=== PATIENT | female | born 1980 | race Caucasian/White ===

== ENCOUNTER → 2017-05-01 15:04 | Outpatient (CLI) | payer OTHER, SELFPAY ==
[2017-05-01 12:54] VITALS: BP 125/86; BMI 23.5
[2017-05-01 20:03] LABS: Chlamydia Trachomatis by PCR Negative (Negative); Neisserai gonorrhoeae by PCR Negative (Negative); Probe Check PASS; Sample Adequacy Control PASS; Specimen Processing Control PASS
[2017-05-06 12:41] LABS: HPV APTIMA, High Risk Negative (Negative)
== END ==
PROVIDERS: Visit Provider Nurse Practitioner Women's Health
DX: Z12.4 Encounter for screening for malignant neoplasm of cervix (principal); Z11.3 Encounter for screening for infections with a predominantly sexual mode of transmission
CPT/HCPCS: 87491; 87591; 88175; G0145

== ENCOUNTER → 2017-12-04 13:02 | Outpatient (CLI) | payer OTHER, SELFPAY | PROVIDERS: Family Provider Nurse Practitioner Family; PCP Nurse Practitioner Family; Visit Provider Nurse Practitioner Adult Health | DX: R31.29 Other microscopic hematuria (principal) | CPT/HCPCS: 87077; 87086; 87088; 87186 ==

== ENCOUNTER → 2017-12-10 17:05 | Outpatient (CLI) | payer OTHER, SELFPAY ==
--- NOTE | 2017-12-10 17:08 | CT_ITS ---
STUDY: CT ABDOMEN AND PELVIS WITH AND WITHOUT CONTRAST REASON FOR EXAM: Female, 37 years old. Microhematuria RADIATION DOSAGE (If Supplied By Facility): CTDIvol = ( 13.57 ) mGy, DLP = ( 1099.32 ) mGycm TECHNIQUE: Transaxial images were obtained from the dome of the diaphragm to the symphysis pubis without oral contrast. 100mL ml of Isovue 300 contrast was administered. Sagittal and coronal images were reconstructed. Individualized dose optimization techniques were used for this CT. COMPARISON: None. FINDINGS: The visualized lung bases are unremarkable. The visualized portions of the heart are within normal limits. Normal liver. Normal gallbladder and extrahepatic biliary system. Normal spleen. Normal pancreas. Normal bilateral adrenal glands. Normal right kidney. Normal left kidney. No obstructive uropathy, or nephrolithiasis Normal visualized stomach. Normal small intestine. There are multiple colonic diverticula consistent with diverticulosis. The appendix is visualized and appears normal. Appendix best seen on coronal recon image 51 Normal abdominal aorta. Normal inferior vena cava. Normal retroperitoneum. Normal urinary bladder. Normal-appearing uterus, there are physiologic ovarian cysts. No demonstrated free fluid. Normal abdominal wall. Normal osseous structures. CT/CT Abd/Pelvis W/WO Contrast IMPRESSION: No obstructive uropathy No CT evidence of an acute inflammatory process, normal appendix visualized. Colonic diverticulosis Electronically Signed: Milan Arnold MD at 16:13 EDT , Service support ,
== END ==
PROVIDERS: Family Provider Nurse Practitioner Family; PCP Nurse Practitioner Family; Visit Provider Nurse Practitioner Adult Health
DX: R31.29 Other microscopic hematuria (principal)
CPT/HCPCS: 74178; Q9967

== ENCOUNTER → 2018-12-14 08:04 | Outpatient (CLI) | payer OTHER, SELFPAY ==
[2017-05-01 12:54] VITALS: BMI 23.5
--- NOTE | 2018-12-14 08:05 | VDLE_ITS ---
Reason For Study: Pain/Swelling RIGHT LEFT CFV is compressible, spontaneous, phasic, CFV is compressible, spontaneous, phasic, competent and demonstrates normal competent, and demonstrates normal augmentation. augmentation. FV is compressible, spontaneous, phasic, FV is compressible, spontaneous, phasic, competent and demonstrates normal competent and demonstrates normal augmentation. augmentation. POP V is compressible, spontaneous, phasic, POP V is compressible, spontaneous, phasic, competent and demonstrates normal competent and demonstrates normal augmentation. augmentation. T/P Trunk is compressible. T/P Trunk is compressible. PTV is compressible. PTV is compressible. RT PerV is compressible. LT PerV is compressible. SFJ is competent and measures 0.62 x 0.65 cm. SFJ is competent and measures 0.66 x 0.72 cm. GSV proximal thigh measures 0.20 x 0.22 cm. GSV proximal thigh measures 0.14 x 0.16 cm. GSV at knee measures 0.16 x 0.18 cm. GSV at knee measures 0.22 x 0.23 cm. GSV INCOMPETENT throughout for greater than GSV INCOMPETENT throughout for greater than 0.5 seconds. 0.5 seconds. ASV proximal calf is INCOMPETENT for greater SSV proximal calf is INCOMPETENT for greater than 0.5 seconds and measures 0.15 x 0.17 cm. than 0.5 seconds and measures 0.14 x 0.17 cm. SSV at junction is INCOMPETENT for greater than 0.5 seconds and measures 0.20 x 0.19 cm. Procedure Exam performed in department. Interpretation Summary Deep veins of the lower extremities are bilaterally patent and compressible segmentally. There is no evidence of deep vein thrombosis on either side. Valvular competence appears intact within the proximal deep venous systems bilaterally. The great saphenous veins appear bilaterally patent and compressible segmentally. Sapheno-femoral junctions are bilaterally competent . Segmental valvular incompetence is noted within the great saphenous veins bilaterally. Small saphenous veins are patent and incompetent bilaterally. The right accessory saphenous vein in the right proximal calf is incompetent. Ordering Physician: Ethan Chun Referring Physician: Estephania Red Performed By: Estephania Hollis Colette
== END ==
PROVIDERS: Family Provider Nurse Practitioner Family; PCP Nurse Practitioner Family; Referring Provider Surgery; Visit Provider Surgery
DX: I83.10 Varicose veins of unspecified lower extremity with inflammation (principal); M79.606 Pain in leg, unspecified; M79.89 Other specified soft tissue disorders
CPT/HCPCS: 93970

== ENCOUNTER 2019-04-01 06:06 | Day surgery (SDC) | payer OTHER, SELFPAY ==
[2019-02-17 11:09] VITALS: BMI 25.2
--- NOTE | 2019-03-24 19:09 | HP.PCM_ITS ---
Problem List (1) Chronic venous insufficiency Status: Chronic (2) Varicose veins with inflammation Status: Chronic (3) Varicose veins of both legs with edema Status: Chronic (4) Varicose veins of both lower extremities with pain Status: Chronic (5) Leg pain Status: Chronic Qualifiers: Laterality: bilateral Qualified Code(s): M79.604 - Pain in right leg; M79.605 - Pain in left leg (6) Leg swelling Status: Chronic History of Present Illness Date of Admission: 04/01/19 Chief Complaint: Chronic venous insufficiency, varicose veins with inflammation, leg pain, leg swelling ? Right lower extremity The patient is a 39 year old F [] With a longstanding history of chronic venous insufficiency, varicose veins with inflammation, leg pain, and leg swelling involving both lower extremities. At this time, her right lower extremity is more symptomatic than the left. The patient has noted varicosities in her lower extremities and associated symptoms since she was a teenager. Her symptoms have become progressively more severe. She describes pain, discomfort, and aching in her lower extremities. This has been associated with swelling. The patient has no history of thrombophlebitis. She has undergone no prior vein procedures in the past. She is active, and sleeps in a recumbent position at night. A venous duplex examination has revealed incompetence involving the right great saphenous vein, the right small saphenous vein, and the right accessory saphenous vein in the proximal calf. The implications of this finding have been discussed with the patient in detail. The options of management have been fully explained. Conservative treatment measures have been implemented, which have included leg elevation, avoidance of idle standing and sitting, graduated compression stockings, weight control measures, active lifestyle, [id number] analgesics, etc. Despite these measures, the patient has remained symptomatic, with symptoms which have adversely affected daily activities, quality of life, and job functions. Past Medical History Past Medical History (Chronic Problems): Chronic Problems (Last Reviewed 05/01/17 @ 12:56 by Cecily García) Chronic venous insufficiency (Chronic) Varicose veins with inflammation (Chronic) Varicose veins of both legs with edema (Chronic) Varicose veins of both lower extremities with pain (Chronic) Leg pain (Chronic) Leg swelling (Chronic) Allergies latex Allergy (Mild, Verified 02/17/19 11:13) Other Sensitive Home Medications: Ambulatory Orders Medication Instructions Recorded NK 05/01/17 Surgical History: Surgical History (Last Updated 05/01/17 @ 12:57 by Cecily García) 4th degree tear in delivery delivered O82 sphincterplasty Surgical History: no surgical history Psychiatric History: No pertinent psych hx [employer] History: - - The patient is a Ab1 (spontaneous) Smoking Status: Never smoker Tobacco Use: Non-smoker Alcohol: Occasional Drugs: None - *Family History Paternal Family History: Family History (Last Updated 05/01/17 @ 12:57 by Cecily García) Mother Diabetes Cancer Review of Systems Constitutional: Denies: Chills, Fever, Weight Change HEENT: Denies: Head Aches, Sinus Congestion, Sinus Drainage Cardiovascular: Denies: Chest Pain, Palpitations Respiratory: Denies: Cough, Shortness of breath at rest, Sputum production Gastrointestinal: Denies: Abdominal Pain, Nausea, Vomiting Genitourinary: Denies: Dysuria Musculoskeletal: Denies: Joint Pain, Joint Tenderness Skin: Denies: Rash, Wounds Neurological: Denies: Numbness, Tingling, Focal weakness Psychiatric: Denies: Anxiety, Depression, Homicidal Ideations, Suicidal Ideations Hematologic/ Lymphatic: Denies: Easy Bruising, Easy Bleeding VTE Information - Inpt Only VTE Present on Admission: No VTE Mechan Device Prophylaxis: SCD's - Left VTE Pharm Prophylaxis ordered?: Yes - Physical Exam Vitals/I&O's: Body Mass Index (BMI) 25.2 General: Alert, Oriented x3, Cooperative, No apparent distress, Well developed, Well nourished HEENT: Atraumatic, PERRLA, EOMI, Normocephalic Neck: Supple, No JVD, Negative Carotid Bruits, Negative Hepatojugular Reflux, No Nodes, No Nuchal Rigidity, Trachea Midline Lungs: Clear to auscultation, Normal air movement, No rhonchi, No wheeze, No rales Cardiovascular: Regular rate, Regular Rhythm, Normal S1, Normal S2, No murmurs Abdomen: Bowel Sounds Present, Soft, Non Tender Extremities: No clubbing, No cyanosis, No edema, Capillary Refill Less than 3 Seconds, No Calf Tenderness, Peripheral Pulses Normal, - - Multiple large varicosities are noted in the right lower extremity Skin: No rashes, No breakdown Musculoskeletal: No Tenderness to Palpation of Joints or Extremities, No Muscle Wasting Neurological: Cranial nerves II-XII grossly intact, Neuro grossly intact Psych/Mental Status: Normal Affect, Appropriate, Alert and oriented to time, place, person, mood and affect Assessment/Plan Impression: This is a 39-year-old generally healthy female with a longstanding history of chronic venous insufficiency, varicose veins with inflammation, leg pain, and leg swelling involving her right lower extremity. Her symptoms have been present for many years, and have become progressively more severe. Despite conservative treatment measures, the patient's symptoms have persisted, and continued to adversely affect her daily activities, quality of life, and job functions. The options of management have been fully explained. The indications and risks of endovenous laser ablation of the right great saphenous vein, the right small saphenous vein, and the incompetent right accessory saphenous vein have been discussed with the patient in detail. Plan: The patient is to be admitted for the purpose of elective endovenous laser ablation of the right great saphenous vein, the right small saphenous vein, and the right accessory saphenous vein in the proximal calf. The indications and risks of the procedure have been discussed with the patient in detail. The appropriate preprocedure consent process has been undertaken. The patient has indicated her desire to proceed.
[2019-04-01] VITALS (7 sets, daily range): BP systolic 112–122; BP diastolic 73–86; PULSE 61–68; RESP 14–18; TEMP 36.1–36.9; O2SAT 95–100; BMI 25.1
[2019-04-01 06:35] LABS: Internal QC Validated? YES +Cl - CLEAR BKGD; Pregnancy, Urine Negative Negative
[2019-04-01] MEDS: Lactated Ringers 1,000 ML 150 ML IV (06:54)
[2019-04-01] MEDS: Enoxaparin 30 MG/0.3 ML Syringe SC (06:55)
[2019-04-01] MEDS: Cefazolin 2 GM in 0.9% Normal Saline 100 ML IV (07:34)
--- NOTE | 2019-04-01 09:59 | DCINST_ITS ---
Discharge Diet: No Restrictions Discharge Activity: May Not Drive - 2-3 days May shower in (days): 2 Weight Bearing Status: Weight bearing as tolerated Lifting Restrictions: 10 pounds Keep extremity elevated above heart level: Right Leg Call your doctor if you observe: Shortness of breath, Fainting spells, Chest pain, Prolonged hiccoughing, Uncontrolled pain Suture Line Care: Avoid Pulling/Pushing Change Dressing in (Days):: 2 - Then rewrap with Edmundo daily from base of toes to upper thigh. Allergies/Adverse Reactions: Allergies latex Allergy (Severe, Verified 03/25/19 10:46) Other Sensitive Medications to take at Discharge L.acidoph,Paracasei, B.lactis [Probiotic] 1 ea PO DAILY 03/25/19 Primary Care Physician: Estephania Red NP-C [Primary Care Provider] - Test Results: Test results from this visit will be discussed in further detail at your follow- up appointment, if applicable. Please Follow Up With: Ethan Chun MD When: 10-14 days
--- NOTE | 2019-04-02 07:46 | OP.PCM_ITS ---
Problem List (1) Chronic venous insufficiency Status: Chronic (2) Varicose veins with inflammation Status: Chronic (3) Varicose veins of both legs with edema Status: Chronic (4) Varicose veins of both lower extremities with pain Status: Chronic (5) Leg pain Status: Chronic Qualifiers: Laterality: bilateral Qualified Code(s): M79.604 - Pain in right leg; M79.605 - Pain in left leg (6) Leg swelling Status: Chronic Report of Operation Date of Procedure: 04/01/19 Pre-Operative Diagnosis: Chronic venous insufficiency, Varicose veins with inflammation, Leg pain, Leg swelling - Right lower extremity Post-Operative Diagnosis: Chronic venous insufficiency, Varicose veins with inflammation, Leg pain, Leg swelling - Right lower extremity Surgery/Procedure Performed:: 1. Endovenous laser ablation of the right great saphenous vein. 2. Endovenous laser ablation of the right small saphenous vein. 3. Endovenous laser ablation of the right accessory saphenous vein (proximal calf) Description of Surgical Findings:: As above Type of Anesthesia:: General, Tumescent Anesthesiologist: Yousif Caban Specimen'faith removed: None Drains: None Estimated Blood Loss (mL): Minimal Description of Procedure: This is a 39-year-old female with a longstanding history of chronic venous insufficiency, varicose veins with inflammation, leg pain, and leg swelling involving her right lower extremity. A preoperative venous duplex examination had revealed segmental valvular incompetence involving her right great saphenous vein, right small saphenous vein, and an accessory saphenous vein in the right proximal calf. The implications of this diagnosis were discussed with the patient in detail. The options of management were fully explained. Conservative treatment measures were implemented, which included leg elevation, avoidance of idle standing and sitting, graduated compression stockings, weight control measures, active lifestyle, [id number] analgesics, etc. Despite these measures, the patient remained symptomatic, with symptoms which adversely affected daily activities, quality of life, and job functions. The indications and risks of endovenous laser ablation of the right great saphenous vein, the right small saphenous vein, and the right accessory saphenous vein were discussed with the patient in detail. The appropriate preprocedure consent process was undertaken. The patient underwent ultrasound marking of the right great saphenous vein, the right small saphenous vein, and the incompetent right accessory saphenous vein preoperatively. She was then brought to the operating room suite, placed supine upon the operating room table, where general anesthesia was administered by the anesthesia staff. The patient's right lower extremity and right groin were prepped and draped in the appropriate sterile manner. The patient was placed in reverse Trendelenburg position. Ultrasonography was used to image the right great saphenous vein in the distal calf. The micropuncture technique was used to access the right great saphenous vein percutaneously in the distal calf. In this manner, a 0.018 inch guidewire was advanced intraluminally into the right g reat saphenous vein, and was visualized by ultrasonography. A micropuncture sheath was advanced over the guidewire. The 0.018 inch guidewire was exchanged for a 0.035 inch guidewire, which was then advanced intraluminally to a level just distal to the right sapheno-femoral junction, as confirmed by ultrasound imaging. A long 4 [place]an sheath was then advanced over the guidewire, and its tip was positioned approximately 2 cm distal to the right sapheno-femoral junction. Attention was then directed to the incompetent right small saphenous vein. To enhance exposure, the right lower extremity was placed in an externally rotated position with the right knee flexed. Using ultrasound imaging and the micropuncture technique, a micropuncture sheath was introduced intraluminally within the right small saphenous vein near the inferior border of the right gastrocnemius muscle, and was left in place, capped, for subsequent access purposes. Attention was then directed to the incompetent right accessory saphenous vein in the proximal calf. Using ultrasound imaging and the micropuncture technique, a micropuncture sheath was introduced intraluminally and was left in place, capped, for subsequent access purposes. Attention was then redirected to the long 4 [place] sheath which had been previously placed intraluminally within the right great saphenous vein. Perivenous tumescent anesthesia was injected from the 4 [place] sheath exit site up to the tip of the sheath near the right sapheno-femoral junction. This was performed segmentally using ultrasound imaging. The AngioDynamics laser fiber was then introduced into the 4 [place] sheath and coupled appropriately. Ultrasonography was used to confirm that the tip of the laser fiber was positioned within the right great saphenous vein approximately 2-1/2 to 3 cm distal to the right sapheno-femoral junction. The patient was placed in Trendelenburg position and the laser fiber was activated. The AngioDynamics laser was slowly withdrawn at a constant rate throughout the length of the right great saphenous vein, thereby ablating the right great saphenous vein segmentally. The energy applied was approximately 60 to 80 J/cm. Following the laser ablation, the laser fiber and sheath were removed, and manual pressure was briefly applied to the percutaneous access site to achieve hemostasis. Attention was then directed to the micropuncture sheath which had been previously placed intraluminally within the right small saphenous vein. A 0.035 inch guidewire was introduced intraluminally and its tip was positioned within the proximal portion of the right small saphenous vein. The long 4 [place] sheath was then advanced over the guidewire and into position within the lumen of the right small saphenous vein. Perivenous tumescent anesthesia was injected from the 4 [place] sheath exit site up to the tip of the 4 [place]an sheath in the proximal right small saphenous vein. This was performed segmentally using ultrasound imaging. The AngioDynamics laser fiber was then introduced into the 4 [place] sheath and coupled appropriately. Ultrasonography was used to confirm that the tip of the laser fiber was positioned within the proximal right small saphenous vein, several centimeters distal to its junction with the deep venous system, and remaining within the superficial portion of the right small saphenous vein. The patient was placed in Trendelenburg position and the laser fiber was activated. The AngioDynamics laser was slowly withdrawn at a constant rate throughout the length of the right small saphenous vein, thereby ablating the right small saphenous vein segmentally. The energy applied was approximately 60 to 80 J/cm. Following the laser ablation, the laser fiber and sheath were removed, and manual pressure was briefly applied to the percutaneous access site to achieve hemostasis. Attention was then directed to the micropuncture sheath which had been previously placed intraluminally within the incompetent right accessory saphenous vein. A 0.035 inch guidewire was introduced intraluminally and positioned within the proximal portion of the incompetent accessory saphenous vein. The long 4 [place]an sheath was advanced over the guidewire and into position intraluminally within the right accessory saphenous vein. Perivenous tumescent anesthesia was injected from the 4 [place] sheath exit site up to the tip of the sheath. This was performed segmentally using ultrasound imaging. The AngioDynamics laser fiber was then introduced into the 4 [place]an sheath and coupled appropriately. Ultrasonography was used to confirm that the tip of the laser fiber was positioned within the proximal right accessory saphenous vein, abutting the previously ablated right great saphenous vein. The patient was placed in Trendelenburg position and the laser fiber was activated. The AngioDynamics laser was slowly withdrawn at a constant rate throughout the length of the right accessory saphenous vein, thereby ablating the right accessory saphenous vein segmentally. The energy applied was approximately 60 to 80 J/cm. Following the laser ablation, the laser fiber and sheath were removed, and manual pressure was briefly applied to the percutaneous access site to achieve hemostasis. After assuring satisfactory hemostasis, the access sites were approximated using Cavilon and Steri-Strips. Dry sterile gauze dressings were applied over each of the access sites, and the leg was wrapped from the base of the toes to the upper thigh with Kerlix, followed by Edmundo wrap. The blood loss for the procedure was minimal. The sponge, needle, and instrument counts at the end of the procedure were correct. The patient tolerated the procedure well and was transported from the operating room to the postanesthesia care unit in stable condition. The amount of tumescent anesthesia utilized, number of joules applied, and treatment times were recorded separately. - Complications None - Admit VTE Documentation VTE Present on Admission: No VTE Mechan Device Prophylaxis: SCD's - Left VTE Pharm Prophylaxis ordered?: Yes
== END 2019-04-01 11:45 | disposition home or self-care (01) ==
LOC: SDC 06:07 → AC 06:08
PROVIDERS: Family Provider Nurse Practitioner Family; PCP Nurse Practitioner Family; Referring Provider Surgery; Visit Provider Surgery
PROC: (CPT 36478; principal; 2019-04-01 07:15)
DX: I83.813 Varicose veins of bilateral lower extremities with pain (principal); I83.11 Varicose veins of right lower extremity with inflammation; I83.12 Varicose veins of left lower extremity with inflammation; R60.0 Localized edema; Z91.040 Latex allergy status; Z87.891 Personal history of nicotine dependence
CPT/HCPCS: 01930; 36478; 36479; 81025; 93971; J7040; J7120; J2405

== ENCOUNTER → 2019-07-28 | Outpatient (CLI) | payer OTHER, SELFPAY ==
[2019-07-28 14:14] VITALS: BMI 25.1
[2019-07-28 16:13] LABS: Red Blood Cells-Urine 0 SEEN /hpf (0-5); White Blood Cells 0 SEEN /hpf (0-5)
[2019-07-28 16:33] LABS: Color, Urine Yellow (Yellow); Glucose, Dipstick Normal (Normal); Ketone-Dipstick Negative (Negative); Leukocyte Esterase-Dipstick Negative /ul (Negative); Nitrite-Dipstick Negative (Negative); Occult Blood-Urine 25 /ul (Negative); Protein-Dipstick Negative (Negative); Specific Gravity, Urine 1.015 (1.002-1.030); Urine Bilirubin Dipstick Negative (Negative); Urine Clarity Clear (Clear); Urine Urobilinogen Normal (Normal)
[2019-07-28 16:40] LABS: Squamous Epithelial Cells - UA 0-5 SEEN /hpf (5-10)
[2019-07-28 16:41] LABS: Bacteria RARE /hpf (None Seen); Mucous, Urine RARE /hpf (<or=2+)
== END | disposition home or self-care (01) ==
LOC: LABSPEC 16:05
PROVIDERS: PCP Nurse Practitioner Family; Referring Provider Physician Assistant; Visit Provider Physician Assistant
DX: R30.0 Dysuria (principal)
CPT/HCPCS: 81001; 87086; 87088

== ENCOUNTER → 2019-08-05 09:08 | Outpatient (CLI) | payer OTHER, SELFPAY ==
[2019-04-01 06:50] VITALS: BMI 25.1
[2019-07-28 14:14] VITALS: BMI 25.1
--- NOTE | 2019-08-05 09:09 | BI_ITS ---
MAMMOGRAPHY - BILATERAL SCREENING REASON FOR EXAM: Female, 39 years old. Routine annual screening examination. PERTINENT HISTORY: Non-contributory. TECHNIQUE: Digital bilateral breast porsche (3D mammographic acquisition) in the CC and MLO projections. 2-D mediolateral oblique (MLO) and craniocaudad (CC) views of both breasts were obtained. CAD: Full Field Digital Mammography with Computer Added Detection was performed. CAD was performed on this study. COMPARISON: None. Baseline examination. FINDINGS: Breast Composition: The breasts are heterogeneously dense, which may obscure small masses. There are no dominant masses or suspicious calcifications. Small bilateral benign-appearing axillary lymph nodes No other significant abnormalities are identified. BI/SCREEN MAMM (CAD) W/PORSCHE BILAT IMPRESSION: Negative screening mammogram. Yearly followup mammogram recommended. (A) ASSESSMENT CATEGORY: BIRADS Category 2: Benign. A letter regarding these results will be sent to the patient by the facility within 30 days. Approximately 10% of breast cancers are not detected by mammography. A normal mammogram should not delay biopsy of a clinically suspicious abnormality. [id number] Electronically Signed: Marek Thompson, at 10:08 EDT , Service support ,
--- NOTE | 2019-08-05 13:01 | VDLE_ITS ---
Reason For Study: S/P EVLA 04/01/2019 RIGHT LEFT CFV is compressible, spontaneous, phasic, CFV is compressible, spontaneous, phasic, competent and demonstrates normal competent, and demonstrates normal augmentation. augmentation. FV is compressible, spontaneous, phasic, FV is compressible, spontaneous, phasic, competent and demonstrates normal competent and demonstrates normal augmentation. augmentation. POP V is compressible, spontaneous, phasic, POP V is compressible, spontaneous, phasic, competent and demonstrates normal competent and demonstrates normal augmentation. augmentation. T/P Trunk is compressible. T/P Trunk is compressible. PTV is compressible. PTV is compressible. RT PerV is compressible. LT PerV is compressible. SFJ is competent and measures 0.53 x 0.56 cm. SFJ is competent and measures 0.51 x 0.55 cm. GSV, SSV and ASV prox calf are occluded s/p GSV proximal thigh measures 0.47 x 0.45 cm. EVLA. GSV at knee measures 0.40 x 0.43 cm. Procedure GSV INCOMPETENT throughout for greater than Exam performed in department. 0.5 seconds. Could not duplicate incompetent left SSV ASV proximal calf is INCOMPETENT for greater compared to 12/14/18. than 0.5 seconds and measures 0.31 x 0.30 cm. SSV at junction is competent and measures 0.22 x 0.22 cm. Interpretation Summary Deep veins of the lower extremities are bilaterally patent and compressible segmentally. There is no evidence of deep vein thrombosis on either side. Valvular competence appears intact within the proximal deep venous systems bilaterally. The right sapheno-femoral junction is competent . The right great saphenous vein, small saphenous vein, and accessory saphenous vein in the proximal right calf are occluded, consistent with a prior endothermal ablation procedure. The left great saphenous vein appears patent and compressible segmentally. The left sapheno-femoral junction is competent . The left great saphenous vein appears segmentally incompetent. The left small saphenous vein is patent and competent. The left accessory saphenous vein in the proximal calf is incompetent. Ordering Physician: Ethan Chun Referring Physician: Estephania Red Performed By: Estephania Hollis Colette
== END ==
PROVIDERS: PCP Nurse Practitioner Family; Referring Provider Nurse Practitioner Women's Health; Visit Provider Surgery
DX: Z12.31 Encounter for screening mammogram for malignant neoplasm of breast (principal); Z98.890 Other specified postprocedural states
CPT/HCPCS: 77063; 77067; 93970

== ENCOUNTER → 2019-10-13 | Outpatient (CLI) | payer OTHER, SELFPAY ==
[2019-10-13 13:48] VITALS: BMI 25.1
== END | disposition home or self-care (01) ==
LOC: LABSPEC 16:11
PROVIDERS: PCP Nurse Practitioner Family; Referring Provider Nurse Practitioner Women's Health; Visit Provider Nurse Practitioner Women's Health
DX: N39.0 Urinary tract infection, site not specified (principal)
CPT/HCPCS: 87086; 87088

== ENCOUNTER 2019-11-04 08:29 | Day surgery (SDC) | payer OTHER, SELFPAY ==
[2019-07-28 14:14] VITALS: BMI 25.1
[2019-10-19 11:41] VITALS: BMI 25.1
--- NOTE | 2019-10-30 18:43 | PCM.HP.STD ---
Problem List (1) Chronic venous insufficiency Status: Chronic (2) Varicose veins with inflammation Status: Chronic (3) Varicose veins of both legs with edema Status: Chronic (4) Varicose veins of both lower extremities with pain Status: Chronic (5) Leg pain Status: Chronic Qualifiers: Laterality: bilateral (6) Leg swelling Status: Chronic History of Present Illness Date of Admission: 11/04/19 Chief Complaint: Chronic venous insufficiency, varicose veins with inflammation, leg pain, leg swelling?right lower extremity The patient is a 39 year old F [] female with a longstanding history of chronic venous insufficiency, varicose veins with inflammation, leg pain, and leg swelling involving her lower extremities. Her right lower extremity is more symptomatic than the left. The patient has previously undergone endovenous laser ablation of the right great saphenous vein, the right small saphenous vein, and the right anterior accessory saphenous vein in the proximal calf. Procedure was performed on April 01, 2019. The patient has recovered uneventfully. However, large painful varicosities persist in the patient's right lower extremity. Patient experiences symptoms which adversely affect daily activities, quality of life, and job functions. Conservative treatment measures have been implemented, which have included leg elevation, avoidance of idle standing and sitting, graduated compression stockings, weight control measures, active lifestyle, gunt-ynw-bqgzjtf analgesics, etc. Despite these measures, the patient has remained symptomatic, experiencing symptoms which adversely affect daily activities, quality of life, and job functions. Past Medical History Past Medical History (Chronic Problems): Chronic Problems (Last Updated 10/19/19 @ 11:13 by Vero Pathak) Chronic venous insufficiency (Chronic) Varicose veins with inflammation (Chronic) Varicose veins of both legs with edema (Chronic) Varicose veins of both lower extremities with pain (Chronic) Leg pain (Chronic) Leg swelling (Chronic) Medical History: Medical History (Last Updated 10/19/19 @ 11:13 by Vero Pathak) vericose vein surgery Allergies latex Allergy (Severe, Verified 10/27/19 10:20) Other Sensitive Home Medications: Ambulatory Orders Medication Instructions Recorded L.acidoph,Paracasei, B.lactis 1 ea PO DAILY 03/25/19 [Probiotic] Surgical History: Surgical History (Last Reviewed 10/19/19 @ 11:12 by Vero Pathak) 4th degree tear in delivery delivered O82 sphincterplasty Surgical History: - - The patient has previously undergone endovenous laser ablation of the right great saphenous vein, small saphenous vein, and accessory saphenous vein in the proximal calf. The procedure was performed on April 01, 2019. 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: - - The patient is a Ab1 Smoking Status: Former smoker Tobacco Use: Non-smoker Alcohol: Occasional Drugs: None - *Family History Maternal Family History: Family History (Last Reviewed 10/19/19 @ 11:12 by Vero Pathak) Mother Diabetes Cancer History Items: Diabetes VTE Information - Inpt Only VTE Present on Admission: No VTE Mechan Device Prophylaxis: SCD's - Left VTE Pharm Prophylaxis ordered?: Yes - Physical Exam Vitals/I&O's: Body Mass Index (BMI) 25.1 General: Alert, Oriented x3, Cooperative, No apparent distress, Well developed, Well nourished HEENT: Atraumatic, PERRLA, EOMI, Normocephalic Neck: Supple, No JVD, Negative Carotid Bruits, Negative Hepatojugular Reflux, No Nuchal Rigidity, Trachea Midline Lungs: Clear to auscultation, Normal air movement, No rhonchi, No wheeze, No rales Cardiovascular: Regular rate, No murmurs Abdomen: Bowel Sounds Present, Soft, Non Tender Extremities: No clubbing, No cyanosis, No edema, Capillary Refill Less than 3 Seconds, No Calf Tenderness, - - Multiple large varicosities are noted in the right lower extremity. There are no open wounds or ulcerations. There are no significant skin changes. Skin: No rashes, No breakdown Musculoskeletal: No Tenderness to Palpation of Joints or Extremities, No Muscle Wasting Neurological: Cranial nerves II-XII grossly intact, Neuro grossly intact Psych/Mental Status: Normal Affect, Appropriate, Alert and oriented to time, place, person, mood and affect Assessment/Plan This is a 39-year-old generally healthy white female with a longstanding history of chronic venous disease. She suffers from chronic venous insufficiency, varicose veins with inflammation, leg pain, and leg swelling in her right lower extremity. She has previously undergone successful endothermal ablation of the incompetent superficial veins in the right lower extremity. Large painful varicose veins have persisted. Despite conservative treatment measures, including leg elevation, avoidance of idle standing and sitting, graduated compression stockings, weight control measures, active lifestyle, anti-inflammatory medications, etc., the patient has continued to have symptoms which adversely affect daily activities, quality of life, and job functions. The options of management have been fully explained. The option of undergoing stab phlebectomy (microphlebectomy) of right lower extremity varicose veins has been discussed with the patient in detail. The indications and risks have been thoroughly explained. The potential benefits have been discussed in detail. The patient's questions have been answered. The patient has indicated her desire to proceed with microphlebectomy of right lower extremity varicose veins. The indications and risks of the procedure have been discussed with the patient detail. The appropriate preprocedure consent process has been undertaken. The patient is to be admitted for outpatient elective surgery.
[2019-11-04] VITALS (8 sets, daily range): BP systolic 105–141; BP diastolic 66–100; PULSE 52–94; RESP 14–18; TEMP 36.1–37.1; O2SAT 98–100; BMI 24.3
--- NOTE | 2019-11-04 | MISC_PTH ---
PATIENT: CHARLIE ROMERO LOC: [facility] – [place] U#:[id number] AGE/SX: 39/F ROOM: RE11/04/[address]: Dr. Ethan Chun MD : 1980 BED: DIS: 11/04/2019 SPEC #: [id number] RECD: 11/04/19 13:25 STATUS: ARMOND REMaida #: [id number] KRISTOFER: 11/04/19 00:[address]: Ethan Chun DEPT: SURGICAL PATHOLOGY RECD BY: Bakari Aguirre ENTERED: 11/04/19 13:25 SP TYPE: [facility] [place] VANGIE DR: Estephania Red, JAXSON Tissues: Vein, NOS Procedures: Surgery Specimen Level III HEADER OPERATION: Microphlebectomy right leg PRE-OP DIAGNOSIS: Varicose veins right leg TISSUE SUBMITTED: Varicose veins right leg MICROSCOPIC DIAGNOSIS Varicose veins of right leg, microphlebectomy: Ectatic vascular tissue consistent with varicose veins. AM:za 11/05/19 MICROSCOPIC DESCRIPTION Slides are reviewed. GROSS DESCRIPTION Received in fixative is one container labeled with the patient's name and designated varicose veins right leg. The specimen consists of multiple tubular pieces of bansal soft tissue measuring in aggregate 2.5 x 2.5 x 0.1 cm and 0.1-3 cm in diameter and 0.1-0.2 cm in diameter. The entire specimen is submitted in one cassette. / SIOBHAN:za 11/04/19 TC:5 CPT: 86957
[2019-11-04] MEDS: Enoxaparin 30 MG/0.3 ML Syringe SC (07:00)
[2019-11-04 08:58] LABS: Internal QC Validated? YES +Cl - CLEAR BKGD; Pregnancy, Urine Negative Negative
[2019-11-04] MEDS: Lactated Ringers 1,000 ML 150 ML IV (09:11)
[2019-11-04] MEDS: Cefazolin 2 GM in 0.9% Normal Saline 100 ML IV (10:55)
[2019-11-04] MEDS: Lactated Ringers 1,000 ML 65 ML IV (12:15)
--- NOTE | 2019-11-04 12:42 | DCINST_ITS ---
Discharge Diet: No Restrictions Discharge Activity: May Not Drive May shower in (days): 2 Weight Bearing Status: Weight bearing as tolerated Lifting Restrictions: 10 pounds Keep extremity elevated above heart level: Right Leg Call your doctor if you observe: Shortness of breath, Chest pain, Prolonged hiccoughing, Uncontrolled pain Suture Line Care: Avoid Pulling/Pushing Remove Dressing in (days):: 2 - The rewrap leg with Edmundo daily from base of toes to upper thigh Allergies/Adverse Reactions: Allergies latex Allergy (Severe, Verified 10/27/19 10:20) Other Sensitive Medications to take at Discharge L.acidoph,Paracasei, B.lactis [Probiotic] 1 ea PO DAILY 03/25/19 Primary Care Physician: Estephania Red NP-C [Primary Care Provider] - Test Results: Test results from this visit will be discussed in further detail at your follow- up appointment, if applicable. Please Follow Up With: Ethan Chun MD - Call [phone] to schedule a followup appointment. When: 10-14 days
[2019-11-04] MEDS: oxyCODONE 5 MG Tablet PO (14:06)
--- NOTE | 2019-11-06 12:24 | OP.PCM_ITS ---
Problem List (1) Chronic venous insufficiency Status: Chronic (2) Varicose veins with inflammation Status: Chronic (3) Varicose veins of both legs with edema Status: Chronic (4) Varicose veins of both lower extremities with pain Status: Chronic (5) Leg pain Status: Chronic Qualifiers: Laterality: bilateral (6) Leg swelling Status: Chronic Report of Operation Date of Procedure: 11/04/19 Pre-Operative Diagnosis: Chronic venous insufficiency, Varicose veins with inflammation, Leg pain, Leg swelling - Right lower extremity Post-Operative Diagnosis: Chronic venous insufficiency, Varicose veins with inflammation, Leg pain, Leg swelling - Right lower extremity Surgery/Procedure Performed:: Stab phlebectomy (microphlebectomy) of right lower extremity varicose veins (24 incisions) Description of Surgical Findings:: As above registered mail clerk: None Type of Anesthesia:: General Anesthesiologist: Anibal Meadows Specimen's removed: Varicose vein segments Drains: None Estimated Blood Loss (mL): Minimal Description of Procedure: This is a 39-year-old female with a longstanding history of chronic venous disease. The patient suffers from chronic venous insufficiency, varicose veins with inflammation, leg pain, and leg swelling in her right lower extremity. She has previously undergone endovenous laser ablation of the right great saphenous vein, right small saphenous vein, and the right anterior accessory saphenous vein. Despite the procedure, large, bulging, painful varicosities have persisted in her right lower extremity. Conservative treatment measures have been implemented, which have included leg elevation, avoidance of idle standing and sitting, graduated compression stockings, weight control measures, active lifestyle, pqfz-eht-bfktnqe analgesics, etc. Despite these measures, the patient has remained symptomatic, with symptoms which have adversely affected daily activities, quality of life, and job functions. The options of management have been fully explained. The indications and risks of microphlebectomy of right lower extremity varicose veins were discussed with the patient in detail. The expectations of the procedure were explained. The appropriate preprocedure consent process was undertaken. The varicose veins in the patient's right lower extremity were marked with indelible ink preoperatively with the patient in the standing position. She was then brought to the operating room suite where general anesthesia was administered by the anesthesia staff. The patient was placed in the prone position, exposing the varicosities in her right lower extremity, which were located posteriorly. The right lower extremity was prepped and draped in the appropriate sterile manner. The patient was then positioned in gentle Trendelenburg position. Attention was directed to the multiple varicosities in the right lower extremity which had been marked with the patient in the standing position preoperatively. The microphlebectomy procedure was performed in standard fashion. In each case, a small stab incision was created overlying the varicosity, using an 18-gauge hypodermic needle. A phlebectomy hook was then used to deliver the varicose vein through the incision, and the vein was divided and avulsed for several centimeters in each direction when possible. In each case, manual pressure was applied to the phlebectomy site to achieve hemostasis. The procedure was repeated multiple times at each of the marked sites, and a total of 24 incisions were required for complete phlebectomy of the marked varicose veins. After assuring satisfactory hemostasis, the incisions were approximated using Cavilon and Steri-Strips. The patient was then returned to the supine position, and dry sterile gauze dressings were applied over each of the incisions, and the leg was wrapped from the base of the toes to the upper thigh with Kerlix, followed by Edmundo wrap. The blood loss for the procedure was minimal. The sponge, needle, and instrument counts at the end of the procedure were correct. The patient tolerated the procedure well and was transported from the operating room to the post-anesthesia care unit in stable condition. - Complications None - Admit VTE Documentation VTE Present on Admission: No VTE Mechan Device Prophylaxis: SCD's - Left VTE Pharm Prophylaxis ordered?: Yes
== END 2019-11-04 14:41 | disposition home health service (06) ==
LOC: SDC 08:30 → AC 08:31
PROVIDERS: Anesthesiology; PCP Nurse Practitioner Family; Referring Provider Surgery; Visit Provider Surgery
PROC: (CPT 37766; principal; 2019-11-04 09:45)
DX: I83.12 Varicose veins of left lower extremity with inflammation (principal); I83.11 Varicose veins of right lower extremity with inflammation; I83.813 Varicose veins of bilateral lower extremities with pain; I83.893 Varicose veins of bilateral lower extremities with other complications; Z11.59 Encounter for screening for other viral diseases; Z87.891 Personal history of nicotine dependence
CPT/HCPCS: 01520; 37766; 81025; 87635; 88304; 94799; J7120; J2405; U0003

== ENCOUNTER → 2019-11-18 12:04 | Outpatient (CLI) | payer OTHER, SELFPAY ==
[2019-11-04 08:55] VITALS: BMI 24.3
--- NOTE | 2019-11-18 12:04 | US_ITS ---
STUDY: ULTRASOUND OF THE FEMALE PELVIS - COMPLETE REASON FOR EXAM: Female, 39 years old. Menorrhagia LMP: 10/27/2019 TECHNIQUE: Transabdominal and Transvaginal TECHNICAL QUALITY: Adequate. COMPARISON: None. FINDINGS: The uterus is anteverted and is in a midline position. The uterus measures 8.7 x 6.6 x 5.0 cm. Normal uterine cervix. The endometrium measures 7 mm in thickness, and is hyperechoic. There is no demonstrated endometrial mass, there are small myometrial cysts.. There is no demonstrated myometrial mass. I.U.D. - The patient does not have an I.U.D. The right ovary is visualized. The right ovary measures 2.7 x 2.3 x 1.7 cm. There is a septated 1.6 cm cyst. There is normal arterial and normal venous vascularity. The left ovary is visualized. The left ovary measures 2.1 x 1.4 x 1.1 cm. There is a simple 0.9 cm follicular cyst There is normal arterial and normal venous vascularity. There is no fluid in the cul-de-sac. The bladder is sonographically normal US/Transvaginal Non- IMPRESSION: No suspicious sonographic findings Electronically Signed: Milan Arnold MD at 17:19 EDT , Service support ,
--- NOTE | 2019-11-18 12:04 | US_ITS ---
STUDY: ULTRASOUND OF THE FEMALE PELVIS - COMPLETE REASON FOR EXAM: Female, 39 years old. Menorrhagia LMP: 10/27/2019 TECHNIQUE: Transabdominal and Transvaginal TECHNICAL QUALITY: Adequate. COMPARISON: None. FINDINGS: The uterus is anteverted and is in a midline position. The uterus measures 8.7 x 6.6 x 5.0 cm. Normal uterine cervix. The endometrium measures 7 mm in thickness, and is hyperechoic. There is no demonstrated endometrial mass, there are small myometrial cysts.. There is no demonstrated myometrial mass. I.U.D. - The patient does not have an I.U.D. The right ovary is visualized. The right ovary measures 2.7 x 2.3 x 1.7 cm. There is a septated 1.6 cm cyst. There is normal arterial and normal venous vascularity. The left ovary is visualized. The left ovary measures 2.1 x 1.4 x 1.1 cm. There is a simple 0.9 cm follicular cyst There is normal arterial and normal venous vascularity. There is no fluid in the cul-de-sac. The bladder is sonographically normal US/Pelvic (Non ) IMPRESSION: No suspicious sonographic findings Electronically Signed: Milan Arnold MD at 17:19 EDT , Service support ,
== END ==
PROVIDERS: PCP Nurse Practitioner Family; Referring Provider Nurse Practitioner Women's Health; Visit Provider Nurse Practitioner Women's Health
DX: N92.0 Excessive and frequent menstruation with regular cycle (principal)
CPT/HCPCS: 76830; 76856

== ENCOUNTER 2020-02-08 10:48 | Day surgery (SDC) | payer OTHER, SELFPAY ==
[2019-11-24 08:15] VITALS: BMI 24.3
[2020-01-27 14:01] VITALS: BMI 24.3
[2020-02-08 11:17] VITALS: BP 113/72; PULSE 72; RESP 16; TEMP 37.1; O2SAT 100; BMI 25.2
[2020-02-08 11:23] LABS: Internal QC Validated? YES +Cl - CLEAR BKGD; Pregnancy, Urine Negative Negative
[2020-02-08] MEDS: Lactated Ringers 1,000 ML 125 ML IV (11:40)
[2020-02-08 11:58] LABS: Hematocrit 42.5 % (37-47); Hemoglobin 13.7 g/dL (12.0-15.0); Mean Corp Hgb Conc 32.2 g/dL (32-36); Mean Corpuscular Hgb 30.2 pg (27.0-32.0); Mean Corpuscular Volume 93.8 fL (81-99); Mean Platelet Vol. 9.3 fl (6.2-12.0); Platelet Count 326 K/mm3 (150-450); RBC Distribution Width CV 12.7 % (11.6-14.6); RBC Distribution Width SD 43.7 fl (35.1-43.9); Red Blood Count 4.53 M/mm3 (4.2-5.4); White Blood Count 5.3 K/mm3 (4.4-11.0)
--- NOTE | 2020-02-08 12:15 | PCM.HPOB.BLA ---
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 Patient continues to have frequent heavy bleeding. Patient reports periods most recently every 16 to 17 days. Reports this past month had extremely severe pain with very heavy bleeding. Female Reproductive History Menopausal Symptoms: No hot flashes Pregancy History 3 Elective abortions Hx Para 2 Spontaneous abortions Hx # Term Pregnancies Ectopic pregnancies Hx # Pregnancies Multiple births # of living children Past Pregnancies Del. Date Name GA/Weeks Outcome Route Bth Weight Infant Gen Labor Lgth Anesthesia Del Locatn Provider FOB Unknown 1997 Nora Female Janenedavide Unknown 2007 Junior Female Ankit ROS Const Constitutional: Reports system reviewed and no additional complaints, except as docu; denies chills or fever(s) Eyes Eyes: Reports system reviewed and no additional complaints, except as docu ENT ENT: Reports system reviewed and no additional complaints, except as docu Cardio Card: Reports system reviewed and no additional complaints, except as docu; denies chest pain or leg swelling Resp Resp: Reports system reviewed and no additional complaints, except as docu; denies cough or dyspnea GI GI: Reports system reviewed and no additional complaints, except as docu; denies constipation, nausea or vomiting : Reports system reviewed and no additional complaints, except as docu and heavy periods; denies difficulty urinating, painful urination, hot flashes, metrorrhagia, pelvic pain, sexual problems, urinary incontinence, vaginal discharge, vaginal dryness, vaginal odor or vaginal itching Musc Musc: Reports system reviewed and no additional complaints, except as docu Skin Skin/Breast: Reports system reviewed and no additional complaints, except as docu Neuro Neuro: Reports system reviewed and no additional complaints, except as docu Psych Psych: Reports system reviewed and no additional complaints, except as docu Exam Const General: cooperative, healthy appearing, comfortable, well developed, well groomed Orientation: alert, awake, oriented x3 Neck Neck: normal visual inspection, full ROM Resp Effort & Inspection: normal respiratory effort, able to speak in complete sentences, symmetric chest movement Cardio Rate: regular rate Skin General: no rashes or lesions noted, elasticity normal, turgor normal Lesions: no lesions Rashes: no rashes Neuro General: alert, awake, oriented x3 Cranial Nerves: CN's II-XI intact bilaterally, PERRL, EOM intact bilaterally Cognition: normal cognition Speech: speech normal Gait: normal gait Extrem General: normal to inspection, full ROM, no pedal edema Psych Appearance: grossly normal Mental Status: mental status grossly normal Mood: congruent mood Affect: normal affect Speech and Movement: speech and movement normal Attitude: cooperative Thought Process: normal Thought Content: normal Assessment & Plan 1. Abnormal uterine bleeding (AUB) N93.9 Plan Presents for preop visit for hysteroscopy, D&C, Lindsay endometrial ablation. Again reviewed risks of procedure with patient and she voices understanding. Patient given opportunity to ask questions. Again reiterated that with doing D&C at time of surgery, if any abnormalities were noted she would likely require additional surgery in the future. Reviewed with patient that there is always a chance of failure of endometrial ablation and that there is always a possibility of not being able to complete the procedure as planned. All questions were answered to the best of my ability. Provided with preop information for day of procedure. Coding Level of Care Code Off vis,est,level 3 Diagnoses Abnormal uterine bleeding (AUB) N93.9 UPDATE- I have seen the patient and performed any clinically relevant updates to the history and physical exam. Babs Haddad MD
--- NOTE | 2020-02-08 12:35 | EMB_PTH ---
PATIENT: CHARLIE ROMERO LOC: [facility] – [place] U#:[id number] AGE/SX: 40/F ROOM: RE02/08/[address]: Dr. Babs Haddad MD : 1980 BED: DIS: 02/08/2020 SPEC #: [id number] RECD: 02/09/20 07:30 STATUS: ARMOND REMaida #: [id number] KRISTOFER: 02/08/20 12:[address]: Babs Haddad DEPT: SURGICAL PATHOLOGY RECD BY: Serena Calderon ENTERED: 02/09/20 08:59 SP TYPE: ENDOM BX/C VANGIE DR: JAXSON Jett Tissues: Endometrium, NOS Procedures: Surgery Specimen Level IV HEADER OPERATION: Hysteroscopy, D & C Lindsay, endometrial ablation PRE-OP DIAGNOSIS: Abnormal uterine bleeding TISSUE SUBMITTED: Endometrial curettings MICROSCOPIC DIAGNOSIS Endometrium, curettings: Proliferative endometrium with focal stromal breakdown. Rare fragments of benign superficial endocervix. AM:za 02/10/20 MICROSCOPIC DESCRIPTION Slides are reviewed. GROSS DESCRIPTION Received in fixative is one container labeled with the patient's name and designated endometrial curettings. The specimen consists of multiple irregular fragments of light to dark bansal soft tissue that in aggregate measure 2 x 1.5 x 0.2 cm. The specimen is totally submitted in one cassette. / AM:za 02/09/20 TC:5 CPT: 56019
[2020-02-08 13:20] VITALS: BP 113/72; BP 114/82; PULSE 63; RESP 14; TEMP 36.6; O2SAT 100
[2020-02-08 13:25] VITALS: BP 113/72; PULSE 67; RESP 14; O2SAT 100
[2020-02-08 13:30] VITALS: BP 111/72; BP 113/72; PULSE 65; RESP 14; O2SAT 100
--- NOTE | 2020-02-08 13:30 | DCINST_ITS ---
Discharge Diet: No Restrictions Discharge Activity: Return to Normal Activity, May Shower, May Take a Tub Bath - in 2 weeks. Allergies/Adverse Reactions: Allergies latex Allergy (Severe, Verified 01/31/20 08:51) Other Sensitive Medications to take at Discharge L.acidoph,Paracasei, B.lactis [Probiotic] 1 ea PO DAILY 03/25/19 Ibuprofen [Motrin] 600 mg PO Q6H PRN PRN #30 tab 02/08/20 The following prescriptions were given: Ibuprofen [Motrin] 600 mg PO Q6H PRN PRN #30 tab PRN Reason: Pain Transmission Status: Pending to [facility] Primary Care Physician: Estephania Red NP, RESIDENT PHYSICIAN IN RADIOLOGY-C [Primary Care Provider] - Test Results: Test results from this visit will be discussed in further detail at your follow- up appointment, if applicable.
--- NOTE | 2020-02-08 13:31 | PCM.OPRPT ---
Problem List (1) Abnormal uterine bleeding (AUB) Status: Acute Report of Operation Date of Procedure: 02/08/20 Pre-Operative Diagnosis: AUB Post-Operative Diagnosis: Same Surgery/Procedure Performed:: Hysteroscopy, D&C, Lindsay endometrial ablation Description of Surgical Findings:: Normal-appearing uterine cavity. Bilateral tubal ostia visualized. Uterine cavity length 5 cm. 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 She was prepped and draped in the dorsolithotomy position with yellowfin stirrups. A weighted speculum space in the posterior aspect of the vagina and a right angle retractor was used to visualize the anterior lip of the cervix. The inner lip of the cervix was grasped with a single-tooth tenaculum. The cervical length was found to be 5 cm. The total length was sounded and found to be 9 cm. The cervix was sequentially dilated using Pepito cervical dilators to accommodate a 5 mm hysteroscope. The hysteroscope was introduced into the uterine cavity. The uterine cavity was noted to be normal and both tubal ostia were visualized without difficulty. Hysteroscope was removed. A sharp uterine curettage was then performed. The Lindsay device was then introduced into the uterine cavity. The device passed both security checks and the ablation was performed without event. All instruments were then removed from the vagina. All counts were correct x2. The patient was awakened from anesthesia and taken to the recovery room in stable condition. - Complications None apparent - Admit VTE Documentation VTE Present on Admission: No VTE Mechan Device Prophylaxis: SCD's VTE Pharm Prophylaxis ordered?: No Multi Select Codes - Urinary/Genital Urinary/Genital CPT Codes: 95319 Lindsay/Novasure, 88493 Hysteroscopy,EMC, Polypectomy
[2020-02-08 13:40] VITALS: BP 112/76; BP 113/72; PULSE 66; RESP 14; TEMP 36.3; O2SAT 100
[2020-02-08 14:31] VITALS: BP 113/72; BP 125/79; PULSE 75; RESP 18; TEMP 37.3; O2SAT 100
== END 2020-02-08 14:35 | disposition home or self-care (01) ==
LOC: SDC 10:48 → AC 10:49
PROVIDERS: PCP Nurse Practitioner Family; Referring Provider Obstetrics & Gynecology; Visit Provider Obstetrics & Gynecology
PROC: 0U5B8ZZ Destruction of Endometrium, Via Natural or Artificial Opening Endoscopic (ICD-10-PCS; CPT 58558; principal; 2020-02-08 12:20)
DX: N93.9 Abnormal uterine and vaginal bleeding, unspecified (principal); Z20.828 Contact with and (suspected) exposure to other viral communicable diseases; Z87.891 Personal history of nicotine dependence
CPT/HCPCS: 00952; 58563; 36415; 81025; 85027; 86850; 86900; 86901; 87426; 88305; J7120; J2405

== ENCOUNTER → 2020-03-22 10:16 | Outpatient (CLI) | payer OTHER, SELFPAY ==
[2020-02-23 11:47] VITALS: BMI 24.8
--- NOTE | 2020-03-22 10:20 | VDLE_ITS ---
Reason For Study: Rt leg discomfort RIGHT CFV is compressible, spontaneous, phasic, competent and demonstrates normal augmentation. FV is compressible, spontaneous, phasic, competent and demonstrates normal augmentation. POP V is compressible, spontaneous, phasic, competent and demonstrates normal augmentation. T/P Trunk is compressible. PTV is compressible. RT PerV is compressible. GSV previous EVLA. Procedure This is a venous duplex using B-mode, color flow and spectral Doppler. Exam performed in department. A preliminary report was called and/or faxed to [facility]. Interpretation Summary Deep veins of the right lower extremity are patent and compressible segmentally. There is no evidence of right lower extremity deep vein thrombosis. Valvular competence appears intact within the proximal deep venous system on the right . The right great saphenous vein has been previously ablated. Ordering Physician: Ethan Chun Referring Physician: Estephania Red Performed By: Estephania Hollis Colette
== END ==
PROVIDERS: PCP Nurse Practitioner Family; Referring Provider Surgery; Visit Provider Surgery
DX: M79.604 Pain in right leg (principal)
CPT/HCPCS: 93971

== ENCOUNTER 2020-10-05 08:34 | Day surgery (SDC) | payer OTHER, SELFPAY ==
[2020-02-23 11:47] VITALS: BMI 24.8
--- NOTE | 2020-10-02 14:12 | PCM.HP.STD ---
[facility] - General General Date of Admission: 10/05/20 Date of Service: 10/05/20 Chief Complaint: Chronic venous insufficiency, varicose veins with inflammation, leg pain, leg swelling?Left lower extremity HPI Narrative CHARLIE BROOKS, is a 40 F who presents with a longstanding history of chronic venous insufficiency, varicose veins with inflammation, leg pain, and leg swelling involving her lower extremities. For many years, the patient has experienced pain and discomfort in her lower extremities. This has become progressively more severe. She has previously undergone endovenous laser ablation of the right great saphenous vein, small saphenous vein, and accessory saphenous vein on April 02, 2019. She subsequently underwent microphlebectomy of right lower extremity varicose veins on November 04, 2019. She has derived significant symptomatic benefit as a result of the prior procedures in her right lower extremity. She has presented recently with symptoms in her left lower extremity related to her chronic venous disease. A venous duplex examination has revealed valvular incompetence of the left great saphenous vein in the left accessory saphenous vein in the proximal calf. The implications of this finding were discussed with the patient in detail. The options of management were fully explained. Conservative treatment measures were implemented, which included leg elevation, avoidance of idle standing and sitting, graduated compression stockings, weight control measures, active lifestyle, rhyw-mnp-vzvdmes analgesics, etc. Despite these measures, the patient has remained symptomatic, with symptoms which adversely affect daily activities, quality of life, and job functions. [facility] Medical History (Updated 10/02/20 @ 14:[address] Ethan Chun MD) Alcohol use Back pain Easy bruising Former smoker Heartburn History of diverticulitis History of edema History of pain when walking Loose, teeth vericose vein surgery Wears glasses Home Medications L.acidoph, paracasei,B. lactis 1 ea PO DAILY 03/25/19 [History Last Taken Unknown] [id number] [Angel (with collagen)] 1 ea PO DAILY 09/28/20 [History Last Taken Unknown] Allergy/AdvReac Type Severity Reaction Status Date / Time latex Allergy Severe Other Verified 09/28/20 10:55 Family History Mother Diabetes Cancer renal cell carsinoma Surgical History (Updated 09/28/20 @ 11:14 by Jacinta Andres) 4th degree tear in delivery delivered H/O dilation and curettage History of hysteroscopy Hx of rectal sphincterotomy Hx of vein stripping sphincterplasty Social History (Updated 02/23/20 @ 13:[address] 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 Const alert, oriented x3, no apparent distress and well nourished General Appearance: cooperative and well developed HEENT normocephalic and head/scalp atraumatic Head and Scalp: atraumatic External Auditory Canal: EAC's normal Tympanic Membrane: TM's normal bilaterally Mouth: oral and palatal mucosa normal Eyes PERRL and EOMs intact bilaterally Neck no JVD Resp normal respiratory effort, normal air movement and clear to auscultation bilaterally Cardio regular rate, S1 normal heart sound, S2 normal heart sound and no murmurs GI soft to palpation and non-distended Extremity no clubbing, cyanosis or edema and no calf tenderness Extremity Narrative: Peripheral extremities are warm and well-perfused. Scattered varicosities are noted in the left lower extremity which are small and medium in size. Skin General Skin Exam: no breakdown and turgor normal Rashes: no rashes Neuro CN's II-XII intact bilaterally, no focal motor deficits and no sensory deficits noted Psych thought process normal, cooperative and affect normal Appearance: appropriate Assessment & Plan Assessment/Plan (1) Chronic venous insufficiency: (2) Varicose veins with inflammation: (3) Leg pain: QUALIFIERS: Laterality: left Qualified Code(s): M79.605 - Pain in left leg (4) Leg swelling: PLAN: This is a 40-year-old female with a longstanding history of chronic venous insufficiency, varicose veins with inflammation, leg pain, and leg swelling involving her left lower extremity. Despite the implementation of conservative treatment measures, the patient has continued to have pain and discomfort in her left lower extremity which interfere with daily activities, quality of life, and job functions. The options of management have been fully explained. The indications and risks of endovenous laser ablation of the left great saphenous vein in the left accessory saphenous vein in the proximal calf have been discussed with the patient in detail The patient is to be admitted for the purpose of elective endovenous laser ablation of the left great saphenous vein in the left accessory saphenous vein in the proximal calf. Indications and risks of the procedure have been discussed with the patient in detail. Expectations regarding the procedure have been thoroughly explained. The appropriate preprocedure consent process has been undertaken. The patient has indicated her desire to proceed.
[2020-10-05] VITALS (8 sets, daily range): BP systolic 107–128; BP diastolic 68–90; PULSE 53–72; RESP 16; TEMP 35.7–36.7; O2SAT 91–100; BMI 24.8
[2020-10-05 09:33] LABS: Internal QC Validated? YES +Cl - CLEAR BKGD; Pregnancy, Urine Negative Negative
[2020-10-05] MEDS: Enoxaparin 30 MG/0.3 ML Syringe SC (09:39)
[2020-10-05] MEDS: Lactated Ringers 1,000 ML 100 ML IV ×2 (09:47→13:08)
[2020-10-05] MEDS: Cefazolin 2 GM in 0.9% Normal Saline 100 ML IV (11:28)
--- NOTE | 2020-10-05 13:13 | DCINST_ITS ---
Discharge Instructions Diet Discharge Diet: No restrictions Activity Discharge Activity: May Not Drive Weight Bearing Status: Weight bearing as tolerated Lifting Restrictions: 10 pounds Keep extremity elevated above heart level: Left Leg and - (Keep involved leg elevated above heart level as much as possible for 48 hours after the procedure.) Dressing / Incision Call your doctor if your incision/area has: Continuous Slow Oozing, Sudden Increased Bleeding (apply pressure.) and Increased Pain/ Swelling Call your doctor if you observe: Fever of 101 or Higher, Change in Color (in your involved extremity), Using more than 1 pad per hour, Shortness of breath, Chest pain and Uncontrolled pain Suture Line Care: Avoid Pulling/Pushing Remove Dressing in: 2 days (Then rewrap left leg with Edmundo daily fom base of toes to groin) Cleanse incision/area with: Keep Dressing Clean & Dry Additional Dressing/Incision Instructions:: It is important to follow these instructions to prevent possible problems and to minimize discomfort. If you hav e any problems or questions about your procedure, contact Dr. Chun at or [phone]. 1. Following your procedure, gauze and an Edmundo bandage will be placed on your leg to protect the treated areas and minimize bruising and swelling. 2. The original dressing should be left intact for 48 hours. Thereafter you may remove the Edmundo bandage and gauze. You will note that Steri-Strips have been used at each of the vein removal sites. Leave these in place. Bruising may be present but will disappear within several days. At this time you may shower. 3. Rewrap your leg with Edmundo each day. The Edmundo bandage should be applied daily upon arising and worn until bedtime. You should always wrap your leg from the base of the toes upward to the thigh. You may wear a medical grade compression stocking on your leg if you prefer. Follow Up Care Please Follow Up With: Ethan Chun MD When: Call [phone] to schedule a follow-up appointment within 1-2 weeks. Test Results: Test results from this visit will be discussed in further detail at your follow-up appointment, if applicable. Discharge Plan Admission Attending Provider: Ethan Chun Discharge Orders/Prescriptions Prescriptions: No Action L.acidoph, paracasei,B. lactis 1 EACH capsule 1 ea PO DAILY RF: 0 Angel (with collagen) 7-7-1.5 gram Powder In Packet 1 ea PO DAILY RF: 0 Disposition Discharge Orders: Discharge Patient (Routine); Ordered 10/05/20 Ordered By: Dr. Ethan Chun
--- NOTE | 2020-10-05 13:55 | OP.PCM_ITS ---
Problems Associated Problem List Diagnoses (1) Chronic venous insufficiency: (2) Varicose veins with inflammation: (3) Leg pain: (4) Leg swelling: Report of Operation Date of Procedure: 10/05/20 Pre-Operative Diagnosis: Chronic venous insufficiency, varicose veins with inf lammation, leg pain, leg swelling - Left lower extremity Post-Operative Diagnosis: Chronic venous insufficiency, varicose veins with inflammation, leg pain, leg swelling - Left lower extremity Surgery/Procedure Performed:: 1. Endovenous laser ablation of the left great saphenous vein 2. Endovenous laser ablation of the left accessory saphenous vein (proximal calf) Description of Surgical Findings:: As above Surgeon: Ethan Chun Type of Anesthesia: General and Tumescent Anesthesiologist: Sim Willis Specimen's removed: None Drains: None Estimated Blood Loss (mL): Minimal Description of Procedure: This is a 40-year-old female who presented with a longstanding history of chronic venous insufficiency, varicose veins with inflammation, leg pain, and leg swelling involving her left lower extremity. A preoperative venous duplex examination had revealed segmental valvular incompetence within the left great saphenous vein in the left accessory saphenous vein in the proximal calf. The implications of this diagnosis were discussed with the patient in detail. The options of management were fully explained. Conservative treatment measures were implemented, which included leg elevation, avoidance of idle sitting and standing, graduated compression stockings, weight control measures, active lifestyle, zlhi-vmm-mexvgra analgesics, etc. Despite these measures, the patient remained symptomatic, with symptoms which adversely affected daily activities, quality of life, and job functions. The patient underwent ultrasound marking of the left great saphenous vein in the left accessory saphenous vein preoperatively. She was then brought to the operating room suite, placed supine upon the operating room table, where general anesthesia was administered by the anesthesia staff. The patient's left lower extremity and left groin were prepped and draped in the appropriate sterile manner. The patient was placed in reverse Trendelenburg position. Ultrasonography was used to image the left great saphenous vein in the distal calf. The micropuncture technique was used to access the left great saphenous vein percutaneously in the distal calf. In this manner, a 0.018 inch guidewire was advanced intraluminally into the left great saphenous vein, and was visualized by ultrasonography. A micropuncture sheath was advanced over the guidewire. The 0.018 inch guidewire was exchanged for a 0.035 inch guidewire, which was then advanced intraluminally to a level just distal to the left sapheno?femoral junction, as confirmed by ultrasound imaging. A long 4 [place] sheath was then advanced over the guidewire, and its tip was positioned approximately 2-1/2 cm distal to the left sapheno-femoral junction. Attention was then directed to the incompetent left accessory saphenous vein in the proximal calf. Using ultrasound imaging and the micropuncture technique, a micropuncture sheath was introduced intraluminally, and was left in place, capped, for subsequent access purposes. Attention was then redirected to the long 4 [place] sheath which had been previously placed intraluminally within the left great saphenous vein. Perivenous tumescent anesthesia was injected from the 4 [place] sheath exit site up to the tip of the sheath near the left sapheno-femoral junction. This was performed segmentally using ultrasound imaging. The AngioDynamics laser fiber was then introduced into the 4 [place] sheath and coupled appropriately. Ultrasonography was used to confirm that the tip of the laser fiber was positioned within the left great saphenous vein approximately 2-1/2 to 3 cm distal to the left sapheno-femoral junction. The patient was placed in Trendelenburg position and the laser fiber was activated. The AngioDynamics laser was slowly withdrawn at a constant rate throughout the length of the left great saphenous vein, thereby ablating the left great saphenous vein segmentally. The energy applied was approximately 60 to 80 J/cm. Following the laser ablation, the laser fiber and sheath were removed, and manual pressure was briefly applied to the percutaneous access site to achieve hemostasis. Attention was then directed to the micropuncture sheath which had been previously placed intraluminally within the incompetent left accessory saphenous vein. A 0.035 inch guidewire was introduced intraluminally and its tip was positioned within the proximal portion of the incompetent accessory saphenous vein. The long 4 [place] sheath was advanced over the guidewire and into po sition intraluminally within the left accessory saphenous vein. Perivenous tumescent anesthesia was injected from the 4 [place] sheath exit site up to the tip of the sheath. This was performed segmentally using ultrasound imaging. The AngioDynamics laser fiber was then introduced into the 4 [place] sheath and coupled appropriately. Ultrasonography was used to confirm that the tip of the laser fiber was positioned within the proximal accessory saphenous vein, abutting the previously ablated left great saphenous vein. The patient was placed in Trendelenburg position and the laser fiber was ac tivated. The AngioDynamics laser was slowly withdrawn at a constant rate throughout the length of the left accessory saphenous vein, thereby ablating the left accessory saphenous vein segmentally. The energy applied was approximately 60 to 80 J/cm. Following the laser ablation, the laser fiber and sheath were removed, and manual pressure was briefly applied to the percutaneous access site to achieve hemostasis. After assuring satisfactory hemostasis, the access sites were approximated using Cavilon and Steri-Strips. Dry sterile gauze dressings were applied over each of the access sites, and the leg was wrapped from the base of the toes to the upper thigh with Kerlix, followed by Edmundo wrap. The blood loss for the procedure was minimal. The sponge, needle, and instrument counts at the end of the procedure were correct. The patient tolerated the procedure well and was transported from the operating room to the postanesthesia care unit in stable condition. The amount of tumescent anesthesia utilized, number of joules applied, and treatment times were recorded separately. Grafts/Implants Used: None Complications None Admit VTE Documentation VTE Present on Admission: No VTE Mechan Device Prophylaxis: SCD's VTE Pharm Prophylaxis ordered?: Yes
[2020-10-05] MEDS: oxyCODONE 5 MG Tablet PO (14:35)
== END 2020-10-05 15:05 | disposition home or self-care (01) ==
LOC: SDC 08:39 → AC 08:39
PROVIDERS: Referring Provider Surgery; Visit Provider Surgery
PROC: (CPT 36478; principal; 2020-10-05 11:15)
DX: I83.12 Varicose veins of left lower extremity with inflammation (principal); I83.812 Varicose veins of left lower extremity with pain; I83.892 Varicose veins of left lower extremity with other complications; Z20.822 Contact with and (suspected) exposure to COVID-19; Z87.891 Personal history of nicotine dependence
CPT/HCPCS: 01930; 36478; 36479; 81025; 87426; 93971; C9803; J7040; J7120; J2405

== ENCOUNTER 2020-10-18 18:26 | Emergency (ER) | payer OTHER, SELFPAY ==
[2020-10-05 09:42] VITALS: BMI 24.8
[2020-10-18 18:27] VITALS: BP 140/75; PULSE 87; RESP 15; TEMP 36.4; O2SAT 100; BMI 25.0
--- NOTE | 2020-10-18 18:36 | ED.RN ---
NO OLD EKGS IN MUSE
--- NOTE | 2020-10-18 19:13 | CT_ITS ---
EXAM: CT ANGIOGRAPHY CHEST WITHOUT AND WITH INTRAVENOUS CONTRAST : 1980 CLINICAL INDICATION: pulmonary embolism TECHNIQUE: Helically acquired angiography images were obtained of the chest without and with intravenous contrast. This CT exam was performed using one or more of the following dose reduction techniques: automated exposure control, adjustment of the mA and/or kV according to patient size, and/or use of iterative reconstruction technique. This report was created using [employer] report generation technology. MIP reconstructed images were created and reviewed. CONTRAST: IV 75mL [id number]-370 COMPARISON: None. FINDINGS: PULMONARY ARTERIES: Unremarkable. Normal in caliber. No evidence of pulmonary embolism. AORTA: Unremarkable. Normal in caliber. No evidence of dissection. GREAT VESSELS OF AORTIC ARCH: Unremarkable. Normal in caliber. No evidence of dissection. LUNGS AND PLEURAL SPACES: Unremarkable. No mass. No consolidation or edema. No pleural effusion or thickening. No pneumothorax. HEART: Unremarkable. Heart size is normal. No pericardial effusion. No signs of right heart strain. MEDIASTINUM: There is a small hiatal hernia. No mediastinal or hilar adenopathy. Esophagus is unremarkable. THYROID: Unremarkable. No thyroid lesions. BONES/JOINTS: Unremarkable. No suspicious lytic or blastic abnormality. CT/CTA Chest W/WO Contrast IMPRESSION: No acute findings in the visualized arteries of the chest. Individualized dose optimization techniques were used for this CT. at 1948 Reported and signed by: Sebastain Gomez MD Electronically Signed: Sebastian Gomez MD at 19:47 EDT Tel , Service support ,
--- NOTE | 2020-10-18 19:13 | EKG12_ITS ---
Test Reason : CP Blood Pressure : / mmHG Vent. Rate : 066 BPM Atrial Rate : 066 BPM P-R Int : 116 ms QRS Dur : 088 ms QT Int : 392 ms P-R-T Axes : 021 055 060 degrees QTc Int : 410 ms Normal sinus rhythm Normal ECG Confirmed by CHINA MCCABE, RIVER ([id number]), greeting card editor RAMANDEEP PETERSEN ([id number]) on 10/23/2020 9:04:21 AM Referred By: SABRINA Confirmed By:MANDY ATKINSON MD
--- NOTE | 2020-10-18 19:19 | EDS_ITS ---
HPI History of Present Illness Chief Complaint: Chest Pain Informant: patient Narrative Narrative: 40-year-old female presents the emergency department with chest pain. Patient states that she recently underwent vein ablation with Dr. Chun. Yesterday she had a whole body massage and around midnight she is woken out of her sleep with a dull pain in her lower chest radiating around the sides and into her back. It occasionally gets sharp particularly with certain movements and deep breathing. It continued throughout the day. No prior history of DVT or PE. [facility] Medical History Alcohol use Back pain Easy bruising Former smoker Heartburn History of diverticulitis History of edema History of pain when walking Loose, teeth vericose vein surgery Wears glasses Home Medications L.acidoph, paracasei,B. lactis 1 ea PO DAILY 03/25/19 [History Last Taken Unknown] [id number] [Angel (with collagen)] 1 ea PO DAILY 09/28/20 [History Last Taken Unknown] Allergy/AdvReac Type Severity Reaction Status Date / Time latex Allergy Severe Other Verified 10/18/20 18:29 Family History Mother Diabetes Cancer renal cell carsinoma Surgical History 4th degree tear in delivery delivered H/O dilation and curettage History of hysteroscopy Hx of rectal sphincterotomy Hx of vein stripping sphincterplasty Social History Smoking Status: Former smoker alcohol intake: current details: social substance use type: does not use caffeine: Yes frequency: 1-2 times per week seatbelt use: always do you feel safe at home: Yes 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[employer] ROS ROS ED Constitutional Constitutional ED: Denies chills or weight loss Eyes Eyes: Denies change in vision or diplopia ENT ENT ED: Denies ear pain, rhinorrhea or sore throat Cardiovascular Cardiovascular: Reports chest pain; Denies orthopnea, palpitations or racing heartbeat Respiratory/Chest Respiratory/Chest: Denies cough, dyspnea or orthopnea Gastrointestinal Gastrointestinal: Denies abdominal pain, diarrhea, nausea or vomiting Genitourinary Genitourinary ED: Denies dysuria, hematuria or urinary frequency Musculoskeletal Musculoskeletal: Denies arthralgias or myalgias Integumentary Denies abscess or rash Neurologic Neurologic: Denies headache(s) or weakness Psychiatric Psychiatric: Denies anxiety, depression, suicidal ideation or suicidal thoughts Endocrine Endocrinology: Denies polydipsia, polyphagia or polyuria Allergic/Immunologic Allergic/Immunologic ED: Denies mouth swelling, tongue swelling or urticaria EXAM Physical Exam Const Vital Signs: 10/18/20 18:27 10/18/20 19:07 Temperature 97.6 F L Temperature Source Temporal Pulse Rate 87 Respiratory Rate 15 Respiratory Effort Normal Blood Pressure 140/75 H Blood Pressure Mean 96 Pulse Ox 100 Oxygen Delivery Method Room Air Positive well nourished and well developed General Appearance ED: well developed HEENT Reports normocephalic, head/scalp atraumatic and moist mucous membranes Eyes PERRL and EOMs intact bilaterally Neck no lymphadenopathy, supple and no JVD Chest Wall Chest Narrative: Tender to palpation over the lower anterior chest. Pain is reproducible with certain movements. Resp normal respiratory effort and clear to auscultation bilaterally Cardio regular rate, regular rhythm and no murmurs GI normal to inspection, nondistended, normoactive bowel sounds and non-tender Palpation: soft Back/Spine no CVA tenderness and normal ROM Extremity normal to inspection General Extremety ED: Negative for edema General Extremity: Negative for edema Neuro oriented x3 and CN's II-XII intact bilaterally Sensorium / Orientation: alert Motor Exam: strength 5/5 throughout Psych mental status grossly normal Mood & Affect: Negative for depressed or tearful Skin no rashes or lesions noted and no wounds MDM MDM MDM Narrative Medical decision making narrative: CTA of the chest was obtained to rule out pulmonary embolism given her high risk with her recent surgery. This was negative for pulmonary embolism or dissection. Basic blood work showed normal CBC and BMP. Troponin was negative. At this point I believe the patient can be safely discharged home. Lab Data Attestation: I reviewed the patient's lab results. Labs: Laboratory Results - last 24 hr 10/18/20 10/18/20 19:14 19:14 WBC 10.1 RBC 4.60 Hgb 13.6 Hct 42.9 MCV 93.3 MCH 29.6 MCHC 31.7 L RDW Std Deviation 43.8 RDW Coeff of Morgan 12.8 Plt Count 298 MPV 9.4 Immature Gran % (Auto) 0.300 Neut % (Auto) 67.6 Lymph % (Auto) 23.6 Shannon % (Auto) 7.0 Eos % (Auto) 1.2 Baso % (Auto) 0.3 Absolute Neuts (auto) 6.9 Absolute Lymphs (auto) 2.39 Nucleated RBC % 0 Sodium 136 Potassium 3.6 Chloride 107 Carbon Dioxide 24.0 Anion Gap 5 BUN 11 Creatinine 0.79 Estim Creat Clear Calc 91.13 Est GFR (MDRD) Af Amer 103 Est GFR (MDRD) Non-Af 85 BUN/Creatinine Ratio 13.9 Glucose 99 Calcium 9.4 Troponin I High Sens < 3.0 L Radiography Diagnostic Testing: Radiology Impression Chest CTA 10/18/20 19:13 IMPRESSION: No acute findings in the visualized arteries of the chest. Individualized dose optimization techniques were used for this CT. at 1948 Reported and signed by: Sebastian Gomez MD Electronically Signed: Sebastian Gomez MD at 19:47 EDT Tel , Service support , EKG Initial EKG: Attestation: I personally reviewed and interpreted this EKG as follows: Comments: EKG shows a normal sinus rhythm at a rate of 66. No concerning features of ACS or ectopy Discharge Plan Triage Chief Complaint: Chest Pain ED Provider: Rudy Zimmer Dx/Rx/DC Orders Clinical Impression: Acute chest wall pain Instructions: ED Chest Pain, Noncardiac Prescriptions: No Action L.acidoph, paracasei,B. lactis 1 EACH capsule 1 ea PO DAILY RF: 0 Angel (with collagen) 7-7-1.5 gram Powder In Packet 1 ea PO DAILY RF: 0 Referrals: [facility] [Other] Disposition Disposition: Home, Self Care
[2020-10-18 19:36] LABS: Absolute Lymphocyte Count 2.39 X10^3/uL (0.83-4.51); Absolute Neutrophil Count 6.9 X10^3/uL (2.0-7.7); Basophil# 0.03 X10^3/uL; Basophil% 0.3 % (0-1); Eosinophil# 0.12 X10^3/uL; Eosinophils% 1.2 % (0-5); Hematocrit 42.9 % (37-47); Hemoglobin 13.6 g/dL (12.0-15.0); Lymphocyte # 2.39 X10^3/ul (0.83-4.51); Lymphocyte % 23.6 % (19-41); Mean Corp Hgb Conc 31.7 g/dL (32-36); Mean Corpuscular Hgb 29.6 pg (27.0-32.0); Mean Corpuscular Volume 93.3 fL (81-99); Mean Platelet Vol. 9.4 fl (6.2-12.0); Monocyte# 0.71 X10^3/uL; NRBC Flagged by Analyzer 0 % (0-5); Neutrophil # 6.85 X10^3/uL (2.7-7.7); Neutrophil % 67.6 % (47-70); Platelet Count 298 K/mm3 (150-450); RBC Distribution Width CV 12.8 % (11.6-14.6); RBC Distribution Width SD 43.8 fl (35.1-43.9); White Blood Count 10.1 K/mm3 (4.4-11.0)
[2020-10-18 19:50] LABS: Anion Gap 5 (5-15); BUN 11 mg/dL (7-18); BUN/Creat Ratio 13.9 RATIO (10-20); Calcium,Total 9.4 mg/dL (8.5-10.1); Chloride 107 mmol/L (98-107); Creatinine, Serum 0.79 mg/dL (0.55-1.02); EST Glomerular Filtration Rate 85 mL/min (>60); Est Glom Filt Rate - Afr Amer 103 mL/min (>60); Estimated Creatinine Clearance 91.13 ml/min; Glucose 99 mg/dL (74-106); Potassium 3.6 mmol/L (3.5-5.1); Sodium Level 136 mmol/L (136-145); Troponin-I HS < 3.0 pg/mL (3.0-53.7)
[2020-10-18 20:22] VITALS: BP 118/73; PULSE 67; RESP 16; O2SAT 97
== END 2020-10-18 20:22 | disposition home or self-care (01) ==
PROVIDERS: Emergency Provider Emergency Medicine
DX: R07.89 Other chest pain (principal); Z87.891 Personal history of nicotine dependence
CPT/HCPCS: 71275; 80048; 84484; 85025; 93005; 99284; Q9967; A4216

== ENCOUNTER → 2020-10-24 09:28 | Outpatient (CLI) | payer OTHER, SELFPAY ==
[2020-10-24 08:52] VITALS: BMI 25.0
[2020-10-24 10:39] LABS: Thyroid Stim Hormone (TSH) 1.69 uIU/mL (0.358-3.74)
== END ==
PROVIDERS: Referring Provider Nurse Practitioner Women's Health; Visit Provider Nurse Practitioner Women's Health
DX: R63.5 Abnormal weight gain (principal)
CPT/HCPCS: 36415; 84443

== ENCOUNTER → 2020-11-02 14:34 | Outpatient (CLI) | payer OTHER, SELFPAY ==
[2020-10-24 08:52] VITALS: BMI 25.0
--- NOTE | 2020-11-02 14:35 | BI_ITS ---
MAMMOGRAPHY - BILATERAL SCREENING REASON FOR EXAM: Female, 40 years old. Routine annual screening examination. PERTINENT HISTORY: Non-contributory. TECHNIQUE: Digital bilateral breast porsche (3D mammographic acquisition) in the CC and MLO projections. 2-D mediolateral oblique (MLO) and craniocaudad (CC) views of both breasts were obtained. CAD: Full Field Digital Mammography with Computer Added Detection was performed. COMPARISON: Comparison is made with prior study dated 08/05/2019. FINDINGS: Breast Composition: The breasts are heterogeneously dense, which may obscure small masses. There are no dominant masses or suspicious calcifications. Stable small benign appearing bilateral axillary lymph nodes. No other significant abnormalities are identified. There has been no significant change since the prior study. BI/SCRN MAMM (CAD)W/PORSCHE BILAT IMPRESSION: Stable bilateral screening mammogram. Yearly follow-up mammogram recommended. (A) ASSESSMENT CATEGORY: BIRADS Category 2: Benign. A letter regarding these results will be sent to the patient by the facility within 30 days. Approximately 10% of breast cancers are not detected by mammography. A normal mammogram should not delay biopsy of a clinically suspicious abnormality. [id number] Electronically Signed: Marek Thompson MD at 8:49 EDT , Service support ,
== END ==
PROVIDERS: Referring Provider Nurse Practitioner Women's Health; Visit Provider Nurse Practitioner Women's Health
DX: Z12.31 Encounter for screening mammogram for malignant neoplasm of breast (principal)
CPT/HCPCS: 77063; 77067

== ENCOUNTER 2020-12-01 09:12 | Day surgery (SDC) | payer OTHER, SELFPAY ==
--- NOTE | 2020-12-01 | IMM_PTH ---
PATIENT: CHARLIE ROMERO LOC: EN U#:[id number] AGE/SX: 40/F ROOM: RE12/01/[address]: Dr. Pepe Titus MD : 1980 BED: DIS: 12/01/2020 SPEC #: [id number] RECD: 12/01/20 11:34 STATUS: ARMOND SANCHEZ #: [id number] KRISTOFER: 12/01/20 00:[address]: Pepe Titus DEPT: IMMUNOHISTOCHEMISTRY RECD BY: Vonda Gould Tissues: Stomach, NOS Procedures: H Pylori (initial) PHYSICIAN & INSTITUTION [place] [id number] SPECIMEN INFORMATION: Tissue Source: B. Antrum biopsy Clinical Info: Odynophagia Specimen Number: [id number] CPT code: 86792 METHODOLOGY: Deparaffinized sections of prefer/formalin-fixed tissue or PAP/DQ stained slides are incubated with monoclonal/polyclonal antibodies/oligonucleotide probes. Localization is made via biotin free immunoperoxidase method. Appropriate controls are performed and reacted as expected. Results on target cell population are indicated in the following table: RESULTS: ANTIBODY / CLONE RESULT Block B H Pylori (polyclonal) negative These tests were developed and their performance characteristics determined by [facility]. They may not have been cleared or approved by the U.S. Food and Drug Administration. The FDA has determined that such clearance or approval is not necessary. INTERPRETATION: B. Antrum biopsy: Negative for Helicobacter pylori organisms. SIOBHAN:za 12/04/2020
--- NOTE | 2020-12-01 09:15 | PCM.HP.BLA ---
History and Physical Date of Admission: 12/01/20 Intake Visit Reasons: INDIGESTION, HIATAL HERNIA ? Chief Complaint: Hiatal hernia General Studies Program Chair Required: No Is patient in pain?: No Allergies latex Allergy (Severe, Verified 11/21/20 13:05) Other nitrofurantoin [From Macrobid] Allergy (Intermediate, Verified 11/21/20 13:05) Nausea Medications L.acidoph, paracasei,B. lactis 1 ea PO DAILY 03/25/19 [History Confirmed 11/21/20] [id number] [Angel (with collagen)] 1 ea PO DAILY 09/28/20 [History Confirmed 11/21/20] multivitamin 1 tab PO DAILY 10/24/20 [History Confirmed 11/21/20] [facility] Medical History Alcohol use Back pain Easy bruising Former smoker Heartburn History of diverticulitis History of edema History of pain when walking Loose, teeth vericose vein surgery Wears glasses Surgical History 4th degree tear in delivery delivered H/O dilation and curettage History of hysteroscopy Hx of rectal sphincterotomy Hx of vein stripping sphincterplasty Family History Mother Diabetes Cancer renal cell carsinoma Social History Smoking Status: Former smoker alcohol intake: current details: social substance use type: does not use caffeine: Yes frequency: 1-2 times per week seatbelt use: always do you feel safe at home: Yes 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 The patient is referred by Emiliana Art CNP and a written compromise surgical consult recommendations will return to her. As recently as October 08, 2020 the patient has had endovenous ablation of the left great saphenous vein and left accessory saphenous vein per Dr. Ethan Chun. On February 08, [address] Babs Haddad the patient had hysteroscopy with D&C and Lindsay endometrial ablation. There is additional evidence that Dr. Ethan Chun has further assisted her with endovenous ablation on November 06, 2019 and April 02, 2019. Because of concerns of a pulmonary embolism on October 18, 2020 the patient had a CTA at the [facility] through the emergency room. This demonstrated a small hiatal hernia with otherwise unremarkable esophagus. There were no acute findings on that examination. Previously because of microhematuria on December 10, 2017 at the [facility] the patient had an abdominal pelvic CT. There was felt to be a normal visualized stomach. Multiple colonic diverticulosis. Again there was no acute findings. Most recent laboratory of October 24, 2020 demonstrates a white count of 6.7 with a hemoglobin 13.7 hematocrit 41.9 platelet count 313,000. TSH was 1.69 The patient describes mostly a pain. She will be eating foods and will feel like it gets stuck. She has to stretch out to help it go through. She states that occasionally she will feel a rumble in her throat. But she distinctly does not seem to describe water brash or heartburn. She was prescribed famotidine by her primary care provider however the patient understood that to be taken on a as needed basis for heartburn. She states that she does not have heartburn She does not think that she has had COVID-19. 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[employer] ROS General General: Yes weight change; No appetite, fatigue, colon cancer, breast cancer or weakness HEENT HEENT: No difficulty swallowing, eye injury, eye surgery, swollen glands or hoarseness Endo Endocrine: No thyroid disease, diabetes mellitus, thyroid cancer, Hair loss, heat intolerance or cold intolerance Skin Skin: No rash or changing moles Breast Breast: No left breast lump, right breast lump, nipple discharge, breast pain, abnormal mammogram, abnormal US or breast enlargement Musc Musculoskeletal: No back problems, arthritis, rheumatoid arthritis, gout or joint pain Cardio Cardiovascular: No murmur, pacemaker, heart disease, atrial fibrillation, high blood pressure, heart attack, heart stent, palpitations, shortness of breat with exertion or chest pain Psych Psychiatric: No depression, anxiety or hearing voices Resp Respiratory: No shortness of breath, No sleep apnea, No cough, No COPD, No asthma, No emphysema and No wheezing Gastro Gastrointestinal: Yes abdominal pain, Yes nausea or vomiting, No diarrhea, Yes constipation, No blood in stool, No acid reflux, No hemorrhoids, No ulcers, No gallbladder problem and No black,tarry stools Rebel Hematologic: No blood thinners, No blood disorders, No bleeding, No anemia and No blood clots Neuro Neurologic: No system reviewed and no additional complaints, except as documented, No as per HPI, No abnormal gait, No abnormal hearing, No abnormal movements, No abnormal speech, No behavioral changes, No burning sensations, No confusion, No convulsions, No disequilibrium, No dizziness, No localized weakness, No frequent falls, No headache(s), No lack of coordination, No loss of vision, No memory loss, No numbness, No other visual disturbances, No radicular pain, No restless legs, No sensory deficit, No syncope, No tingling, No tremor(s), No weakness and No other Exam Const General: cooperative, healthy appearing and comfortable [facility] Head: normal to inspection Eyes General: appearance normal, both eyes and all related structures Neck Neck: normal visual inspection Other: Supple, carotids 3+, no bruits Resp Effort & Inspection: normal respiratory effort Auscultation: clear to auscultation bilaterally Cardio Rate: regular rate Rhythm: regular rhythm GI Palpation: soft and no hepatosplenomegaly Auscultation: normal bowel sounds Musc Cervical Spine: normal cervical lordosis Neuro Cognition: normal cognition Extrem General: no calf tenderness COVID (Procedure Consent) Procedure Criteria Procedure Criteria: Yes Elective The surgeon/proceduralist and patient have discussed in detail the risk of exposure to and/or potential harm posed by the COVID-19 virus with having a surgery/procedure at this time versus the risk of delaying the surgery/procedure. It is not possible to know either the risk of delaying the surgery or procedure or chance of getting an infection with perfect accuracy, but a joint decision was made between the patient and the surgeon/proceduralist to proceed at this time with the scheduled surgery/procedure as indicated on the consent form. Assessment and Plan Assessment and Plan (1) Odynophagia: Status: Acute Plan - Dr. Pepe Titus MD: I strongly suspect this patient has gastroesophageal reflux disease with likely distal esophageal inflammation irritation causing her to have a done aphasia. I recommended that she initiate the famotidine 20 mg orally twice daily and is therapeutic rather than as needed basis. I recommend to her an esophagogastroduodenoscopy with possible biopsy or polypectomy. Careful inspection for H. pylori or distal esophagitis or Schatzki ring or eosinophilic esophagitis will be pursued. I have additionally discussed the potential treatment with esophageal dilatation if a stricture or ring is identified. She concurs and would like to schedule proceed as noted. While we are awaiting scheduling she will pursue medical treatment with the famotidine as noted. I very much appreciate the kind opportunity of assisting with her surgical care Copy:Emiliana Art, GARY Titus M.D., F.A.C.S. I have re-examined the patient. There are no clinical changes since date of exam. Pepe Titus M.D., F.A.C.S.
[2020-12-01] MEDS: Lactated Ringers 1,000 ML 100 ML IV (09:40)
[2020-12-01 09:51] LABS: Internal QC Validated? YES +Cl - CLEAR BKGD; Pregnancy, Urine Negative Negative
[2020-12-01 09:52] VITALS: BP 114/71; PULSE 65; RESP 18; TEMP 36.6; O2SAT 99; BMI 26.1
--- NOTE | 2020-12-01 10:15 | EGD_PTH ---
PATIENT: CHARLIE ROMERO LOC: EN U#:[id number] AGE/SX: 40/F ROOM: RE12/01/[address]: Dr. Pepe Titus MD : 1980 BED: DIS: 12/01/2020 SPEC #: [id number] RECD: 12/01/20 11:00 STATUS: ARMOND SANCHEZ #: [id number] KRISTOFER: 12/01/20 10:[address]: Pepe Titus DEPT: SURGICAL PATHOLOGY RECD BY: Serena Calderon Tissues: A - Duodenum, NOS B - Gastric mucous membrane C - Esophagus, NOS D - Esophagus, NOS Procedures: Special Stain Group II Surgery Specimen Level IV Alcian Blue/PAS (control) HEADER OPERATION: EGD ([facility]) PRE-OP DIAGNOSIS: Odynophagia TISSUE SUBMITTED: A. Duodenum biopsy, B. Antrum biopsy, C. Distal esophagus biopsy, D. Mid esophagus biopsy MICROSCOPIC DIAGNOSIS A. Duodenum, biopsy: Fragments of duodenal mucosa, no pathologic diagnosis. B. Antrum, biopsy: Mild gastritis. See microscopic description and comment. C. Distal esophagus, biopsy: Fragments of gastroesophageal mucosa with mild chronic inflammation. Intestinal metaplasia (goblet cell metaplasia) not identified. See comment. D. Mid esophagus, biopsy: A fragment of squamous epithelium, no pathologic diagnosis. SJ:rg 12/04/2020 COMMENT B. The results of immunohistochemistry for Helicobacter pylori will be reported separately ([id number]). C. The specimen predominantly consists of squamous mucosa. Scant fragment of gastric epithelium is noted. Alcian blue/PAS stain with matched control is used in the evaluation of the specimen. MICROSCOPIC DESCRIPTION Slides are reviewed. B. The specimen shows fragments of gastric mucosa with chronic inflammatory cell infiltrates in the lamina propria consisting of lymphocytes and plasma cells, consistent with mild chronic gastritis. GROSS DESCRIPTION A - Received in fixative is one container labeled with the patient's name and designated duodenum biopsy. The specimen consists of multiple irregular fragments of light bansal soft tissue that in aggregate measure 0.6 x 0.5 x 0.1 cm. The specimen is totally submitted in one cassette. B - Received in fixative is one container labeled with the patient's name and designated antrum biopsy. The specimen consists of two irregular fragments of light bansal soft tissue that in aggregate measure 0.5 x 0.3 x 0.1 cm. The specimen is totally submitted in one cassette. C - Received in fixative is one container labeled with the patient's name and designated distal esophagus biopsy. The specimen consists of multiple irregular fragments of light bansal soft tissue that in aggregate measure 1 x 0.6 x 0.1 cm. The specimen is totally submitted in one cassette. D - Received in fixative is one container labeled with the patient's name and designated mid esophagus biopsy. The specimen consists of one irregular fragment of light bansal soft tissue that measures 0.6 x 0.2 x 0.1 cm. The specimen is totally submitted in one cassette. / AM:az 12/01/20 TC:3 CPT: 45654 x4, 18800
[2020-12-01 10:30] VITALS: BP 114/71; BP 98/63; PULSE 85; RESP 16; TEMP 36.3; O2SAT 98
--- NOTE | 2020-12-01 10:32 | OP.CCLET_ITS ---
12/01/2020 Pura Re : Upper GI endoscopy procedure for Laisha Neves This procedure was performed on Tuesday, December 01, 2020. My impressions and recommendations are as follows: Impressions : - LA Grade A reflux esophagitis. Biopsied. - Small hiatal hernia. - Normal mid esophagus. Biopsied. - Erythematous mucosa in the antrum. Biopsied. - Normal examined duodenum. Biopsied. Recommendations : - Discharge patient to home. - Resume previous diet. - Continue present medications. - Telephone my office for pathology results in 1 week. The findings of the hiatal hernia and evidence consistent with reflux esophagitis would seem to correlate with patient complaints. At the time of the office visit she was encouraged to used her previously prescribed famotidine 20 mg orally twice daily. She will be notified of pathology results and any additional recommendations. My findings are described in the full procedure note, which is enclosed. If I can be of further assistance, please feel free to contact me at Doctor phone number(s): Work: . Sincerely, Pepe Titus MD 12/01/2020 10:32:00 AM This report has been signed electronically.
--- NOTE | 2020-12-01 10:32 | OP.EGD_ITS ---
Patient Name: Laisha Middleton Procedure Date: 12/01/2020 10:14 AM Date of : 1980 Age: 40 Procedure: Upper GI endoscopy Indications: Odynophagia Providers: Pepe Titus MD Referring MD: Pepe Titus MD Medicines: See the Anesthesia note for documentation of the administered medications Complications: No immediate complications. Procedure: Pre-Anesthesia Assessment: - Prior to the procedure, a History and Physical was performed, and patient medications and allergies were reviewed. The patient's tolerance of previous anesthesia was also reviewed. The risks and benefits of the procedure and the sedation options and risks were discussed with the patient. All questions were answered, and informed consent was obtained. Prior Anticoagulants: The patient has taken no previous anticoagulant or antiplatelet agents. ASA Grade Assessment: II - A patient with mild systemic disease. After reviewing the risks and benefits, the patient was deemed in satisfactory condition to undergo the procedure. After obtaining informed consent, the endoscope was passed under direct vision. Throughout the procedure, the patient's blood pressure, pulse, and oxygen saturations were monitored continuously. The Endoscope was introduced through the mouth, and advanced to the second part of duodenum. The upper GI endoscopy was accomplished without difficulty. The patient tolerated the procedure well. Scope In: 10:19:40 AM Scope Out: 10:25:29 AM Total Procedure Duration Time 0 hours 5 minutes 49 seconds Findings: LA Grade A (one or more mucosal breaks less than 5 mm, not extending between tops of 2 mucosal folds) esophagitis with no bleeding was found 40 cm from the incisors. Biopsies were taken with a cold forceps for histology. A small hiatal hernia was present. The mid esophagus was normal. Biopsies were taken with a cold forceps for histology. Diffuse mildly erythematous mucosa without bleeding was found in the gastric antrum. Biopsies were taken with a cold forceps for histology. The examined duodenum was normal. Biopsies were taken with a cold forceps for histology. Impression: - LA Grade A reflux esophagitis. Biopsied. - Small hiatal hernia. - Normal mid esophagus. Biopsied. - Erythematous mucosa in the antrum. Biopsied. - Normal examined duodenum. Biopsied. Recommendation: - Discharge patient to home. - Resume previous diet. - Continue present medications. - Telephone my office for pathology results in 1 week. The findings of the hiatal hernia and evidence consistent with reflux esophagitis would seem to correlate with patient complaints. At the time of the office visit she was encouraged to used her previously prescribed famotidine 20 mg orally twice daily. She will be notified of pathology results and any additional recommendations. Procedure Code(s): --- Professional --- 02479, Esophagogastroduodenoscopy, flexible, transoral; with biopsy, single or multiple Diagnosis Code(s): --- Professional --- K21.0, Gastro-esophageal reflux disease with esophagitis K44.9, Diaphragmatic hernia without obstruction or gangrene K31.89, Other diseases of stomach and duodenum R13.10, Dysphagia, unspecified CPT copyright 2017 [employer]. All rights reserved. The codes documented in this report are preliminary and upon cpc coder review may be revised to meet current compliance requirements. Pepe Titus MD 12/01/2020 10:32:00 AM This report has been signed electronically. Number of Addenda: 0 Note Initiated On: 12/01/2020 10:14 AM
[2020-12-01 10:35] VITALS: BP 110/82; BP 114/71; PULSE 69; RESP 16; O2SAT 100
[2020-12-01 10:40] VITALS: BP 107/70; BP 114/71; PULSE 75; RESP 16; O2SAT 100
[2020-12-01 10:47] VITALS: BP 114/71; BP 114/73; PULSE 64; RESP 16; TEMP 36.2; O2SAT 100
[2020-12-01 11:06] VITALS: BP 114/71
== END 2020-12-01 11:24 | disposition home or self-care (01) ==
LOC: EN 09:13 → AC 09:13
PROVIDERS: Anesthesiology; Referring Provider Surgery; Visit Provider Surgery
PROC: 0DJ08ZZ Inspection of Upper Intestinal Tract, Via Natural or Artificial Opening Endoscopic (ICD-10-PCS; CPT 43235; principal; 2020-12-01 10:10)
DX: K21.00 Gastro-esophageal reflux disease with esophagitis, without bleeding (principal); K29.70 Gastritis, unspecified, without bleeding; K30 Functional dyspepsia; K44.9 Diaphragmatic hernia without obstruction or gangrene; R13.10 Dysphagia, unspecified; Z20.822 Contact with and (suspected) exposure to COVID-19; Z79.899 Other long term (current) drug therapy; Z87.891 Personal history of nicotine dependence
CPT/HCPCS: 43239; 81025; 87426; 88305; 88313; 88342; C9803; J7120; J2405

== ENCOUNTER → 2021-01-12 12:40 | Outpatient (CLI) | payer OTHER, SELFPAY ==
--- NOTE | 2021-01-12 12:42 | VDLE_ITS ---
Reason For Study: chronic venous insufficiency RIGHT LEFT CFV is compressible, spontaneous, phasic, CFV is compressible, spontaneous, phasic, competent and demonstrates normal competent, and demonstrates normal augmentation. augmentation. FV is compressible, spontaneous, phasic, FV is compressible, spontaneous, phasic, competent and demonstrates normal competent and demonstrates normal augmentation. augmentation. POP V is compressible, spontaneous, phasic, POP V is compressible, spontaneous, phasic, competent and demonstrates normal competent and demonstrates normal augmentation. augmentation. T/P Trunk is compressible. T/P Trunk is compressible. PTV is compressible. PTV is compressible. RT PerV is compressible. LT PerV is compressible. SFJ is competent and measures .58 cm. SFJ is competent and measures .68 cm. ASV posterior mid calf is incompetent for SSV proximal calf is competent and greater than .5 seconds. ASV measures .18 measures .22 x .2 cm. x .19 cm. ASV proximal thigh is INCOMPETENT for greater GSV, SSV, and ASV are absent S/P EVLA. than 0.5 seconds and measures .34 x .31 cm. Procedure GSV and ASV prox calf are occluded S/P EVLA. Exam performed in department. The exam was diagnostic. VL/Venous Duplex US - Gume Extrem Interpretation Summary Deep veins of the lower extremities are bilaterally patent and compressible seg mentally. There is no evidence of deep vein thrombosis on either side. Valvular competence appears in tact within the proximal deep venous systems bilaterally. Sapheno-femoral junctions are bilater ally competent . The right great saphenous vein, small saphenous vein, and accessory saphenous vein are absent, consistent with a prior endovenous ablation procedure. The left great saphenous vein and accessory saphenous vein in the proximal calf are occluded, consistent with a prior endov enous ablation procedure. The accessory saphenous vein in the right mid-calf is incompetent. T he accessory saphenous vein in the left proximal thigh is incompetent. The left small saphen ous vein is patent and competent. Ordering Physician: Ethan Chun Performed By: Eliezer Cornelius RVT
== END ==
PROVIDERS: Visit Provider Surgery
DX: I83.12 Varicose veins of left lower extremity with inflammation (principal); I83.11 Varicose veins of right lower extremity with inflammation
CPT/HCPCS: 93970

== ENCOUNTER → 2021-01-31 14:00 | Outpatient (CLI) | payer OTHER, SELFPAY ==
--- NOTE | 2021-01-31 14:07 | RAD_ITS ---
STUDY: X-RAY - LUMBOSACRAL SPINE REASON FOR EXAM: Female, 41 years old. LOW BACK PAIN TECHNIQUE: 7 view(s) of the lumbosacral spine were obtained. COMPARISON: None FINDINGS: Normal lumbar lordosis. There is no substantial scoliosis. Grade 2 anterior listhesis of L5 on S1 with spondylolysis of the pars interarticularis. Normal vertebral bodies and endplates. Marked degree of disc space narrowing with subchondral sclerosis at the L5-S1 level. Normal bilateral sacral ala, sacroiliac joints, and visualized sacrum. Normal visualized soft tissue structures. RAD/L/S Spine Comp/w Bending Views IMPRESSION: Grade 2 anterior listhesis of L5 on S1 with spondylolysis of the pars interarticularis of the L5 vertebrae. Disc space narrowing with subchondral sclerosis at the L5-S1 level. Electronically Signed: Marek Thompson MD at 14:26 EST , Service support ,
== END ==
PROVIDERS: Referring Provider Nurse Practitioner Family; Visit Provider Nurse Practitioner Family
DX: M54.50 Low back pain, unspecified (principal)
CPT/HCPCS: 72114

== ENCOUNTER 2021-04-04 16:30 | Outpatient (RCR) | payer OTHER, SELFPAY ==
--- NOTE | 2021-02-08 08:45 | HP.PTEVAL ---
Patient's Visit Information CHARLIE BROOKS is a 41 year old F referred to Physical Therapy by JAXSON Maritn with a diagnosis of General LBP. Date of Evaluation: 02/07/21 Physical Therapist: Som Zacarias DPT - Visit Plan Frequency: 2x /Week Duration: 6 Weeks Plan: Strengthen core muscles, consider use of TENS for pain relief. Pt prefers not to lay prone due to increased pain. - Subjective Pt presents to Physical Therapy with LBP that has been present for the last 10 years. 10 years ago, she experienced an episode where she was unable to walk for a period of time, and states she is fearful that will happen again. Pt reports she has been prescribed naproxen for pain, but tries not to take it unless pain is unbearable. Pt states that she has been experiencing severe pain when standing for prolonged periods of time or if sitting for too long. 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 She states during her job she often has to assist individuals sitting up, and she has found a way to compensate so she can complete this without putting too much stress on her back. Also at work she states if she sits too long it can causes her left leg to fall asleep. Pt reports she cannot lay on her stomach or her back will lock up. Within the last month she notices sensitivity to touch on her low back. Denies numbness and tingling, but states she experiences shooting pains. Patient states she is unable to sleep well, and only will sleep for about 1 hour at a time and ultimately only totaling about 4-5 hours per night. Patient would like to decrease pain. - Pain Back Pain Intensity (Out of 10): 6 Pain Intensity Range: 4, 10 - Objective ROM: limited side bending R due to pain , limited R rotation due to pain, WNL L side bending, flexion, and extension (painful). STRENGTH: Right: HIP:IR 4+, ER 4+ flexors 4 Knee extensors 5, flexors 5 ;Left: HIP:IR 4+, ER 4+ flexors 4 Knee extensors 5, flexors 5; unable to test abdominals due to pain. PALPATION: TTP along L1-L5 spinous processes, erector spinae tightness. REFLEXES: Achilles and patellar WNL. Sensation: WNL bilateral LE - Balance/Special Test Scores Oswestry Low Back Score: 14 - Goals Goal 1:: Pt will be independent with HEP Goal Time Frame: 2-4 Weeks Goal 2:: Pt will increase LE mm grades to 5/5 strength to improve stability. Goal Time Frame: 2-4 Weeks Goal 3:: STG: Pt will decrease back pain to having no > 5/10 during the day to improve ability to function at work. Goal Time Frame: 2-4 Weeks Goal 4:: LTG: Pt will be able to sleep through the night without waking up from pain to improve QOL. Goal Time Frame: 6-8 Weeks - Rehabilitation Potential Physical Therapy Diagnosis: back pain, core weakness Rehabilitation Potential: Fair - Anticipated Interventions Patient/Client Instruction: Educate patient on: Condition, Plan of Care, Risk Factors, Benefits of Fitness Program For the Purpose of:: To decrease pain, To increase ROM, To improve ability to perform ADL's, To increase tolerance to activity/condition/position, To improve ability of physical actions for home/community/work/leisure, To decrease soft tissue restriction, To reduce risk of recurrence, To improve self management Therapeutic Exercise to Include: Strength training, Body mechanics, Postural training, Flexibilty training, Relaxation training, Passive ROM, Active ROM, Dynamic Lumbar Stabilization For the Purpose of:: To decrease pain, To increase ROM, To improve nutrient delivery to tissue, To improve muscle performance and motor function, To improve ability to perform ADL's, To increase tolerance to activity/condition/position, To improve ability of physical actions for home/community/work/leisure, To increase flexibility/ROM, To reduce risk of recurrence, To improve health and function, To foster healthy habits, To prevent re-injury, To improve ability to perform tasks related to life management Manual Therapy Techniques to Include: Massage, Soft tissue mobilization For the Purpose of:: To decrease pain, To increase ROM, To decrease soft tissue restriction, To increase flexibility/ROM TENS: Yes Thermo therapy (hot pack): Yes Ultrasound (thermal/non thermal): Yes For the Purpose of:: To decrease pain, To decrease soft tissue restriction, To increase flexibility/ROM Thank you for the opportunity to evaluate your patient. For Medicare and Medicare HMO plans, please review the plan of care and approve it. It will need to be FAXED BACK to us at [phone] for Medicare purposes. For Medicare only, by signing this I certify the plan of care. Please let me know if there are questions or concerns regarding this plan of care. Physician Signature: Date:
--- NOTE | 2021-03-19 10:22 | HP.PTREVAL_ITS ---
Anéglica Brothers, ZULMA-C, It has been my pleasure to treat CHARLIE BROOKS over the last 7 visits for General LBP. Please see the progress note below for an update on the physical therapy plan of care! Subjective: Pt reports she is doing better than she was on Friday. She states that she has been doing HEP. Pt is trying to scheduled for an MRI for her low back. Objective/Function: STRENGTH: Right hip: flexion 4/5, IR 4+, ER 4+ , knee extension 5/5, flexion 5/5; left hip flexion 4/5 IR 4+, ER 4+ , knee extension 5/5, flexion 5/5. Pt continues to make some improvements with strength, I would like patient to begin more exercises at home, she was given HEP to focus on core strength to supplement PT. Plan Plan: Pt. goes by Kayce. Strengthen core muscles, consider use of TENS for pain relief. Pt prefers not to lay prone due to increased pain. Balance/Gait/Functional tests - Balance/Special Test Scores Oswestry Low Back Score: 14 Goals Goal 1:: Pt will be independent with HEP Goal Time Frame: 2-4 Weeks Goal Progress: Progressing Goal 2:: Pt will increase LE mm grades to 5/5 strength to improve stability. Goal Time Frame: 2-4 Weeks Goal 3:: STG: Pt will decrease back pain to having no > 5/10 during the day to improve ability to function at work. Goal Time Frame: 2-4 Weeks Goal Progress: Progressing Goal 4:: LTG: Pt will be able to sleep through the night without waking up from pain to improve QOL. Goal Time Frame: 6-8 Weeks Goal Progress: Progressing Anticipated Interventions Patient/Client Instruction: Educate patient on: Condition, Plan of Care, Risk Factors, Benefits of Fitness Program For the Purpose of:: To decrease pain, To increase ROM, To improve ability to perform ADL's, To increase tolerance to activity/condition/position, To improve ability of physical actions for home/community/work/leisure, To decrease soft tissue restriction, To reduce risk of recurrence, To improve self management Therapeutic Exercise to Include: Strength training, Body mechanics, Postural training, Flexibilty training, Relaxation training, Passive ROM, Active ROM, Dynamic Lumbar Stabilization For the Purpose of:: To decrease pain, To increase ROM, To improve nutrient delivery to tissue, To improve muscle performance and motor function, To improve ability to perform ADL's, To increase tolerance to activity/condition/position, To improve ability of physical actions for home/community/work/leisure, To increase flexibility/ROM, To reduce risk of recurrence, To improve health and function, To foster healthy habits, To prevent re-injury, To improve ability to perform tasks related to life management Manual Therapy Techniques to Include: Massage, Soft tissue mobilization For the Purpose of:: To decrease pain, To increase ROM, To decrease soft tissue restriction, To increase flexibility/ROM TENS: Yes Thermo therapy (hot pack): Yes Ultrasound (thermal/non thermal): Yes For the Purpose of:: To decrease pain, To decrease soft tissue restriction, To increase flexibility/ROM Please do not hesitate to contact me at [phone] by phone or Fax: if you have questions or concerns regarding this new plan of care! Sincerely, Som Zacarias DPT
--- NOTE | 2021-04-04 17:17 | HP.PTREVAL_ITS ---
Angélica Brothers, ZULMA-C, It has been my pleasure to treat CHARLIE BROOKS over the last 10 visits for General LBP. Please see the progress note below for an update on the physical therapy plan of care! Subjective: Pt. reports being about the same overall. She reports she is going to have an MRI on Friday and sees the physician to following week. Pt. reports being 25% better. She is having to work a lot right now with people out at work. Pt. reports not being able to be as consistent with exercises at home due to lack of time. Objective/Function: Pt. reports overall about the same. She is having some relief, but not much. She is scheduled to have an MRI later this week then follow up with physician the following week. At this point in time, I would like her to return to physician then potentially back to PT pending follow up results. She is progressing with core stability, but slowly. Plan Plan: Pt. to have MRI then follow up with physician then potential back to PT if deemed appropriate. Balance/Gait/Functional tests - Balance/Special Test Scores Oswestry Low Back Score: 14 Goals Goal 1:: Pt will be independent with HEP Goal Time Frame: 2-4 Weeks Goal Progress: Progressing Goal 2:: Pt will increase LE mm grades to 5/5 strength to improve stability. Goal Time Frame: 2-4 Weeks Goal Progress: Progressing Goal 3:: STG: Pt will decrease back pain to having no > 5/10 during the day to improve ability to function at work. Goal Time Frame: 2-4 Weeks Goal Progress: Progressing Goal 4:: LTG: Pt will be able to sleep through the night without waking up from pain to improve QOL. Goal Time Frame: 6-8 Weeks Goal Progress: Progressing Anticipated Interventions Patient/Client Instruction: Educate patient on: Condition, Plan of Care, Risk Factors, Benefits of Fitness Program For the Purpose of:: To decrease pain, To increase ROM, To improve ability to perform ADL's, To increase tolerance to activity/condition/position, To improve ability of physical actions for home/community/work/leisure, To decrease soft tissue restriction, To reduce risk of recurrence, To improve self management Therapeutic Exercise to Include: Strength training, Body mechanics, Postural training, Flexibilty training, Relaxation training, Passive ROM, Active ROM, Dynamic Lumbar Stabilization For the Purpose of:: To decrease pain, To increase ROM, To improve nutrient delivery to tissue, To improve muscle performance and motor function, To improve ability to perform ADL's, To increase tolerance to activity/condition/position, To improve ability of physical actions for home/community/work/leisure, To increase flexibility/ROM, To reduce risk of recurrence, To improve health and function, To foster healthy habits, To prevent re-injury, To improve ability to perform tasks related to life management Manual Therapy Techniques to Include: Massage, Soft tissue mobilization For the Purpose of:: To decrease pain, To increase ROM, To decrease soft tissue restriction, To increase flexibility/ROM TENS: Yes Thermo therapy (hot pack): Yes Ultrasound (thermal/non thermal): Yes For the Purpose of:: To decrease pain, To decrease soft tissue restriction, To increase flexibility/ROM Please do not hesitate to contact me at [phone] by phone or Fax: if you have questions or concerns regarding this new plan of care! Sincerely, Som Zacarias DPT
== END 2021-04-04 19:00 | disposition home or self-care (01) ==
LOC: PT 16:30
PROVIDERS: Referring Provider Nurse Practitioner Family; Visit Provider Nurse Practitioner Family
DX: M54.50 Low back pain, unspecified (principal)
CPT/HCPCS: 97014; 97110; 97161; 97164; G0283

== ENCOUNTER 2021-04-07 08:44 | Outpatient (CLI) | payer OTHER, SELFPAY ==
--- NOTE | 2021-04-07 09:20 | MRI_ITS ---
HISTORY: Low back pain. TECHNIQUE: Multiplanar and multisequence MR images of the lumbar spine. IV Contrast dosage and agent: None. # of images incl. paperwork: 147. COMPARISON: XR 01/31/2021. FINDINGS: VERTEBRAE: Vertebral body heights maintained. Degenerative bone marrow endplate changes at L5-S1. Bilateral L5 spondylolysis. ALIGNMENT: 11 mm anterolisthesis of L5-S1 similar to prior. CONUS: Normal morphology and position at T12-L1. SOFT TISSUES: 7 mm left T12-L1 perineural cysts. 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 Mild posterior subcutaneous edema. No paraspinal fluid collection. INTERVERTEBRAL DISCS: L1-2, L2-3:No significant posterior disc herniation, central canal stenosis, or foraminal narrowing. L3-4, L4-5: Very mild posterior disc bulge osteophyte complexes with facet arthropathy resulting in minimal narrowing of thecal sac and bilateral foramina. L5-S1: Mild posterior disc bulge osteophyte complex with uncovered pseudodisc and facet arthropathy resulting in minimal narrowing of the thecal sac and mild bilateral foraminal narrowing with abutment of the bilateral L5 nerve roots. 8mm left synovial cyst posterior to the facet. MRI/Spine Lumbar (Routine) IMPRESSION: L5 spondylolysis with grade 2 spondylolisthesis. Mild degenerative disc disease without significant spinal canal stenosis. at 1232 Reported and signed by: Shantel Hernandez MD Electronically Signed: Shantel Hernandez MD at 12:31 EST Tel , Service support ,
== END 2021-04-07 23:59 | disposition short-term general hospital (02) ==
PROVIDERS: Referring Provider Nurse Practitioner Family; Visit Provider Nurse Practitioner Family
DX: M54.50 Low back pain, unspecified (principal); R93.7 Abnormal findings on diagnostic imaging of other parts of musculoskeletal system
CPT/HCPCS: 72148

== ENCOUNTER → 2021-11-01 | Outpatient (CLI) | payer OTHER, SELFPAY ==
--- NOTE | 2021-11-01 10:49 | BI_ITS ---
MAMMOGRAPHY - BILATERAL SCREENING REASON FOR EXAM: Female, 41 years old. Routine annual screening examination. PERTINENT HISTORY: Non-contributory. TECHNIQUE: Digital bilateral breast porsche (3D mammographic acquisition) in the CC and MLO projections. 2-D mediolateral oblique (MLO) and craniocaudad (CC) views of both breasts were obtained. CAD: Full Field Digital Mammography with Computer Added Detection was performed. COMPARISON: Comparison is made with prior study dated 11/02/2020 and 08/05/2019. FINDINGS: Breast Composition: The breasts are heterogeneously dense, which may obscure small masses. There are no dominant masses or suspicious calcifications. Stable small benign appearing bilateral axillary lymph nodes. No other significant abnormalities are identified. There has been no significant change since the prior study. BI/SCRN MAMM (CAD)W/PORSCHE BILAT IMPRESSION: Stable bilateral screening mammogram. Yearly follow-up mammogram recommended. (A) ASSESSMENT CATEGORY: BIRADS Category 2: Benign. A letter regarding these results will be sent to the patient by the facility within 30 days. Approximately 10% of breast cancers are not detected by mammography. A normal mammogram should not delay biopsy of a clinically suspicious abnormality. [id number] Electronically Signed: Marek Thompson MD at 11:59 EDT ,
== END | disposition home or self-care (01) ==
LOC: OPBI 10:48
PROVIDERS: Visit Provider Nurse Practitioner Women's Health
DX: Z12.31 Encounter for screening mammogram for malignant neoplasm of breast (principal)
CPT/HCPCS: 77063; 77067

== ENCOUNTER 2022-01-25 12:00 | Outpatient (RCR) | payer OTHER, SELFPAY ==
--- NOTE | 2022-01-01 12:46 | HP.PTEVAL_ITS ---
Patient's Visit Information CHARLIE BROOKS is a 41 year old F referred to Physical Therapy by JAXSON Gonzalez with a diagnosis of 12/12/21 L/ sFusion discectomy anterior technique. Date of Evaluation: 01/01/22 Physical Therapist: Sim Rodriguez, DPT, OCS, CSCS - Visit Plan Frequency: 3x /Week Duration: 4-6 Weeks Plan: 3x/week for 4-6 weeks for. 1. lumbar isometrics and funcitonal strength with LB isometrics. 2. Slow progression of ROM Lumbar spine. scar massage and rollout and stretch L HS with sciatic nerve stretch. ice as needed. Wean Lumbar support. 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 Had lots of LBP and weird skin sensations. had L5 S1 fusion 12/12/21 and discectomy. Pain level this past week is 5/10 in LB over the incision and anterior incision. L leg some sciatica posterior if sits too long. Is in brace all the time up and around. Not sleeping or showering. Not doing any exercises. Walking for daily activity but is on feet often. Goes somewhere 1x/day and it wears her out. Sleep is not great, wakes up every couple hours to switch positions. takes a while to get back to sleep. Dressing I and showers and bathroom I. Slow. Does dishes at the sink. Avoiding bending and twisting. Does squat if needs something low but has grabber. 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 Hobbies: Enjoys riding motorcycles but no time soon. - Pain LBP Pain Intensity (Out of 10): 1 Pain Intensity Range: 1, 8 Comment: end of day worse after sitting. - Objective Brace on and donned and doffed I today. sits up tall and moves hesitantly but transfer to bed and chair I without bending at back. Squats to floor easily with stragiht back. Walks I, steps reciprocal I with one rail, spasms when elevating L LE. + L SLR and very tight L HS vs R. LB AROM ext max deficits, , flexion NT, SB mod deficits. Rotation max deficits. Hip and knee aROM WFL B. reflexes 2/3 patella and achilles. sensation LE WNL to gross lgiht touch. heel and toe raises I. Strength knees and ankles 4/5 and hips 3+ B. some pain in back with l hip flexion. - Balance/Special Test Scores Oswestry Low Back Score: 19 - Goals Goal 1:: Pain 0-2/10 at all times and manageable Goal Time Frame: 4-6 Weeks Goal 2:: Pt able to walk, climb steps without pain or spasms. Goal Time Frame: 4-6 Weeks Goal 3:: Pt feel 90% back to normal and ready to RTW Goal Time Frame: 4-6 Weeks Goal 4:: Oswestry score6 or less Goal Time Frame: 4-6 Weeks Goal 5:: I appropriate HEP to manage condition Goal Time Frame: 4-6 Weeks Goal 6:: sleep without waking at night Goal Time Frame: 4-6 Weeks - Rehabilitation Potential Physical Therapy Diagnosis: LBP and then fusion with functional limtiations. Rehabilitation Potential: Good - Anticipated Interventions Patient/Client Instruction: Educate patient on: Condition, Plan of Care For the Purpose of:: To decrease pain, To increase ROM, To improve muscle performance and motor function, To increase tolerance to activity/condition/position, To improve gait and locomotor functions Therapeutic Exercise to Include: Strength training, Postural training, Flexibilty training, Passive ROM, Active ROM For the Purpose of:: To decrease pain, To increase ROM, To improve nutrient delivery to tissue, To improve muscle performance and motor function, To increase tolerance to activity/condition/position, To improve ability of physical actions for home/community/work/leisure Manual Therapy Techniques to Include: Mobilization, Passive ROM, Soft tissue mobilization For the Purpose of:: To decrease pain, To increase ROM, To improve muscle performance and motor function Cryotherapy (ice pack, ice massage): Yes For the Purpose of:: To decrease pain, To increase ROM Thank you for the opportunity to evaluate your patient. For Medicare and Medicare HMO plans, please review the plan of care and approve it. It will need to be FAXED BACK to us at [phone] for Medicare purposes. For Medicare only, by signing this I certify the plan of care. Please let me know if there are questions or concerns regarding this plan of care. Physician Signature: Date:
--- NOTE | 2022-01-25 12:46 | HP.PTDCSUM ---
It has been my pleasure to treat CHARLIE BROOKS referred by Soraya Landry NP-C, with the diagnosis of 12/12/21 L/S Fusion discectomy anterior technique for a total of 11 visit(s). Discharge Date: 01/25/22 Please see the following information for a summary of their discharge status. Subjective: Coming from her workout. I am good. Has some limitations. Avoids twisting, but will squat Not wearing brace unless working heavy. Pain is just at incision 2/10 much of time. Feels tight. Avoids vaccuming with big sweeper but will use small one. Moving it would be tough. Sleeping OK, has some moments now and then but body pillow helps, sleeping on back. Shooting for back to work 02/04, will see doctor office 01/31 for RTW talk and restrictions. Walking at home and doing her activities normal around home. Does some gentle strengthening at home. Doing bugs and stretches at home. LBP Pain Intensity (Out of 10): Unrated % Improvement: 80 Objective/Function: ROM LB is full with just some tightness mid back at end range of flexion. walking is normal. Stairs are reciprocal without rail. Pt moving well and feeling good. Wants to be done with PT and get back to work after doctor visit. Goal 1:: Pain 0-2/10 at all times and manageable Goal Progress: Goal Met Goal 2:: Pt able to walk, climb steps without pain or spasms. Goal Progress: Goal Met Goal 3:: Pt feel 90% back to normal and ready to RTW Goal Progress: 80% Goal 4:: Oswestry score6 or less Goal Progress: Goal Met Goal 5:: I appropriate HEP to manage condition Goal Progress: Progressing Goal 6:: sleep without waking at night Goal Progress: normal Plan: d/c If there are questions or concerns regarding this patient's physical therapy, please feel free to call me at [phone]. Thank you for the referral of this patient. Sincerely, Sim Rodriguez, DPT, OCS, CSCS Balance/Gait/Functional tests - Balance/Special Test Scores Oswestry Low Back Score: 6
== END 2022-01-25 15:13 | disposition home or self-care (01) ==
LOC: PT 12:00
PROVIDERS: Referring Provider Nurse Practitioner Acute Care; Visit Provider Nurse Practitioner Acute Care
DX: Z98.1 Arthrodesis status (principal)
CPT/HCPCS: 97110; 97140; 97161; 97164

== ENCOUNTER → 2022-04-23 | Outpatient (CLI) | payer OTHER, SELFPAY ==
--- NOTE | 2022-04-23 16:29 | RAD_ITS ---
EXAM: XR LUMBOSACRAL SPINE, 4 OR 5 VIEWS CLINICAL INDICATION: low back pain TECHNIQUE: Frontal, lateral and bilateral oblique views of the lumbar spine. This report was created using [employer] report generation technology. COMPARISON: 01/31/2021 FINDINGS: VERTEBRAE: Unremarkable. Preserved vertebral body height. No fracture. No spondylolisthesis. Preservation of the normal lumbar lordosis. No significant facet arthropathy. DISC SPACES: There are bilateral pedicle screws from posterior fusion at L5-S1. There is also intervertebral disc prosthesis at L5-S1. Alignment is anatomic. GASTROINTESTINAL TRACT: Unremarkable as visualized. Included bowel gas pattern is non-obstructive. RAD/L/S Spine Min 4 Views IMPRESSION: Orthopedic hardware at L5-S1. Alignment is anatomic. No acute osseous abnormalities are identified. Electronically Signed: Sebastian Gomez MD at 16:53 EST ,
== END | disposition home or self-care (01) ==
LOC: MTRAD 16:29
PROVIDERS: Referring Provider Physician Assistant Surgical; Visit Provider Physician Assistant Surgical
DX: S39.012A Strain of muscle, fascia and tendon of lower back, initial encounter (principal); X58.XXXA Exposure to other specified factors, initial encounter
CPT/HCPCS: 72110

== ENCOUNTER → 2022-06-07 | Outpatient (CLI) | payer OTHER, SELFPAY ==
--- NOTE | 2022-06-07 13:40 | RAD_ITS ---
EXAM: XR LUMBOSACRAL SPINE, 4 OR 5 VIEWS CLINICAL INDICATION: POSTOP TECHNIQUE: Frontal, lateral and bilateral oblique views of the lumbar spine. This report was created using [employer] report generation technology. COMPARISON: XR Lumbosacral Spine dated 04/23/2022 FINDINGS: VERTEBRAE: Disc implant at the L5-S1 level again noted with anterior posterior fixation. The grade 2 listhesis of L5 on S1 is unchanged. DISC SPACES: Mild disc space narrowing noted throughout the remainder of the lumbar spine. GASTROINTESTINAL TRACT: Normal bowel gas pattern. RAD/L/S Spine Min 4 Views IMPRESSION: No interval change. Stable L5-S1 listhesis Electronically Signed: Ministerio Funk MD at 15:04 EDT ,
== END | disposition home or self-care (01) ==
LOC: RAD 13:33
PROVIDERS: Referring Provider Orthopaedic Surgery; Visit Provider Orthopaedic Surgery
DX: Z98.890 Other specified postprocedural states (principal)
CPT/HCPCS: 72110

== ENCOUNTER → 2022-06-20 | Outpatient (CLI) | payer OTHER, SELFPAY ==
--- NOTE | 2022-06-20 07:25 | CT_ITS ---
STUDY: CT LUMBAR SPINE WITHOUT CONTRAST REASON FOR EXAM: Female, 42 years old. Prior fusion at the L5-S1 level. RADIATION DOSAGE (If Supplied By Facility): CTDIvol = ( 13.98 ) mGy, DLP = ( 479.60 ) mGycm TECHNIQUE: The patient was scanned in a multi detector CT scanner. High resolution transaxial imaging was performed. Images were obtained from L1 to S1 level. Sagittal and coronal images were reconstructed. Individualized dose optimization techniques were used for this CT. COMPARISON: None FINDINGS: There is straightening of the normal lumbar lordosis. There is no substantial scoliosis. Normal vertebrae of the lumbar spine. L1-2: Normal endplates. Normal disc height and morphology. Normal bilateral facet joints. Normal central canal and bilateral lateral recesses. Normal bilateral intervertebral neural foramina. L2-3: Normal endplates. Normal disc height and morphology. Normal bilateral facet joints. Normal central canal and bilateral lateral recesses. Normal bilateral intervertebral neural foramina. L3-4: Normal endplates. Normal disc height and morphology. Normal bilateral facet joints. Normal central canal and bilateral lateral recesses. Normal bilateral intervertebral neural foramina. L4-5: Minimal degree of disc space narrowing. L5-S1: The patient is status post antibiotic or sclerotic fixation at the L5-S1 level with disc prostheses. There is also evidence of anterior fixation. Grade 1 anterior listhesis of L5 on S1. There is a lucency surrounding the trajectory of the left interpedicular screw at the S1 level. Normal visualized paraspinous soft tissue structures. CT/Spine Lumbar without Contrast IMPRESSION: Status post interpedicular screw and shayy fixation at the L5-S1 level with a prosthetic disc placement. Anterior screw fixation is also seen. Grade 1 anterolisthesis of L5 on S1. Lucent tract seen along the left sided screw entering the S1 vertebrae. Electronically Signed: Marek Thompson MD at 13:52 EDT ,
== END | disposition home or self-care (01) ==
LOC: CT 07:24
PROVIDERS: Visit Provider Orthopaedic Surgery
DX: Z98.1 Arthrodesis status (principal)
CPT/HCPCS: 72131

== ENCOUNTER → 2022-09-05 | Outpatient (CLI) | payer OTHER, SELFPAY ==
[2022-09-05 10:13] LABS: Bacteria 0 SEEN /hpf (None Seen); Mucous, Urine 0 SEEN /hpf (<or=2+); Red Blood Cells-Urine 0 SEEN /hpf (0-5)
[2022-09-05 11:01] LABS: Hematocrit 42.9 % (37-47); Hemoglobin 13.5 g/dL (12.0-15.0); Mean Corp Hgb Conc 31.5 g/dL (32-36); Mean Corpuscular Hgb 29.2 pg (27.0-32.0); Mean Corpuscular Volume 92.7 fL (81-99); Mean Platelet Vol. 9.4 fl (6.2-12.0); Platelet Count 313 K/mm3 (150-450); RBC Distribution Width CV 13.6 % (11.6-14.6); RBC Distribution Width SD 46.4 fl (35.1-43.9); Red Blood Count 4.63 M/mm3 (4.2-5.4); White Blood Count 6.6 K/mm3 (4.4-11.0)
[2022-09-05 12:08] LABS: AST(SGOT) 13 U/L (15-37); Alanine Aminotransfer ALT/SGPT 21 U/L (13-56); Albumin, Serum 4.1 g/dL (3.2-5.0); Alkaline Phosphatase 62 U/L (45-117); Anion Gap 6 (5-15); BUN 10 mg/dL (7-18); Chloride 107 mmol/L (98-107); Creatinine, Serum 0.77 mg/dL (0.55-1.02); EST Glomerular Filtration Rate 87 mL/min (>60); Est Glom Filt Rate - Afr Amer 105 mL/min (>60); Glucose 89 mg/dL (74-106); Potassium 4.1 mmol/L (3.5-5.1); Protein, Total 8.1 g/dL (6.4-8.2); Sodium Level 137 mmol/L (136-145)
[2022-09-05 14:10] LABS: Color, Urine Yellow (Yellow); Glucose, Dipstick Normal (Normal); Ketone-Dipstick Negative (Negative); Leukocyte Esterase-Dipstick Negative /ul (Negative); Nitrite-Dipstick Negative (Negative); Occult Blood-Urine 150 /ul (Negative); Protein-Dipstick 15 mg/dl (Negative); Specific Gravity, Urine 1.025 (1.002-1.030); Urine Bilirubin Dipstick Negative (Negative); Urine Clarity Clear (Clear); Urine Urobilinogen Normal (Normal)
[2022-09-05 14:46] LABS: Squamous Epithelial Cells - UA 0-5 SEEN /hpf (5-10); White Blood Cells 0-5 SEEN /hpf (0-5)
== END | disposition home or self-care (01) ==
LOC: LAB 10:09
DX: R10.13 Epigastric pain (principal)
CPT/HCPCS: 36415; 80053; 81001; 85027

== ENCOUNTER → 2022-09-12 | Outpatient (CLI) | payer OTHER, SELFPAY ==
[2022-09-14 13:07] LABS: Anti-Centromere B Ab <0.2 AI (0.0-0.9); Anti-Chromatin <0.2 AI (0.0-0.9); Anti-Jo <0.2 AI (0.0-0.9); Anti-Scleroderma-70 AB <0.2 AI (0.0-0.9); Anti-dsDNA Ab 1 IU/mL (0-9); RNP Ab 0.3 AI (0.0-0.9); SJOGREN'S Anti-SS-A test < 0.2 AI (0.0-0.9); SJOGREN'S Anti-SS-B test < 0.2 AI (0.0-0.9); Smith Ab <0.2 AI (0.0-0.9)
[2022-09-16 15:08] LABS: Cytoplasmic Ab (C-ANCA) <1:20 titer (Neg:<1:20); Endomysial Antibody IgA Negative (Negative); Immunoglobulin A 218 mg/dL (87-352); Perinuclear Ab (P-ANCA) <1:20 titer (Neg:<1:20); t-Transglutaminase IgA <2 U/mL (0-3)
== END | disposition home or self-care (01) ==
LOC: PAVLAB 14:30
PROVIDERS: Referring Provider Nurse Practitioner Adult Health; Visit Provider Nurse Practitioner Adult Health
DX: K59.00 Constipation, unspecified (principal); K21.9 Gastro-esophageal reflux disease without esophagitis
CPT/HCPCS: 36415; 82784; 83516; 86225; 86235; 86255; 86256

== ENCOUNTER → 2022-09-25 | Outpatient (CLI) | payer OTHER, SELFPAY ==
--- NOTE | 2022-09-25 08:12 | RAD_ITS ---
STUDY: X-RAY - ESOPHAGUS (BARIUM SWALLOW) WITH FLUOROSCOPY REASON FOR EXAM: Female, 42 years old. Dysphagia TECHNIQUE: 14 view(s) of the esophagus were obtained following swallowing of barium. FLUOROSCOPY TIME (if supplied): (36 seconds) minutes/seconds COMPARISON: None. FINDINGS: There is no demonstrated esophageal foreign body. There is no demonstrated stricture or mucosal abnormality. There is a small hiatal hernia of the fundus of the stomach. Small weblike narrowing is seen at the gastroesophageal junction. The patient ingested a 12 mm tablet of barium. There was transient holdup of the tablet at the gastroesophageal junction. Normal visualized aortic arch and descending thoracic aorta. Normal visualized pulmonary parenchyma. Normal visualized osseous structures of the thorax. RAD/Esophagus Dual Contrast IMPRESSION: Small sliding without gastroesophageal reflux. Small weblike narrowing at the gastroesophageal junction with temporary holdup of the ingested 12 mm tablet of barium. Electronically Signed: Marek Thompson MD at 13:52 EDT ,
== END | disposition home or self-care (01) ==
LOC: RAD 08:00
PROVIDERS: Referring Provider Nurse Practitioner Adult Health; Visit Provider Nurse Practitioner Adult Health
DX: R13.10 Dysphagia, unspecified (principal)
CPT/HCPCS: 74221

== ENCOUNTER → 2022-09-27 | Outpatient (CLI) | payer OTHER, SELFPAY ==
--- NOTE | 2022-09-27 12:50 | NM_ITS ---
INDICATION: early satiety, reflux, non diabetic, bloating, belching EXAMINATION: NUCLEAR MEDICINE GASTRIC EMPTYING - NM Gastric Emptying Study (solid, liquid or both) TECHNIQUE: Radiopharmaceutical (solid portion of the exam): 1.0 mCi of Tc99m Sulfur Colloid mixed with oat meal. Oral administration. Imagin minutes COMPARISON: CTA 12/10/2017 FINDINGS: Gastric emptying time with solids: T1/2 measures 38.6 minutes, within normal limits. NM/Gastric Emptying Study IMPRESSION: Normal gastric emptying time with solids. Electronically Signed: Gaston Porras (Brooks), at 14:44 EDT ,
== END | disposition home or self-care (01) ==
LOC: NM 12:49
PROVIDERS: Referring Provider Nurse Practitioner Adult Health; Visit Provider Nurse Practitioner Adult Health
DX: K21.9 Gastro-esophageal reflux disease without esophagitis (principal); R68.81 Early satiety
CPT/HCPCS: 78264; A9541

== ENCOUNTER → 2022-12-11 | Outpatient (CLI) | payer OTHER, SELFPAY ==
--- NOTE | 2022-12-11 08:14 | BI_ITS ---
MAMMOGRAPHY - BILATERAL SCREENING REASON FOR EXAM: Female, 42 years old. Routine annual screening examination. PERTINENT HISTORY: Non-contributory. TECHNIQUE: Digital bilateral breast porsche (3D mammographic acquisition) in the CC and MLO projections. 2-D mediolateral oblique (MLO) and craniocaudad (CC) views of both breasts were obtained. CAD: Full Field Digital Mammography with Computer Added Detection was performed. COMPARISON: Comparison is made with prior study November 01, 2021 and November 02, 2020. FINDINGS: Breast Composition: The breasts are heterogeneously dense, which may obscure small masses. There is a 1.3 cm x 1.2 cm well-defined nodule in the slightly upper lateral aspect of the right breast. There is also evidence of a 6.6 mm nodule in the medial inferior aspect of the right breast. Correlation with ultrasound is recommended. No other significant abnormalities are identified. BI/SCRN MAMM (CAD)W/PORSCHE BILAT IMPRESSION: Well-defined nodules in the right breast as described. Correlation with ultrasound is recommended. ASSESSMENT CATEGORY: BIRADS Category 0: Incomplete. Need additional imaging evaluation. A letter regarding these results will be sent to the patient by the facility within 30 days. Approximately 10% of breast cancers are not detected by mammography. A normal mammogram should not delay biopsy of a clinically suspicious abnormality. [id number] Electronically Signed: Marek Thompson MD at 9:48 EDT ,
--- NOTE | 2022-12-11 14:31 | US_ITS ---
STUDY: ULTRASOUND BREAST - RIGHT REASON FOR EXAM: Female, 42 years old. Abnormal screening mammogram. TECHNIQUE: Axial and longitudinal images of the RIGHT breast were performed with a high resolution ultrasound transducer. # OF IMAGES: 30 COMPARISON: Comparison is made with prior mammogram dated December 11, 2022. FINDINGS: RIGHT Breast: There is a 1 cm x 1 cm x 0.6 cm cyst at the 10:00 position of the breast at 6 cm from the nipple. There is a 7 mm x 7 mm x 8 mm septated cyst at the 10:00 position breast at 3 cm from the nipple. There is also evidence of a 8mm by 8 mm x 4 mm cyst at the 4:00 position of the breast at 4 cm from the nipple. US/Breast Limited Unilateral IMPRESSION: 3 small cysts are seen. Routine mammographic follow-up recommended. ASSESSMENT CATEGORY: BIRADS Category 2: Benign. A letter regarding these results will be sent to the patient by the facility within 30 days. Electronically Signed: Marek Thompson MD at 13:41 EDT ,
== END | disposition home or self-care (01) ==
PROVIDERS: Referring Provider Nurse Practitioner Women's Health; Visit Provider Nurse Practitioner Women's Health
DX: Z12.31 Encounter for screening mammogram for malignant neoplasm of breast (principal); R92.8 Other abnormal and inconclusive findings on diagnostic imaging of breast
CPT/HCPCS: 76642; 77063; 77067

== ENCOUNTER 2022-12-26 05:56 | Day surgery (SDC) | payer OTHER, SELFPAY ==
[2022-12-26] VITALS (7 sets, daily range): BP systolic 95–108; BP diastolic 69–76; PULSE 72–89; RESP 16; TEMP 36.6–37.2; O2SAT 97–100; BMI 25.6
[2022-12-26 06:25] LABS: Internal QC Validated? YES +Cl - CLEAR BKGD; Pregnancy, Urine Negative Negative
[2022-12-26] MEDS: Lactated Ringers 1,000 ML 15 ML IV (06:28)
--- NOTE | 2022-12-26 06:55 | PCM.HP.BLA ---
History and Physical Date of Admission: 12/26/22 42 F who presents to the office today for constipation, heartburn, bloating, gassy, dysphagia. Long hx of bowel issues following 4th degree tear when delivering baby at age 17, then had sphinteroplasty which helped somewhat. Bowels have been problematic, since prefers to hold bowels in order to use restroom at home due to issues with sphincter being weak. Can then intermittently get diarrhea which is an issue to due incontinence. So she frequently has related abd discomfort, bloating and gas. Used to take Physicians Choice probiotic which helped her bowels but then got nausea/acne/abd pain when the brand she was on changed their formula. Now taking Culturelle pre- and probiotic, started it a month ago, helps keep her more regular. Feels like food sticks at distal esophagus, very painful, feels like twisting, can occur daily, worse with bread, getting worse over time. Did have this symptom when EGD was done in 2020. She does get acid refluxing all the way up. Can taste food she ate a day prior. Gets full quickly, but then hungry again soon. Has tried omeprazole, esomeprazole, had adverse effects. Wants to manage w/o PPI, especially considering hx of back surgeries/hardware. Had adverse effects from famotidine. 2020 EGD: LA Grade A reflux, small hiatal hernia; bxs neg H pylori, mild gastritis, neg Moreno's No prior colonoscopy ROS Const Constitutional: Positive for fatigue and weight change ENT ENT: No difficulty swallowing Gastro GI: Positive for abdominal pain, bloating, constipation, diarrhea, heartburn, excessive flatus and nausea/dyspepsia; No belching, change in bowel habits, change in stool character, coffee ground emesis, cramping, difficulty swallowing, feeling full early, incontinent of stools, Vomiting blood/hematemesis, Blood in stool, loose stools, Black,tarry stools, pain with swallowing, vomiting or other Musc Musculoskeletal: Positive for back pain and stiffness; No joint pain Skin Skin: No yellowing of the eye or itchy eyes Psych Psychiatric: No anxiety and No depression Endo Endocrine: Positive for fatigue and weight change Aller/Imm Allergy/Immunologic: No itchy eyes Rebel/Lymp Hematologic/Lymphatic: No easy bleeding or easy bruising Exam Const General: cooperative, healthy appearing and comfortable Orientation: alert, awake and oriented x3 Quality Reporting Tobacco Screening ([facility] 138) Smoking Status: Former smoker Assessment and Plan Assessment and Plan (1) Constipation: Status: Chronic Plan: 42 yr old female with chronic constipation which began after she had 4th degree tear in at age 17, then rectal sphincterplasty attempted in 2004; as a result she doesn't have good sphincter control, therefore holds bowels and becomes constipated, but very problematic if she has diarrhea since she will have incontinence. In more recent years she also has esophageal dysphagia and perhaps spasms, acid reflux, small hiatal hernia, early satiety. She had EGD in 2020 that showed reflux esophagitis. Will get esophagram, consider esophageal manometry, will get gastric emptying study. Will test for celiac, other autoimmune disorders. Try Fiber Choice tablets to help the bowels move better. Consider digestive enzymes with meals. (2) Dysphagia: Status: Chronic Plan: see above (3) GERD (gastroesophageal reflux disease): Status: Chronic Plan: see above (4) Early satiety: Status: Acute Plan: see above Orders: Orders Esophagus Dual Contrast Today R13.10 - Dysphagia, unspecified MÓNICA Comprehensive Panel Today K21.9 - Gastro-esophageal reflux disease without esophagitis, K59.00 - Constipation, unspecified ANCA Today K21.9 - Gastro-esophageal reflux disease without esophagitis, K59.00 - Constipation, unspecified Celiac Disease Profile Today K21.9 - Gastro-esophageal reflux disease without esophagitis, K59.00 - Constipation, unspecified Gastric Emptying Study Today K21.9 - Gastro-esophageal reflux disease without esophagitis, R68.81 - Early satiety Medications: Discontinued esomeprazole magnesium (Nexium) Discontinued Reason: Pt no longer taking 40 mg PO DAILY 30 days 30 caps 4RF L.acidoph, paracasei,B. lactis Discontinued Reason: Pt no longer taking 1 ea PO DAILY supplement [id number]-zs-tyc 7-7-1.5 gram (Angel (with collagen)) Discontinued Reason: Pt no longer taking 1 ea PO DAILY I have examined the patient and the H&P has been reviewed. There are no clinical changes since date of exam.
--- NOTE | 2022-12-26 07:00 | EGD_PTH ---
PATIENT: CHARLIE ROMERO LOC: EN U#:[id number] AGE/SX: 42/F ROOM: RE12/26/[address]: Dr. Octavio Rodríguez DO : 1980 BED: DIS: 12/26/2022 SPEC #: [id number] RECD: 12/26/22 09:56 STATUS: ARMOND SANCHEZ #: [id number] KRISTOFER: 12/26/22 07:[address]: Octavio Rodríguez DEPT: SURGICAL PATHOLOGY RECD BY: Serena Calderon Tissues: A - Esophagus, NOS B - Duodenum, NOS Procedures: Special Stain Group II Surgery Specimen Level IV Alcian Blue/PAS (control) HEADER OPERATION: EGD, biopsy, dilation PRE-OP DIAGNOSIS: Constipation, dysphagia, GERD, early satiety TISSUE SUBMITTED: A - Distal esophagus biopsy, B - Duodenum biopsy MICROSCOPIC DIAGNOSIS A. Distal esophagus, biopsy: Fragments of gastroesophageal mucosa with moderate chronic inflammation. Intestinal metaplasia (goblet cell metaplasia) not identified. See comment. B. Duodenum, biopsy: Fragments of duodenal mucosa, no pathologic diagnosis. SIOBHAN:za 12/27/2022 COMMENT A. Alcian blue/PAS stain with matched control is used in the evaluation of the specimen. MICROSCOPIC DESCRIPTION Slides are reviewed. GROSS DESCRIPTION A - Received in fixative is one container labeled with the patient's name and designated distal esophagus biopsy. The specimen consists of multiple irregular fragments of light bansal soft tissue that in aggregate measure 1.5 x 0.5 x 0.1 cm. The specimen is totally submitted in one cassette. B - Received in fixative is one container labeled with the patient's name and designated duodenum biopsy. The specimen consists of two irregular fragments of light bansal soft tissue that in aggregate measure 0.6 x 0.3 x 0.1 cm. The specimen is totally submitted in one cassette. / SIOBHAN:za 12/26/2022 TC:3 CPT: 10627 x2, 95170
--- NOTE | 2022-12-26 07:20 | OP.EGD_ITS ---
Patient Name: Laisha Barkley Procedure Date: 12/26/2022 6:57 AM Date of : 1980 Age: 42 Procedure: Upper GI endoscopy Indications: Dysphagia Providers: Octavio Rodríguez DO Referring MD: Octavio Rodríguez DO Medicines: Monitored Anesthesia Care Patient Profile: This is a 42 year old female. Refer to note in patient chart for documentation of history and physical. Patient has symptoms of chronic dysphagia and dysphagia with both liquids and solids. Complications: No immediate complications. Procedure: Pre-Anesthesia Assessment: - Prior to the procedure, a History and Physical was performed, and patient medications and allergies were reviewed. The patient is competent. The risks and benefits of the procedure and the sedation options and risks were discussed with the patient. All questions were answered and informed consent was obtained. Patient identification and proposed procedure were verified by the physician in the pre-procedure area. Mental Status Examination: alert and oriented. Respiratory Examination: clear to auscultation. CV Examination: normal. Prophylactic Antibiotics: The patient does not require prophylactic antibiotics. Prior Anticoagulants: The patient has taken no anticoagulant or antiplatelet agents. After reviewing the risks and benefits, the patient was deemed in satisfactory condition to undergo the procedure. The anesthesia plan was to use monitored anesthesia care (MAC). Immediately prior to administration of medications, the patient was re-assessed for adequacy to receive sedatives. The heart rate, respiratory rate, oxygen saturations, blood pressure, adequacy of pulmonary ventilation, and response to care were monitored throughout the procedure. The physical status of the patient was re-assessed after the procedure. After obtaining informed consent, the endoscope was passed under direct vision. Throughout the procedure, the patient's blood pressure, pulse, and oxygen saturations were monitored continuously. The gastroscope was introduced through the mouth, and advanced to the second part of duodenum. The upper GI endoscopy was accomplished without difficulty. The patient tolerated the procedure well. Scope In: 7:04:29 AM Scope Out: 7:09:55 AM Total Procedure Duration Time 0 hours 5 minutes 26 seconds Findings: The middle third of the esophagus was moderately tortuous. Abnormal motility was noted in the lower third of the esophagus. The cricopharyngeus was normal. There is spasticity of the esophageal body. The distal esophagus/lower esophageal sphincter is spastic, but gives up passage to the endoscope. Tertiary peristaltic waves are noted. Mucosal changes including ringed esophagus were found in the lower third of the esophagus. Biopsies were obtained from the proximal and distal esophagus with cold forceps for histology of suspected eosinophilic esophagitis. Verification of patient identification for the specimen was done. A guidewire was placed and the scope was withdrawn. Dilation was performed with a Savary dilator with no resistance at 51 Fr. The dilation site was examined and showed moderate improvement in luminal narrowing. Estimated blood loss was minimal. A small hiatal hernia was present. No other significant abnormalities were identified in a careful examination of the stomach. Patchy mildly erythematous mucosa without active bleeding and with no stigmata of bleeding was found in the duodenal bulb. Biopsies were taken with a cold forceps for histology. Verification of patient identification for the specimen was done. Estimated blood loss was minimal. Impression: - Tortuous esophagus. - Abnormal esophageal motility, suspicious for achalasia. - Esophageal mucosal changes consistent with eosinophilic esophagitis. Dilated. - Small hiatal hernia. - Erythematous duodenopathy. Biopsied. - Biopsies were taken with a cold forceps for evaluation of eosinophilic esophagitis. Recommendation: - Discharge patient to home. - Resume previous diet. - Use Protonix (pantoprazole) 20 mg PO BID for 8 weeks. - Continue present medications. Procedure Code(s): --- Professional --- 34659, Esophagogastroduodenoscopy, flexible, transoral; with insertion of guide wire followed by passage of dilator(s) through esophagus over guide wire 64484, 59,51, Esophagogastroduodenoscopy, flexible, transoral; with biopsy, single or multiple CPT copyright 2021 [employer]. All rights reserved. The codes documented in this report are preliminary and upon equipment service lead review may be revised to meet current compliance requirements. Octavio Rodríguez DO 12/26/2022 7:19:52 AM This report has been signed electronically. Number of Addenda: 0 Note Initiated On: 12/26/2022 6:57 AM
--- NOTE | 2022-12-26 07:20 | OP.CCLET_ITS ---
12/26/2022 Lady Neves Re : Upper GI endoscopy procedure for Laisha Barkley Dear Pura This procedure was performed on December. My impressions and recommendations are as follows: Impressions : - Tortuous esophagus. - Abnormal esophageal motility, suspicious for achalasia. - Esophageal mucosal changes consistent with eosinophilic esophagitis. Dilated. - Small hiatal hernia. - Erythematous duodenopathy. Biopsied. - Biopsies were taken with a cold forceps for evaluation of eosinophilic esophagitis. Recommendations : - Discharge patient to home. - Resume previous diet. - Use Protonix (pantoprazole) 20 mg PO BID for 8 weeks. - Continue present medications. My findings are described in the full procedure note, which is enclosed. If I can be of further assistance, please feel free to contact me at . Sincerely, Octavio Rodríguez, 12/26/2022 7:19:52 AM This report has been signed electronically.
== END 2022-12-26 08:12 | disposition home or self-care (01) ==
LOC: EN 05:57 → AC 05:59
PROVIDERS: Anesthesiology; Visit Provider Internal Medicine Gastroenterology
PROC: 0DJ08ZZ Inspection of Upper Intestinal Tract, Via Natural or Artificial Opening Endoscopic (ICD-10-PCS; CPT 43235; principal; 2022-12-26 06:55)
DX: K44.9 Diaphragmatic hernia without obstruction or gangrene (principal); R13.10 Dysphagia, unspecified; K59.00 Constipation, unspecified; K21.9 Gastro-esophageal reflux disease without esophagitis; K22.89 Other specified disease of esophagus; K31.89 Other diseases of stomach and duodenum; Z79.899 Other long term (current) drug therapy; Z87.891 Personal history of nicotine dependence
CPT/HCPCS: 43248; 43239; 81025; 88305; 88313; J7120; C1769; J2405

== ENCOUNTER → 2023-01-28 | Outpatient (CLI) | payer OTHER, SELFPAY ==
[2023-02-04 08:11] LABS: HPV APTIMA, High Risk Negative (Negative)
== END | disposition home or self-care (01) ==
PROVIDERS: Visit Provider Nurse Practitioner Women's Health
DX: Z12.4 Encounter for screening for malignant neoplasm of cervix (principal)
CPT/HCPCS: 87624; 88175; G0145

== ENCOUNTER → 2023-05-06 | Outpatient (CLI) | payer OTHER, SELFPAY ==
--- NOTE | 2023-05-06 10:30 | US_ITS ---
STUDY: ABDOMINAL ULTRASOUND - RIGHT UPPER QUADRANT REASON FOR VISIT: Female, 43 years old Epigastric pain TECHNIQUE: Ultrasound evaluation of the right upper quadrant was performed with real-time and static grijalva-scale imaging. TECHNICAL QUALITY: Adequate. COMPARISON: Comparison is made with prior CT scan demonstrated pelvis dated December 10, 2017. FINDINGS: Liver: The liver measures 15.3 cm. There is normal echogenicity of the liver. The bile ducts are within normal limits. There is hepatic color flow. The direction of portal flow is hepatopetal. There is no demonstrated mass lesion. Gallbladder: Normal distended gallbladder. The gallbladder wall measures 2 mm. There is a negative sonographic Evans''s sign. There is no pericholecystic fluid. There are multiple echogenic structures within the gallbladder, consistent with multiple gallstones. Common Bile Duct (C.B.D.): The common bile duct measures 8 mm. Pancreas: Normal size of the head, body and tail of the pancreas. There is normal echogenicity of the pancreas. There is no demonstrated pancreatic mass or cyst. Right Kidney: Normal size of the right kidney. The right kidney measures 11.2 cm x 4.9 cm x 4.3 cm. Normal renal cortex. The right cortex measures 1.0 cm. There is no demonstrated renal mass or cyst. There is no right hydronephrosis. US/Abdomen Limited IMPRESSION: Multiple gallstones. Prominent common bile duct. Electronically Signed: Marek Thompson MD at 13:30 EST ,
== END | disposition home or self-care (01) ==
LOC: US 10:30
PROVIDERS: Referring Provider Internal Medicine Gastroenterology; Visit Provider Internal Medicine Gastroenterology
DX: R10.13 Epigastric pain (principal)
CPT/HCPCS: 76705

== ENCOUNTER → 2023-05-23 | Outpatient (CLI) | payer OTHER, SELFPAY ==
--- NOTE | 2023-05-23 09:26 | NM_ITS ---
CLINICAL: 43-year-old female with history of cholelithiasis and epigastric discomfort. RADIONUCLIDE HEPATOBILIARY SCINTIGRAPHY COMPARISON: None available FINDINGS: Following the intravenous administration of 6.0 mCi of 99m Tc Mebrofenin, hepatobiliary images reveal: 1. Relatively prompt and homogeneous radiopharmaceutical concentration is noted by a normal sized liver. No parenchymal defects are identified. 2. Gallbladder activity is identified at 30 minutes post radiopharmaceutical administration. 3. Small intestinal tract is observed at 30 minutes following tracer injection. 4. Washout of the radiopharmaceutical by the hepatic parenchyma appears qualitatively normal. Cholecystokinin (0.02 ug/kg) was administered intravenously over a 30-minute period. The post CCK gallbladder ejection fraction calculated at 20 minutes following Cholecystokinin administration was noted to be < 5 % (normal greater than 35%). NM/Hepatobilliary Img w/Pharm Int IMPRESSION: 1. ABNORMAL 99m Tc Mebrofenin hepatobiliary imaging examination with Cholecystokinin. A. A gallbladder ejection fraction calculated to be less than 35% following the administration of Cholecystokinin is consistent with the presence of functional hepatobiliary disease (gallbladder and/or sphincter of Oddi dyskinesia) and/or organic hepatobiliary disease (chronic acalculous cholecystitis and/or cystic duct syndrome) in patients with intermediate to high pretest probabilities of hepatobiliary illness. (Hardik Dudley et al, Journal of Nuclear Medicine 32:1695, 1991). Electronically Signed: Edd García DO at 23:24 EST ,
== END | disposition home or self-care (01) ==
PROVIDERS: Referring Provider Internal Medicine Gastroenterology; Visit Provider Internal Medicine Gastroenterology
DX: R10.13 Epigastric pain (principal)
CPT/HCPCS: 78227; A9537; J2805

== ENCOUNTER → 2023-06-02 | Outpatient (CLI) | payer OTHER, SELFPAY ==
[2023-06-02 11:56] LABS: Absolute Lymphocyte Count 2.92 X10^3/uL (0.83-4.51); Basophil# 0.04 X10^3/uL; Basophil% 0.5 % (0-1); Eosinophil# 0.07 X10^3/uL; Eosinophils% 0.8 % (0-5); Hematocrit 46.4 % (37-47); Hemoglobin 14.9 g/dL (12.0-15.0); Lymphocyte # 2.92 X10^3/ul (0.83-4.51); Lymphocyte % 33.6 % (19-41); Mean Corp Hgb Conc 32.1 g/dL (32-36); Mean Corpuscular Hgb 29.2 pg (27.0-32.0); Mean Platelet Vol. 9.3 fl (6.2-12.0); Monocyte% 6.9 % (0-10); NRBC Flagged by Analyzer 0 % (0-5); Neutrophil # 5.01 X10^3/uL (2.7-7.7); Neutrophil % 57.7 % (47-70); Platelet Count 333 K/mm3 (150-450); RBC Distribution Width CV 13.3 % (11.6-14.6); RBC Distribution Width SD 44.7 fl (35.1-43.9); White Blood Count 8.7 K/mm3 (4.4-11.0)
[2023-06-02 12:13] LABS: ALB/GLOB Ratio 1.1 RATIO (0.9-2.4); AST(SGOT) 16 U/L (15-37); Alanine Aminotransfer ALT/SGPT 17 U/L (13-56); Albumin, Serum 4.6 g/dL (3.2-5.0); Alkaline Phosphatase 52 U/L (45-117); Amylase 59 U/L (25-115); Anion Gap 5 (5-15); BUN 10 mg/dL (7-18); BUN/Creat Ratio 11.2 RATIO (10-20); Calcium,Total 9.9 mg/dL (8.5-10.1); Chloride 105 mmol/L (98-107); Creatinine, Serum 0.89 mg/dL (0.55-1.02); EST Glomerular Filtration Rate 73 mL/min (>60); Est Glom Filt Rate - Afr Amer 89 mL/min (>60); Globulin 4.1 g/dL (2.2-4.2); Glucose 92 mg/dL (74-106); Lipase 36 U/L (13-75); Protein, Total 8.7 g/dL (6.4-8.2); Sodium Level 136 mmol/L (136-145)
== END | disposition home or self-care (01) ==
LOC: PAVLAB 11:24
PROVIDERS: PCP Family Medicine; Referring Provider Surgery; Visit Provider Surgery
DX: K80.10 Calculus of gallbladder with chronic cholecystitis without obstruction (principal)
CPT/HCPCS: 36415; 80053; 82150; 83690; 85025

== ENCOUNTER 2023-07-14 05:50 | Day surgery (SDC) | payer OTHER, SELFPAY ==
[2023-07-14] VITALS (11 sets, daily range): BP systolic 87–126; BP diastolic 58–69; PULSE 50–75; RESP 14–16; TEMP 36.2–37.6; O2SAT 94–100; BMI 23.5
[2023-07-14 06:16] LABS: Internal QC Validated? YES +Cl - CLEAR BKGD; Pregnancy, Urine Negative Negative
--- NOTE | 2023-07-14 06:21 | PCM.HP.BLA ---
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 Required: No Is patient in pain?: No Allergies latex Allergy (Severe, Verified 05/30/23 14:11) Othernitrofurantoin [From Macrobid] Allergy (Intermediate, Verified 05/30/23 14:11) Nauseaesomeprazole [From Nexium] Adverse Reaction (Intermediate, Verified 05/30/23 14:11) Other Medications multivitamin 1 tab PO DAILY 10/24/20 [History Confirmed 05/30/23] Lactobacillus acidophilus 250 million cell capsule (Probiotic Acidophilus) 500 mmu cells PO DAILY 12/23/22 [History Confirmed 05/30/23] fiber 2 tab PO DAILY 12/23/22 [History Confirmed 05/30/23] pantoprazole 20 mg tablet,delayed release 20 mg PO Q12H #60 tabs 12/26/22 [Rx Confirmed 05/30/23] linaclotide 72 mcg capsule (Linzess) 72 mcg PO QAM #30 caps 01/20/23 [Rx Confirmed 05/30/23] [facility] Medical History Alcohol use Back pain Epigastric pain Former smoker Gastric reflux GERD (gastroesophageal reflux disease) Heartburn History of diverticulitis History of pain when walking History of renal disease Loose, teeth Shortness of breath on exertion vericose vein surgery Wears glasses Surgical History 4th degree tear in delivery delivered H/O dilation and curettage H/O spinal fusion History of back surgery History of esophagogastroduodenoscopy (EGD) History of hysteroscopy Hx of rectal sphincterotomy Hx of vein stripping sphincterplasty Family History Mother Diabetes Cancer renal cell carsinoma Social History Smoking Status: Former smoker alcohol intake: current details: social substance use type: does not use caffeine: Yes frequency: 1-2 times per week seatbelt use: always do you feel safe at home: Yes 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 Octavio Rodríguez for surgical consultation regarding abnormal gallbladder function and a written compromise surgical consult and recommendations will return to him. Dr. Rodríguez has been evaluating her for esophageal dysphagia.. Barium swallow September 25, 2022 suggest small hiatal hernia with a small weblike narrowing at the EG junction. An upper endoscopy that Dr. Rodríguez performed on December 26, 2022 showed a tortuous mid esophagus and what was felt to be abnormal lower esophageal motility. A small hiatal hernia was identified. She does have reflux disease. She was H. pylori negative. Dr. Rodríguez is suspecting esophageal motility disorder. He may consider esophageal manometry in the future pending her progress. She also has concerns about constipation. She was newly prescribed Linzess. A gastric emptying study of September 27, 2022 was within normal limits. A abdominal ultrasound right upper quadrant test obtained May 06, 2023 suggested a normally distended gallbladder with a normal wall. No pericholecystic fluid. There were multiple gallstones identified however. Common bile duct enlarged at 8 mm. I HIDA scan was obtained on May 23, 2023. The small intestine was seen at 30 minutes. Ejection fraction was noted to be less than 5%. This examination was felt to be abnormal. As of September 05, 2022 total bilirubin was 0.5 with an AST of 13 and ALT of 21 and alkaline phosphatase of 62 with a total protein of 8.1 and albumin of 4.1 and a globulin of 4. Her white blood cell count was 6.6 with a hemoglobin 13.5 and hematocrit of 42.9 and platelet count of 313,000. Patient actually for a while has been having episodes of epigastric right upper quadrant pain with radiation to her back. 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 She had had weight gain after back surgery that had multiple complications. She then has had weight loss. She states she possibly had 1 episode of jaundice when the weather was nice result she looks somewhat yellow. She had a previous anterior approach for her back surgery. He has had no upper abdominal procedures. The patient notes that over the past couple days she has had severe epigastric pain. No jaundice. No dark-colored urine. This moment she is relatively comfortable. She does note that she has persistent aching in the epigastric area however. She otherwise states that her health has been stable. ROS General General: Yes weight change and fatigue; No appetite, colon cancer, breast cancer or weakness HEENT HEENT: No difficulty swallowing, eye injury, eye surgery, swollen glands or hoarseness Endo Endocrine: No thyroid disease, diabetes mellitus, thyroid cancer, Hair loss, heat intolerance or cold intolerance Skin Skin: No rash or changing moles [facility] Musculoskeletal: Yes back problems; No arthritis, rheumatoid arthritis, gout or joint pain Cardio Cardiovascular: No murmur, pacemaker, heart disease, atrial fibrillation, high blood pressure, heart attack, heart stent, palpitations, shortness of breat with exertion or chest pain Psych Psychiatric: No depression, anxiety or hearing voices Resp Respiratory: No shortness of breath, No sleep apnea, No cough, No COPD, No asthma, No emphysema and No wheezing Gastro Gastrointestinal: Yes abdominal pain, Yes nausea or vomiting, No diarrhea, Yes constipation, No blood in stool, Yes acid reflux, No hemorrhoids, No ulcers, Yes gallbladder problem and No black,tarry stools Rebel Hematologic: No blood thinners, No blood disorders, No bleeding, No anemia and No blood clots Neuro Neurologic: No weakness Exam Const General: cooperative, healthy appearing, comfortable and no acute distress Nutritional Appearance: average body habitus [facility] Head: normal to inspection Eyes General: appearance normal, both eyes and all related structures Neck Neck: normal visual inspection Resp Effort & Inspection: normal respiratory effort Auscultation: clear to auscultation bilaterally Cardio Rate: regular rate Rhythm: regular rhythm GI Inspection: normal to inspection Palpation: soft and no hepatosplenomegaly Other: Slightly tender to deep palpation right upper quadrant. No guarding or rebound. No mass. [facility] Cervical Spine: normal cervical lordosis Skin General: no rashes or lesions noted Neuro General: patient alert, patient awake and patient oriented x3 Extrem General: normal to inspection and no calf tenderness Psych Appearance: grossly normal Assessment and Plan Assessment and Plan (1) GERD (gastroesophageal reflux disease): Status: Chronic Qualifiers: Esophagitis bleeding: without hemorrhage Esophagitis presence: with esophagitis Qualified Code(s): K21.00 - Gastro-esophageal reflux disease with esophagitis, without bleeding (2) Cholelithiasis with chronic cholecystitis: Status: Chronic Qualifiers: Biliary obstruction: without biliary obstruction Cholelithiasis location: gallbladder Qualified Code(s): K80.10 - Calculus of gallbladder with chronic cholecystitis without obstruction Plan: 43-year-old female with findings very much consistent with chronic cholecystitis cholelithiasis. It is of note that her common bile duct is dilated to 8 mm. Preoperatively I will want to obtain a CMP amylase and lipase in addition to routine lab work. I do propose for her laparoscopic cholecystectomy with cholangiograms. If the anatomy is feasible and if she has only a solitary small common bile duct stone if suggested to her that I would then pursue a laparoscopic common bile duct exploration. If a large stone or multiple stones are identified then I would defer to Dr. Rodríguez for an ERCP. Of course of the common bile duct is clear of stones then she will not require any of this advanced work. 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 She is aware that she will need to take at least some time off and I suggested minimum of 2 weeks. Perhaps light duty subsequent to that. She has had an opportunity to ask and have questions answered. She is aware of the technique, benefit, risk, alternatives. We will schedule and try to expedite her care. I appreciate the opportunity of assisting with the surgical care. Copy: Dr. Octavio Titus M.D., F.A.C.S. She was reviewed today. She notes the recent episodes of pain. We rediscussed the plans for cholangiography and potential laparoscopic common bile duct expiration if indicated. She is very much aware that she could require a postoperative ERCP I would request Dr. Octavio Rodríguez if available. She has had an opportunity to ask questions answered. We will proceed as noted. The remainder of her history and physical is constant. Pepe Titus M.D., F.A.C.S.
[2023-07-14] MEDS: Lactated Ringers 1,000 ML 15 ML IV ×2 (06:35→09:22)
[2023-07-14] MEDS: Cefazolin 2 GM in 0.9% Normal Saline (100mL Bag) 100 ML IV (07:25)
--- NOTE | 2023-07-14 07:26 | EX.PCM.DISCH ---
Discharge Instructions Procedure General Surgery Diet Discharge Diet: Light diet - advance as tolerated (if you have questions about your diet instructions, please talk to you doctor.) Activity Discharge Activity: May Not Drive (for 3-5 days or while taking narcotic pain medicine.) May shower in (days): 1 Lifting Restrictions: 10 pounds Dressing / Incision Call your doctor if your incision/area has: Continuous Slow Oozing, Sudden Increased Bleeding, Increased Pain/ Swelling, Increased Redness and Foul Smelling Discharge Call your doctor if you observe: Fever of 101 or Higher Suture Line Care: Avoid Pulling/Pushing and Avoid Pinching/Bending Additional Dressing/Incision Instructions:: Change or remove dressing in 4 days. Leave steri-strips in place for 1 week. Follow Up Care Please Follow Up With: Pepe Titus MD When: Call [phone] to make an appointment to be seen in about 10 days. Test Results: Test results from this visit will be discussed in further detail at your follow-up appointment, if applicable. Discharge Plan Admission Attending Provider: Pepe Titus Primary Care Provider: SONIA PEREZ Discharge Orders/Prescriptions Prescriptions: No Action multivitamin Tablet 1 tab PO DAILY Linzess 72 mcg capsule 72 mcg PO QAM Qty: 30 3RF Probiotic Acidophilus 250 million cell capsule 500 mmu cells PO DAILY pantoprazole 20 mg tablet,delayed release (DR/EC) 20 mg PO Q12H Qty: 60 3RF psyllium husk [Daily Fiber] 0.4 gram capsule 0.8 g PO DAILY Referrals / Follow Up: Reed Herrera MD [Non-Staff] - Disposition Disposition (needs filled in before D/C Order can be placed): Home, Self Care
--- NOTE | 2023-07-14 07:30 | GALL_PTH ---
PATIENT: CHARLIE ROMERO LOC: [facility] U#:[id number] AGE/SX: 43/F ROOM: RE07/14/[address]: Dr. Pepe Titus MD : 1980 BED: DIS: 07/14/2023 SPEC #: [id number] RECD: 07/14/23 10:01 STATUS: ARMOND SANCHEZ #: [id number] KRISTOFER: 07/14/23 07:[address]: Pepe Titus DEPT: SURGICAL PATHOLOGY RECD BY: Serena Calderon Tissues: Gallbladder, NOS Procedures: Surgery Specimen Level III HEADER OPERATION: Laparoscopic, Cholecystectomy with IOC PRE-OP DIAGNOSIS: Cholelithiasis with chronic cholecystitis TISSUE SUBMITTED: Gallbladder MICROSCOPIC DIAGNOSIS Gallbladder, cholecystectomy: Chronic cholecystitis and cholelithiasis. SIOBHAN/ 07/15/2023 MICROSCOPIC DESCRIPTION Slides are reviewed. GROSS DESCRIPTION Received is one container labeled with the patient's name and designated gallbladder. The specimen consists of a gallbladder measuring 7.0 cm in length and up to 3.5 cm in diameter. The external surface is pink-bansal, smooth and glistening for the most part. Focally it is granular, hemorrhagic and contains cautery artifact. The gallbladder contains green-yellow mucoid bile and multiple mulberry yellow stones measuring in aggregate 3.0 x 2.5 x 0.5 cm and 0.1 to 0.4 cm in greatest dimension. The mucosa is bile-stained and without any mass lesions. The gallbladder wall measures up to 0.1cm in thickness. Thermostat Machine Tender sections from the gallbladder and the cystic duct are submitted in one cassette. / SJ:mr 07/14/2023 TC:3 CPT: 25067
--- NOTE | 2023-07-14 07:48 | RAD_ITS ---
STUDY: INTRAOPERATIVE CHOLANGIOGRAM. REASON FOR EXAM: Female, 43 years old. PAIN FLUOROSCOPY TIME (if supplied): ( 67 seconds ) minutes/seconds. 94.79 mGy. TECHNIQUE: An intraoperative cholangiogram was performed by the surgeon. Imaging was submitted. COMPARISON: None. FINDINGS: Several runs were obtained. On the initial run, there is mild dilatation of the common bile duct with decrease flow into the duodenum. Following glucagon administration, there is free flow of contrast into the duodenum. There is evidence of a diverticulum overlying the distal portion of the common bile duct and medial aspect of the second portion of the duodenum. The diverticula most likely arises from the second portion of the duodenum. RAD/Cholangiogram/ O R,Initial IMPRESSION: Diverticula in seen overlying the medial aspect of the second portion of the duodenum and distal portion of the common bile duct. This most likely represents a duodenal diverticulum. No intraluminal filling defect is seen. Electronically Signed: Marek Thompson MD at 8:58 EDT ,
--- NOTE | 2023-07-14 08:31 | PCM.OPRPT ---
Report of Operation Date of Procedure: 07/14/23 Pre-Operative Diagnosis: Chronic cholecystitis cholelithiasis Post-Operative Diagnosis: Same Surgery/Procedure Performed:: Laparoscopic ostectomy with cholangiograms Description of Surgical Findings:: Timeout informed consent was obtained. 43-year-old female was taken to the operating placed supine on the table underwent general endotracheal intubation anesthesia. The abdomen sterilely prepped draped. Ancef 2 g were given intravenously preoperatively. 0.5% Marcaine was used as a local anesthetic. Throughout the procedure a total of 30 cc was used. Skin sites were Starla size. A infraumbilical incision was created holding sutures of 0 Vicryl placed the fascia was sharply incised hemostats were used to grab the peritoneum which was opened no evidence of any bowel 12 mm trocar unarmed was inserted the abdomen was insufflated with CO2 to a pressure of 10 mmHg pressure 10 and laparoscope inserted no evidence of trocar injuries there is no evidence of any adhesions even in the low abdomen at the previous operative sites. Under direct visualization 5 mm trocars were placed in the epigastric mid abdomen right upper quadrant. The gallbladder had a few adhesions of omentum to it which were carefully bluntly dissected free and were needed hemostasis obtained with Hem-o-sara clips. The infundibular area of the gallbladder was bluntly dissected free where needed hemostasis obtained with hemoclips the critical view was obtained with the cystic artery and cystic duct. The cystic artery was clipped proximally and distally with hemoclips prior to transecting it. Hemoclip was placed on the cystic duct incision made in the cystic duct and through a 14-gauge Angiocath in the right upper quadrant of angiogram catheter was inserted. Fluoroscopically controlled cholangiograms were obtained. This demonstrated gross common bile duct dilatation but no intrahepatic ductal dilatation and no dilatation of the cystic duct. I thought that there were several very small distal stones. The patient received 10 mg of glucagon. After 3 minutes of circulating time I then used 30 cc of saline is flush. I repeated the cholangiogram now demonstrating free flow into the small bowel and some small amount of retrograde flow into the pancreatic duct. The gross diameter of the common bile duct appeared slightly less. I no longer demonstrated the distal small filling defects. At this point my assumption was it was majority cleared. Angiogram catheter was removed and 2 hemoclips were placed on the cystic duct stump prior to transecting it. Additional Hem-o-sara clips were used at the gallbladder bed were needed. The gallbladder was removed from the liver using electrocautery. The right upper quadrant was irrigated and aspirated free. Some of the omental dissection was slightly oozy treated that with the fibula and the liver bed was nicely hemostatic. The gallbladder was placed in a retrieval bag that was exited the umbilicus. The was found to deflate through a antiviral valve. Trocars were removed. The fascia at the umbilicus proximal interrupted 0 Vicryl [id number] suture. Skin edges approximated with 4 Monocryl subdermal stitches. Steri-Strips Telfa OpSite dressings applied. Sponge and instrument and needle counts were reported to the surgeon to be correct. Specimens gallbladder. Drains none. Blood loss minimal. The patient was taken to the recovery area in satisfied condition without apparent complication. It is of note that during one of the skin incision closures a light handle condom dropped onto the field. This was reported to me that it did not affect the operative surgical site closing and it was treated with chlorhexidine and a sterile towel to block off that area. This was brought to the attention of the manager of exhibitions and collections as these appear to be a substitute right handle covers. Pepe Titus M.D., F.A.C.S. Surgeon: Pepe Titus Type of Anesthesia: General and Local Anesthesiologist: Sonali Branltey
[2023-07-14] MEDS: Bupivacaine Mpf 0.5% 30 ML VIAL (08:36)
== END 2023-07-14 11:17 | disposition home or self-care (01) ==
LOC: SDC 05:50 → AC 05:52
PROVIDERS: Anesthesiology; Referring Provider Surgery; Visit Provider Surgery
PROC: (CPT 47610; principal; 2023-07-14 07:10)
DX: K80.10 Calculus of gallbladder with chronic cholecystitis without obstruction (principal); K21.00 Gastro-esophageal reflux disease with esophagitis, without bleeding; Z87.891 Personal history of nicotine dependence
CPT/HCPCS: 47563; 00790; 74300; 76000; 81025; 88304; J7120; J1610; J2405

== ENCOUNTER → 2023-12-17 | Outpatient (CLI) | payer OTHER, SELFPAY ==
--- NOTE | 2023-12-17 09:44 | BI_ITS ---
MAMMOGRAPHY - BILATERAL SCREENING REASON FOR EXAM: Female, 43 years old. Routine annual screening examination. PERTINENT HISTORY: Non-contributory. TECHNIQUE: Digital bilateral breast porsche (3D mammographic acquisition) in the CC and MLO projections. 2-D mediolateral oblique (MLO) and craniocaudad (CC) views of both breasts were obtained. CAD: Full Field Digital Mammography with Computer Added Detection was performed. COMPARISON: Comparison is made with prior study December 11, 2022 and November 01, 2021. FINDINGS: Breast Composition: The breasts are extremely dense, which lowers the sensitivity of mammography. There is a 1.7 signed by 1.6 cm well-defined nodule in the slightly upper outer aspect of the right breast. This has increased slightly in size as compared to prior study. Stable 6.6 mm nodule medial inferior aspect of the right breast. These were demonstrated to be small cysts on prior sonogram. Stable small benign-appearing bilateral axillary lymph nodes. No other significant abnormalities are identified. There has been no significant change since the prior study. BI/SCRN MAMM (CAD)W/PORSCHE BILAT IMPRESSION: Stable bilateral screening mammogram. Yearly follow-up mammogram recommended. (A) ASSESSMENT CATEGORY: BIRADS Category 2: Benign. A letter regarding these results will be sent to the patient by the facility within 30 days. Approximately 10% of breast cancers are not detected by mammography. A normal mammogram should not delay biopsy of a clinically suspicious abnormality. [id number] Electronically Signed: Marek Thompson MD at 10:23 EDT ,
== END | disposition home or self-care (01) ==
PROVIDERS: Referring Provider Nurse Practitioner Women's Health; Visit Provider Nurse Practitioner Women's Health
DX: Z12.31 Encounter for screening mammogram for malignant neoplasm of breast (principal)
CPT/HCPCS: 77063; 77067

== ENCOUNTER → 2023-12-25 | Outpatient (CLI) | payer OTHER, SELFPAY ==
[2023-12-25 10:04] LABS: Bacteria 0 SEEN /hpf (None Seen); Mucous, Urine 0 SEEN /hpf (<or=2+); Red Blood Cells-Urine 0 SEEN /hpf (0-5); Squamous Epithelial Cells - UA 0 SEEN /hpf (5-10); White Blood Cells 0 SEEN /hpf (0-5)
[2023-12-25 10:17] LABS: Color, Urine Straw (Yellow); Glucose, Dipstick Normal (Normal); Ketone-Dipstick Negative (Negative); Leukocyte Esterase-Dipstick Negative /ul (Negative); Nitrite-Dipstick Negative (Negative); Occult Blood-Urine 50 /ul (Negative); Protein-Dipstick Negative (Negative); Specific Gravity, Urine 1.025 (1.002-1.030); Urine Bilirubin Dipstick Negative (Negative); Urine Clarity Clear (Clear); Urine Urobilinogen Normal (Normal)
[2023-12-25 10:27] LABS: Erythrocyte Sedimentation Rate 3 mm/hr (0-30)
--- NOTE | 2023-12-25 11:00 | RAD_ITS ---
EXAM: XR ABDOMEN, 1 VIEW CLINICAL INDICATION: constipation TECHNIQUE: Frontal supine view of the abdomen/pelvis. COMPARISON: 12/25/2023. FINDINGS: LOWER THORAX: No acute pathology. GASTROINTESTINAL TRACT: Moderate amount of fecal contents in the ascending colon, transverse colon and descending colon. Non-obstructive. No bowel or stomach distention. ORGANS: Unremarkable as visualized. No organomegaly. No abnormal calcifications. BONES/JOINTS: Metallic implant inside the L5-S1 disc space. SOFT TISSUES: No acute pathology. RAD/Abdomen Single View IMPRESSION: Mild constipation without significant change. Electronically Signed: Wilfred Bouregois MD at 16:05 EDT ,
[2023-12-25 11:38] LABS: CRP < 2.90 mg/L (0.0-3.0)
[2023-12-28 09:07] LABS: Beef <0.10 kU/L (Class 0); Chocolate <0.10 kU/L (Class 0); Codfish <0.10 kU/L (Class 0); Corn <0.10 kU/L (Class 0); Egg, Whole <0.10 kU/L (Class 0); Milk (Cow) <0.10 kU/L (Class 0); Mussels <0.10 kU/L (Class 0); Peanut <0.10 kU/L (Class 0); Pork <0.10 kU/L (Class 0); Salmon <0.10 kU/L (Class 0); Shrimp <0.10 kU/L (Class 0); Soybean <0.10 kU/L (Class 0); Tuna <0.10 kU/L (Class 0); Wheat <0.10 kU/L (Class 0)
[2023-12-29 09:08] LABS: Endomysial Antibody IgA Negative (Negative); Immunoglobulin A 226 mg/dL (87-352); t-Transglutaminase IgA <2 U/mL (0-3)
== END | disposition home or self-care (01) ==
PROVIDERS: PCP Family Medicine
DX: K59.01 Slow transit constipation (principal); K21.00 Gastro-esophageal reflux disease with esophagitis, without bleeding; R19.7 Diarrhea, unspecified
CPT/HCPCS: 36415; 74018; 81001; 82784; 83516; 85652; 86003; 86005; 86140; 86255

== ENCOUNTER → 2023-12-26 | Outpatient (CLI) | payer OTHER, SELFPAY ==
--- NOTE | 2023-12-26 08:51 | CT_ITS ---
STUDY: CT ABDOMEN AND PELVIS WITH CONTRAST REASON FOR EXAM: Female, 43 years old. Hematuria, family hx of RCC. Frequent urination. RADIATION DOSAGE (If Supplied By Facility): CTDIvol = ( 16.76 ) mGy, DLP = ( 749.37 ) mGycm TECHNIQUE: Transaxial images were obtained from the dome of the diaphragm to the symphysis pubis without oral contrast. IV 100mL Isovue-300 was administered. Sagittal and coronal images were reconstructed. Individualized dose optimization techniques were used for this CT. COMPARISON: Comparison is made with prior study dated December 10, 2017. FINDINGS: The visualized lung bases are unremarkable. The visualized portions of the heart are within normal limits. Normal liver. The patient is status post cholecystectomy. Normal spleen. Normal pancreas. Normal bilateral adrenal glands. Normal right kidney. There is a 7.4 mm cyst in the upper pole of the left kidney. 6 mm cyst in the posterior lateral aspect of the left kidney. There is a small hiatal hernia. Normal small intestine. There are scattered colonic diverticula consistent with diverticulosis. The appendix is visualized and appears normal. Normal abdominal aorta. Normal inferior vena cava. Normal retroperitoneum. Normal urinary bladder. Small follicles are seen in the right ovary. Normal abdominal wall. The patient is status post fusion at the L5-S1 level with prosthetic disc. 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 CT/Abdomen/Pelvis WITH Contrast IMPRESSION: Sigmoid diverticulosis. No evidence of diverticulitis. Status post cholecystectomy. Small left renal cysts. Electronically Signed: Marek Thompson MD at 10:39 EDT ,
[2023-12-30 02:08] LABS: Pancreatic Elastase, Fecal > 800 (>200)
[2023-12-30 20:08] LABS: Calprotectin, Stool 30 ug/g (0-120)
== END | disposition home or self-care (01) ==
LOC: LABSPEC 08:46 → CT 08:48
PROVIDERS: PCP Family Medicine
DX: K58.9 Irritable bowel syndrome, unspecified (principal); K21.00 Gastro-esophageal reflux disease with esophagitis, without bleeding; K59.01 Slow transit constipation; R31.9 Hematuria, unspecified; R19.7 Diarrhea, unspecified
CPT/HCPCS: 74177; 82653; 83630; 83993; Q9967

== ENCOUNTER → 2023-12-29 | Outpatient (CLI) | payer OTHER, SELFPAY ==
--- NOTE | 2023-12-29 07:35 | RAD_ITS ---
STUDY: X-RAY - ABDOMEN/PELVIS REASON FOR EXAM: Female, 43 years old. Abdominal pain and distention TECHNIQUE: Two AP supine views of the abdomen and pelvis. COMPARISON: None. FINDINGS: Normal visualized lung bases. There is an abundance of fecal material throughout the colon. There is no demonstrated free abdominal air. There are multiple Sitzmarkers from a bowel motility study, one is in the proximal transverse colon, one in the distal transverse colon the rest in the descending and sigmoid colon The visualized liver, spleen and kidneys are grossly normal in size and morphology. Normal soft tissue structures. Normal visualized osseous structures. RAD/Abdomen Single View IMPRESSION: No acute abnormalities, retained stool Electronically Signed: Milan Arnold MD at 8:18 EDT ,
== END | disposition home or self-care (01) ==
LOC: RAD 07:34
PROVIDERS: PCP Family Medicine
DX: K59.01 Slow transit constipation (principal)
CPT/HCPCS: 74018

== ENCOUNTER → 2023-12-31 | Outpatient (CLI) | payer OTHER, SELFPAY ==
--- NOTE | 2023-12-31 08:45 | RAD_ITS ---
STUDY: X-RAY - ABDOMEN/PELVIS REASON FOR EXAM: Female, 43 years old. Constipation TECHNIQUE: Two AP supine views of the abdomen and pelvis. COMPARISON: None. FINDINGS: Number of Sitzmarks markers has decreased since the previous study suggesting passage. There is an abundance of fecal material throughout the colon. There is no demonstrated free abdominal air. The visualized liver, spleen and kidneys are grossly normal in size and morphology. Normal soft tissue structures. Normal visualized osseous structures. RAD/Abdomen Single View IMPRESSION: No acute findings, Retained stool in the colon subjectively unchanged from the previous study Decreased number of Sitzmarks markers within the colon since the previous study Electronically Signed: Milan Arnold MD at 8:59 EDT ,
== END | disposition home or self-care (01) ==
LOC: RAD 08:37
PROVIDERS: PCP Family Medicine
DX: K59.01 Slow transit constipation (principal)
CPT/HCPCS: 74018

== ENCOUNTER 2024-03-01 05:49 | Day surgery (SDC) | payer OTHER, SELFPAY ==
[2024-03-01] VITALS (7 sets, daily range): BP systolic 95–132; BP diastolic 58–85; PULSE 68–81; RESP 16–18; TEMP 36.6–37.3; O2SAT 100; BMI 24.3
--- NOTE | 2024-03-01 | COLBX_PTH ---
PATIENT: CHARLIE ROMERO LOC: EN U#:[id number] AGE/SX: 44/F ROOM: RE03/01/[address]: Dr. Octavio Rodríguez DO : 1980 BED: DIS: 03/01/2024 SPEC #: [id number] RECD: 03/01/24 10:05 STATUS: ARMOND SANCHEZ #: [id number] KRISTOFER: 03/01/24 00:[address]: Octavio Rodríguez DEPT: SURGICAL PATHOLOGY RECD BY: Bakari Aguirre ENTERED: 03/01/24 10:06 SP TYPE: COLON BX OT DR: Dr. Carolina El MD Tissues: A - Ileum, NOS B - COLON BIOPSY Procedures: Surgery Specimen Level IV HEADER OPERATION: Colonoscopy with biopsies PRE-OP DIAGNOSIS: Constipation, diarrhea TISSUE SUBMITTED: A- Terminal ileum biopsy, B- Random colon biopsy MICROSCOPIC DIAGNOSIS A. Terminal ileum, biopsy: No pathologic change. B. Colon, random biopsy: Focal denudation of mucosa and recent mucosal hemorrhage. No evidence of colitis. AM. 03/02/2024 MICROSCOPIC DESCRIPTION Slides are reviewed. GROSS DESCRIPTION A. Received in fixative is one container labeled with the patient's name and designated Terminal ileum biopsy. The specimen consists of multiple irregular fragments of light bansal soft tissue that in aggregate measure 0.9 x 0.5 x 0.1 cm. The specimen is totally submitted in one cassette. B. Received in fixative is one container labeled with the patient's name and designated Random colon biopsy. The specimen consists of multiple irregular fragments of light bansal soft tissue that in aggregate measure 2.0 x 0.7 x 0.1 cm. The specimen is totally submitted in one cassette. AM. 03/01/2024 TC:5 CPT:25320y1
[2024-03-01 06:27] LABS: Internal QC Validated? YES +Cl - CLEAR BKGD; Pregnancy, Urine Negative Negative
--- NOTE | 2024-03-01 06:42 | PRE.ANES_ITS ---
ASA Classification* ASA Classification ASA Classification: 2 Assessment & Plan Anesthesia* Anesthesia Assessment Anesthesia Assessment: Discussed sedation and/or anesthesia options, risks, benefits, and alternatives with patient/parents/legal guardian/POA. Questions invited. The patient/parents/legal guardian/POA seems to understand and agrees to proceed with anesthesia plan. Reviewed the physical assessment, medical history, allergy history and patient home medications list prior to surgery/procedure/anesthetic and documented any changes. Performed airway and anesthesia risk assessments. Anesthesia Type Anesthesia Type: MAC Anesthesia Focused Assessment* Temperature: 99.1 F Pulse Rate: 79 Blood Pressure: 132/85 Respiratory Rate: 16 Pulse Ox: 100 Airway Assessment Mouth opens: >3 cm Mallampati Score: II Focused Labs Anesthesia Preop lab: CBC WBC 8.7 K/mm3 (4.4-11.0) 06/02/23 11:35 RBC 5.10 M/mm3 (4.2-5.4) 06/02/23 11:35 Hgb 14.9 g/dL (12.0-15.0) 06/02/23 11:35 Hct 46.4 % (37-47) 06/02/23 11:35 Plt Count 333 K/mm3 (150-450) 06/02/23 11:35 CHEMISTRY Potassium 4.0 mmol/L (3.5-5.1) 06/02/23 11:35 Sodium 136 mmol/L (136-145) 06/02/23 11:35 Phosphorus 3.0 mg/dL (2.5-4.9) 10/31/21 11:21 BUN 10 mg/dL (7-18) 06/02/23 11:35 Creatinine 0.89 mg/dL (0.55-1.02) 06/02/23 11:35 Glucose 92 mg/dL (74-106) 06/02/23 11:35 TSH 1.69 uIU/mL (0.358-3.74) 10/24/20 09:31 COAG Urine Test Negative Negative 03/01/24 03:20 Tst Clinic Negative 07/28/19 13:46 Pre-Assessment Diagnosis/Proposed Procedure Planned Operative Procedure(s): CSCOPE Anesthesia History Anesthesia History - hand bunch maker: Anesthesia History - hand bunch maker Hx Hospitalization No 02/25/24 12:24 Any Problems With Anesthesia Yes: HYPOTENSION W/ BACK 02/25/24 12:24 SURGERIES Cholinesterase deficiency No 02/25/24 12:24 You/Your Family Experience No 02/25/24 12:24 fever (hyperthermia) with Relationship Recent Exposure to Contagious No 03/01/24 06:25 Disease Does patient have nerve No 02/25/24 12:24 stimulator Patient instructed to have device shut off --Does patient have Pacemaker No 03/01/24 06:25 or ICD? When Was Last Pacemaker Check QUESTION #4 FULL TEXT: You/Your Family Experience fever (hyperthermia) with Anesthesia Last Oral Intake Last Oral intake: Last Oral Intake NPO since 23:00 03/01/24 06:25 Meds taken in AM with sips of No 03/01/24 06:25 water? Meds patient instructed to take am of surgery PONV PONV - hand bunch maker: PONV - hand bunch maker Female Yes 02/25/24 12:24 HX of Motion Sickness No 02/25/24 12:24 HX of N/V After Surgery No 02/25/24 12:24 Non-Smoker Yes 02/25/24 12:24 Duration of Surgery greater No 02/25/24 12:24 than 60 minutes Number of Risk Factors 2 02/25/24 12:24 PONV Score Moderate Risk 02/25/24 12:24 Height & Weight Height & Weight: Anesthesia: Height & Weight Height 5 ft 6 in 03/01/24 06:25 Weight: 68.3 kg 03/01/24 06:25 Body Mass Index (BMI) 24.3 03/01/24 06:25 Respiratory Assessment Respiratory Assessment - hand bunch maker: Respiratory Tract Infection Hx - hand bunch maker Hx Respiratory Tract Infection No 02/25/24 12:24 STOP Sleep Apnea STOP Sleep Apnea - hand bunch maker: STOP Sleep Apnea - hand bunch maker Hx Hypertension No 02/25/24 12:24 Hx Sleep Apnea No 02/25/24 12:24 CPAP BIPAP Do you snore loudly (louder No 02/25/24 12:24 than talking or can be heard Do you often feel tired/ No 02/25/24 12:24 fatigued/ sleepy during daytime? Has anyone observed you stop No 02/25/24 12:24 breathing during sleep? STOP Results Negative 02/25/24 12:24 QUESTION #5 FULL TEXT : Do you snore loudly (louder than talking or can be heard through closed doors)? Tobacco Use History Tobacco Use History - hand bunch maker: Tobacco Use History - hand bunch maker Tobacco Use Smoking Status Former smoker 02/25/24 12:24 Hx Tobacco Use No 02/25/24 12:24 Years Smoking Packs Smoked per Day Smoking Cessation Date was Yes - quit smoking within 15 02/25/24 12:24 within the last 15 years years Hx Smoking Cessation Date 03/24/17 02/25/24 12:24 Hx Smoking Cessation Counseling Hematologic Medial History Hematologic Hx - hand bunch maker: Hematologic Medical Hx - kiln repairer Hx of Blood Transfusion No 02/25/24 12:24 Hx of Transfusion in last 3 No 02/25/24 12:24 Months Date of Last Transfusion (if within last 3 months) Ever experience any problems No 02/25/24 12:24 with transfusion(s)? Specify any problems Hx of Preganancy in last 3 N/A 02/25/24 12:24 Months Nurse Filling Out Transfusion NBUCHER 02/25/24 12:24 & Questions: Date: 02/25/24 02/25/24 12:24 Time: 12:25 02/25/24 12:24 Patient unable to answer at this time (ie. confused, unrespo /Reproduction History /Reproductive History - hand bunch maker: /Reproductive Hx- hand bunch maker Hx Now No 02/25/24 12:24 Gestational Age (in weeks): EDC: Hx Hx Para Hx Section SAB No 02/25/24 12:24 PFSH Medical History Leg pain Leg swelling History of renal disease Shortness of breath on exertion Epigastric pain GERD (gastroesophageal reflux disease) Gastric reflux Wears glasses Loose, teeth Alcohol use Back pain History of diverticulitis Heartburn Former smoker History of pain when walking vericose vein surgery Home Medications ?Medication ?Instructions ?Recorded ?Last Taken ?Type multivitamin 1 tab PO DAILY 10/24/20 07/13/23 History Lactobacillus acidophilus 250 500 mmu cells PO DAILY 12/23/22 07/13/23 History million cell capsule (Probiotic Acidophilus) psyllium husk 0.4 gram capsule 0.8 g PO DAILY 07/02/23 07/13/23 History (Daily Fiber) pantoprazole 20 mg tablet,delayed 20 mg PO Q12H #60 tabs 12/08/23 Unknown Rx release Allergy/AdvReac Type Severity Reaction Status Date / Time latex Allergy Severe Other Verified 03/01/24 06:24 nitrofurantoin (From Allergy Intermediate Nausea Verified 03/01/24 06:24 Macrobid) esomeprazole (From Nexium) AdvReac Intermediate Other Verified 03/01/24 06:24 Family History Mother Diabetes Cancer renal cell carsinoma Surgical History History of esophagogastroduodenoscopy (EGD) History of back surgery H/O spinal fusion Hx of vein stripping Hx of rectal sphincterotomy History of hysteroscopy H/O dilation and curettage 4th degree tear in sphincterplasty delivery delivered Social History Smoking Status: Former smoker alcohol intake: current details: social substance use type: does not use caffeine: Yes frequency: 1-2 times per week seatbelt use: always do you feel safe at home: Yes 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
--- NOTE | 2024-03-01 06:43 | HP.PCM_ITS ---
History and Physical Date of Admission: 03/01/24 Chief Complaint: constipation and diarrhea Details: CHARLIE ROMERO, is a 43 F who presents to the office today for FU with increasing symptoms of GERD and new complaints of diarrhea mixed with constipation. She reports episodes of heartburn ramping up and needing to take more Tums. She denies difficulty chewing and swallowing, nausea, vomiting, and melena. She reports rarely hematochezia, but does have internal hemorrhoids. She reports tenesmus and sensation of stool in her rectal vault which has been impeding sexual intercourse for several weeks. She reports taking fiber caps and probiotics. She also reports traumatic vaginal for her first child; she stated the doctor gave her a vicious episiotomy and cut through her vagina to her rectum, and then only repairing surface tissue of vaginal wall. She states that she is missing part of her anal sphincter because of this. She denies having been offered pelvic floor therapy at that time. ROS Const Constitutional: Positive for fatigue; No fever(s) or weight change Eyes Eyes: No change in vision ENT ENT: No abnormal hearing or difficulty swallowing Resp Respiratory: No cough Cardio Cardiology: No chest pain at rest, chest pain with exertion or leg pain with exertion Gastro GI: Positive for bloating, constipation, diarrhea and excessive flatus; No abdominal pain, belching, change in bowel habits, change in stool character, coffee ground emesis, cramping, heartburn, difficulty swallowing, feeling full early, incontinent of stools, Vomiting blood/hematemesis, Blood in stool, loose stools, Black,tarry stools, nausea/dyspepsia, pain with swallowing, vomiting or other Genitourinary-Female: Positive for urinary frequency and urinary urgency Musc Musculoskeletal: Positive for back pain and sciatica; No joint pain or leg pain with exertion Skin Skin: No yellowing of the eye or itchy eyes Neuro Neurology: No abnormal hearing Psych Psychiatric: No anxiety and No depression Endo Endocrine: Positive for fatigue; No cold intolerance, heat intolerance or weight change Aller/Imm Allergy/Immunologic: No food intolerance or itchy eyes Rebel/Lymp Hematologic/Lymphatic: No easy bleeding or easy bruising Exam Const General: cooperative, healthy appearing, comfortable and no acute distress HENMT Head: normal to inspection Ears: hearing grossly normal bilaterally Nose: external nose normal Face and sinus: normal facial exam and face symmetric Eyes General: appearance normal, both eyes and all related structures Sclera: sclerae normal Neck Neck: normal visual inspection and full ROM Chest Chest palpation & inspection: normal inspection of the chest Resp Effort & Inspection: normal respiratory effort, able to speak in complete sentences and symmetric chest movement GI Inspection: normal to inspection Skin General: no rashes or lesions noted Neuro General: patient alert, patient awake and patient oriented x3 Cognition: normal cognition Speech: speech normal Gait: normal gait Extrem General: full ROM Psych Appearance: well kempt Mental Status: mental status grossly normal Mood: congruent mood Affect: normal affect Speech and Movement: speech and movement normal Attitude: cooperative Thought Process: normal Assessment and Plan Assessment and Plan (1) GERD (gastroesophageal reflux disease): Status: Chronic Qualifiers: Esophagitis bleeding: without hemorrhage Esophagitis presence: with esophagitis Qualified Code(s): K21.00 - Gastro-esophageal reflux disease with esophagitis, without bleeding (2) Constipation: Status: Chronic Qualifiers: Constipation type: slow transit constipation Qualified Code(s): K59.01 - Slow transit constipation Plan: CHARLIE ROMERO, is a 43 F who presents to the office today for FU with increasing symptoms of GERD and new complaints of diarrhea mixed with constipation. Differential diagnoses include: idiopathic constipation, pelvic floor dysfunction, IBS-M, UTI. Discussed plan with patient. * blood for food allergy testing, inflammatory markers * stool for inflammatory markers and enzymes * urine to check for UTI * KUB now to look for impaction * increase pantoprazole to 40mg PO BID f74ases, then return to 20mg PO BID * sitz marker study to begin Friday, 12.26.23, KUBs ordered days 3 and 5 * call with results Orders: Orders Allergen, Food Profile 14 Today K21.00 - Gastro-esophageal reflux disease with esophagitis, without bleeding, K59.01 - Slow transit constipation, R19.7 - Diarrhea, unspecified Calprotectin, Stool Today K21.00 - Gastro-esophageal reflux disease with esophagitis, without bleeding, K59.01 - Slow transit constipation, R19.7 - Diarrhea, unspecified Celiac Disease Profile Today K21.00 - Gastro-esophageal reflux disease with esophagitis, without bleeding, K59.01 - Slow transit constipation, R19.7 - Diarrhea, unspecified CRP Today K21.00 - Gastro-esophageal reflux disease with esophagitis, without bleeding, K59.01 - Slow transit constipation, R19.7 - Diarrhea, unspecified Erythrocyte Sed Rate Today K21.00 - Gastro-esophageal reflux disease with esophagitis, without bleeding, K59.01 - Slow transit constipation, R19.7 - Diarrhea, unspecified Pancreatic Elastase, Fecal Today K21.00 - Gastro-esophageal reflux disease with esophagitis, without bleeding, K59.01 - Slow transit constipation, R19.7 - Diarrhea, unspecified Stool Lactoferrin/WBC Today K21.00 - Gastro-esophageal reflux disease with esophagitis, without bleeding, K58.9 - Irritable bowel syndrome, unspecified, K59.01 - Slow transit constipation, R19.7 - Diarrhea, unspecified Urinalysis, Complete Today K21.00 - Gastro-esophageal reflux disease with esophagitis, without bleeding, K59.01 - Slow transit constipation, R19.7 - Diarrhea, unspecified Abdomen Single View Today K59.01 - Slow transit constipation Abdomen Single View 12/29/23 K59.01 - Slow transit constipation Abdomen Single View 12/31/23 K59.01 - Slow transit constipation I have examined the patient and the H&P has been reviewed. There are no clinical changes since date of exam.
--- NOTE | 2024-03-01 07:42 | OP.CCLET_ITS ---
03/01/2024 Carolina El Md Re : Colonoscopy procedure for Laisha Baker Dear Dr. El This procedure was performed on Friday, March 01, 2024. My impressions and recommendations are as follows: Impressions : - Diverticulosis in the recto-sigmoid colon, in the sigmoid colon and in the descending colon. - Congested mucosa in the recto-sigmoid colon, in the sigmoid colon, in the transverse colon and in the ascending colon. Biopsied. - Congested mucosa in the terminal ileum. Biopsied. Recommendations : - Discharge patient to home. - Resume previous diet. - Continue present medications. - Await pathology results. - Repeat colonoscopy in 5 years for surveillance. My findings are described in the full procedure note, which is enclosed. If I can be of further assistance, please feel free to contact me at . Sincerely, Octavio Rodríguez, 03/01/2024 7:42:03 AM This report has been signed electronically.
--- NOTE | 2024-03-01 07:42 | OP.COLON_ITS ---
Patient Name: Laisha Baker Procedure Date: 03/01/2024 7:07 AM Date of : 1980 Age: 44 Procedure: Colonoscopy Indications: Generalized abdominal pain, Clinically significant diarrhea of unexplained origin Providers: Octavio Rodríguez DO Referring MD: Carolina El Md Medicines: Monitored Anesthesia Care Patient Profile: This is a 44 year old female. Refer to note in patient chart for documentation of history and physical. Last Colonoscopy: none. The patient's first colonoscopy is today. Complications: No immediate complications. Procedure: Pre-Anesthesia Assessment: - Prior to the procedure, a History and Physical was performed, and patient medications and allergies were reviewed. The patient is competent. The risks and benefits of the procedure and the sedation options and risks were discussed with the patient. All questions were answered and informed consent was obtained. Patient identification and proposed procedure were verified by the physician in the pre-procedure area. Mental Status Examination: alert and oriented. Airway Examination: normal oropharyngeal airway and neck mobility. Respiratory Examination: clear to auscultation. CV Examination: normal. Prophylactic Antibiotics: The patient does not require prophylactic antibiotics. Prior Anticoagulants: The patient has taken no anticoagulant or antiplatelet agents except for NSAID medication. ASA Grade Assessment: II - A patient with mild systemic disease. After reviewing the risks and benefits, the patient was deemed in satisfactory condition to undergo the procedure. The anesthesia plan was to use monitored anesthesia care (MAC). Immediately prior to administration of medications, the patient was re-assessed for adequacy to receive sedatives. The heart rate, respiratory rate, oxygen saturations, blood pressure, adequacy of pulmonary ventilation, and response to care were monitored throughout the procedure. The physical status of the patient was re-assessed after the procedure. After I obtained informed consent, the scope was passed under direct vision. Throughout the procedure, the patient's blood pressure, pulse, and oxygen saturations were monitored continuously. The Colonoscope was introduced through the anus and advanced to the terminal ileum. The colonoscopy was performed without difficulty. The patient tolerated the procedure well. The quality of the bowel preparation was adequate. The terminal ileum, ileocecal valve, appendiceal orifice, and rectum were photographed. Scope In: 7:19:41 AM Scope Withdrawal Time 0 hours 11 minutes 29 seconds Scope Out: 7:36:24 AM Total Procedure Duration Time 0 hours 16 minutes 43 seconds Findings: The perianal and digital rectal examinations were normal. Pertinent negatives include normal sphincter tone. Multiple small and large-mouthed diverticula were found in the recto-sigmoid colon, sigmoid colon and descending colon. An area of mildly congested mucosa was found in the recto-sigmoid colon, in the sigmoid colon, in the transverse colon and in the ascending colon. Biopsies were taken with a cold forceps for histology. Verification of patient identification for the specimen was done. Estimated blood loss was minimal. A patchy area of the terminal ileum was congested. Biopsies were taken with a cold forceps for histology. Verification of patient identification for the specimen was done. Estimated blood loss was minimal. Impression: - Diverticulosis in the recto-sigmoid colon, in the sigmoid colon and in the descending colon. - Congested mucosa in the recto-sigmoid colon, in the sigmoid colon, in the transverse colon and in the ascending colon. Biopsied. - Congested mucosa in the terminal ileum. Biopsied. Recommendation: - Discharge patient to home. - Resume previous diet. - Continue present medications. - Await pathology results. - Repeat colonoscopy in 5 years for surveillance. Procedure Code(s): --- Professional --- 18637, Colonoscopy, flexible; with biopsy, single or multiple CPT copyright 2021 [employer]. All rights reserved. The codes documented in this report are preliminary and upon engine assembly supervisor review may be revised to meet current compliance requirements. Octavio Rodríguez DO 03/01/2024 7:42:03 AM This report has been signed electronically. Number of Addenda: 0 Note Initiated On: 03/01/2024 7:07 AM
--- NOTE | 2024-03-01 07:44 | PCM.POST.ANE ---
Anesthesia: Postop Eval I Current Vital Signs Temperature: 97.9 F Pulse Rate: 81 Blood Pressure: 95/58 Respiratory Rate: 18 Pulse Ox: 100 Oxygen Delivery Method: Room Air Assessment Airway patent: Yes Spontaneous unlabored respirations: Yes Mental status: Asleep nausea: No Vomiting: No Anesthesia Complication: No Fluid Hydration Crystalloid volume administer (ml): 60 Total IV fluid infused: 60 Progress Note Anesthesia document: Postop Eval 1 completed: Yes
--- NOTE | 2024-03-01 08:35 | PCM.POSTANE2 ---
Anesthesia Postop Eval I Sum Postop Eval Completion status Anesthesia document: Postop Eval 1 completed: Yes Anesthesia Postop Eval I Summary Anesthesia Postop Eval I Summary: Anesthesia Postop Eval I: Assessment Summary Airway patent Yes 03/01/24 07:45 [email or web address] Spontaneous unlabored Yes 03/01/24 07:45 [email or web address] respirations Mental status Asleep 03/01/24 07:45 [email or web address] nausea No 03/01/24 07:45 [email or web address] Vomiting No 03/01/24 07:45 [email or web address] Anesthesia Postop Eval I: Fluid Summary Crystalloid volume administer 60 03/01/24 07:45 [email or web address] (ml) Colloids volume administered ( ml) Blood Product volume administered (ml) Total IV fluid infused 60 03/01/24 07:45 [email or web address] Anesthesia Postop Eval I: Summary Notes Anesthesia Complication No 03/01/24 07:45 [email or web address] Anesthesia Complication Comment: Post-operative progress note Anesthesia: Postop Eval II Evaluation Mental status: Awake Pain Level: 0 nausea: No Vomiting: No
== END 2024-03-01 08:16 | disposition home or self-care (01) ==
LOC: EN 05:50 → AC 05:51
PROVIDERS: Anesthesiology; PCP Family Medicine; Referring Provider Family Medicine; Visit Provider Internal Medicine Gastroenterology
PROC: 0DJD8ZZ Inspection of Lower Intestinal Tract, Via Natural or Artificial Opening Endoscopic (ICD-10-PCS; CPT 45378; principal; 2024-03-01 06:55)
DX: K63.89 Other specified diseases of intestine (principal); K21.00 Gastro-esophageal reflux disease with esophagitis, without bleeding; K59.01 Slow transit constipation; R19.7 Diarrhea, unspecified; K57.30 Diverticulosis of large intestine without perforation or abscess without bleeding; Z87.19 Personal history of other diseases of the digestive system; Z87.891 Personal history of nicotine dependence
CPT/HCPCS: 45380; 81025; 88305; A4216; J2405

== ENCOUNTER → 2024-03-10 | Outpatient (CLI) | payer OTHER, SELFPAY ==
[2024-03-10 16:06] LABS: Follicle Stimulating Hormone 4.4 mIU/mL; Luteinizing Hormone 6.5 mIU/mL
[2024-03-10 16:08] LABS: Erythrocyte Sedimentation Rate 11 mm/hr (0-30)
[2024-03-12 08:10] LABS: PROGESTERONE 3.1 ng/mL (.)
[2024-03-21 14:07] LABS: ALDOSTERONE/RENIN RATIO 3.2 (0.0-30.0); Aldosterone, Serum 6.4 ng/dL (0.0-30.0); Anti-Cardiolipin Ab, IgA, Qn < 9 APL U/mL (0-11); Anti-Cardiolipin Ab, IgG, Qn < 9 GPL U/mL (0-14); Anti-Cardiolipin Ab, IgM, Qn 10 MPL U/mL (0-12); Anti-Thrombin 3 AG, Immunol 109 % (72-124); Antithrombin 3 Function 139 % (75-135); Complement C3 147 mg/dL (82-167); Complement CH50 44 U/mL (>41); Dilute Prothrombin Time (dPT) 34.9 sec (0.0-47.6); Dilute Russell Viper Venom 33.6 sec (0.0-47.0); Estrogen, Total, Serum 183 pg/mL (.); Interpretation Comment: (.); PTT-LA 34.2 sec (0.0-43.5); Protein C, Functional 124 % (73-180); Protein S, Free 124 % (61-136); Protein S, Funtional 105 % (63-140); Protein S, Total 110 % (60-150); Renin, Plasma 1.971 ng/mL/hr (0.167-5.380); Thrombin Time 16.1 sec (0.0-23.0); dPT Confirm Ratio 1.02 Ratio (0.00-1.34)
== END | disposition home or self-care (01) ==
PROVIDERS: PCP Family Medicine; Referring Provider Internal Medicine Gastroenterology; Visit Provider Internal Medicine Gastroenterology
DX: K55.9 Vascular disorder of intestine, unspecified (principal)
CPT/HCPCS: 36415; 81240; 81241; 82088; 82533; 82672; 83001; 83002; 84144; 84244; 85300; 85301; 85303; 85305; 85306; 85652; 86147; 86160; 86162

== ENCOUNTER → 2024-06-30 | Outpatient (CLI) | payer OTHER, SELFPAY ==
[2024-06-30 15:19] LABS: Absolute Lymphocyte Count 2.26 X10^3/uL (0.83-4.51); Absolute Neutrophil Count 4.2 X10^3/uL (2.0-7.7); Basophil# 0.04 X10^3/uL; Basophil% 0.6 % (0-1); Eosinophil# 0.13 X10^3/uL; Eosinophils% 1.8 % (0-5); Hematocrit 41.8 % (37-47); Hemoglobin 13.6 g/dL (12.0-15.0); Lymphocyte # 2.26 X10^3/ul (0.83-4.51); Lymphocyte % 31.7 % (19-41); Mean Corp Hgb Conc 32.5 g/dL (32-36); Mean Corpuscular Hgb 29.7 pg (27.0-32.0); Mean Corpuscular Volume 91.3 fL (81-99); Mean Platelet Vol. 9.3 fl (6.2-12.0); Monocyte# 0.55 X10^3/uL; Monocyte% 7.7 % (0-10); NRBC Flagged by Analyzer 0 % (0-5); Neutrophil # 4.15 X10^3/uL (2.7-7.7); Neutrophil % 58.1 % (47-70); Platelet Count 320 K/mm3 (150-450); RBC Distribution Width CV 13.1 % (11.6-14.6); RBC Distribution Width SD 43.9 fl (35.1-43.9); Red Blood Count 4.58 M/mm3 (4.2-5.4); White Blood Count 7.1 K/mm3 (4.4-11.0)
[2024-06-30 16:25] LABS: Thyroid Stim Hormone (TSH) 0.981 uIU/mL (0.300-4.200)
[2024-07-02 09:08] LABS: Thyroid Peroxidase AB 17 IU/mL (0-34)
== END | disposition home or self-care (01) ==
PROVIDERS: PCP Family Medicine; Referring Provider Nurse Practitioner Women's Health; Visit Provider Nurse Practitioner Women's Health
DX: R23.2 Flushing (principal); Z13.29 Encounter for screening for other suspected endocrine disorder
CPT/HCPCS: 36415; 84439; 84443; 85025; 86376

== ENCOUNTER 2024-10-12 08:38 | Emergency (ER) | payer OTHER, SELFPAY ==
[2024-10-12 08:39] VITALS: BP 149/94; PULSE 76; RESP 16; TEMP 36.7; O2SAT 100; BMI 24.2
[2024-10-12 08:41] VITALS: BP 125/76; PULSE 65; RESP 17; TEMP 37.2; O2SAT 100
--- NOTE | 2024-10-12 09:06 | EX.ED.DYSGE1 ---
HPI History of Present Illness Chief Complaint: Other, Pain/Inj Informant: patient Narrative Narrative: Increasing pain right perianal over 2 days. Status post Mucopexy 4 days ago at [facility] by Dr. Bravo. She is under general anesthesia. She is taking stool softeners. Over the last 2 days increasing pain with foul odor drainage. She has been using [id number] Tylenol therefore no fever or chills. She was treated for rectal prolapse. Abdominal surgeries include cholecystectomy and Anterior lumbar fusion. today notes some pain in the right lower pelvis region. Reported called her surgeon's office yesterday around 2 PM, was told to go to the office however she lives an hour away would not make it there in time. They sent in prescription topical Flagyl pending at her pharmacy. With increasing pain, she came here for evaluation. [facility] Medical History Leg pain Leg swelling History of renal disease Shortness of breath on exertion Epigastric pain GERD (gastroesophageal reflux disease) Gastric reflux Wears glasses Loose, teeth Alcohol use Back pain History of diverticulitis Heartburn Former smoker History of pain when walking vericose vein surgery Home Medications Medication Instructions Recorded Last Taken Type multivitamin 1 tab PO DAILY 10/24/20 10/11/24 History Lactobacillus acidophilus 250 500 mmu cells PO DAILY 12/23/22 10/11/24 History million cell capsule (Probiotic Acidophilus) psyllium husk 0.4 gram capsule 0.8 g PO DAILY 07/02/23 10/11/24 History (Daily Fiber) pantoprazole 20 mg tablet,delayed 20 mg PO Q12H #60 tabs 05/10/24 10/11/24 Rx release cefdinir 300 mg capsule 300 mg PO Q12H #14 caps 10/12/24 Unknown Rx metronidazole 500 mg tablet 500 mg PO Q8H 7 days #21 tabs 10/12/24 Unknown Rx tramadol 50 mg tablet 50 mg PO Q6H PRN PRN pain 10/12/24 Unknown History Allergy/AdvReac Type Severity Reaction Status Date / Time latex Allergy Severe Other Verified 10/12/24 08:42 nitrofurantoin (From Allergy Intermediate Nausea Verified 10/12/24 08:42 Macrobid) esomeprazole (From Nexium) AdvReac Intermediate Other Verified 10/12/24 08:42 Family History Mother Diabetes Cancer renal cell carsinoma Surgical History History of esophagogastroduodenoscopy (EGD) History of back surgery H/O spinal fusion Hx of vein stripping Hx of rectal sphincterotomy History of hysteroscopy H/O dilation and curettage 4th degree tear in sphincterplasty delivery delivered Social History Smoking Status: Former smoker alcohol intake: current details: social substance use type: does not use caffeine: Yes frequency: 1-2 times per week seatbelt use: always do you feel safe at home: Yes 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[employer] ROS ROS ED Constitutional Constitutional ED: Denies fever(s) Cardiovascular Cardiovascular: Denies chest pain Respiratory/Chest Respiratory/Chest: Denies cough Gastrointestinal Gastrointestinal: Reports abdominal pain and other Details: Rectal pain and drainage ; Denies diarrhea or vomiting Musculoskeletal Musculoskeletal: Denies none Integumentary Denies rash or wounds Neurologic Neurologic: Denies weakness EXAM Physical Exam Const Vital Signs: 10/12/24 08:39 10/12/24 08:41 10/12/24 09:41 Temperature 98.1 F 98.9 F 98.4 F Temperature Source Oral Oral Temporal Pulse Rate 76 65 76 Respiratory Rate 16 17 18 Respiratory Effort Respiratory Pattern Blood Pressure 149/94 H 125/76 H 134/74 H Blood Pressure Mean 112 92 94 Pulse Ox 100 100 98 Oxygen Delivery Method Room Air Room Air Room Air 10/12/24 09:41 10/12/24 11:00 10/12/24 11:33 Temperature 98.7 F 98.7 F Temperature Source Oral Pulse Rate 78 78 Respiratory Rate 16 16 Respiratory Effort Normal Respiratory Pattern Normal Blood Pressure 138/78 H 138/78 H Blood Pressure Mean 98 98 Pulse Ox 98 98 Oxygen Delivery Method Room Air Positive well nourished and well developed General Appearance ED: well developed and NAD HEENT Reports moist mucous membranes normocephalic and atraumatic Eyes General Eye ED: Yes normal appearance of both eyes Neck full ROM Chest Wall Chest: Negative for tenderness Resp normal respiratory effort and normal air movement Effort and Inspection: symmetric chest movement; Negative for respiratory distress Cardio regular rate, regular rhythm and no murmurs Peripheral Pulses: pulses 2+ throughout GI normal to inspection, nondistended, normoactive bowel sounds and non-tender 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 Palpation: Negative for guarding or rebound tenderness present Extremity normal to inspection General Extremety ED: Negative for edema or tenderness General Extremity: Negative for edema Neuro oriented x3 and no sensory deficits noted Sensorium / Orientation: awake and alert Skin no rashes or lesions noted and no wounds MDM MDM MDM Narrative Medical decision making narrative: Interventions / MDM: Differential diagnosis: Proctitis, perianal abscess Diagnosis considered but do not suspect: My EKG interpretation: N/A Imaging independently reviewed and interpreted by myself: CT pelvis IV contrast: Inflammatory changes down the rectum however no abscess. External documents reviewed: N/A Test considered but not ordered:N/A ED course: Exam is concerning for anal or perianal abscess with fluctuance. However she is postop procedure day 4. Will check labs will get CT pelvis IV contrast for further evaluation. Patient declines any pain medicines at this time. CT with no collectible abscess per radiology. Labs are normal. She had fluctuance I discussed with patient due to symptoms can perform I&D to help relieve pressure. She did not want to go through additional procedure at this time. Will place her on oral Flagyl and cefdinir to cover for proctitis. She is currently on stool softeners. She will follow-up with her surgeon. All questions were answered. Re-evaluation: stable Disposition discussed with patient/family/significant other: Patient Case discussed with consulting clinician: N/A This note was generated with [employer] dictation software. It may contain incorrect words, spelling, and punctuation that were not noted in checking the note before signing. Lab Data Attestation: I reviewed the patient's lab results. Labs: Laboratory Results - last 24 hr 10/12/24 09:02 WBC 9.0 RBC 4.91 Hgb 14.5 Hct 44.8 MCV 91.2 MCH 29.5 MCHC 32.4 RDW Std Deviation 43.5 RDW Coeff of Morgan 13.0 Plt Count 292 MPV 9.1 Immature Gran % (Auto) 0.300 Neut % (Auto) 70.7 H Lymph % (Auto) 20.9 [place] % (Auto) 6.8 Eos % (Auto) 0.9 Baso % (Auto) 0.4 Absolute Neuts (auto) 6.4 Absolute Lymphs (auto) 1.88 Nucleated RBC % 0 Sodium 137 Potassium 3.9 Chloride 101 Carbon Dioxide 23.2 Anion Gap 12 BUN 8 Creatinine 0.78 Estim Creat Clear Calc 85.26 Est GFR (MDRD) Non-Af 96 BUN/Creatinine Ratio 9.9 L Glucose 104 H Calcium 9.9 Radiography Diagnostic Testing: Clinical Impression(s) from Imaging Studies Pelvis CT 10/12/24 10:05 IMPRESSION: 1. Fecal retention in the colon consistent with constipation. 2. Colonic diverticulosis without acute diverticulitis. Reading Location: [facility] Discharge Plan Triage Chief Complaint: Other, Pain/Inj ED Provider: Milton Vance Dx/Rx/DC Orders Clinical Impression: Acute proctitis, Rectal pain Instructions: Managing Post-Op Pain at Home Prescriptions: New metronidazole 500 mg tablet 500 mg PO Q8H 7 Days Qty: 21 0RF cefdinir 300 mg capsule 300 mg PO Q12H Qty: 14 0RF No Action multivitamin Tablet 1 tab PO DAILY Probiotic Acidophilus 250 million cell capsule 500 mmu cells PO DAILY tramadol 50 mg tablet 50 mg PO Q6H PRN PRN (Reason: pain) psyllium husk [Daily Fiber] 0.4 gram capsule 0.8 g PO DAILY pantoprazole 20 mg tablet,delayed release (DR/EC) 20 mg PO Q12H Qty: 60 3RF Stand Alone Forms: ED Work / School Excuse Primary Care Provider: Carolina El Referrals: Carolina El MD [Primary Care Provider] - Activity Restrictions/Additional Instructions: Blood work white count normal at 9. Your CT pelvis no collection seen. You have tenderness in swelling right perianal area. You are being treated for proctitis. Take antibiotic as prescribed. Follow-up with your surgeon for reevaluation. Print Language: Thai Disposition Disposition: Home, Self Care Discharge Date/Time: 10/12/24 11:48
[2024-10-12] MEDS: 0.9% Normal Saline (500mL Bag) 500 ML 999 ML IV (09:09)
[2024-10-12 09:14] LABS: Hematocrit 44.8 % (37-47); Hemoglobin 14.5 g/dL (12.0-15.0); Immature Granulocytes Count 0.030 X10^3/uL (0.0-0.0); Mean Corp Hgb Conc 32.4 g/dL (32-36); Mean Corpuscular Volume 91.2 fL (81-99); Mean Platelet Vol. 9.1 fl (6.2-12.0); NRBC Flagged by Analyzer 0 % (0-5); Platelet Count 292 K/mm3 (150-450); RBC Distribution Width CV 13.0 % (11.6-14.6); RBC Distribution Width SD 43.5 fl (35.1-43.9); Red Blood Count 4.91 M/mm3 (4.2-5.4); White Blood Count 9.0 K/mm3 (4.4-11.0)
[2024-10-12 09:41] VITALS: BP 134/74; PULSE 76; RESP 18; TEMP 36.9; O2SAT 98
[2024-10-12 09:54] LABS: Anion Gap 12 (5-15); BUN 8 mg/dL (4-19); BUN/Creat Ratio 9.9 RATIO (10-20); Calcium,Total 9.9 mg/dL (7.6-11.0); Carbon Dioxide 23.2 mmol/L (21.0-32.0); Chloride 101 mmol/L (98-108); Estimated Creatinine Clearance 85.26 ml/min (50-250); Glucose 104 mg/dL (70-99); Potassium 3.9 mmol/L (3.3-5.1)
--- NOTE | 2024-10-12 10:05 | CT_ITS ---
EXAM: CT Pelvis With Intravenous Contrast CLINICAL INDICATION: PERIRECTAL PAIN TECHNIQUE: Axial computed tomography images of the pelvis with intravenous contrast. This CT exam was performed using one or more of the following dose reduction techniques: automated exposure control, adjustment of the mA and/or kV according to patient size, and/or use of iterative reconstruction technique. COMPARISON: No relevant prior studies available. FINDINGS: BOWEL: Fecal retention in the colon consistent with constipation. Colonic diverticulosis without acute diverticulitis. No obstruction. APPENDIX: No findings to suggest acute appendicitis. INTRAPERITONEAL SPACE: Unremarkable. No free air. No significant fluid collection. BLADDER: Unremarkable. No mass. REPRODUCTIVE: Unremarkable as visualized. BONES/JOINTS: No acute fracture. No dislocation. SOFT TISSUES: Nonspecific fat stranding in the gluteal region, bilaterally may represent inflammation. However, no abscess or organized fluid collection. VASCULATURE: Unremarkable. No lower abdominal aortic aneurysm. LYMPH NODES: Unremarkable. No enlarged lymph nodes. CT/Pelvis WITH IV Contrast IMPRESSION: 1. Fecal retention in the colon consistent with constipation. 2. Colonic diverticulosis without acute diverticulitis. Reading Location: [facility]
[2024-10-12 11:00] VITALS: BP 138/78; PULSE 78; RESP 16; TEMP 37.1; O2SAT 98
[2024-10-12 11:33] VITALS: BP 138/78; PULSE 78; RESP 16; TEMP 37.1; O2SAT 98
== END 2024-10-12 11:48 | disposition home or self-care (01) ==
PROVIDERS: Emergency Provider Emergency Medicine; PCP Family Medicine; Visit Provider Emergency Medicine
DX: K62.89 Other specified diseases of anus and rectum (principal); K21.9 Gastro-esophageal reflux disease without esophagitis; Z98.1 Arthrodesis status; Z90.49 Acquired absence of other specified parts of digestive tract; Z87.19 Personal history of other diseases of the digestive system; Z79.899 Other long term (current) drug therapy; Z87.891 Personal history of nicotine dependence
CPT/HCPCS: 72193; 80048; 85025; 96360; 96361; 99283; Q9967; A4216

== ENCOUNTER → 2024-10-25 | Outpatient (CLI) | payer OTHER, SELFPAY ==
--- NOTE | 2024-10-25 06:46 | RAD_ITS ---
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 No significant dynamic instability is seen on lateral flexion and extension views. Mild degenerative changes of the lumbar spine are noted, with probable mild L4- L5 disc narrowing. Lower lumbar posterior facet hypertrophy is also noted. Minimal sacroiliac joint degenerative changes are also seen. COMPARISON: CT examination of 06/20/2022. RAD/L/S Spine Comp/w Bending Views IMPRESSION: Interbody cage with screws at the L5-S1 level noted, alignment unchanged. Inte rval removal of posterior fixation device and bilateral pedicle screws. Reading Location: [place] [id number]
--- OUTSIDE RECORDS SUMMARY | 2024-10-25 06:51 | XMS RPT_ITS | CCD ---
Author Organization [facility] Care Team Providers Care Fuel Conversion Technician Name Role Phone Teofilo, Estephania D Unavailable Unavailable Canyon, Estephania D Unavailable Unavailable Teofilo, Estephania D Unavailable Unavailable Teofilo, Estephania D Unavailable Unavailable Canyon, Estephania D Unavailable Unavailable Canyon, Estephania D Unavailable Unavailable Elvia Art Unavailable Unavailable Unavailable Jasen Smart DO Unavailable Ulises Reynoso Unavailable Myrtle DESPATCHING AND RECEIVING CLERK, DESPATCHING AND RECEIVING CLERK-C Liz Attending Provider ULISES REYNOSO Primary Care Provider Unavailabl e ULISES REYNOSO Referring Provider Unavailable Myrtle DESPATCHING AND RECEIVING CLERK, DESPATCHING AND RECEIVING CLERK-C Liz Attending Provider ULISES REYNOSO Primary Care Provider Unavailabl e ULISES REYNOSO Referring Provider Unavailable MELIA Bynum Attending Provider Care Physician, No Primary Primary Care Provider Unavailable Care Physician, No Primary Referring Provider Un available MELIA Bynum Attending Provider [phone] Care Physician, No Primary Primary Care Provider Unavailable Care Physician, No Primary Referring Provider Un available Ulises Espinoza Primary Care Provider Care Physician, No Primary Referring Provider Un available Rosaline MAYA, DESPATCHING AND RECEIVING CLERK-C Kim Sagastume Attending Provider ULISES REYNOSO Primary Care Provider Unavailabl e Teofilo, Estephania D Unavailable Elvia Art Unavailable Ulises Reynoso Unavailable Unavailable Colten Taylor Unavailable Unavailable Friend, Dr. Cunningham Attending Provider Friend, Dr. Cunningham Other Provider ANGELES, ULISES Primary Care Provider ANGELES, ULISES Referring Provider [phone] Friend, Dr. Cunningham Attending Provider [phone] Friend, Dr. Cunningham Other Provider ANGELES, ULISES Primary Care Provider ANGELES, ULISES Referring Provider ANGELES, ULISES Primary Care Provider Unavailabl e ANGELES, ULISES Referring Provider Unavailable Care Physician, No Primary Referring Provider Un available Myrtle DESPATCHING AND RECEIVING CLERK, DESPATCHING AND RECEIVING CLERK-C Liz Attending Provider Friend, Dr. Cunningham Attending Provider ANGELES, ULISES Primary Care Provider Unavailabl e Dr. Pepe Titus Attending Provider Dr. Reed Herrera Primary Care Provider Dr. Reed Herrera Referring Provider Dr. Pepe Titus Referring Provider [phone] Dr. Pepe Titus Other Provider SONIA PEREZ Primary Care Provider Sonia Perez MD Primary Care Provider Sonia Perez MD Primary Care Provider Dr. Sonia Perez MD Primary Care Provider Dr. Sonia Perez MD Referring Provider Friend Dr. Octavio SINGH Attending Provider Friend Dr. Octavio SINGH Referring Provider Myrtle DESPATCHING AND RECEIVING CLERK-C, Liz Attending Provider [place] DESPATCHING AND RECEIVING CLERK-C, Liz Referring Provider Reed Herrera Primary Care Provider Javier MD, Reed L Primary Care Provider Sonia Perez MD Primary Care Provider ASHLYN RM Attending Unavailab le YEATER, SONIA M Primary Care Unavailable YEATER, SONIA M Attending Unavailable YEATER, SONIA M Primary Care Unavailable [place] CORRECTION WARDEN, Sonia M Primary Care Provider LEANDRA, CLARE Referring Unavailable JEEVAN, SONIA M Primary Care Unavailable Chris MCCABE, Dr. Sonia Sagastume Primary Care Provider Dr. Sonia Perez MD Referring Provider Assessment, Health Risk Attending Provider Unava ilable Assessment, Health Risk Referring Provider Unava ilable Dr. Milton Vance DO Emergency Provider REED HERRERA Primary Care Unavailable LETICIA AYOUB Attending Unavailable JEEVAN, SONIA M Primary Care Unavailable LETICIA AYOUB Attending Unavailable JEEVAN, SONIA M Primary Care Unavailable LEANDRA, CLARE Referring Unavailable LEANDRA, CLARE Attending Unavailable LEANDRA, CLARE Admitting Unavailable JEEVAN, SONIA M Primary Care Unavailable JAVIERREED L Primary Care Unavailable LEANDRA, CLARE Attending Unavailable Dr. Milton Vance DO Attending Provider Mario Bynum Attending Provider Assessment, Health Risk Attending Unavaila ble Assessment, Health Risk Referring Unavaila ble Yeater, Sonia M Primary Care Unavailable Yeater, Sonia M Primary Care Unavailable Friend, Octavio Attending Unavailable Friend, Octavio Referring Unavailable Liz Iraheta Attending Unavailable Yeater, Sonia M Referring Unavailable Yeater, Sonia M Primary Care Unavailable Yeater, Sonia M Referring Unavailable Yeater, Sonia M Primary Care Unavailable Friend, Octavio Attending Unavailable Yeater, Sonia M Referring Unavailable Yeater, Sonia M Primary Care Unavailable Friend, Octavio Consulting Unavailable Friend, Octavio Attending Unavailable Liz Iraheta Attending Unavailable Yeater, Sonia M Referring Unavailable Yeater, Sonia M Primary Care Unavailable Mario Bynum Attending Unavailable Yeater, Sonia M Referring Unavailable Yeater, Sonia M Primary Care Unavailable Barnhart, Kerry Attending Unavailable [place], Liz Referring Unavailable Myrtle, Liz Attending Unavailable Yeater, Sonia M Primary Care Unavailable [place], Liz Attending Unavailable Myrtle, Liz Referring Unavailable Care Physician, No Primary Primary Care Unava ilable Barnhart, Kerry Attending Unavailable Barnhart, Kerry Referring Unavailable Yeater, Sonia M Primary Care Unavailable Barnhart, Kerry Referring Unavailable Barnhart, Kerry Attending Unavailable Yeater, Sonia M Primary Care Unavailable Yeater, Sonia M Referring Unavailable Yeater, Sonia M Primary Care Unavailable Friend, Octavio Attending Unavailable Le, Milton Attending Unavailable Yeater, Sonia M Primary Care Unavailable Barnhart, Kerry Referring Unavailable Barnhart, Kerry Attending Unavailable Yeater, Sonia M Primary Care Unavailable Barnhart, Kerry Attending Unavailable Barnhart, Kerry Referring Unavailable Yeater, Sonia M Primary Care Unavailable Allergies Allergy Classification Reported Allergen(s) Allergy Type Date of Onset Reaction(s) Facility Latex (2 sources) natural latex rubber Substance Allergy 06-25-19 Rash [facility] Work Phone: NITROFURANTOIN, MACROCRYSTALS / Nitrofurantoin, Monohydrate (2 sources) NITROFURANTOIN, MACROCRYSTALS / Nitrofurantoin, Monohydrate; Translations: [Macrobid] Drug Allergy 06-25-19 Nausea Only, Other [facility] Work Phone: Proton Pump Inhibitors (1 source) Esomeprazole Drug Allergy 06-25-19 Diarrhea, Other [facility] (20 sources) Latex; Translations: [Latex] Propensity to adverse reactions to drug (disorder) 04-20-19 05 [facility] Repository Comment on above: Sensitive (1 source) No Known Medication Allergies; Translations: [No Known Medication Allergies] Propensity to adverse reactions to drug (disorder) [facility] Repository (12 sources) NITROFURANTOIN, MACROCRYSTALS / Nitrofurantoin, Monohydrate; Translations: [Macrobid] Drug Allergy 06-25-19 Nausea Only, Other [facility] Work Phone: (20 sources) Esomeprazole; Translations: [NexIUM PACK] Drug Allergy 06-25-19 Diarrhea, Other [facility] Comment on above: DRY ITCHY SKIN (2 sources) Esomeprazole Drug Allergy 05-31-19 22 dehydrated, Hives [facility] Work Phone: (2 sources) NITROFURANTOIN, MACROCRYSTALS / Nitrofurantoin, Monohydrate Drug Allergy 05-31-19 22 nausea,vomting and diarrhea, Other [facility] Work Phone: (19 sources) Nitrofurantoin Drug Allergy 12-02-19 21 Nausea [facility] (9 sources) oxyCODONE; Translations: [OXYCODONE] Drug Allergy 04-20-19 05 [facility] (2 sources) Esomeprazole; Translations: [ESOMEPRAZOLE] Drug Allergy 06-25-19 [facility] Repository (1 source) NITROFURANTOIN MONOHYD/M-CRYST; Translations: [NITROFURANTOIN MONOHYD/M-CRYST] Propensity to adverse reactions to drug (disorder) 06-25-19 [facility] 3 Repository (1 source) Nitrofurantoin Drug Allergy 10-22-19 [facility] Repository Medications Current Medications Medication Drug Class(es) Dates Sig (Normalized) Sig (Original) Hverr-Tgrm-Bxxln-Col lag-Mv-Min (Angel (With Collagen)) 7-7-1.5 gram Powder In Packet (19 sources) Start: 09-28-2020 Ftjzy-Yfiu-Nvvml-Co llag-Mv-Min (Angel (With Collagen)) 7-7-1.5 gram Powder In Packet Active 1 EACH PO DAILY September 28, 2020 10:55am Start: 09-28-2020 End: 09-06-2022 Ippus-Pxic-Usdzt-Collag-Mv-M in (Angel (With Collagen)) 7-7-1.5 gram Powder In Packet Discontinued 1 NMA PO DAILY September 28, 2020 12:00am September 06, 2022 4:20pm Start: 09-28-2020 End: 09-06-2022 Cvhmm-Nvny-Pksbn-Collag-Mv-M in (Angel (With Collagen)) 7-7-1.5 gram Powder In Packet Discontinued 1 EACH PO DAILY September 27, 2020 11:00pm September 06, 2022 3:20pm Start: 09-28-2020 End: 09-06-2022 Hrhvh-Zxfo-Tkrri-Collag-Mv-M in (Angel (With Collagen)) 7-7-1.5 gram Powder In Packet Discontinued 1 EACH PO DAILY September 28, 2020 12:00am September 06, 2022 4:20pm Start: 09-28-2020 Ofupl-Ogts-Emq hv-Nqiyzo-Aq-Min (Angel (With Collagen)) 7-7-1.5 gram Powder In Packet Active 1 EACH PO DAILY September 27, 2020 11:00pm Start: 09-28-2020 Nxdgf-Dpbo-Zsn mu-Alngii-Pf-Min (Angel (With Collagen)) 7-7-1.5 gram Powder In Packet Active 1 EACH PO DAILY September 28, 2020 12:00am bifidobacterium animalis [id number] unt / lactobacillus acidophilus [id number] unt oral capsule (9 sources) End: 06-25-2022 L. acidophilus/Bifid. animalis 32 billion cell capsule Probiotic CAPS Refills: 0 Active 0 06/25/2022 Discontinued (Therapy completed) ciprofloxacin 500 mg oral tablet (1 source) Quinolone Antimicrobial Start: 12-10-2022 End: 12-16-2022 take 1 tablet by mouth twice daily Cipro 500 mg oral tablet ; 1 tab(s) orally 2 times a day Quantity: 14 Refills: 0 Ordered: 10-Dec-2022 Colten Taylor Start: 10-Dec-2022 End: 16-Dec-2022 Generic Substitution Allowed Comments: Avoid prolonged or excessive exposure to direct and/or artificial sunlight while taking this medication.Check with your doctor before becoming .Do not take dairy products, antacids, or iron preparations within one hour of this medication.Finish all this medication unless otherwise directed by prescriber.Medication should be taken with plenty of water. Comment on above: Avoid prolonged or e xcessive exposure to direct and/or artificial sunlight while taking this medication.Check with your doctor before becoming .Do not take dairy products, antacids, or iron preparations within one hour of this medication.Finish all this medication unless otherwise directed by prescriber.Medication should be taken with plenty of water. Ethinyl Estradiol / Levonorgestrel (4 sources) Progestin, Estrogen, Progestin-containi ng Intrauterine Device Start: 08-11-2024 take 1 tablet by mouth once daily Aviane 0.1-20 mg-mcg tablet Take 1 tablet by mouth once daily. 08/11/2024 Active Start: 07-04-2024 End: 10-12-2024 take 1 tablet by mouth once daily Levonorgestrel-Ethinyl Estrad (Aviane) 0.1-20 mg-mcg tablet Discontinued 1 {tbl} PO daily 19 07July 04, 2024 12:00am October 12, 2024 8:57am Start: 07-04-2024 take 1 tablet by alejandra th once daily Levonorgestrel-Ethinyl Estrad (Aviane) 0.1-20 mg-mcg tablet Active 1 {tbl} PO daily July 04, 2024 12:00am Ethinyl Estradiol / Norgestrel (7 sources) Estrogen Start: 05-18-2004 LO/OVRAL-28 TA BLET Take one(1) tablet daily. 0 05/18/2004 Active Fiber (5 sources) Start: 12-23-2022 take 2 tablets by mouth once daily Fiber Active 2 TABLET PO DAILY December 22, 2022 11:00pm Start: 12-23-2022 take 2 tablets by mouth once d aily Fiber Active 2 TABLET PO DAILY December 23, 2022 12:00am hydrOXYzine hydrochloride 10 mg oral tablet (5 sources) Antihistamine Start: 11-21-2021 End: 10-29-2022 take 1-2 tablets by mouth twice daily as needed for anxiety hydrOXYzine HCL (Atarax) 10 mg tablet Take by mouth. may take 1-2 tablets twice daily as needed for stress/anxiety 0 11/21/2021 10/29/2022 Discontinued (Other) L.Acidoph, Paracasei,B. Lactis (16 sources) Start: 03-25-2019 L.Acidoph, Paracasei,B. Lactis Active 1 EACH PO DAILY March 25, 2019 11:27am Start: 03-25-2019 End: 09-06-2022 L.Acidoph, Paracasei,B. Lact is Discontinued 1 EACH PO DAILY March 25, 2019 12:00am September 06, 2022 3:20pm Start: 03-25-2019 End: 09-06-2022 L.Acidoph, Paracasei,B. Lact is Discontinued 1 EACH PO DAILY March 25, 2019 1:00am September 06, 2022 4:20pm Start: 03-25-2019 L.Acidoph, Par acasei,B. Lactis Active 1 EACH PO DAILY March 25, 2019 12:00am Start: 03-25-2019 L.Acidoph, Par acasei,B. Lactis Active 1 EACH PO DAILY March 25, 2019 1:00am lactobacillus acidophilus 1. 5 mg oral capsule (10 sources) Start: 12-23-2022 Lactobacillus Acidophilus (Probiotic Acidophilus) 250 million cell capsule Active 500 NMA PO DAILY December 23, 2022 12:00am take 1 capsule by mouth once jazmine ly Probiotic 1 capsule by mouth once a day lactobacillus acidophilus Loni Geronimo LPN methylPREDNISolone 4 mg oral tablet (17 sources) Corticosteroid Start: 10-21-2024 take 1 tablet by mouth once Methylprednisolone (Medrol (Emir)) 4 mg tablets,dose pack Active 4 mg PO per package directions 21 6 0 October 21, 2024 12:00am October 26, 2024 12:00am Start: 05-03-2022 End: 05-09-2022 take 1 tablet by mouth once Methylprednisolone (Medrol (Emir)) 4 mg tablets,dose pack Discontinued 4 mg PO per package directions 21 6 0 May 03, 2022 1:00am May 08, 2022 1:00am May 09, 2022 1:04am multivit-min/ferrous fumarat e (MULTI VITAMIN ORAL) (6 sources) multivit-min/yudelka letitia fumarate (MULTI VITAMIN ORAL) Multi Vitamin Oral Tablet Refills: 0 Active Active multivit-min/yudelka letitia fumarate (MULTI VITAMIN ORAL) Multi Vitamin Oral Tablet Refills: 0 Active 0 Active Multivitamin preparation (18 sources) Start: 10-24-2020 take 1 tablet by mouth once daily Multivitamin Active 1 TABLET PO DAILY October 24, 2020 8:53am Start: 10-24-2020 take 1 tablet by alejandra th once daily Multivitamin Active 1 TABLET PO DAILY October 23, 2020 11:00pm Start: 10-24-2020 take 1 tablet by alejandra th once daily Multivitamin Active 1 TABLET PO DAILY October 24, 2020 12:00am Multi Vitamin+ Q uantity: 0 Refills: 0 Ordered: 10-Dec-2022 Kerry Roth Generic Substitution Allowed take 1 tablet by alejandra th once daily MULTI-VITAMINS TABS 1 tablet by mouth once a day multivitamin [id number] Loni Geronimo BERNADETTE Multivitamin tablet (3 sources) Start: 10-24-2020 Multivitamin tablet Active 1 {tbl} PO DAILY October 24, 2020 12:00am Mupirocin (1 source) RNA Synthetase Inhibitor Antibacterial Start: 10-21-2024 Mupirocin (Centany) 2 % ointment Active 1 NMA TOPICAL THREE TIMES A DAY October 21, 2024 12:00am naproxen 500 mg oral tablet (10 sources) Nonsteroidal Anti-inflammatory Drug Start: 01-30-2021 End: 10-29-2022 take 1 tablet by mouth every twelve hours naproxen (Naprosyn) 500 mg tablet Take 1 tablet (500 mg) by mouth every 12 hours if needed. 0 01/30/2021 10/29/2022 Discontinued (Other) psyllium 400 mg oral capsule (8 sources) Start: 07-02-2023 Psyllium Husk (Daily Fiber) 0.4 gram capsule Active 0.8 g PO DAILY July 02, 2023 12:00am End: 08-30-2024 take 5 capsules by mouth four times daily psyllium (Metamucil) 0.4 gram capsule Take 5 capsules by mouth 4 times a day. 08/30/2024 Discontinued (Med List Cleanup) traMADol hydrochloride 50 mg oral tablet (4 sources) Opioid Agonist Start: 10-08-2024 End: 10-11-2024 take 1 tablet by mouth every six hours as needed for pain Tramadol 50 mg tablet Active 50 mg PO EVERY 6 HOURS NEEDED as needed for pain October 12, 2024 12:00am valACYclovir 1000 mg oral tablet (1 source) Herpesvirus Nucleoside Analog DNA Polymerase Inhibitor, Herpes Simplex Virus Nucleoside Analog DNA Polymerase Inhibitor, Herpes Zoster Virus Nucleoside Analog DNA Polymerase Inhibitor Start: 10-21-2024 Valacyclovir 1 gram tablet Active 1000 mg PO Q8H 21 7 0 October 21, 2024 12:00am October 27, 2024 12:00am WHEAT DEXTRIN (3 sources) take 1 tablet by mouth once daily wheat dextrin (BENEFIBER HEALTHY SHAPE ORAL) Take 1 tablet by mouth once daily. Active Completed/Discontinued Medications Medication Drug Class(es) Dates Sig (Normalized) Sig (Original) acetaminophen 325 mg / HYDROcodone bitartrate 5 mg oral tablet (4 sources) Opioid Agonist Start: 07-14-2023 End: 02-25-2024 Hydrocodone-Acetamino phen 5-325 mg tablet Discontinued 1 {tbl} PO EVERY 6 HOURS as needed for pain 6 2 0 July 14, 2023 February 25, 2024 1:23pm Cholelithiasis with chronic cholecystitis Calculus of gallbladder with chronic cholecystitis without obstruction Start: 07-14-2023 take 1 tablet by alejandra th every six hours Hydrocodone-Acetaminophen Active 1 TABLE T PO EVERY 6 HOURS 6 2 July 14, 2023 azithromycin 250 mg oral tablet (19 sources) Macrolide Antimicrobial Start: 03-18-2021 End: 01-22-2022 Azithromycin 250 mg tablet Discontinued 0 PO .COMPLEX 6 0 March 18, 2021 1:00am January 22, 2022 11:05am For 250 mg dose pack: take 500 mg today (day 1), then 250 mg for 4 days (days 2-5) PO Start: 03-18-2021 End: 01-22-2022 Azithromycin Discontinued 0 PO .COMPLEX 6 March 18, 2021 1:00am January 22, 2022 11:05am For 250 mg dose pack: take 500 mg today (day 1), then 250 mg for 4 days (days 2-5) PO cefdinir 300 mg oral capsule (3 sources) Cephalosporin Antibacterial Start: 10-12-2024 End: 10-21-2024 take 1 capsule by mouth every twelve hours Cefdinir 300 mg capsule Discontinued 300 mg PO Q12H 14 0 October 12, 2024 12:00am October 21, 2024 3:38pm Cholestyramine Resin (3 sources) Bile Acid Sequestrant Start: 07-18-2023 End: 12-30-2023 take 1 dose by mouth twice daily Cholestyramine (With Sugar) 4 gram powder Discontinued 4 g PO TWICE A DAY 378 0 July 18, 2023 12:00am December 30, 2023 3:34pm administer w/meal; avoid other meds within 1hr before or 4-6hr after dose Start: 07-18-2023 End: 12-30-2023 take 1 dose by mouth twice daily Cholestyramine (With Sugar) 4 gram powder Discontinued 4 g PO TWICE A DAY 378 July 18, 2023 12:00am December 30, 2023 3:34pm administer w/meal; avoid other meds within 1hr before or 4-6hr after dose Collagen Hydrolysate Powder (8 sources) End: 11-21-2021 Collagen Hydrolysate Powder Quantity: 0 Refills: 0 Ordered: 21-Nov-2021 DO End : 21-Nov-2021 Complete Collagen Hydroly sate Powder Quantity: 0 Refills: 0 Ordered: 31-Oct-2020 DO Active esomeprazole 40 mg delayed release oral capsule (20 sources) Proton Pump Inhibitor Start: 12-07-2020 End: 09-06-2022 take 1 capsule by mouth once daily Esomeprazole Magnesium (Nexium) 40 mg capsule,delayed release(DR/EC) Discontinued 40 mg PO DAILY 30 30 4 December 19, 2020 11:33am September 06, 2022 3:48pm famotidine 20 mg oral tablet (20 sources) Histamine-2 Receptor Antagonist Start: 11-29-2020 End: 12-01-2020 take 1 tablet by mouth twice daily Famotidine 20 mg Tablet Discontinued 20 mg PO TWICE A DAY November 29, 2020 12:00am December 01, 2020 10:37am Start: 10-31-2020 take 1 tablet by alejandra once daily as needed Famotidine 20 MG Oral Tablet TAKE 1 TABLET Daily prn Quantity: 30 Refills: 0 Ordered: 31-Oct-2020 Elvia Vaca Start : 31-Oct-2020 Active ibuprofen 600 mg oral tablet (19 sources) Nonsteroidal Anti-inflammatory Drug Start: 02-08-2020 End: 02-23-2020 take 1 tablet by mouth every six hours as needed for pain Ibuprofen 600 MG tablet Discontinued 600 mg PO EVERY 6 HOURS NEEDED as needed for Pain 30 0 February 08, 2020 1:00am February 23, 2020 12:48pm L.Acidoph,Parac asei,B.Animalis 1 EACH capsule (3 sources) Start: 03-25-2019 End: 09-06-2022 take 1 capsule by mouth once daily L.Acidoph,Paracase i,B.Animalis 1 EACH capsule Discontinued 1 NMA PO DAILY March 25, 2019 1:00am September 06, 2022 4:20pm supplement Start: 03-25-2019 End: 09-06-2022 take 1 capsule by mouth once daily L.Acidoph,Paracasei,B.Animalis 1 EACH ca psule Discontinued 1 NMA PO DAILY March 25, 2019 1:00am September 06, 2022 4:20pm linaclotide 0.072 mg oral capsule (8 sources) Guanylate Cyclase-C Agonist Start: 01-20-2023 End: 02-25-2024 take 1 capsule by mouth once daily in the morning Linaclotide (Linzess) 72 mcg capsule Discontinued 72 ug PO EVERY MORNING 30 January 20, 2023 12:00am February 25, 2024 1:23pm metroNIDAZOLE 500 mg oral tablet (5 sources) Nitroimidazole Antimicrobial Start: 10-12-2024 End: 10-21-2024 take 1 tablet by mouth every eight hours Metronidazole 500 mg tablet Discontinued 500 mg PO Q8H 21 7 0 October 12, 2024 12:00am October 21, 2024 3:38pm Start: 10-11-2024 metroNIDAZOLE 0.75 % cream Apply to affected area two times a day. 45 g 10/11/2024 Active Multi Vitamin Oral Tablet (8 sources) Multi Vitamin Or al Tablet Quantity: 0 Refills: 0 Ordered: 31-Oct-2020 DO Active nitrofurantoin, macrocrystals 25 mg / nitrofurantoin, monohydrate 75 mg oral capsule (20 sources) Nitrofuran Antibacterial Start: End: take 1 capsule by mouth twice daily at mealtime Nitrofurantoin Monohyd/M-Cryst (Macrobid) 100 mg capsule Discontinued 100 mg PO TWICE A DAY 14 7 0 October 13, 2019 4:09pm October 19, 2019 12:00am October 19, 2019 11:11am must administer with a meal/food omeprazole 40 mg delayed release oral capsule (19 sources) Proton Pump Inhibitor Start: End: take 1 capsule by mouth once daily Omeprazole 40 mg capsule,delayed release(DR/EC) Discontinued 40 mg PO DAILY 90 1 December 01, 2020 12:00am December 07, 2020 3:42pm pantoprazole 20 mg delayed release oral tablet (20 sources) Proton Pump Inhibitor Start: 06-06-2 024 End: take 1 tablet by mouth once daily pantoprazole (ProtoNix) 40 mg EC tablet Indications: Gastroesophageal reflux disease without esophagitis Take 1 tablet (40 mg) by mouth once daily. Do not crush, chew, or split. 08/28/2023 Active Start: 12-26-2022 End: 05-10-2024 take 1 tablet by mouth every twelve hours Pantoprazole 20 mg tablet,delayed release (DR/EC) Discontinued 20 mg PO Q12H 60 3 December 08, 2023 3:12pm May 10, 2024 10:24am take 1 tablet by alejandra th twice daily pantoprazole DR (PROTONIX) 20 mg tablet Take 20 mg by mouth two times a day. Active saccharomyces boulardii 250 mg oral capsule (4 sources) End: 08-30-2024 take 1 capsule by mouth twice daily saccharomyces boulardii (Florastor) 250 mg capsule Take 1 capsule (250 mg) by mouth 2 times a day. 08/30/2024 Discontinued (Med List Cleanup) sulfamethoxazole 800 mg / trimethoprim 160 mg oral tablet (19 sources) Dihydrofolate Reductase Inhibitor Antibacterial, Sulfonamide Antimicrobial Start: 10-13-2019 End: 10-19-2019 Sulfamethoxazole-T rimethoprim (Bactrim Ds) 800-160 mg tablet Discontinued 1 {tbl} PO TWICE A DAY 10 0 October 13, 2019 12:00am October 19, 2019 11:11am Problems Active Problems Problem Classification Problem Date Documented Da te Episodic/Chronic Abdominal pain (3 sources) Epigastric pain; Translations: [Epigastric pain] 06-25-2022 Episodic Anal and rectal conditions (20 sources) Rectal prolapse; Translations: [Rectal prolapse] Onset: 5 03-10-2024 Episodic Anxiety disorders (16 sources) Acute stress disorder; Translations: [Other acute reactions to stress] Onset: 3 06-24-2022 Chronic Biliary tract disease (7 sources) Calculus of gallbladder with cholecystitis; Translations: [Calculus of gallbladder with chronic cholecystitis without obstruction] 05-30-2023 Episodic Complications of surgical procedures or medical care (2 sources) Postprocedural infection; Translations: [Infection following a procedure, unspecified, initial encounter] Onset: 5 10-13-2024 Episodic Esophageal disorders (20 sources) Gastroesophageal reflux disease without esophagitis; Translations: [Gastro-esophageal reflux disease without esophagitis] Onset: 5 06-25-2022 Chronic Esophageal disorders (1 source) Esophageal disorders; Translations: [Gastro-esophageal reflux disease with esophagitis, without bleeding] Onset: 4 Genitourinary symptoms and ill-defined conditions (12 sources) Urinary frequency; Translations: [Blood in urine] Onset: 5 12-10-2022 Episodic Comment on above: URINARY FREQUENCY Miscellaneous mental health disorders (3 sources) Hypoactive sexual desire disorder; Translations: [Decreased libido] 01-28-2023 Chronic Nausea and vomiting (7 sources) Postoperative nausea and vomiting; Translations: [Nausea with vomiting, unspecified] Onset: 5 09-22-2024 Episodic Nonspecific chest pain (16 sources) Chest wall pain; Translations: [Other chest pain] 10-18-2020 Episodic Other acquired deformities (1 source) Spondylolisthesis, lumbar region; Translations: [Acquired spondylolisthesis] Onset: 2 06-04-2021 Episodic Other aftercare (1 source) Surgical follow-up; Translations: [Encounter for surgical aftercare following surgery on the digestive system] 10-13-2024 Episodic Other aftercare (1 source) Encounter for surgical aftercare following surgery on the digestive system; Translations: [Encounter for surgical aftercare following surgery on the digestive system] Onset: 5 Episodic Other connective tissue disease (19 sources) Pain in lower limb; Translations: [Pain in leg, unspecified] 10-02-2020 Episodic Other connective tissue disease (19 sources) Swelling of lower limb; Translations: [Other specified soft tissue disorders] 03-24-2019 Episodic Other diseases of veins and lymphatics (19 sources) Peripheral venous insufficiency; Translations: [Venous insufficiency (chronic) (peripheral)] 03-24-2019 Episodic Other female genital disorders (19 sources) Abnormal uterine bleeding; Translations: [Abnormal uterine and vaginal bleeding, unspecified] 02-08-2020 Chronic Other gastrointestinal disorders (1 source) Irritable bowel syndrome without diarrhea; Translations: [Irritable bowel syndrome, unspecified] Onset: 4 Chronic Other gastrointestinal disorders (19 sources) Swallowing painful; Translations: [Dysphagia, unspecified] 11-21-2020 Episodic Other gastrointestinal disorders (13 sources) Dysphagia; Translations: [Dysphagia, unspecified] 09-06-2022 Episodic Other gastrointestinal disorders (15 sources) Constipation; Translations: [Constipation, unspecified] 09-06-2022 Episodic Other gastrointestinal disorders (7 sources) Constipation, unspecified; Translations: [Constipation, unspecified] 09-06-2022 Episodic Other gastrointestinal disorders (7 sources) Dysphagia, unspecified; Translations: [Dysphagia, unspecified] 09-06-2022 Episodic Other gastrointestinal disorders (3 sources) Diarrhea; Translations: [Diarrhea, unspecified] 12-25-2023 Episodic Other gastrointestinal disorders (1 source) Other constipation; Translations: [Other constipation] Onset: 5 Episodic Other gastrointestinal disorders (1 source) Full incontinence of feces; Translations: [Full incontinence of feces] Onset: 5 Episodic Other nervous system disorders (1 source) Chronic low back pain; Translations: [Other chronic pain] 08-30-2024 Chronic Other nervous system disorders (2 sources) Other chronic pain; Translations: [Other chronic pain] Onset: 3 Chronic Other nervous system disorders (3 sources) Other acute postprocedural pain; Translations: [Other acute postoperative pain] Onset: 5 Episodic Other skin disorders (1 source) Disorder of skin; Translations: [Disorder of the skin and subcutaneous tissue, unspecified] 10-29-2022 Episodic Other upper respiratory infections (16 sources) Acute sinusitis; Translations: [Acute sinusitis, unspecified] 03-18-2021 Episodic Peripheral and visceral atherosclerosis (5 sources) Ischemic colitis; Translations: [Vascular disorder of intestine, unspecified] Onset: 5 03-10-2024 Chronic Prolapse of female genital organs (20 sources) Disorder of rectum; Translations: [Rectocele] 10-24-2020 Chronic Residual codes; unclassified (13 sources) Early satiety; Translations: [Early satiety] 09-06-2022 Episodic Residual codes; unclassified (5 sources) Early satiety; Translations: [Early satiety] 09-06-2022 Episodic Residual codes; unclassified (6 sources) Flushing; Translations: [Flushing] 06-30-2024 Episodic Residual codes; unclassified (1 source) Other specified postprocedural states; Translations: [Post-operative nausea and vomiting] Onset: Episodic Spondylosis; intervertebral disc disorders; other back problems (19 sources) Low back pain; Translations: [Lumbago] Onset: 3 06-24-2022 Episodic Sprains and strains (20 sources) Strain of tendon of lower back; Translations: [Strain of muscle, fascia and tendon of lower back, initial encounter] 04-23-2022 Episodic Varicose veins of lower extremity (20 sources) Varicose veins of lower extremity; Translations: [Asymptomatic varicose veins] Onset: 3 03-24-2019 Episodic Past or Other Problems Problem Classification Problem Date Documented Da te Episodic/Chronic Diseases of mouth; excluding dental (4 sources) Lesion of tongue; Translations: [Other diseases of tongue] Onset: 03-12-2024 03-12-2024 Episodic Intestinal obstruction without hernia (7 sources) Impaction of intestine; Translations: [Other impaction of intestine] Onset: 06-22-2004 07-20-2024 Episodic Other disorders of stomach and duodenum (15 sources) Indigestion; Translations: [Dyspepsia and other specified disorders of function of stomach] Onset: 06-24-2022 06-25-2022 Episodic Other gastrointestinal disorders (1 source) Diarrhea, unspecified; Translations: [Diarrhea, unspecified] Onset: 04-03-2024 Episodic Other gastrointestinal disorders (1 source) Slow transit constipation; Translations: [Slow transit constipation] Onset: 01-22-2024 Episodic Other screening for suspected conditions (not mental disorders or infectious disease) (19 sources) Bone finding; Translations: [Nonspecific (abnormal) findings on radiological and other examination of musculoskeletal system] Onset: 06-24-2022 06-24-2022 Episodic Residual codes; unclassified (1 source) Flushing; Translations: [Flushing] Onset: 07-05-2024 Episodic Unclassified (1 source) Problem Unclassified (18 sources) 4th degree tear in 10-22-2021 Unclassified (18 sources) sphincterplasty 10-22-2021 Comment on above: colorectal surgery 2 005 Unclassified (18 sources) vericose vein surgery 10-22-2021 Results Test Name Value Interpretation Reference Range Facility Urgent Care Visit Reporton 0 10-21-2024 Urgent Care Visit Report [facility] [address], [address] [place] [address] OFFICE VISIT Date of Service: 10/21/24 MR#: [id number] Acct: [id number] Name: LAISHA ROMERO Rep #: [id number] : 1980 Provider: MELIA Miller Age/Sex: 44/F Location: [facility] Status: Signed Intake Vital Signs 10/12/24 08:39 10/21/24 15:35 Height 5 ft 6 in BP 136/76 H Blood Pressure Location Rt brachial Position Sitting Respiration 17 Pulse 85 Pulse Source NIBP Temp 98.5 F Temp Source Oral Pulse Oximetry (%) 98 Oxygen Delivery Method room air Intake Visit Reasons: RASH UNDER NOSE Chief Complaint: nasal lesion Ota Required: No Is patient in pain?: Yes Allergies latex Allergy (Severe, Verified 10/21/24 15:36) Other nitrofurantoin (From Macrobid) Allergy (Intermediate, Verified 10/21/24 15:36) Nausea esomeprazole (From Nexium) Adverse Reaction (Intermediate, Verified 10/21/24 15:36) Other Medications ???Medication ???Instructions ???Recorded ???Confirmed ???Type multivitamin 1 tab PO DAILY 10/24/20 10/12/24 H istory Lactobacillus acidophilus 250 500 mmu cells PO DAILY 12/23/22 History million cell capsule (Probiotic Acidophilus) psyllium husk 0.4 gram capsule 0.8 g PO DAILY 07/02/23 10/12/24 H istory (Daily Fiber) pantoprazole 20 mg tablet,delayed 20 mg PO Q12H #60 tabs 05/10/24 0 10/12/24 Rx release tramadol 50 mg tablet 50 mg PO Q6H PRN PRN pain 10/12/24 10/12/24 History methylprednisolone 4 mg tablets in 4 mg PO PER PKG DIR 6 days #21 t abs 10/21/24 10/21/24 Rx a dose pack (Medrol (Emir)) mupirocin 2 % topical ointment 1 applic topical TID #22 grams 10/21/24 Rx (Centany) valacyclovir 1 gram tablet 1,000 mg PO Q8H 7 days #21 tabs 10/21/24 Rx Is last menstrual period known: No Post menopausal: No Patient : No Have you fallen in the past year?: No Nurse's Note: left nasal/labial lesion with significant pain x 48 hours and spreading into right side. denies bleeding/drainage or fever. hx of same which has resolved itself. pt under much more stress than normal and has had a surgical procedure with post operative infection just prior to lesion appearing. oral ATB complete, still using metronidazole cream as directed. [facility] Medical History Leg pain Leg swelling History of renal disease Shortness of breath on exertion Epigastric pain GERD (gastroesophageal reflux disease) Gastric reflux Wears glasses Loose, teeth Alcohol use Back pain History of diverticulitis Heartburn Former smoker History of pain when walking vericose vein surgery Surgical History History of esophagogastroduodenosco py (EGD) History of back surgery H/O spinal fusion Hx of vein stripping Hx of rectal sphincterotomy History of hysteroscopy H/O dilation and curettage 4th degree tear in sphincterplasty delivery delivered Family History Mother Diabetes Cancer renal cell carsinoma Social History Smoking Status: Former smoker alcohol intake: current details: social substance use type: does not use caffeine: Yes frequency: 1-2 times per week seatbelt use: always do you feel safe at home: Yes additional social history: - [employer] at [employer] HPI Chief Complaint: nasal lesion Details: LAISHA ROMERO, is a 44 F who presents to the office today for complaint of a rash under her nose mostly on the left side. Patient states that she noticed the painful and burning rash several days ago and has worsened. She denies fever, chills or sweats. No nausea, vomiting.. Patient does state that she has been on multiple antibiotics recently and has had increased stress. No other associated symptoms or alleviating/aggravating factors. ROS Const Constitutional: No other (6 system ROS completed with pertinent findings in the HPI otherwise normal.) Exam Const General: cooperative and healthy appearing [facility] Head: normocephalic and atraumatic Ears: hearing grossly normal bilaterally Face and sinus: normal facial exam and face symmetric Mouth: oral mucosae normal Throat: posterior oropharynx normal Other: Grouped vesicular lesions left nostril into the midline. Resp Auscultation: Bilateral: Clear to Auscultation Cardio Rate: regular rate Skin General: no rashes or lesions noted Neuro General: patient alert Psych Appearance: grossly normal Mental Status: mental status grossly normal Coding Level of Care Code Off vis,est,level 3 Diagnoses Shingles B02.9 Assessmen (more content not included)... [facility] Office Visit (FRANCY ) -------- LIZET ROMEROBEGLADIS Sandoval ([id number]) 1980 F Date Time Provider Department 10/13/24 11:30 AM LETICIA AYOUB During your visit today, we recorded the following information about you: Weight Height 67.6 kg 1.676 m Leticia Ayoub APRN.METALLURGICAL OR MATERIALS TECHNICIAN 10/13/2024 3:01 PM Signed COLORECTAL SURGERY PELVIC FLOOR POST OP VISIT Laisha A Nick is a 44 year old female who returns for a post-operative visit after undergoing exam under anesthesia, flexible sigmoidoscopy, mucopexy , perianal block, on 10/08/24. Patient was seen at her local ED yesterday and was put on oral Flagyl and Cefdinir. Patient reports swelling on the right side of her abdomen, and left side of her bottock. She got a CT scan done, unable to pull the records from this visit. Scan showed inflammation per patient, ED DrTatiana Wanted to julia the area however patient denied and wanted to try antibiotics first. She feels worse than before. She is tolerating diet with an improving appetite, stable weight, and energy level is worsening. She has no specific complaints, except that she was told that she would be fine by Friday and she was not. She had the concern that she was not doing well and she and feels that she was not responded to in an appropriate time frame. Patient was seen at her local ED yesterday and was put on oral Flagyl and Cefdinir. Patient reports swelling on the right side. She got a CT scan done, unable to pull the records from this visit. Scan showed inflammation per patient, ED DrTatiana Wanted to julia the area however patient denied and wanted to try antibiotics first. The patient returned to work six days after surgery but felt it was too soon due to her symptoms and was subsequently given additional time off. She reports that sitting, especially in a recliner or with pressure on her right buttock, worsens her swelling and tenderness, so she tries to avoid putting weight on that side. She describes her current pain as a 4 out of 10, characterized as raw and dull, with persistent tenderness and swelling in the right buttock. She continues to experience intermittent spasms and twinges in the area, but notes significant improvement today compared to the previous day. She has been wearing a panty liner to manage drainage. She reports frequent bowel movements since surgery, with incomplete evacuation and a sensation of stool getting stuck in the rectum. She began having bowel movements on Friday, with approximately five soft stools that day, and about four on Friday before contacting the nurse. She observes that her stool may be mixed with blood and mucus, and describes the appearance as weird looking. She reports a burning sensation and concern for possible urinary tract infection after using a sitz bath, which she began on Friday night. She does not take narcotics, preferring to avoid constipation. She recalls not experiencing a similar odor after prior reconstructive surgery (sphincter bulking), and expresses embarrassment about the current odor, but is relieved that it has improved with treatment. She lives in [place], approximately an hour [place] a half away, and traveled alone for this visit. She has not attended pelvic floor physical therapy due to distance and lack of local options. Current bowel related medications: None. Bowel movement frequency: multiple a day, patient reports not having complete bowel movements. She states she can have up to 10 per day however she is not completely evacuating and must return to the toilet multiple times prior to feeling empty. Do you get a good urge to defecate? yes Do you strain during defecation? Yes, mild straining intermittently. No recent fevers, chills, nausea, vomiting. ROS: Gastrointestinal: (+) perianal drainage with malodor, (+) perianal pain, (+) rectal spasms, (+) rectal incomplete evacuation, (+) increased bowel movement frequency, (+) perianal swelling Genitourinary: (+) dysuria Musculoskeletal: (+) right gluteal pain, (+) right gluteal swelling Skin: (+) perianal skin irritation CT from outside hospital pt self reported that there were no fluid collection identified, with marked bilateral inflammation noted, worse on the right. Unable to obtain the record. Current Outpatient Medications Medication Sig Dispense Refill cefdinir (OMNICEF) 300 mg capsule metroNIDAZOLE 0.75 % cream Apply to affected area two times a day. [address] (PROTONIX) 20 mg tablet Take 20 mg by mouth two times a day. LO/OVRAL-28 TABLET Take one(1) tablet daily. 0 No current facility-administered medications for this visit. ALLERGIES Allergen Reactions Latex internal Oxycodone Ht 167.6 cm (5' 6) Wt 67.6 kg (149 lb 0.5 oz) LMP 09/21/2024 (Exact Date) BMI 24.05 kg/m? Sensitive Exam: Abdominal examination: soft, non-distended, and non-ten (more content not included)... Normal [facility] Absolute lymphocyte countOrd ered By: Milton Vance on 10-12-2024 Lymphocytes Auto (Unsp spec) [#/Vol] 1.88 10*3/uL 0.83-4.51 [facility] Absolute neutrophil countOrd ered By: Milton Vance on 10-12-2024 Neutrophils (Bld) [#/Vol] 6.4 10*3/uL 2.0-7.7 [facility] Anion gap in Serum or Plasma Ordered By: Milton Vance on 10-12-2024 Anion gap [Moles/Vol] 12 mmol/L 5-15 [facility] Automated lymphocyte count a s percentage of total leukocytesOrdered By: Milton Pinky on 10-12-2024 Lymphocytes/100 WBC Auto (Unsp spec) 20.9 % 19-41 [facility] BUN/creatinine ratioOrdered By: Milton Pinky on 10-12-2024 Urea nitrogen/Creatinine [Mass ratio] 9.9 mg/mg Low 10-20 [facility] Basic Metabolic Profile (BMP )on 10-12-2024 BUN/CRE 9.9 RATIO Low 10-20 [facility] Comment on above: Performed By: #### L 100.0100, L500.2500 ####[facility] [address] [place], [address] Calcium [Mass/Vol] 9.9 mg/dL Normal 7.6-11.0 [facility] Comment on above: Performed By: #### L 100.0100, L500.2500 ####[facility] [address] [place], [address] Chloride [Moles/Vol] 101 mmol/L Normal 98-108 [facility] Comment on above: Performed By: #### L 100.0100, L500.2500 ####[facility] [address] [place], [address] CO2 [Moles/Vol] 23.2 mmol/L Normal 21.0-32.0 [facility] Comment on above: Performed By: #### L 100.0100, L500.2500 ####[facility] [address] [place], [address] Creatinine [Mass/Vol] 0.78 mg/dL Normal 0.70-1.20 [facility] Comment on above: Performed By: #### L 100.0100, L500.2500 ####[facility] [address] [place], [address] ECRCL 85.26 ml/min Normal 50-250 [facility] Comment on above: Performed By: #### L 100.0100, L500.2500 ####[facility] [address] [place], [address] GAP 12 Normal 5-15 [facility] Comment on above: Performed By: #### L 100.0100, L500.2500 ####[facility] [address] [place], [address] GFR/1.73 sq M.predicted among non-blacks MDRD (S/P/Bld) [Vol rate/Area] 96 mL/min/{1.73_m2} Normal >60 [facility] Comment on above: Result Comment: mL/m in/1.73m2 CKD-EPI Creatinine Equation (2020) Performed By: #### L 100.0100, L500.2500 ####[facility] [address] [place], [address] Glucose [Mass/Vol] 104 mg/dL High 70-99 [facility] Comment on above: Performed By: #### L 100.0100, L500.2500 ####[facility] [address] [place], [address] Potassium [Moles/Vol] 3.9 mmol/L Normal 3.3-5.1 [facility] Comment on above: Performed By: #### L 100.0100, L500.2500 ####[facility] [address] [place], [address] Sodium [Moles/Vol] 137 mmol/L Normal 133-145 [facility] Comment on above: Performed By: #### L 100.0100, L500.2500 ####[facility] [address] [place], [address] Urea nitrogen [Mass/Vol] 8 mg/dL Normal 4-19 [facility] Comment on above: Performed By: #### L 100.0100, L500.2500 ####[facility] [address] [place], [address] Basophil percentageOrdered B y: Milton Vance on 10-12-2024 Basophils/100 WBC (Bld) 0.4 % 0-1 [facility] CBC W/Diff, Automatedon 09-22 Absolute Lymph 1.88 X10 3/uL Normal 0.83-4.51 [facility] Comment on above: Performed By: #### L 100.0100, L500.2500 ####[facility] [address] [place], [address] Absolute Neut 6.4 X10 3/uL Normal 2.0-7.7 [facility] Comment on above: Performed By: #### L 100.0100, L500.2500 ####[facility] [address] [place], [address] Basophils/100 WBC (Bld) 0.4 % Normal 0-1 [facility] Comment on above: Performed By: #### L 100.0100, L500.2500 ####[facility] [address] [place], [address] Eosinophils/100 WBC (Bld) 0.9 % Normal 0-5 [facility] Comment on above: Performed By: #### L 100.0100, L500.2500 ####[facility] [address] [place], [address] Erythrocyte distribution width (RBC) [Ratio] 13.0 % Normal 11.6-14.6 [facility] Comment on above: Performed By: #### L 100.0100, L500.2500 ####[facility] [address] [place], [address] Hematocrit (Bld) [Volume fraction] 44.8 % Normal 37-47 [facility] Comment on above: Performed By: #### L 100.0100, L500.2500 ####[facility] [address] [place], [address] Hemoglobin (Bld) [Mass/Vol] 14.5 g/dL Normal 12.0-15.0 [facility] Comment on above: Performed By: #### L 100.0100, L500.2500 ####[facility] [address] [place], [address] IG% 0.300 Normal 0.0-0.9 [facility] Comment on above: Result Comment: IG% - Immature Granulocytes (promyelocytes, myelocytes and metamyelocytes) > 1% indicates that a LEFT SHIFT is Present. Performed By: #### L 100.0100, L500.2500 ####[facility] [address] [place], [address] Lymphocytes/100 WBC (Bld) 20.9 % Normal 19-41 [facility] Comment on above: Performed By: #### L 100.0100, L500.2500 ####[facility] [address] [place], [address] MCH (RBC) [Entitic mass] 29.5 pg Normal 27.0-32.0 [facility] Comment on above: Performed By: #### L 100.0100, L500.2500 ####[facility] [address] [place], [address] MCHC (RBC) [Mass/Vol] 32.4 g/dL Normal 32-36 [facility] Comment on above: Performed By: #### L 100.0100, L500.2500 ####[facility] [address] [place], [address] MCV (RBC) [Entitic vol] 91.2 fL Normal 81-99 [facility] Comment on above: Performed By: #### L 100.0100, L500.2500 ####[facility] [address] [place], [address] Monocytes/100 WBC (Bld) 6.8 % Normal 0-10 [facility] Comment on above: Performed By: #### L 100.0100, L500.2500 ####[facility] [address] [place], [address] Neutrophils/100 WBC (Bld) 70.7 % High 47-70 [facility] Comment on above: Performed By: #### L 100.0100, L500.2500 ####[facility] [address] [place], [address] Nucleated RBC (Bld) [#/Vol] 0 10*3/uL Normal 0-5 [facility] Comment on above: Performed By: #### L 100.0100, L500.2500 ####[facility] [address] [place], [address] Platelet mean volume (Bld) [Entitic vol] 9.1 fL Normal 6.2-12.0 [facility] Comment on above: Performed By: #### L 100.0100, L500.2500 ####[facility] [address] [place], [address] Platelets (Bld) [#/Vol] 292 10*3/uL Normal 150-450 [facility] Comment on above: Performed By: #### L 100.0100, L500.2500 ####[facility] [address] [place], [address] RBC (Bld) [#/Vol] 4.91 10*6/uL Normal 4.2-5.4 [facility] Comment on above: Performed By: #### L 100.0100, L500.2500 ####[facility] [address] [place], [address] RDW SD 43.5 fl Normal 35.1-43.9 [facility] Comment on above: Performed By: #### L 100.0100, L500.2500 ####[facility] [address] [place], [place], [address] WBC (Bld) [#/Vol] 9.0 10*3/uL Normal 4.4-11.0 [facility] Comment on above: Performed By: #### L 100.0100, L500.2500 ####[facility] [address] [place], [place], [address] CNPNon 10-12-2024 CNPN Telephone (FRANCY) -------- LAISHA ROMERO ([id number]) 1980 F Date Time Provider Department 10/12/24 CLARE MOBLEY During your visit today, we recorded the following information about you: [facility], Jazzy Derek 10/12/2024 8:15 AM Signed Laisha Romero [phone], experiencing rectal pain, burning with urination along with foul odor. Velma Wei, MARCO A 10/12/2024 10:03 AM Signed See response in MyChart communication that patient sent. Velma Wei RN Allergies As of Date: 10/12/2024 Noted Allergy Reaction LATEX 04/20/2004 Comments: internal OXYCODONE 04/20/2004 Date Reviewed: 10/08/2024 Reviewed by: Estephania Shelton, MARCO A - Fully Assessed Reason for Visit: Patient Update [1234] Prescriptions as of 10/12/2024 - metroNIDAZOLE 0.75 % cream Apply to affected area two times a day. - pantoprazole DR (PROTONIX) 20 mg tablet Take 20 mg by mouth two times a day. - LO/OVRAL-28 TABLET Take one(1) tablet daily. Problem List As Of Date 10/12/2024 Noted Resolved RECTAL AND ANAL DIS NEC [K62.89] 05/18/2004 IMPACTION INTESTINE NEC [K56.49] 06/22/2004 Post-operative nausea and vomiting [R11.2, Z98.*09/22/2024 Gastroesophageal reflux disease without esophag*09/22/2024 History of hydronephrosis [Z87.448] 09/22/2024 Encounter Status:Closed by JAZZY SWEENEY on 10/12/24 Normal [facility] Carbon dioxide, total [Moles /volume] in Central venous bloodOrdered By: Milton Vance on 10-12-2024 CO2 [Moles/Vol] 23.2 mmol/L 21.0-32.0 [facility] Chloride assayOrdered By: Juancho Vance on 10-12-2024 Chloride [Moles/Vol] 101 mmol/L 98-108 [facility] Emergency Department Summary on 10-12-2024 Emergency Department Summary [facility] Medical Records Department [address] [place] [address] Emergency Department Summary 10/12/24 MR#: [id number] Acct: [id number] Name: LAISHA ROMERO Rep #: [id number] : 1980 44 From: Milton Hughes PCP: Dr. Sonia Perez MD Status:DEP ER Location: ED HPI History of Present Illness Chief Complaint: Other, Pain/Inj Informant: patient Narrative Narrative: Increasing pain right perianal over 2 days. Status post Mucopexy 4 days ago at [facility] by Dr. Bravo. She is under general anesthesia. She is taking stool softeners. Over the last 2 days increasing pain with foul odor drainage. She has been using [id number] Tylenol therefore no fever or chills. She was treated for rectal prolapse. Abdominal surgeries include cholecystectomy and Anterior lumbar fusion. today notes some pain in the right lower pelvis region. Reported called her surgeon's office yesterday around 2 PM, was told to go to the office however she lives an hour away would not make it there in time. They sent in prescription topical Flagyl pending at her pharmacy. With increasing pain, she came here for evaluation. [facility] Medical History Leg pain Leg swelling History of renal disease Shortness of breath on exertion Epigastric pain GERD (gastroesophageal reflux disease) Gastric reflux Wears glasses Loose, teeth Alcohol use Back pain History of diverticulitis Heartburn Former smoker History of pain when walking vericose vein surgery Home Medications ???Medication ???Instructions ???Recorded ???Last Taken ???Type multivitamin 1 tab PO DAILY 10/24/20 10/11/24 H istory Lactobacillus acidophilus 250 500 mmu cells PO DAILY 12/23/22 History million cell capsule (Probiotic Acidophilus) psyllium husk 0.4 gram capsule 0.8 g PO DAILY 07/02/23 10/11/24 H istory (Daily Fiber) pantoprazole 20 mg tablet,delayed 20 mg PO Q12H #60 tabs 05/10/24 0 10/11/24 Rx release cefdinir 300 mg capsule 300 mg PO Q12H #14 caps 10/12/24 U nknown Rx metronidazole 500 mg tablet 500 mg PO Q8H 7 days #21 tabs 09/22 05/18 Unknown Rx tramadol 50 mg tablet 50 mg PO Q6H PRN PRN pain 10/12/24 Unknown History Allergy/AdvReac Type Severity Reaction Status Date / Time latex Allergy Severe Other Verified 10/12/24 08:42 nitrofurantoin (From Allergy Intermediate Nausea Verified 10/12/24 08:42 Macrobid) esomeprazole (From Nexium) AdvReac Intermediate Other Verified 10/12/24 08:42 Family History Mother Diabetes Cancer renal cell carsinoma Surgical History History of esophagogastroduodenosco py (EGD) History of back surgery H/O spinal fusion Hx of vein stripping Hx of rectal sphincterotomy History of hysteroscopy H/O dilation and curettage 4th degree tear in sphincterplasty delivery delivered Social History Smoking Status: Former smoker alcohol intake: current details: social substance use type: does not use caffeine: Yes frequency: 1-2 times per week seatbelt use: always do you feel safe at home: Yes additional social history: - [employer] at [employer] ROS ROS ED Constitutional Constitutional ED: Denies fever(s) Cardiovascular Cardiovascular: Denies chest pain Respiratory/Chest Respiratory/Chest: Denies cough Gastrointestinal Gastrointestinal: Reports abdominal pain and other Details: Rectal pain and drainage ; Denies diarrhea or vomiting Musculoskeletal Musculoskeletal: Denies none Integumentary Denies rash or wounds Neurologic Neurologic: Denies weakness EXAM Physical Exam Const Vital Signs: 10/12/24 08:39 10/12/24 08:41 10/12/24 09:41 Temperature 98.1 F 98.9 F 98.4 F Temperature Source Oral Oral Temporal Pulse Rate 76 65 76 Respiratory Rate 16 17 18 Respiratory Effort Respiratory Pattern Blood Pressure 149/94 H 125/76 H 134/74 H Blood Pressure Mean 112 92 94 Pulse Ox 100 100 98 Oxygen Delivery Method Room Air Room Air Room Air 10/12/24 09:41 10/12/24 11:00 10/12/24 11:33 Temperature 98.7 F 98.7 F Temperature Source Oral Pulse Rate 78 78 Respiratory Rate 16 16 Respiratory Effort Normal Respiratory Pattern Normal Blood Pressure 138/78 H 138/78 H Blood Pressure Mean 98 98 Pulse Ox 98 98 Oxygen Delivery Method Room Air Positive well nourished and well developed General Appearance ED: well developed and NAD HEENT Reports moist mucous membranes normocephalic and atraumatic Eyes General Eye ED: Yes normal appearance of both eyes Neck full ROM Chest Wa (more content not included)... Normal [facility] Eosinophil percentageOrdered By: Milton Vance on 10-12-2024 Eosinophils/100 WBC (Bld) 0.9 % 0-5 [facility] Erythrocyte distribution wid th ratioOrdered By: Milton Vance on 10-12-2024 Erythrocyte distribution width (RBC) [Ratio] 13.0 % 11.6-14.6 [facility] Erythrocyte distribution wid th standard deviationOrdered By: Milton Vance on 10-12-2024 Erythrocyte distribution width (RBC) [Ratio] 43.5 fl 35.1-43.9 [facility] Glomerular filtration rate ( GFR) estimation/1.73 sq m using serum, plasma, or whole bOrdered By: Milton Vance on 10-12-2024 GFR/1.73 sq M.predicted among non-blacks MDRD (S/P/Bld) [Vol rate/Area] 96 mL/min/{1.73_m2} >60 [facility] Comment on above: mL/min/1.73m2 CKD-EP I Creatinine Equation (2020) Hematocrit Auto (Bld) [Volum e fraction]Ordered By: Milton Vance on 10-12-2024 Hematocrit (Bld) [Volume fraction] 44.8 % 37-47 [facility] Hemoglobin measurementOrdere d By: Milton Vance on 10-12-2024 Hemoglobin (Bld) [Mass/Vol] 14.5 g/dL 12.0-15.0 [facility] Immature granulocytes/100 WB C Auto (Bld)Ordered By: Milton Vance on 10-12-2024 Immature granulocytes/100 WBC (Bld) 0.300 % 0.0-0.9 [facility] Comment on above: IG% - Immature Granu locytes (promyelocytes, myelocytes and metamyelocytes) > 1% indicates that a LEFT SHIFT is Present. MCV (mean corpuscular volume ) determinationOrdered By: Milton Vance on 10-12-2024 MCV (RBC) [Entitic vol] 91.2 fL 81-99 [facility] Mean corpuscular hemoglobin (MCH) determinationOrdered By: Milton Vance on 10-12-2024 MCH (RBC) [Entitic mass] 29.5 pg 27.0-32.0 [facility] Mean corpuscular hemoglobin concentration (MCHC) determinationOrdered By: Milton Vance on 10-12-2024 MCHC (RBC) [Mass/Vol] 32.4 g/dL 32-36 [facility] Mean platelet volume determi nationOrdered By: Milton Vance on 10-12-2024 Platelet mean volume (Bld) [Entitic vol] 9.1 fL 6.2-12.0 [facility] Monocyte percentageOrdered B y: Milton Vance on 10-12-2024 Monocytes/100 WBC (Bld) 6.8 % 0-10 [facility] Neutrophil percentageOrdered By: Milton Vance on 10-12-2024 Neutrophils/100 WBC (Bld) 70.7 % High 47-70 [facility] Nucleated red blood cell per centageOrdered By: Milton Vance on 10-12-2024 Nucleated RBC/100 WBC (Bld) [Ratio] 0 % 0-5 [facility] Pelvis WITH IV Contraston Pelvis WITH IV Contrast [facility] Imaging Services [address] [place] [address] Pelvis WITH IV Contrast MR#: [id number] Acct: [id number] Name: LAISHA ROMERO Rep #: [id number] : 1980 F 44 From: Ravi Vance MD PCP: Dr. Sonia Perez MD Status: REG ER Study: Pelvis WITH IV Contrast Date of Exam: 10/12/24 Exam# [id number] Ordering Dr: Milton Vance DO EXAM: CT Pelvis With Intravenous Contrast CLINICAL INDICATION: PERIRECTAL PAIN TECHNIQUE: Axial computed tomography images of the pelvis with intravenous contrast. This CT exam was performed using one or more of the following dose reduction techniques: automated exposure control, adjustment of the mA and/or kV according to patient size, and/or use of iterative reconstruction technique. COMPARISON: No relevant prior studies available. FINDINGS: BOWEL: Fecal retention in the colon consistent with constipation. Colonic diverticulosis without acute diverticulitis. No obstruction. APPENDIX: No findings to suggest acute appendicitis. INTRAPERITONEAL SPACE: Unremarkable. No free air. No significant fluid collection. BLADDER: Unremarkable. No mass. REPRODUCTIVE: Unremarkable as visualized. BONES/JOINTS: No acute fracture. No dislocation. SOFT TISSUES: Nonspecific fat stranding in the gluteal region, bilaterally may represent inflammation. However, no abscess or organized fluid collection. VASCULATURE: Unremarkable. No lower abdominal aortic aneurysm. LYMPH NODES: Unremarkable. No enlarged lymph nodes. CT/Pelvis WITH IV Contrast IMPRESSION: 1. Fecal retention in the colon consistent with constipation. 2. Colonic diverticulosis without acute diverticulitis. Reading Location: [facility] CC: Dr. Sonia Perez MD; Dr. Milton Vance DO Transfer Specialist: Signed Normal [facility] Platelet countOrdered By: Juancho Vance on 10-12-2024 Platelets (Bld) [#/Vol] 292 10*3/uL 150-450 [facility] Potassium measurement (mass/ volume)Ordered By: Milton Vance on 10-12-2024 Potassium (Unsp spec) [Mass/Vol] 3.9 mmol/L 3.3-5.1 [facility] RBC Auto (Bld) [#/Vol]Ordere d By: Milton Vance on 10-12-2024 RBC (Bld) [#/Vol] 4.91 10*6/uL 4.2-5.4 [facility] Serum creatinine measurement (mass/volume)Ordered By: Milton Vance on 10-12-2024 Creatinine [Mass/Vol] 0.78 mg/dL 0.70-1.20 [facility] Serum glucose measurement (m ass/volume)Ordered By: Milton Vance on 10-12-2024 Glucose [Mass/Vol] 104 mg/dL High 70-99 [facility] Serum or plasma calcium domenica urement (mass/volume)Ordered By: Milton Vance on 10-12-2024 Calcium [Mass/Vol] 9.9 mg/dL 7.6-11.0 [facility] Serum or plasma urea nitroge n measurement (mass/volume)Ordered By: Milton Vance on 10-12-2024 Urea nitrogen [Mass/Vol] 8 mg/dL 4-19 [facility] Sodium levelOrdered By: Milton Vance on 10-12-2024 Sodium [Moles/Vol] 137 mmol/L 133-145 [facility] White blood cell (WBC) count Ordered By: Milton Vance on 10-12-2024 WBC (Bld) [#/Vol] 9.0 10*3/uL 4.4-11.0 [facility] CNPNon 10-11-2024 GARYN Telephone (FRANCY) -------- LAISHA ROMERO ([id number]) 1980 F Date Time Provider Department 10/11/24 CLARE MOBLEY During your visit today, we recorded the following information about you: Jazzy Sweeney 10/11/2024 12:06 PM Signed Laisha Sandoval Azizamarnie [phone], have questions concerning foul odor from bottom. Velma Wei RN 10/11/2024 1:58 PM Signed SPECIALTY CARE COORDINATION FOLLOW-UP NOTE Provider Action/FYI Returned call to patient Patient identified by name and date of . YES Spoke to patient Summary: Having foul smelling odor from her bottom. States she can clean and wash several times and immediately after she still feels like she has not washed in a while. She is s/p EUA, flex sig and mucopexy on 10/08. Does feel like it is swelling/heavy and sore. She is very concerned that the odor is a sign that something is wrong and is very concerned with going back to work tomorrow with the odor. She was offered an appointment with DESPATCHING AND RECEIVING CLERK today to assess but she is unable to make it to [place]. She is very tearful and not sure how to proceed. She has noted some brownish/red tingned drainage but no fevers. CC recommended that she send us a photo of the area she feels is swollen and we can pass information on to Dr. Mobley. CC also recommended patient try sitz baths to help with hygiene and comfort, will send her photo of sitz bath in a Yashit message as she was unaware of what that is. CC also let patient know that one of our DESPATCHING AND RECEIVING CLERK's can see her this week if she wants to come in. CC let patient know if she has significant drainage, fevers, chills then she should present to the ED for evaluation. Concerns: Foul smell from bottom Group Practice Pediatrician plan for next outreach: Recommendations: Patient send photo in [place] of area in question. Use sitz bath TID and after bowel movement Present to ED if she has increased drainage, fevers, chill. Will follow up after discussing with Dr. Mobley Signature Velma Wei RN October 11, 2024 Allergies As of Date: 10/11/2024 Noted Allergy Reaction LATEX 04/20/2004 Comments: internal OXYCODONE 04/20/2004 Date Reviewed: 10/08/2024 Reviewed by: Estephania Shelton, MARCO A - Fully Assessed Reason for Visit: Patient Question [6367] Prescriptions as of 10/11/2024 - traMADol (ULTRAM) 50 mg tablet Take 1 tablet by mouth every 6 hours as needed for pain for up to 3 days. - pantoprazole DR (PROTONIX) 20 mg tablet Take 20 mg by mouth two times a day. - LO/OVRAL-28 TABLET Take one(1) tablet daily. Problem List As Of Date 10/11/2024 Noted Resolved RECTAL AND ANAL DIS NEC [K62.89] 05/18/2004 IMPACTION INTESTINE NEC [K56.49] 06/22/2004 Post-operative nausea and vomiting [R11.2, Z98.*09/22/2024 Gastroesophageal reflux disease without esophag*09/22/2024 History of hydronephrosis [Z87.448] 09/22/2024 Encounter Status:Closed by JAZZY SWEENEY on 10/11/24 [facility] ANES POSTPROC EVALon 025 ANES POSTPROC EVAL HNO ID: [id number] Author: BENJAMÍN TOLEDO DO Service: Anesthesiology Author Type: Anesthesiologist Type: Anesthesia Postprocedure Evaluation Filed: 10/08/2024 11:59 Note Text: POST ANESTHESIA EVALUATION NOTE : 1980 Procedure Summary Date: 10/08/24 Room / Location: [address] OR Anesthesia Start: 1019 Anesthesia Stop: 1048 Procedure: EXAM UNDER ANESTHESIA RECTAL MUCOPEXY (Anus) Diagnosis: Rectal prolapse (Rectal prolapse [K62.3]) Surgeons: Clare Mobley DO Responsible Provider: Benjamín Toledo DO Anesthesia Type: MAC ASA Status: 2 Anesthesia Type: MAC Last Vitals Vitals Value Taken Time BP 124/83 10/08/24 1115 Temp 36.4 ?C (97.5 ?F) 10/08/24 1050 Pulse 68 10/08/24 1118 Respiratory Rate (Per End Tidal CO2) 14 10/08/24 1050 SpO2 98 % 10/08/24 1118 Vitals shown include unfiled device data. Post Anesthesia Patient Status Patient Evaluation: PACU. PACU/ICU Patient Condition: stable. Anticipated Disposition: phase 2 then home. Neurological Status: aware and responsive. Pulmonary Status: breathing comfortably on supplemental oxygen Airway Control: returned to baseline unsupported. Cardiovascular Status: stable. Pain Management: clinically adequate Postoperative Hydration: acceptable. Intraoperative Events: no significant anesthesia events Post Operative Nausea/Vomiting Status: no significant post operative nausea or vomiting Recommendation: continue current plan of care. Anesthesia Observations No Documentation SIGNATURE: Benjamín Toledo DO PATIENT NAME: Laisha Romero DATE: October 08, 2024 TIME: 11:58 AM CSN: [id number] Normal [facility] ANES PRE-OPon 10-08-2024 ANES PRE-OP HNO ID: [id number] Author: BENJAMÍN TOLEDO DO Service: Anesthesiology Author Type: Anesthesiologist Type: Anesthesia Preprocedure Evaluation Filed: 10/08/2024 09:28 Note Text: ANESTHESIOLOGY DAY OF SURGERY NOTE : 1980 Procedure Information Date/Time: 10/08/24 1005 Procedures: EXAM UNDER ANESTHESIA RECTAL (Anus) SIGMOIDOSCOPY FLEXIBLE (Colon Sigmoid) ULTRASOUND TRANSRECTAL (Anus) Location: [address] OR Surgeons: Clare Mobley DO Estimated body mass index is 23.84 kg/m? as calculated from the following: Height as of 09/22/24: 167.6 cm (5' 6). Weight as of 09/22/24: 67 kg (147 lb 11.3 oz). Most recent hematocrit and potassium results: Hematocrit 38.0 05/24/2004 Potassium 4.3 05/24/2004 Relevant Problems ANESTHESIA (+) Post-operative nausea and vomiting GI (+) Gastroesophageal reflux disease without esophagitis NEURO-PSYCH (+) History of hydronephrosis I - PHYSICAL EVALUATION AIRWAY Patient intubated: No. Tracheostomy tube not present Mallampati: II. TM distance: >3 FB. Neck ROM: full ROM without neurological symptoms. Mouth opening: adequate. Short neck: no. Thick neck: no DENTAL Dental findings: teeth intact. Additional exam findings: yes. CARDIOVASCULAR Rhythm: regular Rate: normal PULMONARY Breath sounds clear to auscultation. II - ANESTHESIA PLAN ASA Score: 2 Anesthetic Plan: MAC The patient is not a current smoker. NPO Status: adequate Beta Kya Monitoring Plan Monitoring plan: standard ASA. Post Procedure Analgesic Plan Postoperative analgesic plan: parenteral or oral opioids and per surgical service. Informed Consent Anesthetic risks, benefits, alternatives, personnel and consent discussed: yes. Patient / Responsible Constitution Party agrees to proceed: yes Patient / Surrogate agrees to blood products: Yes Significant changes in the patient condition since the History and Physical, not otherwise documented in primary service progress note: no. Potential Anesthesia issues that may suggest increased risk of complications or contraindication to planned procedure: none. No vitals data found for the desired time range. Facility-Administered Medications as of 10/08/2024 Medication Dose Route Frequency acetaminophen 1,000 mg tab(s) (TYLENOL) 1,000 mg ORAL Pre-Op Once promethazine 12.5 mg tab(s) (PHENERGAN) 12.5 mg ORAL Pre-Op Once Outpatient Medications as of 10/08/2024 Medication Sig LO/OVRAL-28 TABLET Take one(1) tablet daily. I have interviewed and examined the patient. I have reviewed the medical record and/or the pre-anesthesia evaluation, pertinent labs, and test results. This contains updated information obtained within 48 hours of Surgery/Procedure. SIGNATURE: Benjamín Toledo DO PATIENT NAME: Laisha Romero DATE: October 08, 2024 TIME: 9:27 AM CSN: [id number] [facility] CNCOon 10-08-2024 CNCO Letter Text Letter Text [facility] HISTORY PHYSICALon HISTORY PHYSICAL HNO ID: [id number] Author: CLARE MOBLEY DO Service: Colorectal Author Type: Physician Type: H&P Filed: 10/08/2024 10:12 Note Text: UPDATED HISTORY AND PHYSICAL EXAMINATION SERVICE DATE: 10/08/2024 SERVICE TIME: 10:11 AM PHYSICAL EXAM MUST BE COMPLETED ON ADMISSION The History and Physical (completed in the past 30 days) has been reviewed and the patient has been examined. The contents accurately reflect the patient's condition with the following additions or revisions since the HANDP was completed. Examination indicates no changes. This HANDP can be found in the attached. SIGNATURE: Clare Mobley DO PATIENT NAME: Laisha Romero DATE: October 08, 2024 TIME: 10:11 AM Normal [facility] OPERATIVE NOon 07-18-2025 OPERATIVE NO HNO ID: [id number] Author: CLARE MOBLEY DO Service: Colorectal Author Type: Physician Type: Operative Report Filed: 10/08/2024 10:52 Note Text: OPERATIVE REPORT LOG ID: [id number] SURGERY DATE: 10/08/2024 INCISION/PROCEDURE START TIME: INCISION CLOSE/PROCEDURE END TIME: PREOPERATIVE DIAGNOSIS: mucosal rectal prolapse POSTOPERATIVE DIAGNOSIS: mucosal rectal prolapse OPERATION PERFORMED: exam under anesthesia, flexible sigmoidoscopy, mucopexy , perianal block SURGEON: Clare Mobley DO ANESTHESIA: MAC INDICATIONS: 44 yo woman with mucosal prolapse presents for exam under anesthesia and mucopexy OPERATIVE FINDINGS: 1 mm vaginal mucosal fistula tract , not infected, an incidental finding. 2 cm musocal prolapse in the right lateral position , mucopexy performed with 3-0 vicryl suture. Normal flexible sigmoidocopy , scope advance to distal sigmoid PROCEDURE IN DETAIL: After informed consent was performed the patient was annie to the operating room and positioned in lithotomy after anesthesia was induced . Flexible sigmoidoscopy was carried out. On anoscopy 2 cm mucosal prolapse was noted. A stitch proximal to lead point of prolapse was placed and additional 3advancing distally, this was then synched therefore pexing the prolapse. This was done in 2 spots in the right lateral position . Patient tolerated procedure well. Perianal block was performed with 20 ml of 0.25 % marcaine. ESTIMATED BLOOD LOSS: minimal SPECIMENS: None IMPLANTED DEVICES: NONE DRAINS: None COMPLICATIONS: None Clare Mobley DO PARTICIPATION IN SURGERY PROCEDURE: I/primary surgeon/proceduralist performed the procedure with assistance. PATIENT NAME: Laisha Romero Normal [facility] HISTORY PHYSICALon HISTORY PHYSICAL HNO ID: [id number] Author: SLAVA MARIN APRN.METALLURGICAL OR MATERIALS TECHNICIAN Service: ? Author Type: Nurse Practitioner Type: H&P Filed: 09/22/2024 11:14 Note Text: [facility] HISTORY AND PHYSICAL EXAMINATION SERVICE DATE: 09/22/2024 SERVICE TIME: 11:14 AM PRIMARY CARE PHYSICIAN: Sonia Garza APRN, KRISTOFER Assessment Patient has the following medical conditions which may affect neptali-operative course: Post-operative nausea and vomiting Assessment: Reports from prior procedures. Requesting antiemetics for control of N/V. Gastroesophageal reflux disease without esophagitis Assessment: Controlled on Protonix. Advised avoidance of triggers. Following with PCP. History of hydronephrosis Assessment: Reports she was diagnosed with acute renal failure with no cause prior to . During , developed hydronephrosis. Patient had multiple surgeries r/t stent malfunctions. Denies any new or worsening symptoms. Followed up with urology in the past. Denies any oswald=hematuria, dysuria, frequency, urgency, or flank pain. ANESTHESIA FINDINGS: Intubation History: No history of difficult intubation. No abnormal airway history Significant Anesthesia Considerations: potential postop nausea/vomiting Airway History: No history of difficult airway No abnormal airway history Marrero Activity Status Index: METS: Walk indoors, such as around the house (1.75 METs) Do light work around the house, such as dusting or washing dishes (2.70 METs) Take care of self; that is eating, dressing, bathing, using the toilet (2.75 METs) Walk a block or two on level ground (2.75 METs) Do moderate work around the house, such as vacuuming, sweeping floors, or carrying in groceries (3.50 METs) Climb a flight of stairs or walk up a hill (5.50 METs) DASI Score: 18.95 Patient denies any chest pain or undue shortness of breath with the above physical activity. Clinical Frailty Scale: 2. Well STOP-Bang Score: Denies snoring loudly Denies feeling tired, fatigued, or sleepy during the daytime Has not been observed to stop breathing or choking/gasping during sleep Denies having high blood pressure BMI less than or equal to 35 kg/m2 Patient 50 years old or younger Does not have a large neck Non-male patient STOP-Bang Score: 0 I - PHYSICAL EVALUATION AIRWAY Patient intubated: No. Tracheostomy tube not present Mallampati: II. TM distance: >3 FB. Neck ROM: full ROM without neurological symptoms. Mouth opening: adequate. Short neck: no. Thick neck: no DENTAL Dental findings: teeth intact. II - ANESTHESIA PLAN Anesthetic plan additional comments: *PACC/TCI - anesthesia choice. Beta Kya Monitoring Plan Post Procedure Analgesic Plan Prepared for Surgery: optimally prepared for surgery. CONSULTS: Patient does not require consults for optimization at this time Planned Anesthetic: anesthesia choice The Following Tests/Procedures Have Been Initiated: Orders Placed This Encounter pantoprazole DR (PROTONIX) 20 mg tablet Sig: Take 20 mg by mouth two times a day. REASON FOR VISIT: Laisha Romero is a 44 year old female who is scheduled for Procedure(s): EXAM UNDER ANESTHESIA RECTAL (N/A) SIGMOIDOSCOPY FLEXIBLE (N/A) ULTRASOUND TRANSRECTAL (N/A) at the request of Dr. Clare Mobley for consultation. My final recommendation will be communicated back to the requesting physician by way of shared medical record or letter. Subjective The patient has the following: COVID-19 Immunization Status Current Care Gaps Covid-19 Vaccine () Never done No completion, postpone, frequency change, or communication history exists for this topic. CHIEF COMPLAINT: pre op HPI: Patient is a 44 year old female scheduled for pre anesthesia consultation for procedure on 10/08/2024 at [facility]. REVIEW OF SYSTEMS: General: No weight loss, malaise or fevers. Neurological: Negative for: delirium, dementia, headaches, impaired sensorium, peripheral neuropathy, seizures, TIA and strokes. Respiratory: Negative for: asthma, bronchitis, COPD, current cough, bronchodilator used daily for the last 3 months, dyspnea, home oxygen, orthopnea, pneumonia within 6 weeks, tobacco use, URI < 2 weeks and obstructive sleep apnea. Cardiovascular: Negative for: abdominal aortic aneurysm, AICD/PPM, angina, anticoagulation therapy, arrhythmia, atrial fibrillation, CAD, chest pain, CHF, congenital heart defect, DVT/PE, hyperlipidemia, hypertension, recent AL, murmur/valvular heart disease, PTCA, PVD, open heart surgery and valve surgery. GI: Positive for: GERD Negative for: abdominal pain, GI bleed <30 days, hepatitis, liver disease, nausea, vomiting and ETOH >2 drinks/day. : denies CKD Negative for: on dialysis, dysuria, flank pain, frequent urination, hematuria, renal failure and urinary tract infection. Endocrine: (more content not included)... Normal [facility] RF Gastrointestinal tract up per Views W water soluble contrast Mayito 09-10-2024 IMPRESSION: CINEDEFECOGRAPHY DESCRIBED -- SEE SYNOPTIC REPORT FOR DETAILS. Transfer Specialist: MILTON Transcribe Date/Time: Sep 10 2024 9:36A Dictated by : JOSHUA GARCIA MD This examination was interpreted and the report reviewed and electronically signed by: JOSHUA GARCIA MD on Sep 10 2024 9:39AM [facility] DIVISION OF RADIOLOGY * * *Final Report* * * DATE OF EXAM: Sep 10 2024 9:19AM HGX 5387 - XR DEFECOGRAPHY / PROCEDURE REASON: Rectal prolapse * * * * Physician Interpretation * * * * CINEDEFECOGRAPHY CLINICAL HISTORY: Rectal prolapse TECHNIQUE: Cinedefecography was performed with vaginal, enteric, and rectal contrast. Recorded real-time fluoroscopy and spot imaging were used, including the following maneuvers: rest, squeeze, strain, evacuation, and post-evacuation. Contrast: ORAL: 500 ml of EZPAQUE RECTAL: 250 ml of EZPAQUE RECTAL: 120 ml of VARIBAR PUDDING Fluoroscopy radiation summary: Fluoroscopy time: 1:30 (min:sec). Air kerma: 43.6 mGy. COMPARISON: None RESULT: Initiation and ease of evacuation: Difficult and slow Change in anorectal angle during defecation: Partial straightening Development of rectocele: No rectocele. Widening of rectovaginal septum: Enterocele: None Sigmoidocele: None Rectal intussusception: None Post-evacuation recoil: Normal recoil to original position Vaginal length/support: Maintained length and support DIVISION OF RADIOLOGY Provider, [facility] - 09/10/2024 * * *Final Report* * * DATE OF EXAM: Sep 10 2024 9:19AM HGX 5387 - XR DEFECOGRAPHY / PROCEDURE REASON: Rectal prolapse * * * * Physician Interpretation * * * * CINEDEFECOGRAPHY CLINICAL HISTORY: Rectal prolapse TECHNIQUE: Cinedefecography was performed with vaginal, enteric, and rectal contrast. Recorded real-time fluoroscopy and spot imaging were used, including the following maneuvers: rest, squeeze, strain, evacuation, and post-evacuation. Contrast: ORAL: 500 ml of EZPAQUE RECTAL: 250 ml of EZPAQUE RECTAL: 120 ml of VARIBAR PUDDING Fluoroscopy radiation summary: Fluoroscopy time: 1:30 (min:sec). Air kerma: 43.6 mGy. COMPARISON: None RESULT: Initiation and ease of evacuation: Difficult and slow Change in anorectal angle during defecation: Partial straightening Development of rectocele: No rectocele. Widening of rectovaginal septum: Enterocele: None Sigmoidocele: None Rectal intussusception: None Post-evacuation recoil: Normal recoil to original position Vaginal length/support: Maintained length and support IMPRESSION IMPRESSION: CINEDEFECOGRAPHY DESCRIBED -- SEE SYNOPTIC REPORT FOR DETAILS. Transfer Specialist: MILTON Transcribe Date/Time: Sep 10 2024 9:36A Dictated by : JOSHUA GARCIA MD This examination was interpreted and the report reviewed and electronically signed by: JOSHUA GARCIA MD on Sep 10 2024 9:39AM EST [facility] Radiology Study observation (narrative) [facility] RF Gastrointestinal tract up per Views W water soluble contrast POOrdered By: [facility] Provider on 09-10-2024 [facility] XR DEFECOGRAPHYon 09-10-2024 XR DEFECOGRAPHY * * *Final Report* * * DATE OF EXAM: Sep 10 2024 9:19AM HGX 5387 - XR DEFECOGRAPHY / PROCEDURE REASON: Rectal prolapse * * * * Physician Interpretation * * * * CINEDEFECOGRAPHY CLINICAL HISTORY: Rectal prolapse TECHNIQUE: Cinedefecography was performed with vaginal, enteric, and rectal contrast. Recorded real-time fluoroscopy and spot imaging were used, including the following maneuvers: rest, squeeze, strain, evacuation, and post-evacuation. Contrast: ORAL: 500 ml of EZPAQUE RECTAL: 250 ml of EZPAQUE RECTAL: 120 ml of VARIBAR PUDDING Fluoroscopy radiation summary: Fluoroscopy time: 1:30 (min:sec). Air kerma: 43.6 mGy. COMPARISON: None RESULT: Initiation and ease of evacuation: Difficult and slow Change in anorectal angle during defecation: Partial straightening Development of rectocele: No rectocele. Widening of rectovaginal septum: Enterocele: None Sigmoidocele: None Rectal intussusception: None Post-evacuation recoil: Normal recoil to original position Vaginal length/support: Maintained length and support IMPRESSION: CINEDEFECOGRAPHY DESCRIBED -- SEE SYNOPTIC REPORT FOR DETAILS. Transfer Specialist: MILTON Transcribe Date/Time: Sep 10 2024 9:36A Dictated by : JOSHUA GARCIA MD This examination was interpreted and the report reviewed and electronically signed by: JOSHUA GARCIA MD on Sep 10 2024 9:39AM EST [id number] Normal [facility] Absolute lymphocyte countOrd ered By: HEALTH ASSESSMENT on 09-08-2024 Lymphocytes Auto (Unsp spec) [#/Vol] 1.98 10*3/uL 0.83-4.51 [facility] Absolute neutrophil countOrd ered By: HEALTH ASSESSMENT on 09-08-2024 Neutrophils (Bld) [#/Vol] 4.1 10*3/uL 2.0-7.7 [facility] Absolute nucleated red blood cell countOrdered By: HEALTH ASSESSMENT on 09-08-2024 Nucleated RBC (Bld) [#/Vol] 0.00 10*3/uL 0-5 [facility] Anion gap in Serum or Plasma Ordered By: HEALTH ASSESSMENT on 09-08-2024 Anion gap [Moles/Vol] 14 mmol/L 5-15 [facility] BUN/creatinine ratioOrdered By: HEALTH ASSESSMENT on 09-08-2024 Urea nitrogen/Creatinine [Mass ratio] 13.6 mg/mg 10-20 [facility] Bilirubin directOrdered By: HEALTH ASSESSMENT on 09-08-2024 Bilirubin.direct [Mass/Vol] 0.19 mg/dL 0.00-0.30 [facility] Bilirubin, totalOrdered By: HEALTH ASSESSMENT on 09-08-2024 Bilirubin [Mass/Vol] 0.38 mg/dL 0.00-1.30 [facility] Blood band neutrophil count as percentage of total leukocytesOrdered By: HEALTH ASSESSMENT on 09-08-2024 Band form neutrophils/100 WBC (Bld) 62.6 % 47-70 [facility] CBC, Employeeon 09-08-2024 Absolute Lymph 1.98 X10 3/uL Normal 0.83-4.51 [facility] Comment on above: Performed By: #### L 100.0200, L500.2900, L400.0100 ####[facility] [address] [place], [place], [id number] Absolute Neut 4.1 X10 3/uL Normal 2.0-7.7 [facility] Comment on above: Performed By: #### L 100.0200, L500.2900, L400.0100 ####[facility] [address] [place], [address] Basophils/100 WBC (Bld) 0.3 % Normal 0-1 [facility] Comment on above: Performed By: #### L 100.0200, L500.2900, L400.0100 ####[facility] [address] [place], [address] Eosinophils/100 WBC (Bld) 0.8 % Normal 0-5 [facility] Comment on above: Performed By: #### L 100.0200, L500.2900, L400.0100 ####[facility] [address] [place], [address] Erythrocyte distribution width (RBC) [Ratio] 13.2 % Normal 11.6-14.6 [facility] Comment on above: Performed By: #### L 100.0200, L500.2900, L400.0100 ####[facility] [address] [place], [address] Hematocrit (Bld) [Volume fraction] 40.7 % Normal 37-47 [facility] Comment on above: Performed By: #### L 100.0200, L500.2900, L400.0100 ####[facility] [address] [place], [address] Hemoglobin (Bld) [Mass/Vol] 13.2 g/dL Normal 12.0-15.0 [facility] Comment on above: Performed By: #### L 100.0200, L500.2900, L400.0100 ####[facility] [address] [place], [address] Lymphocytes/100 WBC (Bld) 30.0 % Normal 19-41 [facility] Comment on above: Performed By: #### L 100.0200, L500.2900, L400.0100 ####[facility] [address] [place], [address] MCH (RBC) [Entitic mass] 29.7 pg Normal 27.0-32.0 [facility] Comment on above: Performed By: #### L 100.0200, L500.2900, L400.0100 ####[facility] [address] [place], [address] MCHC (RBC) [Mass/Vol] 32.4 g/dL Normal 32-36 [facility] Comment on above: Performed By: #### L 100.0200, L500.2900, L400.0100 ####[facility] [address] [place], [address] MCV (RBC) [Entitic vol] 91.5 fL Normal 81-99 [facility] Comment on above: Performed By: #### L 100.0200, L500.2900, L400.0100 ####[facility] [address] [place], [address] Monocytes/100 WBC (Bld) 6.1 % Normal 0-10 [facility] Comment on above: Performed By: #### L 100.0200, L500.2900, L400.0100 ####[facility] [address] [place], [address] Neutrophils/100 WBC (Bld) 62.6 % Normal 47-70 [facility] Comment on above: Performed By: #### L 100.0200, L500.2900, L400.0100 ####[facility] [address] [place], [address] NRBC # 0.00 10 3/uL Normal 0-5 [facility] Comment on above: Performed By: #### L 100.0200, L500.2900, L400.0100 ####[facility] [address] [place], [address] Nucleated RBC (Bld) [#/Vol] 0 10*3/uL Normal 0-5 [facility] Comment on above: Performed By: #### L 100.0200, L500.2900, L400.0100 ####[facility] [address] [place], [address] Platelet mean volume (Bld) [Entitic vol] 9.6 fL Normal 6.2-12.0 [facility] Comment on above: Performed By: #### L 100.0200, L500.2900, L400.0100 ####[facility] [address] [place], [address] Platelets (Bld) [#/Vol] 306 10*3/uL Normal 150-450 [facility] Comment on above: Performed By: #### L 100.0200, L500.2900, L400.0100 ####[facility] [address] [place], [address] RBC (Bld) [#/Vol] 4.45 10*6/uL Normal 4.2-5.4 [facility] Comment on above: Performed By: #### L 100.0200, L500.2900, L400.0100 ####[facility] [address] [place], [address] RDW SD 44.5 fl High 35.1-43.9 [facility] Comment on above: Performed By: #### L 100.0200, L500.2900, L400.0100 ####[facility] [address] [place], [address] WBC (Bld) [#/Vol] 6.6 10*3/uL Normal 4.4-11.0 [facility] Comment on above: Performed By: #### L 100.0200, L500.2900, L400.0100 ####[facility] [address] [place], [place], [id number] Calculated very low density lipoprotein (VLDL) cholesterol measurementOrdered By: HEALTH ASSESSMENT on 09-08-2024 Calculated very low density lipoprotein (VLDL) cholesterol measurement 20 mg/dL 5-40 [facility] Carbon dioxide, total [Moles /volume] in Central venous bloodOrdered By: HEALTH ASSESSMENT on 09-08-2024 CO2 [Moles/Vol] 20.8 mmol/L Low 21.0-32.0 [facility] Chloride assayOrdered By: HE ALTH ASSESSMENT on 09-08-2024 Chloride [Moles/Vol] 105 mmol/L 98-108 [facility] Employee Profileon LDH 236 U/L Normal 84-246 [facility] Comment on above: Performed By: #### L 100.0200, L500.2900, L400.0100 ####[facility] [address] [place], [place], [address] Erythrocyte distribution wid th ratioOrdered By: HEALTH ASSESSMENT on 09-08-2024 Erythrocyte distribution width (RBC) [Ratio] 13.2 % 11.6-14.6 [facility] Erythrocyte distribution wid th standard deviationOrdered By: HEALTH ASSESSMENT on 09-08-2024 Erythrocyte distribution width (RBC) [Ratio] 44.5 fl High 35.1-43.9 [facility] Glomerular filtration rate ( GFR) estimation/1.73 sq m using serum, plasma, or whole bOrdered By: HEALTH ASSESSMENT on 09-08-2024 GFR/1.73 sq M.predicted among non-blacks MDRD (S/P/Bld) [Vol rate/Area] 102 mL/min/{1.73_m2} >60 [facility] Comment on above: mL/min/1.73m2 CKD-EP I Creatinine Equation (2020) Hematocrit Auto (Bld) [Volum e fraction]Ordered By: HEALTH ASSESSMENT on 09-08-2024 Hematocrit (Bld) [Volume fraction] 40.7 % 37-47 [facility] Hemoglobin measurementOrdere d By: HEALTH ASSESSMENT on 09-08-2024 Hemoglobin (Bld) [Mass/Vol] 13.2 g/dL 12.0-15.0 [facility] Laboratory - Chemistry and C hemistry - challengeOrdered By: HEALTH ASSESSMENT on 09-08-2024 AST [Catalytic activity/Vol] 19 U/L <32 [facility] Lactate dehydrogenase (LDH) measurementOrdered By: HEALTH ASSESSMENT on 09-08-2024 LDH [Catalytic activity/Vol] 236 U/L 84-246 [facility] MCV (mean corpuscular volume ) determinationOrdered By: HEALTH ASSESSMENT on 09-08-2024 MCV (RBC) [Entitic vol] 91.5 fL 81-99 [facility] Mean corpuscular hemoglobin (MCH) determinationOrdered By: HEALTH ASSESSMENT on 09-08-2024 MCH (RBC) [Entitic mass] 29.7 pg 27.0-32.0 [facility] Mean corpuscular hemoglobin concentration (MCHC) determinationOrdered By: HEALTH ASSESSMENT on 09-08-2024 MCHC (RBC) [Mass/Vol] 32.4 g/dL 32-36 [facility] Mean platelet volume determi nationOrdered By: HEALTH ASSESSMENT on 09-08-2024 Platelet mean volume (Bld) [Entitic vol] 9.6 fL 6.2-12.0 [facility] Nucleated red blood cell per centageOrdered By: HEALTH ASSESSMENT on 09-08-2024 Nucleated RBC/100 WBC (Bld) [Ratio] 0 % 0-5 [facility] Platelet countOrdered By: HE ALTH ASSESSMENT on 09-08-2024 Platelets (Bld) [#/Vol] 306 10*3/uL 150-450 [facility] Potassium measurement (mass/ volume)Ordered By: HEALTH ASSESSMENT on 09-08-2024 Potassium (Unsp spec) [Mass/Vol] 3.7 mmol/L 3.3-5.1 [facility] RBC Auto (Bld) [#/Vol]Ordere d By: HEALTH ASSESSMENT on 09-08-2024 RBC (Bld) [#/Vol] 4.45 10*6/uL 4.2-5.4 [facility] Screening total cholesterol/ high density lipoprotein (HDL) cholesterol ratioOrdered By: HEALTH ASSESSMENT on 09-08-2024 Cholesterol.total/Choles terol in HDL [Mass ratio] 4.01 {ratio} [facility] Serum creatinine measurement (mass/volume)Ordered By: HEALTH ASSESSMENT on 09-08-2024 Creatinine [Mass/Vol] 0.74 mg/dL 0.70-1.20 [facility] Serum globulin measurementOr dered By: HEALTH ASSESSMENT on 09-08-2024 Globulin (S) [Mass/Vol] 3.2 g/dL 2.2-4.2 [facility] Serum glucose measurement (m ass/volume)Ordered By: HEALTH ASSESSMENT on 09-08-2024 Glucose [Mass/Vol] 85 mg/dL 70-99 [facility] Serum or plasma alanine cid otransferase (ALT) measurementOrdered By: HEALTH ASSESSMENT on 09-08-2024 ALT [Catalytic activity/Vol] 22 U/L <35 [facility] Serum or plasma albumin domenica urement (mass/volume)Ordered By: HEALTH ASSESSMENT on 09-08-2024 Albumin [Mass/Vol] 4.4 g/dL 3.5-5.0 [facility] Serum or plasma albumin/glob ulin mass ratioOrdered By: HEALTH ASSESSMENT on 09-08-2024 Albumin/Globulin [Mass ratio] 1.4 {ratio} 0.9-2.4 [facility] Serum or plasma alkaline dylan sphatase measurementOrdered By: HEALTH ASSESSMENT on 09-08-2024 ALP [Catalytic activity/Vol] 39 U/L 35-104 [facility] Serum or plasma calcium domenica urement (mass/volume)Ordered By: HEALTH ASSESSMENT on 09-08-2024 Calcium [Mass/Vol] 9.4 mg/dL 7.6-11.0 [facility] Serum or plasma cholesterol in HDL measurement (mass/volume)Ordered By: HEALTH ASSESSMENT on 09-08-2024 Cholesterol in HDL [Mass/Vol] 42 mg/dL >40 [facility] Comment on above: National Cholesterol Education Program (NCEP) guidelines:<40 mg/dL: Low HDL-cholesterol (major risk factor for CHD)>= 60 mg/dL: High HDL-cholesterol (negative risk factor for CHD)HDL-cholesterol is affected by a number of factors, e.g. smoking, exercise, hormones, sex and age. Serum or plasma cholesterol in LDL measurement (mass/volume)Ordered By: HEALTH ASSESSMENT on 09-08-2024 Cholesterol in LDL [Mass/Vol] 105 mg/dL 0-130 [facility] Serum or plasma cholesterol measurement (mass/volume)Ordered By: HEALTH ASSESSMENT on 09-08-2024 Cholesterol [Mass/Vol] 167 mg/dL <201 [facility] Comment on above: Cholesterol level, D esirable <200 mg/dLBorderline high cholesterol 200-239 mg/dLHigh cholesterol >=240 mg/dLRecommendations of the NCEP Adult Treatment Panel for the following risk-cutoff thresholds for the [place] population. Serum or plasma urea nitroge n measurement (mass/volume)Ordered By: HEALTH ASSESSMENT on 09-08-2024 Urea nitrogen [Mass/Vol] 10 mg/dL 4-19 [facility] Serum or plasma uric acid me asurement (mass/volume)Ordered By: HEALTH ASSESSMENT on 09-08-2024 Urate [Mass/Vol] 4.4 mg/dL 2.6-6.0 [facility] Comment on above: The drugs N-Acetylcy steine and Metamizole may falsely depress this assay. Sodium levelOrdered By: [facility] ASSESSMENT on 09-08-2024 Sodium [Moles/Vol] 139 mmol/L 133-145 [facility] Total proteinOrdered By: [facility] ASSESSMENT on 09-08-2024 Protein [Mass/Vol] 7.7 g/dL 5.9-8.4 [facility] Triglycerides measurementOrd ered By: HEALTH ASSESSMENT on 09-08-2024 Triglyceride [Mass/Vol] 99 mg/dL <199 [facility] Comment on above: The drugs N-Acetylcy steine and Metamizole may falsely depress this assay. Normal range: <150 mg/dLBorderline High: 150-199 mg/dLHigh: 200-499 mg/dLVery High: >500 mg/dL Urinalysis, Employeeon 09-08 BILIRUBIN URINE Normal Negative [facility] Comment on above: Order Comment: Urine , Random Result Comment: @PT DIDNT WANT URINE Performed By: #### L 100.0200, L500.2900, L400.0100 ####[facility] [address] [place], [address] Clarity (U) Normal Clear [facility] Comment on above: Order Comment: Urine , Random Result Comment: @PT DIDNT WANT URINE Performed By: #### L 100.0200, L500.2900, L400.0100 ####[facility] [address] [place], [address] Color (U) Normal Yellow [facility] Comment on above: Order Comment: Urine , Random Result Comment: @PT DIDNT WANT URINE Performed By: #### L 100.0200, L500.2900, L400.0100 ####[facility] [address] [place], [address] GLUCOSE, UR Normal Normal [facility] Comment on above: Order Comment: Urine , Random Result Comment: @PT DIDNT WANT URINE Performed By: #### L 100.0200, L500.2900, L400.0100 ####[facility] [address] [place], [address] KETONE UR Normal Negative [facility] Comment on above: Order Comment: Urine , Random Result Comment: @PT DIDNT WANT URINE Performed By: #### L 100.0200, L500.2900, L400.0100 ####[facility] [address] [place], [address] LEUK ESTERASE Normal Negative [facility] Comment on above: Order Comment: Urine , Random Result Comment: @PT DIDNT WANT URINE Performed By: #### L 100.0200, L500.2900, L400.0100 ####[facility] [address] [place], [address] Nitrite Ql (U) Normal Negative [facility] Comment on above: Order Comment: Urine , Random Result Comment: @PT DIDNT WANT URINE Performed By: #### L 100.0200, L500.2900, L400.0100 ####[facility] [address] [place], [address] OCCULT BLOOD-UR Normal Negative [facility] Comment on above: Order Comment: Urine , Random Result Comment: @PT DIDNT WANT URINE Performed By: #### L 100.0200, L500.2900, L400.0100 ####[facility] [address] [place], [address] pH UR Normal 5.0 - 8.0 [facility] Comment on above: Order Comment: Urine , Random Result Comment: @PT DIDNT WANT URINE Performed By: #### L 100.0200, L500.2900, L400.0100 ####[facility] [address] [place], [address] PROT DIPSTX Normal Negative [facility] Comment on above: Order Comment: Urine , Random Result Comment: @PT DIDNT WANT URINE Performed By: #### L 100.0200, L500.2900, L400.0100 ####[facility] [address] [place], [address] SP.GR. DIPSTX Normal 1.002-1.03 0 [facility] Comment on above: Order Comment: Urine , Random Result Comment: @PT DIDNT WANT URINE Performed By: #### L 100.0200, L500.2900, L400.0100 ####[facility] [address] [place], [address] UR Preservative Normal [facility] Comment on above: Order Comment: Urine , Random Result Comment: @PT DIDNT WANT URINE Performed By: #### L 100.0200, L500.2900, L400.0100 ####[facility] [address] [place], [address] UROBILI Normal Normal [facility] Comment on above: Order Comment: Urine , Random Result Comment: @PT DIDNT WANT URINE Performed By: #### L 100.0200, L500.2900, L400.0100 ####[facility] [address] [place], [address] White blood cell (WBC) count Ordered By: HEALTH ASSESSMENT on 09-08-2024 WBC (Bld) [#/Vol] 6.6 10*3/uL 4.4-11.0 [facility] 08-12-2024 [facility] Telephone ([facility]) -------- LAISHA ROMERO ([id number]) 1980 F Date Time Provider Department 08/12/24 CLARE MOBLEY During your visit today, we recorded the following information about you: Allergies As of Date: 08/12/2024 Noted Allergy Reaction LATEX 04/20/2004 Comments: internal OXYCODONE 04/20/2004 Date Reviewed: Never Reviewed Prescriptions as of 08/12/2024 - LO/OVRAL-28 TABLET Take one(1) tablet daily. 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 She accepted 10/08 for her procedure in [place]. Discussed doing split enemas (fleets) OTC the evening before and the day of the procedure. Will send a [employer] message about a week before with general information. She thanked me for the phone call. Shirlene Zavala RN August 12, 2024 Allergies As of Date: 08/12/2024 Noted Allergy Reaction LATEX 04/20/2004 Comments: internal OXYCODONE 04/20/2004 Date Reviewed: Never Reviewed Reason for Visit: Group Practice Pediatrician - Other [3602] Prescriptions as of 08/12/2024 - LO/OVRAL-28 TABLET Take one(1) tablet daily. 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] 05/18/2004 IMPACTION INTESTINE NEC [K56.49] 06/22/2004 Encounter Status:Closed by SHIRLENE ZAVALA on 08/12/24 [facility] CNOVon 08-10-2024 CNOV Office Visit (CORSMN ) -------- LAISHA ROMERO ([id number]) 1980 F Date Time Provider Department 08/10/24 2:30 PM CLARE MOBLEY During your visit today, we recorded the following information about you: Temperature Pulse Blood pressure Weight 96.7 degrees 72/minute 124/74 68 kg Height Last Period 1.676 m 07/23/24 Clare Mobley DO 08/10/2024 7:21 PM Signed [facility] August 02, 2024 Laisha Romero 44 year old This consult was requested by Dr. Herrera and my final recommendations will be communicated to the requesting health care provider by way of the shared medical record for internal providers or letter via the [employer] for external providers. Chief Complaint: Inability to pass/ difficulty moving the bowels History of Present Illness: Laisha Romero is a 44 year old year old female with a history of sphincterplasty by Dr. Reyna in 2004 for severe fecal incontinence following a fourth-degree episiotomy injury during vaginal delivery in 1997, presenting for evaluation of ongoing bowel dysfunction and mucosal prolapse. She reports a longstanding sensation of incomplete evacuation and persistent rectal pressure, describing a constant feeling of needing to have a bowel movement or pass gas, which has been present for approximately 20 years and is worsening with age. Bowel movements occur daily, sometimes more than once per day, but she is only able to pass small amounts at a time and rarely feels fully emptied. She often needs to strain and sometimes initiates defecation manually with her finger. She endorses alternating constipation and diarrhea, with constipation predominating; when stool becomes loose, she is more likely to experience fecal leakage, including occasional accidents if she cannot reach the bathroom in time. She notes that softer stools are particularly difficult to evacuate, often requiring her to rock back and forth, and result in smearing with toilet paper. She does not take laxatives or bowel medications regularly, but does use fiber and a probiotic, and occasionally uses stool softeners after back surgery. She has tried Linzess in the past without benefit and has not used Miralax or senna-containing teas. She has also tried enemas before intimacy, which did not improve her symptoms. The patient describes frequent passage of mucus and notes mucosal prolapse, though she is unsure if the prolapse occurs with every bowel movement. She denies pelvic pain and urinary symptoms. She reports that her symptoms significantly impact her quality of life, particularly affecting her sex life due to fear of incontinence or passing gas during intimacy, and she finds it increasingly difficult to control gas as she ages. She is able to manage at work due to access to a private bathroom, but expresses distress over the chronic nature of her symptoms. Her surgical history includes sphincterplasty in 2004, anterior lumbar fusion (approached through the abdomen), section in 2003, endometrial ablation, and cholecystectomy approximately one year ago. She has previously undergone a colorectal ultrasound and a Sitz marker study (capsule transit study) in 12/2021, which demonstrated abdominal (slow transit) constipation with 10 out of 24 markers retained. 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 She is followed by a rn dialysis but has not seen him recently. She denies pelvic pain and reports no issues with urination. (12/28) SITZ Marker Study: 10 of 24 markers retained, indicating slow transit consistent with abdominal constipation. G PAST MEDICAL HISTORY Diagnosis Date PMH - PAST MEDICAL HISTORY OF 06/24 kidney problems-up to 2 stents on right kidney PAST SURGICAL HISTORY Procedure Laterality Date DELIVERY ONLY , low cervical PAST SURGICAL HISTORY OF 5 surgeries on right kidney in 2 years Current Outpatient Medications Medication Sig Dispense Refill LO/OVRAL-28 TABLET Take one(1) tablet daily. 0 No current facility-administered medications for this visit. ALLERGIES Allergen Reactions Latex internal Oxycodone FAMILY HISTORY Problem Relation Age of Onset Prostate Cancer Maternal Grandfather Diabetes Maternal Grandmother Social History Tobacco Use Smoking status: Every Day Current packs/day: 1.00 Average packs/day: 1 pack/day for 10.0 years (10.0 ttl pk-yrs) Types: Cigarettes Substance Use Topics Alcohol use: No FUNCTIONAL STATUS: Do yardwork, such as raking leaves, weeding,or pushing a power mower (4.50 METs) Review of Systems: GENERAL: No weight loss, malaise or fevers RESPIRATORY: Negative for cough, hemoptysis, wheezing, COPD, dyspnea (more content not included)... Normal [facility] HISTORY PHYSICALon HISTORY PHYSICAL HNO ID: [id number] Author: CLARE MOBLEY DO Service: ? Author Type: Physician Type: H&P Filed: 08/10/2024 19:21 Note Text: [facility] August 02, 2024 Laisha Romero 44 year old This consult was requested by Dr. Herrera and my final recommendations will be communicated to the requesting health care provider by way of the shared medical record for internal providers or letter via the [employer] for external providers. Chief Complaint: Inability to pass/ difficulty moving the bowels History of Present Illness: Laisha Romero is a 44 year old year old female with a history of sphincterplasty by Dr. Ryena in 2004 for severe fecal incontinence following a fourth-degree episiotomy injury during vaginal delivery in 1997, presenting for evaluation of ongoing bowel dysfunction and mucosal prolapse. She reports a longstanding sensation of incomplete evacuation and persistent rectal pressure, describing a constant feeling of needing to have a bowel movement or pass gas, which has been present for approximately 20 years and is worsening with age. Bowel movements occur daily, sometimes more than once per day, but she is only able to pass small amounts at a time and rarely feels fully emptied. She often needs to strain and sometimes initiates defecation manually with her finger. She endorses alternating constipation and diarrhea, with constipation predominating; when stool becomes loose, she is more likely to experience fecal leakage, including occasional accidents if she cannot reach thebathroom in time. She notes that softer stools are particularly difficult to evacuate, often requiring her to rock back and forth, and result in smearing with toilet paper. She does not take laxatives or bowel medications regularly, but does use fiber and a probiotic, and occasionally uses stool softeners after back surgery. She has tried Linzess in the past without benefit and has not used Miralax or senna-containing teas. She has also tried enemas before intimacy, which did not improve her symptoms. The patient describes frequent passage of mucus and notes mucosal prolapse, though she is unsure if the prolapse occurs with every bowel movement. She denies pelvic pain and urinary symptoms. She reports that her symptoms significantly impact her quality of life, particularly affecting her sex life due to fear of incontinence or passing gas during intimacy, and she finds it increasingly difficult to control gas as she ages. She is able to manage at work due to access to a private bathroom, but expresses distress over the chronic nature of her symptoms. Her surgical history includes sphincterplasty in 2004, anterior lumbar fusion (approached through the abdomen), section in 2003, endometrial ablation, and cholecystectomy approximately one year ago. She has previously undergone a colorectal ultrasound and a Sitz marker study (capsule transit study) in 12/2021, which demonstrated abdominal (slow transit) constipation with 10 out of 24 markers retained. 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 She is followed by a rn dialysis but has not seen him recently. She denies pelvic pain and reports no issues with urination. (12/28) SITZ Marker Study: 10 of 24 markers retained, indicating slow transit consistent with abdominal constipation. G PAST MEDICAL HISTORY Diagnosis Date PMH - PAST MEDICAL HISTORY OF 06/24 kidney problems-up to 2 stents on right kidney PAST SURGICAL HISTORY Procedure Laterality Date DELIVERY ONLY , low cervical PAST SURGICAL HISTORY OF 5 surgeries on right kidney in 2 years Current Outpatient Medications Medication Sig Dispense Refill LO/OVRAL-28 TABLET Take one(1) tablet daily. 0 No current facility-administered medications for this visit. ALLERGIES Allergen Reactions Latex internal Oxycodone FAMILY HISTORY Problem Relation Age of Onset Prostate Cancer Maternal Grandfather Diabetes Maternal Grandmother Social History Tobacco Use Smoking status: Every Day Current packs/day: 1.00 Average packs/day: 1 pack/day for 10.0 years (10.0 ttl pk-yrs) Types: Cigarettes Substance Use Topics Alcohol use: No FUNCTIONAL STATUS: Do yardwork, such as raking leaves, weeding,or pushing a power mower (4.50 METs) Review of Systems: GENERAL: No weight loss, malaise or fevers RESPIRATORY: Negative for cough, hemoptysis, wheezing, COPD, dyspnea or shortness of breath CARDIOVASCULAR: Negative for chest pain, leg swelling, hypertension, CHF or palpitations GI: No nausea, vomiting, or diarrhea : No history of dysuria, frequency or incontinence 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 Normal [facility] Thyroid Peroxidase ABon 06-22 THYR PEROX AB 17 IU/mL Normal 0-34 [facility] Comment on above: Result Comment: Perf ormed at: CB - [facility] [address] [id number] [employer] Photograph: Edgar Lanza PhD, Phone: [phone] Performed By: #### L 100.2944, R793.4171, I967.6686, N1388.7615 ####[facility] [address] [place], [address] Absolute lymphocyte countOrd ered By: Liz Iraheta on 06-30-2024 Lymphocytes Auto (Unsp spec) [#/Vol] 2.26 10*3/uL 0.83-4.51 [facility] Absolute neutrophil countOrd ered By: Liz Iraheta on 06-30-2024 Neutrophils (Bld) [#/Vol] 4.2 10*3/uL 2.0-7.7 [facility] Automated lymphocyte count a s percentage of total leukocytesOrdered By: Liz Iraheta on 06-30-2024 Lymphocytes/100 WBC Auto (Unsp spec) 31.7 % 19-41 [facility] Basophil percentageOrdered B y: Liz Iraheta on 06-30-2024 Basophils/100 WBC (Bld) 0.6 % 0-1 [facility] CBC W/Diff, Automatedon Absolute Lymph 2.26 X10 3/uL Normal 0.83-4.51 [facility] Comment on above: Performed By: #### L 100.0100, L506.0400, L501.9520, L3300.6900 ####[facility] [address] [place], [address] Absolute Neut 4.2 X10 3/uL Normal 2.0-7.7 [facility] Comment on above: Performed By: #### L 100.0100, L506.0400, L501.9520, L3300.6900 ####[facility] [address] [place], [address] Basophils/100 WBC (Bld) 0.6 % Normal 0-1 [facility] Comment on above: Performed By: #### L 100.0100, L506.0400, L501.9520, L3300.6900 ####[facility] [address] [place], [address] Eosinophils/100 WBC (Bld) 1.8 % Normal 0-5 [facility] Comment on above: Performed By: #### L 100.0100, L506.0400, L501.9520, L3300.6900 ####[facility] [address] [place], [address] Erythrocyte distribution width (RBC) [Ratio] 13.1 % Normal 11.6-14.6 [facility] Comment on above: Performed By: #### L 100.0100, L506.0400, L501.9520, L3300.6900 ####[facility] [address] [place], [address] Hematocrit (Bld) [Volume fraction] 41.8 % Normal 37-47 [facility] Comment on above: Performed By: #### L 100.0100, L506.0400, L501.9520, L3300.6900 ####[facility] [address] [place], [address] Hemoglobin (Bld) [Mass/Vol] 13.6 g/dL Normal 12.0-15.0 [facility] Comment on above: Performed By: #### L 100.0100, L506.0400, L501.9520, L3300.6900 ####[facility] [address] [place], [address] IG% 0.100 Normal 0.0-0.9 [facility] Comment on above: Result Comment: IG% - Immature Granulocytes (promyelocytes, myelocytes and metamyelocytes) > 1% indicates that a LEFT SHIFT is Present. Performed By: #### L 100.0100, L506.0400, L501.9520, L3300.6900 ####[facility] [address] [place], [address] Lymphocytes/100 WBC (Bld) 31.7 % Normal 19-41 [facility] Comment on above: Performed By: #### L 100.0100, L506.0400, L501.9520, L3300.6900 ####[facility] [address] [place], [address] MCH (RBC) [Entitic mass] 29.7 pg Normal 27.0-32.0 [facility] Comment on above: Performed By: #### L 100.0100, L506.0400, L501.9520, L3300.6900 ####[facility] [address] [place], [address] MCHC (RBC) [Mass/Vol] 32.5 g/dL Normal 32-36 [facility] Comment on above: Performed By: #### L 100.0100, L506.0400, L501.9520, L3300.6900 ####[facility] [address] [place], [address] MCV (RBC) [Entitic vol] 91.3 fL Normal 81-99 [facility] Comment on above: Performed By: #### L 100.0100, L506.0400, L501.9520, L3300.6900 ####[facility] [address] [place], [address] Monocytes/100 WBC (Bld) 7.7 % Normal 0-10 [facility] Comment on above: Performed By: #### L 100.0100, L506.0400, L501.9520, L3300.6900 ####[facility] [address] [place], [address] Neutrophils/100 WBC (Bld) 58.1 % Normal 47-70 [facility] Comment on above: Performed By: #### L 100.0100, L506.0400, L501.9520, L3300.6900 ####[facility] [address] [place], [address] Nucleated RBC (Bld) [#/Vol] 0 10*3/uL Normal 0-5 [facility] Comment on above: Performed By: #### L 100.0100, L506.0400, L501.9520, L3300.6900 ####[facility] [address] [place], [address] Platelet mean volume (Bld) [Entitic vol] 9.3 fL Normal 6.2-12.0 [facility] Comment on above: Performed By: #### L 100.0100, L506.0400, L501.9520, L3300.6900 ####[facility] [address] [place], [address] Platelets (Bld) [#/Vol] 320 10*3/uL Normal 150-450 [facility] Comment on above: Performed By: #### L 100.0100, L506.0400, L501.9520, L3300.6900 ####[facility] [address] [place], [address] RBC (Bld) [#/Vol] 4.58 10*6/uL Normal 4.2-5.4 [facility] Comment on above: Performed By: #### L 100.0100, L506.0400, L501.9520, L3300.6900 ####[facility] [address] [place], [address] RDW SD 43.9 fl Normal 35.1-43.9 [facility] Comment on above: Performed By: #### L 100.0100, L506.0400, L501.9520, L3300.6900 ####[facility] [address] [place], [address] WBC (Bld) [#/Vol] 7.1 10*3/uL Normal 4.4-11.0 [facility] Comment on above: Performed By: #### L 100.0100, L506.0400, L501.9520, L3300.6900 ####[facility] [address] [place], [address] Eosinophil percentageOrdered By: Liz Iraheta on 06-30-2024 Eosinophils/100 WBC (Bld) 1.8 % 0-5 [facility] Erythrocyte distribution wid th (RBC) [Ratio]Ordered By: Liz Iraheta on 06-30-2024 Erythrocyte distribution width (RBC) [Entitic vol] 43.9 fL 35.1-43.9 [facility] Erythrocyte distribution wid th ratioOrdered By: Liz Iraheta on 06-30-2024 Erythrocyte distribution width (RBC) [Ratio] 13.1 % 11.6-14.6 [facility] Erythrocyte distribution wid th standard deviationOrdered By: Liz Iraheta on 06-30-2024 Erythrocyte distribution width (RBC) [Ratio] 43.9 fl 35.1-43.9 [facility] Hematocrit Auto (Bld) [Volum e fraction]Ordered By: Liz Iraheta on 06-30-2024 Hematocrit (Bld) [Volume fraction] 41.8 % 37-47 [facility] Hemoglobin measurementOrdere d By: Liz Iraheta on 06-30-2024 Hemoglobin (Bld) [Mass/Vol] 13.6 g/dL 12.0-15.0 [facility] Immature granulocytes/100 WB C Auto (Bld)Ordered By: Liz Iraheta on 06-30-2024 Immature granulocytes/100 WBC (Bld) 0.100 % 0.0-0.9 [facility] Comment on above: IG% - Immature Granu locytes (promyelocytes, myelocytes and metamyelocytes) > 1% indicates that a LEFT SHIFT is Present. Lymphocytes Auto (Unsp spec) [#/Vol]Ordered By: Liz Iraheta on 06-30-2024 Lymphocytes (Bld) [#/Vol] 2.26 10*3/uL 0.83-4.51 [facility] Lymphocytes/100 WBC Auto (Un sp spec)Ordered By: Liz Iraheta on 06-30-2024 Lymphocytes/100 WBC (Bld) 31.7 % 19-41 [facility] MCV (mean corpuscular volume ) determinationOrdered By: Liz Iraheta on 06-30-2024 MCV (RBC) [Entitic vol] 91.3 fL 81-99 [facility] Mean corpuscular hemoglobin (MCH) determinationOrdered By: Liz Iraheta on 06-30-2024 MCH (RBC) [Entitic mass] 29.7 pg 27.0-32.0 [facility] Mean corpuscular hemoglobin concentration (MCHC) determinationOrdered By: Liz Iraheta on 06-30-2024 MCHC (RBC) [Mass/Vol] 32.5 g/dL 32-36 [facility] Mean platelet volume determi nationOrdered By: Liz Iraheta on 06-30-2024 Platelet mean volume (Bld) [Entitic vol] 9.3 fL 6.2-12.0 [facility] Monocyte percentageOrdered B y: Liz Iraheta on 06-30-2024 Monocytes/100 WBC (Bld) 7.7 % 0-10 [facility] Neutrophil percentageOrdered By: Liz Iraheta on 06-30-2024 Neutrophils/100 WBC (Bld) 58.1 % 47-70 [facility] Nucleated red blood cell per centageOrdered By: Liz Iraheta on 06-30-2024 Nucleated RBC/100 WBC (Bld) [Ratio] 0 % 0-5 [facility] Audio Visual Project Manager Office Visit Reporton 06-30-2024 Audio Visual Project Manager Office Visit Report [facility] [address], [place] [address] OFFICE VISIT Date of Service: 06/30/24 MR#: [id number] Acct: [id number] Name: LAISHA ROMERO ANGEL LUIS Rep #: [id number] : 1980 Provider: JAXSON wood Age/Sex: 44/F Location: [facility] Status: Signed Intake Vital Signs 03/01/24 06:25 06/30/24 14:09 06/30/24 14:15 Height 5 ft 6 in 5 ft 6 in 5 ft 6 in Weight: 156 lb 6 oz BMI 25.2 BP 118/72 Intake Visit Reasons: Menopause sx Chief Complaint: Menopause sx Ota Required: No Is patient in pain?: No Allergies latex Allergy (Severe, Verified 06/30/24 14:08) Other nitrofurantoin (From Macrobid) Allergy (Intermediate, Verified 06/30/24 14:08) Nausea esomeprazole (From Nexium) Adverse Reaction (Intermediate, Verified 06/30/24 14:08) Other Medications ???Medication ???Instructions ???Recorded ???Confirmed ???Type multivitamin 1 tab PO DAILY 10/24/20 06/30/24 H istory Lactobacillus acidophilus 250 500 mmu cells PO DAILY 12/23/22 History million cell capsule (Probiotic Acidophilus) psyllium husk 0.4 gram capsule 0.8 g PO DAILY 07/02/23 06/30/24 H istory (Daily Fiber) pantoprazole 20 mg tablet,delayed 20 mg PO Q12H #60 tabs 05/10/24 0 06/30/24 Rx release Is last menstrual period known: Yes Last Menstrual Period: 06/30/24 Post menopausal: No Patient : No : No [facility] Medical History Leg pain Leg swelling History of renal disease Shortness of breath on exertion Epigastric pain GERD (gastroesophageal reflux disease) Gastric reflux Wears glasses Loose, teeth Alcohol use Back pain History of diverticulitis Heartburn Former smoker History of pain when walking vericose vein surgery Surgical History History of esophagogastroduodenosco py (EGD) History of back surgery H/O spinal fusion Hx of vein stripping Hx of rectal sphincterotomy History of hysteroscopy H/O dilation and curettage 4th degree tear in sphincterplasty delivery delivered Family History Mother Diabetes Cancer renal cell carsinoma Social History Smoking Status: Former smoker alcohol intake: current details: social substance use type: does not use caffeine: Yes frequency: 1-2 times per week seatbelt use: always do you feel safe at home: Yes additional social history: - [employer] at [employer] HPI Menopause sx Details: LAISHA ROMERO is a 44 year old who presents for hot flashes, sleep disturbance, emotional changes, lack of libido and vaginal dryness. She is still having monthly light menses, have been light since ablation. She states she feels tired all the time, no motivation. Female Reproductive History Last Menstrual Period: 06/30/24 History 3 Elective abortions Hx Para 2 Spontaneous abortions Hx # Term Pregnancies Ectopic pregnancies Hx # Pregnancies Multiple births # of living children Past Pregnancies Del. Date Name GA/Weeks Outcome Route Bth Weight Gen Labor Lgth Anesthesia Del Locatn Provider FOB Unknown 1997 Nora Female Mónicae Unknown 2007 Junior Female Ankit ROS Const Constitutional: Reports as per HPI Eyes Eyes: Reports system reviewed and no additional complaints, except as documented GI GI: Denies abdominal pain or change in bowel habits : Reports as per HPI Skin Skin/Breast: Reports dry skin Psych Psych: Reports as per HPI Exam Const General: anxious Nutritional Appearance: well nourished Orientation: oriented x3 Resp Effort Inspection: normal respiratory effort Psych Appearance: well kempt Mental Status: mental status grossly normal Mood: dysthymic mood Affect: sad and tearful Speech and Movement: speech and movement normal Attitude: cooperative Thought Process: normal Thought Content: normal Judgment: judgment good Coding Level of Care Code Off vis,est,level 3 Diagnoses Hot flashes R23.2 Assessment and Plan Assessment and Plan (1) Hot flashes: Status: Acute Orders: Orders T4 Free Direct Today R23.2 - [place] Thyroid Peroxidase AB Today R23.2 - [place] Thyroid Stim Hormone (TSH) Today R23.2 - [place], Z13.29 - Encounter for screening for other suspected endocrine disorder CBC W/Diff, Automated Today R23.2 - [place] Plan See labs pending If normal consider low dose OCP Has tried without success celexa and prozac 06/30/24 1435 Date Liz Iraheta DESPATCHING AND RECEIVING CLERK DESPATCHING AND RECEIVING CLERK-C (more content not included)... Normal [facility] Platelet countOrdered By: Wale Iraheta on 06-30-2024 Platelets (Bld) [#/Vol] 320 10*3/uL 150-450 [facility] RBC Auto (Bld) [#/Vol]Ordere d By: Liz Iraheta on 06-30-2024 RBC (Bld) [#/Vol] 4.58 10*6/uL 4.2-5.4 [facility] Serum or plasma thyroperoxid ase antibody assay (units/volume)Ordered By: Liz Iraheta on 06-30-2024 TPO Ab Qn 17 [IU]/mL 0- [facility] Comment on above: Performed at: [facility] [address] [id number] Director: Edgar Lanza PhD, Phone: [phone] T4 Free Directon 06-30-2024 T4 FREE DIRECT 1.20 ng/dL Normal 0.76-1.46 [facility] Comment on above: Performed By: #### L 100.0100, L506.0400, L501.5720, L3392.0884 ####[facility] [address] [place], [address] T4 freeOrdered By: Liz wolfe on 06-30-2024 Free T4 [Mass/Vol] 1.20 ng/dL 0.76-1.46 [facility] TPO Ab QnOrdered By: Liz hood on 06-30-2024 Thyroid Peroxidase Antibodies 17 IU/mL 0- [facility] Comment on above: Performed at: [facility] [address] [id number] Director: Edgar Lanza PhD, Phone: [phone] TSH DL <= 0.005 mIU/L QnOrde red By: Liz Iraheta on 06-30-2024 Thyroid Stimulating Hormone (TSH) 0.981 uIU/mL 0.300-4.20 0 [facility] TSH Qn 0.981 uIU/mL 0.300-4.20 0 [facility] Thyroid Stim Hormone (TSH)on 06-30-2024 TSH 0.981 uIU/mL Normal 0.300-4.20 0 [facility] Comment on above: Performed By: #### L 100.0100, L506.0400, L501.9520, L3822.8867 ####[facility] [address] [place], [place], [address] White blood cell (WBC) count Ordered By: Liz Iraheta on 06-30-2024 WBC (Bld) [#/Vol] 7.1 10*3/uL 4.4-11.0 [facility] AT III Func / Immunolon 12-2 AT3 AG, IMMUNOL 109 Normal 72-124 [facility] Comment on above: Order Comment: Test( s) 100592-Oqibfjywmgd; 186308-Agpoi Activity, Plasmawas developed and its performance characteristicsdetermined by [facility]. It has not been cleared or approvedby the Food and Drug Administration.N Performed By: #### L 3100.7050, L4500.2000, L3300.0450, L3100.5600, L3100.8408, L4500.0100, L3100.5700, L3100.7325, L101.9900, L801.2600, L3100.5800, L3100.7250, L4500.5000, L3100.5055, L509.6000, L3300.1050, L3400.0200 ####[facility] [address] [place], [place], [address] AT3 FUNCTIONAL 139 High 75-135 [facility] Comment on above: Order Comment: Test( s) 609289-Wzewozhloko; 580153-Dihxj Activity, Plasmawas developed and its performance characteristicsdetermined by [facility]. It has not been cleared or approvedby the Food and Drug Administration.N Result Comment: An e levated antithrombin activity is of no known clinical significance. Direct Xa inhibitor anticoagulants such as rivaroxaban, apixaban and edoxaban will lead to spuriously elevated antithrombin activity levels possibly masking a deficiency. Performed By: #### L 3100.7050, L4500.2000, L3300.0450, L3100.5600, L3100.8408, L4500.0100, L3100.5700, L3100.7325, L101.9900, L801.2600, L3100.5800, L3100.7250, L4500.5000, L3100.5055, L509.6000, L3300.1050, L3400.0200 ####[facility] [address] [place], [place], [address] Anticardiolipin IgA,G,Mon ANTICARDIO IgA < 9 Normal 0-11 [facility] Comment on above: Order Comment: Test( s) 558792-Iuetzjmlmrt; 515196-Ibaoc Activity, Plasmawas developed and its performance characteristicsdetermined by [facility]. It has not been cleared or approvedby the Food and Drug Administration.N Result Comment: Nega tive: <12 Indeterminate: 12 - 20 Low-Med Positive: >20 - 80 High Positive: >80 Performed By: #### L 3100.7050, L4500.2000, L3300.0450, L3100.5600, L3100.8408, L4500.0100, L3100.5700, L3100.7325, L101.9900, L801.2600, L3100.5800, L3100.7250, L4500.5000, L3100.5055, L509.6000, L3300.1050, L3400.0200 ####[facility] [address] [place], [place], [address] ANTICARDIO IgG < 9 Normal 0-14 [facility] Comment on above: Order Comment: Test( s) 797137-Qdvwgxdzabf; 060730-Swxmx Activity, Plasmawas developed and its performance characteristicsdetermined by [facility]. It has not been cleared or approvedby the Food and Drug Administration.N Result Comment: Nega tive: <15 Indeterminate: 15 - 20 Low-Med Positive: >20 - 80 High Positive: >80 Performed By: #### L 3100.7050, L4500.2000, L3300.0450, L3100.5600, L3100.8408, L4500.0100, L3100.5700, L3100.7325, L101.9900, L801.2600, L3100.5800, L3100.7250, L4500.5000, L3100.5055, L509.6000, L3300.1050, L3400.0200 ####[facility] [address] [place], [place], [address] Anticardio.IgM 10 MPL U/mL Normal 0-12 [facility] Comment on above: Order Comment: Test( s) 783480-Jxkixjdknaa; 592838-Aedyz Activity, Plasmawas developed and its performance characteristicsdetermined by [facility]. It has not been cleared or approvedby the Food and Drug Administration.N Result Comment: Nega tive: <13 Indeterminate: 13 - 20 Low-Med Positive: >20 - 80 High Positive: >80 Performed By: #### L 3100.7050, L4500.2000, L3300.0450, L3100.5600, L3100.8408, L4500.0100, L3100.5700, L3100.7325, L101.9900, L801.2600, L3100.5800, L3100.7250, L4500.5000, L3100.5055, L509.6000, L3300.1050, L3400.0200 ####[facility] [address] [place], [place], [address] Complement C3on 03-21-2024 COMP C3 147 mg/dL Normal 82-167 [facility] Comment on above: Order Comment: Test( s) 398007-Buytfujrsaf; 636508-Wcxtv Activity, Plasmawas developed and its performance characteristicsdetermined by [facility]. It has not been cleared or approvedby the Food and Drug Administration.N Performed By: #### L 3100.7050, L4500.2000, L3300.0450, L3100.5600, L3100.8408, L4500.0100, L3100.5700, L3100.7325, L101.9900, L801.2600, L3100.5800, L3100.7250, L4500.5000, L3100.5055, L509.6000, L3300.1050, L3400.0200 ####[facility] [address] [place], [place], [address] Complement C4on 03-21-2024 COMPLEMENT, C4 26 mg/dL Normal 12-38 [facility] Comment on above: Order Comment: Test( s) 468116-Iljreduxead; 830698-Pzqsj Activity, Plasmawas developed and its performance characteristicsdetermined by [facility]. It has not been cleared or approvedby the Food and Drug Administration.N Performed By: #### L 3100.7050, L4500.2000, L3300.0450, L3100.5600, L3100.8408, L4500.0100, L3100.5700, L3100.7325, L101.9900, L801.2600, L3100.5800, L3100.7250, L4500.5000, L3100.5055, L509.6000, L3300.1050, L3400.0200 ####[facility] [address] [place], [place], [address] Complement CH50on 03-21-2024 COMPLEMENT,CH50 44 U/mL Normal >41 [facility] Comment on above: Order Comment: Test( s) 736554-Veflgugoxdf; 127412-Jcmct Activity, Plasma was developed and its performance characteristics determined by [facility]. It has not been cleared or approved by the Food and Drug Administration. N Result Comment: Age Male Female 1 - 30 days Not Estab. Not Estab. 31 days - 6 months >32 >20 7 months - 17 years >39 >39 >17 years >41 >41 NOTE: The adult (>17 years) reference interval range is used to flag abnormals on this report. If the patient is 17 years old or younger, use the table above to determine out of range values. Performed By: #### L 3100.7050, L4500.2000, L3300.0450, L3100.5600, L3100.8408, L4500.0100, L3100.5700, L3100.7325, L101.9900, L801.2600, L3100.5800, L3100.7250, L4500.5000, L3100.5055, L509.6000, L3300.1050, L3400.0200 #### [facility] [address] [place], [address] Estrogen, Total, Serumon ESTROGENS,TOTAL 183 pg/mL Normal . [facility] Comment on above: Order Comment: Test( s) 489079-Dgdiedpqnbd; 602130-Cxlua Activity, Plasma was developed and its performance characteristics determined by [facility]. It has not been cleared or approved by the Food and Drug Administration. N Result Comment: Prep ubertal < 40 Female Cycle: 1-10 Days 16 - 328 11-20 Days 34 - 501 21-30 Days 48 - 350 Post-Menopausal 40 - 244 Performed By: #### L 3100.7050, L4500.2000, L3300.0450, L3100.5600, L3100.8408, L4500.0100, L3100.5700, L3100.7325, L101.9900, L801.2600, L3100.5800, L3100.7250, L4500.5000, L3100.5055, L509.6000, L3300.1050, L3400.0200 #### [facility] [address] [place], [address] Fact V Leiden Mutationon FACTOR V LEIDEN Comment Normal . [facility] Comment on above: Order Comment: Test( s) 182377-Rtwhxwozhzc; 493955-Wbnsw Activity, Plasmawas developed and its performance characteristicsdetermined by [facility]. It has not been cleared or approvedby the Food and Drug Administration.N Result Comment: Resu lt: c.1601G>A (p.Dvh335Thg) - Not Detected This result is not associated with an increased risk for venous thromboembolism. See Additional Clinical Information and Comments. Additional Clinical Information: Venous thromboembolism is a multifactorial disease influenced by genetic, environmental, and circumstantial risk factors. The c.1601G>A (p. Ilt762Bku) variant in the F5 gene, commonly referred to as Factor V Leiden, is a genetic risk factor for venous thromboembolism. Heterozygous carriers of this variant have a 6- to 8-fold increased risk for venous thromboembolism. Individuals homozygous for this variant (ie, with a copy of the variant on each chromosome) have an approximately 80-fold increased risk for venous thromboembolism. Individuals who carry both a c.*97G>A variant in the F2 gene and Factor V Leiden have an approximately 20-fold increased risk for venous thromboembolism. Risks are likely to be even higher in more complex genotype combinations involving the F2 c.*97G>A variant and Factor V Leiden (PMID: 94510789). Additional risk factors include but are not limited to: deficiency of protein C, protein S, or antithrombin III, age, male sex, personal or family history of deep vein thromboembolism, smoking, surgery, prolonged immobilization, malignant neoplasm, tamoxifen treatment, raloxifene treatment, oral contraceptive use, hormone replacement therapy, and . Management of thrombotic risk and thrombotic events should follow established guidelines and fit the clinical circumstance. This result cannot predict the occurrence or recurrence of a thrombotic event. Comment: Genetic counseling is recommended to discuss the potential clinical implications of positive results, as well as recommendations for testing family members. Genetic Coordinators are available for health care providers to discuss results at [phone] [phone] Test Details: Variant Analyzed: c.1601G>A (p. Qcd638Ozk), referred to as Factor V Leiden Methods/Limitations: DNA analysis of the F5 gene (NM_000130.5) was performed by PCR amplification followed by restriction enzyme analysis. The diagnostic sensitivity is >99%. Results must be combined with clinical information for the most accurate interpretation. Molecular-based testing is highly accurate, but as in any laboratory test, diagnostic errors may occur. False positive or false negative results may occur for reasons that include genetic variants, blood transfusions, bone marrow transplantation, somatic or tissue-specific mosaicism, mislabeled samples, or erroneous representation of family relationships. This test was developed and its performance characteristics determined by [facility]. It has not been cleared or approved by the Food and Drug Administration. References: Deng S, Nora AK, Yoav R, Jonnathan WW, Modetso JH; [employer] Professional Practice and Guidelines Committee. Addendum: [employer] consensus statement on factor V Leiden mutation testing. [employer] Med. 2020May 26. doi: 10.1038/[id number]-k. PMID: 81515797. Steven GHOTRA. Factor V Leiden Thrombophilia. 1998August 04 (Updated 2017Mar 27). In: Faisal MP, Toribio HH, Roman RA, et al., editors. Zen(Rosalinda) (Internet). [place] ([place]): [facility], [place]; 1293-6086. Available from: https://www.ncbi.nlm.nih.gov/books/DVI6826/ Dexter S, Nora AK, Eliu X, Shahbaz B, Kevin EB, Adrianne P, Warren CS; [facility] Laboratory Production Consultant Committee. Venous thromboembolism laboratory testing (factor V Leiden and factor II c.*97G>A), 2018 update: a technical standard of the [employer] and [employer] (ACMG). Romy Med. 2018 Feb;20(12):8217-7860. doi: 10.1038/[id number]-b. Epub 2017Dec 26. PMID: 78642701. Performed By: #### L 3100.7050, L4500.2000, L3300.0450, L3100.5600, L3100.8408, L4500.0100, L3100.5700, L3100.7325, L101.9900, L801.2600, L3100.5800, L3100.7250, L4500.5000, L3100.5055, L509.6000, L3300.1050, L3400.0200 ####[facility] [address] [place], [address] Reviewed By Comment Normal . [facility] Comment on above: Order Comment: Test( s) 212046-Snqpmtmykoq; 838685-Sxdhs Activity, Plasmawas developed and its performance characteristicsdetermined by [facility]. It has not been cleared or approvedby the Food and Drug Administration.N Result Comment: Tech nical Component performed at [facility] RTP Professional Component performed by: Krys Ruano, Ph.D., [facility] Director, Molecular Genetics [address] [place] [address] [place] [address] Performed By: #### L 3100.7050, L4500.2000, L3300.0450, L3100.5600, L3100.8408, L4500.0100, L3100.5700, L3100.7325, L101.9900, L801.2600, L3100.5800, L3100.7250, L4500.5000, L3100.5055, L509.6000, L3300.1050, L3400.0200 ####[facility] [address] [place], [address] Factor II, DNA Analysison FACTOR II, DNA Comment Normal . [facility] Comment on above: Order Comment: Test( s) 271855-Exkcxxsxetm; 580219-Ptwij Activity, Plasmawas developed and its performance characteristicsdetermined by [facility]. It has not been cleared or approvedby the Food and Drug Administration.N Result Comment: Resu lt: c.*97G>A - Not Detected This result is not associated with an increased risk for venous thromboembolism. See Additional Clinical Information and Comments. Additional Clinical Information: Venous thromboembolism is a multifactorial disease influenced by genetic, environmental, and circumstantial risk factors. The c.*97G>A variant in the F2 gene is a genetic risk factor for venous thromboembolism. Heterozygous carriers have a 2- to 4-fold increased risk for venous thromboembolism. Homozygotes for the c.*97G>A variant are rare. The annual risk of VTE in homozygotes has been reported to be 1.1%/year. Individuals who carry both a c.*97G>A variant in the F2 gene and a c.1601G>A (p. Gbd201Twt) variant in the F5 gene (commonly referred to as Factor V Leiden) have an approximately 20- fold increased risk for venous thromboembolism. Risks are likely to be even higher in more complex genotype combinations involving the F2 c.*97G>A variant and Factor V Leiden (PMID: 10456232). Additional risk factors include but are not limited to: deficiency of protein C, protein S, or antithrombin III, age, male sex, personal or family history of deep vein thromboembolism, smoking, surgery, prolonged immobilization, malignant neoplasm, tamoxifen treatment, raloxifene treatment, oral contraceptive use, hormone replacement therapy, and . Management of thrombotic risk and thrombotic events should follow established guidelines and fit the clinical circumstance. This result cannot predict the occurrence or recurrence of a thrombotic event. Comments: Genetic counseling is recommended to discuss the potential clinical implications of positive results, as well as recommendations for testing family members. Genetic Coordinators are available for health care providers to discuss results at [phone] Test Details: Variant analyzed: c.*97G>A, previously referred to as [id number] Methods/Limitations: DNA analysis of the F2 gene (NM_000506.5) was performed by PCR amplification followed by restriction enzyme analysis. The diagnostic sensitivity is >99%. Results must be combined with clinical information for the most accurate interpretation. Molecular-based testing is highly accurate, but as in any laboratory test, diagnostic errors may occur. False positive or false negative results may occur for reasons that include genetic variants, blood transfusions, bone marrow transplantation, somatic or tissue-specific mosaicism, mislabeled samples, or erroneous representation of family relationships. This test was developed and its performance characteristics determined by [facility]. It has not been cleared or approved by the Food and Drug Administration. References: Deng Levine, Nora MURRIETA, Yoav R, Jonnathan WW, [place] JH; [employer] Professional Practice and Guidelines Committee. Addendum: [employer] consensus statement on factor V Leiden mutation testing. Romy Med. 2020May 26. doi: 10.1038/[id number]-y. PMID: 02205613. Steven GHOTRA. Prothrombin Thrombophilia. 2005Oct 15 [Updated 2020Apr 27]. In: Faisal MP, Toribio HH, Roman RA, et al., editors. Zen(R) [Internet]. [place] ([place]): [facility]; 4632-4381. Available from: https://www.ncbi.nlm.nih.gov/books/XKV6259/ Dexter Levine, Nora MURRIETA, Eliu X, Shahbaz B, Kevin EB, Adrianne P, Warren CS; [employer] Laboratory Production Consultant Committee. Venous thromboembolism laboratory testing (factor V Leiden and factor II c.*97G>A), 2018 update: a technical standard of the [employer] (ACMG). Romy Med. 2018 Feb;20(12):3949-7898. doi: 10.1038/[id number]-p. Epub 2017Dec 26. PMID: 80760422. Performed By: #### L 3100.7050, L4500.2000, L3300.0450, L3100.5600, L3100.8408, L4500.0100, L3100.5700, L3100.7325, L101.9900, L801.2600, L3100.5800, L3100.7250, L4500.5000, L3100.5055, L509.6000, L3300.1050, L3400.0200 ####[facility] [address] [facility] [place], [place], [id number] Lupus Anticoagulant Compon 1 05-22-2023 aPTT Coag (Bld) [Time] 34.2 s Normal 0.0-43.5 [facility] Comment on above: Order Comment: Test( s) 442426-Msrpzdvasls; 931379-Nygxu Activity, Plasma was developed and its performance characteristics determined by [facility]. It has not been cleared or approved by the Food and Drug Administration. N Performed By: #### L 3100.7050, L4500.2000, L3300.0450, L3100.5600, L3100.8408, L4500.0100, L3100.5700, L3100.7325, L101.9900, L801.2600, L3100.5800, L3100.7250, L4500.5000, L3100.5055, L509.6000, L3300.1050, L3400.0200 #### [facility] [address] [place], [place], [address] DILUTE PT (dPT) 34.9 sec Normal 0.0-47.6 [facility] Comment on above: Order Comment: Test( s) 459579-Jykfvyhdjqh; 809107-Otecq Activity, Plasma was developed and its performance characteristics determined by [facility]. It has not been cleared or approved by the Food and Drug Administration. N Performed By: #### L 3100.7050, L4500.2000, L3300.0450, L3100.5600, L3100.8408, L4500.0100, L3100.5700, L3100.7325, L101.9900, L801.2600, L3100.5800, L3100.7250, L4500.5000, L3100.5055, L509.6000, L3300.1050, L3400.0200 #### [facility] [address] [place], [place], [address] dPT Conf. Ratio 1.02 Ratio Normal 0.00-1.34 [facility] Comment on above: Order Comment: Test( s) 011650-Jurvuudbury; 031880-Qzlpt Activity, Plasma was developed and its performance characteristics determined by [facility]. It has not been cleared or approved by the Food and Drug Administration. N Performed By: #### L 3100.7050, L4500.2000, L3300.0450, L3100.5600, L3100.8408, L4500.0100, L3100.5700, L3100.7325, L101.9900, L801.2600, L3100.5800, L3100.7250, L4500.5000, L3100.5055, L509.6000, L3300.1050, L3400.0200 #### [facility] [address] [place], [address] DRVVT 33.6 sec Normal 0.0-47.0 [facility] Comment on above: Order Comment: Test( s) 434578-Ctfxvjpbkdh; 636526-Zwzwk Activity, Plasma was developed and its performance characteristics determined by [facility]. It has not been cleared or approved by the Food and Drug Administration. N Performed By: #### L 3100.7050, L4500.2000, L3300.0450, L3100.5600, L3100.8408, L4500.0100, L3100.5700, L3100.7325, L101.9900, L801.2600, L3100.5800, L3100.7250, L4500.5000, L3100.5055, L509.6000, L3300.1050, L3400.0200 #### [facility] [address] [place], [place], [address] Interpretation Comment: Normal . [facility] Comment on above: Order Comment: Test( s) 794995-Ybhlthrmtek; 888619-Utuqb Activity, Plasma was developed and its performance characteristics determined by [facility]. It has not been cleared or approved by the Food and Drug Administration. N Result Comment: No l upus anticoagulant was detected. Performed By: #### L 3100.7050, L4500.2000, L3300.0450, L3100.5600, L3100.8408, L4500.0100, L3100.5700, L3100.7325, L101.9900, L801.2600, L3100.5800, L3100.7250, L4500.5000, L3100.5055, L509.6000, L3300.1050, L3400.0200 #### [facility] [address] [facility] [place], [place], [address] THROMBIN TIME 16.1 sec Normal 0.0-23.0 [facility] Comment on above: Order Comment: Test( s) 493267-Dzgtgapeqqc; 294956-Zycps Activity, Plasma was developed and its performance characteristics determined by [facility]. It has not been cleared or approved by the Food and Drug Administration. N Performed By: #### L 3100.7050, L4500.2000, L3300.0450, L3100.5600, L3100.8408, L4500.0100, L3100.5700, L3100.7325, L101.9900, L801.2600, L3100.5800, L3100.7250, L4500.5000, L3100.5055, L509.6000, L3300.1050, L3400.0200 #### [facility] [address] [place], [place], [address] Protein C, Functionalon 02-22 PROTEIN C,FUNC 124 Normal 73-180 [facility] Comment on above: Order Comment: Test( s) 907412-Vurduomkesj; 622336-Nppvt Activity, Plasmawas developed and its performance characteristicsdetermined by [facility]. It has not been cleared or approvedby the Food and Drug Administration.N Result Comment: Perf ormed at: - [facility] [address] [id number] [employer] Photograph: Sydni Crabtree MD, Phone: [phone] Performed at: - [facility] [id number] [employer] Photograph: Edgar Lanza PhD, Phone: [phone] Performed at: - [facility] [address] [place], [place] [id number] [employer] Photograph: Robert Joyce [facility], Phone: [phone] Performed By: #### L 3100.7050, L4500.2000, L3300.0450, L3100.5600, L3100.8408, L4500.0100, L3100.5700, L3100.7325, L101.9900, L801.2600, L3100.5800, L3100.7250, L4500.5000, L3100.5055, L509.6000, L3300.1050, L3400.0200 ####[facility] [address] [place], [place], [phone](130) Protein S Antigenon 03-21-20 24 PROTEIN S, FREE 124 Normal 61-136 [facility] Comment on above: Order Comment: Test( s) 042571-Jtfgwthwtyq; 889680-Kkzpz Activity, Plasmawas developed and its performance characteristicsdetermined by [facility]. It has not been cleared or approvedby the Food and Drug Administration.N Performed By: #### L 3100.7050, L4500.2000, L3300.0450, L3100.5600, L3100.8408, L4500.0100, L3100.5700, L3100.7325, L101.9900, L801.2600, L3100.5800, L3100.7250, L4500.5000, L3100.5055, L509.6000, L3300.1050, L3400.0200 ####[facility] [address] [place], [place], [phone]) PROTEIN S,TOTAL 110 Normal 60-150 [facility] Comment on above: Order Comment: Test( s) 019357-Hrllgnhpkkg; 864181-Ajjxe Activity, Plasmawas developed and its performance characteristicsdetermined by [facility]. It has not been cleared or approvedby the Food and Drug Administration.N Result Comment: This test was developed and its performance characteristics determined by [employer]. It has not been cleared or approved by the Food and Drug Administration. Performed By: #### L 3100.7050, L4500.2000, L3300.0450, L3100.5600, L3100.8408, L4500.0100, L3100.5700, L3100.7325, L101.9900, L801.2600, L3100.5800, L3100.7250, L4500.5000, L3100.5055, L509.6000, L3300.1050, L3400.0200 ####[facility] [address] [place], [place], [id number] Protein S, Functionalon 02-22 PROTEIN S, FUNC 105 Normal 63-140 [facility] Comment on above: Order Comment: Test( s) 559758-Fqoklubgbdh; 110672-Suldx Activity, Plasmawas developed and its performance characteristicsdetermined by [employer]. It has not been cleared or approvedby the Food and Drug Administration.N Result Comment: Prot ein S activity may be falsely increased (masking an abnormal, low result) in patients receiving direct Xa inhibitor (e.g., rivaroxaban, apixaban, edoxaban) or a direct thrombin inhibitor (e.g., dabigatran) anticoagulant treatment due to assay interference by these drugs. Performed By: #### L 3100.7050, L4500.2000, L3300.0450, L3100.5600, L3100.8408, L4500.0100, L3100.5700, L3100.7325, L101.9900, L801.2600, L3100.5800, L3100.7250, L4500.5000, L3100.5055, L509.6000, L3300.1050, L3400.0200 ####[facility] [address] [place], [address] Renin/Aldosterone Activityon 03-21-2024 ALD/RENIN RATIO 3.2 Normal 0.0-30.0 [facility] Comment on above: Order Comment: Test( s) [id number]-Jdmoezvcwdt; 631643-Letdr Activity, Plasmawas developed and its performance characteristicsdetermined by [facility]. It has not been cleared or approvedby the Food and Drug Administration.N Result Comment: Unit s: ng/dL per ng/mL/hr Performed By: #### L 3100.7050, L4500.2000, L3300.0450, L3100.5600, L3100.8408, L4500.0100, L3100.5700, L3100.7325, L101.9900, L801.2600, L3100.5800, L3100.7250, L4500.5000, L3100.5055, L509.6000, L3300.1050, L3400.0200 ####[facility] [address] [place], [address](807) ALDOSTERONE,S 6.4 ng/dL Normal 0.0-30.0 [facility] Comment on above: Order Comment: Test( s) 455063-Wyshfqlcqxk; 974812-Ilvlm Activity, Plasmawas developed and its performance characteristicsdetermined by [facility]. It has not been cleared or approvedby the Food and Drug Administration.N Performed By: #### L 3100.7050, L4500.2000, L3300.0450, L3100.5600, L3100.8408, L4500.0100, L3100.5700, L3100.7325, L101.9900, L801.2600, L3100.5800, L3100.7250, L4500.5000, L3100.5055, L509.6000, L3300.1050, L3400.0200 ####[facility] [address] [place], [address](184) RENIN, PLASMA 1.971 ng/mL/hr Normal 0.167-5.38 0 [facility] Comment on above: Order Comment: Test( s) 056365-Woiwmpgcixx; 636363-Zhptw Activity, Plasmawas developed and its performance characteristicsdetermined by [facility]. It has not been cleared or approvedby the Food and Drug Administration.N Performed By: #### L 3100.7050, L4500.2000, L3300.0450, L3100.5600, L3100.8408, L4500.0100, L3100.5700, L3100.7325, L101.9900, L801.2600, L3100.5800, L3100.7250, L4500.5000, L3100.5055, L509.6000, L3300.1050, L3400.0200 ####[facility] [address] [facility] [place], [place], [id number] PROGESTERONE 4317on 03-12-20 PROGESTERONE 3.1 ng/mL Normal . [facility] Comment on above: Order Comment: N Result Comment: Foll icular phase 0.1 - 0.9 Luteal phase 1.8 - 23.9 Ovulation phase 0.1 - 12.0 First trimester 11.0 - 44.3 Second trimester 25.4 - 83.3 Third trimester 58.7 - 214.0 Postmenopausal 0.0 - 0.1 Performed at: [address] [id number] [employer] Photograph: Edgar Lanza PhD, Phone: [phone] Performed By: #### L 3100.7050, L4500.2000, L3300.0450, L3100.5600, L3100.8408, L4500.0100, L3100.5700, L3100.7325, L101.9900, L801.2600, L3100.5800, L3100.7250, L4500.5000, L3100.5055, L509.6000, L3300.1050, L3400.0200 #### [facility] [address] [facility] [place], [address] CORTISOL SERUMon 03-11-2024 CORTISOL 12.00 ug/dL Normal 3.44-22.45 [facility] Comment on above: Result Comment: Adul t (AM) 5.27 - 22.45 ug/dL Adult (PM) 3.44 - 16.76 ug/dL Performed By: #### L 3100.7050, L4500.2000, L3300.0450, L3100.5600, L3100.8408, L4500.0100, L3100.5700, L3100.7325, L101.9900, L801.2600, L3100.5800, L3100.7250, L4500.5000, L3100.5055, L509.6000, L3300.1050, L3400.0200 #### [facility] [address] [place], [place], [address] Aldosterone, serumOrdered By : Octavio Rodríguez on 03-10-2024 Aldosterone 6.4 ng/dL 0.0-30.0 [facility] Aldosterone/Renin (P) [Ratio ]Ordered By: Octavio Rodríguez on 03-10-2024 Aldosterone/Renin Ratio 3.2 0.0-30.0 [facility] Comment on above: Units: ng/dL per ng/ mL/hr Antithrombin Ag IA Ql (PPP)O rdered By: Octavio Rodríguez on 03-10-2024 Anti-Thrombin III Antigen 109 % 72-124 [facility] Antithrombin actual/normal C hromogenic method (PPP) [Rel catalytic activity/Vol]Ordered By: Octavio Rodríguez on 03-10-2024 Functional Antithrombin III 139 % High 75-135 [facility] Comment on above: An elevated antithro mbin activity is of no known clinicalsignificance. Direct Xa inhibitor anticoagulants such asrivaroxaban, apixaban and edoxaban will lead to spuriouslyelevated antithrombin activity levels possibly masking adeficiency. Cardiolipin IgA QnOrdered By : Octavio Rodríguez on 03-10-2024 Anti-Cardiolipin IgA Antibody < 9 APL U/mL 0-11 [facility] Comment on above: Negative: <12 Indete rminate: 12 - 20 Low-Med Positive: >20 - 80 High Positive: >80 Cardiolipin IgG IA Qn (S)Ord ered By: Octavio Rodríguez on 03-10-2024 Anti-Cardiolipin IgG Antibody < 9 GPL U/mL 0-14 [facility] Comment on above: Negative: <15 Indete rminate: 15 - 20 Low-Med Positive: >20 - 80 High Positive: >80 Clotting factor V Leiden mut ation detectionOrdered By: Octavio Rodríguez on 03-10-2024 Factor V Leiden Mutation Comment . [facility] Comment on above: Result: c.1601G>A (p .Jak366Phu) - Not DetectedThis result is not associated with an increased risk for venousthromboembolism. See Additional Clinical Information andComments.Additional Clinical Information:Venous thromboembolism is a multifactorial diseaseinfluenced by genetic, environmental, and circumstantialrisk factors. The c.1601G>A (p. Osu687Slk) variant in theF5 gene, commonly referred to as Factor V Leiden, is agenetic risk factor for venous thromboembolism.Heterozygous carriers of this variant have a 6- to 8-foldincreased risk for venous thromboembolism. Individualshomozygous for this variant (ie, with a copy of the varianton each chromosome) have an approximately 80-fold increasedrisk for venous thromboembolism. Individuals who carry olvin c.*97G>A variant in the F2 gene and Factor V Leiden havean approximately 20-fold increased risk for venousthromboembolism. Risks are likely to be even higher in morecomplex genotype combinations involving the F2 c.*97G>Avariant and Factor V Leiden (PMID: 58035553). Additionalrisk factors include but are not limited to: deficiency ofprotein C, protein S, or antithrombin III, age, male sex,personal or family history of deep vein thromboembolism,smoking, surgery, prolonged immobilization, malignantneoplasm, tamoxifen treatment, raloxifene treatment, oralcontraceptive use, hormone replacement therapy, andpregnancy. Management of thrombotic risk and thromboticevents should follow established guidelines and fit theclinical circumstance. This result cannot predict theoccurrence or recurrence of a thrombotic event.Comment:Genetic counseling is recommended to discuss thepotential clinical implications of positive results, aswell as recommendations for testing family members.Genetic Coordinators are available for health careproviders to discuss results at [phone] ([phone]).Test Details:Variant Analyzed: c.1601G>A (p. [id number]), referred toas Factor V LeidenMethods/Limitations:DNA analysis of the F5 gene (NM_000130.5) was performedby PCR amplification followed by restriction enzymeanalysis. The diagnostic sensitivity is >99%. Results mustbe combined with clinical information for the most accurateinterpretation. Molecular-based testing is highly accurate,but as in any laboratory test, diagnostic errors may occur.False positive or false negative results may occur forreasons that include genetic variants, blood transfusions,bone marrow transplantation, somatic or tissue-specificmosaicism, mislabeled samples, or erroneous representationof family relationships.This test was developed and its performance characteristicsdetermined by [employer]. It has not been cleared orapproved by the Food and Drug Administration.References:Deng Levine, Nora MURRIETA, Yoav R, Jonnathan WW, [place] JH; ACMGProfessional Practice and Guidelines Committee. Addendum:[employer] consensus statement onfactor V Leiden mutation testing. [employer] Med. 2020May 26.doi: 10.1038/[id number]-c. PMID: 56893258.Steven GHOTRA. Factor V Leiden Thrombophilia. 1998August 04(Updated 2017Mar 27). In: Faisal MP, Toribio HH, Roman RA,et al., editors. Zen(R) (Internet). [place] ([place]):[facility], [place]; 1899-6192. Availablefrom: https://www.ncbi.nlm.nih.gov/books/KAC2445/Dexter Levine, Nora MURRIETA, Eliu X, Shahbaz B, Kevin EB, Adrianne P,Warren CS; [employer] Laboratory Production Consultant Committee.Venous thromboembolism laboratory testing (factor V Leidenand factor II c.*97G>A), 2018 update: a technical standardof the [employer] and Genomics(ACMG). Romy Med. 2018 Feb;20(12):5516-9254. doi:10.1038/[id number]-i. Epub 2017Dec 26. PMID: 73192917. Complement C3 assayOrdered B y: Octavio Rodríguez on 03-10-2024 Complement C3 147 mg/dL 82-167 [facility] Complement C4 [Mass/Vol]Orde red By: Octavio Rodríguez on 03-10-2024 Complement C4 26 mg/dL 12-38 [facility] Cortisol [Mass/Vol]Ordered B y: Octavio Rodríguez on 03-10-2024 Cortisol 12.00 ug/dL 3.44-22.45 [facility] Comment on above: Adult (AM) 5.27 - 22 .45 ug/dL Adult (PM) 3.44 - 16.76 ug/dL Dilute prothrombin time rati o confirmationOrdered By: Octavio Rodríguez on 03-10-2024 Prothrombin Time Ratio 1.02 Ratio 0.00-1.34 [facility] Erythrocyte Sed Rateon 03-10 SED RATE 11 mm/hr Normal 0-30 [facility] Comment on above: Performed By: #### L 3100.7050, L4500.2000, L3300.0450, L3100.5600, L3100.8408, L4500.0100, L3100.5700, L3100.7325, L101.9900, L801.2600, L3100.5800, L3100.7250, L4500.5000, L3100.5055, L509.6000, L3300.1050, L3400.0200 #### [facility] [address] [place], [place], [address] Erythrocyte sedimentation ra teOrdered By: Octavio Anne on 03-10-2024 ESR (Bld) [Velocity] 11 mm/h 0-30 [facility] Estrogen [Mass/Vol]Ordered B y: Octavio Rodríguez on 03-10-2024 Total Estrogens 183 pg/mL . [facility] Comment on above: Prepubertal < 40 Fem arslan Cycle: 1-10 Days 16 - 328 11-20 Days 34 - 501 21-30 Days 48 - 350 Post-Menopausal 40 - 244 F2 gene targeted mutation an alysis Molgen Nom (Bld/Tiss)Ordered By: Octaviomendez Rodríguez on 03-10-2024 Factor II DNA Analysis Comment . [facility] Comment on above: Result: c.*97G>A - N ot DetectedThis result is not associated with an increased risk for venousthromboembolism. See Additional Clinical Information andComments.Additional Clinical Information:Venous thromboembolism is a multifactorial disease influenced bygenetic, environmental, and circumstantial risk factors. The c.*97G>Avariant in the F2 gene is a genetic risk factor for venousthromboembolism. Heterozygous carriers have a 2- to 4-fold increasedrisk for venous thromboembolism. Homozygotes for the c.*97G>A variantare rare. The annual risk of VTE in homozygotes has been reported adria 1.1%/year. Individuals who carry both a c.*97G>A variant in theF2 gene and a c.1601G>A (p. Rxj184Ouk) variant in the F5 gene(commonly referred to as Factor V Leiden) have an approximately 20-fold increased risk for venous thromboembolism. Risks are likely adria even higher in more complex genotype combinations involving theF2 c.*97G>A variant and Factor V Leiden (PMID: 57612156). Additionalrisk factors include but are not limited to: deficiency of protein C,protein S, or antithrombin III, age, male sex, personal or familyhistory of deep vein thromboembolism, smoking, surgery, prolongedimmobilization, malignant neoplasm, tamoxifen treatment, raloxifenetreatment, oral contraceptive use, hormone replacement therapy, andpregnancy. Management of thrombotic risk and thrombotic events shouldfollow established guidelines and fit the clinical circumstance. Thisresult cannot predict the occurrence or recurrence of a thromboticevent.Comments:Genetic counseling is recommended to discuss the potential clinicalimplications of positive results, as well as recommendations fortesting family members.Genetic Coordinators are available for health care providers to discussresults at [phone] [phone] ([phone]).Test Details:Variant analyzed: c.*97G>A, previously referred to as [id number]/Limitations:DNA analysis of the F2 gene (NM_000506.5) was performed by PCRamplification followed by restriction enzyme analysis. The diagnosticsensitivity is >99%. Results must be combined with clinicalinformation for the most accurate interpretation. Molecular-basedtesting is highly accurate, but as in any laboratory test, diagnosticerrors may occur. False positive or false negative results may occurfor reasons that include genetic variants, blood transfusions, bonemarrow transplantation, somatic or tissue-specific mosaicism,mislabeled samples, or erroneous representation of familyrelationships.This test was developed and its performance characteristics determinedby [facility]. It has not been cleared or approved by the Food and DrugAdministration.References:Deng S, Nora MURRIETA, Yoav R, Jonnathan WW, [place] JH; ACMG ProfessionalPractice and Guidelines Committee. Addendum: [place] [employer] consensus statement on factor V Leiden mutationtesting. Romy Med. 2020May 26. doi: 10.1038/[id number]-m.PMID: 22704088.Steven GHOTRA. Prothrombin Thrombophilia. 2005Oct 15[Updated 2020Apr 27]. In: Faisal MP, Toribio HH, Roman RA, et al.,editors. Zen(R) [Internet]. [place] ([place]): [facility]; 5862-1940. Available from:https://www.ncbi.nlm.nih.gov/books/THO6171/Dexter S, Nora MURRIETA, Eliu X, Shahbaz B, Kevin EB, Adrianne P, Warren CS;ACMG Laboratory Production Consultant Committee. Venous thromboembolismlaboratory testing (factor V Leiden and factor II c.*97G>A),2018 update: a technical standard of the [place] [employer] MedicalGenetics and Genomics (ACMG). Romy Med. 2018 Feb;20(12):0257-3498.doi: 10.1038/[id number]-a. Epub 2017Dec 26. PMID: 26808142. FSH and LHon 03-10-2024 FSH 4.4 mIU/mL Normal [facility] Comment on above: Result Comment: NORMAL REFERENCE RANGES FEMALE FOLLICULAR 2.3 - 12.6 mIU/mL MID-CYCLE PEAK 5.2 - 17.5 mIU/mL LUTEAL 1.7 - 12.9 mIU/mL POST-MENOPAUSAL ON MHT 5.9 - 72.8 mIU/mL NOT ON MHT 12.7 - 132.2 mlU/mL MALE 0.7 - 10.8 mIU/mL Performed By: #### L 3100.7050, L4500.2000, L3300.0450, L3100.5600, L3100.8408, L4500.0100, L3100.5700, L3100.7325, L101.9900, L801.2600, L3100.5800, L3100.7250, L4500.5000, L3100.5055, L509.6000, L3300.1050, L3400.0200 #### [facility] [address] [place], [place], [id number] LH 6.5 mIU/mL Normal [facility] Comment on above: Result Comment: NORMAL REFERENCE RANGES FEMALE FOLLICULAR 1.9 - 26.2 mIU/mL MID-CYCLE PEAK 22.8 - 76.1 mIU/mL LUTEAL 0.6 - 16.6 mIU/mL POST-MENOPAUSAL ON MHT 1.1 - 52.4 mIU/mL NOT ON MHT 8.6 - 61.8 mIU/mL MALE 1.2 - 10.6 mIU/mL Performed By: #### L 3100.7050, L4500.2000, L3300.0450, L3100.5600, L3100.8408, L4500.0100, L3100.5700, L3100.7325, L101.9900, L801.2600, L3100.5800, L3100.7250, L4500.5000, L3100.5055, L509.6000, L3300.1050, L3400.0200 #### [facility] [address] [place], [place], [address] Follicle stimulating hormone (FSH) levelOrdered By: Octavio Rodríguez on 03-10-2024 Follicle Stimulating Hormone 4.4 mIU/mL [facility] Comment on above: NORMAL REFERENCE RAN GES FEMALE FOLLICULAR 2.3 - 12.6 mIU/mL MID-CYCLE PEAK 5.2 - 17.5 mIU/mL LUTEAL 1.7 - 12.9 mIU/mL POST-MENOPAUSAL ON MHT 5.9 - 72.8 mIU/mL NOT ON MHT 12.7 - 132.2 mlU/mL MALE 0.7 - 10.8 mIU/mL Gastroenterology Visit Repor ton 03-10-2024 Gastroenterology Visit Report [facility]enter[facility] [address] [place] [address] OFFICE VISIT Date of Service: 03/10/24 MR#: [id number] Acct: [id number] Name: LAISHA ROMERO Rep #: [id number] : 1980 Provider: Octavio Rodríguez DO Age/Sex: 44/F Location: [facility] Status: Signed Intake Vital Signs 03/01/24 06:25 Height 5 ft 6 in Intake Visit Reasons: Test Result Chief Complaint: constipation and diarrhea Allergies latex Allergy (Severe, Verified 03/01/24 06:24) Other nitrofurantoin (From Macrobid) Allergy (Intermediate, Verified 03/01/24 06:24) Nausea esomeprazole (From Nexium) Adverse Reaction (Intermediate, Verified 03/01/24 06:24) Other Medications ???Medication ???Instructions ???Recorded ???Confirmed ???Type multivitamin 1 tab PO DAILY 10/24/20 03/10/24 History Lactobacillus acidophilus 250 500 mmu cells PO DAILY 12/23/22 03/10/24 History million cell capsule (Probiotic Acidophilus) psyllium husk 0.4 gram capsule 0.8 g PO DAILY 07/02/23 03/10/24 History (Daily Fiber) pantoprazole 20 mg tablet,delayed 20 mg PO Q12H #60 tabs 12/08/23 03/10/24 Rx release PFSH Medical History Leg pain Leg swelling History of renal disease Shortness of breath on exertion Epigastric pain GERD (gastroesophageal reflux disease) Gastric reflux Wears glasses Loose, teeth Alcohol use Back pain History of diverticulitis Heartburn Former smoker History of pain when walking vericose vein surgery Surgical History History of esophagogastroduodenosco py (EGD) History of back surgery H/O spinal fusion Hx of vein stripping Hx of rectal sphincterotomy History of hysteroscopy H/O dilation and curettage 4th degree tear in sphincterplasty delivery delivered Family History Mother Diabetes Cancer renal cell carsinoma Social History Smoking Status: Former smoker alcohol intake: current details: social substance use type: does not use caffeine: Yes frequency: 1-2 times per week seatbelt use: always do you feel safe at home: Yes additional social history: - [employer] at [employer] HPI Chief Complaint: constipation and diarrhea Details: LAISHA ROMERO, is a 44 F who presents to the office today for follow up. OV 12.25.23 Pt here for f/u GERD, constipation and diarrhea. Pt had gallbladder removed in . Pt reports constipation for a few days then has frequent loose stools. Pt feels she has a UTI currently. Never has had a colonoscopy. EGD in . Colonoscopy 03.01.24 Diverticulosis in the recto-sigmoid colon, in the sigmoid colon and in the descending colon. Congested mucosa in the recto-sigmoid colon, in the sigmoid colon, in the transverse colon and in the ascending colon. Biopsied. Congested mucosa in the terminal ileum. Biopsied. OV 03.10.24 pt reports continued symptoms from previous visit; mixed diarrhea and constipation, HB, bloating, and abd pain. Pt is here to review results and discuss plan of care moving forward. ROS Const Constitutional: Positive for fatigue; No fever(s) or weight change ENT ENT: No difficulty swallowing Gastro GI: Positive for abdominal pain, bloating, change in bowel habits, constipation, diarrhea, heartburn and excessive flatus; No belching, change in stool character, coffee ground emesis, cramping, difficulty swallowing, feeling full early, incontinent of stools, Vomiting blood/hematemesis, Blood in stool, loose stools, Black,tarry stools, nausea/dyspepsia, pain with swallowing, vomiting or other Musc Musculoskeletal: Positive for back pain; No joint pain Skin Skin: No yellowing of the eye or itchy eyes Psych Psychiatric: No anxiety and No depression Endo Endocrine: Positive for fatigue; No weight change Aller/Imm Allergy/Immunologic: No itchy eyes Rebel/Lymp Hematologic/Lymphatic: No easy bleeding or easy bruising Exam Const General: cooperative, healthy appearing, comfortable and no acute distress HENCA Head: normal to inspection Ears: hearing grossly normal bilaterally Nose: external nose normal Face and sinus: normal facial exam and face symmetric Eyes General: appearance normal, both eyes and all related structures Sclera: sclerae normal Neck Neck: normal visual inspection and full ROM Chest Chest palpation inspection: normal inspection of the chest Resp Effort Inspection: normal respiratory effort, able to speak in complete sentences and symmetric chest movement GI Inspection: normal to inspection Skin General: no rashes or lesions noted Neuro General: pa (more content not included)... Normal [facility] Interpretation of lupus anti coagulant assayOrdered By: Octavio Rodríguez on 03-10-2024 Lupus Anticoagulant Interpretation Comment: . [facility] Comment on above: No lupus anticoagula nt was detected. Lupus anticoagulant neutrali zation dilute phospholipid time in platelet poor plasmaOrdered By: Octavio Rodríguez on 03-10-2024 Prothrombin Time Diluted 34.9 sec 0.0-47.6 [facility] Lupus anticoagulant-sensitiv e activated partial thromboplastin timeOrdered By: Octavio Rodríguez on 03-10-2024 Lupus Anticoagulant APTT 34.2 sec 0.0-43.5 [facility] Luteinizing hormone measurem entOrdered By: Octavio Rodríguez on 03-10-2024 Luteinizing Hormone 6.5 mIU/mL [facility] Comment on above: NORMAL REFERENCE RAN GES FEMALE FOLLICULAR 1.9 - 26.2 mIU/mL MID-CYCLE PEAK 22.8 - 76.1 mIU/mL LUTEAL 0.6 - 16.6 mIU/mL POST-MENOPAUSAL ON MHT 1.1 - 52.4 mIU/mL NOT ON MHT 8.6 - 61.8 mIU/mL MALE 1.2 - 10.6 mIU/mL Protein C actual/normal [employer] mogenic method (PPP) [Rel catalytic activity/Vol]Ordered By: Octavio Rodríguez on 03-10-2024 Functional Protein C 124 % 73-180 [facility] Comment on above: Performed at: [facility] mckenzie [address] [id number] Director: Sydni Crabtree MD, Phone: [phone] at: CB - [facility] [address] [id number] Director: Edgar Lanza PhD, Phone: [phone] at: [facility] [id number] [place], [place] [id number] Director: Robert Joyce [facility], Phone: [phone] Protein C Functional Activity Not Reportable [facility] Protein S Coag Qn (PPP)Order ed By: Octavio Rodríguez on 03-10-2024 Total Protein S 110 % 60-150 [facility] Comment on above: This test was develo ped and its performance characteristicsdetermined by [employer]. It has not been cleared orapproved by the Food and Drug Administration. Protein S Free Ag IA Qn (PPP )Ordered By: Octavio Rodríguez on 03-10-2024 Free Protein S 124 % 61-136 [facility] Protein S actual/normal Coag (PPP) [Relative time]Ordered By: Octavio Rodríguez on 03-10-2024 Functional Protein S 105 % 63-140 [facility] Comment on above: Protein S activity m ay be falsely increased (masking anabnormal, low result) in patients receiving direct Xainhibitor (e.g., rivaroxaban, apixaban, edoxaban) or adirect thrombin inhibitor (e.g., dabigatran) anticoagulanttreatment due to assay interference by these drugs. Quantitative serum progester one measurement by electrochemiluminescence immunoassay (Ordered By: Octavio Rodríguez on 03-10-2024 Progesterone Level 3.1 ng/mL . [facility] Comment on above: Follicular phase 0.1 - 0.9 Luteal phase 1.8 - 23.9 Ovulation phase 0.1 - 12.0 First trimester 11.0 - 44.3 Second trimester 25.4 - 83.3 Third trimester 58.7 - 214.0 Postmenopausal 0.0 - 0.1Performed at: [facility] [address] [id number] Director: Edgar Lanza PhD, Phone: [phone] Renin (P) [Catalytic activit y/Vol]Ordered By: Octavio Rodríguez on 03-10-2024 Renin 1.971 ng/mL/hr 0.167-5.38 0 [facility] Serum cardiolipin IgM antibo dy assayOrdered By: Octavio Rodríguez on 03-10-2024 Anti-Cardiolipin IgM Antibody 10 MPL U/mL 0-12 [facility] Comment on above: Negative: <13 Indete rminate: 13 - 20 Low-Med Positive: >20 - 80 High Positive: >80 Thrombin time Coag (PPP) [Ti me]Ordered By: Octavio Rodríguez on 03-10-2024 Thrombin Time 16.1 sec 0.0-23.0 [facility] Total hemolytic (CH50) compl ement assayOrdered By: Octavio Rodríguez on 03-10-2024 Total Complement (CH50) 44 U/mL >41 [facility] Comment on above: Age Male Female 1 - 30 days Not Estab. Not Estab. 31 days - 6 months >32 >20 7 months - 17 years >39 >39 >17 years >41 >41 NOTE: The adult (>17 years) reference interval range is used to flag abnormals on this report. If the patient is 17 years old or younger, use the table above to determine out of range values. dRVVT Coag (PPP) [Time]Order ed By: Octavio Rodríguez on 03-10-2024 Dilute Gurjit Viper Venom (Lupus) 33.6 sec 0.0-47.0 [facility] Colonoscopy Reporton 024 Colonoscopy Report [facility] Medical Records Department [address] [place] [address] Colonoscopy Report MR#: [id number] Acct: [id number] Name: LAISHA ROMERO ANGEL LUIS Rep #: [id number] : 1980 44 From: Octavio Rodríguez DO PCP: Dr. Sonia Perez MD Status:[facility] Patient Name: Laisha Romero Procedure Date: 03/01/2024 7:07 AM Date of : 1980 Age: 44 Procedure: Colonoscopy Indications: Generalized abdominal pain, Clinically significant diarrhea of unexplained origin Providers: Octavio Rodríguez DO Referring MD: Sonia Perez Md Medicines: Monitored Anesthesia Care Patient Profile: This is a 44 year old female. Refer to note in patient chart for documentation of history and physical. Last Colonoscopy: none. The patient's first colonoscopy is today. Complications: No immediate complications. Procedure: Pre-Anesthesia Assessment: - Prior to the procedure, a History and Physical was performed, and patient medications and allergies were reviewed. The patient is competent. The risks and benefits of the procedure and the sedation options and risks were discussed with the patient. All questions were answered and informed consent was obtained. Patient identification and proposed procedure were verified by the physician in the pre-procedure area. Mental Status Examination: alert and oriented. Airway Examination: normal oropharyngeal airway and neck mobility. Respiratory Examination: clear to auscultation. CV Examination: normal. Prophylactic Antibiotics: The patient does not require prophylactic antibiotics. Prior Anticoagulants: The patient has taken no anticoagulant or antiplatelet agents except for NSAID medication. ASA Grade Assessment: II - A patient with mild systemic disease. After reviewing the risks and benefits, the patient was deemed in satisfactory condition to undergo the procedure. The anesthesia plan was to use monitored anesthesia care (MAC). Immediately prior to administration of medications, the patient was re-assessed for adequacy to receive sedatives. The heart rate, respiratory rate, oxygen saturations, blood pressure, adequacy of pulmonary ventilation, and response to care were monitored throughout the procedure. The physical status of the patient was re-assessed after the procedure. After I obtained informed consent, the scope was passed under direct vision. Throughout the procedure, the patient's blood pressure, pulse, and oxygen saturations were monitored continuously. The Colonoscope was introduced through the anus and advanced to the terminal ileum. The colonoscopy was performed without difficulty. The patient tolerated the procedure well. The quality of the bowel preparation was adequate. The terminal ileum, ileocecal valve, appendiceal orifice, and rectum were photographed. Scope In: 7:19:41 AM Scope Withdrawal Time 0 hours 11 minutes 29 seconds Scope Out: 7:36:24 AM Total Procedure Duration Time 0 hours 16 minutes 43 seconds Findings: The perianal and digital rectal examinations were normal. Pertinent negatives include normal sphincter tone. Multiple small and large-mouthed diverticula were found in the recto-sigmoid colon, sigmoid colon and descending colon. An area of mildly congested mucosa was found in the recto-sigmoid colon, in the sigmoid colon, in the transverse colon and in the ascending colon. Biopsies were taken with a cold forceps for histology. Verification of patient identification for the specimen was done. Estimated blood loss was minimal. A patchy area of the terminal ileum was congested. Biopsies were taken with a cold forceps for histology. Verification of patient identification for the specimen was done. Estimated blood loss was minimal. Impression: - Diverticulosis in the recto-sigmoid colon, in the sigmoid colon and in the descending colon. - Congested mucosa in the recto-sigmoid colon, in the sigmoid colon, in the transverse colon and in the ascending colon. Biopsied. - Congested mucosa in the terminal ileum. Biopsied. Recommendation: - Discharge patient to home. - Resume previous diet. - Continue present medications. - Await pathology results. - Repeat colonoscopy in 5 years for surveillance. Procedure Code(s): --- Professional --- 68417, Colonoscopy, flexible; with biopsy, single or multiple CPT copyright 2021 [employer]. All rights reserved. The codes documented in this report are preliminary and upon certified procedural coder review may be revised to meet current compliance requirements. Octavio Rodríguez DO 03/01/2024 7:42:03 AM This report has been signed electronically. Number of Addenda: 0 Note Initiated On: 03/01/2024 7:07 AM 03/01/24 0742 Date Octavio Patel Signature: Date (more content not included)... Normal [facility] MR/POSTOP.Mali 03-01-2024 MR/POSTOP.[facility] Medical Records Department [address] [place] [address] Anesthesia Postop Eval I 03/01/24 0744 MR#: [id number] Acct: [id number] Name: LAISHA ROMERO ANGEL LUIS Rep #: [id number] : 1980 44 From: Gregg Nichols PCP: Dr. Sonia Perez MD Status:REG SDC Y Race: C Location: [place] [address] Anesthesia: Postop Eval I Current Vital Signs Temperature: 97.9 F Pulse Rate: 81 Blood Pressure: 95/58 Respiratory Rate: 18 Pulse Ox: 100 Oxygen Delivery Method: Room Air Assessment Airway patent: Yes Spontaneous unlabored respirations: Yes Mental status: Asleep nausea: No Vomiting: No Anesthesia Complication: No Fluid Hydration Crystalloid volume administer (ml): 60 Total IV fluid infused: 60 Progress Note Anesthesia document: Postop Eval 1 completed: Yes 03/01/24 0745 Date Gregg Newtonignbailey Signature: Date CC: Signed Normal [facility] MR/[id number] 03-01-2024 MR/POSTOPAN2 [facility] Medical Records Department [address] [place] [address] Anesthesia Postop Eval II 03/01/24 0835 MR#: [id number] Acct: [id number] Name: LAISHA ROMERO ANGEL LUIS Rep #: [id number] : 1980 44 From: Yousif Caban MD PCP: Dr. Sonia Perez MD Status:[facility] Y Race: C Location: EN Anesthesia Postop Eval I Sum Postop Eval Completion status Anesthesia document: Postop Eval 1 completed: Yes Anesthesia Postop Eval I Summary Anesthesia Postop Eval I Summary: Anesthesia Postop Eval I: Assessment Summary Airway patent Yes 03/01/24 07:45 [email or web address] Spontaneous unlabored Yes 03/01/24 07:45 [email or web address] respirations Mental status Asleep 03/01/24 07:45 [email or web address] nausea No 03/01/24 07:45 [email or web address] Vomiting No 03/01/24 07:45 [email or web address] Anesthesia Postop Eval I: Fluid Summary Crystalloid volume administer 60 03/01/24 07:45 [email or web address] (ml) Colloids volume administered ( ml) Blood Product volume administered (ml) Total IV fluid infused 60 03/01/24 07:45 [email or web address] Anesthesia Postop Eval I: Summary Notes Anesthesia Complication No 03/01/24 07:45 [email or web address] Anesthesia Complication Comment: Post-operative progress note Anesthesia: Postop Eval II Evaluation Mental status: Awake Pain Level: 0 nausea: No Vomiting: No 03/01/24 0835 Date Yousif Garcia Signature: Date CC: Signed Normal [facility] ,Urineon 03-01-2024 Beta HCG ( test) Ql (U) Negative Normal [facility] Comment on above: Result Comment: Very dilute urine specimens, as indicated by a low specific gravity, may not contain employer relations representative levels of hCG. If is still suspected, a first morning urine specimen should be collected 48 hours later and tested. Performed By: #### L 3100.7050, L4500.2000, L3300.0450, L3100.5600, L3100.8408, L4500.0100, L3100.5700, L3100.7325, L101.9900, L801.2600, L3100.5800, L3100.7250, L4500.5000, L3100.5055, L509.6000, L3300.1050, L3400.0200 #### [facility] Laboratory [facility] [address] [place], [place], [id number] Surgery Specimen Level Nahun 03-01-2024 Surgery Specimen Level IV Patient Age/Sex Location Account Attending Physician HÉCTORLAISHA Reed ANGEL LUIS 44/F EN [id number] Octavio Rodríguez DO Specimen: [id number] Received: 03/01/24 Status: SUZIColette Vaishnavi Num: [id number] Spec Type: COLON BX Subm Dr: Octavio Rodríguez DO HEADBAILEY OPERATION: Colonoscopy with biopsies PRE-OP DIAGNOSIS: Constipation, diarrhea TISSUE SUBMITTED: A- Terminal ileum biopsy, B- Random colon biopsy MICROSCOPIC DIAGNOSIS A. Terminal ileum, biopsy: No pathologic change. B. Colon, random biopsy: Focal denudation of mucosa and recent mucosal hemorrhage. No evidence of colitis. AM. 03/02/2024 MICROSCOPIC DESCRIPTION Slides are reviewed. GROSS DESCRIPTION A. Received in fixative is one container labeled with the patient's name and designated Terminal ileum biopsy. The specimen consists of multiple irregular fragments of light bansal soft tissue that in aggregate measure 0.9 x 0.5 x 0.1 cm. The specimen is totally submitted in one cassette. B. Received in fixative is one container labeled with the patient's name and designated Random colon biopsy. The specimen consists of multiple irregular fragments of light bansal soft tissue that in aggregate measure 2.0 x 0.7 x 0.1 cm. The specimen is totally submitted in one cassette. DEISY 03/01/2024 TC:5 [id number] Patient Age/Sex Location Account Attending Physician LAISHA ROMERO 44/F EN [id number] Octavio Rodríguez, DO Signed (signature on file) Dr. Andrey Finney DO 03/02/24 1159 [facility] Comment on above: Performed By: #### L 3100.7050, L4500.2000, L3300.0450, L3100.5600, L3100.8408, L4500.0100, L3100.5700, L3100.7325, L101.9900, L801.2600, L3100.5800, L3100.7250, L4500.5000, L3100.5055, L509.6000, L3300.1050, L3400.0200 #### [facility] Laboratory [address] 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) Chief Complaint: Annual Ota Required: No Is patient in pain?: No Allergies latex Allergy (Severe, Verified 02/02/24 13:05) Other nitrofurantoin (From Macrobid) Allergy (Intermediate, Verified 02/02/24 13:05) Nausea esomeprazole (From Nexium) Adverse Reaction (Intermediate, Verified 02/02/24 13:05) Other Medications ???Medication ???Instructions ???Recorded ???Confirmed ???Type multivitamin 1 tab PO DAILY 10/24/20 02/02/24 History Lactobacillus acidophilus 250 500 mmu cells PO DAILY 12/23/22 02/02/24 History million cell capsule (Probiotic Acidophilus) linaclotide 72 mcg capsule 72 mcg PO QAM #30 caps 01/20/23 02/02/24 Rx (Linzess) psyllium husk 0.4 gram capsule 0.8 g PO DAILY 07/02/23 02/02/24 History (Daily Fiber) hydrocodone-acetaminophe n 5-325mg 1 tab PO Q6H PRN pain 2 days #6 07/14/23 02/02/24 Rx 5mg-325mg tabs pantoprazole 20 mg tablet,delayed 20 mg PO Q12H #60 tabs 12/08/23 02/02/24 Rx release Is last menstrual period known: Yes Last Menstrual Period: 01/22/24 Post menopausal: No Patient : No : No Control Method: Vasectomy [facility] Medical History Leg pain Leg swelling History of renal disease Shortness of breath on exertion Epigastric pain GERD (gastroesophageal reflux disease) Gastric reflux Wears glasses Loose, teeth Alcohol use Back pain History of diverticulitis Heartburn Former smoker History of pain when walking vericose vein surgery Surgical History History of esophagogastroduodenosco py (EGD) History of back surgery H/O spinal fusion Hx of vein stripping Hx of rectal sphincterotomy History of hysteroscopy H/O dilation and curettage 4th degree tear in sphincterplasty delivery delivered Family History Mother Diabetes Cancer renal cell carsinoma Social History Smoking Status: Former smoker alcohol intake: current details: social substance use type: does not use caffeine: Yes frequency: 1-2 times per week seatbelt use: always do you feel safe at home: Yes additional social history: - 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 Date Name GA/Weeks Outcome Route Bth Weight Gen Labor Lgth Anesthesia Del Locatn Provider FOB Unknown 1997 Nora Female Mendez Unknown 2007 Junior Female [facility] Encounter for routine gynecological examination Details: LAISHA ROMERO is a 44 year old who presents for annual exam. Denies concerns. Menses regular, light spotting since ablation. Last PAP: 01/2023 History of abnormal PAP: no Last mammogram: 11/2024 History of abnormal mammogram: no Colon cancer screening: scheduled Other preventative health care screenings: Chris/Alfred Female Reproductive History Last Menstrual Period: 01/22/24 Cycle Length: 21-35 Questions: metorrhagia: No, sexually active: Yes, dyspareunia: No and PCB: No ROS Const Constitutional: Denies fatigue, weight gain or weight loss Cardio Card: Denies chest pain Resp Resp: Denies cough or dyspnea on exertion GI GI: Denies abdominal pain, bloating, change in stool character, constipation or vomiting : Reports as per HPI; Denies difficulty voiding, pelvic pain, urinary frequency, urinary incontinence, urinary urgency, vaginal discharge or vaginal pruritus Exam Const General: cooperative, healthy appearing, no acute distress and well developed Orientation: alert, oriented to person and oriented to place HENMT Head: normal to inspection Neck Neck: normal visual inspection Thyroid: thyroid normal Lymphatic: no lymphadenopathy noted Chest Breast inspection: normal inspection of the breasts and normal inspection of the axillae Breast palpation: normal palpation of the breasts, normal palpation of the axillae and no axillary lymphadenopathy Resp Effort (more content not included)... Normal [facility] Abdomen Single Viewon 2023 Abdomen Single View [facility] Imaging Services [address] [place], [place] [id number] Abdomen Single View MR#: [id number] Acct: [id number] Name: LAISHA ROMERO Rep #: [id number] : 1980 F 43 From: Lamine Arnold MD PCP: Dr. Sonia Perez MD Status: REG CLI Study: Abdomen Single View Date of Exam: 12/31/23 Exam# [id number] Ordering Dr: Kerry Barnhart DESPATCHING AND RECEIVING CLERK-C [id number] STUDY: X-RAY - ABDOMEN/PELVIS REASON FOR EXAM: Female, 43 years old. Constipation TECHNIQUE: Two AP supine views of the abdomen and pelvis. COMPARISON: None. FINDINGS: Number of Sitzmarks markers has decreased since the previous study suggesting passage. There is an abundance of fecal material throughout the colon. There is no demonstrated free abdominal air. The visualized liver, spleen and kidneys are grossly normal in size and morphology. Normal soft tissue structures. Normal visualized osseous structures. RAD/Abdomen Single View IMPRESSION: No acute findings, Retained stool in the colon subjectively unchanged from the previous study Decreased number of Sitzmarks markers within the colon since the previous study Electronically Signed: Milan Arnold MD at 8:59 EDT Reading Location ID and State: [address] [place] [address] , Service support , CC: JAXSON Barnhart; Dr. Sonia Perez MD Transfer Specialist: Signed Normal [facility] Calprotectin, Stoolon [address] 30 ug/g Normal 0-120 [facility] Comment on above: Result Comment: Conc entration Interpretation Follow-Up < 5 - 50 ug/g Normal None >50 -120 ug/g Borderline Re-evaluate in 4-6 weeks >120 ug/g Abnormal Repeat as clinically indicated Performed at: - [facility] [id number] [employer] Photograph: Sydni Crabtree MD, Phone: [phone] Performed By: #### L 3100.7050, L4500.2000, L3300.0450, L3100.5600, L3100.8408, L4500.0100, L3100.5700, L3100.7325, L101.9900, L801.2600, L3100.5800, L3100.7250, L4500.5000, L3100.5055, L509.6000, L3300.1050, L3400.0200 #### [facility] Laboratory [address] [place], [address] L7000.0750on 12-30-2023 P ELASTASE,FECA > 800 Normal >200 [facility] Comment on above: Result Comment: Resu lt Units: ug Elast./g Severe Pancreatic Insufficiency: <100 Moderate Pancreatic Insufficiency: 100 - 200 Normal: >200 Performed at: [address] [id number] [employer] Photograph: Sydni Crabtree MD, Phone: [phone] Performed By: #### L 3100.7050, L4500.2000, L3300.0450, L3100.5600, L3100.8408, L4500.0100, L3100.5700, L3100.7325, L101.9900, L801.2600, L3100.5800, L3100.7250, L4500.5000, L3100.5055, L509.6000, L3300.1050, L3400.0200 #### [facility] Laboratory [address] [place], [address] Abdomen Single Viewon 2023 Abdomen Single View [facility] Imaging Services [address] [place] [address] Abdomen Single View MR#: [id number] Acct: [id number] Name: LAISHA ROMERO Rep #: [id number] : 1980 F 43 From: Lamine Arnold MD PCP: Dr. Sonia Perez MD Status: REG CLI Study: Abdomen Single View Date of Exam: 12/29/23 Exam# [id number] Ordering Dr: Kerry Barnhart DESPATCHING AND RECEIVING CLERK-C [id number] STUDY: X-RAY - ABDOMEN/PELVIS REASON FOR EXAM: Female, 43 years old. Abdominal pain and distention TECHNIQUE: Two AP supine views of the abdomen and pelvis. COMPARISON: None. FINDINGS: Normal visualized lung bases. There is an abundance of fecal material throughout the colon. There is no demonstrated free abdominal air. There are multiple Sitzmarkers from a bowel motility study, one is in the proximal transverse colon, one in the distal transverse colon the rest in the descending and sigmoid colon The visualized liver, spleen and kidneys are grossly normal in size and morphology. Normal soft tissue structures. Normal visualized osseous structures. RAD/Abdomen Single View IMPRESSION: No acute abnormalities, retained stool Electronically Signed: Milan Arnold MD at 8:18 EDT , CC: JAXSON Barnhart; Dr. Sonia Perez MD Transfer Specialist: Signed Normal [facility] Celiac Disease Profileon ENDOMYSIAL IGA Negative Normal Negative [facility] Comment on above: Performed By: #### L 3100.7050, L4500.2000, L3300.0450, L3100.5600, L3100.8408, L4500.0100, L3100.5700, L3100.7325, L101.9900, L801.2600, L3100.5800, L3100.7250, L4500.5000, L3100.5055, L509.6000, L3300.1050, L3400.0200 #### [facility] Laboratory [address] [place], [address] IMMUNOGLOB A QN 226 mg/dL Normal 87-352 [facility] Comment on above: Result Comment: Perf ormed at: - [facility] [address] [id number] [employer] Photograph: Edgar Lanza PhD, Phone: [phone] Performed By: #### L 3100.7050, L4500.2000, L3300.0450, L3100.5600, L3100.8408, L4500.0100, L3100.5700, L3100.7325, L101.9900, L801.2600, L3100.5800, L3100.7250, L4500.5000, L3100.5055, L509.6000, L3300.1050, L3400.0200 #### [facility] Laboratory [address] [place], [place], [id number] tTG IGA <2 Normal 0-3 [facility] Comment on above: Result Comment: Nega tive 0 - 3 Weak Positive 4 - 10 Positive >10 Tissue Transglutaminase (tTG) has been identified as the endomysial antigen. Studies have demonstr- ated that endomysial IgA antibodies have over 99% specificity for gluten sensitive enteropathy. Performed By: #### L 3100.7050, L4500.2000, L3300.0450, L3100.5600, L3100.8408, L4500.0100, L3100.5700, L3100.7325, L101.9900, L801.2600, L3100.5800, L3100.7250, L4500.5000, L3100.5055, L509.6000, L3300.1050, L3400.0200 #### [facility] Laboratory [address] [facility] [place], [address] L5500.0550on 12-28-2023 BEEF <0.10 Normal Class 0 [facility] Comment on above: Performed By: #### L 3100.7050, L4500.2000, L3300.0450, L3100.5600, L3100.8408, L4500.0100, L3100.5700, L3100.7325, L101.9900, L801.2600, L3100.5800, L3100.7250, L4500.5000, L3100.5055, L509.6000, L3300.1050, L3400.0200 #### [facility] Laboratory [address] [place], [address] CHOCOLATE <0.10 Normal Class 0 [facility] Comment on above: Performed By: #### L 3100.7050, L4500.2000, L3300.0450, L3100.5600, L3100.8408, L4500.0100, L3100.5700, L3100.7325, L101.9900, L801.2600, L3100.5800, L3100.7250, L4500.5000, L3100.5055, L509.6000, L3300.1050, L3400.0200 #### [facility] Laboratory [address] [place], [place], [id number] CODFISH <0.10 Normal Class 0 [facility] Comment on above: Performed By: #### L 3100.7050, L4500.2000, L3300.0450, L3100.5600, L3100.8408, L4500.0100, L3100.5700, L3100.7325, L101.9900, L801.2600, L3100.5800, L3100.7250, L4500.5000, L3100.5055, L509.6000, L3300.1050, L3400.0200 #### [facility] Laboratory [address] [place], [address] COMMENT Comment Normal . [facility] Comment on above: Result Comment: Cassandra العلي of Specific IgE Class Description of Class ----- < 0.10 0 Negative 0.10 - 0.31 0/I Equivocal/Low 0.32 - 0.55 I Low 0.56 - 1.40 II Moderate 1.41 - 3.90 III High 3.91 - 19.00 IV Very High 19.01 - 100.00 V Very High >100.00 Very High Performed By: #### L 3100.7050, L4500.2000, L3300.0450, L3100.5600, L3100.8408, L4500.0100, L3100.5700, L3100.7325, L101.9900, L801.2600, L3100.5800, L3100.7250, L4500.5000, L3100.5055, L509.6000, L3300.1050, L3400.0200 #### [facility] Laboratory [address] [place], [address] CORN <0.10 Normal Class 0 [facility] Comment on above: Performed By: #### L 3100.7050, L4500.2000, L3300.0450, L3100.5600, L3100.8408, L4500.0100, L3100.5700, L3100.7325, L101.9900, L801.2600, L3100.5800, L3100.7250, L4500.5000, L3100.5055, L509.6000, L3300.1050, L3400.0200 #### [facility] Laboratory [address] [place], [address] EGG, WHOLE <0.10 Normal Class 0 [facility] Comment on above: Result Comment: Perf ormed at: [facility] [address] [id number] [employer] Photograph: Sydni Crabtree MD, Phone: [phone] Performed By: #### L 3100.7050, L4500.2000, L3300.0450, L3100.5600, L3100.8408, L4500.0100, L3100.5700, L3100.7325, L101.9900, L801.2600, L3100.5800, L3100.7250, L4500.5000, L3100.5055, L509.6000, L3300.1050, L3400.0200 #### [facility] [address] [place], [address] MILK (COW) <0.10 Normal Class 0 [facility] Comment on above: Performed By: #### L 3100.7050, L4500.2000, L3300.0450, L3100.5600, L3100.8408, L4500.0100, L3100.5700, L3100.7325, L101.9900, L801.2600, L3100.5800, L3100.7250, L4500.5000, L3100.5055, L509.6000, L3300.1050, L3400.0200 #### [facility] [address], [place], [id number] MUSSELS <0.10 Normal Class 0 [facility] Comment on above: Performed By: #### L 3100.7050, L4500.2000, L3300.0450, L3100.5600, L3100.8408, L4500.0100, L3100.5700, L3100.7325, L101.9900, L801.2600, L3100.5800, L3100.7250, L4500.5000, L3100.5055, L509.6000, L3300.1050, L3400.0200 #### [facility] [place], [address] PEANUT <0.10 Normal Class 0 [facility] Comment on above: Performed By: #### L 3100.7050, L4500.2000, L3300.0450, L3100.5600, L3100.8408, L4500.0100, L3100.5700, L3100.7325, L101.9900, L801.2600, L3100.5800, L3100.7250, L4500.5000, L3100.5055, L509.6000, L3300.1050, L3400.0200 #### [facility] [place], [place], [id number] PORK <0.10 Normal Class 0 [facility] Comment on above: Performed By: #### L 3100.7050, L4500.2000, L3300.0450, L3100.5600, L3100.8408, L4500.0100, L3100.5700, L3100.7325, L101.9900, L801.2600, L3100.5800, L3100.7250, L4500.5000, L3100.5055, L509.6000, L3300.1050, L3400.0200 #### [facility] [address] [place], [address] SALMON <0.10 Normal Class 0 [facility] Comment on above: Performed By: #### L 3100.7050, L4500.2000, L3300.0450, L3100.5600, L3100.8408, L4500.0100, L3100.5700, L3100.7325, L101.9900, L801.2600, L3100.5800, L3100.7250, L4500.5000, L3100.5055, L509.6000, L3300.1050, L3400.0200 #### [facility] [address] [place], [place], [id number] SHRIMP <0.10 Normal Class 0 [facility] Comment on above: Performed By: #### L 3100.7050, L4500.2000, L3300.0450, L3100.5600, L3100.8408, L4500.0100, L3100.5700, L3100.7325, L101.9900, L801.2600, L3100.5800, L3100.7250, L4500.5000, L3100.5055, L509.6000, L3300.1050, L3400.0200 #### [facility] Laboratory [facility] [place], [place], [id number] SOYBEAN <0.10 Normal Class 0 [facility] Comment on above: Performed By: #### L 3100.7050, L4500.2000, L3300.0450, L3100.5600, L3100.8408, L4500.0100, L3100.5700, L3100.7325, L101.9900, L801.2600, L3100.5800, L3100.7250, L4500.5000, L3100.5055, L509.6000, L3300.1050, L3400.0200 #### [facility] Laboratory [facility] [place], [address] TUNA <0.10 Normal Class 0 [facility] Comment on above: Performed By: #### L 3100.7050, L4500.2000, L3300.0450, L3100.5600, L3100.8408, L4500.0100, L3100.5700, L3100.7325, L101.9900, L801.2600, L3100.5800, L3100.7250, L4500.5000, L3100.5055, L509.6000, L3300.1050, L3400.0200 #### [facility] [address] [place], [address] WHEAT <0.10 Normal Class 0 [facility] Comment on above: Performed By: #### L 3100.7050, L4500.2000, L3300.0450, L3100.5600, L3100.8408, L4500.0100, L3100.5700, L3100.7325, L101.9900, L801.2600, L3100.5800, L3100.7250, L4500.5000, L3100.5055, L509.6000, L3300.1050, L3400.0200 #### [facility] [address] [place], [address] Abdomen/Pelvis WITH Contrast on 12-26-2023 Abdomen/Pelvis WITH Contrast [facility] Imaging Services [address] [place] [address] Abdomen/Pelvis WITH Contrast MR#: [id number] Acct: [id number] Name: LAISHA ROMERO Rep #: [id number] : 1980 F 43 From: Marek clark MD PCP: Dr. Sonia Perez MD Status: REG CLI Study: Abdomen/Pelvis WITH Contrast Date of Exam: 07/15 Exam# [id number] Ordering Dr: Kerry Barnhart DESPATCHING AND RECEIVING CLERK-C [id number] STUDY: CT ABDOMEN AND PELVIS WITH CONTRAST REASON FOR EXAM: Female, 43 years old. Hematuria, family hx of RCC. Frequent urination. RADIATION DOSAGE (If Supplied By Facility): CTDIvol = ( 16.76 ) mGy, DLP = ( 749.37 ) mGycm TECHNIQUE: Transaxial images were obtained from the dome of the diaphragm to the symphysis pubis without oral contrast. IV 100mL Isovue-300 was administered. Sagittal and coronal images were reconstructed. Individualized dose optimization techniques were used for this CT. COMPARISON: Comparison is made with prior study dated December 10, 2017. FINDINGS: The visualized lung bases are unremarkable. The visualized portions of the heart are within normal limits. Normal liver. The patient is status post cholecystectomy. Normal spleen. Normal pancreas. Normal bilateral adrenal glands. Normal right kidney. There is a 7.4 mm cyst in the upper pole of the left kidney. 6 mm cyst in the posterior lateral aspect of the left kidney. There is a small hiatal hernia. Normal small intestine. There are scattered colonic diverticula consistent with diverticulosis. The appendix is visualized and appears normal. Normal abdominal aorta. Normal inferior vena cava. Normal retroperitoneum. Normal urinary bladder. Small follicles are seen in the right ovary. Normal abdominal wall. The patient is status post fusion at the L5-S1 level with prosthetic disc. 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 CT/Abdomen/Pelvis WITH Contrast IMPRESSION: Sigmoid diverticulosis. No evidence of diverticulitis. Status post cholecystectomy. Small left renal cysts. Electronically Signed: Marek Thompson MD at 10:39 EDT , CC: JAXSON Barnhart; Dr. Sonia Perez MD Transfer Specialist: Signed Normal [facility] Stool Lactoferrin/WBCon 10-0 WBCST Normal Reference Ran ge = Negative Fecal WBC Lactoferrin Negative: No Fecal WBC Lactoferrin present Normal [facility] Comment on above: Performed By: #### L 3100.7050, L4500.2000, L3300.0450, L3100.5600, L3100.8408, L4500.0100, L3100.5700, L3100.7325, L101.9900, L801.2600, L3100.5800, L3100.7250, L4500.5000, L3100.5055, L509.6000, L3300.1050, L3400.0200 #### [facility] [address] [facility] [place], [address] Abdomen Single Viewon 2023 Abdomen Single View [facility] Imaging Services [address] [place], [place] [address] Abdomen Single View MR#: [id number] Acct: [id number] Name: LAISHA ROMERO Rep #: [id number] : 1980 F 43 From: Wilfred Bourgeois MD PCP: Dr. Sonia Perez MD Status: REG CLI Study: Abdomen Single View Date of Exam: 12/25/23 Exam# [id number] Ordering Dr: Kerry Barnhart DESPATCHING AND RECEIVING CLERK-C [id number] EXAM: XR ABDOMEN, 1 VIEW CLINICAL INDICATION: constipation TECHNIQUE: Frontal supine view of the abdomen/pelvis. COMPARISON: 12/25/2023. FINDINGS: LOWER THORAX: No acute pathology. GASTROINTESTINAL TRACT: Moderate amount of fecal contents in the ascending colon, transverse colon and descending colon. Non-obstructive. No bowel or stomach distention. ORGANS: Unremarkable as visualized. No organomegaly. No abnormal calcifications. BONES/JOINTS: Metallic implant inside the L5-S1 disc space. SOFT TISSUES: No acute pathology. RAD/Abdomen Single View IMPRESSION: Mild constipation without significant change. Electronically Signed: Wilfred Bourgeois MD at 16:05 EDT , CC: JAXSON Barnhart; Dr. Sonia Perez MD Transfer Specialist: Signed Normal [facility] CRPon 12-25-2023 C-REACTIVE PROT < 2.90 Normal 0.0-3.0 [facility] Comment on above: Result Comment: C-Re active Protein (CRP) provides useful information for the diagnosis, therapy and monitoring of inflammatory processes and associated diseases. For the evaluation of Relative Risk for Cardiovascular Disease, a High Sensitivity CRP (HSCRP) should be ordered. Performed By: #### L 3100.7050, L4500.2000, L3300.0450, L3100.5600, L3100.8408, L4500.0100, L3100.5700, L3100.7325, L101.9900, L801.2600, L3100.5800, L3100.7250, L4500.5000, L3100.5055, L509.6000, L3300.1050, L3400.0200 #### [facility] [address] [place], [address] Erythrocyte Sed Rateon 12-24 SED RATE 3 mm/hr Normal 0-30 [facility] Comment on above: Performed By: #### L 3100.7050, L4500.2000, L3300.0450, L3100.5600, L3100.8408, L4500.0100, L3100.5700, L3100.7325, L101.9900, L801.2600, L3100.5800, L3100.7250, L4500.5000, L3100.5055, L509.6000, L3300.1050, L3400.0200 #### [facility] [address] [place], [place], [id number] Gastroenterology Visit Repor ton 12-25-2023 Gastroenterology Visit Report [facility] Gastroenterology [address] [place] [address] OFFICE VISIT Date of Service: 12/25/23 MR#: [id number] Acct: [id number] Name: LAISHA ROMERO Rep #: [id number] : 1980 Provider: JAXSON fuller Age/Sex: 43/F Location: [facility] Status: Signed Intake Vital Signs 07/14/23 06:39 Height 5 ft 6 in Intake Visit Reasons: Medication refill Chief Complaint: constipation and diarrhea Ota Required: No Allergies latex Allergy (Severe, Verified 07/02/23 10:27) Other nitrofurantoin (From Macrobid) Allergy (Intermediate, Verified 07/02/23 10:27) Nausea esomeprazole (From Nexium) Adverse Reaction (Intermediate, Verified 07/02/23 10:27) Other Have you fallen in the past year?: No Nurse's Note: OV 12.25.23 Pt here for f/u GERD, constipation and diarrhea. Pt had gallbladder removed in . Pt reports constipation for a few days then has frequent loose stools. Pt feels she has a UTI currently. Never has had a colonoscopy. EGD in . [facility] Medical History (Updated 12/25/23 @ 09:17 by JAXSON Torres) History of renal disease Shortness of breath on exertion Epigastric pain GERD (gastroesophageal reflux disease) Gastric reflux Wears glasses Loose, teeth Alcohol use Back pain History of diverticulitis Heartburn Former smoker History of pain when walking vericose vein surgery Surgical History (Updated 07/02/23 @ 10:31 by Jen Conklin) History of esophagogastroduodenosco py (EGD) History of back surgery H/O spinal fusion Hx of vein stripping Hx of rectal sphincterotomy History of hysteroscopy H/O dilation and curettage 4th degree tear in sphincterplasty delivery delivered Family History Mother Diabetes Cancer renal cell carsinoma Social History Smoking Status: Former smoker alcohol intake: current details: social substance use type: does not use caffeine: Yes frequency: 1-2 times per week seatbelt use: always do you feel safe at home: Yes additional social history: - [employer] at [employer] HPI Chief Complaint: constipation and diarrhea Details: LAISHA ROMERO, is a 43 F who presents to the office today for FU with increasing symptoms of GERD and new complaints of diarrhea mixed with constipation. She reports episodes of heartburn ramping up and needing to take more Tums. She denies difficulty chewing and swallowing, nausea, vomiting, and melena. She reports rarely hematochezia, but does have internal hemorrhoids. She reports tenesmus and sensation of stool in her rectal vault which has been impeding sexual intercourse for several weeks. She reports taking fiber caps and probiotics. She also reports traumatic vaginal for her first child; she stated the doctor gave her a vicious episiotomy and cut through her vagina to her rectum, and then only repairing surface tissue of vaginal wall. She states that she is missing part of her anal sphincter because of this. She denies having been offered pelvic floor therapy at that time. ROS Const Constitutional: Positive for fatigue; No fever(s) or weight change Eyes Eyes: No change in vision ENT ENT: No abnormal hearing or difficulty swallowing Resp Respiratory: No cough Cardio Cardiology: No chest pain at rest, chest pain with exertion or leg pain with exertion Gastro GI: Positive for bloating, constipation, diarrhea and excessive flatus; No abdominal pain, belching, change in bowel habits, change in stool character, coffee ground emesis, cramping, heartburn, difficulty swallowing, feeling full early, incontinent of stools, Vomiting blood/hematemesis, Blood in stool, loose stools, Black,tarry stools, nausea/dyspepsia, pain with swallowing, vomiting or other Genitourinary-Female: Positive for urinary frequency and urinary urgency Musc Musculoskeletal: Positive for back pain and sciatica; No joint pain or leg pain with exertion Skin Skin: No yellowing of the eye or itchy eyes Neuro Neurology: No abnormal hearing Psych Psychiatric: No anxiety and No depression Endo Endocrine: Positive for fatigue; No cold intolerance, heat intolerance or weight change Aller/Imm Allergy/Immunologic: No food intolerance or itchy eyes Rebel/Lymp Hematologic/Lymphatic: No easy bleeding or easy bruising Exam Const General: cooperative, healthy appearing, comfortable and no acute distress HENMT Head: normal to inspection Ears: hearing grossly normal bilaterally Nose: external nose normal Face and sinus: normal facial exam and face symmetric Eyes General: appearance normal, both eyes and all related structures Sclera: sclerae normal Neck Neck: normal (more content not included)... Normal [facility] Urinalysis, Completeon 12-24 BILIRUBIN URINE Negative Normal Negative [facility] Comment on above: Order Comment: CHIRAG CTOR TO SPECIFY Performed By: #### L 400.0001 ####[facility] [address] [place], [address] Clarity (U) Clear Normal Clear [facility] Comment on above: Order Comment: CHIRAG CTOR TO SPECIFY Performed By: #### L 400.0001 ####[facility] [address] [place], [address] Color (U) Straw Normal Yellow [facility] Comment on above: Order Comment: CHIRAG CTOR TO SPECIFY Performed By: #### L 400.0001 ####[facility] [address] [place], [address] GLUCOSE, UR Normal Normal Normal [facility] Comment on above: Order Comment: CHIRAG CTOR TO SPECIFY Performed By: #### L 400.0001 ####[facility] [address] [place], [address] KETONE UR Negative Normal Negative [facility] Comment on above: Order Comment: CHIRAG CTOR TO SPECIFY Performed By: #### L 400.0001 ####[facility] [address] [place], [address] LEUK ESTERASE Negative Normal Negative [facility] Comment on above: Order Comment: CHIRAG CTOR TO SPECIFY Performed By: #### L 400.0001 ####[facility] [address] [place], [address] Nitrite Ql (U) Negative Normal Negative [facility] Comment on above: Order Comment: CHIRAG CTOR TO SPECIFY Performed By: #### L 400.0001 ####[facility] [address] [place], [address] OCCULT BLOOD-UR 50 /ul Abnormal Negative [facility] Comment on above: Order Comment: CHIRAG CTOR TO SPECIFY Performed By: #### L 400.0001 ####[facility] [address] [place], [address] pH UR 5.0 Normal 5.0 - 8.0 [facility] Comment on above: Order Comment: CHIRAG CTOR TO SPECIFY Performed By: #### L 400.0001 ####[facility] [address] [place], [address] PROT DIPSTX Negative Normal Negative [facility] Comment on above: Order Comment: CHIRAG CTOR TO SPECIFY Performed By: #### L 400.0001 ####[facility] [address] [place], [address] SP.GR. DIPSTX 1.025 Normal 1.002-1.03 0 [facility] Comment on above: Order Comment: CHIRAG CTOR TO SPECIFY Performed By: #### L 400.0001 ####[facility] [address] [place], [address] UROBILI Normal Normal Normal [facility] Comment on above: Order Comment: CHIRAG CTOR TO SPECIFY Performed By: #### L 400.0001 ####[facility] [address] [place], [address] BACTERIA 0 SEEN Normal None Seen [facility] Comment on above: Order Comment: CHIRAG CTOR TO SPECIFY Performed By: #### L 400.0001 ####[facility] [address] [place], [address] EPI,SQUAMOUS 0 SEEN Normal 5-10 [facility] Comment on above: Order Comment: CHIRAG CTOR TO SPECIFY Performed By: #### L 400.0001 ####[facility] [address] [place], [address] Mucus Ql (Urine sed) 0 SEEN Normal [facility] Comment on above: Order Comment: CHIRAG CTOR TO SPECIFY Performed By: #### L 400.0001 ####[facility] [address] [place], [address] RBC 0 SEEN Normal 0-5 [facility] Comment on above: Order Comment: COLLE CTOR TO SPECIFY Performed By: #### L 400.0001 ####[facility] [address] [place], [address] WBC 0 SEEN Normal 0-5 [facility] Comment on above: Order Comment: COLLE CTOR TO SPECIFY Performed By: #### L 400.0001 ####[facility] [address] [place], [address] SCRN MAMM (CAD)W/PORSCHE BILATo n 12-17-2023 SCRN MAMM (CAD)W/PORSCHE BILAT [facility] Imaging Services [address] [place] [address] SCRN MAMM (CAD)W/PORSCHE BILAT MR#: [id number] Acct: [id number] Name: LAISHA ROMERO ANGEL LUIS Rep #: [id number] : 1980 F 43 From: Marek clark MD PCP: Care Physician,No Primary Status: [facility] Study: SCRN MAMM (CAD)W/PORSCHE BILAT Date of Exam: 11/23 08/14 Exam# [id number] Ordering Dr: Liz Iraheta NP DESPATCHING AND RECEIVING CLERK -C [id number] MAMMOGRAPHY - BILATERAL SCREENING REASON FOR EXAM: Female, 43 years old. Routine annual screening examination. PERTINENT HISTORY: Non-contributory. TECHNIQUE: Digital bilateral breast porsche (3D mammographic acquisition) in the CC and MLO projections. 2-D mediolateral oblique (MLO) and craniocaudad (CC) views of both breasts were obtained. CAD: Full Field Digital Mammography with Computer Added Detection was performed. COMPARISON: Comparison is made with prior study December 11, 2022 and November 01, 2021. FINDINGS: Breast Composition: The breasts are extremely dense, which lowers the sensitivity of mammography. There is a 1.7 signed by 1.6 cm well-defined nodule in the slightly upper outer aspect of the right breast. This has increased slightly in size as compared to prior study. Stable 6.6 mm nodule medial inferior aspect of the right breast. These were demonstrated to be small cysts on prior sonogram. Stable small benign-appearing bilateral axillary lymph nodes. No other significant abnormalities are identified. There has been no significant change since the prior study. BI/SCRN MAMM (CAD)W/PORSCHE BILAT IMPRESSION: Stable bilateral screening mammogram. Yearly follow-up mammogram recommended. (A) ASSESSMENT CATEGORY: BIRADS Category 2: Benign. A letter regarding these results will be sent to the patient by the facility within 30 days. Approximately 10% of breast cancers are not detected by mammography. A normal mammogram should not delay biopsy of a clinically suspicious abnormality. [id number] Electronically Signed: Marek Thompson MD at 10:23 EDT , CC: JAXSON Iraheta; No Primary Care Physician Transfer Specialist: Signed Normal [facility] Laboratory - Chemistry and C hemistry - challengeOrdered By: Anibal Meadows on 07-14-2023 HCG ( test) Ql (U) Negative [facility] Comment on above: Very dilute urine sp ecimens, as indicated by a low specificgravity, may not contain employer relations representative levels of hCG. If is still suspected, a first morning urinespecimen should be collected 48 hours later and tested. Absolute lymphocyte countOrd ered By: Pepe Titus on 06-02-2023 Lymphocytes Auto (Unsp spec) [#/Vol] 2.92 10*3/uL 0.83-4.51 [facility] Automated lymphocyte count a s percentage of total leukocytesOrdered By: Pepe Titus on 06-02-2023 Lymphocytes/100 WBC Auto (Unsp spec) 33.6 % 19-41 [facility] Basophil percentageOrdered B y: Pepe Titus on 06-02-2023 Amylase [Catalytic activity/Vol] 59 U/L 25-115 [facility] Basophils/100 WBC (Bld) 0.5 % 0-1 [facility] Bilirubin [Mass/Vol] 0.60 mg/dL 0.20-1.00 [facility] Comment on above: For patients on eltr ombopag therapy, use of [facility] TBIL is not recommended. Chloride [Moles/Vol] 105 mmol/L 98-107 [facility] Eosinophils/100 WBC (Bld) 0.8 % 0-5 [facility] Glucose [Mass/Vol] 92 mg/dL 74-106 [facility] Hemoglobin (Bld) [Mass/Vol] 14.9 g/dL 12.0-15.0 [facility] Monocytes/100 WBC (Bld) 6.9 % 0-10 [facility] Neutrophils (Bld) [#/Vol] 5.0 10*3/uL 2.0-7.7 [facility] Neutrophils/100 WBC (Bld) 57.7 % 47-70 [facility] Potassium [Moles/Vol] 4.0 mmol/L 3.5-5.1 [facility] Protein [Mass/Vol] 8.7 g/dL 6.4-8.2 [facility] Sodium [Moles/Vol] 136 mmol/L 136-145 [facility] WBC (Bld) [#/Vol] 8.7 10*3/uL 4.4-11.0 [facility] Determination of erythrocyte mean corpuscular volume (MCV)Ordered By: Pepe Titus on 06-02-2023 MCV (RBC) [Entitic vol] 91.0 fL 81-99 [facility] Erythrocyte distribution wid th ratioOrdered By: Pepe Titus on 06-02-2023 Erythrocyte distribution width (RBC) [Ratio] 13.3 % 11.6-14.6 [facility] Erythrocyte distribution wid th standard deviationOrdered By: Pepe Titus on 06-02-2023 Erythrocyte distribution width (RBC) [Entitic vol] 44.7 fL 35.1-43.9 [facility] Hematocrit Auto (Bld) [Volum e fraction]Ordered By: Pepe Titus on 06-02-2023 Hematocrit (Bld) [Volume fraction] 46.4 % 37-47 [facility] Immature granulocytes/100 WB C Auto (Bld)Ordered By: Pepe Titus on 06-02-2023 Immature granulocytes/100 WBC (Bld) 0.500 % 0.0-0.9 [facility] Comment on above: IG% - Immature Granu locytes (promyelocytes, myelocytes and metamyelocytes) > 1% indicates that a LEFT SHIFT is Present. Laboratory - Chemistry and C hemistry - challengeOrdered By: Pepe Titus on 06-02-2023 Albumin/Globulin [Mass ratio] 1.1 {ratio} 0.9-2.4 [facility] ALP [Catalytic activity/Vol] 52 U/L 45-117 [facility] ALT [Catalytic activity/Vol] 17 U/L 13-56 [facility] CO2 [Moles/Vol] 26.0 mmol/L 21.0-32.0 [facility] Globulin (S) [Mass/Vol] 4.1 g/dL 2.2-4.2 [facility] Lipase [Catalytic activity/Vol] 36 U/L 13-75 [facility] Comment on above: Please note:LIPASE r evised reference range effective 22. New Lipase methodology. Expected to produce lower values than the previous assay method. NEW Reference Range: 13 - 75 U/L Urea nitrogen/Creatinine [Mass ratio] 11.2 mg/mg 10-20 [facility] Laboratory - Hematology and Cell countsOrdered By: Pepe Titus on 06-02-2023 MCH (RBC) [Entitic mass] 29.2 pg 27.0-32.0 [facility] MCHC (RBC) [Mass/Vol] 32.1 g/dL 32-36 [facility] Nucleated RBC/100 WBC (Bld) [Ratio] 0 % 0-5 [facility] Platelet mean volume (Bld) [Entitic vol] 9.3 fL 6.2-12.0 [facility] Platelets (Bld) [#/Vol] 333 10*3/uL 150-450 [facility] No Panel InformationOrdered By: Pepe Titus on 06-02-2023 Estimated GFR (MDRD) Amer 89 mL/min >60 [facility] Comment on above: GFR Calc Estimated GFR (MDRD) Non-Af Amer 73 mL/min >60 [facility] Comment on above: Non- GFR Calc RBC Auto (Bld) [#/Vol]Ordere d By: Pepe Titus on 06-02-2023 RBC (Bld) [#/Vol] 5.10 10*6/uL 4.2-5.4 [facility] Serum or plasma calcium domenica urement (mass/volume)Ordered By: Pepe Titus on 06-02-2023 Calcium [Mass/Vol] 9.9 mg/dL 8.5-10.1 [facility] Serum or plasma creatinine m easurement (mass/volume)Ordered By: Pepe Titus on 06-02-2023 Creatinine [Mass/Vol] 0.89 mg/dL 0.55-1.02 [facility] Comment on above: The validity of the calculated GFR & GFRAA in patients over 70 years has not been determined. Clinical correlation is essential. Serum or plasma urea nitroge n measurement (mass/volume)Ordered By: Pepe Titus on 06-02-2023 Urea nitrogen [Mass/Vol] 10 mg/dL 7-18 [facility] Thin prep Papanicolaou smear with manual screeningOrdered By: Pepe Titus on 06-02-2023 Thin prep Papanicolaou smear with manual screening 4.6 g/dL 3.2-5.0 [facility] Thin prep Papanicolaou smear with manual screening 16 U/L 15-37 [facility] Thin prep Papanicolaou smear with manual screening 5 5-15 [facility] Cervical or vaginal specimen microscopic examination by liquid based cytology (reportOrdered By: Liz Iraheta on 01-28-2023 Cytology report Cyto stain.thin prep Doc (Cvx/Vag) Comment . [facility] Comment on above: Criteria not met, HP V Genotype not performed.Performed at: - [facility] [address] [place], [place] [id number] Director: Garima Hodges MD, Phone: [phone] at: = - [facility] [address] [place], [place] [id number] Director: Garima Hodges MD, Phone: [phone] Cervical or vagninal specime n microscopic examination by cytology stain (reported asOrdered By: Liz Iraheta on 01-28-2023 Cytology report Cyto stain Doc (Cvx/Vag) Comment . [facility] Comment on above: The Pap smear is a s creening test designed to aid in thedetection of premalignant and malignant conditions of theuterine cervix. It is not a diagnostic procedure andshould not be used as the sole means of detecting cervicalcancer. Both false-positive and false-negative reports dooccur. Detection in cervical specim en of any of human papilloma virus (HPV) 16, 18, 31, 33,Ordered By: Liz Iraheta on 01-28-2023 HPV 16+18+31+33+35+39+45+51+ 52+56+58+59+66+68 DNA Probe+sig amp Ql (Cvx) Negative Negative [facility] Comment on above: This nucleic acid am plification test detects fourteen high-risk HPV types (16,18,31,33,35,39,45,51,52,56,58,59,66,68)without differentiation. Laboratory - CytologyOrdered By: Liz Iraheta on 01-28-2023 Vice President Research Cyto stain Nom (Cvx/Vag) [ID] Comment . [facility] Comment on above: Brenna Reyes, Cyto technologist (ASCP) Laboratory - Miscellaneous t estsOrdered By: Liz Iraheta on 01-28-2023 Service comment (Unsp spec) [Interp] Comment . [facility] Comment on above: This liquid based Th inPrep(R) pap test was screened withthe use of an image guided system. Service comment (Unsp spec) [Interp] . . [facility] No Panel InformationOrdered By: Liz Iraheta on 01-28-2023 Pap Smear QC Review Comment . [facility] Comment on above: Avery Still ytotechnologist ([facility]) Pathology report final diagnosis Narrative Comment . [facility] Comment on above: NEGATIVE FOR INTRAEP ITHELIAL LESION OR MALIGNANCY.THIS SPECIMEN WAS RESCREENED PART OF OUR TOW MOTOR MECHANIC PROGRAM. Laboratory - Chemistry and C hemistry - challengeOrdered By: Yousif Caban on 12-26-2022 HCG ( test) Ql (U) Negative [facility] Comment on above: Very dilute urine sp ecimens, as indicated by a low specificgravity, may not contain employer relations representative levels of hCG. If is still suspected, a first morning urinespecimen should be collected 48 hours later and tested. URINE CULTURE,BACTERIALon URINE CULTURE,BACTERIAL PATIENT: LAISHA MIDDLETON LOCATION: [facility] BILL#: [id number] : 78 AGE: SEX: F ORDERED BY: COLTEN TAYLOR SOURCE: URINE COLLECTED: 12/10/22 15:32 ANTIBIOTICS AT [facility].: RECEIVED : 12/11/22 13:14 SITE: Clean Catch/Voided R E S U L T S URINE CULTURE,BACTERIAL FINAL 12/12/22 08:[address] [facility] Comment on above: Performed By: #### [facility] #### [facility] [address] [place] [address] Atypical perinuclear antineu trophil cytoplasmic antibodies measurementOrdered By: Kim Waggoner on 09-12-2022 Neutrophil cytoplasmic Ab.perinuclear.atypical IF (S) [Titer] <1:20 titer Neg:<1:20 [facility] Comment on above: Serum is slightly li pemic.The atypical pANCA pattern has been observed in asignificant percentage of patients with ulcerative colitis,primary sclerosing cholangitis and autoimmune hepatitis.Performed at: [place] [facility] [address] [id number] Director: Edgar Lanza PhD, Phone: [phone] Basophil percentageOrdered B y: Kim Waggoner on 09-12-2022 Basophil percentage < 0.2 AI 0.0-0.9 [facility] No Panel InformationOrdered By: Kim Waggoner on 09-12-2022 Centromere B Antibody <0.2 AI 0.0-0.9 [facility] Endomysial IgA Antibody Negative Negative [facility] Comment on above: Serum is slightly li pemic. DATA WAREHOUSING SPECIALIST Antibody 0.3 AI 0.0-0.9 [facility] Serum DNA double strand anti body assay (units/volume)Ordered By: Kim Waggoner on 09-12-2022 DNA double strand Ab Qn (S) 1 [IU]/mL 0-9 [facility] Comment on above: Negative <5 Equivoca l 5 - 9 Positive >9 Serum IgA measurement (units /volume)Ordered By: Kim Waggoner on 09-12-2022 IgA Qn (S) 218 mg/dL 87-352 [facility] Serum Stacia-1 antibody assay (u nits/volume)Ordered By: Kim Waggoner on 09-12-2022 Stacia-1 extractable nuclear Ab Qn (S) <0.2 AI 0.0-0.9 [facility] Serum Scl-70 extractable nuc lear antibody assay (units/volume)Ordered By: Kim Waggoner on 09-12-2022 SCL-70 extractable nuclear Ab Qn (S) <0.2 AI 0.0-0.9 [facility] Serum Martínez extractable nucl ear antibody detectionOrdered By: Kim Waggoner on 09-12-2022 Martínez extractable nuclear Ab Ql (S) <0.2 AI 0.0-0.9 [facility] Serum classic neutrophil cyt oplasmic antibody assay (units/volume)Ordered By: Kim Waggoner on 09-12-2022 Neutrophil cytoplasmic Ab.classic Qn (S) <1:20 titer Neg:<1:20 [facility] Comment on above: Serum is slightly li pemic. Serum perinuclear neutrophil cytoplasmic antibody titer by immunofluorescenceOrdered By: Kim Waggoner on 09-12-2022 Neutrophil cytoplasmic Ab.perinuclear IF (S) [Titer] <1:20 titer Neg:<1:20 [facility] Comment on above: Serum is slightly li pemic.The presence of positive fluorescence exhibiting P-ANCA orC-ANCA patterns alone is not specific for the diagnosis ofWegener's Granulomatosis (WG) or microscopic polyangiitis.Decisions about treatment should not be based solely onANCA IFA results. The [employer] ANCA Group Consensusrecommends follow up testing of positive sera with both NY-3 and MPO-ANCA enzyme immunoassays. As many as 5% serumsamples are positive only by EIA. Ref. AM J Clin [id number];111:507-513. Serum tissue transglutaminas e IgA antibody assay (units/volume)Ordered By: Kim Waggoner on 09-12-2022 tTG IgA Qn (S) <2 U/mL 0-3 [facility] Comment on above: Negative 0 - 3 Weak Positive 4 - 10 Positive >10 Tissue Transglutaminase (tTG) has been identified as the endomysial antigen. Studies have demonstr- ated that endomysial IgA antibodies have over 99% specificity for gluten sensitive enteropathy. Basophil percentageon 2022 Basophil percentage 0-5 SEEN /hpf 0-5 [facility] Bilirubin [Mass/Vol] 0.50 mg/dL 0.20-1.00 [facility] Comment on above: For patients on eltr ombopag therapy, use of [facility] TBIL is not recommended. Chloride [Moles/Vol] 107 mmol/L 98-107 [facility] Glucose [Mass/Vol] 89 mg/dL 74-106 [facility] Potassium [Moles/Vol] 4.1 mmol/L 3.5-5.1 [facility] Protein [Mass/Vol] 8.1 g/dL 6.4-8.2 [facility] Sodium [Moles/Vol] 137 mmol/L 136-145 [facility] WBC (Bld) [#/Vol] 6.6 10*3/uL 4.4-11.0 [facility] Bilirubin Test strip Ql (U)o n 09-05-2022 Bilirubin Ql (U) Negative Negative [facility] Blood erythrocytes count (nu mber/volume)on 09-05-2022 RBC (Bld) [#/Vol] 4.63 10*6/uL 4.2-5.4 [facility] Blood hemoglobin measurement (mass/volume)on 09-05-2022 Hemoglobin (Bld) [Mass/Vol] 13.5 g/dL 12.0-15.0 [facility] Blood platelet mean volumeon 09-05-2022 Platelet mean volume (Bld) [Entitic vol] 9.4 fL 6.2-12.0 [facility] Determination of erythrocyte mean corpuscular volume (MCV)on 09-05-2022 MCV (RBC) [Entitic vol] 92.7 fL 81-99 [facility] Hematocrit Auto (Bld) [Volum e fraction]on 09-05-2022 Hematocrit (Bld) [Volume fraction] 42.9 % 37-47 [facility] Ketones Test strip Ql (U)on 09-05-2022 Ketones Ql (U) Negative Negative [facility] Laboratory - Chemistry and C hemistry - challengeon 09-05-2022 ALP [Catalytic activity/Vol] 62 U/L 45-117 [facility] ALT [Catalytic activity/Vol] 21 U/L 13-56 [facility] CO2 [Moles/Vol] 24.0 mmol/L 21.0-32.0 [facility] Globulin (S) [Mass/Vol] 4.0 g/dL 2.2-4.2 [facility] Urea nitrogen/Creatinine [Mass ratio] 13.0 mg/mg 10-20 [facility] Laboratory - Hematology and Cell countson 09-05-2022 Erythrocyte distribution width (RBC) [Entitic vol] 46.4 fL 35.1-43.9 [facility] Erythrocyte distribution width (RBC) [Ratio] 13.6 % 11.6-14.6 [facility] MCH (RBC) [Entitic mass] 29.2 pg 27.0-32.0 [facility] MCHC Auto (RBC) [Mass/Vol]on 09-05-2022 MCHC (RBC) [Mass/Vol] 31.5 g/dL 32-36 [facility] Mucus LM Ql (Urine sed)on Mucus Ql (Urine sed) 0 SEEN /hpf [facility] Nitrite Test strip Ql (U)on 09-05-2022 Nitrite Ql (U) Negative Negative [facility] No Panel Informationon 09-05 Estimated GFR (MDRD) Amer 105 mL/min >60 [facility] Comment on above: GFR Calc Estimated GFR (MDRD) Non-Af Amer 87 mL/min >60 [facility] Comment on above: Non- GFR Calc Platelets bldon 09-05-2022 Platelets (Bld) [#/Vol] 313 10*3/uL 150-450 [facility] Protein Test strip Ql (U)on 09-05-2022 Protein Ql (U) 15 mg/dl Negative [facility] Serum or plasma albumin domenica urement (mass/volume)on 09-05-2022 Albumin [Mass/Vol] 4.1 g/dL 3.2-5.0 [facility] Serum or plasma albumin/glob ulin mass ratioon 09-05-2022 Albumin/Globulin [Mass ratio] 1.0 {ratio} 0.9-2.4 [facility] Serum or plasma calcium domenica urement (mass/volume)on 09-05-2022 Calcium [Mass/Vol] 10.0 mg/dL 8.5-10.1 [facility] Serum or plasma creatinine m easurement (mass/volume)on 09-05-2022 Creatinine [Mass/Vol] 0.77 mg/dL 0.55-1.02 [facility] Comment on above: The validity of the calculated GFR & GFRAA in patients over 70 years has not been determined. Clinical correlation is essential. Serum or plasma urea nitroge n measurement (mass/volume)on 09-05-2022 Urea nitrogen [Mass/Vol] 10 mg/dL 7-18 [facility] Squamous epithelial cells de tection in urine sediment by light microscopyon 09-05-2022 Epithelial cells.squamous LM Ql (Urine sed) 0-5 SEEN /hpf 5-10 [facility] Thin prep Papanicolaou smear with manual screeningon 09-05-2022 Thin prep Papanicolaou smear with manual screening 13 U/L 15-37 [facility] Thin prep Papanicolaou smear with manual screening 6 - [facility] Urine blood detectionon 08-22 RBC Ql (U) 150 /ul Negative [facility] RBC Ql (U) 0 SEEN /hpf 0-5 [facility] Urine clarityon 09-05-2022 Clarity (U) Clear Clear [facility] Urine color determinationon 09-05-2022 Color (U) Yellow Yellow [facility] Urine glucose detectionon Glucose Ql (U) Normal mg/dl Normal [facility] Urine leukocyte esterase det ection by dipstickon 09-05-2022 Leukocyte esterase Test strip Ql (U) Negative Negative [facility] Urine pHon 09-05-2022 pH (U) 5.0 [pH] 5.0 - 8.0 [facility] Urine sediment bacteria coun t by microscopy (number/high power field)on 09-05-2022 Bacteria LM.HPF (Urine sed) [#/Area] 0 /[HPF] None Seen [facility] Urine specific gravity measu rementon 09-05-2022 Specific gravity (U) [Rel density] 1.025 1.002-1.03 0 [facility] Urobilinogen Auto test strip Ql (U)on 09-05-2022 Urobilinogen Ql (U) Normal mg/dl Normal [facility] Office Visit (Family Medicin e)on 11-21-2021 Follow-up visit Diagnoses/Problems Encounter for preventive health examination (V70.0) (Z00.00) Stress disorder, acute (308.3) (F43.0) Situational anxiety (300.09) (F41.8) Orders Health Maintenance Follow-up visit in 1 year Outpatient Follow-up Status: Complete Done: 21Nov2021 Situational anxiety, Stress disorder, acute Start: hydrOXYzine HCl - 10 MG Oral Tablet; may take 1-2 tablets twice daily as needed for stress/anxiety Provider Impressions Situational Anxiety/Stress: Start on Hydroxyzine 10 mg 1-2 tablets twice daily as needed Patient is medically cleared for surgery, no identified increased risk factors. Labs reviewed from 10/2021. Return in 1 year for annual wellness and as needed for illness Chief Complaint Physical/Surgery clearance - 12/12 on anterior lumbar fusion. History of Present Illness The last health maintenance visit was 1 year year(s) ago. Concerns raised today include: needs surgical clearance, complains of weight. The patient's health since the last visit is described as good. There are no interval changes in the patient's PMH, PSH, and current medications. There are no interval changes in the patient's social and family history. She has regular dental visits. She complains of vision problems. Vision care includes wearing glasses and an eye examination within the last year. Lifestyle: She consumes a diverse and healthy diet. She has weight concerns. (paul abernathy has upcoming lumbar fusion surgery and she is highly stressed regarding this, limited in what type of exercise ) She does not exercise regularly. She does not use tobacco. She consumes alcohol. She reports occasional alcohol use. She typically drinks beer and hard liquor. Reproductive health: she reports normal menses. (light 2-3 day, had uterine ablation). History: 3, full term and 34 weeks premature. Cervical cancer screening: cancer screening reviewed and updated . patient has no history of an abnormal pap smear. Breast cancer screening: cancer screening reviewed and current . 11/01/21 last mammogram. Metabolic screening: lipid profile performed within the past five years. Laisha is a 41 yo female here today for a annual physical with work documents to be completed. She is also in need or surgical clearance for upcoming lumbar fusion surgery scheduled on 12/12/21. She states she wants to loose weight however is having sever stress/anxiety related to upcoming surgery and thinks this may be hindering weight loss. She is also limited in the type of activity she is able to perform at this time. She is concerned/fearful of possible complications with lumbar spinal fusion surgery including paralysis, she states they will be performing an anterior approach. She is fearful of loosing her bowel or bladder control. She had appointment with surgeon this week, encouraged to discuss fears and ask questions regarding surgery, post-op, and recovery. Other than above no health concerns. Is interested in medication to help with acute stress/anxiety Review of Systems Constitutional: no chills, no fever and no night sweats. Eyes: no blurred vision and no eyesight problems. ENT: no hearing loss, no nasal congestion, no nasal discharge, no hoarseness and no sore throat. Neck: no mass(es) and no swelling. Cardiovascular: no chest pain, no intermittent leg claudication, no lower extremity edema, no palpitations and no syncope. Respiratory: no cough, no shortness of breath during exertion, no shortness of breath at rest and no wheezing. Gastrointestinal: no abdominal pain, no blood in stools, no constipation, no diarrhea, no melena, no nausea, no rectal pain and no vomiting. Genitourinary: no dysuria, no change in urinary frequency, no urinary hesitancy, no feelings of urinary urgency and no vaginal discharge. Musculoskeletal: back pain, but as noted in HPI, no arthralgias and no myalgias. Integumentary: no new skin lesions and no rashes. Neurological: no difficulty walking, no headache, no limb weakness, no numbness and no tingling. Psychiatric: anxiety, but no depression, no anhedonia and no substance use disorders. Hematologic/Lymphatic: no tendency for easy bleeding and no tendency for easy bruising. 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 Former smoker (V15.82) (Z87.891) started age 14yrs quit age 36 No advance directives (V49.89) (Z78.9) (more content not included)... Normal [facility] Tobacco Screening.on 022 Tobacco use status CPHS b) No [facility] Work Phone: Absolute lymphocyte counton 10-31-2021 Lymphocytes Auto (Unsp spec) [#/Vol] 2.47 10*3/uL 0.83-4.51 [facility] Work Phone: Absolute reticulocyte counto n 10-31-2021 Reticulocytes (Bld) [#/Vol] 0.00 10*3/uL 0-5 [facility] Work Phone: Basophil percentageon 2021 Basophil percentage 3.0 mg/dL 2.5-4.9 [facility] Work Phone: Bilirubin [Mass/Vol] 0.40 mg/dL 0.20-1.00 [facility] Work Phone: [phone] Comment on above: For patients on eltr ombopag therapy, use of [facility] TBIL is not recommended. Chloride [Moles/Vol] 104 mmol/L 98-107 [facility] Work Phone: [phone] Cholesterol [Mass/Vol] 145 mg/dL <200 [facility] Work Phone: [phone] Comment on above: <200 mg/dL Desirable 200-240 mg/dL Borderline >240 mg/dL High Risk Glucose [Mass/Vol] 85 mg/dL 74-106 [facility] Work Phone: Neutrophils (Bld) [#/Vol] 3.1 10*3/uL 2.0-7.7 [facility] Work Phone: [phone] Potassium [Moles/Vol] 3.9 mmol/L 3.5-5.1 [facility] Work Phone: [phone] Protein [Mass/Vol] 7.6 g/dL 6.4-8.2 [facility] Work Phone: Sodium [Moles/Vol] 137 mmol/L 136-145 [facility] Work Phone: [phone] Triglyceride [Mass/Vol] 96 mg/dL <199 [facility] Work Phone: [phone] Comment on above: The drugs N-Acetylcy steine and Metamizole may falsely depress this assay.Serum Triglycerides Reference Interval Normal <150 mg/dL Borderline high 150 - 199 mg/dL High 200 - 499 mg/dL Very High > or = 500 mg/dL WBC (Bld) [#/Vol] 6.3 10*3/uL 4.4-11.0 [facility] Work Phone: Blood erythrocytes count (nu mber/volume)on 10-31-2021 RBC (Bld) [#/Vol] 4.43 10*6/uL 4.2-5.4 [facility] Work Phone: Blood hemoglobin measurement (mass/volume)on 10-31-2021 Hemoglobin (Bld) [Mass/Vol] 13.7 g/dL 12.0-15.0 [facility] Work Phone: [phone] Blood platelet mean volumeon 10-31-2021 Platelet mean volume (Bld) [Entitic vol] 9.3 fL 6.2-12.0 [facility] Work Phone: [phone] Determination of erythrocyte mean corpuscular volume (MCV)on 10-31-2021 MCV (RBC) [Entitic vol] 92.8 fL 81-99 [facility] Work Phone: [phone] Direct bilirubinon Bilirubin.direct [Mass/Vol] 0.08 mg/dL 0.00-0.30 [facility] Work Phone: [phone] Hematocrit Auto (Bld) [Volum e fraction]on 10-31-2021 Hematocrit (Bld) [Volume fraction] 41.1 % 37-47 [facility] Work Phone: [phone] Laboratory - Chemistry and C hemistry - challengeon 10-31-2021 ALP [Catalytic activity/Vol] 51 U/L 45-117 [facility] Work Phone: [phone] ALT [Catalytic activity/Vol] 22 U/L 13-56 [facility] Work Phone: [phone] Cholesterol.total/Choles terol in HDL [Mass ratio] 3.40 {ratio} [facility] Work Phone: [phone] CO2 [Moles/Vol] 28.0 mmol/L 21.0-32.0 [facility] Work Phone: [phone] Globulin (S) [Mass/Vol] 3.6 g/dL 2.2-4.2 [facility] Work Phone: [phone] Urea nitrogen/Creatinine [Mass ratio] 14.1 mg/mg 10-20 [facility] Work Phone: [phone] Laboratory - Hematology and Cell countson 10-31-2021 Erythrocyte distribution width (RBC) [Entitic vol] 43.7 fL 35.1-43.9 [facility] Work Phone: Erythrocyte distribution width (RBC) [Ratio] 12.9 % 11.6-14.6 [facility] Work Phone: [phone] MCH (RBC) [Entitic mass] 30.9 pg 27.0-32.0 [facility] Work Phone: [phone] Nucleated RBC/100 WBC (Bld) [Ratio] 0 % 0-5 [facility] Work Phone: MCHC Auto (RBC) [Mass/Vol]on 10-31-2021 MCHC (RBC) [Mass/Vol] 33.3 g/dL 32-36 [facility] Work Phone: No Panel Informationon 10-31 Estimated GFR (MDRD) Amer 116 mL/min >60 [facility] Work Phone: Comment on above: GFR Calc Estimated GFR (MDRD) Non-Af Amer 96 mL/min >60 [facility] Work Phone: Comment on above: Non- GFR Calc Platelets bldon 10-31-2021 Platelets (Bld) [#/Vol] 324 10*3/uL 150-450 [facility] Work Phone: Segmented neutrophils/100 WB C Auto (Bld)on 10-31-2021 Segmented neutrophils/100 WBC (Bld) 50.1 % 47-70 [facility] Work Phone: [phone] Serum or plasma albumin domenica urement (mass/volume)on 10-31-2021 Albumin [Mass/Vol] 4.0 g/dL 3.2-5.0 [facility] Work Phone: Serum or plasma albumin/glob ulin mass ratioon 10-31-2021 Albumin/Globulin [Mass ratio] 1.1 {ratio} 0.9-2.4 [facility] Work Phone: [phone] Serum or plasma calcium domenica urement (mass/volume)on 10-31-2021 Calcium [Mass/Vol] 8.9 mg/dL 8.5-10.1 [facility] [facility] Work [facility]: Serum or plasma cholesterol in HDL measurement (mass/volume)on 10-31-2021 Cholesterol in HDL [Mass/Vol] 43 mg/dL >40 [facility] Work Phone: Comment on above: The drugs N-Acetylcy steine and Metamizole may falsely depress this assay. Reference Range HDL <40 mg/dL Low HDL Cholesterol HDL >or= 60 mg/dL High HDL Cholesterol Serum or plasma cholesterol in VLDL measurement (mass/volume)on 10-31-2021 Cholesterol in VLDL [Mass/Vol] 19 mg/dL 5-40 [facility] Work Phone: Serum or plasma creatinine m easurement (mass/volume)on 10-31-2021 Creatinine [Mass/Vol] 0.71 mg/dL 0.55-1.02 [facility] Work Phone: Comment on above: The validity of the calculated GFR & GFRAA in patients over 70 years has not been determined. Clinical correlation is essential. Serum or plasma low density lipoprotein (LDL) cholesterol measurement (mass/volume)on 10-31-2021 Cholesterol in LDL [Mass/Vol] 83 mg/dL 0-130 [facility] Work Phone: Serum or plasma urea nitroge n measurement (mass/volume)on 10-31-2021 Urea nitrogen [Mass/Vol] 10 mg/dL 7-18 [facility] Work Phone: Serum or plasma uric acid me asurement (mass/volume)on 10-31-2021 Urate [Mass/Vol] 3.9 mg/dL 2.6-6.0 [facility] Work Phone: Comment on above: The drugs N-Acetylcy steine and Metamizole may falsely depress this assay. Thin prep Papanicolaou smear with manual screeningon 10-31-2021 Thin prep Papanicolaou smear with manual screening 14 U/L 15-37 [facility] Work Phone: Thin prep Papanicolaou smear with manual screening 5 5-15 [facility] Work Phone: [phone] Thin prep Papanicolaou smear with manual screening 148 U/L 84-246 [facility] Work Phone: Clinical Summary: Юлия simms 05-31-2021 MC75 OP Visit Invalid Interpretation Code [facility] Work Phone: Office Visit: dwaynei t with practice, Rm: 43on 05-31-2021 NEGATED: Highlighted rowMRI (magnetic resonance imaging) history of the lumbar spine on 04/07/2021 at [facility] Invalid Interpretation Code [facility] Work Phone: NEGATED: Highlighted rowxray history of the lumbar spine on 01/31/2021 at [facility] Invalid Interpretation Code [facility] Work Phone: Clinical Lists Update: Prelo ad Extendedon 05-30-2021 Tobacco smoking status Tobacco smoking status In valid Interpretation Code [facility] Work Phone: Office Visit (Family Lida cisneros)on 04-20-2021 Follow-up visit Diagnoses/Problems Low back pain (724.2) (M54.50) worsening- Reviewed MRI findings Referral to [facility] per patient request Orders Low back pain Renew: Naproxen 500 MG Oral Tablet; TAKE 1 TABLET EVERY 12 HOURS NEEDED Orthopedic - General Referral Evaluation and Treatment Evaluate AND Treat Status: Hold For - Scheduling Requested for: 20Apr2021 Provider Impressions low back pain- interfering with daily activities. failed PT in January. Pain continues to worsen. Will refer to orthopedics for evaluation. She would like to go to [facility]. Follow up 1 month. continue at home exercises as tolerated. She verbalized understanding of all education provided. She is in agreement with the above plan. Chief Complaint 6 wk f/u, c/o low back pain History of Present Illness Patient presents for a 6 week f/u for her low back pain and MRI results. The patient reports her back pain is unchanged from her prior visit. There is no alleviating factors; aggravating factors are positional. The patient reports completing 8 weeks of PT without noticing any difference in her symptoms. At times her pain radiates down into her legs and hips. Patient declines to take any OTC pain medication for her symptoms stating they don't work. Review of Systems Constitutional: no chills and no fever. Eyes: no eyesight problems. ENT: no earache, no nasal congestion and no sore throat. Cardiovascular: no chest pain and no palpitations. Respiratory: no cough and no wheezing. Gastrointestinal: no constipation, no nausea and no vomiting. Genitourinary: incontinence . periodic episodes of urinary incontinence. Musculoskeletal: back pain. Integumentary: no new skin lesions and no rashes. Neurological: no difficulty walking, no dizziness, no limb weakness, no numbness and no tingling. Psychiatric: no anxiety and no depression. Endocrine: no polyuria and no heat/cold intolerance. 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 Former smoker (V15.82) (Z87.891) started age 14yrs quit age 36 No advance directives (V49.89) (Z78.9) No recent foreign travel Allergies Macrobid Nausea; Vomiting; Recorded By: Matilda Pathak; 10/31/2020 10:41:15 AM NexIUM PACK Dehydration; Diarrhea; Recorded By: Iliana Lucas; 01/30/2021 8:39:36 AM Latex Rash; Recorded By: Matilda Pathak; 10/26/2019 4:49:05 PM Current Meds Medication NameInstructionReason Naproxen 500 MG Oral TabletTAKE 1 TABLET EVERY 12 HOURS NEEDED.Low back pain Collagen Hydrolysate Powder Multi Vitamin Oral Tablet Probiotic CAPS Vitals Vital Signs Recorded: 20Apr2021 02:12PM Heart Rate71 Ggmeafcr203 Fnlrckoco85 Height5 ft 5.98 in Chxtpj846 lb 14.32 oz BMI Saevmnrffu83.79 kg/m2 BSA Calculated1.85 Tobacco Useb) No Physical Exam Constitutional: Alert and in no acute distress. Well developed, well nourished. Cardiovascular: Heart rate and rhythm were normal, normal S1 and S2, no gallops, no murmurs and no pericardial rub. Pulmonary: Clear bilateral breath sounds. Musculoskeletal: Gait and station: Normal. No joint swelling seen, normal movements of all extremities. Range of motion: Normal. Stability: Normal. Muscle strength/tone: Normal. Psychiatric: Judgment and insight: Intact. Alert and oriented x 3. Mood and affect: Normal. Time Time Stamp_UH: Time spent directly with patient/family/caregiver : 29 minutes. Documentation time: 5 minutes. Total time on date of patient encounter: 24 minutes. 'Scores and Scales' Signatures Electronically signed by : ROSS Durbin; Apr 20 2021 4:59PM EST (Author) Normal [employer] Tobacco Screening.on 022 Tobacco use status [facility] b) No [facility]: [facility] Follow-up visit Diagnoses/Problems Abnormal bone xray (793.7) (R93.7) Low back pain (724.2) (M54.50) Orders Abnormal bone xray, Low back pain MRI L Spine without Contrast; Status:Hold For - Scheduling; Requested for:[id number]; Radiologist to Determine Optimal Study : Y Does the patient have a Cochlear Implant, Pacemaker, Defibrilator, Pacing Wire, Brain Aneurysm Clip, Implanted Nerve or Bone Graft Simulator, Implanted Breast Tissue [employer]inct Commanding [employer], Glucose Monitor, or Neulasta Device? : No Is the patient or breast feeding? : No What are the patient's signs and symptoms? : LS spine pain and abnormal XR Low back pain Follow-Up, Recheck Outpatient Follow-up 6 weeks and as needed Status: Hold For - Scheduling Requested for: [id number] Provider Impressions Low back was improving a little, but then worsened again after baking cookies. XRay from [place] reviewed. Will pursue MRI at [place]. Pt. will do her own precert. She will check to see if S1 could be included, Would consider referral to [facility] depending on further PT and MRI results. Follow up 6 weeks to recheck, sooner worsens/changes/concerns 04/11/21 - MRI Lumbar spine from [place] done 04/07/21 with mild deg changes without significant spinal canal stenosis1 1 Amended By: Angélica Brothers; Apr 11 2021 3:31 PM ESTChief Complaint 1 month. History of Present Illness Here to follow up back pain Has been doing PT once weekly. Has had 4 sessions Got a little worse after baking cookies. Used a TENS unit in therapy yesterday. Noticed some areas of numbness during this time. Back pain has improved some but worse again yesterday. No further hypersensitivity. Still the same stiffness and occasional spasm Pain/tenderness Left lower back and into buttocks, right side with brief spasms and slightly less sensation XRay LS done at [facility]. Report reviewed from [facility]. IMPRESSION: Grade 2 anterior listhesis of L5 on S1 with spondylolysis of the pars interarticularis of the L5 vertebrae. Disc space narrowing with subchondral sclerosis at the L5-S1 level. Discussed how her back pain is affecting her life. Had to take something to go to sleep last night. Often wakes up with pain. Would be interested in MRI. Will get done at [place]. If needing to see back surgeon would like to go to [facility]. Review of Systems Review of Systems Constitutional: No fever. Musculoskeletal: Low back pain, tenderness Active Problems Indigestion (536.8) (K30) Low back pain (724.2) (M54.50) Varicose vein of leg (454.9) (I83.90) Surgical History History of Anal sphincterotomy History of section History of Endometrial ablation 01/2020 History of Ureteral stent placement and removal History of Varicose vein ligation right calf, left leg 2020 Family History Family history of malignant neoplasm of kidney (V16.51) (Z80.51) Family history of type 2 diabetes mellitus (V18.0) (Z83.3) Family history of No known problems Social History Employed [employer] at [facility]. Former smoker (V15.82) (Z87.891) started age 14yrs quit age 36 No advance directives (V49.89) (Z78.9) No recent foreign travel Allergies Macrobid Nausea; Vomiting; Recorded By: Matilda Pathak; 10/31/2020 10:41:15 AM NexIUM PACK Dehydration; Diarrhea; Recorded By: Iliana Lucas; 01/30/2021 8:39:36 AM Latex Rash; Recorded By: Matilda Pathak; 10/26/2019 4:49:05 PM Current Meds Medication NameInstructionReason Naproxen 500 MG Oral TabletTAKE 1 TABLET EVERY 12 HOURS NEEDED.Low back pain Collagen Hydrolysate Powder Multi Vitamin Oral Tablet Probiotic CAPS Vitals Vital Signs Recorded: [id number] 02:00PM Heart Rate76 Ieawhckw372 Xvpchkstm70 Height5 ft 6 in Jgrkam987 lb 2 oz BMI Anzbwpbyyn26.01 kg/m2 BSA Calculated1.82 Tobacco Useb) No Physical Exam General: Alert and oriented. No acute distress Eye: Normal conjunctiva HENT: Normocephalic Respiratory: Lungs clear to auscultation, Respirations non labored Cardiovascular: Normal rate, Regular rhythm, no murmur, no gallop, no edema Musculoskeletal: Low mago with tenderness left side, Right side nontender, but slightly less sensation. Patellar and Achilles tendon reflexes OK. Integumentary: Warm, dry, pink Psychiatric: Cooperative 'Scores and Scales' Signatures Electronically signed by : ROSS Martin; Apr 11 2021 3:34PM EST (Author) Normal [employer] Tobacco Screening.on 021 Tobacco use status [facility] b) No M [facility] Work [facility] Follow-up visit Diagnoses/Problems Low back pain (724.2) (M54.50) Orders Low back pain Start: Naproxen 500 MG Oral Tablet; TAKE 1 TABLET EVERY 12 HOURS NEEDED Xray Lumbosacral Spine Complete (Bending); Status:Hold For - Scheduling; Requested for:30Jan2021; Radiologist to Determine Optimal Study : Y What are the patient's signs and symptoms? : Low back pain Follow-Up, Recheck Outpatient Follow-up 1 month to recheck Status: Complete Done: 30Jan2021 SCHEDULED FOR... OV MAR 06 2021 @ 2:00 Physical Therapy - General Referral Evaluation and Treatment Evaluate AND Treat Status: Active Requested for: 30Jan2021 Pt does not wish to schedule appointment at this time. PT WISHES TO SCHEDULE AT [facility] Provider Impressions Has had low back pain for the past 2 months Will get XRay with bending view and start Naproxen PT at [place] since she works there. Follow up 1 month to recheck, sooner worsens, changes, concerns Chief Complaint Back issues. History of Present Illness Here with back issues Had back issues in the past about 10 years ago. Back spasms, etc. Saw Chiropractor at that time and seemed to resolve. Currently back pain x 2 months. Getting worse. A lot of pressure on my sacrum. Worse as the day goes on. Pain level currently 1/10, but by t he end of the day about 5/10. Mostly low back and sacral area. Tightness, pulling pain. Constant. Pain with touch, sharp/tingling Worsens when sitting on tailbone or when has been standing for a while Improves when doesn't sit on sacrum. Not currently seeing Chiropractor No recent XRays Had flu shot on 01/24/21 Review of Systems Review of Systems Constitutional: No fever. Musculoskeletal: Low back pain, tenderness Active Problems Indigestion (536.8) (K30) Varicose vein of leg (454.9) (I83.90) Surgical History History of Anal sphincterotomy History of section History of Endometrial ablation 01/2020 History of Ureteral stent placement and removal History of Varicose vein ligation right calf, left leg 2020 Family History Family history of malignant neoplasm of kidney (V16.51) (Z80.51) Family history of type 2 diabetes mellitus (V18.0) (Z83.3) Family history of No known problems Social History Employed [employer] at [facility]. Former smoker (V15.82) (Z87.891) started age 14yrs quit age 36 No advance directives (V49.89) (Z78.9) No recent foreign travel Allergies Macrobid Nausea; Vomiting; Recorded By: Matilda Pathak; 10/31/2020 10:41:15 AM NexIUM PACK Dehydration; Diarrhea; Recorded By: Iliana Lucas; 01/30/2021 8:39:36 AM Latex Rash; Recorded By: Matilda Pathak; 10/26/2019 4:49:05 PM Current Meds Medication NameInstructionReason Collagen Hydrolysate Powder Multi Vitamin Oral Tablet Probiotic CAPS Vitals Vital Signs Recorded: 30Jan2021 08:39AM Heart Rate68 Fxovqiwy591 Ekxxidnjk37 Height5 ft 6 in Ajgytz222 lb 9 oz BMI Brrcrvzmpg70.59 kg/m2 BSA Calculated1.81 Tobacco Useb) No Physical Exam General: Alert and oriented. No acute distress Eye: Normal conjunctiva HENT: Normocephalic Neck supple Respiratory: Lungs clear to auscultation, Respirations non labored Cardiovascular: Normal rate, Regular rhythm, no murmur, no gallop, no edema Musculoskeletal: Lower back with spinal tenderness. Noticeable shift of one of the lumbar vertebrae with bending forward Neuro: Patellar and posterior tibial reflexes WNL Integumentary: Warm, dry, pink Psychiatric: Cooperative 'Scores and Scales' Signatures Electronically signed by : ROSS Martin; Jan 30 2021 9:11AM EST (Author) Normal Touchworks IO Vision Screeningon 2020 IO Vision Screening 20/20 [facility] Work Phone: IO Vision Screening 20/25 [facility] Work Phone: Tobacco Screening.on 021 Tobacco use status [facility] b) No M [facility] Work Phone: Vital Signs Date Time Vital Sign Value Performing Clinician Facility 10-21-2024 15:35-0400 Body temperature 98.5 [degF] Dr. Sonia Perez MD Work Phone: [facility] 10-21-2024 15:35-0400 Diastolic blood pressure 76 mm[Hg] Dr. Sonia Perez MD Work Phone: [facility] 10-21-2024 15:35-0400 Heart rate 85 /min Dr. Sonia Perez MD Work Phone: [facility] 10-21-2024 15:35-0400 Respiratory rate 17 /min Dr. Sonia Perez MD Work Phone: [facility] 10-21-2024 15:35-0400 SaO2% (BldA) [Mass fraction] 98 % Dr. Sonia Perez MD Work Phone: [facility] 10-21-2024 15:35-0400 Systolic blood pressure 136 mm[Hg] Dr. Sonia Perez MD Work Phone: [facility] 10-13-2024 11:24-0400 Body height 167.6 cm Leticia Ayoub APRN.METALLURGICAL OR MATERIALS TECHNICIAN Work Phone: [facility] 10-13-2024 11:24-0400 Body mass index (BMI) [Ratio] 24.05 kg/m2 Leticia Ayoub APRN.METALLURGICAL OR MATERIALS TECHNICIAN Work Phone: [facility] 10-13-2024 11:24-0400 Body weight 67.6 kg Leticia Ayoub APRN.METALLURGICAL OR MATERIALS TECHNICIAN Work Phone: [facility] 10-12-2024 11:33-0400 Body temperature 98.7 [degF] Dr. Sonia Perez MD Work Phone: [facility] 10-12-2024 11:33-0400 Diastolic blood pressure 78 mm[Hg] Dr. Sonia Perez MD Work Phone: [facility] 10-12-2024 11:33-0400 Heart rate 78 /min Dr. Sonia Perez MD Work Phone: [facility] 10-12-2024 11:33-0400 Respiratory rate 16 /min Dr. Sonia Perez MD Work Phone: [facility] 10-12-2024 11:33-0400 SaO2% (BldA) [Mass fraction] 98 % Dr. Sonia Perez MD Work Phone: [facility] 10-12-2024 11:33-0400 Systolic blood pressure 138 mm[Hg] Dr. Sonia Perez MD Work Phone: [facility] 10-12-2024 08:39-0400 Body height 167.[address] Sonia Perez MD Work Phone: [facility] 10-12-2024 08:39-0400 Body mass index (BMI) [Ratio] 24.2 kg/m2 Dr. Sonia Perez MD Work Phone: [facility] 10-12-2024 08:39-0400 Body weight 68.[address] Sonia Perez MD Work Phone: [facility] 09-22-2024 10:50-0400 Body height 167.6 cm Pacc 3 Work Phone: [facility] 09-22-2024 10:50-0400 Body mass index (BMI) [Ratio] 23.84 kg/m2 Pacc 3 Work Phone: [facility] 09-22-2024 10:50-0400 Body temperature 97.3 [degF] Pacc 3 Work Phone: [facility] 09-22-2024 10:50-0400 Body weight 67 kg Pacc 3 Work Phone: [facility] 09-22-2024 10:50-0400 Diastolic blood pressure 79 mm[Hg] Pacc 3 Work Phone: [facility] 09-22-2024 10:50-0400 Heart rate 79 /min Pacc 3 Work Phone: [facility] 09-22-2024 10:50-0400 Respiratory rate 16 /min Pacc 3 Work Phone: [facility] 09-22-2024 10:50-0400 SaO2% (BldA) [Mass fraction] 100 % Pacc 3 Work Phone: [facility] 09-22-2024 10:50-0400 Systolic blood pressure 125 mm[Hg] Pacc 3 Work Phone: [facility] 08-30-2024 14:37-0400 Body height 170.2 cm Sonia Perez MD Work Phone: [facility] 08-30-2024 14:37-0400 Body mass index (BMI) [Ratio] 23.49 kg/m2 Sonia Perez MD Work Phone: [facility] 08-30-2024 14:37-0400 Body weight 68.04 kg Sonia Perez MD Work Phone: [facility] 08-30-2024 14:37-0400 Diastolic blood pressure 86 mm[Hg] Sonia Perez MD Work Phone: [facility] 08-30-2024 14:37-0400 Heart rate 86 /min Sonia Perez MD Work Phone: [facility] 08-30-2024 14:37-0400 SaO2% (BldA) [Mass fraction] 98 % Sonia Perez MD Work Phone: [facility] 08-30-2024 14:37-0400 Systolic blood pressure 142 mm[Hg] Sonia Perez MD Work Phone: [facility] 06-30-2024 14:15-0400 Body height 167.[address] Sonia Perez MD Work Phone: [facility] 06-30-2024 14:09-0400 Body mass index (BMI) [Ratio] 25.2 kg/m2 Dr. Sonia Perez MD Work Phone: [facility] 06-30-2024 14:09-0400 Body weight 70.[address] Sonia Perez MD Work Phone: [facility] 06-30-2024 14:09-0400 Diastolic blood pressure 72 mm[Hg] Dr. Sonia Perez MD Work Phone: [facility] 06-30-2024 14:09-0400 Systolic blood pressure 118 mm[Hg] Dr. Sonia Perez MD Work Phone: [facility] 03-12-2024 14:32-0500 Body height 169.9 cm Ashlyn Rm MD Work Phone: [facility] 03-12-2024 14:32-0500 Body mass index (BMI) [Ratio] 24.32 kg/m2 Ashlyn Rm MD Work Phone: [facility] 03-12-2024 14:32-0500 Body weight 70.22 kg Ashlyn Rm MD Work Phone: [facility] 03-12-2024 14:32-0500 Diastolic blood pressure 84 mm[Hg] Ashlyn Rm MD Work Phone: [facility] 03-12-2024 14:32-0500 Heart rate 86 /min Ashlyn Rm MD Work Phone: [facility] 03-12-2024 14:32-0500 SaO2% (BldA) [Mass fraction] 98 % Ashlyn Rm MD Work Phone: [facility] 03-12-2024 14:32-0500 Systolic blood pressure 130 mm[Hg] sAhlyn Rm MD Work Phone: [facility] 08-28-2023 14:33-0400 Body height 169.9 cm Sonia Perez MD Work Phone: [facility] 08-28-2023 14:33-0400 Body mass index (BMI) [Ratio] 23.23 kg/m2 Sonia Perez MD Work Phone: [facility] 08-28-2023 14:33-0400 Body weight 67.09 kg Sonia Perez MD Work Phone: [facility] 08-28-2023 14:33-0400 Diastolic blood pressure 82 mm[Hg] Sonia Perez MD Work Phone: [facility] 08-28-2023 14:33-0400 Heart rate 73 /min Sonia Perez MD Work Phone: [facility] 08-28-2023 14:33-0400 SaO2% (BldA) [Mass fraction] 98 % Sonia Perez MD Work Phone: [facility] 08-28-2023 14:33-0400 Systolic blood pressure 114 mm[Hg] Sonia Perez MD Work Phone: [facility] 07-14-2023 10:55-0400 Body temperature 97.2 [degF] Dr. Reed Herrera Work Phone: [facility] 07-14-2023 10:55-0400 Diastolic blood pressure 68 mm[Hg] Dr. Reed Herrera Work Phone: [facility] 07-14-2023 10:55-0400 Heart rate 56 /min Dr. Reed Herrera Work Phone: [facility] 07-14-2023 10:55-0400 Respiratory rate 16 /min Dr. Reed Herrera Work Phone: [facility] 07-14-2023 10:55-0400 SaO2% (BldA) [Mass fraction] 98 % Dr. Reed Herrera Work Phone: [facility] 07-14-2023 10:55-0400 Systolic blood pressure 102 mm[Hg] Dr. Reed Herrera Work Phone: [facility] 07-14-2023 06:39-0400 Body height 167.[address] Reed Herrera Work Phone: [facility] 07-14-2023 06:39-0400 Body mass index (BMI) [Ratio] 23.5 kg/m2 Dr. Reed Herrera Work Phone: [facility] 07-14-2023 06:39-0400 Body weight [address] Reed Herrera Work Phone: [facility] 05-30-2023 14:10-0500 Body height 167.[address] Reed Herrera Work Phone: [facility] 05-30-2023 14:10-0500 Body mass index (BMI) [Ratio] 23.9 kg/m2 Dr. Reed Herrera Work Phone: [facility] 05-30-2023 14:10-0500 Body temperature 98 [degF] Dr. Reed Herrera Work Phone: [facility] 05-30-2023 14:10-0500 Body weight 67.[address] Reed Herrera Work Phone: [facility] 05-30-2023 14:10-0500 Diastolic blood pressure 87 mm[Hg] Dr. Reed Herrera Work Phone: [facility] 05-30-2023 14:10-0500 Heart rate 92 /min Dr. Reed Herrera Work Phone: [facility] 05-30-2023 14:10-0500 Respiratory rate 18 /min Dr. Reed Herrera Work Phone: [facility] 05-30-2023 14:10-0500 SaO2% (BldA) [Mass fraction] 100 % Dr. Reed Herrera Work Phone: [facility] 05-30-2023 14:10-0500 Systolic blood pressure 146 mm[Hg] Dr. Reed Herrera Work Phone: [facility] 01-28-2023 14:11-0500 Body height 167.[address] Octavio Rodríguez Work Phone: [facility] 01-28-2023 14:03-0500 Body mass index (BMI) [Ratio] 24.9 kg/m2 Dr. Octavio Rodríguez Work Phone: [facility] 01-28-2023 14:03-0500 Body weight 70.[address] Octavio Rodríguez Work Phone: [facility] 01-28-2023 14:03-0500 Diastolic blood pressure 80 mm[Hg] Dr. Octavio Rodríguez Work Phone: [facility] 01-28-2023 14:03-0500 Systolic blood pressure 124 mm[Hg] Dr. Octavio Rodríguez Work Phone: [facility] 12-26-2022 07:35-0400 Body temperature 98.9 [degF] No Primary Care Physician [facility] 12-26-2022 07:35-0400 Diastolic blood pressure 69 mm[Hg] No Primary Care Physician [facility] 12-26-2022 07:35-0400 Heart rate 78 /min No Primary Care Physician [facility] 12-26-2022 07:35-0400 Respiratory rate 16 /min No Primary Care Physician [facility] 12-26-2022 07:35-0400 SaO2% (BldA) [Mass fraction] 100 % No Primary Care Physician [facility] 12-26-2022 07:35-0400 Systolic blood pressure 108 mm[Hg] No Primary Care Physician [facility] 12-26-2022 06:26-0400 Body height 167.64 cm No Primary Care Physician [facility] 12-26-2022 06:26-0400 Body mass index (BMI) [Ratio] 25.6 kg/m2 No Primary Care Physician [facility] 12-26-2022 06:26-0400 Body weight 72 kg No Primary Care Physician [facility] 12-10-2022 17:23-0400 Body height 170.1 cm Estephania Red Other Phone: [facility] 12-10-2022 17:23-0400 Body temperature 98.24 [degF] Estephania Teofilo Other Phone: [facility] 12-10-2022 17:23-0400 Diastolic blood pressure 88 mm[Hg] Estephania Teofilo Other Phone: [facility] 12-10-2022 17:23-0400 Heart rate 85 /min Estephania Teofilo Other Phone: [facility] 12-10-2022 17:23-0400 SaO2% (BldA) [Mass fraction] 97 % Estephania Canyon Other Phone: [facility] 12-10-2022 17:23-0400 Systolic blood pressure 129 mm[Hg] Estephania Teofilo Other Phone: [facility] 10-29-2022 08:27-0400 Body height 167.6 cm Ulises HAWKINS Work Phone: [facility] 10-29-2022 08:27-0400 Body mass index (BMI) [Ratio] 27.18 kg/m2 Ulises Cecil [employer]-METALLURGICAL OR MATERIALS TECHNICIAN Work Phone: [facility] 10-29-2022 08:27-0400 Body weight 76.39 kg Ulises Angeles [employer]-METALL[employer]GICAL OR MATERIALS TECHNICIAN Work Phone: [facility] 10-29-2022 08:27-0400 Diastolic blood pressure 74 mm[Hg] Ulises Angeles [employer]-METALLURGICAL OR MATERIALS TECHNICIAN Work Phone: [facility] 10-29-2022 08:27-0400 Heart rate 76 /min Ulises Angeles [employer]-METALL[employer]ICAL OR MATERIALS TECHNICIAN Work Phone: [facility] 10-29-2022 08:27-0400 Systolic blood pressure 118 mm[Hg] Ulises Angeles [employer]-METALL[employer]GICAL OR MATERIALS TECHNICIAN Work Phone: [facility] 10-01-2022 09:37-0400 Body height 167.6 cm Ulises Cecil [employer]-METALLURGICAL OR MATERIALS TECHNICIAN Work Phone: [facility] 10-01-2022 09:37-0400 Body mass index (BMI) [Ratio] 27.76 kg/m2 Ulises Cecil [employer]-METALLURGICAL OR MATERIALS TECHNICIAN Work Phone: [facility] 10-01-2022 09:37-0400 Body weight 78.02 kg Ulises Cecil [employer]-METALLURGICAL OR MATERIALS TECHNICIAN Work Phone: [facility] 10-01-2022 09:37-0400 Diastolic blood pressure 70 mm[Hg] Ulises Angeles [employer]-METALL[employer]GICAL OR MATERIALS TECHNICIAN Work Phone: [facility] 10-01-2022 09:37-0400 Heart rate 77 /min Ulises Cecil [employer]-METALL[employer]GICAL OR MATERIALS TECHNICIAN Work Phone: [facility] 10-01-2022 09:37-0400 Systolic blood pressure 122 mm[Hg] Ulises Cecil [employer]-METALL[employer]GICAL OR MATERIALS TECHNICIAN Work Phone: [facility] 09-06-2022 15:16-0400 Body height 167.64 cm No Primary Care Physician [facility] 09-06-2022 15:16-0400 Body mass index (BMI) [Ratio] 28.8 kg/m2 No Primary Care Physician [facility] 09-06-2022 15:16-0400 Body weight 81.19 kg No Primary Care Physician [facility] 09-06-2022 15:16-0400 Diastolic blood pressure 91 mm[Hg] No Primary Care Physician [facility] 09-06-2022 15:16-0400 Heart rate 71 /min No Primary Care Physician [facility] 09-06-2022 15:16-0400 SaO2% (BldA) [Mass fraction] 98 % No Primary Care Physician [facility] 09-06-2022 15:16-0400 Systolic blood pressure 138 mm[Hg] No Primary Care Physician [facility] 06-25-2022 08:58-0400 Body height 167.6 cm Ulises Reynoso [employer]-METALL[employer]GICAL OR MATERIALS TECHNICIAN Work Phone: [facility] 06-25-2022 08:58-0400 Body mass index (BMI) [Ratio] 28.07 kg/m2 Ulises Reynoso [employer]-METALLURGICAL OR MATERIALS TECHNICIAN Work Phone: [facility] 06-25-2022 08:58-0400 Body weight 78.88 kg Ulises Reynoso [employer]-METALLURGICAL OR MATERIALS TECHNICIAN Work Phone: [facility] 06-25-2022 08:58-0400 Diastolic blood pressure 80 mm[Hg] Ulises Reynoso [employer]-METALL[employer]GICAL OR MATERIALS TECHNICIAN Work Phone: [facility] 06-25-2022 08:58-0400 Heart rate 75 /min Ulises Reynoso [employer]-METALL[employer]GICAL OR MATERIALS TECHNICIAN Work Phone: [facility] 06-25-2022 08:58-0400 Systolic blood pressure 114 mm[Hg] Ulises Reynoso [employer]-METALLURGICAL OR MATERIALS TECHNICIAN Work Phone: [facility] 05-03-2022 16:03-0500 Body height 167.64 cm No Primary Care Physician [facility] 05-03-2022 16:03-0500 Body temperature 98.2 [degF] No Primary Care Physician [facility] 05-03-2022 16:03-0500 Diastolic blood pressure 82 mm[Hg] No Primary Care Physician [facility] 05-03-2022 16:03-0500 Heart rate 76 /min No Primary Care Physician [facility] 05-03-2022 16:03-0500 Respiratory rate 18 /min No Primary Care Physician [facility] 05-03-2022 16:03-0500 SaO2% (BldA) [Mass fraction] 99 % No Primary Care Physician [facility] 05-03-2022 16:03-0500 Systolic blood pressure 110 mm[Hg] No Primary Care Physician [facility] 05-03-2022 15:52-0500 Body temperature 98 [degF] [facility] 05-03-2022 15:52-0500 Diastolic blood pressure 78 mm[Hg] [facility] 05-03-2022 15:52-0500 Heart rate 105 /min [facility] 05-03-2022 15:52-0500 Respiratory rate 16 /min [facility] 05-03-2022 15:52-0500 SaO2% (BldA) [Mass fraction] 99 % [facility] 05-03-2022 15:52-0500 Systolic blood pressure 124 mm[Hg] [facility] 04-23-2022 16:12-0500 Body temperature 98.8 [degF] [facility] 04-23-2022 16:12-0500 Diastolic blood pressure 80 mm[Hg] [facility] 04-23-2022 16:12-0500 Heart rate 127 /min [facility] 04-23-2022 16:12-0500 Respiratory rate 16 /min [facility] 04-23-2022 16:12-0500 SaO2% (BldA) [Mass fraction] 98 % [facility] 04-23-2022 16:12-0500 Systolic blood pressure 130 mm[Hg] [facility] 01-22-2022 11:09-0400 Body height 167.64 cm ULISES [facility] Work Phone: 01-22-2022 11:02-0400 Body mass index (BMI) [Ratio] 28.4 kg/m2 [facility] 01-22-2022 11:02-0400 Body weight 79.94 kg [facility] 01-22-2022 11:02-0400 Diastolic blood pressure 72 mm[Hg] [facility] 01-22-2022 11:02-0400 Systolic blood pressure 130 mm[Hg] [facility] 11-21-2021 10:52-0400 Body height 167.64 cm Ulises Halld Work Phone: [facility] Work Phone: 11-21-2021 10:52-0400 Body mass index (BMI) [Ratio] 27.16 kg/m2 Ulises Halld Work Phone: [facility] Work Phone: 11-21-2021 10:52-0400 Body surface area Derived from formula 1.86 m2 Ulises Halld Work Phone: [facility] Work Phone: 11-21-2021 10:52-0400 Body weight 76.32 kg Ulises Halld Work Phone: [facility] Work Phone: 11-21-2021 10:52-0400 Diastolic blood pressure 64 mm[Hg] Ulises Halld Work Phone: [facility] Work Phone: 11-21-2021 10:52-0400 Heart rate 58 /min Ulises Halld Work Phone: [facility] Work Phone: 11-21-2021 10:52-0400 Systolic blood pressure 122 mm[Hg] Ulises Aly Cecil Work Phone: [facility] Work Phone: 04-20-2021 14:12-0500 Body height 167.6 cm Elvia Art Work Phone: [facility] Work Phone: 04-20-2021 14:12-0500 Body mass index (BMI) [Ratio] 26.79 kg/m2 Elvia Art Work Phone: [facility] Work Phone: 04-20-2021 14:12-0500 Body surface area Derived from formula 1.85 m2 Elvia Art Work Phone: [facility] Work Phone: 04-20-2021 14:12-0500 Body weight 75.25 kg Elvia Art Work Phone: [facility] Work Phone: 04-20-2021 14:12-0500 Diastolic blood pressure 64 mm[Hg] Elvia Art Work Phone: [facility] Work Phone: 04-20-2021 14:12-0500 Heart rate 71 /min Elvia Art Work Phone: [facility] Work Phone: 04-20-2021 14:12-0500 Systolic blood pressure 110 mm[Hg] Elvia Art Work Phone: [facility] Work Phone: 03-06-2021 14:00-0500 Body height 167.64 cm Elvia Art Work Phone: [facility] Work Phone: 03-06-2021 14:00-0500 Body mass index (BMI) [Ratio] 26.01 kg/m2 Elvia Art Work Phone: [facility] Work Phone: 03-06-2021 14:00-0500 Body surface area Derived from formula 1.82 m2 Elvia Art Work Phone: [facility] Work Phone: 03-06-2021 14:00-0500 Body weight 73.09 kg Elvia Art Work Phone: [facility] Work Phone: 03-06-2021 14:00-0500 Diastolic blood pressure 80 mm[Hg] Elvia Art Work Phone: [facility] Work Phone: 03-06-2021 14:00-0500 Heart rate 76 /min Elvia Art Work Phone: [facility] Work Phone: 03-06-2021 14:00-0500 Systolic blood pressure 128 mm[Hg] Elvia Art Work Phone: [facility] Work Phone: 10-31-2020 10:48-0400 Body height 167.64 cm Elvia Art Work Phone: [facility] Work Phone: 10-31-2020 10:48-0400 Body mass index (BMI) [Ratio] 25.82 kg/m2 Elvia Art Work Phone: [facility] Work Phone: 10-31-2020 10:48-0400 Body surface area Derived from formula 1.82 m2 Elvia Art Work Phone: [facility] Work Phone: 10-31-2020 10:48-0400 Body weight 72.57 kg Elvia Art Work Phone: [facility] Work Phone: 10-31-2020 10:48-0400 Diastolic blood pressure 64 mm[Hg] Elvia Art Work Phone: [facility] Work Phone: 10-31-2020 10:48-0400 Heart rate 67 /min Elvia Art Work Phone: [facility] Work Phone: 10-31-2020 10:48-0400 Systolic blood pressure 110 mm[Hg] Elvia Art Work Phone: [facility] Work Phone: NEGATED: Highlighted [id number] 15:14-0500 Body height 168.91 cm Cecily Thomas AT [facility] Work Phone: NEGATED: Highlighted [id number] 15:14-0500 Body height 169 cm Cecily Thomas AT [facility] Work Phone: NEGATED: Highlighted [id number] 15:14-0500 Body mass index (BMI) [Ratio] 25.69 kg/m2 Cecily Thomas AT [facility] Work Phone: NEGATED: Highlighted [id number] 15:14-0500 Body weight 73.03 kg Cecily Thomas AT [facility] Work Phone: NEGATED: Highlighted [id number] 15:14-0500 Body weight 73 kg Cecily Thomas AT [facility] Work Phone: Encounters Encounter Date Encounter Type Care Provider Facility Start: 10-21-2024 End: 10-21-2024 Patient encounter procedure Mario Avalos [facility] Work Phone: Start: 10-21-2024 End: 10-21-[address] Sonia Perez MD Work Phone: [facility] Start: 10-13-2024 End: 10-13-2024 Patient encounter procedure Leticia Ayoub APRN.METALLURGICAL OR MATERIALS TECHNICIAN Work Phone: Colorectal Surgery Comment on above: Infection following procedure; Abscess of anal and rectal regions; Encounter for surgical aftercare following surgery on the digestive system Start: 10-13-2024 End: 10-13-2024 ambulatory SONIA GARZA Facility:[facility] Start: 10-12-2024 End: 10-12-2024 Telephone encounter Clare Mobley DO Work Phone: Colorectal Surgery Comment on above: Patient Update Start: 10-12-2024 End: 10-12-2024 Emergency department patient visit Dr. Sonia Perez MD Work Phone: -Emergency Department Work Phone: Start: 10-11-2024 End: 10-11-2024 Telephone encounter Clare Mobley DO Work Phone: Colorectal Surgery Comment on above: Patient Question Start: 10-08-2024 End: 10-08-2024 ambulatory [facility] Facility:[facility] Start: 09-22-2024 End: 09-22-2024 Admission to establishment [place] [id number] Work Phone: Pre Anesthesia Start: 09-22-2024 End: 09-22-2024 Anesthesia consultation [place] [id number] Work Phone: Pre Anesthesia Comment on above: Post-operative nause a and vomiting (Primary Dx); Pre-op evaluation; Gastroesophageal reflux disease without esophagitis; History of hydronephrosis Start: 09-22-2024 End: 09-22-2024 Preprocedural examination done [place] [id number] Work Phone: [facility] Work Phone: Start: 09-22-2024 End: 09-22-2024 [facility] Start: 09-22-2024 Encounter for other preprocedural examination [facility] Start: 09-10-2024 ambulatory SONIA GARZA Facility :[facility] Start: 09-10-2024 End: 09-10-2024 Subsequent hospital visit by physician [facility] Qb[facility] (I-Stat) Radiology Comment on above: Rectal prolapse [K62 .3] Start: 09-08-2024 Registered Referred HEALTH RIS K ASSESSMENT -Employee Health Start: 09-08-2024 ambulatory Health Risk Assessment Facility:[facility] Start: 08-30-2024 End: 08-30-2024 Patient encounter procedure Sonia Perez MD Work Phone: [facility] Work Phone: Start: 08-30-2024 End: 08-30-2024 Periodic preventive med est patient 40-64yrs Sonia Perez MD Work Phone: [facility] Comment on above: Annual physical exam (Primary Dx); Chronic bilateral low back pain with right-sided sciatica; Chronic right SI joint pain; Screening, lipid; Screening for diabetes mellitus Start: 08-30-2024 End: 08-30-2024 ambulatory [facility] Start: 08-30-2024 End: 08-30-2024 Encounter for general adult medical examination without abnormal findings [facility] Start: 08-10-2024 End: 08-11-2024 Admission to same day surgery center Leticia Ayoub APRN.CNP Work Phone: Colorectal Surgery Comment on above: Manometry Start: 08-10-2024 End: 08-11-2024 Patient encounter procedure Leticia Ayoub APRN.CNP Work Phone: Colorectal Surgery Start: 08-10-2024 End: 08-11-2024 ambulatory REED HERRERA Facility:[facility] Start: 06-30-2024 End: 06-30-2024 Patient encounter procedure Liz Iraheta NP-C -[facility] [place] Work Phone: Start: 06-30-2024 End: 06-30-[address] Sonia Perez MD Work Phone: [facility] Work Phone: Start: 06-30-2024 End: 06-30-2024 ambulatory Liz Iraheta Facility:[facility] Start: 04-12-2024 End: 07-12-2024 Transcribe Orders Unknown Practice A Work Phone: [facility] Urogyne[facility] Comment on above: Rectocele (Primary D x) Start: 04-03-2024 Encounter for other preprocedural examination Octavio Rodríguez [facility] Start: 03-12-2024 End: 03-12-2024 Office outpatient visit 15 minutes Ashlyn Rm MD Work Phone: [facility] Comment on above: Lesion of tongue (Pr imary Dx) Start: 03-12-2024 End: 03-12-2024 ambulatory ASHLYN RM [facility] Start: 03-10-2024 End: 03-10-2024 Patient encounter procedure [facility] Start: 03-10-2024 End: 03-10-2024 [facility] Work Phone: Start: 03-10-2024 End: 03-10-2024 ambulatory Sonia Perez Facility:[facility] Start: 03-10-2024 End: 03-10-2024 ambulatory Sonia Perez Facility:[facility] Start: 03-01-2024 End: 03-01-2024 ambulatory Sonia Perez Facility:[facility] Start: 02-02-2024 Encounter for gynecological examination (general) (routine) without abnormal findings Liz Iraheta [facility] Start: 02-02-2024 End: 02-02-2024 ambulatory Liz Iraheta Facility:[facility] Start: 12-31-2023 End: 12-31-2023 ambulatory Kerry Barnhart Facility:[facility] Start: 12-29-2023 End: 12-29-2023 ambulatory Kerry Barnhart Facility:[facility] Start: 12-25-2023 End: 12-26-2023 ambulatory Kerry Barnhart Facility:[facility] Start: 12-25-2023 End: 12-25-2023 ambulatory Kerry Barnhart Facility:[facility] Start: 12-17-2023 End: 12-17-2023 ambulatory Liz Iraheta Facility:[facility] Start: 08-28-2023 End: 08-28-2023 Patient encounter procedure Sonia Perez MD Work Phone: [facility] Work Phone: Start: 08-28-2023 End: 08-28-2023 Periodic preventive med est patient 40-64yrs Sonia Perez MD Work Phone: [facility] Comment on above: Annual physical exam (Primary Dx); Gastroesophageal reflux disease without esophagitis Start: 07-14-2023 Non-patient / Non-visit Dr. Castro Work Phone: [facility] Start: 07-14-2023 End: 07-14-2023 Admission to same day surgery center Dr. Reed Herrera Work Phone: [facility]-Surgical Day Care Start: 07-14-2023 End: 07-14-[address] Reed Herrera Work Phone: [facility] Work Phone: Start: 06-02-2023 End: 06-02-[address] Reed Herrera Work Phone: [facility] Work Phone: Start: 06-02-2023 End: 06-02-[address] Reed Herrera Work Phone: [facility], [facility] Start: 05-30-2023 End: 05-30-[address] Reed Herrera Work Phone: [facility] Work Phone: Start: 05-23-2023 End: 05-23-2023 ambulatory No Primary Care Physician [facility] Work Phone: Start: 05-23-2023 End: 05-23-2023 Patient encounter procedure No Primary Care Physician [facility]-Nuclear Medicine, [facility] Work Phone: Start: 05-06-2023 End: 05-06-2023 ambulatory ULISES REYNOSO [facility] Work Phone: Start: 05-06-2023 End: 05-06-2023 Patient encounter procedure ULISES REYNOSO [facility]-Ultrasound, [facility] Work Phone: Start: 01-28-2023 End: 01-28-[address] Octavio Rodríguez Work Phone: [facility] Work Phone: Start: 01-28-2023 End: 01-28-[address] Octavio Rodríguez Work Phone: [facility]-Laboratory, Specimen Work Phone: Start: 01-28-2023 End: 01-28-[address] Octavio Rodríguez Work Phone: [facility] [place] Work Phone: Start: 01-20-2023 End: 01-20-[address] Octavio Rodríguez Work Phone: [facility] Gastroenterology Work Phone: Start: 12-26-2022 Non-patient / Non-visit No [facility] Physician [facility] Start: 12-26-2022 End: 12-26-2022 Admission to same day surgery center No Primary Care Physician [facility]-Endoscopy Work Phone: Start: 12-26-2022 End: 12-26-2022 ambulatory No Primary Care Physician [facility] Work Phone: Start: 12-11-2022 End: 12-11-2022 ambulatory No Primary Care Physician [facility] Work Phone: Start: 12-11-2022 End: 12-11-2022 Patient encounter procedure No Primary Care Physician [facility]-Outpatient Breast Imaging Work Phone: Start: 12-10-2022 End: 12-10-2022 Emergency department patient visit Colten Taylor [facility] Start: 10-29-2022 End: 10-29-2022 Patient encounter status Ulises Halld [employer]-METALLURGICAL OR MATERIALS TECHNICIAN Work Phone: [facility] Work Phone: Start: 10-29-2022 End: 10-29-2022 Periodic preventive med est patient 18-39 yrs Ulises Reynoso [employer]-METALLURGICAL OR MATERIALS TECHNICIAN Work Phone: [facility] Comment on above: Skin abnormality (Pr imary Dx); Epigastric abdominal pain; Wellness examination Start: 10-01-2022 End: 10-01-2022 Office outpatient visit 15 minutes Ulises Reynoso [employer]-METALLURGICAL OR MATERIALS TECHNICIAN Work Phone: [facility] Comment on above: Epigastric abdominal pain (Primary Dx) Start: 09-27-2022 End: 09-27-2022 ambulatory No Primary Care Physician [facility] Work Phone: Start: 09-27-2022 End: 09-27-2022 Patient encounter procedure No Primary Care Physician [facility]-Nuclear Medicine, [facility] Work Phone: Start: 09-25-2022 End: 09-25-2022 ambulatory No Primary Care Physician [facility] Work Phone: Start: 09-25-2022 End: 09-25-2022 Patient encounter procedure No Primary Care Physician [facility]-Radiology, [facility] Work Phone: Start: 09-12-2022 End: 09-12-2022 ambulatory No Primary Care Physician [facility] Work Phone: Start: 09-12-2022 End: 09-12-2022 Patient encounter procedure No Primary Care Physician [facility]atory, [facility] Start: 09-06-2022 End: 09-06-2022 Patient encounter procedure No Primary Care Physician [facility] Gastroenterology Start: 09-05-2022 End: 09-05-2022 Patient encounter procedure No Primary Care Physician [facility]-Laboratory Start: 06-25-2022 End: 06-25-2022 Office outpatient visit 15 minutes Ulises Aly Angeles [employer]-METALLURGICAL OR MATERIALS TECHNICIAN Work Phone: [facility] Comment on above: Gastroesophageal ref lux disease without esophagitis (Primary Dx); Epigastric abdominal pain; Indigestion Start: 06-20-2022 End: 06-20-2022 ambulatory No Primary Care Physician [facility] Work Phone: Start: 06-20-2022 End: 06-20-2022 Patient encounter procedure No Primary Care Physician [facility]-Cat Scan, [facility] Start: 06-07-2022 End: 06-07-2022 ambulatory No Primary Care Physician [facility] Work Phone: Start: 06-07-2022 End: 06-07-2022 Patient encounter procedure No Primary Care Physician [facility]-Radiology, [facility] Start: 05-17-2022 End: 05-17-2022 Patient encounter procedure No Primary Care Physician [facility] Start: 05-03-2022 End: 05-03-2022 Patient encounter procedure [facility]ISES [facility] Start: 04-23-2022 End: 04-23-2022 ambulatory [facility] Work Phone: Start: 04-23-2022 End: 04-23-2022 Patient encounter procedure [facility] Start: 01-25-2022 End: 01-25-2022 ambulatory [facility] Work Phone: Start: 01-25-2022 End: 01-25-2022 Discharged Recurring ULISES [facility]Physical Therapy Start: 01-22-2022 End: 01-22-[address] [facility] Start: 11-21-2021 Office outpatient vi sit 15 minutes Ulises Reynoso Work Phone: [facility] Work Phone: Start: 11-21-2021 Patient encounter procedure Ulises Reynoso Work Phone: [facility] Work Phone: Start: 11-01-2021 End: 11-01-2021 Patient encounter procedure [facility]-Outpatient Breast Imaging Start: 10-31-2021 Registered [facility]Laboratory Start: 04-20-2021 Office outpatient vi sit 25 minutes Elvia Art Work Phone: [facility] Work Phone: Start: 03-07-2021 AUDIT Evlia Purvis rosalinda Work Phone: [facility] Work Phone: Start: 03-06-2021 Office outpatient vi sit 15 minutes Elvia Art Work Phone: [facility] Work Phone: Start: 10-31-2020 Periodic preventive med est patient 40-64yrs Elvia Art Work Phone: [facility] Work Phone: Start: 11-18-2017 End: 11-19-2017 Patient encounter Estephania Red Facility:[facility] Start: 03-04-2017 End: 03-05-2017 Patient encounter Fordyce Brent Teofilo Facility:[facility] Procedures Date Procedure Procedure Detail Performing Clinician Start: 10-12-2024 CT of pelvis with contrast Dr. Sonia Perez MD Work Phone: Start: 10-12-[address] Sonia Perez MD Work Phone: Start: 09-10-2024 Radiologic exam colo n single contrast study Clare Mobley DO Work Phone: Start: 09-08-2024 Serum inorganic phos phate measurement Dr. Sonia Perez MD Work Phone: Start: 08-10-2024 [facility]ULT [place] [facility] Leticia Ayoub APRN.CNP Work Phone: Start: 03-01-2024 Colonoscopy Ashlyn Rm MD Work Phone: Start: 07-14-[address] Cari Herrera Work Phone: Start: 07-14-2023 Fluoroscopic guidance Brent Herrera Work Phone: Start: 07-14-2023 Total cholecystectom y and exploration of common bile duct Dr. Reed Herrera Work Phone: Start: 05-23-2023 Radionuclide imaging of liver and/or biliary tract using radioactive isotope No Primary Care Physician Start: 05-06-2023 Ultrasonography of abdomen ULISES REYNOSO Start: 12-26-2022 Esophagogastroduodenoscopy No Primary Care Physician Start: 12-11-2022 Ultrasonography of breast No Primary Care Physician Start: 12-11-2022 Screening mammography N o Primary Care Physician Start: 09-27-2022 Radionuclide gastric emptying study No Primary Care Physician Start: 09-25-2022 Radiography of esophagus No Primary Care Physician Start: 06-20-2022 CT of lumbar spine No P rimary Care Physician Start: 06-07-2022 X-ray of lumbosacral spine No Primary Care Physician Start: 04-23-2022 X-ray of lumbosacral spine ULISES REYNOSO Start: 11-01-2021 Screening mammography Start: 05-31-2021 End: 06-04-2021 BP scrn no perf at interval Jasen garcía DO Work Phone: Start: 05-31-2021 End: 06-04-2021 Calc BMI abv up tyler f/u Jasen Smart DO Work Phone: Start: 05-31-2021 End: 06-04-2021 Current tobacco non-user cad cap copd pv dm Jasen Smart DO Work Phone: Start: 05-31-2021 End: 06-04-2021 Docrev cur meds by elig clin Jasen medeiros DO Work Phone: Start: 05-31-2021 End: 06-04-2021 No doc of pain Jasen Smart DO Work Phone: Start: 05-31-2021 End: 06-04-2021 Patient encounter procedure Jasen garcía DO Work Phone: Start: 08-05-2019 Mammography Ulises Reynoso [employer]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 Insertion of uretera l stent with ureterotomy Elvia Art Work Phone: Comment on above: and removal; Ligation of varicose vein Ra alyson Art Work Phone: Comment on above: right calf, left leg 2020; NEGATED: Highlighted rowStart: 05-31-2021 End: 05-31-2021 Documentation of current medications Cecily Thomas AT Plan of Treatment Date Care Activity Detail Author Start: 2054 RSV Immunization for Adults (1 - 1-dose 75+ series) RSV Immunization for Adults (1 - 1-dose 75+ series) [employer] Start: 03-01-2034 Screening for malign ant neoplasm of colon [facility] Start: 2029 Zoster Vaccines (1 of 2) Zoste r Vaccines (1 of 2) [facility] Start: 09-09-2027 Diabetes Screening Diabetes Screenin g [facility] Start: 09-01-2025 End: 09-01-2025 Patient encounter procedure 09/01/2025 3:20 PM EDT Office Visit [address] [phone] Sonia Perez MD [address] [address] [facility] Start: 08-31-2025 Yearly Adult Physical Yearly Adult P hysical [facility] Start: 03-01-2025 Screening for malign ant neoplasm of colon [facility] Start: 01-10-2025 End: 01-10-2025 Patient encounter procedure 01/10/2025 11:00 AM EDT Office Visit Colorectal Surgery [address] [address] Clare Mobley, DO [address] [place] [address] POST OP Colorectal Surgery Comment on above: POST OP Start: 11-22-2024 Influenza vaccination S [facility] Start: 11-08-2024 End: 11-08-2024 Admission to same day surgery center 11/08/2024 3:30 PM EDT [facility] Colorectal Surgery [address] [address] Clare Mobley, DO [address] [place] [address] POST OP Colorectal Surgery Comment on above: POST OP Start: 10-28-2024 End: 10-28-2024 Follow-up encounter 10/28/2024 11:00 AM EDT [facility] Colorectal Surgery [address] [address] Leticia Ayoub APRN.METALLURGICAL OR MATERIALS TECHNICIAN [address] [place] [address] 2 week follow up Colorectal Surgery Comment on above: 2 week follow up Start: 10-12-2024 [facility] Start: 10-08-2024 End: 10-08-2024 Admission to same day surgery center [facility] Comment on above: EXAM UNDER ANESTHESI A RECTAL Start: 10-08-2024 End: 10-08-2024 Anrct xm surg req anes general spi/edrl dx [facility] Start: 10-08-2024 End: 10-08-2024 Sigmoidoscopy flx dx w/collj spec br/wa if pfrmd [facility] Start: 10-08-2024 Subsequent hospital visit by physician [facility] Comment on above: Rectal prolapse [K62 .3] Start: 10-08-2024 End: 10-08-2024 Us transrectal [facility] Start: 09-22-2024 End: 09-22-2024 Admission to same day surgery center 09/22/2024 11:00 AM EDT PAT Pre Anesthesia [address] [place] [address] 3, Pacc Watson [address] [place] [address] surgery date 10/08 Pre Anesthesia Comment on above: surgery date 10/08 Start: 09-10-2024 End: 09-10-2024 Patient encounter procedure 09/10/2024 8:50 AM EDT Appointment Radiology [address] [place] [place] [address] Request: XR DEFECOGRAPHY Radiology Comment on above: Request: XR DEFECOGR APHY Start: 08-30-2024 End: 08-30-2024 Patient encounter procedure [facility] Start: 08-30-2024 End: 08-30-2025 Basic metabolic 2000 panel - Serum or Plasma Basic metabolic panel Lab Routine Screening for diabetes mellitus Expected: 08/30/2024 (Approximate), Expires: 08/30/2025 [facility] Work Phone: Comment on above: Expected: 08/30/2024 (Approximate), Expires: 08/30/2025 Start: 08-30-2024 End: 08-30-2025 Lipid 1996 panel - Serum or Plasma Lipid Panel Lab Routine Screening, lipid Expected: 08/30/2024 (Approximate), Expires: 08/30/2025 [facility] Service Area Work Phone: Comment on above: Expected: 08/30/2024 (Approximate), Expires: 08/30/2025 Start: 08-28-2024 Yearly Adult Physical Yearly Adult P hysical [facility] Start: 01-20-2024 Diabetes Screening Diabetes Screenin g [facility] Start: 01-20-2024 Lipid panel Lipid Screening [facility] Start: 01-20-2024 Screening for malign ant neoplasm of colon [facility] Start: 11-23-2023 COVID-19 Vaccine ( season) COVID-19 Vaccine ( season) [facility] Start: 11-23-2023 Influenza vaccination Influenza Vacc ine (#1) [facility] Start: 10-30-2023 End: 10-30-2023 Patient encounter procedure 10/30/2023 1:00 PM EDT Office Visit [facility] [address] [place] [phone] Ulises Reynoso, CORRECTION [employer]EN-METALLURGICAL OR MATERIALS TECHNICIAN [address] [facility], [address] [place] [address] [facility] Start: 07-14-2023 Patient discharge [facility] Start: 01-28-2023 Liquid based cervica l cytology screening [facility] Start: 12-26-2022 Egd insert guide wir e dilator passage esophagus EGD GUIDE WIRE INSERTION [facility] Start: 12-26-2022 Egd transoral biopsy single/multiple EGD BIOPSY SINGLE/MULTIPLE [facility] Start: 12-26-2022 Patient discharge [facility] Start: 11-22-2022 COVID-19 Vaccine ( season) COVID-19 Vaccine ( season) [facility] Start: 11-22-2022 Influenza vaccination [facility] Start: 10-29-2022 End: 10-29-2022 Patient encounter procedure 10/29/2022 8:30 AM EDT Office Visit [facility] [address] [place] [phone] Ulises Reynoso, CORRECTION [employer]-METALLURGICAL OR MATERIALS TECHNICIAN [address] [facility], [address] [place] [address] [facility] Start: 10-01-2022 End: 10-01-2022 Patient encounter procedure 10/01/2022 9:30 AM EDT Office Visit [facility] [address] [place] [phone] Ulises Reynoso, CORRECTION W[employer]-METALLURGICAL OR MATERIALS TECHNICIAN [address] [facility], [address] [place], [place] [id number] [facility] Start: 06-25-2022 End: 06-26-2023 CBC panel - Blood by Automated count CBC Lab Routine Epigastric abdominal pain Expected: 06/25/2022 (Approximate), Expires: 06/26/2023 [facility] Service Area Work Phone: Comment on above: Expected: 06/25/2022 (Approximate), Expires: 06/26/2023 Start: 06-25-2022 End: 06-26-2023 Comprehensive metabolic 2000 panel - Serum or Plasma Comprehensive Metabolic Panel Lab Routine Epigastric abdominal pain Expected: 06/25/2022 (Approximate), Expires: 06/26/2023 [facility] Work Phone: Comment on above: Expected: 06/25/2022 (Approximate), Expires: 06/26/2023 Start: 06-25-2022 End: 06-26-2023 Urinalysis complete panel - Urine Urinalysis with Reflex Microscopic Lab Routine Epigastric abdominal pain Expected: 06/25/2022 (Approximate), Expires: 06/26/2023 [facility] Work Phone: Comment on above: Expected: 06/25/2022 (Approximate), Expires: 06/26/2023 Start: 04-20-2021 GAELV, Provider: Elvia Art, Status: Pen, Time: 2:00 PM [facility] Work Phone: Start: 08-04-2020 Screening for malign ant neoplasm of breast Mammogram [facility] Start: 2019 Screening for malign ant neoplasm of breast [facility] Start: 2009 Screening for malign ant neoplasm of cervix [facility] Start: 07-11-2005 DTaP/Tdap/Td Vaccine s (6 - Tdap) DTaP/Tdap/Td Vaccines (6 - Tdap) [facility] Start: 07-11-2005 Urine microalbumin profile DTaP,Tdap,Td Vaccine (6 - Tdap) [facility] Start: 01-20-2000 Screening for malign ant neoplasm of cervix [facility] Start: 1998 Hepatitis B Vaccine (1 of 3 - 19+ 3-dose series) Hepatitis B Vaccine (1 of 3 - 19+ 3-dose series) [facility] Start: 1998 Hepatitis B Vaccines (1 of 3 - 19+ 3-dose series) Hepatitis B Vaccines (1 of 3 - 19+ 3-dose series) [facility] Start: 1997 Anxiety Screening Anxiety Screening [facility] Start: 1997 Depression Screening Depression Scre ening [facility] Start: 1997 Diabetes mellitus screening Diabetes Screening [facility] Start: 1997 Hepatitis C screening Hepatitis C Sc reening [facility] Start: 1997 HIV screening HIV Screening [facility] Start: 1991 Depression Screening Depression Scre ening [facility] Start: 1979 COVID-19 Vaccine (#1) COVID-19 Vacci ne (#1) [facility] Start: 1979 Hepatitis B Vaccines (1 of 3 - 3-dose series) Hepatitis B Vaccines (1 of 3 - 3-dose series) [facility] Start: 1979 HIV screening HIV Screening [facility] Start: 1979 Lipid panel Lipid Panel [facility] Start: 1979 Screening for malign ant neoplasm of colon [facility] Start: 1979 Yearly Adult Physical Yearly Adult P hysical [facility]ULT [place] [facility]ULT [place] [facility] Endoscopy Routine Rectal prolapse Other constipation 08/10/2024 [facility] Work Phone: MG Breast - bilatera l Screening [facility] OUTSIDE PROCEDURE SCAN OUTSIDE P ROCEDURE SCAN Procedures Ordered: 04/12/2024 [facility] Comment on above: Ordered: 04/12/2024 Path report.final Dx Spec [facility] Patient Education Managing Post- Op Pain at Home [facility] Work Phone: Patient referral [facility] Work Phone: Radiography of esophagus [facility] Radionuclide gastric emptying study [facility] Immunizations Immunization Date Immunization Notes Care Provider Fa farzana 02-06-2023 influenza, injectabl e, quadrivalent, preservative free ULISES REYNOSO [facility] 02-06-2023 influenza virus vaccine, unspecified formulation Ashlyn Rm MD Work Phone: [facility] Work Phone: 02-11-2022 influenza, injectabl e, quadrivalent, preservative free No Primary Care Physician [facility] 02-11-2022 influenza, seasonal, injectable [facility] 01-24-2021 influenza, injectabl e, quadrivalent, preservative free No Primary Care Physician [facility] 01-24-2021 influenza, seasonal, injectable [facility] 01-24-2021 influenza, seasonal, injectable, preservative free Elvia Art Work Phone: [facility] Work Phone: 12-29-2019 influenza, injectabl e, quadrivalent, preservative free No Primary Care Physician [facility] 12-29-2019 influenza, seasonal, injectable [facility] 12-17-2018 influenza, injectabl e, quadrivalent, preservative free No Primary Care Physician [facility] 12-17-2018 influenza, seasonal, injectable [facility] 01-21-2018 influenza, injectabl e, quadrivalent, preservative free No Primary Care Physician [facility] 01-21-2018 influenza, seasonal, injectable [facility] 01-21-2018 influenza, seasonal, injectable, preservative free Ashlyn Rm MD Work Phone: [facility] Work Phone: 12-18-2016 influenza, injectabl e, quadrivalent, preservative free No Primary Care Physician [facility] 12-18-2016 influenza, seasonal, injectable [facility] 02-12-2016 influenza, injectabl e, quadrivalent, preservative free No Primary Care Physician [facility] 02-12-2016 influenza, seasonal, injectable [facility] 07-10-2005 hepatitis B vaccine, pediatric or pediatric/adolescent dosage Elvia Art Work Phone: [facility] Work Phone: 07-10-2005 TD(adult) unspecifie d formulation Elvia Art Work Phone: [facility] Work Phone: 06-12-2005 hepatitis B vaccine, pediatric or pediatric/adolescent dosage Elvia Art Work Phone: [facility] Work Phone: 07-05-1991 measles, mumps and rubella virus vaccine Elviaaziza Art Work Phone: [facility] Work Phone: 06-19-1983 diphtheria, tetanus toxoids and acellular pertussis vaccine, unspecified formulation Elviaaziza Art Work Phone: [facility] Work Phone: 06-19-1983 poliovirus vaccine, inactivated Elviaaziza Art Work Phone: [facility] Work Phone: 08-23-1981 diphtheria, tetanus toxoids and acellular pertussis vaccine, unspecified formulation Elviaaziza Sharper Work Phone: [facility] Work Phone: 07-06-1980 measles, mumps and rubella virus vaccine Elviaaziza Art Work Phone: [facility] Work Phone: 1979 diphtheria, tetanus toxoids and pertussis vaccine Elviaaziza Sharper Work Phone: [facility] Work Phone: 1979 poliovirus vaccine, inactivated Elviaaziza Sharper Work Phone: [facility] Work Phone: 1979 diphtheria, tetanus toxoids and pertussis vaccine Elviaaziza Sharper Work Phone: [facility] Work Phone: 1979 poliovirus vaccine, unspecified formulation Elviaaziza Sharper Work Phone: [facility] Work Phone: 1979 diphtheria, tetanus toxoids and pertussis vaccine Elvia Art Work Phone: [facility] Work Phone: 1979 poliovirus vaccine, unspecified formulation Elvia Art Work Phone: [facility] Work Phone: Payers Date Payer Category Payer Self-pay [id number] 2023 Commercial Managed C [facility] [employer] [id number] 2023 Private Health Insurance [id number] 2022 Unknown [id number] 2022 Managed Care (Private) [id number] 2022 Unknown [id number] 2017 Unknown 1979 Unknown [id number]. [id number] 1979 Unknown [id number]. 1244 Unknown [id number] Unknown [facility]WC [facility] [id number] Unknown [id number]. 462 Unknown [id number]. 462 Unknown [id number]. 462 Unknown [id number] 2.840.1.667254.3.579.2. 462 Unknown [id number] 2.840.1.852432.3.579.2. 462 Unknown [id number] 2.840.1.487102.3.579.2. 462 Unknown [id number] 2.840.1.269120.3.579.2. 462 Unknown [id number] [id number]. 462 Unknown [id number] 2.840.1.234449.3.579.2. 462 Unknown [id number] 2.16.840.1.923109.3.579.2. 462 Unknown [id number] 2.840.1.850727.3.579.2. 462 Unknown [id number] 2.840.1.340379.3.579.2. 462 Unknown [id number] 2.840.1.366281.3.579.2. 462 Unknown [id number] 2.840.1.181458.3.579.2. 462 Unknown [id number] 2.840.1.554625.3.579.2. 462 Unknown [id number]. 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 [employer] Start: 03-18-2021 End: 07-02-2023 Assertion Unknown if ever smoked [facility] Work Phone: Start: 1980 Sex Assigned At Female W [facility] Start: 10-30-2019 Occasional [facility] Start: 10-30-2019 None [facility] Start: 10-27-2019 Non-smoker [facility] Start: 06-25-2022 Tobacco smoking status NHIS Never smoked tobacco [facility] Start: 06-25-2022 End: 08-28-2023 Tobacco use and exposure Smokeless tobacco non-user [facility] Work Phone: Start: 1980 Sex Assigned At Not on file U [facility] Work Phone: Start: 06-25-2022 End: 08-10-2024 Gender identity Not on file [facility] Work Phone: Start: 06-15-2022 End: 08-30-2024 Exposure to SARS-CoV-2 (event) Not sure [facility] Start: 08-28-2023 End: 10-12-2024 Tobacco smoking status NHIS Ex-smoker [facility] Start: 03-24-2016 History of tobacco use Current smoker [facility] Work Phone: Start: 03-24-2016 History of tobacco use Cigarette Smoker [facility] Work Phone: History of tobacco use Passive smoker [facility] Work Phone: Start: 08-28-2023 End: 08-30-2024 Alcoholic beverage intake Current drinker of alcohol (finding) [facility] Work Phone: Start: 08-28-2023 Alcohol Comment [facility] Work Phone: Start: 10-22-2021 End: 07-05-2024 Sex Female (finding) [facility] Start: 08-10-2024 Tobacco use and exposure Former smokeless tobacco user [facility] Start: 08-10-2024 End: 10-13-2024 Alcoholic beverage intake Current non-drinker of alcohol (finding) [facility] National Score (1-100), lower number is lower risk 58 [facility] Start: 08-10-2024 Tobacco Comment 2017 Quit Vaping [facility] Start: 08-09-2024 Gender identity Identifies as female gender (finding) [facility] NEGATED: Highlighted rowStart: 05-31-2021 End: 05-31-2021 Employment detail Employment detail [facility] Work Phone: NEGATED: Highlighted row [facility] Medical Equipment Procedure Code Equipment Code Equipment Original Text Equipment Identifier Dates Total cholecystectomy with exploration of common bile duct CLIP,HEMOLOCK MED WECK FDA Start: 07-14-2023 Total cholecystectomy with exploration of common bile duct CLIP,HEMOLOCK MED WEKAEL FDA Start: 07-14-2023 Total cholecystectomy with exploration of common bile duct CLIP,HEMOLOKAEL MED WEKAEL FDA Start: 07-14-2023 Total cholecystectomy with exploration of common bile duct DRESSING,FIBRILLA R 1X2 1960 FDA Start: 07-14-2023 Total cholecystectomy with exploration of common bile duct CLIP,HEMMARQUITA BEACH WEKAEL FDA Start: 07-14-2023 Total cholecystectomy with exploration of common bile duct CLIP,HEMOLOCK MED WECK FDA Start: 07-14-2023 Total cholecystectomy with exploration of common bile duct CLIP,HEMOLOCK MED WECK FDA Start: 07-14-2023 Total cholecystectomy with exploration of common bile duct DRESSING,FIBRILLA R 1X2 1960 FDA Start: 07-14-2023 Total cholecystectomy with exploration of common bile duct CLIP,HEMOLOCK MED WECK FDA Start: 07-14-2023 Total cholecystectomy with exploration of common bile duct CLIP,HEMOLOCK MED WECK FDA Start: 07-14-2023 Total cholecystectomy with exploration of common bile duct CLIP,HEMOLOCK MED WEKAEL FDA Start: 07-14-2023 Total cholecystectomy with exploration of common bile duct DRESSING,NICKOA R 1X2 1 FDA Start: 07-14-2023 Goals Date Patient Goal Desired Activity /State Mental Status Date Assessment Result Facility 10-12-2024 Cognitive function Level Of Cons ciousness Awake;Alert;Appropriate [facility] Work Phone: 07-14-2023 Cognitive function Touch/Shaking [facility] Work Phone: 07-14-2023 Cognitive function Patient Orien tation Person;Place;Time [facility] Work Phone: 12-26-2022 Cognitive function Touch/Shaking [facility] Work Phone: Clinical Notes 03-05-2021 to 10-13-2024 Patient InstructionsLeticia Ayoub APRN.CNP - 10/13/2024 11:30 AM EDTTelephone Encounter - Velma Wei RN - 10/12/2024 10:03 AM MATTTSlava Marin APRN.CNP - 09/22/2024 11:00 AM EDT Note Date & Type Note Facility 10-13-2024 Instructions Leticia Ayoub APRN.CNP - 10/13/2024 12:08 PM EDT - Continue Metronidazole cream and oral Metronidazole as prescribed. - Recommended sitz baths 2-3 times daily with mild soap to reduce inflammation and promote healing. - Apply ice to the affected area to reduce swelling. - Maintain a high-protein diet to support healing. - Monitor for any signs of worsening infection or abscess formation. - Scheduled follow-up video visit in 1-2 weeks virtually with LETICIA AYOUB APRN.CNP to reassess condition. - Avoid prolonged sitting, especially in recliners; advised to elevate legs above heart level when resting. - Monitor for any changes in symptoms or new concerns. - Follow-up appointment scheduled with Dr. Mobley in December for further evaluation. documented in this encounter [facility] 10-13-2024 History of Presen t illness Narrative COLORECTAL SURGERY PELVIC FLOOR POST OP VISIT Laisha Romero is a 44 year old female who returns for a post-operative visit after undergoing exam under anesthesia, flexible sigmoidoscopy, mucopexy , perianal block, on 10/08/24. Patient was seen at her local ED yesterday and was put on oral Flagyl and Cefdinir. Patient reports swelling on the right side of her abdomen, and left side of her bottock. She got a CT scan done, unable to pull the records from this visit. Scan showed inflammation per patient, ED Dr. Wanted to julia the area however patient denied and wanted to try antibiotics first. She feels worse than before. She is tolerating diet with an improving appetite, stable weight, and energy level is worsening. She has no specific complaints, except that she was told that she would be fine by Friday and she was not. She had the concern that she was not doing well and she and feels that she was not responded to in an appropriate time frame. Patient was seen at her local ED yesterday and was put on oral Flagyl and Cefdinir. Patient reports swelling on the right side. She got a CT scan done, unable to pull the records from this visit. Scan showed inflammation per patient, ED Dr. Wanted to julia the area however patient denied and wanted to try antibiotics first. The patient returned to work six days after surgery but felt it was too soon due to her symptoms and was subsequently given additional time off. She reports that sitting, especially in a recliner or with pressure on her right buttock, worsens her swelling and tenderness, so she tries to avoid putting weight on that side. She describes her current pain as a 4 out of 10, characterized as raw and dull, with persistent tenderness and swelling in the right buttock. She continues to experience intermittent spasms and twinges in the area, but notes significant improvement today compared to the previous day. She has been wearing a panty liner to manage drainage. She reports frequent bowel movements since surgery, with incomplete evacuation and a sensation of stool getting stuck in the rectum. She began having bowel movements on Friday, with approximately five soft stools that day, and about four on Friday before contacting the nurse. She observes that her stool may be mixed with blood and mucus, and describes the appearance as weird looking. She reports a burning sensation and concern for possible urinary tract infection after using a sitz bath, which she began on Friday night. She does not take narcotics, preferring to avoid constipation. She recalls not experiencing a similar odor after prior reconstructive surgery (sphincter bulking), and expresses embarrassment about the current odor, but is relieved that it has improved with treatment. She lives in [place], approximately an hour [place] a half away, and traveled alone for this visit. She has not attended pelvic floor physical therapy due to distance and lack of local options. Current bowel related medications: None. Bowel movement frequency: multiple a day, patient reports not having complete bowel movements. She states she can have up to 10 per day however she is not completely evacuating and must return to the toilet multiple times prior to feeling empty. Do you get a good urge to defecate? yes Do you strain during defecation? Yes, mild straining intermittently. No recent fevers, chills, nausea, vomiting. ROS: Gastrointestinal: (+) perianal drainage with malodor, (+) perianal pain, (+) rectal spasms, (+) rectal incomplete evacuation, (+) increased bowel movement frequency, (+) perianal swelling Genitourinary: (+) dysuria Musculoskeletal: (+) right gluteal pain, (+) right gluteal swelling Skin: (+) perianal skin irritation CT from outside hospital pt self reported that there were no fluid collection identified, with marked bilateral inflammation noted, worse on the right. Unable to obtain the record. Current Outpatient Medications Medication Sig Dispense Refill cefdinir (OMNICEF) 300 mg capsule metroNIDAZOLE 0.75 % cream Apply to affected area two times a day. [address] (PROTONIX) 20 mg tablet Take 20 mg by mouth two times a day. LO/OVRAL-28 TABLET Take one(1) tablet daily. 0 No current facility-administered medications for this visit. ALLERGIES Allergen Reactions Latex internal Oxycodone Ht 167.6 cm (5' 6) Wt 67.6 kg (149 lb 0.5 oz) LMP 09/21/2024 (Exact Date) BMI 24.05 kg/m Sensitive Exam: Abdominal examination: soft, non-distended, and non-tender without masses or hernias. lap sites are well, and perianal wound Is without evidence for infection. Wound is healing well. . Assessment Assessment: Laisha Romero is a 44 year old FEMALE who is 5 days status post ndergoing exam under anesthesia, flexible sigmoidoscopy, mucopexy , perianal block. Plan Plan: 1. Infection following procedure (T81.40XA) Abscess of anal and rectal regions (K61.2) Postoperative infection with malodorous drainage and significant inflammation in the perianal region. No discrete abscess identified on CT, but increased inflammation noted bilaterally, worse on the right side. Patient reports severe pain and spasms, with tenderness localized to the right buttock. Examination reveals swelling and a palpable lump on the right buttock, likely due to hematoma or dependent edema from positioning. - Continue Metronidazole cream and oral Metronidazole as prescribed. - Recommended sitz baths 2-3 times daily with mild soap to reduce inflammation and promote healing. - Apply ice to the affected area to reduce swelling. - Maintain a high-protein diet to support healing. - Monitor for any signs of worsening infection or abscess formation. - Scheduled follow-up video visit in 1-2 weeks to reassess condition. 2. Encounter for surgical aftercare following surgery on the digestive system (Z48.815) Patient is 6 days post-op from mucopexy. Experiencing expected postoperative symptoms including drainage, swelling, and discomfort. Pain level currently at 4/10, described as a raw, dull sensation. Patient has been able to have bowel movements, though reports difficulty with complete evacuation. - Continue current postoperative care regimen. - Avoid prolonged sitting, especially in recliners; advised to elevate legs above heart level when resting. - Monitor for any changes in symptoms or new concerns. - Follow-up appointment scheduled with Dr. Mobley in December for further evaluation. LETICIA AYOUB APRN.CNP October 13, 2024 8:32 AM documented in this encounter [facility] 10-13-2024 Note HNO ID: [id number] Author: LETICIA AYOUB APRN.GARY Service: ? Author Type: Nurse Practitioner Type: Progress Notes Filed: 10/13/2024 15:01 Note Text: COLORECTAL SURGERY PELVIC FLOOR POST OP VISIT Laisha Romero is a 44 year old female who returns for a post-operative visit after undergoing exam under anesthesia, flexible sigmoidoscopy, mucopexy , perianal block, on 10/08/24. Patient was seen at her local ED yesterday and was put on oral Flagyl and Cefdinir. Patient reports swelling on the right side of her abdomen, and left side of her bottock. She got a CT scan done, unable to pull the records from this visit. Scan showed inflammation per patient, ED DrTatiana Wanted to julia the area however patient denied and wanted to try antibiotics first. She feels worse than before. She is tolerating diet with an improving appetite, stable weight, and energy level is worsening. She has no specific complaints, except that she was told that she would be fine by Friday and she was not. She had the concern that she was not doing well and she and feels that she was not responded to in an appropriate time frame. Patient was seen at her local ED yesterday and was put on oral Flagyl and Cefdinir. Patient reports swelling on the right side. She got a CT scan done, unable to pull the records from this visit. Scan showed inflammation per patient, ED DrTatiana Wanted to julia the area however patient denied and wanted to try antibiotics first. The patient returned to work six days after surgery but felt it was too soon due to her symptoms and was subsequently given additional time off. She reports that sitting, especially in a recliner or with pressure on her right buttock, worsens her swelling and tenderness, so she tries to avoid putting weight on that side. She describes her current pain as a 4 out of 10, characterized as raw and dull, with persistent tenderness and swelling in the right buttock. She continues to experience intermittent spasms and twinges in the area, but notes significant improvement today compared to the previous day. She has been wearing a panty liner to manage drainage. She reports frequent bowel movements since surgery, with incomplete evacuation and a sensation of stool getting stuck in the rectum. She began having bowel movements on Friday, with approximately five soft stools that day, and about four on Friday before contacting the nurse. She observes that her stool may be mixed with blood and mucus, and describes the appearance as weird looking. She reports a burning sensation and concern for possible urinary tract infection after using a sitz bath, which she began on Friday night. She does not take narcotics, preferring to avoid constipation. She recalls not experiencing a similar odor after prior reconstructive surgery (sphincter bulking), and expresses embarrassment about the current odor, but is relieved that it has improved with treatment. She lives in [place], approximately an hour and a half away, and traveled alone for this visit. She has not attended pelvic floor physical therapy due to distance and lack of local options. Current bowel related medications: None. Bowel movement frequency: multiple a day, patient reports not having complete bowel movements. She states she can have up to 10 per day however she is not completely evacuating and must return to the toilet multiple times prior to feeling empty. Do you get a good urge to defecate? yes Do you strain during defecation? Yes, mild straining intermittently. No recent fevers, chills, nausea, vomiting. ROS: Gastrointestinal: (+) perianal drainage with malodor, (+) perianal pain, (+) rectal spasms, (+) rectal incomplete evacuation, (+) increased bowel movement frequency, (+) perianal swelling Genitourinary: (+) dysuria Musculoskeletal: (+) right gluteal pain, (+) right gluteal swelling Skin: (+) perianal skin irritation CT from outside hospital pt self reported that there were no fluid collection identified, with marked bilateral inflammation noted, worse on the right. Unable to obtain the record. Current Outpatient Medications Medication Sig Dispense Refill cefdinir (OMNICEF) 300 mg capsule metroNIDAZOLE 0.75 % cream Apply to affected area two times a day. [address] (PROTONIX) 20 mg tablet Take 20 mg by mouth two times a day. LO/OVRAL-28 TABLET Take one(1) tablet daily. 0 No current facility-administered medications for this visit. ALLERGIES Allergen Reactions Latex internal Oxycodone Ht 167.6 cm (5' 6) Wt 67.6 kg (149 lb 0.5 oz) LMP 09/21/2024 (Exact Date) BMI 24.05 kg/m? Sensitive Exam: Abdominal examination: soft, non-distended, and non-tender without masses or hernias. lap sites are well, and perianal wound Is without evidence for infection. Wound is healing well. . Assessment Assessment: Laisha Romero is a 44 year old FEMALE who is 5 days sta (more content not included)... [facility] 10[facility]12[facility] Hospital Discharg e instructions Additional Instructions Blood work white count normal at 9. Your CT pelvis no collection seen. You have tenderness in swelling right perianal area. You are being treated for proctitis. Take antibiotic as prescribed. Follow-up with your surgeon for reevaluation. [facility] Work Phone: 10-12-2024 Radiology Diagnostic study note [facility] Imaging Services [address] [place] [address] Pelvis WITH IV Contrast MR#: [id number] Acct: [id number] Name: LAISHA ROMERO Rep #: [id number] : 1980 F 44 From: Sylvia Vance MD PCP: Dr. Sonia Perez MD Status: REG ER Study:Pelvis WITH IV Contrast Date of Exam: 10/12/24 Exam# [id number] Ordering Dr: Milton Vance DO EXAM: CT Pelvis With Intravenous Contrast CLINICAL INDICATION: PERIRECTAL PAIN TECHNIQUE: Axial computed tomography images of the pelvis with intravenous contrast. This CT exam was performed using one or more of the following dose reduction techniques: automated exposure control, adjustment of the mA and/or kV according to patient size, and/or use of iterative reconstruction technique. COMPARISON: No relevant prior studies available. FINDINGS: BOWEL: Fecal retention in the colon consistent with constipation. Colonic diverticulosis without acute diverticulitis. No obstruction. APPENDIX: No findings to suggest acute appendicitis. INTRAPERITONEAL SPACE: Unremarkable. No free air. No significant fluid collection. BLADDER: Unremarkable. No mass. REPRODUCTIVE: Unremarkable as visualized. BONES/JOINTS: No acute fracture. No dislocation. SOFT TISSUES: Nonspecific fat stranding in the gluteal region, bilaterally may represent inflammation. However, no abscess or organized fluid collection. VASCULATURE: Unremarkable. No lower abdominal aortic aneurysm. LYMPH NODES: Unremarkable. No enlarged lymph nodes. CT/Pelvis WITH IV Contrast IMPRESSION: 1. Fecal retention in the colon consistent with constipation. 2. Colonic diverticulosis without acute diverticulitis. Reading Location: [facility] CC: Dr. Sonia Perez MD; Dr. Milton Le, DO ~ Transfer Specialist: Signed [facility] 10-12-2024 Telephone encounter Note See response in MyChart communication that patient sent. Velma Wei RN [facility] 10-12-2024 Miscellaneous Notes See response in MyChart communication that patient sent. Velma Wei RN Laisha Ervinmarnie [phone], experiencing rectal pain, burning with urination along with foul odor. documented in this encounter [facility] 10-12-2024 Telephone encounter Note Laisha Ervinmarnie [phone], experiencing rectal pain, burning with urination along with foul odor. [facility] Work Phone: 10-11-2024 Telephone encounter Note SPECIALTY CARE COORDINATION FOLLOW-UP NOTE Provider Action/FYI Returned call to patient Patient identified by name and date of . YES Spoke to patient Summary: Having foul smelling odor from her bottom. States she can clean and wash several times and immediately after she still feels like she has not washed in a while. She is s/p EUA, flex sig and mucopexy on 10/08. Does feel like it is swelling/heavy and sore. She is very concerned that the odor is a sign that something is wrong and is very concerned with going back to work tomorrow with the odor. She was offered an appointment with DESPATCHING AND RECEIVING CLERK today to assess but she is unable to make it to [place]. She is very tearful and not sure how to proceed. She has noted some brownish/red tingned drainage but no fevers. CC recommended that she send us a photo of the area she feels is swollen and we can pass information on to Dr. Mobley. CC also recommended patient try sitz baths to help with hygiene and comfort, will send her photo of sitz bath in a MyChart message as she was unaware of what that is. CC also let patient know that one of our DESPATCHING AND RECEIVING CLERK's can see her this week if she wants to come in. CC let patient know if she has significant drainage, fevers, chills then she should present to the ED for evaluation. Concerns: Foul smell from bottom Group Practice Pediatrician plan for next outreach: Recommendations: Patient send photo in MyChart of area in question. Use sitz bath TID and after bowel movement Present to ED if she has increased drainage, fevers, chill. Will follow up after discussing with Dr. Mobley Signature Velma Wei RN October 11, 2024 [facility] 10-11-2024 Miscellaneous Notes SPECIALTY CARE COORDINATION FOLLOW-UP NOTE Provider Action/FYI Returned call to patient Patient identified by name and date of . YES Spoke to patient Summary: Having foul smelling odor from her bottom. States she can clean and wash several times and immediately after she still feels like she has not washed in a while. She is s/p EUA, flex sig and mucopexy on 10/08. Does feel like it is swelling/heavy and sore. She is very concerned that the odor is a sign that something is wrong and is very concerned with going back to work tomorrow with the odor. She was offered an appointment with DESPATCHING AND RECEIVING CLERK today to assess but she is unable to make it to [place]. She is very tearful and not sure how to proceed. She has noted some brownish/red tingned drainage but no fevers. CC recommended that she send us a photo of the area she feels is swollen and we can pass information on to Dr. Mobley. CC also recommended patient try sitz baths to help with hygiene and comfort, will send her photo of sitz bath in a MyChart message as she was unaware of what that is. CC also let patient know that one of our DESPATCHING AND RECEIVING CLERK's can see her this week if she wants to come in. CC let patient know if she has significant drainage, fevers, chills then she should present to the ED for evaluation. Concerns: Foul smell from bottom Group Practice Pediatrician plan for next outreach: Recommendations: Patient send photo in MyChart of area in question. Use sitz bath TID and after bowel movement Present to ED if she has increased drainage, fevers, chill. Will follow up after discussing with Dr. Leandra Wei RN October 11, 2024 Laisha Roemro [phone], have questions concerning foul odor from bottom. documented in this encounter [facility] 10-11-2024 Telephone encounter Note Laisha Romero [phone], have questions concerning foul odor from bottom. [facility] Work Phone: 09-22-2024 History and physical note Images from the original note were not included. [facility] HISTORY AND PHYSICAL EXAMINATION SERVICE DATE: 09/22/2024 SERVICE TIME: 11:14 AM PRIMARY CARE PHYSICIAN: Sonia Garza APRN, [employer] Assessment Patient has the following medical conditions which may affect neptali-operative course: Post-operative nausea and vomiting Assessment: Reports from prior procedures. Requesting antiemetics for control of N/V. Gastroesophageal reflux disease without esophagitis Assessment: Controlled on Protonix. Advised avoidance of triggers. Following with PCP. History of hydronephrosis Assessment: Reports she was diagnosed with acute renal failure with no cause prior to . During , developed hydronephrosis. Patient had multiple surgeries r/t stent malfunctions. Denies any new or worsening symptoms. Followed up with urology in the past. Denies any oswald=hematuria, dysuria, frequency, urgency, or flank pain. ANESTHESIA FINDINGS: Intubation History: No history of difficult intubation. No abnormal airway history Significant Anesthesia Considerations: potential postop nausea/vomiting Airway History: No history of difficult airway No abnormal airway history [place] Activity Status Index: METS: Walk indoors, such as around the house (1.75 METs) Do light work around the house, such as dusting or washing dishes (2.70 METs) Take care of self; that is eating, dressing, bathing, using the toilet (2.75 METs) Walk a block or two on level ground (2.75 METs) Do moderate work around the house, such as vacuuming, sweeping floors, or carrying in groceries (3.50 METs) Climb a flight of stairs or walk up a hill (5.50 METs) DASI Score: 18.95 Patient denies any chest pain or undue shortness of breath with the above physical activity. Clinical Frailty Scale: 2. Well STOP-Bang Score: Denies snoring loudly Denies feeling tired, fatigued, or sleepy during the daytime Has not been observed to stop breathing or choking/gasping during sleep Denies having high blood pressure BMI less than or equal to 35 kg/m^2 Patient 50 years old or younger Does not have a large neck Non-male patient STOP-Bang Score: 0 I - PHYSICAL EVALUATION AIRWAY Patient intubated: No. Tracheostomy tube not present Mallampati: II. TM distance: >3 FB. Neck ROM: full ROM without neurological symptoms. Mouth opening: adequate. Short neck: no. Thick neck: no DENTAL Dental findings: teeth intact. II - ANESTHESIA PLAN Anesthetic plan additional comments: *PACC/TCI - anesthesia choice. Beta Kya Monitoring Plan Post Procedure Analgesic Plan Prepared for Surgery: optimally prepared for surgery. CONSULTS: Patient does not require consults for optimization at this time Planned Anesthetic: anesthesia choice The Following Tests/Procedures Have Been Initiated: Orders Placed This Encounter pantoprazole DR (PROTONIX) 20 mg tablet Sig: Take 20 mg by mouth two times a day. REASON FOR VISIT: Laisha Romero is a 44 year old female who is scheduled for Procedure(s): EXAM UNDER ANESTHESIA RECTAL (N/A) SIGMOIDOSCOPY FLEXIBLE (N/A) ULTRASOUND TRANSRECTAL (N/A) at the request of Dr. Clare Mobley for consultation. My final recommendation will be communicated back to the requesting physician by way of shared medical record or letter. Subjective The patient has the following: COVID-19 Immunization Status Current Care Gaps Covid-19 Vaccine ( season) Never done No completion, postpone, frequency change, or communication history exists for this topic. CHIEF COMPLAINT: pre op HPI: Patient is a 44 year old female scheduled for pre anesthesia consultation for procedure on 10/08/2024 at [facility]. REVIEW OF SYSTEMS: General: No weight loss, malaise or fevers. Neurological: Negative for: delirium, dementia, headaches, impaired sensorium, peripheral neuropathy, seizures, TIA and strokes. Respiratory: Negative for: asthma, bronchitis, COPD, current cough, bronchodilator used daily for the last 3 months, dyspnea, home oxygen, orthopnea, pneumonia within 6 weeks, tobacco use, URI < 2 weeks and obstructive sleep apnea. Cardiovascular: Negative for: abdominal aortic aneurysm, AICD/PPM, angina, anticoagulation therapy, arrhythmia, atrial fibrillation, CAD, chest pain, CHF, congenital heart defect, DVT/PE, hyperlipidemia, hypertension, recent AL, murmur/valvular heart disease, PTCA, PVD, open heart surgery and valve surgery. GI: Positive for: GERD Negative for: abdominal pain, GI bleed <30 days, hepatitis, liver disease, nausea, vomiting and ETOH >2 drinks/day. : denies CKD Negative for: on dialysis, dysuria, flank pain, frequent urination, hematuria, renal failure and urinary tract infection. Endocrine: Negative for: diabetes mellitus, hyperthyroidism and hypothyroidism. Hematology: Negative for: anemia, bruises/bleeds easily, factor V Leiden, hemophilia, thrombocytopenia, von Willebrand disease, transfusion of at least 4 units within 72 hours prior to surgery and chronic anti-coagulation/platelet meds. Oncology: Negative for: CA metastasis, chemo within 30 days, disseminated cancer and radiotherapy within 90 days. Psych: No history of psychiatric symptoms or problems. Musculoskeletal: Negative for joint pain or swelling, back pain or muscle pain. Skin: Negative for lesions, rash and itching. Implanted Devices: No implanted devices. PAST MEDICAL HISTORY Diagnosis Date PMH - PAST MEDICAL HISTORY OF 06/24 kidney problems-up to 2 stents on right kidney PAST SURGICAL HISTORY Procedure Laterality Date DELIVERY ONLY , low cervical PAST SURGICAL HISTORY OF 5 surgeries on right kidney in 2 years FAMILY HISTORY Problem Relation Age of Onset Diabetes Maternal Grandmother Prostate Cancer Maternal Grandfather Anesthesia Problems No Family History Social History Tobacco Use Smoking status: Former Current packs/day: 1.00 Average packs/day: 1 pack/day for 10.0 years (10.0 ttl pk-yrs) Types: Cigarettes Smokeless tobacco: Former Tobacco comments: 2016 Quit Vaping Vaping Use Vaping status: Former Substances: Nicotine Substance Use Topics Alcohol use: No Drug use: Never Prior to Admission medications as of 09/22/24 1100 Medication Sig Last Dose Taking pantoprazole DR (PROTONIX) 20 mg tablet Take 20 mg by mouth two times a day. Yes LO/OVRAL-28 TABLET Take one(1) tablet daily. Yes No medication comments found. ALLERGIES Allergen Reactions Latex internal Oxycodone Objective PHYSICAL EXAM: General: alert and oriented and healthy appearance. Pertinent negatives noted - not distressed. Skin: normal color, no rash or lesions. HEENT: EOM intact, pupils equal round and pupils reactive to light. Pertinent negatives noted - no carotid bruit. Cardiovascular: regular rate and rhythm, normal S1 and S2, no rub, murmurs, or gallop. Respiratory: normal breath sounds, no wheezes or crackles. No chest wall deformity or tenderness. Abdomen: bowel sounds present and soft. Pertinent negatives noted - not tender. Extremities: no deformity, no edema or tenderness, no joint swelling or clubbing. Neurological: normal cognition and motor skills. Gait normal. No weakness or sensory deficit. PAIN ASSESSMENT: VITALS: BP 125/79 Pulse 79 Temp (Src) 97.3 (Temporal) Resp 16 Ht 5' 6 (1.68m) Wt 147 lb 11.3 oz (67.0kg) SpO2 100% LMP 09/21/2024 BMI 23.85 kg/(m^2). Diagnostic tests reviewed for today's visit: Lab Value Units Date High Low HB No results within date range. HCT No results within date range. WBC No results within date range. PLT No results within date range. NA No results within date range. K No results within date range. GLUC No results within date range. BUN No results within date range. CREAT No results within date range. PTSEC No results within date range. INR No results within date range. APTT No results within date range. ALT No results within date range. AST No results within date range. TBILI No results within date range. TSH No results within date range. Lab Value Units Date High Low HCGQT No results within date range. UHCG No results within date range. HCG, BODY* No results within date range. Lab Value Units Date High Low ABORHD No results within date range. ABSCREEN No results within date range. No results found for: HBA1C No results found for this or any previous visit (from the past 8760 hours). No results found for this or any previous visit (from the past 05019 hours). Instructions Given to Patient: Instructions located in the after visit summary. Patient given verbal and written preop instructions and voices comprehension and compliance. SIGNATURE: Slava Marin APRN.CNP PATIENT NAME: Laisha Romero DATE: September 22, 2024 TIME: 11:00 AM PAGER/CONTACT #: [facility] 09-22-2024 History and physical note Images from the original note were not included. [facility] HISTORY AND PHYSICAL EXAMINATION SERVICE DATE: 09/22/2024 SERVICE TIME: 11:14 AM PRIMARY CARE PHYSICIAN: Sonia Garza APRN, KRISTOFER Assessment Patient has the following medical conditions which may affect neptali-operative course: Post-operative nausea and vomiting Assessment: Reports from prior procedures. Requesting antiemetics for control of N/V. Gastroesophageal reflux disease without esophagitis Assessment: Controlled on Protonix. Advised avoidance of triggers. Following with PCP. History of hydronephrosis Assessment: Reports she was diagnosed with acute renal failure with no cause prior to . During , developed hydronephrosis. Patient had multiple surgeries r/t stent malfunctions. Denies any new or worsening symptoms. Followed up with urology in the past. Denies any oswald=hematuria, dysuria, frequency, urgency, or flank pain. ANESTHESIA FINDINGS: Intubation History: No history of difficult intubation. No abnormal airway history Significant Anesthesia Considerations: potential postop nausea/vomiting Airway History: No history of difficult airway No abnormal airway history Marrero Activity Status Index: METS: Walk indoors, such as around the house (1.75 METs) Do light work around the house, such as dusting or washing dishes (2.70 METs) Take care of self; that is eating, dressing, bathing, using the toilet (2.75 METs) Walk a block or two on level ground (2.75 METs) Do moderate work around the house, such as vacuuming, sweeping floors, or carrying in groceries (3.50 METs) Climb a flight of stairs or walk up a hill (5.50 METs) DASI Score: 18.95 Patient denies any chest pain or undue shortness of breath with the above physical activity. Clinical Frailty Scale: 2. Well STOP-Bang Score: Denies snoring loudly Denies feeling tired, fatigued, or sleepy during the daytime Has not been observed to stop breathing or choking/gasping during sleep Denies having high blood pressure BMI less than or equal to 35 kg/m^2 Patient 50 years old or younger Does not have a large neck Non-male patient STOP-Bang Score: 0 I - PHYSICAL EVALUATION AIRWAY Patient intubated: No. Tracheostomy tube not present Mallampati: II. TM distance: >3 FB. Neck ROM: full ROM without neurological symptoms. Mouth opening: adequate. Short neck: no. Thick neck: no DENTAL Dental findings: teeth intact. II - ANESTHESIA PLAN Anesthetic plan additional comments: *PACC/TCI - anesthesia choice. Beta Kya Monitoring Plan Post Procedure Analgesic Plan Prepared for Surgery: optimally prepared for surgery. CONSULTS: Patient does not require consults for optimization at this time Planned Anesthetic: anesthesia choice The Following Tests/Procedures Have Been Initiated: Orders Placed This Encounter pantoprazole DR (PROTONIX) 20 mg tablet Sig: Take 20 mg by mouth two times a day. REASON FOR VISIT: Laisha Romero is a 44 year old female who is scheduled for Procedure(s): EXAM UNDER ANESTHESIA RECTAL (N/A) SIGMOIDOSCOPY FLEXIBLE (N/A) ULTRASOUND TRANSRECTAL (N/A) at the request of Dr. Clare Mobley for consultation. My final recommendation will be communicated back to the requesting physician by way of shared medical record or letter. Subjective The patient has the following: COVID-19 Immunization Status Current Care Gaps Covid-19 Vaccine ( season) Never done No completion, postpone, frequency change, or communication history exists for this topic. CHIEF COMPLAINT: pre op HPI: Patient is a 44 year old female scheduled for pre anesthesia consultation for procedure on 10/08/2024 at [facility]. REVIEW OF SYSTEMS: General: No weight loss, malaise or fevers. Neurological: Negative for: delirium, dementia, headaches, impaired sensorium, peripheral neuropathy, seizures, TIA and strokes. Respiratory: Negative for: asthma, bronchitis, COPD, current cough, bronchodilator used daily for the last 3 months, dyspnea, home oxygen, orthopnea, pneumonia within 6 weeks, tobacco use, URI < 2 weeks and obstructive sleep apnea. Cardiovascular: Negative for: abdominal aortic aneurysm, AICD/PPM, angina, anticoagulation therapy, arrhythmia, atrial fibrillation, CAD, chest pain, CHF, congenital heart defect, DVT/PE, hyperlipidemia, hypertension, recent AL, murmur/valvular heart disease, PTCA, PVD, open heart surgery and valve surgery. GI: Positive for: GERD Negative for: abdominal pain, GI bleed <30 days, hepatitis, liver disease, nausea, vomiting and ETOH >2 drinks/day. : denies CKD Negative for: on dialysis, dysuria, flank pain, frequent urination, hematuria, renal failure and urinary tract infection. Endocrine: Negative for: diabetes mellitus, hyperthyroidism and hypothyroidism. Hematology: Negative for: anemia, bruises/bleeds easily, factor V Leiden, hemophilia, thrombocytopenia, von Willebrand disease, transfusion of at least 4 units within 72 hours prior to surgery and chronic anti-coagulation/platelet meds. Oncology: Negative for: CA metastasis, chemo within 30 days, disseminated cancer and radiotherapy within 90 days. Psych: No history of psychiatric symptoms or problems. Musculoskeletal: Negative for joint pain or swelling, back pain or muscle pain. Skin: Negative for lesions, rash and itching. Implanted Devices: No implanted devices. PAST MEDICAL HISTORY Diagnosis Date PMH - PAST MEDICAL HISTORY OF 06/24 kidney problems-up to 2 stents on right kidney PAST SURGICAL HISTORY Procedure Laterality Date DELIVERY ONLY , low cervical PAST SURGICAL HISTORY OF 5 surgeries on right kidney in 2 years FAMILY HISTORY Problem Relation Age of Onset Diabetes Maternal Grandmother Prostate Cancer Maternal Grandfather Anesthesia Problems No Family History Social History Tobacco Use Smoking status: Former Current packs/day: 1.00 Average packs/day: 1 pack/day for 10.0 years (10.0 ttl pk-yrs) Types: Cigarettes Smokeless tobacco: Former Tobacco comments: 2017 Quit Vaping Vaping Use Vaping status: Former Substances: Nicotine Substance Use Topics Alcohol use: No Drug use: Never Prior to Admission medications as of 09/22/24 1100 Medication Sig Last Dose Taking pantoprazole DR (PROTONIX) 20 mg tablet Take 20 mg by mouth two times a day. Yes LO/OVRAL-28 TABLET Take one(1) tablet daily. Yes No medication comments found. ALLERGIES Allergen Reactions Latex internal Oxycodone Objective PHYSICAL EXAM: General: alert and oriented and healthy appearance. Pertinent negatives noted - not distressed. Skin: normal color, no rash or lesions. HEENT: EOM intact, pupils equal round and pupils reactive to light. Pertinent negatives noted - no carotid bruit. Cardiovascular: regular rate and rhythm, normal S1 and S2, no rub, murmurs, or gallop. Respiratory: normal breath sounds, no wheezes or crackles. No chest wall deformity or tenderness. Abdomen: bowel sounds present and soft. Pertinent negatives noted - not tender. Extremities: no deformity, no edema or tenderness, no joint swelling or clubbing. Neurological: normal cognition and motor skills. Gait normal. No weakness or sensory deficit. PAIN ASSESSMENT: VITALS: BP 125/79 Pulse 79 Temp (Src) 97.3 (Temporal) Resp 16 Ht 5' 6 (1.68m) Wt 147 lb 11.3 oz (67.0kg) SpO2 100% LMP 09/21/2024 BMI 23.85 kg/(m^2). Diagnostic tests reviewed for today's visit: Lab Value Units Date High Low HB No results within date range. HCT No results within date range. WBC No results within date range. PLT No results within date range. NA No results within date range. K No results within date range. GLUC No results within date range. BUN No results within date range. CREAT No results within date range. PTSEC No results within date range. INR No results within date range. APTT No results within date range. ALT No results within date range. AST No results within date range. TBILI No results within date range. TSH No results within date range. Lab Value Units Date High Low HCGQT No results within date range. UHCG No results within date range. HCG, BODY* No results within date range. Lab Value Units Date High Low ABORHD No results within date range. ABSCREEN No results within date range. No results found for: HBA1C No results found for this or any previous visit (from the past 8760 hours). No results found for this or any previous visit (from the past 38781 hours). Instructions Given to Patient: Instructions located in the after visit summary. Patient given verbal and written preop instructions and voices comprehension and compliance. SIGNATURE: Slava Marin APRN.CNP PATIENT NAME: Laisha Romero DATE: September 22, 2024 TIME: 11:00 AM PAGER/CONTACT #: documented in this encounter [facility] 09-22-2024 Instructions Slava Marin APRN.CNP - 09/22/2024 10:55 AM EDT Images from the original note were not included. [facility] Pre[facility]est[facility] PATIENT PREOPERATIVE INSTRUCTIONS Clare Mobley DO has scheduled you for your procedure at this surgery center: [facility]: [phone] --[address] [place] [address]. Please read below carefully for your personalized instructions. Arrival Time for Surgery: - The Surgery Center or hospital where you are having surgery will call the afternoon before surgery (or Friday for Friday surgery) with a scheduled arrival time. - If you have not heard by 4 pm, please contact the surgery center above. Dietary Restrictions: - No solid food after midnight. - You may have 12 ounces of clear liquids (water, clear juices such as apple juice or gatorade, carbonated beverages, clear tea, black coffee, jello) until 2 hours before scheduled arrival at facility. - Do not drink any alcohol after midnight the night before your surgery. - no milk/creamer or other additives like honey - no pulp juices Medications: Unless instructed differently below, stay on all of your medications until your surgery. If you start any new medications after today's visit, please contact your surgeon. Pre-Surgery Med Instructions Medication Instructions pantoprazole DR (PROTONIX) 20 mg tablet If you normally take this medication in the morning, take the morning of surgery. LO/OVRAL-28 TABLET If you normally take this medication in the morning, take the morning of surgery. If you are currently using a [id number]-[id number] injectable or oral medication for diabetes or weight loss such as Dulaglutide (Trulicity), Exenatide (Byetta, Bydureon), Liraglutide (Victoza, Saxenda), Semaglutide (Ozempic, Wegovy, Rybelsus), or Tirzepatide (Mounjaro), the medicine should be stopped at least 7 days before surgery. These medicines can cause food to remain in your stomach for a very long time and increase the risks from surgery and anesthesia. Not stopping the medication for a long enough time may result in your surgery being rescheduled. If you start any new medications after today's visit, please contact the surgeon's office. Blood Thinning Medications: - Stop NSAIDS (Ibuprofen, Advil, Aleve, Motrin, Celebrex, Mobic, etc.) 7 days before surgery, as directed by your surgeon. - Stop Aspirin 7 days before surgery, as directed by your surgeon. - Stop herbal supplements 7 days before surgery. - You may take Tylenol (Acetaminophen) or any of your pain medications that do not contain aspirin or NSAIDS as needed. Important Reminders: - If you use CPAP/BIPAP, bring the machine with you to the surgery center. - If you are prescribed inhalers for breathing, continue using them. -Please be sure to brush your teeth and you can use mouth wash or rinse your mouth if dry. - Candy, mints, and tobacco products are NOT permitted the morning of surgery. - Hearing aids, dentures and glasses may be worn the morning of surgery. - If you have dentures or partials, please have a case to place them in or leave at home day of surgery. - NO jewelry, body piercings, makeup, hairpins or contacts are to be worn the day of surgery. If you develop symptoms such as a fever, cold, or flu, or have other changes to your health within TWO DAYS of scheduled surgery or the morning of surgery, please contact the surgery center above. Personal Belongings: -Please have photo ID and insurance cards. -If you do not have a copy of advance directives on file with us, please bring a copy with you on the day of surgery. - Leave ALL valuables and money at home or with family members. Please be aware that emergency situations arise, which may delay or change your surgical time. If this happens, we will notify you as soon as possible and regret any inconvenience. If you already have an Advance Directive, please fax a copy to [phone] or email to for it to be added to your chart. If you do not have an Advance Directive, you can find the appropriate form and more information at [email or web address]. We recommend that you complete the Advance Directive form found on the website and bring it with you the day of your surgery. It can be witnessed and scanned into your chart that day. Slava Marin APRN.CNP documented in this encounter [facility] 09-10-2024 History of Presen t illness Narrative Radiology Service Progress Note PATIENT NAME: Laisha Romero DATE OF SERVICE: September 10, 2024 TIME: 9:02 AM PATIENT IDENTITY VERIFICATION COMPLETED USING TWO (2) IDENTIFIERS: Name and Date of confirmed by patient verbally. FALL SCREENING: Has the patient had 2 falls in the last year or 1 fall with injury or currently using an Ambulatory Assistive Device (Walker, Cane, Wheelchair, Crutches, etc.)? No PATIENT GENDER DATA: Assigned female at . status: : No status: NO. PATIENT RELEVANT IMPLANT DATA REVIEWED: Not Applicable PATIENT PRESENTS WITH AN IMPLANTABLE OR ATTACHED AUTO DEALERSHIP PORTER: No RADIOLOGY DEPARTMENT: General X-ray: Exam(s) Completed: GI/ Procedure(s): Defecating Proctogram PERIPHERAL IV DATA: Not applicable SIGNED BY: RT Shagufta(R) September 10, 2024 9:02 AM documented in this encounter [facility] 09-10-2024 Note HNO ID: [id number] Author: ELVIA LOZA RT(R) Service: Radiology Author Type: Technologist Type: Progress Notes Filed: 09/10/2024 09:02 Note Text: Radiology Service Progress Note PATIENT NAME: Laisha Romero DATE OF SERVICE: September 10, 2024 TIME: 9:02 AM PATIENT IDENTITY VERIFICATION COMPLETED USING TWO (2) IDENTIFIERS: Name and Date of confirmed by patient verbally. FALL SCREENING: Has the patient had 2 falls in the last year or 1 fall with injury or currently using an Ambulatory Assistive Device (Walker, Cane, Wheelchair, Crutches, etc.)? No PATIENT GENDER DATA: Assigned female at . status: : No status: NO. PATIENT RELEVANT IMPLANT DATA REVIEWED: Not Applicable PATIENT PRESENTS WITH AN IMPLANTABLE OR ATTACHED AUTO DEALERSHIP PORTER: No RADIOLOGY DEPARTMENT: General X-ray: Exam(s) Completed: GI/ Procedure(s): Defecating Proctogram PERIPHERAL IV DATA: Not applicable SIGNED BY: RT Shagufta(R) September 10, 2024 9:02 AM [facility] 08-30-2024 History of Presen t illness Narrative Subjective: Laisha Romero is a 44 y.o. female who presents to clinic today for annual exam. Employment: - What do you do for work or school? [employer] - How is school/work going? Going well Social History: - Who lives with you at home? Medical History: (Please complete in history tab) - Any changes to your personal or family history? no - Any personal/family history of the following: Hypertension, heart attack, high cholesterol, stroke Cancer of the colon, breast, prostate or skin Addiction, alcoholism, mental health concerns Diabetes, thyroid or autoimmune disease (Provider to ask): Pillars of health: - Any issues with sleep? Hot flashes and night sweats - How do you feel about your eating habits? Pretty good - What do you do to be physically active? walking And how often? A few times a week - How is your stress level? moderate Manageable or is it a problem? 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 was normal 10/2023 - Any history of abnormal mammograms? Yes - had US due to cyst - Have you ever had a colonoscopy? 03/01/2024, ischemic colitis Sexual history (provider to ask): - Have you been sexually active within the past year? Yes male - Do you have a personal history of sexually transmitted infections (STI)?:no - Have you ever been tested for HIV? yes - negative - Do you want comprehensive STI testing today? No Domestic Violence Screening (Provider to ask): Because violence is so common in many people's lives and because there is help available for those being abused, I now ask every patient about domestic violence: - Within the past year have you been hit, slapped, kicked or otherwise physically hurt by someone? no - Are you in a relationship with a person who threatens or physically hurts you? no - Has anyone forced you to have sexual activities that made you feel uncomfortable? no Perimenopause: - having some hot flashes and having symptoms - OBGYN put her on OCPS, has been on for 6 weeks - some things are feeling better - feeling more emotional She is having a lot of hip and SI pain. Previously she was seeing Dr. Smart from [facility]. Review of Systems Assessment/Plan: Laisha Romero is a 44 y.o. female with a history of anxiety, low back pain who presents to clinic today to address the following issues: 1. Annual physical exam 2. Chronic bilateral low back pain with right-sided sciatica Referral to Pain Medicine 3. Chronic right SI joint pain Referral to Pain Medicine 4. Screening, lipid Lipid Panel Lipid Panel 5. Screening for diabetes mellitus Basic metabolic panel Basic metabolic panel Annual Physical: Overall annual physical within normal limits. Screening labs ordered. Mammogram/pap smear managed by OB. Up to date on colonoscopy. Will refer to pain management for chronic SI pain. No problem-specific Assessment & Plan notes found for this encounter. Patient Instructions Get your TDAp shot given, tetanus shot Routine adult health maintenance It sounds as if things are going well. Keep up the good work! Exercise: - Try for at least 150 minutes of cardiovascular (strenuous) exercise per week. Safety: - Wear your seat belt at all times when in a car and NO TEXTING/CELL PHONES while driving. - Wear a helmet while biking, using a motorcycle, skiing/snow boarding, skate/long boarding, or any activities faster than running. - Avoid smoking. - If you have a gun it needs to be locked up and stored unloaded away from children. Nutrition: - Drink plenty of water each day - No more than 2 alcoholic drinks per day for men. No more than 1 alcoholic drink per day for woman. - Read labels for calories - Use website [employer] for free calorie counting tool when possible. Stress: - Make time for activities that allow you to decrease stress and recognize any red flags of stress for you to know when to activate your stress release mechanisms. Sleep: - Try to get 7-9 hours of sleep each night. Preventative Care: - Follow-up yearly for your annual exams - For most people, the following are indicated: - reproductive age females vitamin daily - Colonoscopies for colon cancer screening starting at age 45, then every 3-10 years - Mammograms for breast cancer screening every 1-2 years starting at age 40 - Annual flu vaccination - Bone density screening at age 65 - Pneumonia vaccination at age 50 (some people need this before age 65, so ask your doctor!) - Shingles vaccination (shingrix) at age 50 Follow up: 1 year or sooner as needed Return precautions discussed. An After Visit Summary was given to the patient. All questions were answered and patient in agreement with plan. Objective: BP 142/86 (BP Location: Right arm, Patient Position: Sitting, BP Cuff Size: Adult) Pulse 86 Ht 1.702 m (5' 7) Wt 68 kg (150 lb) SpO2 98% BMI 23.49 kg/m Physical Exam Vitals and nursing note reviewed. Constitutional: General: She is not in acute distress. HENT: Head: Normocephalic and atraumatic. Right Ear: Tympanic membrane, ear canal and external ear normal. There is no impacted cerumen. Left Ear: Tympanic membrane, ear canal and external ear normal. There is no impacted cerumen. Mouth/Throat: Mouth: Mucous membranes are moist. Pharynx: No oropharyngeal exudate or posterior oropharyngeal erythema. Eyes: General: No scleral icterus. Right eye: No discharge. Left eye: No discharge. Extraocular Movements: Extraocular movements intact. Conjunctiva/sclera: Conjunctivae normal. Pupils: Pupils are equal, round, and reactive to light. Cardiovascular: Rate and Rhythm: Normal rate and regular rhythm. Pulmonary: Effort: Pulmonary effort is normal. No respiratory distress. Breath sounds: Normal breath sounds. Abdominal: General: Abdomen is flat. There is no distension. Tenderness: There is abdominal tenderness (mild tenderness). Musculoskeletal: Cervical back: Normal range of motion. No tenderness. Right lower leg: No edema. Left lower leg: No edema. Lymphadenopathy: Cervical: No cervical adenopathy. Skin: General: Skin is warm and dry. Neurological: General: No focal deficit present. Mental Status: She is alert and oriented to person, place, and time. Deep Tendon Reflexes: Reflexes normal. Psychiatric: Mood and Affect: Mood normal. Behavior: Behavior normal. Thought Content: Thought content normal. Judgment: Judgment normal. LABS: No results found for: CHOL, LDL, HDL, HGBA1C The ASCVD Risk score (Thompson DK, et al., 2019) failed to calculate for the following reasons: Cannot find a previous HDL lab Cannot find a previous total cholesterol lab IMAGES: No new images I spent 29 minutes in total time for this visit including all related clinical activities before, during, and after the visit excluding other billable activities/procedure time. Sonia Perez MD documented in this encounter [facility] Work Phone: 08-30-2024 Instructions Sonia Perez MD - 08/30/2024 2:40 PM EDT Get your TDAp shot given, tetanus shot Routine adult health maintenance It sounds as if things are going well. Keep up the good work! Exercise: - Try for at least 150 minutes of cardiovascular (strenuous) exercise per week. Safety: - Wear your seat belt at all times when in a car and NO TEXTING/CELL PHONES while driving. - Wear a helmet while biking, using a motorcycle, skiing/snow boarding, skate/long boarding, or any activities faster than running. - Avoid smoking. - If you have a gun it needs to be locked up and stored unloaded away from children. Nutrition: - Drink plenty of water each day - No more than 2 alcoholic drinks per day for men. No more than 1 alcoholic drink per day for woman. - Read labels for calories - Use website [employer] for free calorie counting tool when possible. Stress: - Make time for activities that allow you to decrease stress and recognize any red flags of stress for you to know when to activate your stress release mechanisms. Sleep: - Try to get 7-9 hours of sleep each night. Preventative Care: - Follow-up yearly for your annual exams - For most people, the following are indicated: - reproductive age females vitamin daily - Colonoscopies for colon cancer screening starting at age 45, then every 3-10 years - Mammograms for breast cancer screening every 1-2 years starting at age 40 - Annual flu vaccination - Bone density screening at age 65 - Pneumonia vaccination at age 50 (some people need this before age 65, so ask your doctor!) - Shingles vaccination (shingrix) at age 50 documented in this encounter [facility] Work Phone: 06-30-2024 Evaluation note Diagnosis Onset Date Resolution Hot flashes acute June 30 2:06pm [facility] Work Phone: 1(411) 446-403012-20-2024 History of Present illness Narrative* Ashlyn Rm MD - 03/12/2024 2:40 PM EST Subjective Laisha ROMERO is a 44 y.o. female who presents for TONGUE (LESION ON BACK OF TONGUE BY TONSILS). Pt of Dr Perez here c/o felt a lesion on the back of her tongue, feels irritated. Noticed it a couple of weeks ago - initially she thought maybe she scraped/scratched it with food and thought it would get better but it is still pretty bothersome and she feels like there is another spot behind it as well. It does bother her when she swallows now. Objective Visit Vitals BP 130/84 Pulse 86 Physical Exam Vitals reviewed. Constitutional: General: She is not in acute distress. HENT: Mouth/Throat: Comments: I am not able to actually see the lesion she is describing as it is further down her throat/tongue than I can visualize in the office. Cardiovascular: Rate and Rhythm: Normal rate and regular rhythm. Heart sounds: No murmur heard. Pulmonary: Effort: Pulmonary effort is normal. No respiratory distress. Breath sounds: Normal breath sounds. Skin: General: Skin is warm and dry. Neurological: General: No focal deficit present. Mental Status: She is alert. Mental status is at baseline. Assessment/Plan Problem List Items Addressed This Visit None Visit Diagnoses Lesion of tongue - Primary Relevant Orders Referral to ENT [facility]lyn [facility]m [facility] Phone: 1(693) 555-155012-20-2024 Instructions* Patient Instructions* Ashlyn Rm MD - 03/12/2024 2:40 PM EST Will refer to ENT where they should be able to visualize the area she is is describing better and determine if further testing/evaluation is needed. [facility]: 1(449) 928-882612-18-2024 Evaluation note* Diagnosis Onset Date Resolution Status Admit Date Ischemic colitis acute March 10, 2024 1:55pm Rectal prolapse acute March 10, 2024 1:55pm Rectocele acute March 10, 2024 1:55pm Hot flashes acute June 30 2:06pm [facility] Work Phone: 1([phone]) 108-538912-09-2024 [facility] Medical Records Department [address] [place] [address] History Physical Exam 03/01/24 0643 MR#: [id number] Acct: [id number] Name: LAISHA ROMERO ANGEL LUIS Rep #: [id number] : 1980 44 From: Octavio Friend PCP: Dr. Sonia Perez MD Status:[facility] Location: [place] [address] History and Physical Date of Admission: 03/01/24 Chief Complaint: constipation and diarrhea Details: LAISHA ROMERO, is a 43 F who presents to the office today for FU with increasing symptoms of GERD and new complaints of diarrhea mixed with constipation. She reports episodes of heartburn ramping up and needing to take more Tums. She denies difficulty chewing and swallowing, nausea, vomiting, and melena. She reports rarely hematochezia, but does have internal hemorrhoids. She reports tenesmus and sensation of stool in her rectal vault which has been impeding sexual intercourse for several weeks. She reports taking fiber caps and probiotics. She also reports traumatic vaginal for her first child; she stated the doctor gave her a vicious episiotomy and cut through her vagina to her rectum, and then only repairing surface tissue of vaginal wall. She states that she is missing part of her anal sphincter because of this. She denies having been offered pelvic floor therapy at that time. ROS Const Constitutional: Positive for fatigue; No fever(s) or weight change Eyes Eyes: No change in vision ENT ENT: No abnormal hearing or difficulty swallowing Resp Respiratory: No cough Cardio Cardiology: No chest pain at rest, chest pain with exertion or leg pain with exertion Gastro GI: Positive for bloating, constipation, diarrhea and excessive flatus; No abdominal pain, belching, change in bowel habits, change in stool character, coffee ground emesis, cramping, heartburn, difficulty swallowing, feeling full early, incontinent of stools, Vomiting blood/hematemesis, Blood in stool, loose stools, Black,tarry stools, nausea/dyspepsia, pain with swallowing, vomiting or other Genitourinary-Female: Positive for urinary frequency and urinary urgency Musc Musculoskeletal: Positive for back pain and sciatica; No joint pain or leg pain with exertion Skin Skin: No yellowing of the eye or itchy eyes Neuro Neurology: No abnormal hearing Psych Psychiatric: No anxiety and No depression Endo Endocrine: Positive for fatigue; No cold intolerance, heat intolerance or weight change Aller/Imm Allergy/Immunologic: No food intolerance or itchy eyes Rebel/Lymp Hematologic/Lymphatic: No easy bleeding or easy bruising Exam Const General: cooperative, healthy appearing, comfortable and no acute distress HENMT Head: normal to inspection Ears: hearing grossly normal bilaterally Nose: external nose normal Face and sinus: normal facial exam and face symmetric Eyes General: appearance normal, both eyes and all related structures Sclera: sclerae normal Neck Neck: normal visual inspection and full ROM Chest Chest palpation inspection: normal inspection of the chest Resp Effort Inspection: normal respiratory effort, able to speak in complete sentences and symmetric chest movement GI Inspection: normal to inspection Skin General: no rashes or lesions noted Neuro General: patient alert, patient awake and patient oriented x3 Cognition: normal cognition Speech: speech normal Gait: normal gait Extrem General: full ROM Psych Appearance: well kempt Mental Status: mental status grossly normal Mood: congruent mood Affect: normal affect Speech and Movement: speech and movement normal Attitude: cooperative Thought Process: normal Assessment and Plan Assessment and Plan (1) GERD (gastroesophageal reflux disease): Status: Chronic Qualifiers: Esophagitis bleeding: without hemorrhage Esophagitis presence: with esophagitis Qualified Code(s): K21.00 - Gastro-esophageal reflux disease with esophagitis, without bleeding (2) Constipation: Status: Chronic Qualifiers: Constipation type: slow transit constipation Qualified Code(s): K59.01 - Slow transit constipation Plan: LAISHA NICK, is a 43 F who presents to the office today for FU with increasing symptoms of GERD and new complaints of diarrhea mixed with constipation. Differential diagnoses include: idiopathic constipation, pelvic floor dysfunction, IBS-M, UTI. Discussed plan with patient. * blood for food allergy testing, inflammatory markers * stool for inflammatory markers and enzymes * urine to check for UTI * KUB now to look for impaction * increase pantoprazole to 40mg PO BID [id number], then return to 20mg PO BID * sitz marker study to begin Friday, 10.24, KUBs ordered days 3 and 5 * call with results Orders: Orders Allergen, Food Profile 14 Today K21.00 - Gastro-esophageal reflux disease with esophagitis, without bleeding, (more content not included)...[facility]06-06-2024 History of Present illness Narrative* Sonia Perez MD - 08/28/2023 2:20 PM EDT Subjective: Laisha ROMERO is a 43 y.o. female who presents to clinic today for annual exam. 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 Going okay Social History: - Who lives with you at home? and daughter Medical History: (Please complete in history tab) - Any changes to your personal or family history? updated - Any personal/family history of the following: Hypertension, heart attack, high cholesterol, stroke Cancer of the colon, breast, prostate or skin Addiction, alcoholism, mental health concerns Diabetes, thyroid or autoimmune disease (Provider to ask): Gynecologic History: (Please complete obstetric history in the history tab) - Do you have any menstrual concerns? No light spotting - Do you have any breast concerns? No - Date of last pap smear: January, done in [place] - Results of last pap smear, if known: normal - Personal history of prior abnormal pap smear?: very long ago - Date and results of last mammogram? Had a breast cyst - Any history of abnormal mammograms? No - Have you ever had a colonoscopy? no Sexual history (provider to ask): - Have you been sexually active within the past year? Yes heterosexual - What are the genders of your sexual partner(s)? male - Are you or your spouse/partner wanting to become or have children in the next year? No - Do you have a personal history of sexually transmitted infections (STI)?: Has never been diagnosed with an STI - Have you ever been tested for HIV? yes - negative - Do you want comprehensive STI testing today? No Domestic Violence Screening (Provider to ask): Because violence is so common in many people's lives and because there is help available for those being abused, I now ask every patient about domestic violence: - Within the past year have you been hit, slapped, kicked or otherwise physically hurt by someone? no - Are you in a relationship with a person who threatens or physically hurts you? no - Has anyone forced you to have sexual activities that made you feel uncomfortable? no Review of Systems Assessment/Plan: Laisha ROMERO is a 43 y.o. female with a history of GERD, Low back pain who presents toclinic today to address the following issues: 1. Annual physical exam 2. Gastroesophageal reflux disease without esophagitis pantoprazole (ProtoNix) 40 mg EC tablet Annual pHysical w/o abnormalities. Up to date on healthcare maintenance and records were requested to show results. Patient Instructions Routine adult health maintenance It sounds as if things are going well. Keep up the good work! Exercise: - Try for at least 150 minutes of cardiovascular (strenuous) exercise per week. Safety: - Wear your seat belt at all times when in a car and NO TEXTING/CELL PHONES while driving. - Wear a helmet while biking, using a motorcycle, skiing/snow boarding, skate/long boarding, or anyactivities faster than running. - Avoid smoking. - If you have a gun it needs to be locked up and stored unloaded away from children. Nutrition: - Drink plenty of water each day - No more than 2 alcoholic drinks per day for men. No more than 1 alcoholic drink per day for woman. - Read labels for calories - Use website [employer] for free calorie counting tool when possible. Stress: - Make time for activities that allow you to decrease stress and recognize any red flags of stress for you to know when to activate your stress release mechanisms. Sleep: - Try to get 7-9 hours of sleep each night. Preventative Care: - Follow-up yearly for your annual exams - For most people, the following are indicated: - reproductive age females vitamin daily - Colonoscopies for colon cancer screening starting at age 45, then every 3-10 years - Mammograms for breast cancer screening every 1-2 years starting at age 40 - Annual flu vaccination - Bone density screening at age 65 - Pneumonia vaccination at age 65 (some people need this before age 65, so ask your doctor!) - Shingles vaccination (shingrix) at age 50 Follow up: 1 year or sooner as needed Return precautions discussed. An After Visit Summary was given to the patient. All questions were answered and patient in agreement with plan. Objective: BP 114/82 Pulse 73 Ht 1.699 m (5' 6.9) Wt 67.1 kg (147 lb 14.4 oz) SpO2 98% BMI 23.23 kg/m Physical Exam Vitals and nursing note reviewed. Constitutional: General: She is not in acute distress. Appearance: She is normal weight. HENT: Head: Normocephalic and atraumatic. Right Ear: Tympanic membrane, ear canal and external ear normal. There is no impacted cerumen. Left Ear: Tympanic membrane, ear canal and external ear normal. There is no impacted cerumen. Mouth/Throat: Mouth: Mucous membranes are moist. Pharynx: No oropharyngeal exudate or posterior oropharyngeal erythema. Eyes: General: No scleral icterus. Right eye: No discharge. Left eye: No discharge. Extraocular Movements: Extraocular movements intact. Conjunctiva/sclera: Conjunctivae normal. Pupils: Pupils are equal, round, and reactive to light. Cardiovascular: Rate and Rhythm: Normal rate and regular rhythm. Pulmonary: Effort: Pulmonary effort is normal. No respiratory distress. Breath sounds: Normal breath sounds. Abdominal: General: Abdomen is flat. There is no distension. Musculoskeletal: Cervical back: Normal range of motion. No tenderness. Right lower leg: No edema. Left lower leg: No edema. Lymphadenopathy: Cervical: No cervical adenopathy. Skin: General: Skin is warm and dry. Neurological: General: No focal deficit present. Mental Status: She is alert and oriented to person, place, and time. Deep Tendon Reflexes: Reflexes normal. Psychiatric: Mood and Affect: Mood normal. Behavior: Behavior normal. Thought Content: Thought content normal. Judgment: Judgment normal. LABS: No results found for: CHOL, LDL, HDL, HGBA1C The ASCVD Risk score (Janis DK, et al., 2019) failed to calculate for the following reasons: Cannot find a previous HDL lab Cannot find a previous total cholesterol lab IMAGES: No new images I spent 18 minutes in total time for this visit including all related clinical activities before, during, and after the visit excluding other billable activities/procedure time. Sonia Perez MD documented in this [facility] Work Phone: 1(490) 958-465206-06-2024 Instructions* Patient Instructions* Sonia Perez MD - 08/28/2023 2:20 PM EDT Routine adult health maintenance It sounds as if things are going well. Keep up the good work! Exercise: - Try for at least 150 minutes of cardiovascular (strenuous) exercise per week. Safety: - Wear your seat belt at all times when in a car and NO TEXTING/CELL PHONES while driving. - Wear a helmet while biking, using a motorcycle, skiing/snow boarding, skate/long boarding, or anyactivities faster than running. - Avoid smoking. - If you have a gun it needs to be locked up and stored unloaded away from children. Nutrition: - Drink plenty of water each day - No more than 2 alcoholic drinks per day for men. No more than 1 alcoholic drink per day for woman. - Read labels for calories - Use website [employer] for free calorie counting tool when possible. Stress: - Make time for activities that allow you to decrease stress and recognize any red flags of stress for you to know when to activate your stress release mechanisms. Sleep: - Try to get 7-9 hours of sleep each night. Preventative Care: - Follow-up yearly for your annual exams - For most people, the following are indicated: - reproductive age females vitamin daily - Colonoscopies for colon cancer screening starting at age 45, then every 3-10 years - Mammograms for breast cancer screening every 1-2 years starting at age 40 - Annual flu vaccination - Bone density screening at age 65 - Pneumonia vaccination at age 65 (some people need this before age 65, so ask your doctor!) - Shingles vaccination (shingrix) at age 50 documented in this [facility] Work Phone: 1(700) 487-971804-22-2024 Discharge summary Author Pepe Titus [facility] July 14, 2023 10:36am Note Date/Time July 14, 2023 7:2 6am [facility] Medical Records Department [address] [place] [address] Instructions for Home/Discharge Instructions 07/14/23 0726 MR#: [id number] Acct: [id number] Name: LAISHA ROMERO ANGEL LUIS Rep #:[id number] : 1980 43 From: Pepe Titus MD PCP: SONIA PEREZ Status:REG SDC Discharge Instructions Procedure General Surgery Diet Discharge Diet: Light diet - advance as tolerated (if you have questions about your diet instructions, please talk to you doctor.) Activity Discharge Activity: May Not Drive (for 3-5 days or while taking narcotic pain medicine.) May shower in (days): 1 Lifting Restrictions: 10 pounds Dressing / Incision Call your doctor if your incision/area has: Continuous Slow Oozing, Sudden Increased Bleeding, Increased Pain/ Swelling, Increased Redness and Foul Smelling Discharge Call your doctor if you observe: Fever of 101 or Higher Suture Line Care: Avoid Pulling/Pushing and Avoid Pinching/Bending Additional Dressing/Incision Instructions:: Change or remove dressing in 4 days. Leave steri-strips in place for 1 week. Follow Up Care Please Follow Up With: Pepe Titus MD When: Call [phone] to make an appointment to be seen in about 10 days. Test Results: Test results from this visit will be discussed in further detail at your follow- up appointment, if applicable. Discharge Plan Admission Attending Provider: Pepe Titus Primary Care Provider: SONIA PEREZ Discharge Orders/Prescriptions Prescriptions: No Action multivitamin Tablet 1 tab PO DAILY Linzess 72 mcg capsule 72 mcg PO QAM Qty: 30 3RF Probiotic Acidophilus 250 million cell capsule 500 mmu cells PO DAILY pantoprazole 20 mg tablet,delayed release (DR/EC) 20 mg PO Q12H Qty: 60 3RF psyllium husk [Daily Fiber] 0.4 gram capsule 0.8 g PO DAILY Referrals / Follow Up: Reed Herrera MD [Non-Staff] - Disposition Disposition (needs filled in before D/C Order can be placed): Home, Self Care 07/14/23 1036<Electronically signed by Pepe Titus MD>Pepe Titus MD CC: SONIA PEREZ ~ Signed [facility] Work Phone: 1(303) 571-404004-22-2024 History and physical note Author Pepe Titus [facility] July 14, 2023 7:25am Note Date/Time July 14, 2023 6:2 2am [facility] Medical Records Department [address] [place] [address] History & Physical Exam 07/14/23 0621 MR#: [id number] Acct: [id number] Name: HÉCTORDerekLAISHA Rep #:[id number] : 1980 43 From: Pepe Titus MD PCP: SONIA PEREZ Status:[facility] Location: [place] [address] History and Physical Date of Admission: 07/14/23 Visit Reasons: RUQ PAIN/GALLBLADDER Chief Complaint: ruq pain/ gallbladder Ota Required: No Is patient in pain?: No Allergies latex Allergy (Severe, Verified 05/30/23 14:11) Othernitrofurantoin [From Macrobid] Allergy (Intermediate, Verified 05/30/23 14:11) Nauseaesomeprazole [From Nexium] Adverse Reaction (Intermediate, Verified 05/30/23 14:11) Other Medications multivitamin 1 tab PO DAILY 10/24/20 [History Confirmed 05/30/23] Lactobacillus acidophilus 250 million cell capsule (Probiotic Acidophilus) 500 mmu cells PO DAILY 12/23/22 [History Confirmed 05/30/23] fiber 2 tab PO DAILY 12/23/22 [History Confirmed 05/30/23] pantoprazole 20 mg tablet,delayed release 20 mg PO Q12H #60 tabs 12/26/22 [Rx Confirmed 05/30/23] linaclotide 72 mcg capsule (Linzess) 72 mcg PO QAM #30 caps 01/20/23 [Rx Confirmed 05/30/23] PFSH Medical History Alcohol use Back pain Epigastric pain Former smoker Gastric reflux GERD (gastroesophageal reflux disease) Heartburn History of diverticulitis History of pain when walking History of renal disease Loose, teeth Shortness of breath on exertion vericose vein surgery Wears glasses Surgical History 4th degree tear in delivery delivered H/O dilation and curettage H/O spinal fusion History of back surgery History of esophagogastroduodenoscopy (EGD) History of hysteroscopy Hx of rectal sphincterotomy Hx of vein stripping sphincterplasty Family History Mother Diabetes Cancer renal cell carsinoma Social History Smoking Status: Former smoker alcohol intake: current details: social substance use type: does not use caffeine: Yes frequency: 1-2 times per week seatbelt use: always do you feel safe at home: Yes additional social history: - [employer] at [employer] HPI HPI: 43-year-old female who is referred by Dr. Octavio Rodríguez for surgical consultation regarding abnormal gallbladder function and a written compromise surgical consult and recommendations will return to him. Dr. Rodríguez has been evaluating her for esophageal dysphagia.. Barium swallow September 25, 2022 suggest small hiatal hernia with a small weblike narrowing at the EG junction. An upperendoscopy that Dr. Rodríguez performed on December 26, 2022 showed a tortuous mid esophagus and what was felt to be abnormal lower esophageal motility. A small hiatal hernia was identified. She does have reflux disease. She was H. pylori negative. Dr. Rodríguez is suspecting esophageal motility disorder. He may consider esophageal manometry in the future pending her progress. She also has concerns about constipation. She was newly prescribed Linzess. A gastric emptying study of September 27, 2022 was within normal limits. A abdominal ultrasound right upper quadrant test obtained May 06, 2023 suggested a normally distended gallbladder with a normal wall. No pericholecystic fluid. There were multiple gallstones identified however. Common bile duct enlarged at8 mm. I HIDA scan was obtained on May 23, 2023. The small intestine was seen at 30 minutes. Ejection fraction was noted to be less than 5%. This examination was felt to be abnormal. As of September 05, 2022 total bilirubin was 0.5 with an AST of 13 and ALT of 21 and alkaline phosphatase of 62 with a total protein of 8.1 and albumin of 4.1 and a globulin of 4. Her white blood cell count was 6.6 with a hemoglobin 13.5 and hematocrit of 42.9 and platelet count of 313,000. Patient actually for a while has been having episodes of epigastric right upper quadrant pain with radiation to her back. 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 She had had weight gain after back surgery that hadmultiple complications. She then has had weight loss. She states she possibly had 1 episode of jaundice when the weather was nice result she looks somewhat yellow. She had a previous anterior approach for her back surgery. He has had no upper abdominal procedures. The patient notes that over the past couple days she has had severe epigastric pain. No jaundice. No dark-colored urine. This moment she is relatively comfortable. She does note that she has persistent aching in the epigastric area however. She otherwise states that her health has been stable. ROS General General: Yes weight change and fatigue; No appetite, colon cancer, breast cancer or weakness HEENT HEENT: No difficulty swallowing, eye injury, eye surgery, swollen glands or hoarseness Endo Endocrine: No thyroid disease, diabetes mellitus, thyroid cancer, Hair loss, heat intolerance or cold intolerance Skin Skin: No rash or changing moles [facility] Musculoskeletal: Yes back problems; No arthritis, rheumatoid arthritis, gout or joint pain Cardio Cardiovascular: No murmur, pacemaker, heart disease, atrial fibrillation, high blood pressure, heart attack, heart stent, palpitations, shortness of breat withexertion or chest pain Psych Psychiatric: No depression, anxiety or hearing voices Resp Respiratory: No shortness of breath, No sleep apnea, No cough, No COPD, No asthma, No emphysema and No wheezing Gastro Gastrointestinal: Yes abdominal pain, Yes nausea or vomiting, No diarrhea, Yes constipation, No blood in stool, Yes acid reflux, No hemorrhoids, No ulcers, Yesgallbladder problem and No black,tarry stools Rebel Hematologic: No blood thinners, No blood disorders, No bleeding, No anemia and No blood clots Neuro Neurologic: No weakness Exam Const General: cooperative, healthy appearing, comfortable and no acute distress Nutritional Appearance: average body habitus [facility] Head: normal to inspection Eyes General: appearance normal, both eyes and all related structures Neck Neck: normal visual inspection Resp Effort & Inspection: normal respiratory effort Auscultation: clear to auscultation bilaterally Cardio Rate: regular rate Rhythm: regular rhythm GI Inspection: normal to inspection Palpation: soft and no hepatosplenomegaly Other: Slightly tender to deep palpation right upper quadrant. No guarding or rebound. No mass. [facility] Cervical Spine: normal cervical lordosis Skin General: no rashes or lesions noted Neuro General: patient alert, patient awake and patient oriented x3 Extrem General: normal to inspection and no calf tenderness Psych Appearance: grossly normal Assessment and Plan Assessment and Plan (1) GERD (gastroesophageal reflux disease): Status: Chronic Qualifiers: Esophagitis bleeding: without hemorrhage Esophagitis presence: with esophagitis Qualified Code(s): K21.00 - Gastro-esophageal reflux disease with esophagitis, without bleeding (2) Cholelithiasis with chronic cholecystitis: Status: Chronic Qualifiers: Biliary obstruction: without biliary obstruction Cholelithiasis location: gallbladder Qualified Code(s): K80.10 - Calculus of gallbladder with chronic cholecystitis without obstruction Plan: 43-year-old female with findings very much consistent with chronic cholecystitischolelithiasis. It is of note that her common bile duct is dilated to 8 mm. Preoperatively I will want to obtain a CMP amylase and lipase in addition to routine lab work. I do propose for her laparoscopic cholecystectomy with cholangiograms. If the anatomy is feasible and if she has only a solitary smallcommon bile duct stone if suggested to her that I would then pursue a laparoscopic common bile duct exploration. If a large stone or multiple stones are identified then I would defer to Dr. Rodríguez for an ERCP. Of course of the common bile duct is clear of stones then she will not require any of this advanced work. 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 She is aware that she will need to take at least some time off and I suggested minimum of 2 weeks. Perhaps light duty subsequent to that. She has had an opportunity to ask and have questions answered. She is aware of the technique, benefit, risk, alternatives. We will schedule and try to expedite her care. I appreciate the opportunity of assisting with the surgical care. Copy: Dr. Octavio Titus M.D., F.A.C.S. She was reviewed today. She notes the recent episodes of pain. We rediscussed the plans for cholangiography and potential laparoscopic common bile duct expiration if indicated. She is very much aware that she could require a postoperative ERCP I would request Dr. Octavio Rodríguez if available. She has hadan opportunity to ask questions answered. We will proceed as noted. The remainder of her history and physical is constant. Pepe Titus M.D., F.A.C.S. 07/14/23 0725 <Electronically signed by Pepe Titus MD> Cosigner Signature (if applicable): CC: Dr. Pepe Titus MD; SONIA PEREZ~ Signed [facility] Work Phone: 1(251) 312-914304-22-2024 Procedure [facility] 01-28-2023 NotePap Smear Specimen AdequacyNovember 2022 4:48pmComment. Satisfactory for evaluation. Endocervical and/or squamous metaplasticcells (endocervical component)are present.[facility] INTERFACED A#[id number] Children'S Medical CenterComment on above:Satisfactory for evaluation. Endocervical and/or squamous metaplasticcells (endocervical component)are present.01-28-2023 NotePap Smear Specimen AdequacyNovember 2022 4:48pmComment.Satisfactory for evaluation. Endocervical and/or squamous metaplasticcells (endocervical component)are present.[facility] A#[id number] Children'S Medical Center Comment on above:Satisfactory for evaluation. Endocervical and/or squamous metaplasticcells (endocervical component)are present.12-26-2022 Procedure note [facility]10-05-2023 Procedure [facility] 10-29-2022 History of Present illness Narrative* Ulises Reynoso, [employer]-METALLURGICAL OR MATERIALS TECHNICIAN - 10/29/2022 8:30 AM EDT Subjective Patient ID: Laisha Middleton is a 42 y.o. female who presents for Annual Exam. Well Adult Physical Patient here for a comprehensive physical exam.The patient reports no new problems, would like dermatology referral due to abnormal skin discoloration to face/nose Following with GI for chronic Abd pain, scheduled for EGD on 12/26/2022, has adjusted diet to exclude foods that cause abd bruce Do you take any herbs or supplements that were not prescribed by a doctor? yes Are you taking calcium supplements? no Are you taking aspirin daily? no History: LMP: 10/10/2022 Menopause at NA years Last pap date: 12/2021 Abnormal pap? no : 3 Para: 2 Denies vision changes/wears glasses to drive Hearing issiue Review of Systems Constitutional: Negative for activity change, fatigue and fever. HENT: Negative. Eyes: Negative for visual disturbance. Respiratory: Negative for chest tightness and shortness of breath. Cardiovascular: Negative for chest pain, palpitations and leg swelling. Gastrointestinal: Positive for abdominal pain (chronic). Negative for constipation, diarrhea, nausea and vomiting. Genitourinary: Negative for decreased urine volume and difficulty urinating. Musculoskeletal: Positive for back pain. Lumbar spinal fusion/chronic back pain Skin: Negative. Neurological: Negative for dizziness, light-headedness and headaches. Objective BP 118/74 (Patient Position: Sitting) Pulse 76 Ht 1.676 m (5' 6) Wt 76.4 kg (168 lb 6.4 oz) BMI 27.18 kg/m Physical Exam Vitals reviewed. Constitutional: General: She is not in acute distress. Appearance: Normal appearance. She is normal weight. Eyes: Pupils: Pupils are equal, round, and reactive to light. Cardiovascular: Rate and Rhythm: Normal rate and regular rhythm. Pulses: Normal pulses. Pulmonary: Effort: Pulmonary effort is normal. Breath sounds: Normal breath sounds. Abdominal: General: Bowel sounds are normal. Palpations: Abdomen is soft. Musculoskeletal: General: Normal range of motion. Skin: General: Skin is warm and dry. Neurological: Mental Status: She is alert and oriented to person, place, and time. Psychiatric: Mood and Affect: Mood normal. Assessment/Plan Diagnoses and all orders for this visit: Skin abnormality - Referral to Dermatology; Future Epigastric abdominal pain -Follows with GI, EGD scheduled in December. Wellness examination - Labs from [facility] reviewed -Health insurance wellness form signed Other orders - Follow Up In Primary Care - Health Maintenance; Future documented in this [facility] Work Phone: 1(235) 279-598907-11-2023 History of Present illness Narrative* ROSS De León - 10/01/2022 9:30 AM EDT Subjective Patient ID: Laisha Middleton is a 42 y.o. female who presents for GERD (3 month). Continues to have abdominal pain, testing has been negative, is not on any medication. Follow up isin December with GI They did do some autoimmune testing, however it was negative Continues to have generalized abdominal pain GI has not identified any cause at this time Gastric study was normal Esophagram a little abnormal states she is on a digestive enzyme, probiotic and fiber Reports constipation and diarrhea, some improvement from starting on fiber Review of Systems Constitutional: Negative for appetite change, fatigue and fever. HENT: Negative. Respiratory: Negative for chest tightness and shortness of breath. Cardiovascular: Negative for chest pain, palpitations and leg swelling. Gastrointestinal: Positive for abdominal pain, constipation and diarrhea. Negative for nausea and vomiting. Genitourinary: Negative for decreased urine volume and difficulty urinating. Musculoskeletal: Negative for arthralgias and myalgias. Skin: Negative. Neurological: Negative for dizziness, light-headedness and headaches. Objective BP 122/70 (Patient Position: Sitting) Pulse 77 Ht 1.676 m (5' 6) Wt 78 kg (172 lb) BMI 27.76 kg/m Physical Exam Constitutional: General: She is not in acute distress. Appearance: Normal appearance. She is normal weight. Cardiovascular: Rate and Rhythm: Normal rate and regular rhythm. Pulses: Normal pulses. Pulmonary: Effort: Pulmonary effort is normal. Breath sounds: Normal breath sounds. Abdominal: General: Bowel sounds are normal. Palpations: Abdomen is soft. There is no mass. Tenderness: There is no abdominal tenderness. Skin: General: Skin is warm and dry. Neurological: Mental Status: She is alert and oriented to person, place, and time. Assessment/Plan Diagnoses and all orders for this visit: Epigastric abdominal pain -Chronic, no identifiable cause at this time, following with GI Other orders - Follow Up In Primary Care documented in this [facility] Work Phone: [phone]) 623-747004-04-2023 History of Present illness Narrative* ROSS De León - 06/25/2022 9:00 AM EDT Subjective Patient ID: Laisha Middleton is a 42 y.o. female who presents for GI referral. Has had issues with GERD, would like a GI referral Had scope in 2020 EGD, found hiatal hernia reyna gastritis, was started on PPI, took 2 ones, doesn't remember the name of the drug Sates she had side effects. States she is now having pain with eating, belching, tasting foods for longer after eating. States she is not taking anything OTC, she states she stopped taking probiotic. States the packaging changes she thinks it was changed and she stopped taking Would like referred to Dr Anne Cates Review of Systems Constitutional: Negative for activity change, appetite change, chills and fever. HENT: Negative for trouble swallowing. Eyes: Negative. Respiratory: Negative for cough and wheezing. Cardiovascular: Negative for chest pain, palpitations and leg swelling. Gastrointestinal: Positive for abdominal pain (epigastric pain with eating), constipation (intermitent), diarrhea (random diarrhea) and nausea. Negative for blood in stool and vomiting. Genitourinary: Negative for difficulty urinating and pelvic pain. Musculoskeletal: Negative for arthralgias and myalgias. Neurological: Negative for dizziness, numbness and headaches. Objective BP 114/80 (Patient Position: Sitting) Pulse 75 Ht 1.676 m (5' 6) Wt 78.9 kg (173 lb 14.4 oz) BMI 28.07 kg/m Physical Exam Constitutional: General: She is not in acute distress. Appearance: Normal appearance. Eyes: Conjunctiva/sclera: Conjunctivae normal. Pupils: Pupils are equal, round, and reactive to light. Cardiovascular: Rate and Rhythm: Normal rate and regular rhythm. Pulses: Normal pulses. Pulmonary: Effort: Pulmonary effort is normal. Breath sounds: Normal breath sounds. Abdominal: General: Bowel sounds are normal. There is no distension. Palpations: Abdomen is soft. There is no mass. Tenderness: There is no abdominal tenderness. There is no guarding. Skin: General: Skin is warm and dry. Coloration: Skin is not pale. Neurological: Mental Status: She is alert and oriented to person, place, and time. Assessment/Plan Diagnoses and all orders for this visit: Gastroesophageal reflux disease without esophagitis - Referral to Gastroenterology; Future Epigastric abdominal pain - Referral to Gastroenterology; Future - CBC; Future - Comprehensive Metabolic Panel; Future - Urinalysis with Reflex Microscopic; Future Indigestion - Referral to Gastroenterology; Future Other orders - Follow Up In Primary Care; Future: 3 months documented in this [facility] Work Phone: [phone]) [phone] Instructions* Patient Instructions* ROSS De León - 06/25/2022 9:00 AM EDT Avoid Caffeine Follow bland diet Avoid fast food/high fat food or fried foods documented in this [facility] Work Phone: [phone]) [phone] Instructions* Instruction Description Start Date Patient advised to follow-up with Primary Care Physician for BMI management. [facility] Work Phone: [phone]) 329-272201-18-2022 History of Present illness Narrative* Here to follow up back pain * Has been doing PT once weekly. Has had 4 sessions * Got a little worse after baking cookies. * Used a TENS unit in therapy yesterday. Noticed some areas of numbness during this time. * Back pain has improved some but worse again yesterday. No further hypersensitivity. Still the same stiffness and occasional spasm * Pain/tenderness Left lower back and into buttocks, right side with brief spasms and slightly less sensation * XRay LS done at [facility]. Report reviewed from [facility]. 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 * Disc space narrowing with subchondral sclerosis at the L5-S1 level. * Discussed how her back pain is affecting her life. Had to take something to go to sleep last night.Often wakes up with pain. Would be interested in MRI. Will get done at [facility]. If needing to see back surgeon would like to go to [facility]. [facility] Work Phone: [phone]) [phone] History of Present illness Narrative* Here to follow up back pain * Has been doing PT once weekly. Has had 4 sessions * Got a little worse after baking cookies. * Used a TENS unit in therapy yesterday. Noticed some areas of numbness during this time. * Back pain has improved some but worse again yesterday. No further hypersensitivity. Still the same stiffness and occasional spasm * Pain/tenderness Left lower back and into buttocks, right side with brief spasms and slightly less sensation * XRay LS done at [facility]. Report reviewed from [facility]. 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 * Disc space narrowing with subchondral sclerosis at the L5-S1 level. * Discussed how her back pain is affecting her life. Had to take something to go to sleep last night.Often wakes up with pain. Would be interested in MRI. Will get done at [facility]. If needing to see back surgeon would like to go to [facility]. [facility] Work Phone: chimp complaint Narrative - Reportedwellness with form -needs [facility] Work [facility]: chief complaint Narrative - Reportedwellness with form -needs annual referral [facility] Work Phone: Evaluation noteThere may be information available, but it has not been provided by the sender.[facility] Work Phone: Evaluation noteNo assessment information available [facility] Work Phone: Evaluation note* Diagnosis Onset Date Resolution Status Encounter for routine gynecological examination noneactive Postoperative pain noneactiv e [facility] Work Phone: Evaluation note* Diagnosis Onset Date Resolution Status Encounter for routine gynecological examination noneactive Postoperative pain noneactiv e Strain of tendon of lower back acute Strain of tendon of lower back acute [facility] Work Phone: Evaluation note* Diagnosis Onset Date Resolution Status Strain of tendon of lower back acute Strain of tendon of lower back acute Strain of tendon of lower back acute [facility] Work Phone: Evaluation note* Diagnosis Gastroesophageal reflux disease without esophagitis- Primary Esophageal reflux Epigastric abdominal pain Abdominal pain, epigastric Indigestion Dyspepsia and other specified disorders of function of stomach documented in this encounter [facility] Work Phone: Evaluation note* Diagnosis Onset Date Resolution Status Early satiety acute Constipation chronic Dysphagia chronic GERD (gastroesophageal reflux disease) chronic [facility] Work Phone: Evaluation note* Diagnosis Epigastric abdominal pain- Primary Abdominal pain, epigastric documented in this encounter [facility] Work Phone: Evaluation note* Diagnosis Skin 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 Epigastric abdominal pain Abdominal pain, epigastric Wellness examination documented in this encounter [facility] Work Phone: Evaluation note* Diagnosis Onset Date Resolution Status Constipation chronic Dysphagia chronic Encounter for routine gynecological examination noneactive Lack of libido noneactive [facility] Work Phone: Evaluation note* Diagnosis Onset Date Resolution Status Encounter for routine gynecological examination noneactive Lack of libido noneactive [facility] Work Phone: Evaluation note* Diagnosis Onset Date Resolution Status Cholelithiasis with chronic cholecystitis chronic GERD (gastroesophageal reflux disease) chronic [facility] Work Phone: Evaluation note* Diagnosis Annual physical exam- Primary Routine general medical examination at a health care facility Gastroesophageal reflux disease without esophagitis Esophageal reflux documented in this encounter [facility] Work Phone: Evaluation note* Diagnosis Lesion of tongue- Primary documented in this encounter [facility] Work Phone: Evaluation note* Diagnosis Rectocele- Primary documented in this encounter [facility] note* Diagnosis Rectal prolapse- Primary Other constipation Rectal prolapse documented in this encounter [facility] note* Diagnosis Annual physical exam- Primary Routine general medical examination at a health care facility Chronic bilateral low back pain with right-sided sciatica Chronic right SI joint pain Disorders of sacrum Screening, lipid Screening for diabetes mellitus documented in this encounter [facility] Work Phone: Evaluation note* Diagnosis Rectal prolapse Rectal prolapse documented in this encounter [facility] note* Diagnosis Post-operative nausea and vomiting- Primary Nausea with vomiting Pre-op evaluation Preoperative examination, unspecified Gastroesophageal reflux disease without esophagitis Esophageal reflux History of hydronephrosis Personal history of other disorder of urinary system Rectal prolapse * Assessment & Plan Note - Slava Marin APRN.METALLURGICAL OR MATERIALS TECHNICIAN - 09/22/2024 11:14 AM EDT Associated Problem(s): History of hydronephrosis Assessment: Reports she was diagnosed with acute renal failure with no cause prior to . During , developed hydronephrosis. Patient had multiple surgeries r/t stent malfunctions. Denies any new or worsening symptoms. Followed up with urology in the past. Denies any oswald=hematuria, dysuria, frequency, urgency, or flank pain. * Assessment & Plan Note - Slava Marin APRN.CNP - 09/22/2024 11:03 AM EDT Associated Problem(s): Gastroesophageal reflux disease without esophagitis Assessment: Controlled on Protonix. Advised avoidance of triggers. Following with PCP. * Assessment & Plan Note - Slava Marin APRN.CNP - 09/22/2024 11:02 AM EDT Associated Problem(s): Post-operative nausea and vomiting Assessment: Reports from prior procedures. Requesting antiemetics for control of N/V. [facility] Diagnosis Post-operative nausea and vomiting- Primary Nausea with vomiting Pre-op evaluation Preoperative examination, unspecified Gastroesophageal reflux disease without esophagitis Esophageal reflux History of hydronephrosis Personal history of other disorder of urinary system Infection following procedure Other postoperative infection Abscess of anal and rectal regions Encounter for surgical aftercare following surgery on the digestive system [facility] Author Octavio Rodríguez [facility] December 26, 2022 6:55am Note Date/Time December 26, 2022 6: 55am [facility] Medical Records Department [address] [place] [address] History & Physical Exam 12/26/22 0655 MR#: [id number] Acct: [id number] Name: LAISHA JENSEN Rep #:[id number] : 1980 42 From: Octavio Rodríguez DO PCP: ULISES REYNOSO Status:REG [facility] Location: [place] [address]- History and Physical Date of Admission: 12/26/22 42 F who presents to the office today for constipation, heartburn, bloating, gassy, dysphagia. Long hx of bowel issues following 4th degree tear when delivering baby at age 17, then had sphinteroplasty which helped somewhat. Bowels have been problematic, since prefers to hold bowels in order to use restroom at home due to issues with sphincter being weak. Can then intermittently get diarrhea which is an issue to due incontinence. So she frequently has related abd discomfort, bloating and gas. Used to take Phys[employer] Choice probiotic which helped her bowels but then got nausea/acne/abd pain when the brand she was on changed theirformula. Now taking Culturelle pre- and probiotic, started it a month ago, helpskeep her more regular. Feels like food sticks at distal esophagus, very painful, feels like twisting, can occur daily, worse with bread, getting worse over time. Did have this symptom when EGD was done in 2020. She does get acid refluxing all the way up. Can taste food she ate a day prior. Gets full quickly, but then hungry again soon. Has tried omeprazole, esomeprazole, had adverse effects. Wants to manage w/o PPI, especially considering hx of back surgeries/hardware. Had adverse effects from famotidine. 2020 EGD: LA Grade A reflux, small hiatal hernia; bxs neg H pylori, mild gastritis, neg Moreno's No prior colonoscopy ROS Const Constitutional: Positive for fatigue and weight change ENT ENT: No difficulty swallowing Gastro GI: Positive for abdominal pain, bloating, constipation, diarrhea, heartburn, excessive flatus and nausea/dyspepsia; No belching, change in bowel habits, change in stool character, coffee ground emesis, cramping, difficulty swallowing, feeling full early, incontinent of stools, Vomiting blood/hematemesis, Blood in stool, loose stools, Black,tarry stools, pain with swallowing, vomiting or other Musc Musculoskeletal: Positive for back pain and stiffness; No joint pain Skin Skin: No yellowing of the eye or itchy eyes Psych Psychiatric: No anxiety and No depression Endo Endocrine: Positive for fatigue and weight change Aller/Imm Allergy/Immunologic: No itchy eyes Rebel/Lymp Hematologic/Lymphatic: No easy bleeding or easy bruising Exam Const General: cooperative, healthy appearing and comfortable Orientation: alert, awake and oriented x3 Quality Reporting Tobacco Screening ([facility] 138) Smoking Status: Former smoker Assessment and Plan Assessment and Plan (1) Constipation: Status: Chronic Plan: 42 yr old female with chronic constipation which began after she had 4th degree tear in at age 17, then rectal sphincterplasty attempted in 2004; as aresult she doesn't have good sphincter control, therefore holds bowels and becomes constipated, but very problematic if she has diarrhea since she will have incontinence. In more recent years she also has esophageal dysphagia and perhaps spasms, acid reflux, small hiatal hernia, early satiety. She had EGD in 2020 that showed reflux esophagitis. Will get esophagram, consider esophageal manometry, will get gastric emptying study. Will test for celiac, other autoimmune disorders. Try Fiber Choice tablets to help the bowels move better. Consider digestive enzymes with meals. (2) Dysphagia: Status: Chronic Plan: see above (3) GERD (gastroesophageal reflux disease): Status: Chronic Plan: see above (4) Early satiety: Status: Acute Plan: see above Orders: Orders Esophagus Dual Contrast Today R13.10 - Dysphagia, unspecified MÓNICA Comprehensive Panel Today K21.9 - Gastro-esophageal reflux disease without esophagitis, K59.00 - Constipation, unspecified ANCA Today K21.9 - Gastro-esophageal reflux disease without esophagitis, K59.00 - Constipation, unspecified Celiac Disease Profile Today K21.9 - Gastro-esophageal reflux disease without esophagitis, K59.00 - Constipation, unspecified Gastric Emptying Study Today K21.9 - Gastro-esophageal reflux disease without esophagitis, R68.81 - Early satiety Medications: Discontinued esomeprazole magnesium (Nexium) Discontinued Reason: Pt no longer taking 40 mg PO DAILY 30 days 30 caps 4RF L.acidoph, paracasei,B. lactis Discontinued Reason: Pt no longer taking 1 ea PO DAILY supplement [id number]-[id number]-pr-stv 7-7-1.5 gram (Angel (with collagen)) Discontinued Reason: Pt no longer taking 1 ea PO DAILY I have examined the patient and the H&P has been reviewed. There are no clinicalchanges since date of exam. 12/26/22 0655 <Electronically signed by Octavio Rodríguez > Cosigner Signature (if applicable): CC: ULISES REYNOSO; Octavio Friend, ~ Signed [facility] Work Phone: History of Present illness Narrative* Last Visit:. Last Visit: 12 months. * Interval Events: Past medical, surgical, social and family history reviewed and updated. * Interval Care: She has regular dental visits. She receives routine vision care. Immunizations up todate. * Lifestyle: She consumes a diverse and healthy diet. She has weight concerns. She consumes alcohol. She reports occasional alcohol use. She typically drinks seltzers. Alcohol concern: The patient has no concerns about alcohol abuse. She uses tobacco. Tobacco Use:. Uses E-Cigarettes. She is not readyto quit using tobacco. She is sexually active. quit smoking cigarettes in 2017, was up to 1/5 ppd, now vapes occasionally. * Female Health:. Date of last period: . : 3. full term: 2 and premature: still born. endometrial oblation. She reports no abnormal menses. HPV Negative. Date of last pap smear: 10/24/20. Pap smear current:. abnormal pap at age 18. * Screening Mammogram: Date of Last Screening Mammogram: 07/2019. * Lifestyle Safety Elements: uses motorcycle helmet, uses seat belts, uses sunscreen, uses stress management tools, has no parenting problems and has guns at home. * Gun Safety Elements Used: Gun Trigger Locks, Gun Safe. Concerns raised today include: belly fat. The patient's health since the last visit is described as good [facility] Work Phone: History of Present illness Narrative* Last Visit:. Last HM Visit: 12 months. * Interval Events: Past medical, surgical, social and family history reviewed and updated. * Interval Care: She has regular dental visits. She receives routine vision care. Immunizations up todate. * Lifestyle: She consumes a diverse and healthy diet. She has weight concerns. She consumes alcohol. She reports occasional alcohol use. She typically drinks seltzers. Alcohol concern: The patient has no concerns about alcohol abuse. She uses tobacco. Tobacco Use:. Uses E-Cigarettes. She is not readyto quit using tobacco. She is sexually active. quit smoking cigarettes in 2017, was up to 1/5 ppd, now vapes occasionally. * Female Health:. Date of last period: . : 3. full term: 2 and premature: still born. endometrial oblation. She reports no abnormal menses. HPV Negative. Date of last pap smear: 10/24/20. Pap smear current:. abnormal pap at age 18. * Screening Mammogram: Date of Last Screening Mammogram: 07/2019. * Lifestyle Safety Elements: uses motorcycle helmet, uses seat belts, uses sunscreen, uses stress management tools, has no parenting problems and has guns at home. * Gun Safety Elements Used: Gun Trigger Locks, Gun Safe. Concerns raised today include: belly fat. The patient's health since the last visit is described as good [facility] Work Phone: History of Present illness NarrativePatient presents for a 6 week f/u for her low back pain and MRI results. The patient reports her back pain is unchanged from her prior visit. There is no alleviating factors; aggravating factors are positional. The patient reports completing 8 weeks of PT without noticing any difference in her symptoms. At times her pain radiates down into her legs and hips. Patient declines to take any OTC pain medication for her symptoms stating they don't work.[facility] Work Phone: History of Present illness Narrative* The last health maintenance visit was 1 year year(s) ago. Concerns raised today include: needs surgical clearance, complains of weight. The patient's health since the last visit is described as good.There are no interval changes in the patient's PMH, PSH, and current medications. There are no interval changes in the patient's social and family history. She has regular dental visits. She complains of vision problems. Vision care includes wearing glasses and an eye examination within the last year. * Lifestyle: She consumes a diverse and healthy diet. She has weight concerns. (paul abernathy has upcoming lumbar fusion surgery and she is highly stressed regarding this, limited in what type of exercise ) She does not exercise regularly. She does not use tobacco. She consumes alcohol. She reports o ccasional alcohol use. She typically drinks beer and hard liquor. * Reproductive health: she reports normal menses. (light 2-3 day, had uterine ablation). * History: 3, full term and 34 weeks premature. * Cervical cancer screening: cancer screening reviewed and updated . patient has no history of an abnormal pap smear. * Breast cancer screening: cancer screening reviewed and current . 11/01/21 last mammogram. * Metabolic screening: lipid profile performed within the past five years. * wants to loose weight however she states having sever stress/anxiety related to upcoming surgery [facility] Work Phone: History of Present illness Narrative* The last health maintenance visit was 1 year year(s) ago. Concerns raised today include: needs surgical clearance, complains of weight. The patient's health since the last visit is described as good.There are no interval changes in the patient's PMH, PSH, and current medications. There are no interval changes in the patient's social and family history. She has regular dental visits. She complains of vision problems. Vision care includes wearing glasses and an eye examination within the last year. * Lifestyle: She consumes a diverse and healthy diet. She has weight concerns. (paul abernathy has upcoming lumbar fusion surgery and she is highly stressed regarding this, limited in what type of exercise ) She does not exercise regularly. She does not use tobacco. She consumes alcohol. She reports o ccasional alcohol use. She typically drinks beer and hard liquor. * Reproductive health: she reports normal menses. (light 2-3 day, had uterine ablation). * History: 3, full term and 34 weeks premature. * Cervical cancer screening: cancer screening reviewed and updated . patient has no history of an abnormal pap smear. * Breast cancer screening: cancer screening reviewed and current . 11/01/21 last mammogram. * Metabolic screening: lipid profile performed within the past five years. * Laisha is a 41 yo female here today for a annual physical with work documents to be completed. She is also in need or surgical clearance for upcoming lumbar fusion surgery scheduled on 12/12/21. * She states she wants to loose weight however is having sever stress/anxiety related to upcoming surgery and thinks this may be hindering weight loss. She is also limited in the type of activity she is able to perform at this time. * She is concerned/fearful of possible complications with lumbar spinal fusion surgery including paralysis, she states they will be performing an anterior approach. She is fearful of loosing her bowel or bladder control. She had appointment with surgeon this week, encouraged to discuss fears and ask q uestions regarding surgery, post-op, and recovery. * Other than above no health concerns. * Is interested in medication to help with acute stress/anxiety [facility] Work Phone: Reason for referral (narrative)* Consultation (Routine) - Authorized Specialty Diagnoses / Procedures Referred By Contac t Referred To Contact Primary Care Procedures Follow Up In Primary Care Ulises Reynoso APRN-CNP [address] [facility], [place] [address] Referral ID Status Reason Start Date Expiration Date V isits Requested Visits Authorized [id number] Authorized 06/25/2022 12/22/2022 1 1 * Consultation (Routine) - Authorized Specialty Diagnoses / Procedures Referred By Dari t Referred To Contact Gastroenterology Diagnoses Gastroesophageal reflux disease without esophagitis Epigastric abdominal pain Indigestion Procedures [place] OFFICE/OUTPATIENT NEW HIGH MDM 60-74 MINUTES Ulises Reynoso APRN-CNP [address] [facility], [place] [id number] FriendOctavio DO [address] [facility] [address] [address] Referral ID Status Reason Start Date Expiration Date Visits Requested Visits Authorized [id number] Authorized Specialty Services Required 06/25/2022 12/22/2022 1 1 [facility] Work Phone: Reason for referral (narrative)* Consultation (Routine) - Authorized Specialty Diagnoses / Procedures Referred By Contac t Referred To Contact Dermatology Diagnoses Skin abnormality Procedures [place] OFFICE/OUTPATIENT NEW HIGH MDM 60-74 MINUTES Ulises Reynoso APRN-CNP [address] [facility], [address] [place] [address] Karey Bone MD [address] [facility] [place] [address] Referral ID Status Reason Start Date Expiration Date Visits Requested Visits Authorized [id number] Authorized Specialty Services Required 10/29/2022 04/27/2023 1 1 * Consultation (Routine) - Authorized Specialty Diagnoses / Procedures Referred By Dari gomez Referred To Contact Primary Care Procedures Follow Up In Primary Care - Health Maintenance Ulises Reynoso APRN-CNP [address] [facility], [address] [place] [address] Referral ID Status Reason Start Date Expiration Date V isits Requested Visits Authorized [id number] Authorized 10/29/2022 04/27/2023 1 1 [facility] Work Phone: Reason for referral (narrative)No reason for referral information availableWMercy [facility] Work Phone: Summary Purpose Family History No Family History Records FoundUnknown Family Member Name Dates Details Family history of type 2 qi betes mellitus: Mother(V18.0, Z83.3) Status:Active Family history of malignant neoplasm of kidney: Mother(V16.51, Z80.51) Status:Active No known problems: Father Status:Active Unknown Family Member Name Dates Details Family history of type 2 qi betes mellitus: Mother(V18.0, Z83.3) Status:Active Family history of malignant neoplasm of kidney: Mother(V16.51, Z80.51) Status:Active No known problems: Father Status:Active Unknown Family Member Name Dates Details Family history of type 2 qi betes mellitus: Mother(V18.0, Z83.3) Status:Active Family history of malignant neoplasm of kidney: Mother(V16.51, Z80.51) Status:Active No known problems: Father Status:Active Unknown Family Member Name Dates Details Family history of type 2 qi betes mellitus: Mother(V18.0, Z83.3) Status:Active Family history of malignant neoplasm of kidney: Mother(V16.51, Z80.51) Status:Active No known problems: Father Status:Active Unknown Family Member Name Dates Details Family history of type 2 qi betes mellitus: Mother(V18.0, Z83.3) Status:Active Family history of malignant neoplasm of kidney: Mother(V16.51, Z80.51) Status:Active No known problems: Father Status:Active Unknown Family Member Name Dates Details Family history of type 2 qi betes mellitus: Mother(V18.0, Z83.3) Status:Active Family history of malignant neoplasm of kidney: Mother(V16.51, Z80.51) Status:Active No known problems: Father Status:Active Relationship Condition Age at Onset Recorded Date/T arpita mother Diabetes mellitus Unknown Malignant neoplasm Unknown Unknown Family Member Name Dates Details Family history of type 2 qi betes mellitus: Mother(V18.0, Z83.3) Status:Active Family history of malignant neoplasm of kidney: Mother(V16.51, Z80.51) Status:Active No known problems: Father Status:Active Unknown Family Member Name Dates Details Family history of type 2 qi betes mellitus: Mother(V18.0, Z83.3) Status:Active Family history of malignant neoplasm of kidney: Mother(V16.51, Z80.51) Status:Active No known problems: Father Status:Active Advance Directives No Advanced Directives Records Found Advance Directive Response Recorded Date/ Time Living Will No November 29 021 2:28pm Power of Chief Strategy Officer No November 29, 2020 2:28pm Advance Directive Response Recorded Date/ Time Living Will No May 03 023 4:03pm Power of Chief Strategy Officer No May 03, 2022 4:03pm Advance Directive Response Recorded Date/ Time Living Will No May 03 023 5:03pm Power of Chief Strategy Officer No May 03, 2022 5:03pm Advance Directive Response Recorded Date/ Time Living Will No December 23 3:29pm Power of Chief Strategy Officer No December 23 023 3:29pm Advance Directive Response Recorded Date/ Time Living Will No December 23 2:29pm Power of Chief Strategy Officer No December 23 023 2:29pm Advance Directive Response Recorded Date/ Time Living Will No July 02, 2023 10:31am Power of Chief Strategy Officer No July 01 10:31am Advance Directive Response Recorded Date/ Time Do you have a Healthcare Power of Chief Strategy Officer? 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/PT HAS RX LOWER BACK INJURY/[facility] EORDER- low back pain 1 WK FU Reason for Visit Encounter for routin e gynecological examination Postoperative pain Strain of tendon of lower back Strain of tendon of lower back Chief Complaint LOWER BACK INJURY/WC H EORDER- low back pain 1 WK FU 2 WK FOLLOW UP LOW BACK PAIN Reason for Visit Strain of tendon of lower back Strain of tendon of lower back Strain of tendon of lower back Chief Complaint LOWER BACK INJURY/WC H EORDER- low back pain 1 WK FU 2 WK FOLLOW UP LOW BACK PAIN LUMBAR FUSION Reason for Visit Strain of tendon of lower back Strain of tendon of lower back Strain of tendon of lower back Chief Complaint LOW BACK PAIN LUMBAR FUSION Consult Reason for Visit Early satiety Constipation Dysphagia GERD (gastroesophageal reflux disease) Chief Complaint LOW BACK PAIN LUMBAR FUSION Consult DYSPHAGIA Gastro-esophageal reflux disease without esophagit Reason for Visit Early satiety Constipation Dysphagia GERD (gastroesophageal reflux disease) Chief Complaint Consult DYSPHAGIA Gastro-esophageal reflux disease without esophagit Encounter for screening mammogram for malignant ne Reason for Visit Early satiety Constipation Dysphagia GERD (gastroesophageal reflux disease) Chief Complaint Encounter for screen ing mammogram for malignant ne Follow up 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) PAP Reason for Visit Constipation Dysphagia Encounter for routine gynecological examination Lack of libido Chief Complaint Follow up 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) PAP EPIGASTRIC PAIN Reason for Visit Constipation Dysphagia Encounter for routine gynecological examination Lack of libido Chief Complaint 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) PAP EPIGASTRIC PAIN EPIGASTRIC PAIN Reason for Visit Encounter for routin e gynecological examination Lack of libido Chief Complaint EPIGASTRIC PAIN EPIGASTRIC PAIN RUQ PAIN/GALLBLADDER EORDER Reason for Visit Cholelithiasis with chronic cholecystitis GERD (gastroesophageal reflux disease) Chief Complaint EPIGASTRIC PAIN EPIGASTRIC PAIN RUQ PAIN/GALLBLADDER EORDER Laparoscopic, Cholecystectomy with IOC Laparoscopic, Cholecystectomy with IOC Reason for Visit Cholelithiasis with chronic cholecystitis GERD (gastroesophageal reflux disease) Chief Complaint Admit Date Test Result March 10, 2024 1:55pm Menopause sx June 30, 2024 2:06 pm Reason for Visit Admit Date Ischemic colitis March 10, 2024 1:55pm Rectal prolapse March 10, 2024 1:55pm Rectocele March 10, 2024 1:55pm Hot flashes June 30, 2024 2:06 pm Chief Complaint Admit Date Menopause sx June 30, 2024 2:06 pm EMPLOYEE [facility] September 08, 2024 10:1 8am pain October 12, 2024 8:38 am Reason for Visit Admit Date Hot flashes June 30, 2024 2:06 pm Chief Complaint Admit Date Menopause sx June 30, 2024 2:06 pm EMPLOYEE LAB September 08, 2024 10:1 8am pain October 12, 2024 8:38 am RASH UNDER NOSE October 21, 2024 3:21 pm Additional Source Comments INFORMATION SOURCE (unrecogn ized section and content) DATE CREATED AUTHOR 11/21/2017 [facility] DATE CREATED AUTHOR AUTHOR'S ORGANIZ ATION 11/23/2021 [employer] DATE CREATED AUTHOR AUTHOR'S ORGANIZ ATION 12/14/2022 [facility] DATE CREATED AUTHOR AUTHOR'S ORGANIZ ATION 08/31/2024 [facility] DATE CREATED AUTHOR AUTHOR'S ORGANIZ ATION 09/24/2024 [facility] DATE CREATED AUTHOR AUTHOR'S ORGANIZ ATION 10/17/2024 [facility] DATE CREATED AUTHOR AUTHOR'S ORGANIZ ATION 10/24/2024 [facility] Reason for Visit (unrecogniz ed section and content) Reason For Visit Description New - 1st visit with practice Preliminary reason f or visit data, not yet signed by the author as of lower back pain Reason Comments GI referral Reason Comments GERD 3 month Specialty Diagnoses / Procedures Referred By Contac t Referred To Contact Primary Care Procedures Follow Up In Primary Care Ulises Reynoso, CORRECTION WARDEN-METALLURGICAL OR MATERIALS TECHNICIAN [address] [facility], [address] [place] [address] Referral ID Status Reason Start Date Expiration Date V isits Requested Visits Authorized [id number] Authorized 06/25/2022 12/22/2022 1 1 Reason Comments Annual Exam Reason Comments Establish Care Reason Comments TONGUE LESION ON BACK OF TO NGUE BY TONSILS Reason Comments Manometry Reason Comments Annual Exam Reason Comments Radio GI Main HB6 Specialty Diagnoses / Procedures Referred By Contac t Referred To Contact XR IMAGING Diagnoses Rectal prolapse Procedures XR DEFECOGRAPHY RADIOLOGIC EXAM COLON SINGLE CONTRAST STUDY Clare Mobley DO [address] [place] [address] Phone: tel: fax: [place] [address] Referral ID Status Reason Start Date Expiration Date V isits Requested Visits Authorized [id number] Closed Auto-Generate d Referral 08/10/2024 09/09/2025 1 1 Reason Comments Anesthesia Consult Reason Comments Patient Question Reason Comments Patient Update Reason Comments Post Op Goals (unrecognized section and content) Goals may be documented in a n alternate sectionGoals may be documented in an alternate sectionGoals may be documented in an alternate sectionGoals may be documented in an alternate sectionGoals may be documented in an alternate sectionGoals may be documented in an alternate sectionGoals may be documented in an alternate sectionGoals may be documented in an alternate sectionGoals may be documented in an alternate sectionGoals may be documented in an alternate sectionGoals may be documented in an alternate sectionGoals may be documented in an alternate sectionGoals may be documented in an alternate sectionGoals may be documented in an alternate sectionGoals may be documented in an alternate sectionGoals may be documented in an alternate section Care Teams (unrecognized sec tion and content) Team Status: Active Member Role Status Dates Estephania Red DESPATCHING AND RECEIVING CLERK, DESPATCHING AND RECEIVING CLERK-C Family Provider Active No Primary Care Physician Primary Care Provider Active Team Status: Inactive Member Role Status Dates Liz Iraheta DESPATCHING AND RECEIVING CLERK, DESPATCHING AND RECEIVING CLERK-C Attending Provider Active ANGELES MONTGOMERY Primary Care Provider, Referring Provider Active Team Status: Inactive Member Role Status Dates Mario Avalos PA, PA Attending Provider Active Team Status: Inactive Member Role Status Dates No Primary Care Physician Primary Care Provider, Refer ring Provider Active Mario CÁRDENAS PA Attending Provider Active Team Status: Inactive Member Role Status Dates Soraya Landry DESPATCHING AND RECEIVING CLERK, DESPATCHING AND RECEIVING CLERK-C Attending Provider, Referr ing Provider Active ANGELES MONTGOMERY Primary Care Provider Active Team Status: Inactive Member Role Status Dates Mario CÁRDENAS, PA Attending Provider, Referring Provi adrianna Active No Primary Care Physician Primary Care Provider Active Team Status: Inactive Member Role Status Dates No Primary Care Physician Primary Care Provider Active Dr. Jasen Smart , DO Attending Provider, Referring P roabimaelder Active Fuel Conversion Technician Relationship Specialty Start Date End Date Ulises Reynoso, CORRECTION WARDEN-METALLURGICAL OR MATERIALS TECHNICIAN [address] [facility], [place] [address] PCP - General Family Medicine 06/20/22 Team Status: Inactive Member Role Status Dates No Primary Care Physician Primary Care Provider Active Dr. Jasen Smart , Attending Provider Active Team Status: Inactive Member Role Status Dates No Primary Care Physician Referring Provider Active Kim Waggoner DESPATCHING AND RECEIVING CLERK, DESPATCHING AND RECEIVING CLERK-C Attending Provider Active ANGELES MONTGOMERY Primary Care Provider Active Team Status: Inactive Member Role Status Dates ANGELES MONTGOMERY Primary Care Provide r, Attending Provider, Referring Provider Active Team Status: Inactive Member Role Status Dates No Primary Care Physician Primary Care Provider Active Kim Waggoner DESPATCHING AND RECEIVING CLERK, DESPATCHING AND RECEIVING CLERK-C Attending Provider, Referrin g Provider Active Team Status: Inactive Member Role Status Dates Kim Waggoner DESPATCHING AND RECEIVING CLERK, DESPATCHING AND RECEIVING CLERK-C Attending Provider, Referrin g Provider Active No Primary Care Physician Primary Care Provider Active Team Status: Active Member Role Status Dates Kim Waggoner DESPATCHING AND RECEIVING CLERK, DESPATCHING AND RECEIVING CLERK-C Attending Provider, Referrin g Provider Active No Primary Care Physician Primary Care Provider Active Fuel Conversion Technician Relationship Specialty Start Date End Date Ulises Reynoso, CORRECTION WARDEN-METALLURGICAL OR MATERIALS TECHNICIAN [address] [facility], [facility] [address] [place] [address] PCP - General Family Medicine 06/20/22 Fuel Conversion Technician Relationship Specialty Start Date End Date Ulises Reynoso, CORRECTION WARDEN-METALLURGICAL OR MATERIALS TECHNICIAN [address] [facility], [address] [place] [id number] PCP - General Family Medicine 06/20/22 Team Status: Inactive Member Role Status Dates No Primary Care Physician Primary Care Provider Active Liz Iraheta DESPATCHING AND RECEIVING CLERK, DESPATCHING AND RECEIVING CLERK-C Attending Provider, Referring Provider Active Team Status: Active Member Role Status Dates Estephania Red DESPATCHING AND RECEIVING CLERK, DESPATCHING AND RECEIVING CLERK-C Family Provider Active ULISES REYNOSO Primary Care Provider Active Team Status: Active Member Role Status Dates Dr. Octavio Rodríguez DO Attending Provider, Other Prov ider Active ANGELES MONTGOMERY Primary Care Provider, Referring Provider Active Team Status: Inactive Member Role Status Dates Dr. Octavio Rodríguez DO Attending Provider Active ANGELES MONTGOMERY Primary Care Provider, Referring Provider Active Team Status: Inactive Member Role Status Dates No Primary Care Physician Referring Provider Active Liz Iraheta DESPATCHING AND RECEIVING CLERK, DESPATCHING AND RECEIVING CLERK-C Attending Provider Active ANGELES MONTGOMERY Primary Care Provider Active Team Status: Inactive Member Role Status Dates No Primary Care Physician Primary Care Provider Active Liz Iraheta DESPATCHING AND RECEIVING CLERK, DESPATCHING AND RECEIVING CLERK-C Attending Provider Active Team Status: Inactive Member Role Status Dates No Primary Care Physician Primary Care Provider Active Dr. Octavio Rodríguez DO Attending Provider, Referring Provider Active Team Status: Active Member Role Status Dates Estephania Red NP, DESPATCHING AND RECEIVING CLERK-C Family Provider Active Dr. Reed Herrera MD Primary Care Provider Active Team Status: Inactive Member Role Status Dates Dr. Pepe Titus MD Attending Provider Active Dr. Reed Herrera MD Primary Care Provider, Referrin g Provider Active Team Status: Inactive Member Role Status Dates Dr. Reed Herrera MD Primary Care Provider Active Dr. Pepe Titus MD Attending Provider, Referring Provider Active Team Status: Active Member Role Status Dates Estephania Red DESPATCHING AND RECEIVING CLERK, DESPATCHING AND RECEIVING CLERK-C Family Provider Active SONIA PEREZ Primary Care Provider Active Team Status: Active Member Role Status Dates Dr. Pepe Titus MD Attending Provid er, Referring Provider, Other Provider Active CHRIS SCOTT Primary Care Provider Active Team Status: Inactive Member Role Status Dates Dr. Pepe Titus MD Attending Provider, Referring Provider Active CHRIS SCOTT Primary Care Provider Active Fuel Conversion Technician Relationship Specialty Start Date End Date Sonia Perez MD [address] [place] [address] PCP - General Family Medicine 08/28/23 Fuel Conversion Technician Relationship Specialty Start Date End Date Sonia Perez MD [address] [id number] PCP - General Family Medicine 03/12/24 Team Status: Active Member Role Status Dates Estephania Red DESPATCHING AND RECEIVING CLERK, DESPATCHING AND RECEIVING CLERK-C Family Provider Active Dr. Sonia Peerz MD Primary Care Provider Active Team Status: Inactive Member Role Status Dates Dr. Sonia Perez MD Primary Care Provider Active Start: March 10, 2024 End: March 10, 2024 Dr. Sonia Perez MD Referring Provider Active Start: March 10, 2024 End: March 10, 2024 Dr. Octavio Rodríguez DO Attending Provider Active Start: March 10, 2024 End: March 10, 2024 Team Status: Inactive Member Role Status Dates Dr. Sonia Perez MD Primary Care Provider Active Start: March 10, 2024 End: March 10, 2024 Dr. Octavio Rodríguez DO Attending Provider Active Start: March 10, 2024 End: March 10, 2024 Dr. Octavio Rodríguez DO Referring Provider Active Start: March 10, 2024 End: March 10, 2024 Team Status: Inactive Member Role Status Dates Dr. Sonia Perez MD Primary Care Provider Active Start: June 30, 2024 End: June 30, 2024 Dr. Sonia Perez MD Referring Provider Active Start: June 30, 2024 End: June 30, 2024 Liz Iraheta DESPATCHING AND RECEIVING CLERK, DESPATCHING AND RECEIVING CLERK-C Attending Provider Active Start: June 30, 2024 End: June 30, 2024 Team Status: Inactive Member Role Status Dates Dr. Sonia Perez MD Primary Care Provider Active Start: June 30, 2024 End: June 30, 2024 Liz Iraheta DESPATCHING AND RECEIVING CLERK, DESPATCHING AND RECEIVING CLERK-C Attending Provider Active Start: June 30, 2024 End: June 30, 2024 Liz Iraheta DESPATCHING AND RECEIVING CLERK, DESPATCHING AND RECEIVING CLERK-C Referring Provider Active Start: June 30, 2024 End: June 30, 2024 Fuel Conversion Technician Relationship Specialty Start Date End Date Reed Herrera [address] [facility] [place] [address] [place] [id number] PCP - General 03/07/20 Fuel Conversion Technician Relationship Specialty Start Date End Date Reed Herrera MD [address] [place] [place] [address] PCP - General 05/18/04 Fuel Conversion Technician Relationship Specialty Start Date End Date Sonia Perez MD [address] [place] [address] [address] [id number] PCP - General Family Medicine 03/12/24 Fuel Conversion Technician Relationship Specialty Start Date End Date Sonia Garza APRN [address] [place] [address] [place] [address] PCP - General Family Medicine 09/09/24 Fuel Conversion Technician Relationship Specialty Start Date End Date Sonia Garza APRN [address] [place] [address] [place] [address] PCP - General Family Medicine 09/09/24 Fuel Conversion Technician Relationship Specialty Start Date End Date Sonia Garza APRN [address] [place] [address] [place] [address] PCP - General Family Medicine 09/09/24 Fuel Conversion Technician Relationship Specialty Start Date End Date Sonia Garza APRN [address] [place] [address] [place] [address] PCP - General Family Medicine 09/09/24 Team Status: Active Member Role/Relationship Status Dates Dr. Sonia Perez MD Primary Care Provider Active Team Status: Inactive Member Role/Relationship Status Dates Dr. Sonia Perez MD Primary Care Provider Active Start: June 30, 2024 End: June 30, 2024 Dr. Sonia Perez MD Referring Provider Active Start: June 30, 2024 End: June 30, 2024 Liz Iraheta DESPATCHING AND RECEIVING CLERK, DESPATCHING AND RECEIVING CLERK-C Attending Provider Active Start: June 30, 2024 End: June 30, 2024 Team Status: Inactive Member Role/Relationship Status Dates Dr. Sonia Perez MD Primary Care Provider Active Start: June 30, 2024 End: June 30, 2024 Liz Iraheta DESPATCHING AND RECEIVING CLERK, DESPATCHING AND RECEIVING CLERK-C Attending Provider Active Start: June 30, 2024 End: June 30, 2024 Liz Iraheta DESPATCHING AND RECEIVING CLERK, DESPATCHING AND RECEIVING CLERK-C Referring Provider Active Start: June 30, 2024 End: June 30, 2024 Team Status: Active Member Role/Relationship Status Dates Dr. Sonia Perez MD Primary Care Provider Active Start: September 08, 2024 Health Risk Assessment Attending Provider Active Start: September 08, 2024 Health Risk Assessment Referring Provider Active Start: September 08, 2024 Team Status: Inactive Member Role/Relationship Status Dates Dr. Sonia Perez MD Primary Care Provider Active Start: October 12, 2024 End: October 12, 2024 Dr. Milton Vance DO Emergency Provider Active Start : October 12, 2024 End: October 12, 2024 Fuel Conversion Technician Relationship Specialty Start Date End Date Sonia Garza APRN [address] [place] [address] [place] [address] PCP - General Family Medicine 09/09/24 Fuel Conversion Technician Relationship Specialty Start Date End Date Sonia Garza APRN [address] [place] [address] [place] [address] PCP - General Family Medicine 09/09/24 Team Status: Inactive Member Role/Relationship Status Dates Dr. Sonia Perez MD Primary Care Provider Active Start: October 12, 2024 End: October 12, 2024 Dr. Milton Vance DO Attending Provider Active Start : October 12, 2024 End: October 12, 2024 Dr. Milton Vance DO Emergency Provider Active Start : October 12, 2024 End: October 12, 2024 Team Status: Inactive Member Role/Relationship Status Dates Dr. Sonia Perez MD Primary Care Provider Active Start: October 21, 2024 End: October 21, 2024 Dr. Sonia Perez MD Referring Provider Active Start: October 21, 2024 End: October 21, 2024 Mario CÁRDENAS PA Attending Provider Active Sta rt: October 21, 2024 End: October 21, 2024 <item> Privacy Markings (unrecogniz ed section and content) Section Author: Ele Rust PROHIBITION ON REDISCLOSURE OF CONFIDENTIAL INFORMATION This notice accompanies a disclosure of information concerning a client made to you with the consent of such client. Source Comments (unrecognize d section and content) In the event this informatio n is protected by the Federal Confidentiality of Alcohol and Drug Abuse Patient Records regulations: The Federal rules restrict any use of the information to criminally investigate or prosecute any alcohol or drug abuse patient.[facility] the event this information is protected by the Federal Confidentiality of Alcohol and Drug Abuse Patient Records regulations: The Federal rules restrict any use of the information to criminally investigate or prosecute any alcohol or drug abuse patient.[facility] Center[facility] the event this information is protected by the Federal Confidentiality of Alcohol and Drug Abuse Patient Records regulations: The Federal rules restrict any use of the information to criminally investigate or prosecute any alcohol or drug abuse patient.[facility] the event this information is protected by the Federal Confidentiality of Alcohol and Drug Abuse Patient Records regulations: The Federal rules restrict any use of the information to criminally investigate or prosecute any alcohol or drug abuse patient.[facility] Center[facility] the event this information is protected by the Federal Confidentiality of Alcohol and Drug Abuse Patient Records regulations: The Federal rules restrict any use of the information to criminally investigate or prosecute any alcohol or drug abuse patient.[facility] Center[facility] the event this information is protected by the Federal Confidentiality of Alcohol and Drug Abuse Patient Records regulations: The Federal rules restrict any use of the information to criminally investigate or prosecute any alcohol or drug abuse patient.[facility] Center[facility] the event this information is protected by the Federal Confidentiality of Alcohol and Drug Abuse Patient Records regulations: The Federal rules restrict any use of the information to criminally investigate or prosecute any alcohol or drug abuse patient.[facility] FOR RECORDS PERTAINING TO PATIENTS WHO ARE OR HAVE BEEN ENROLLED IN A CHEMICAL DEPENDENCY/SUBSTANCEABUSE PROGRAM, SOME INFORMATION MAY BE OMITTED. This clinical summary was aggregated from multiple sources. Caution should be exercised in using it in the provision of clinical care. This summary normalizes information from multiple sources, and as a consequence, information in this document may materially change the coding, format and clinical context of patient data. In addition, data may be omitted in some cases. CLINICAL DECISIONS SHOULD BE BASED ON THE PRIMARY CLINICAL RECORDS. [facility] [facility]. provides no warranty or guarantee of the accuracy or completeness of information in this document.
== END | disposition home or self-care (01) ==
LOC: RAD 06:46
PROVIDERS: PCP Family Medicine; Referring Provider Anesthesiology Pain Medicine; Visit Provider Anesthesiology Pain Medicine
DX: M96.1 Postlaminectomy syndrome, not elsewhere classified (principal)
CPT/HCPCS: 72114

== ENCOUNTER 2024-12-06 12:01 | Day surgery (SDC) | payer OTHER, SELFPAY ==
[2024-12-06] VITALS (7 sets, daily range): BP systolic 89–103; BP diastolic 67–75; PULSE 68–78; RESP 12–16; TEMP 36.3–36.9; O2SAT 99–100; BMI 23.9
[2024-12-06 12:32] LABS: Internal QC Validated? YES +Cl - CLEAR BKGD; Pregnancy, Urine Negative Negative; Record Kit Lot#,Urine Preg 0000964736
--- NOTE | 2024-12-06 12:33 | PCM.PRE.AN2 ---
ASA Classification* ASA Classification ASA Classification: 2 Assessment & Plan Anesthesia* Anesthesia Assessment Anesthesia Assessment: Discussed sedation and/or anesthesia options, risks, benefits, and alternatives with patient/parents/legal guardian/POA. Questions invited. The patient/parents/legal guardian/POA seems to understand and agrees to proceed with anesthesia plan. Reviewed the physical assessment, medical history, allergy history and patient home medications list prior to surgery/procedure/anesthetic and documented any changes. Performed airway and anesthesia risk assessments. Anesthesia Type Anesthesia Type: MAC Anesthesia Focused Assessment* Temperature: 98.4 F Pulse Rate: 73 Blood Pressure: 97/72 Respiratory Rate: 12 Pulse Ox: 100 Airway Assessment Mouth opens: >3 cm Mallampati Score: II Labs Anesthesia Preop lab: CBC WBC 9.0 K/mm3 (4.4-11.0) 10/12/24 09:02 10/12/24 RBC 4.91 M/mm3 (4.2-5.4) 10/12/24 09:02 10/12/24 Hgb 14.5 g/dL (12.0-15.0) 10/12/24 09:02 10/12/24 Hct 44.8 % (37-47) 10/12/24 09:02 10/12/24 Plt Count 292 K/mm3 (150-450) 10/12/24 09:02 10/12/24 CHEMISTRY Potassium 3.9 mmol/L (3.3-5.1) 10/12/24 09:02 10/12/24 Sodium 137 mmol/L (133-145) 10/12/24 09:02 10/12/24 Phosphorus 3.1 mg/dL (2.7-4.5) 09/08/24 10:21 09/08/24 BUN 8 mg/dL (4-19) 10/12/24 09:02 10/12/24 Creatinine 0.78 mg/dL (0.70-1.20) 10/12/24 09:02 10/12/24 Glucose 104 mg/dL (70-99) H 10/12/24 09:02 10/12/24 TSH 0.981 uIU/mL (0.300-4.200) 06/30/24 14:27 06/30/24 COAG Urine Test Negative Negative 12/06/24 12:20 12/06/24 [facility] Clinic Negative 07/28/19 13:46 07/28/19 Pre-Assessment Diagnosis/Proposed Procedure Planned Operative Procedure(s): BLOCK CAUDAL Anesthesia History Anesthesia History - social service manager: Anesthesia History - social service manager Hx Hospitalization No 12/02/24 09:53 Any Problems With Anesthesia No 12/02/24 09:53 Cholinesterase deficiency No 12/02/24 09:53 You/Your Family Experience No 12/02/24 09:53 fever (hyperthermia) with Relationship Recent Exposure to Contagious No 12/06/24 12:29 Disease Does patient have nerve No 12/02/24 09:53 stimulator Patient instructed to have device shut off --Does patient have Pacemaker No 12/06/24 12:29 or ICD? When Was Last Pacemaker Check QUESTION #4 FULL TEXT: You/Your Family Experience fever (hyperthermia) with Anesthesia Last Oral Intake Last Oral intake: Last Oral Intake NPO since 07:30 12/06/24 12:29 Meds taken in AM with sips of water? Meds patient instructed to take am of surgery PONV PONV - social service manager: PONV - social service manager Female Yes 12/02/24 09:53 HX of Motion Sickness No 12/02/24 09:53 HX of N/V After Surgery No 12/02/24 09:53 Non-Smoker Yes 12/02/24 09:53 Duration of Surgery greater No 12/02/24 09:53 than 60 minutes Number of Risk Factors 2 12/02/24 09:53 PONV Score Moderate Risk 12/02/24 09:53 Height & Weight Height & Weight: Anesthesia: Height & Weight Height 5 ft 6 in 12/06/24 12:29 Weight: 67.3 kg 12/06/24 12:29 Body Mass Index (BMI) 23.9 12/06/24 12:29 Respiratory Assessment Respiratory Assessment - social service manager: Respiratory Tract Infection Hx - social service manager Hx Respiratory Tract Infection No 12/02/24 09:53 STOP Sleep Apnea STOP Sleep Apnea - social service manager: STOP Sleep Apnea - social service manager Hx Hypertension No 12/02/24 09:53 Hx Sleep Apnea No 12/02/24 09:53 CPAP BIPAP Do you snore loudly (louder No 12/02/24 09:53 than talking or can be heard Do you often feel tired/ Yes 12/02/24 09:53 fatigued/ sleepy during daytime? Has anyone observed you stop No 12/02/24 09:53 breathing during sleep? STOP Results Negative 12/02/24 09:53 QUESTION #5 FULL TEXT : Do you snore loudly (louder than talking or can be heard through closed doors)? Tobacco Use History Tobacco Use History - social service manager: Tobacco Use History - social service manager Tobacco Use Smoking Status Former smoker 12/02/24 09:53 Hx Tobacco Use No 12/02/24 09:53 Years Smoking Packs Smoked per Day Smoking Cessation Date was Yes - quit smoking within 15 12/02/24 09:53 within the last 15 years years Hx Smoking Cessation Date 03/24/17 12/02/24 09:53 Hx Smoking Cessation Counseling Hematologic Medial History Hematologic Hx - social service manager: Hematologic Medical Hx - sliver former Hx of Blood Transfusion No 12/02/24 09:53 Hx of Transfusion in last 3 No 12/02/24 09:53 Months Date of Last Transfusion (if within last 3 months) Ever experience any problems No 12/02/24 09:53 with transfusion(s)? Specify any problems Hx of Preganancy in last 3 No 12/02/24 09:53 Months Nurse Filling Out Transfusion DSCHRIBER 12/02/24 09:53 & Questions: Date: 12/02/24 12/02/24 09:53 Time: 09:54 12/02/24 09:53 Patient unable to answer at this time (ie. confused, unrespo /Reproduction History /Reproductive History - social service manager: /Reproductive Hx- social service manager Hx Now No 12/02/24 09:53 Gestational Age (in weeks): EDC: Hx Hx Para Hx Section SAB No 12/02/24 09:53 Active Medications Active Medications: Current Medications Generic Name Dose Route Start Last Admin Trade Name Freq PRN Reason Stop Dose Admin Lactated Ringer's 1,000 mls @ 15 mls/hr 12/06/24 12:15 IV .Q48H BRENDA PFSH Medical History History of steroid therapy History of hiatal hernia History of renal disease GERD (gastroesophageal reflux disease) Gastric reflux Wears glasses Loose, teeth Alcohol use Back pain History of diverticulitis Former smoker History of pain when walking vericose vein surgery Leg swelling Leg pain Home Medications ?Medication ?Instructions ?Recorded ?Last Taken ?Type multivitamin 1 tab PO DAILY 10/24/20 12/05/24 History Lactobacillus acidophilus 250 500 mmu cells PO DAILY 12/23/22 12/05/24 History million cell capsule (Probiotic Acidophilus) psyllium husk 0.4 gram capsule 0.8 g PO DAILY 07/02/23 12/05/24 History (Daily Fiber) pantoprazole 20 mg tablet,delayed 20 mg PO Q12H #60 tabs 11/01/24 12/05/24 Rx release magnesium 250 mg tablet 250 mg PO QHS 12/02/24 12/05/24 History Allergy/AdvReac Type Severity Reaction Status Date / Time latex Allergy Severe Other Verified 12/06/24 12:29 nitrofurantoin (From Allergy Intermediate Nausea Verified 12/06/24 12:29 Macrobid) esomeprazole (From Nexium) AdvReac Intermediate Other Verified 12/06/24 12:29 Family History Mother Diabetes Cancer renal cell carsinoma Surgical History Hx of surgical procedure History of endometrial ablation Hx of oral surgery Hx of colonoscopy History of esophagogastroduodenoscopy (EGD) History of back surgery H/O spinal fusion Hx of vein stripping Hx of rectal sphincterotomy History of hysteroscopy H/O dilation and curettage 4th degree tear in sphincterplasty delivery delivered Social History Smoking Status: Former smoker alcohol intake: current details: social substance use type: does not use caffeine: Yes frequency: 1-2 times per week seatbelt use: always do you feel safe at home: Yes 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
[2024-12-06] MEDS: Lactated Ringers 1,000 ML 15 ML IV (12:38)
--- NOTE | 2024-12-06 13:05 | RAD_ITS ---
PROCEDURE: FLUOR GUIDANCE FOR SPINE INJ 12/06/2024 REASON FOR EXAM: CAUDAL BLOCK TECHNIQUE: Procedure Code: RADSPN Modality: DX Procedure: FLUOR GUIDANCE FOR SPINE INJ Radiation dose: 4.8 seconds of fluoroscopy. 3.28 mGy. 1 image was submitted. COMPARISON: None FINDINGS: Intraoperative fluoroscopic services provided for caudal block. RAD/Fluor Guidance for Spine Inj IMPRESSION: Intraoperative fluoroscopic services provided for caudal block. Reading Location: [facility]
[2024-12-06] MEDS: Lidocaine 1% (5 ml sdv) 5 ML Vial (13:08)
[2024-12-06] MEDS: 0.9% Normal Saline (Pres. free 10 ML Vial (13:10)
--- NOTE | 2024-12-06 13:10 | OP.PCM_ITS ---
Operative Report (Standard) Operative Information Date of Procedure: 12/06/24 Pre-Operative Diagnosis: Lumbosacral radiculopathy, lumbosacral degenerative disc disease, lumbosacral spinal stenosis Post-Operative Diagnosis: Lumbosacral radiculopathy, lumbosacral degenerative disc disease, lumbosacral spinal stenosis Surgery/Procedure Performed: Diagnostic/therapeutic caudal epidural steroid injection under fluoroscopic guidance president and chief executive officer: No Type of Anesthesia: Local MAC RN Documented Start/Stop Times: Operation Date: 12/06/24 13:40 Case Time Into Pre-Op 12/06/24 12:14 Out of Pre-Op 12/06/24 12:51 Anesthesia Start 12/06/24 13:05 Into Room 12/06/24 13:05 Procedure Start 12/06/24 13:08 Procedure Start Time: 13:11 Procedure Stop Time: 13:12 Select all DRAINS/GRAFTS/IMPLANTS that apply: None Estimated Blood Loss: 0 Specimen collected: No Description of surgery: ANESTHESIA: MAC. BLOOD LOSS: Minimal. COMPLICATIONS: None. DESCRIPTION OF PROCEDURE: History and physical of today was reviewed. Risks and benefits of the procedure were explained. The patient understood and agreed to proceed. Informed consent was obtained. IV inserted per routine protocol. The patient was taken to the operating room and placed in the prone position with a pillow positioned underneath the abdomen. The lower back and tailbone area was prepped and draped in a sterile fashion using iodine x3. Under fluoroscopy guidance on a lateral view, the caudal space was identified. The skin and subcutaneous tissue was anesthetized with approximately 3 mL of 1% lidocaine using a 25-gauge regular needle. Under direct visualization with fluoroscopy, using a 22-gauge 3-1/2-inch spinal needle, the needle was advanced via the skin through the sacral hiatus. The tip of the needle was passed through the sacrococcygeal ligament and advanced to approximately S4 area. After negative aspiration of blood or CSF, a total of 3 mL of contrast was injected to confirm correct placement of the needle as well as cephalad spread. The spread was followed to approximately L5 area. After confirmation on AP as well as lateral view and repeated negative aspiration, a total of 15 mL of pre servative-free 0.125% Marcaine with 80 mg of Depo-Medrol was injected easily. The needle was then removed intact. The patient experienced no sign or symptoms of intrathecal or intravascular injection. The patient experienced no paresthesia. The procedure was completed without any apparent difficulty or any complications. The patient appeared to tolerate it well. ASSESSMENT AND PLAN: This is a 44-year-old female with Lumbosacral radiculopathy, lumbosacral spinal stenosis, lumbosacral degenerative disc disease, status post diagnostic/therapeutic caudal epidural steroid injection under fluoroscopic guidance, patient will continue her current medications, patient will follow-up in approximately 2 weeks for reevaluation. Surgical Findings: none Complications Complications: No Admit VTE Documentation VTE Present on Admission: No VTE Mechan Device Prophylaxis: None VTE Pharm Prophylaxis ordered?: No
--- NOTE | 2024-12-06 13:16 | PCM.POST.ANE ---
Anesthesia: Postop Eval I Current Vital Signs Temperature: 97.4 F Pulse Rate: 78 Blood Pressure: 103/67 Respiratory Rate: 16 Pulse Ox: 100 Oxygen Delivery Method: Room Air Assessment Airway patent: Yes Spontaneous unlabored respirations: Yes Mental status: Awake and Calm nausea: No Vomiting: No Anesthesia Complication: No Fluid Hydration Crystalloid volume administer (ml): 200 Total IV fluid infused: 200 Progress Note Anesthesia document: Postop Eval 1 completed: Yes
--- NOTE | 2024-12-06 14:11 | POSTOPAN2_ITS ---
Anesthesia Postop Eval I Sum Postop Eval Completion status Anesthesia document: Postop Eval 1 completed: Yes Anesthesia Postop Eval I Summary Anesthesia Postop Eval I Summary: Anesthesia Postop Eval I: Assessment Summary Airway patent Yes 12/06/24 13:16 SUPPLIER DEVELOPMENT MANAGER.MIRANDAOBTamanna Spontaneous unlabored Yes 12/06/24 13:16 SUPPLIER DEVELOPMENT MANAGER.BRANDEN respirations Mental status Awake,Calm 12/06/24 13:16 SUPPLIER DEVELOPMENT MANAGER.MIRANDAOBTamanna nausea No 12/06/24 13:16 SUPPLIER DEVELOPMENT MANAGER.MIRANDAOBTamanna Vomiting No 12/06/24 13:16 SUPPLIER DEVELOPMENT MANAGER.BRANDEN Anesthesia Postop Eval I: Fluid Summary Crystalloid volume administer 200 12/06/24 13:16 SUPPLIER DEVELOPMENT MANAGER.MIRANDAOBY (ml) Colloids volume administered ( ml) Blood Product volume administered (ml) Total IV fluid infused 200 12/06/24 13:16 SUPPLIER DEVELOPMENT MANAGER.BRANDEN Anesthesia Postop Eval I: Summary Notes Anesthesia Complication No 12/06/24 13:16 SUPPLIER DEVELOPMENT MANAGER.BRANDEN Anesthesia Complication Comment: Post-operative progress note Anesthesia: Postop Eval II Evaluation Mental status: Awake Pain Level: 0 nausea: No Vomiting: No
--- NOTE | 2024-12-06 14:11 | PCM.POSTANE2 ---
Anesthesia Postop Eval I Sum Postop Eval Completion status Anesthesia document: Postop Eval 1 completed: Yes Anesthesia Postop Eval I Summary Anesthesia Postop Eval I Summary: Anesthesia Postop Eval I: Assessment Summary Airway patent Yes 12/06/24 13:16 JIG BORE TOOL MAKER.MIRANDAOBTamanna Spontaneous unlabored Yes 12/06/24 13:16 JIG BORE TOOL MAKER.BRANDEN respirations Mental status Awake,Calm 12/06/24 13:16 JIG BORE TOOL MAKER.MIRANDAOBTamanna nausea No 12/06/24 13:16 JIG BORE TOOL MAKER.MIRANDAOBTamanna Vomiting No 12/06/24 13:16 JIG BORE TOOL MAKER.BRANDEN Anesthesia Postop Eval I: Fluid Summary Crystalloid volume administer 200 12/06/24 13:16 JIG BORE TOOL MAKER.MIRANDAOBY (ml) Colloids volume administered ( ml) Blood Product volume administered (ml) Total IV fluid infused 200 12/06/24 13:16 JIG BORE TOOL MAKER.BRANDEN Anesthesia Postop Eval I: Summary Notes Anesthesia Complication No 12/06/24 13:16 JIG BORE TOOL MAKER.BRANDEN Anesthesia Complication Comment: Post-operative progress note Anesthesia: Postop Eval II Evaluation Mental status: Awake Pain Level: 0 nausea: No Vomiting: No
== END 2024-12-06 13:47 | disposition home or self-care (01) ==
LOC: SDC 12:03 → AC 12:04
PROVIDERS: Anesthesiology; PCP Family Medicine; Referring Provider Anesthesiology Pain Medicine; Visit Provider Anesthesiology Pain Medicine
PROC: 3E0S3BZ Introduction of Anesthetic Agent into Epidural Space, Percutaneous Approach (ICD-10-PCS; CPT 62282; principal; 2024-12-06 13:35)
DX: M48.07 Spinal stenosis, lumbosacral region (principal); M51.17 Intervertebral disc disorders with radiculopathy, lumbosacral region; K21.9 Gastro-esophageal reflux disease without esophagitis; Z87.19 Personal history of other diseases of the digestive system; Z79.899 Other long term (current) drug therapy; Z87.891 Personal history of nicotine dependence
CPT/HCPCS: 62323; 01992; 64483; 77003; 81025

== ENCOUNTER → 2024-12-29 | Outpatient (CLI) | payer OTHER, SELFPAY | END | disposition home or self-care (01) | LOC: OPBI 15:50 | PROVIDERS: PCP Family Medicine; Referring Provider Nurse Practitioner Women's Health; Visit Provider Nurse Practitioner Women's Health | DX: Z12.31 Encounter for screening mammogram for malignant neoplasm of breast (principal) | CPT/HCPCS: 77063; 77067 ==

== ENCOUNTER 2025-03-07 06:53 | Day surgery (SDC) | payer OTHER, SELFPAY ==
--- OUTSIDE RECORDS SUMMARY | 2025-03-07 06:58 | XMS RPT_ITS | CCD ---
Author Organization [facility] ion [facility] Care Team Providers Care Installations Inspector Name Role Phone Teofilo, Estephania D Unavailable Unavailable [place], Estephania D Unavailable Unavailable [place], Estephania D Unavailable Unavailable [place], Estephania D Unavailable Unavailable Teofilo, Estephania D Unavailable Unavailable [place], Estephania D Unavailable Unavailable Elvia Art Unavailable Unavailable Unavailable Jasen Smart DO Unavailable Ulises Reynoso Unavailable Myrtle PM HEAD COOK, PM HEAD COOK-C Liz Attending Provider ULISES REYNOSO Primary Care Provider Unavailabl e ULISES REYNOSO Referring Provider Unavailable Myrtle PM HEAD COOK, PM HEAD COOK-C Liz Attending Provider ULISES REYNOSO Primary Care Provider Unavailabl e ULISES REYNOSO Referring Provider Unavailable MELIA Bynum Attending Provider [phone] Care Physician, No Primary Primary Care Provider Unavailable Care Physician, No Primary Referring Provider Un available MELIA Bynum Attending Provider Care Physician, No Primary Primary Care Provider Unavailable Care Physician, No Primary Referring Provider Un available Ulises Espinoza Primary Care Provider Care Physician, No Primary Referring Provider Un available Rosaline PM HEAD COOK, PM HEAD COOK-C Kim Sagastume Attending Provider ULISES REYNOSO Primary Care Provider Unavailabl e Teofilo Estephania D Unavailable Elvia Art Unavailable Ulises Reynoso Unavailable Unavailable Colten Taylor Unavailable Unavailable Friend, Dr. Cunningham Attending Provider [phone] Friend, Dr. Cunningham Other Provider ANGELES, ULISES Primary Care Provider ANGELES, ULISES Referring Provider Friend, Dr. Cunningham Attending Provider [phone] Friend, Dr. Cunningham Other Provider ANGELES, ULISES Primary Care Provider ANGELES, ULISES Referring Provider ANGELES, ULISES Primary Care Provider Unavailabl e ANGELES, ULISES Referring Provider Unavailable Care Physician, No Primary Referring Provider Un available Myrtle PM HEAD COOK, PM HEAD COOK-C Liz Attending Provider Friend, Dr. Cunningham Attending Provider [phone] ANGELES, ULISES Primary Care Provider Unavailabl e Dr. Pepe Titus Attending Provider [phone] Dr. Reed Herrera Primary Care Provider Dr. Reed Herrera Referring Provider [phone] Dr. Pepe Titus Referring Provider Dr. Pepe Titus Other Provider SONIA PEREZ Primary Care Provider Sonia Perez MD Primary Care Provider Sonia Perez MD Primary Care Provider Dr. Sonia Perez MD Primary Care Provider Dr. Sonia Perez MD Referring Provider Friend Dr. Octavio SINGH Attending Provider Dr. Octavio Rodríguez DO Referring Provider Myrtle PM HEAD COOK-C, Liz Attending Provider Myrtle PM HEAD COOK-C, Liz Referring Provider Reed Herrera Primary Care Provider Reed Herrera MD Primary Care Provider Sonia Perez MD Primary Care Provider [phone] ASHLYN RM Attending Unavailab le MIRELLAATER, SONIA M Primary Care Unavailable YEATER SONIA M Attending Unavailable YEATER, SONIA M Primary Care Unavailable Greg ATTENDANT HONOR BARSonia Mitesh Primary Care Provider [phone] LEANDRA CLARE Referring Unavailable GREG, SONIA M Primary Care Unavailable Chris MCCABE, Dr. Sonia Sagastume Primary Care Provider Chris MCCABE, Dr. Sonia Sagasutme Referring Provider Assessment, Health Risk Attending Provider Unava ilable Assessment, Health Risk Referring Provider Unava ilable Pinky SINGH, Dr. Rose Emergency Provider Pinky SINGH, Dr. Rose Attending Provider [phone] Mario Bynum Attending Provider Chris MCCABE, Dr. Sonia Sagastume Primary Care Provider [phone] Chris MCCABE, Dr. Sonia Sagastume Referring Provider Kalpesh MCCABE, Dr. Hernandez Attending Provider [phone] Kalpesh MCCABE, Dr. Hernandez Referring Provider LEANDRA CLARE Referring Unavailable GREG, SONIA M Primary Care Unavailable LETICIA AYOUB Attending Unavailable GREG, SONIA M Primary Care Unavailable LETICIA AYOUB Attending Unavailable GREG, SONIA M Primary Care Unavailable LEANDRA, CLARE Admitting Unavailable LEANDRA, CLARE Attending Unavailable GREG, SONIA M Primary Care Unavailable LETICIA AYOUB Attending Unavailable GREG, SONIA M Primary Care Unavailable LETICIA AYOUB Attending Unavailable SIMON, REED L Primary Care Unavailable LEANDRA, CLARE Attending Unavailable SIMON, REED L Primary Care Unavailable Friend, Octavio Attending Unavailable Friend, Octavio Referring Unavailable Yeater, Sonia M Primary Care Unavailable Myrtle PM HEAD COOK, Liz Attending Unavailable Myrtle PM HEAD COOK, Liz Referring Unavailable Yeater, Sonia M Primary Care Unavailable Milton Vance Attending Unavailable Yeater, Sonia M Primary Care Unavailable David Posey Attending Unavailable David Posey Referring Unavailable Yeater, Sonia M Primary Care Unavailable KalpeshDavid Attending Unavailable Kalpesh David Referring Unavailable Yeater, Sonia M Primary Care Unavailable Myrtle PM HEAD COOK, Liz Attending Unavailable Yeater, Sonia M Referring Unavailable Yeater, Sonia M Primary Care Unavailable Mario Bynum Attending Unavailable Yeater, Sonia M Referring Unavailable Yeater, Sonia M Primary Care Unavailable Myrtle PM HEAD COOK, Liz Attending Unavailable Yeater, Sonia M Referring Unavailable Yeater, Sonia M Primary Care Unavailable Yeater, Sonia M Primary Care Unavailable Friend, Octavio Consulting Unavailable Friend, Octavio Attending Unavailable Yeater, Sonia M Referring Unavailable Yeater, Sonia M Primary Care Unavailable Friend, Octavio Attending Unavailable Yeater, Sonia M Referring Unavailable Assessment, Health Risk Attending Unavaila ble Assessment, Health Risk Referring Unavaila ble Yeater, Sonia M Primary Care Unavailable [place] PM HEAD COOK, Liz Attending Unavailable Myrtle PM HEAD COOK, Ilz Referring Unavailable Yeater, Sonia M Primary Care Unavailable Friend, Octavio Attending Unavailable Yeater, Sonia M Primary Care Unavailable Yeater, Sonia M Referring Unavailable Allergies Allergy Classification Reported Allergen(s) Allergy Type Date of Onset Reaction(s) Facility Latex (2 sources) natural latex rubber Substance Allergy 06-25-19 Rash [facility] Work Phone: NITROFURANTOIN, MACROCRYSTALS / Nitrofurantoin, Monohydrate (2 sources) NITROFURANTOIN, MACROCRYSTALS / Nitrofurantoin, Monohydrate; Translations: [Macrobid] Drug Allergy 06-25-19 Nausea Only, Other [facility] Work Phone: Proton Pump Inhibitors (1 source) Esomeprazole Drug Allergy 06-25-19 Diarrhea, Other [facility] (20 sources) Latex; Translations: [Latex] Propensity to adverse reactions to drug (disorder) 04-20-19 05 [facility] Comment on above: Sensitive (1 source) No Known Medication Allergies; Translations: [No Known Medication Allergies] Propensity to adverse reactions to drug (disorder) [facility] (12 sources) NITROFURANTOIN, MACROCRYSTALS / Nitrofurantoin, Monohydrate; Translations: [Macrobid] Drug Allergy 06-25-19 23 Nausea Only, Other [facility] Work Phone: (20 sources) Esomeprazole; Translations: [NexIUM PACK] Drug Allergy 06-25-19 23 Diarrhea, Other [facility] Comment on above: DRY ITCHY SKIN (2 sources) Esomeprazole Drug Allergy 05-31-19 22 dehydrated, Hives [facility] Work Phone: (2 sources) NITROFURANTOIN, MACROCRYSTALS / Nitrofurantoin, Monohydrate Drug Allergy 05-31-19 22 nausea,vomting and diarrhea, Other [facility] Work Phone: (20 sources) Nitrofurantoin Drug Allergy 12-02-19 [address] [facility] (9 sources) oxyCODONE; Translations: [OXYCODONE] Drug Allergy 04-20-19 05 [facility] (2 sources) Esomeprazole; Translations: [ESOMEPRAZOLE] Drug Allergy 06-25-19 23 [facility] Repository (1 source) NITROFURANTOIN MONOHYD/M-CRYST; Translations: [NITROFURANTOIN MONOHYD/M-CRYST] Propensity to adverse reactions to drug (disorder) 06-25-19 [facility] Repository (1 source) Nitrofurantoin Drug Allergy 12-07-[address] [facility] Repository Medications Current Medications Medication Drug Class(es) Dates Sig (Normalized) Sig (Original) Fvzqf-Hlvr-Jctri-Col lag-Mv-Min (Angel (With Collagen)) 7-7-1.5 gram Powder In Packet (20 sources) Start: 09-28-2020 Ghuam-Exgu-Fcoop-Co llag-Mv-Min (Angel (With Collagen)) 7-7-1.5 gram Powder In Packet Active 1 EACH PO DAILY September 28, 2020 10:55am Start: 09-28-2020 End: 09-06-2022 Hwsnn-Vvrg-Ehfue-Collag-Mv-M in (Angel (With Collagen)) 7-7-1.5 gram Powder In Packet Discontinued 1 NMA PO DAILY September 28, 2020 12:00am September 06, 2022 4:20pm Start: 09-28-2020 End: 09-06-2022 Enesc-Kdjq-Lgrkk-Collag-Mv-M in (Angel (With Collagen)) 7-7-1.5 gram Powder In Packet Discontinued 1 EACH PO DAILY September 27, 2020 11:00pm September 06, 2022 3:20pm Start: 09-28-2020 End: 09-06-2022 Emxty-Hvhx-Fdsat-Collag-Mv-M in (Angel (With Collagen)) 7-7-1.5 gram Powder In Packet Discontinued 1 EACH PO DAILY September 28, 2020 12:00am September 06, 2022 4:20pm Start: 09-28-2020 Bpwqz-Hpik-Goj hc-Wftrkx-Ma-Min (Angel (With Collagen)) 7-7-1.5 gram Powder In Packet Active 1 EACH PO DAILY September 27, 2020 11:00pm Start: 09-28-2020 Tympm-Zgie-Xrq vv-Biprtb-Wz-Min (Angel (With Collagen)) 7-7-1.5 gram Powder In Packet Active 1 EACH PO DAILY September 28, 2020 12:00am bifidobacterium animalis [id number] unt / lactobacillus acidophilus [id number] unt oral capsule (9 sources) End: 06-25-2022 [...] plenty of water. Ethinyl Estradiol / Levonorgestrel (6 sources) Progestin, Estrogen, Progestin-containi ng Intrauterine Device [...] lactobacillus acidophilus 1. 5 mg oral capsule (12 sources) Start: 12-23-2022 Lactobacillus Acidophilus (Probiotic Acidophilus) 250 million cell capsule Active 500 NMA PO DAILY December 23, 2022 12:00am take 1 capsule by mouth once jazmine ly Probiotic 1 capsule by mouth once a day lactobacillus acidophilus Loni Geronimo LPN Magnesium (1 source) Start: 12-02-2024 take 1 tablet by mouth at bedtime Magnesium 250 mg tablet Active 250 mg PO AT BEDTIME December 02, 2024 12:00am multivit-min/ferrous fumarate (MULTI VITAMIN ORAL) (6 sources) multivit-min/yudelka letitia [...] tablet by mouth once a day multivitamin [id number] Loni Geronimo LPN Multivitamin tablet (5 sources) Start: 10-24-2020 Multivitamin tablet Active 1 {tbl} PO DAILY October 24, 2020 12:00am naproxen 500 mg oral tablet (10 sources) Nonsteroidal Anti-inflammatory Drug Start: 01-30-2021 End: 10-29-2022 take 1 tablet by mouth every twelve hours naproxen (Naprosyn) 500 mg tablet Take 1 tablet (500 mg) by mouth every 12 hours if needed. 0 01/30/2021 10/29/2022 Discontinued (Other) pantoprazole 20 mg delayed release oral tablet (20 sources) Proton Pump Inhibitor Start: 08-28-2023 End: 10-27-2023 take 1 tablet by mouth once daily pantoprazole (ProtoNix) 40 mg EC tablet Indications: Gastroesophageal reflux disease without esophagitis Take 1 tablet (40 mg) by mouth once daily. Do not crush, chew, or split. 08/28/2023 Active Start: 12-26-2022 End: 11-01-2024 take 1 tablet by mouth every twelve hours Pantoprazole 20 mg tablet,delayed release (DR/EC) Active 20 mg PO Q12H 60 3 November 01, 2024 8:17am take 1 tablet by alejandra th twice daily pantoprazole DR (PROTONIX) 20 mg tablet Take 20 mg by mouth two times a day. Active psyllium 400 mg oral capsule (10 sources) Start: 07-02-2023 Psyllium Husk (Daily Fiber) 0.4 gram capsule Active 0.8 g PO DAILY July 02, 2023 12:00am End: 08-30-2024 take 5 capsules by mouth four times daily psyllium (Metamucil) 0.4 gram capsule Take 5 capsules by mouth 4 times a day. 08/30/2024 Discontinued (Med List Cleanup) WHEAT DEXTRIN (3 sources) take 1 tablet by alejandra th once daily wheat dextrin (BENEFIBER HEALTHY SHAPE ORAL) Take 1 tablet by mouth once daily. Active Completed/Discontinued Medications Medication Drug Class(es) Dates Sig (Normalized) Sig (Original) acetaminophen 325 mg / HYDROcodone bitartrate 5 mg oral tablet (6 sources) Opioid Agonist Start: 07-14-2023 End: 02-25-2024 [...] 14, 2023 azithromycin 250 mg oral tablet (20 sources) Macrolide Antimicrobial Start: 03-18-2021 End: 01-22-2022 [...] 2-5) PO cefdinir 300 mg oral capsule (5 sources) Cephalosporin Antibacterial Start: 10-12-2024 End: 10-21-2024 take 1 capsule by mouth every twelve hours Cefdinir 300 mg capsule Discontinued 300 mg PO Q12H 14 0 October 12, 2024 12:00am October 21, 2024 3:38pm Cholestyramine Resin (5 sources) Bile Acid Sequestrant Start: 07-18-2023 End: [...] 31-Oct-2020 Active ibuprofen 600 mg oral tablet (20 sources) Nonsteroidal Anti-inflammatory Drug Start: 02-08-2020 End: 02-23-2020 take 1 tablet by mouth every six hours as needed for pain Ibuprofen 600 MG tablet Discontinued 600 mg PO EVERY 6 HOURS NEEDED as needed for Pain 30 0 February 08, 2020 1:00am February 23, 2020 12:48pm L.Acidoph,Parac asei,B.Animalis 1 EACH capsule (5 sources) Start: 03-25-2019 End: 09-06-2022 take 1 [...] 2022 4:20pm linaclotide 0.072 mg oral capsule (10 sources) Guanylate Cyclase-C Agonist Start: 01-20-2023 End: 02-25-2024 take 1 capsule by mouth once daily in the morning Linaclotide (Linzess) 72 mcg capsule Discontinued 72 ug PO EVERY MORNING 30 3 January 20, 2023 12:00am February 25, 2024 1:23pm methylPREDNISolone 4 mg oral tablet (20 sources) Corticosteroid Start: 10-21-2024 End: 10-27-2024 take 1 tablet by mouth once Methylprednisolone (Medrol (Emir)) 4 mg tablets,dose pack Discontinued 4 mg PO per package directions 6 0 October 21, 2024 12:00am October 26, 2024 12:00am October 27, 2024 12:07am Start: 05-03-2022 End: 05-09-2022 take 1 tablet by mouth once Methylprednisolone (Medrol (Emir)) 4 mg tablets,dose pack Discontinued 4 mg PO per package directions 21 6 0 May 03, 2022 1:00am May 08, 2022 1:00am May 09, 2022 1:04am metroNIDAZOLE 500 mg oral tablet (7 sources) Nitroimidazole Antimicrobial Start: 10-12-2024 End: 10-21-2024 [...] 0 Refills: 0 Ordered: 31-Oct-2020 DO Active Mupirocin (3 sources) RNA Synthetase Inhibitor Antibacterial Start: 10-21-2024 End: 12-02-2024 Mupirocin (Centany) 2 % ointment Discontinued 1 NMA TOPICAL THREE TIMES A DAY October 21, 2024 12:00am December 02, 2024 9:52am Start: 10-21-2024 Mupirocin (Julee theodora) 2 % ointment Active 1 NMA TOPICAL THREE TIMES A DAY October 21, 2024 12:00am nitrofurantoin, macrocrystals 25 mg / nitrofurantoin, monohydrate 75 mg oral capsule (20 sources) Nitrofuran Antibacterial Start: 10-13-2019 End: 10-19-2019 take 1 capsule by mouth twice daily at mealtime Nitrofurantoin Monohyd/M-Cryst (Macrobid) 100 mg capsule Discontinued 100 mg PO TWICE A DAY 14 7 0 October 13, 2019 4:09pm October 19, 2019 12:00am October 19, 2019 11:11am must administer with a meal/food omeprazole 40 mg delayed release oral capsule (20 sources) Proton Pump Inhibitor Start: 12-01-2020 End: 12-07-2020 take 1 capsule by mouth once daily Omeprazole 40 mg capsule,delayed release(DR/EC) Discontinued 40 mg PO DAILY 90 1 December 01, 2020 12:00am December 07, 2020 3:42pm saccharomyces boulardii 250 mg oral capsule (4 sources) End: 08-30-2024 take 1 capsule by mouth twice daily saccharomyces boulardii (Florastor) 250 mg capsule Take 1 capsule (250 mg) by mouth 2 times a day. 08/30/2024 Discontinued (Med List Cleanup) sulfamethoxazole 800 mg / trimethoprim 160 mg oral tablet (20 sources) Dihydrofolate Reductase Inhibitor Antibacterial, Sulfonamide Antimicrobial Start: 10-13-2019 End: 10-19-2019 Sulfamethoxazole-Tr imethoprim (Bactrim Ds) 800-160 mg tablet Discontinued 1 {tbl} PO TWICE A DAY 10 0 October 13, 2019 12:00am October 19, 2019 11:11am traMADol hydrochloride 50 mg oral tablet (6 sources) Opioid Agonist Start: 10-08-2024 End: 12-02-2024 take 1 tablet by mouth every six hours as needed for pain Tramadol 50 mg tablet Discontinued 50 mg PO EVERY 6 HOURS NEEDED as needed for pain October 12, 2024 12:00am December 02, 2024 9:52am valACYclovir 1000 mg oral tablet (3 sources) Herpesvirus Nucleoside Analog DNA Polymerase Inhibitor, Herpes Simplex Virus Nucleoside Analog DNA Polymerase Inhibitor, Herpes Zoster Virus Nucleoside Analog DNA Polymerase Inhibitor Start: 10-21-2024 End: 10-28-2024 Valacyclovir 1 gram tablet Discontinued 1000 mg PO Q8H 21 7 0 October 21, 2024 12:00am October 27, 2024 12:00am October 28, 2024 12:08am Problems Active Problems Problem Classification Problem Date Documented Da te Episodic/Chronic Abdominal pain (3 sources) Epigastric pain; Translations: [Epigastric pain] 06-25-2022 Episodic Anxiety disorders (16 sources) Acute stress disorder; Translations: [Other acute reactions to stress] Onset: 3 06-24-2022 Chronic Biliary tract disease (9 sources) Calculus of gallbladder with cholecystitis; Translations: [Calculus of gallbladder with chronic cholecystitis without obstruction] 05-30-2023 Episodic Esophageal disorders (20 sources) Gastroesophageal reflux disease without esophagitis; Translations: [Gastro-esophageal reflux disease without esophagitis] Onset: 5 06-25-2022 Chronic Genitourinary symptoms and ill-defined conditions (14 sources) Urinary frequency; Translations: [Blood in urine] Onset: 5 12-10-2022 Episodic Comment on above: URINARY FREQUENCY Intestinal obstruction without hernia (8 sources) Impaction of intestine; Translations: [Other impaction of intestine] Onset: 5 07-20-2024 Episodic Miscellaneous mental health disorders (3 sources) Hypoactive [...] on the digestive system] 10-13-2024 Episodic Other connective tissue disease (20 sources) Pain in lower limb; Translations: [Pain in leg, unspecified] 10-02-2020 Episodic Other connective tissue disease (20 sources) Swelling of lower limb; Translations: [Other specified soft tissue disorders] 03-24-2019 Episodic Other connective tissue disease (1 source) Other specified disorders of muscle; Translations: [Pelvic floor dysfunction in female] Onset: 5 Episodic Other diseases of veins and lymphatics (20 sources) Peripheral venous insufficiency; Translations: [Venous insufficiency (chronic) (peripheral)] 03-24-2019 Episodic Other female genital disorders (20 sources) Abnormal uterine bleeding; Translations: [Abnormal uterine and vaginal bleeding, unspecified] 02-08-2020 Chronic Other gastrointestinal disorders (20 sources) Swallowing painful; Translations: [Dysphagia, unspecified] 11-21-2020 Episodic Other gastrointestinal disorders (15 sources) Dysphagia; Translations: [Dysphagia, unspecified] 09-06-2022 Episodic Other gastrointestinal disorders (17 sources) Constipation; Translations: [Constipation, unspecified] 09-06-2022 Episodic Other gastrointestinal disorders (8 sources) Constipation, unspecified; Translations: [Constipation, unspecified] Onset: 5 09-06-2022 Episodic Other gastrointestinal disorders (7 sources) Dysphagia, unspecified; Translations: [Dysphagia, unspecified] 09-06-2022 Episodic Other gastrointestinal disorders (5 sources) Diarrhea; Translations: [Diarrhea, unspecified] 12-25-2023 Episodic Other infections; including parasitic (1 source) Personal history of other infectious and parasitic diseases; Translations: [History of herpes zoster] Onset: 5 Episodic Other nervous system disorders (1 source) Chronic low back pain; Translations: [Other chronic pain] 08-30-2024 Chronic Other nervous system disorders (2 sources) Other chronic pain; Translations: [Other chronic pain] Onset: 3 Chronic Other screening for suspected conditions (not mental disorders or infectious disease) (19 sources) Bone finding; Translations: [Nonspecific (abnormal) findings on radiological and other examination of musculoskeletal system] Onset: 3 06-24-2022 Episodic Other skin disorders (1 source) Disorder of skin; Translations: [Disorder of the skin and subcutaneous tissue, unspecified] 10-29-2022 Episodic Other upper respiratory infections (16 sources) Acute sinusitis; Translations: [Acute sinusitis, unspecified] 03-18-2021 Episodic Peripheral and visceral atherosclerosis (7 sources) Ischemic colitis; Translations: [Vascular disorder of intestine, unspecified] Onset: 5 03-10-2024 Chronic Prolapse of female genital organs (20 sources) Disorder of rectum; Translations: [Rectocele] 10-24-2020 Chronic Residual codes; unclassified (15 sources) Early satiety; Translations: [Early satiety] 09-06-2022 Episodic Residual codes; unclassified (5 sources) Early satiety; Translations: [Early satiety] 09-06-2022 Episodic Residual codes; unclassified (8 sources) Flushing; Translations: [Flushing] 06-30-2024 Episodic Residual codes; unclassified (2 sources) Other specified postprocedural states; Translations: [Post-operative nausea and vomiting] Onset: 5 Episodic Spondylosis; intervertebral disc disorders; other back problems (1 source) Postlaminectomy syndrome, not elsewhere classified; Translations: [Postlaminectomy syndrome, not elsewhere classified] Onset: 5 Chronic Spondylosis; intervertebral disc disorders; other back problems (19 sources) Low back pain; Translations: [Lumbago] Onset: 3 06-24-2022 Episodic Sprains and strains (20 sources) Strain of tendon of lower back; Translations: [Strain of muscle, fascia and tendon of lower back, initial encounter] 04-23-2022 Episodic Unclassified (1 source) Low back pain, unspecified; Translations: [Low back pain, unspecified] Onset: 5 Varicose veins of lower extremity (20 sources) Varicose veins of lower extremity; Translations: [Asymptomatic varicose veins] Onset: 3 03-24-2019 Episodic Viral infection (4 sources) Herpes zoster; Translations: [Zoster without complications] 10-22-2024 Episodic Past or Other Problems Problem Classification Problem Date Documented Da te Episodic/Chronic Anal and rectal conditions (20 sources) Rectal prolapse; Translations: [Rectal prolapse] Onset: 05-18-2004 03-10-2024 Episodic Complications of surgical procedures or medical care (2 sources) Postprocedural infection; Translations: [Infection following a procedure, unspecified, initial encounter] Onset: 10-13-2024 10-13-2024 Episodic Diseases of mouth; excluding dental (4 sources) Lesion of tongue; Translations: [Other diseases of tongue] Onset: 03-12-2024 03-12-2024 Episodic Other aftercare (1 source) Encounter for surgical aftercare following surgery on the digestive system; Translations: [Encounter for surgical aftercare following surgery on the digestive system] Onset: 10-13-2024 Episodic Other disorders of stomach and duodenum (15 sources) Indigestion; Translations: [Dyspepsia and other specified disorders of function of stomach] Onset: 06-24-2022 06-25-2022 Episodic Other gastrointestinal disorders (1 source) Other constipation; Translations: [Other constipation] Onset: 08-10-2024 Episodic Other gastrointestinal disorders (1 source) Full incontinence of feces; Translations: [Full incontinence of feces] Onset: 08-10-2024 Episodic Other gastrointestinal disorders (1 source) Diarrhea, unspecified; Translations: [Diarrhea, unspecified] Onset: 04-03-2024 Episodic Other nervous system disorders (3 sources) Other acute postprocedural pain; Translations: [Other acute postoperative pain] Onset: 10-08-2024 Episodic Residual codes; unclassified (1 source) Flushing; Translations: [Flushing] Onset: 07-05-2024 Episodic Unclassified (1 source) Problem Unclassified (20 sources) 4th degree tear in 10-22-2021 Unclassified (20 sources) sphincterplasty 10-22-2021 Comment on above: colorectal surgery 2 005 Unclassified (20 sources) vericose vein surgery 10-22-2021 Results Test Name Value Interpretation Reference Range Facility [facility] 01-14-2025 OV Office Visit (FRANCY ) -------- LAISHA ROMERO ([id number]) 1980 F Date Time Provider Department 01/14/25 3:00 PM LETICIA AYOUB During your visit today, we recorded the following information about you: Weight Height 67.7 kg 1.676 m Leticia Ayoub APRN.[facility] 01/23/2025 2:52 PM Signed COLORECTAL SURGERY Follow-up January 14, 2025 Recording using [employer] software for draft documentation of the visit was discussed with the patient/authorized inside technical sales representative; all questions welcomed and answered. Patient/authorized inside technical sales representative agreed to proceed Chief complaint: Post surgical visit HPI: The patient is a 44-year-old female presenting for follow-up of chronic constipation and pelvic floor dysfunction following exam under anesthesia and mucopexy with Dr. Mobley on 10/08/24 for prior rectal prolapse repair. She reports persistent difficulty with bowel movements, characterized by hard stools, difficulty initiating defecation, and a sensation of incomplete evacuation. She often feels unable to defecate until the urge is very strong, and sometimes needs to return to the toilet multiple times to achieve a sense of emptying. She takes magnesium glycinate at night, which has improved her constipation, and also takes fiber tablets. She reports good water intake and does not drink soda. She has not started pelvic floor physical therapy due to lack of local providers and cost barriers, but is interested in self-directed pelvic floor exercises. She underwent rectal prolapse repair in 2022, which improved her rectal closure and eliminated prior issues with mucus leakage and incontinence. She notes that the repair improved the appearance of the perineal area and provided better separation between the anus and vagina. However, she continues to experience functional difficulties with bowel movements and wishes she had pursued surgical repair earlier. Her history is notable for a traumatic episiotomy during her first childbirth at age 17, which resulted in a rectal sphincter defect that was not repaired at the time. She later underwent surgical repair in 2004, which provided some improvement but did not fully restore sphincter function. She has a history of recurrent UTIs and underwent cholecystectomy in 2023. Water intake is good. Gastrointestinal: (+) constipation, (+) difficulty initiating defecation, (+) sensation of incomplete evacuation, (-) diarrhea, (-) rectal mucus discharge, (-) fecal incontinence Musculoskeletal: (-) muscle spasms Physical Exam: Ht 167.6 cm (5' 6) Wt 67.7 kg (149 lb 4 oz) LMP 09/21/2024 (Exact Date) BMI 24.09 kg/m? General: awake, alert, no acute distress Abdominal: Soft, non-tender Anorectal: Perianal skin is intact. No erythema, tenderness, induration, or excoriation. No fissure, fistula, or external hemorrhoids. Asymmetry with bulking on the right side is noted. Digital Rectal Exam: - Anus: closed - Resting tone: Elevated with spasm noted - Squeeze tone: Normal - Process Engineering Manager Present: Yes Process Engineering Manager present: Yes, Laura Katz Assessment Medical Decision Making: Assessment AND Diagnosis: Laisha Romero is a 44 year old female with chronic constipation and pelvic floor dysfunction following exam under anesthesia and mucopexy with Dr. Mobley on 10/08/24 for prior rectal prolapse repair. Data Reviewed: Tests AND Documents Reviewed/ordered: Review of prior notes from anorectal manometery and OR note. I have discussed Laisha Romero's treatment plan and/or results with pt. Treatment plan: 1. Constipation, unspecified constipation type (K59.00) 2. Pelvic floor dysfunction in female (M62.89) 3. Obstructive defecation (HCC) (K56.41) Chronic constipation and obstructive defecation with persistent difficulty initiating and completing bowel movements, despite some improvement with magnesium glycinate and fiber supplementation. Exam findings consistent with pelvic floor dysfunction. - Continue magnesium glycinate at bedtime and fiber supplementation. - Provided education on pelvic floor strengthening exercises and Kegels; recommended online resources (pelvicrehab.com, pelvicguru.com, womenshealthapta.org, and The Vagina Prepress Operator). - Advised to avoid heavy lifting and continue adequate hydration. - Encouraged to seek pelvic floor physical therapy if local options become available. 4. History of surgical procedure (Z98.890) Status post pelvic floor repair with improved continence and aesthetics, but persistent functional issues. - Continue current management and monitor for further changes. 5. History of herpes zoster (Z86.19) Prior episode of herpes zoster with facial rash, now resolved with residual scarring. - No further intervention required at this time. Risk of morbidity, mortality and/or complications of treatment plan: low CH (more content not included)... Normal [facility] SCRN MAMM (CAD)W/PORSCHEJonathan Kwan n 12-29-2024 SCRN MAMM (CAD)W/PORSCHE TRISTANAT [facility] Imaging Services [address] [place], [place] [id number] SCRN MAMM (CAD)W/PORSCHEJonathan BIGGS MR#: [id number] Acct: [id number] Name: LAISHA ROMERO ANGEL LUIS Rep #: [id number] : 1980 F 44 From: Marek clark MD PCP: Dr. Sonia Perez MD Status: REG CLI Study: SCRN MAMM (CAD)W/PORSCHE BILAT Date of Exam: 11/15 Exam# [id number] Ordering Dr: Liz Iraheta NP PM HEAD COOK -C EXAM: SCRN MAMM (CAD)W/PORSCHE BILAT DATE: 12/29/2024 CLINICAL HISTORY: F, Age 44 y/o , BREAST CANCER SCREENING No family history. TECHNIQUE: Procedure Code: BISMWCADBTOM Modality: MG Procedure: SCRN MAMM (CAD)W/PORSCHE BILAT COMPARISON: Prior exam(s) dated December 17, 2023.. FINDINGS: TISSUE DENSITY: The breasts are extremely dense, which lowers the sensitivity of mammography. Bilateral Breast Mammographic Findings: No significant masses, calcifications or other abnormalities are identified. Stable 7 mm well- defined nodule in the central upper aspect of the right breast. This was demonstrated to be a cyst on prior study. No suspicious masses, areas of developing architectural distortion, or suspicious calcifications. There has been no significant interval change. BI/SCRN MAMM (CAD)W/PORSCHE BILAT IMPRESSION: Stable bilateral screening mammogram. OVERALL FINAL ASSESSMENT BI-RADS 2: BENIGN RECOMMENDATION: Routine annual follow-up in 1 Year Additional Recommendation none A letter with findings and recommendations will be mailed to the patient. [facility] CC: JAXSON Iraheta; Dr. Sonia Perez MD Photogrammetry Airplane Pilot: Signed Normal [facility] Fluor Guidance for Spine Inj on 12-06-2024 Fluor Guidance for Spine Inj [facility] Imaging Services [address] [place] [address] Fluor Guidance for Spine Inj MR#: [id number] Acct: [id number] Name: LAISHA ROMERO ANGEL LUIS Rep #: [id number] : 1980 F 44 From: Marek clark MD PCP: Dr. Sonia Perez MD Status: [facility] Study: Fluor Guidance for Spine Inj Date of Exam: Exam# [id number] Ordering Dr: David Posey MD PROCEDURE: FLUOR GUIDANCE FOR SPINE INJ 12/06/2024 REASON FOR EXAM: CAUDAL BLOCK TECHNIQUE: Procedure Code: RADSPN Modality: DX Procedure: FLUOR GUIDANCE FOR SPINE INJ Radiation dose: 4.8 seconds of fluoroscopy. 3.28 mGy. 1 image was submitted. COMPARISON: None FINDINGS: Intraoperative fluoroscopic services provided for caudal block. RAD/Fluor Guidance for Spine Inj IMPRESSION: Intraoperative fluoroscopic services provided for caudal block. Reading Location: [place] [address] CC: Dr. David Posey MD; Dr. Sonia Perez MD Photogrammetry Airplane Pilot: Signed [facility] MR/POSTOP.[facility] 12-06-2024 MR/POSTOP.[facility] Medical Records Department [address] [place] [address] Anesthesia Postop Eval I 12/06/24 1316 MR#: [id number] Acct: [id number] Name: LAISHA ROMERO Rep #: [id number] : 1980 44 From: Lis Timmons CRNA PCP: Dr. Sonia Perez MD Status:[facility] Y Race: C Location: [place] [address] Anesthesia: Postop Eval I Current Vital Signs Temperature: 97.4 F Pulse Rate: 78 Blood Pressure: 103/67 Respiratory Rate: 16 Pulse Ox: 100 Oxygen Delivery Method: Room Air Assessment Airway patent: Yes Spontaneous unlabored respirations: Yes Mental status: Awake and Calm nausea: No Vomiting: No Anesthesia Complication: No Fluid Hydration Crystalloid volume administer (ml): 200 Total IV fluid infused: 200 Progress Note Anesthesia document: Postop Eval 1 completed: Yes 12/06/24 1316 Date Lis Iain PACKAGING MACHINE OPERATOR Cosigner Signature: Date CC: Signed Normal [facility] MR/[id number] 12-06-2024 MR/POSTOPAN2 [facility] Medical Records Department [address] [place] [address] Anesthesia Postop Eval II 12/06/24 1411 MR#: [id number] Acct: [id number] Name: LAISHA ROMERO ANGEL LUIS Rep #: [id number] : 1980 44 From: Yousif Caban MD PCP: Dr. Sonia Perez MD Status:[facility] Y Race: C Location: [place] Anesthesia Postop Eval I Sum Postop Eval Completion status Anesthesia document: Postop Eval 1 completed: Yes Anesthesia Postop Eval I Summary Anesthesia Postop Eval I Summary: Anesthesia Postop Eval I: Assessment Summary Airway patent Yes 12/06/24 13:16 PACKAGING MACHINE OPERATOR.SKOBY Spontaneous unlabored Yes 12/06/24 13:16 PACKAGING MACHINE OPERATOR.SKOBY respirations Mental status Awake,Calm 12/06/24 13:16 PACKAGING MACHINE OPERATOR.SKOBY nausea No 12/06/24 13:16 PACKAGING MACHINE OPERATOR.SKOBY Vomiting No 12/06/24 13:16 PACKAGING MACHINE OPERATOR.SKOBY Anesthesia Postop Eval I: Fluid Summary Crystalloid volume administer 200 12/06/24 13:16 PACKAGING MACHINE OPERATOR.SKOBY (ml) Colloids volume administered ( ml) Blood Product volume administered (ml) Total IV fluid infused 200 12/06/24 13:16 PACKAGING MACHINE OPERATOR.SKOBY Anesthesia Postop Eval I: Summary Notes Anesthesia Complication No 12/06/24 13:16 PACKAGING MACHINE OPERATOR.SKOBY Anesthesia Complication Comment: Post-operative progress note Anesthesia: Postop Eval II Evaluation Mental status: Awake Pain Level: 0 nausea: No Vomiting: No 12/06/24 1411 Date Yousif Newtonignmala Signature: Date CC: Signed Normal [facility] Operative Reporton 5 Operative Report [facility] Medical Records Department [address] [place] [address] Operative Report 12/06/24 1310 MR#: [id number] Acct: [id number] Name: LAISHA ROMERO Rep #: [id number] : 1980 44 From: David Posey MD PCP: Dr. Sonia Perez MD Status:[facility] Location: [place] [address] Operative Report (Standard) Operative Information Date of Procedure: 12/06/24 Pre-Operative Diagnosis: Lumbosacral radiculopathy, lumbosacral degenerative disc disease, lumbosacral spinal stenosis Post-Operative Diagnosis: Lumbosacral radiculopathy, lumbosacral degenerative disc disease, lumbosacral spinal stenosis Surgery/Procedure Performed: Diagnostic/therapeutic caudal epidural steroid injection under fluoroscopic guidance promotions executive: No Type of Anesthesia: Local MAC RN Documented Start/Stop Times: Operation Date: 12/06/24 13:40 Case Time Into Pre-Op 12/06/24 12:14 Out of Pre-Op 12/06/24 12:51 Anesthesia Start 12/06/24 13:05 Into Room 12/06/24 13:05 Procedure Start 12/06/24 13:08 Procedure Start Time: 13:11 Procedure Stop Time: 13:12 Select all DRAINS/GRAFTS/IMPLANTS that apply: None Estimated Blood Loss: 0 Specimen collected: No Description of surgery: ANESTHESIA: MAC. BLOOD LOSS: Minimal. COMPLICATIONS: None. DESCRIPTION OF PROCEDURE: History and physical of today was reviewed. Risks and benefits of the procedure were explained. The patient understood and agreed to proceed. Informed consent was obtained. IV inserted per routine protocol. The patient was taken to the operating room and placed in the prone position with a pillow positioned underneath the abdomen. The lower back and tailbone area was prepped and draped in a sterile fashion using iodine x3. Under fluoroscopy guidance on a lateral view, the caudal space was identified. The skin and subcutaneous tissue was anesthetized with approximately 3 mL of 1% lidocaine using a 25-gauge regular needle. Under direct visualization with fluoroscopy, using a 22-gauge 3-1/2-inch spinal needle, the needle was advanced via the skin through the sacral hiatus. The tip of the needle was passed through the sacrococcygeal ligament and advanced to approximately S4 area. After negative aspiration of blood or CSF, a total of 3 mL of contrast was injected to confirm correct placement of the needle as well as cephalad spread. The spread was followed to approximately L5 area. After confirmation on AP as well as lateral view and repeated negative aspiration, a total of 15 mL of preservative-free 0.125% Marcaine with 80 mg of Depo-Medrol was injected easily. The needle was then removed intact. The patient experienced no sign or symptoms of intrathecal or intravascular injection. The patient experienced no paresthesia. The procedure was completed without any apparent difficulty or any complications. The patient appeared to tolerate it well. ASSESSMENT AND PLAN: This is a 44-year-old female with Lumbosacral radiculopathy, lumbosacral spinal stenosis, lumbosacral degenerative disc disease, status post diagnostic/therapeutic caudal epidural steroid injection under fluoroscopic guidance, patient will continue her current medications, patient will follow-up in approximately 2 weeks for reevaluation. Surgical Findings: none Complications Complications: No Admit VTE Documentation VTE Present on Admission: No VTE Mechan Device Prophylaxis: None VTE Pharm Prophylaxis ordered?: No 12/06/24 1312 Cosigner Signature (if applicable): CC: Dr. David Posey MD; Dr. Sonia Perez MD Signed Normal [facility] ,Urineon 12-06-2024 Beta HCG ( test) Ql (U) Negative Normal [facility] Comment on above: Result Comment: Very dilute urine specimens, as indicated by a low specific gravity, may not contain inside technical sales representative levels of hCG. If is still suspected, a first morning urine specimen should be collected 48 hours later and tested. Performed By: #### L 400.7600 #### [facility] Laboratory [address] [place], [address] Urine testOrdered By: Anibal Meadows on 12-06-2024 HCG ( test) Ql (U) Negative [facility] Comment on above: Very dilute urine sp ecimens, as indicated by a low specificgravity, may not contain inside technical sales representative levels of hCG. If is still suspected, a first morning urinespecimen should be collected 48 hours later and tested. L/S Spine Comp/w Bending Vie wson 10-25-2024 L/S Spine Comp/w Bending Views [facility] Imaging Services [address] [place], [place] [address] L/S Spine Comp/w Bending Views MR#: [id number] Acct: [id number] Name: LAISHA ROMERO Rep #: [id number] : 1980 F 44 From: Nael Kennedy PCP: Dr. Sonia Perez MD Status: REG CLI Study: L/S Spine Comp/w Bending Views Date of Exam: 0 10/25/24 Exam# [id number] Ordering Dr: David Posey MD PROCEDURE: L/S SPINE COMP/W BENDING VIEWS 10/25/2024 REASON FOR EXAM: POSTLAMINECTOMY SYNDROME, NOT ELSEWHERE CLASSIFIED TECHNIQUE: 6 view lumbar spine series including lateral flexion and extension and bilateral oblique views Again seen is bilateral L5 spondylolysis, with stable grade 2 anterolisthesis of L5 upon S1. No significant dynamic instability is seen on lateral flexion and extension views. Mild degenerative changes of the lumbar spine are noted, with probable mild L4-L5 disc narrowing. Lower lumbar posterior facet hypertrophy is also noted. Minimal sacroiliac joint degenerative changes are also seen. COMPARISON: CT examination of 06/20/2022. RAD/L/S Spine Comp/w Bending Views IMPRESSION: Interbody cage with screws at the L5-S1 level noted, alignment unchanged. Interval removal of posterior fixation device and bilateral pedicle screws. Reading Location: [place] [address] CC: Dr. David Posey MD; Dr. Sonia Perez MD Photogrammetry Airplane Pilot: Signed Normal [facility] Urgent Care Visit Reporton 0 10-21-2024 Urgent Care Visit Report [facility] [address], [address] [place] [address] OFFICE VISIT Date of Service: 10/21/24 MR#: [id number] Acct: [id number] Name: LAISHA ROMERO Rep #: [id number] : 1980 Provider: MELIA Miller Age/Sex: 44/F Location: [facility] Status: Signed Intake Vital Signs 10/12/24 08:39 10/21/24 15:35 Height 5 ft 6 in BP 136/76 H Blood Pressure Location Rt brachial Position Sitting Respiration 17 Pulse 85 Pulse Source NIBP Temp 98.5 F Temp Source Oral Pulse Oximetry (%) 98 Oxygen Delivery Method room air Intake Visit Reasons: RASH UNDER NOSE Chief Complaint: nasal lesion Marketing Data Specialist Required: No Is patient in pain?: Yes [...] complete, still using metronidazole cream as directed. 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 [facility] Office Visit (FRANCY ) -------- LAISHA ROMERO ([id number]) 1980 F Date Time Provider Department 10/13/24 11:30 AM LETICIA AYOUB During your visit today, we recorded the following information about you: Weight Height 67.6 kg 1.676 m Leticia Ayoub APRN.[facility] 10/13/2024 3:01 PM Signed [facility] [...] has improved with treatment. She lives in [place], approximately an hour [place] half away, [...] and non-ten (more content not included)... Normal [facility] Absolute lymphocyte countOrd ered By: Milton Vance on 10-12-2024 Lymphocytes Auto (Unsp spec) [#/Vol] 1.88 10*3/uL 0.83-4.[address] [facility] Absolute neutrophil countOrd ered By: Milton Vance on 10-12-2024 Neutrophils (Bld) [#/Vol] 6.4 10*3/uL 2.0-7.[address] [facility] Anion gap in Serum or Plasma Ordered By: Milton Vance on 10-12-2024 Anion gap [Moles/Vol] 12 mmol/L 5-15 [facility] Automated lymphocyte count a s percentage of total leukocytesOrdered By: Milton Vance on 10-12-2024 Lymphocytes/100 WBC Auto (Unsp spec) 20.9 % 19-[address] [facility] BUN/creatinine ratioOrdered By: Milton Vance on 10-12-2024 Urea nitrogen/Creatinine [Mass ratio] 9.9 mg/mg Low 10-[address] [facility] Basic Metabolic Profile (BMP )on 10-12-2024 BUN/CRE 9.9 RATIO Low 10-[address] [facility] Comment on above: Performed By: #### L 100.0100, L500.2500 ####[facility] [address] [place], [address] Calcium [Mass/Vol] 9.9 mg/dL Normal 7.6-11.0 [facility] Comment on above: Performed By: #### L 100.0100, L500.2500 ####[facility] [address] [place], [address] Chloride [Moles/Vol] 101 mmol/L Normal 98-108 [facility] Comment on above: Performed By: #### L 100.0100, L500.2500 ####[facility] [address] [place], [address] CO2 [Moles/Vol] 23.2 mmol/L Normal 21.0-32.[address] [facility] Comment on above: Performed By: #### L 100.0100, L500.2500 ####[facility] [address] [place], [address] Creatinine [Mass/Vol] 0.78 mg/dL Normal 0.70-1.20 [facility] Comment on above: Performed By: #### L 100.0100, L500.2500 ####[facility] [address] [place], [address] ECRCL 85.26 ml/min Normal 50-[address] [facility] Comment on above: Performed By: #### L 100.0100, L500.2500 ####[facility] [address] [place], [address] GAP 12 Normal 5-[address] [facility] Comment on above: Performed By: #### L 100.0100, L500.2500 ####[facility] [address] [place], [address] GFR/1.73 sq M.predicted among non-blacks MDRD (S/P/Bld) [Vol rate/Area] 96 mL/min/{1.73_m2} Normal >[address] [facility] Comment on above: Result Comment: mL/m in/1.73m2 CKD-EPI Creatinine Equation (2020) Performed By: #### L 100.0100, L500.2500 ####[facility] [address] [place], [address] Glucose [Mass/Vol] 104 mg/dL High 70-99 [facility] Comment on above: Performed By: #### L 100.0100, L500.2500 ####[facility] [address] [place], [address] Potassium [Moles/Vol] 3.9 mmol/L Normal 3.3-5.1 [facility] Comment on above: Performed By: #### L 100.0100, L500.2500 ####[facility] [address] [place], [address] Sodium [Moles/Vol] 137 mmol/L Normal 133-145 [facility] Comment on above: Performed By: #### L 100.0100, L500.2500 ####[facility] [address] [place], [address] Urea nitrogen [Mass/Vol] 8 mg/dL Normal 4-[address] [facility] Comment on above: Performed By: #### L 100.0100, L500.2500 ####[facility] [address] [place], [address] Basophil percentageOrdered B y: Milton Vance on 10-12-2024 Basophils/100 WBC (Bld) 0.4 % 0-1 W [facility] CBC W/Diff, Automatedon 07-2 -2024 Absolute Lymph 1.88 X10 3/uL Normal 0.83-4.[address] [facility] Comment on above: Performed By: #### L 100.0100, L500.2500 ####[facility] [address] [place], [address] Absolute Neut 6.4 X10 3/uL Normal 2.0-7.[address] [facility] Comment on above: Performed By: #### L 100.0100, L500.2500 ####[facility] [address] [place], [address] Basophils/100 WBC (Bld) 0.4 % Normal 0-1 W [facility] Comment on above: Performed By: #### L 100.0100, L500.2500 ####[facility] [address] [place], [address] Eosinophils/100 WBC (Bld) 0.9 % Normal 0-[address] [facility] Comment on above: Performed By: #### L 100.0100, L500.2500 ####[facility] [address] [place], [address] Erythrocyte distribution width (RBC) [Ratio] 13.0 % Normal 11.6-14.[address] [facility] Comment on above: Performed By: #### L 100.0100, L500.2500 ####[facility] [address] [place], [address] Hematocrit (Bld) [Volume fraction] 44.8 % Normal 37-[address] [facility] Comment on above: Performed By: #### L 100.0100, L500.2500 ####[facility] [address] [place], [address] Hemoglobin (Bld) [Mass/Vol] 14.5 g/dL Normal 12.0-15.[address] [facility] Comment on above: Performed By: #### L 100.0100, L500.2500 ####[facility] [address] [place], [address] IG% 0.300 Normal 0.0-0.[address] [facility] Comment on above: Result Comment: IG% - Immature Granulocytes (promyelocytes, myelocytes and metamyelocytes) > 1% indicates that a LEFT SHIFT is Present. Performed By: #### L 100.0100, L500.2500 ####[facility] [address] [place], [address] Lymphocytes/100 WBC (Bld) 20.9 % Normal 19-[address] [facility] Comment on above: Performed By: #### L 100.0100, L500.2500 ####[facility] [address] [place], [address] MCH (RBC) [Entitic mass] 29.5 pg Normal 27.0-32.[address] [facility] Comment on above: Performed By: #### L 100.0100, L500.2500 ####[facility] [address] [place], [address] MCHC (RBC) [Mass/Vol] 32.4 g/dL Normal 32-36 [facility] Comment on above: Performed By: #### L 100.0100, L500.2500 ####[facility] [address] [place], [address] MCV (RBC) [Entitic vol] 91.2 fL Normal 81-99 [facility] Comment on above: Performed By: #### L 100.0100, L500.2500 ####[facility] [address] [place], [address] Monocytes/100 WBC (Bld) 6.8 % Normal 0-10 [facility] Comment on above: Performed By: #### L 100.0100, L500.2500 ####[facility] [address] [place], [address] Neutrophils/100 WBC (Bld) 70.7 % High 47-[address] [facility] Comment on above: Performed By: #### L 100.0100, L500.2500 ####[facility] [address] [place], [address] Nucleated RBC (Bld) [#/Vol] 0 10*3/uL Normal 0-[address] [facility] Comment on above: Performed By: #### L 100.0100, L500.2500 ####[facility] [address] [place], [address] Platelet mean volume (Bld) [Entitic vol] 9.1 fL Normal 6.2-12.[address] [facility] Comment on above: Performed By: #### L 100.0100, L500.2500 ####[facility] [address] [place], [address] Platelets (Bld) [#/Vol] 292 10*3/uL Normal 150-[address] [facility] Comment on above: Performed By: #### L 100.0100, L500.2500 ####[facility] [address] [place], [address] RBC (Bld) [#/Vol] 4.91 10*6/uL Normal 4.2-5.4 [facility] Comment on above: Performed By: #### L 100.0100, L500.2500 ####[facility] [address] [place], [address] RDW SD 43.5 fl Normal 35.1-43.[address] [facility] Comment on above: Performed By: #### L 100.0100, L500.2500 ####[facility] [address] [place], [address] WBC (Bld) [#/Vol] 9.0 10*3/uL Normal 4.4-11.0 [facility] Comment on above: Performed By: #### L 100.0100, L500.2500 ####[facility] [address] [place], [address] CNPNon 10-12-2024 CNPN Telephone (CORSMN) -------- LAISHA ROMERO ([id number]) 1980 F Date Time Provider Department 10/12/24 CLARE MOBLEY During your visit today, we recorded the following information about you: [facility] 10/12/2024 8:15 AM Signed Laisha Romero [phone], experiencing rectal pain, burning with urination along with foul odor. Velma Wei RN 10/12/2024 10:03 AM Signed See response in [...] Status:Closed by JAZZY SWEENEY on 10/12/24 Normal [facility] Carbon dioxide, total [Moles /volume] in Central venous bloodOrdered By: Milton Vance on 10-12-2024 CO2 [Moles/Vol] 23.2 mmol/L 21.0-32.[address] [facility] Chloride assayOrdered By: Juancho Vance on 10-12-2024 Chloride [Moles/Vol] 101 mmol/L 98-108 [facility] Emergency Department Summary on 10-12-2024 Emergency Department Summary [facility] Medical Records Department [address] [place] [address] Emergency Department Summary 10/12/24 MR#: [id number] Acct: [id number] Name: LAISHA ROMERO Rep #: [id number] : 1980 44 From: Milton Hughes PCP: Dr. Sonia Perez MD Status:DEP ER Location: ED HPI History of Present Illness Chief Complaint: Other, Pain/Inj Informant: patient Narrative Narrative: Increasing pain right perianal over 2 days. Status post Mucopexy 4 days ago [facility] by Dr. Bravo. She is under general anesthesia. She is taking stool softeners. Over the last 2 days increasing pain with foul odor drainage. She has been using jyhsye-[id number] Tylenol therefore no fever or chills. She [...] increasing pain, she came here for evaluation. 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 Normal [facility] Eosinophil percentageOrdered By: Milton Vance on 10-12-2024 Eosinophils/100 WBC (Bld) 0.9 % 0-[address] [facility] Erythrocyte distribution wid th ratioOrdered By: Milton Vance on 10-12-2024 Erythrocyte distribution width (RBC) [Ratio] 13.0 % 11.6-14.[address] [facility] Erythrocyte distribution wid th standard deviationOrdered By: Milton Vance on 10-12-2024 Erythrocyte distribution width (RBC) [Ratio] 43.5 fl 35.1-43.[address] [facility] Glomerular filtration rate ( GFR) estimation/1.73 sq m using serum, plasma, or whole bOrdered By: Milton Vance on 10-12-2024 GFR/1.73 sq M.predicted among non-blacks MDRD (S/P/Bld) [Vol rate/Area] 96 mL/min/{1.73_m2} >[address] [facility] Comment on above: mL/min/1.73m2 CKD-EP I Creatinine Equation (2020) Hematocrit Auto (Bld) [Volum e fraction]Ordered By: Milton Vance on 10-12-2024 Hematocrit (Bld) [Volume fraction] 44.8 % 37-[address] [facility] Hemoglobin measurementOrdere d By: Milton Vance on 10-12-2024 Hemoglobin (Bld) [Mass/Vol] 14.5 g/dL 12.0-15.[address] [facility] Immature granulocytes/100 WB C Auto (Bld)Ordered By: Milton Vance on 10-12-2024 Immature granulocytes/100 WBC (Bld) 0.300 % 0.0-0.[address] [facility] Comment on above: IG% - Immature Granu locytes (promyelocytes, myelocytes and metamyelocytes) > 1% indicates that a LEFT SHIFT is Present. MCV (mean corpuscular volume ) determinationOrdered By: Milton Vance on 10-12-2024 MCV (RBC) [Entitic vol] 91.2 fL 81-99 [facility] Mean corpuscular hemoglobin (MCH) determinationOrdered By: Milton Vance on 10-12-2024 MCH (RBC) [Entitic mass] 29.5 pg 27.0-32.[address] [facility] Mean corpuscular hemoglobin concentration (MCHC) determinationOrdered By: Milton Vance on 10-12-2024 MCHC (RBC) [Mass/Vol] 32.4 g/dL 32-36 [facility] Mean platelet volume determi nationOrdered By: Milton Vance on 10-12-2024 Platelet mean volume (Bld) [Entitic vol] 9.1 fL 6.2-12.[address] [facility] Monocyte percentageOrdered B y: Milton Vance on 10-12-2024 Monocytes/100 WBC (Bld) 6.8 % 0-10 [facility] Neutrophil percentageOrdered By: Milton Vance on 10-12-2024 Neutrophils/100 WBC (Bld) 70.7 % High 47-[address] [facility] Nucleated red blood cell per centageOrdered By: Milton Vance on 10-12-2024 Nucleated RBC/100 WBC (Bld) [Ratio] 0 % 0-[address] [facility] Pelvis WITH IV Contraston Pelvis WITH IV Contrast [facility] Imaging Services [address] [place], [place] [address] Pelvis WITH IV Contrast MR#: [id number] Acct: [id number] Name: LAISHA ROMERO Rep #: [id number] : 1980 F 44 From: Ravi Vance MD PCP: Dr. Sonia Perez MD Status: REG ER Study: Pelvis WITH IV Contrast Date of Exam: 10/12/24 Exam# [id number] Ordering Dr: Milton Vance DO EXAM: CT [...] Colonic diverticulosis without acute diverticulitis. Reading Location: [facility] CC: Dr. Sonia Perez MD; Dr. Milton Vance DO Photogrammetry Airplane Pilot: Signed Normal [facility] Platelet countOrdered By: Juancho Vance on 10-12-2024 Platelets (Bld) [#/Vol] 292 10*3/uL 150-[address] [facility] Potassium measurement (mass/ volume)Ordered By: Milton Vance on 10-12-2024 Potassium (Unsp spec) [Mass/Vol] 3.9 mmol/L 3.3-5.[address] [facility] RBC Auto (Bld) [#/Vol]Ordere d By: Milton Vance on 10-12-2024 RBC (Bld) [#/Vol] 4.91 10*6/uL 4.2-5.4 [facility] Serum creatinine measurement (mass/volume)Ordered By: Milton Vance on 10-12-2024 Creatinine [Mass/Vol] 0.78 mg/dL 0.70-1.20 [facility] Serum glucose measurement (m ass/volume)Ordered By: Milton Vance on 10-12-2024 Glucose [Mass/Vol] 104 mg/dL High 70-99 [facility] Serum or plasma calcium domenica urement (mass/volume)Ordered By: Milton Vance on 10-12-2024 Calcium [Mass/Vol] 9.9 mg/dL 7.6-11.0 [facility] Serum or plasma urea nitroge n measurement (mass/volume)Ordered By: Milton Vance on 10-12-2024 Urea nitrogen [Mass/Vol] 8 mg/dL 4-[address] [facility] Sodium levelOrdered By: Milton Vance on 10-12-2024 Sodium [Moles/Vol] 137 mmol/L 133-145 [facility] White blood cell (WBC) count Ordered By: Milton Vance on 10-12-2024 WBC (Bld) [#/Vol] 9.0 10*3/uL 4.4-11.0 [facility] CNPNon 10-11-2024 CNPN Telephone (FRANCY) -------- LAISHA ROMERO ([id number]) 1980 F Date Time Provider Department 10/11/24 CLARE MOBLEY During your visit today, we recorded the following information about you: [facility]/11/2024 12:06 PM Signed Laisha Romero [phone], have questions concerning foul odor from bottom. [...] odor. She was offered an appointment with [facility] today to assess but she is unable to make it to [place]. She is very tearful and not sure [...] her photo of sitz bath in a Tech[employer] message as she was unaware of what that is. CC also let patient know that one of our [facility]'s can see her this week if she wants to come in. CC let patient know if she has significant drainage, fevers, chills then she should present to the ED for evaluation. Concerns: Foul smell from bottom Brand Marketing Coordinator plan for next outreach: Recommendations: Patient send photo in TechDev[employer] of area in question. Use sitz bath [...] Fully Assessed Reason for Visit: Patient Question [1377] Prescriptions as of 10/11/2024 - traMADol (ULTRAM) [...] Encounter Status:Closed by JAZZY SWEENEY on 10/11/24 [facility] ANES POSTPROC EVALon 025 ANES POSTPROC EVAL HNO ID: [id number] Author: BENJAMÍN TOLEDO DO Service: Anesthesiology Author Type: Anesthesiologist Type: Anesthesia Postprocedure Evaluation Filed: 10/08/2024 11:59 Note Text: POST ANESTHESIA EVALUATION NOTE : 1980 Procedure Summary Date: 10/08/24 Room / Location: [address] Anesthesia Start: 1019 Anesthesia Stop: 1048 Procedure: [...] October 08, 2024 TIME: 11:58 AM CSN: [id number] Normal [facility] ANES PRE-OPon 10-08-2024 ANES PRE-OP HNO ID: [id number] Author: BENJAMÍN TOLEDO DO Service: Anesthesiology Author Type: Anesthesiologist Type: Anesthesia Preprocedure Evaluation Filed: 10/08/2024 09:28 Note Text: ANESTHESIOLOGY DAY OF SURGERY NOTE : 1980 Procedure Information Date/Time: 10/08/24 1005 Procedures: EXAM UNDER ANESTHESIA RECTAL (Anus) SIGMOIDOSCOPY FLEXIBLE (Colon Sigmoid) ULTRASOUND TRANSRECTAL (Anus) Location: [address] [place] Surgeons: Clare Mobley DO Estimated [...] and consent discussed: yes. Patient / Responsible Green Party agrees to proceed: yes Patient / [...] October 08, 2024 TIME: 9:27 AM CSN: [id number] Normal [facility] CNCOon 10-08-2024 CNCO Letter Text Letter Text Normal [facility] HISTORY PHYSICALon HISTORY PHYSICAL HNO ID: [id number] Author: CLARE MOBLEY DO Service: Colorectal Author [...] October 08, 2024 TIME: 10:11 AM Normal [facility] OPERATIVE NOon 10-08-2024 OPERATIVE NO HNO ID: [id number] Author: CLARE MOBLEY DO Service: Colorectal Author Type: Physician Type: Operative Report Filed: 10/08/2024 10:52 Note Text: OPERATIVE REPORT LOG ID: [id number] SURGERY DATE: 10/08/2024 INCISION/PROCEDURE START TIME: INCISION [...] with assistance. PATIENT NAME: Laisha Romero Normal [facility] HISTORY PHYSICALon HISTORY PHYSICAL HNO ID: [id number] Author: SLAVA MARIN APRN.NIBBLER OPERATOR Service: ? Author Type: Nurse Practitioner Type: [...] anesthesia consultation for procedure on 10/08/2024 at [facility]. REVIEW OF SYSTEMS: General: No weight loss, [...] congenital heart defect, DVT/PE, hyperlipidemia, hypertension, recent CA, murmur/valvular heart disease, PTCA, PVD, open heart surgery and valve surgery. GI: Positive for: GERD Negative for: abdominal pain, GI bleed <30 days, hepatitis, liver disease, nausea, vomiting and ETOH >2 drinks/day. : denies CKD Negative for: on dialysis, dysuria, flank pain, frequent urination, hematuria, renal failure and urinary tract infection. Endocrine: (more content not included)... Normal [facility] RF Gastrointestinal tract up per Views W water soluble contrast Mayito 09-10-2024 IMPRESSION: CINEDEFECOGRAPHY DESCRIBED -- SEE SYNOPTIC REPORT FOR DETAILS. Photogrammetry Airplane Pilot: MILTON Transcribe Date/Time: Sep 10 2024 9:36A Dictated by : JOSHUA GARCIA MD This examination was interpreted and the report reviewed and electronically signed by: JOSHUA GARCIA MD on Sep 10 2024 9:39AM [facility] DIVISION OF RADIOLOGY * * *Final [...] length and support DIVISION OF RADIOLOGY Provider, [facility] - 09/10/2024 * * *Final Report* * [...] DESCRIBED -- SEE SYNOPTIC REPORT FOR DETAILS. Photogrammetry Airplane Pilot: MILTON Transcribe Date/Time: Sep 10 2024 9:36A Dictated by : JOSHUA GARCIA MD This examination was interpreted and the report reviewed and electronically signed by: JOSHUA GARCIA MD on Sep 10 2024 9:39AM EST [facility] Radiology Study observation (narrative) [facility] Gastrointestinal tract up per Views W water soluble contrast POOrdered By: Ccf Provider on 09-10-2024 [facility] XR DEFECOGRAPHYon 09-10-2024 XR DEFECOGRAPHY * * [...] DESCRIBED -- SEE SYNOPTIC REPORT FOR DETAILS. Photogrammetry Airplane Pilot: MILTON Transcribe Date/Time: Sep 10 2024 9:36A Dictated by : JOSHUA GARCIA MD This examination was interpreted and the report reviewed and electronically signed by: JOSHUA GARCIA MD on Sep 10 2024 9:39AM EST [id number] Normal [facility] Absolute lymphocyte countOrd ered By: HEALTH ASSESSMENT on 09-08-2024 Lymphocytes Auto (Unsp spec) [#/Vol] 1.98 10*3/uL 0.83-4.[address] [facility] Absolute neutrophil countOrd ered By: HEALTH ASSESSMENT on 09-08-2024 Neutrophils (Bld) [#/Vol] 4.1 10*3/uL 2.0-7.[address] [facility] Absolute nucleated red blood cell countOrdered By: HEALTH ASSESSMENT on 09-08-2024 Nucleated RBC (Bld) [#/Vol] 0.00 10*3/uL 0-[address] [facility] Anion gap in Serum or Plasma Ordered By: HEALTH ASSESSMENT on 09-08-2024 Anion gap [Moles/Vol] 14 mmol/L 5-15 [facility] BUN/creatinine ratioOrdered By: HEALTH ASSESSMENT on 09-08-2024 Urea nitrogen/Creatinine [Mass ratio] 13.6 mg/mg 10-[address] [facility] Bilirubin directOrdered By: HEALTH ASSESSMENT on 09-08-2024 Bilirubin.direct [Mass/Vol] 0.19 mg/dL 0.00-0.[address] [facility] Bilirubin, totalOrdered By: HEALTH ASSESSMENT on 09-08-2024 Bilirubin [Mass/Vol] 0.38 mg/dL 0.00-1.30 [facility] Blood band neutrophil count as percentage of total leukocytesOrdered By: HEALTH ASSESSMENT on 09-08-2024 Band form neutrophils/100 WBC (Bld) 62.6 % 47-[address] [facility] CBC, Employeeon 09-08-2024 Absolute Lymph 1.98 X10 3/uL Normal 0.83-4.[address] [facility] Comment on above: Performed By: #### L 400.0100, L100.0200, L500.2900 #### [facility] [address] [place], [place], [address] Absolute Neut 4.1 X10 3/uL Normal 2.0-7.[address] [facility] Comment on above: Performed By: #### L 400.0100, L100.0200, L500.2900 #### [facility] [address] [place], [address] Basophils/100 WBC (Bld) 0.3 % Normal 0-1 [facility] Comment on above: Performed By: #### L 400.0100, L100.0200, L500.2900 #### [facility] [address] [place], [address] Eosinophils/100 WBC (Bld) 0.8 % Normal 0-[address] [facility] Comment on above: Performed By: #### L 400.0100, L100.0200, L500.2900 #### [facility] [address] [place], [address] Erythrocyte distribution width (RBC) [Ratio] 13.2 % Normal 11.6-14.[address] [facility] Comment on above: Performed By: #### L 400.0100, L100.0200, L500.2900 #### [facility] [address] [place], [address] Hematocrit (Bld) [Volume fraction] 40.7 % Normal 37-[address] [facility] Comment on above: Performed By: #### L 400.0100, L100.0200, L500.2900 #### [facility] [address] [place], [address] Hemoglobin (Bld) [Mass/Vol] 13.2 g/dL Normal 12.0-15.[address] [facility] Comment on above: Performed By: #### L 400.0100, L100.0200, L500.2900 #### [facility] [address] [place], [address] Lymphocytes/100 WBC (Bld) 30.0 % Normal 19-[address] [facility] Comment on above: Performed By: #### L 400.0100, L100.0200, L500.2900 #### [facility] [address] [place], [address] MCH (RBC) [Entitic mass] 29.7 pg Normal 27.0-32.[address] [facility] Comment on above: Performed By: #### L 400.0100, L100.0200, L500.2900 #### [facility] [address] [place], [address] MCHC (RBC) [Mass/Vol] 32.4 g/dL Normal 32-36 [facility] Comment on above: Performed By: #### L 400.0100, L100.0200, L500.2900 #### [facility] [address] [place], [address] MCV (RBC) [Entitic vol] 91.5 fL Normal 81-99 [facility] Comment on above: Performed By: #### L 400.0100, L100.0200, L500.2900 #### [facility] [address] [place], [address] Monocytes/100 WBC (Bld) 6.1 % Normal 0-10 [facility] Comment on above: Performed By: #### L 400.0100, L100.0200, L500.2900 #### [facility] [address] [place], [address] Neutrophils/100 WBC (Bld) 62.6 % Normal 47-[address] [facility] Comment on above: Performed By: #### L 400.0100, L100.0200, L500.2900 #### [facility] [address] [place], [address] NRBC # 0.00 10 3/uL Normal 0-[address] [facility] Comment on above: Performed By: #### L 400.0100, L100.0200, L500.2900 #### [facility] [address] [place], [address] Nucleated RBC (Bld) [#/Vol] 0 10*3/uL Normal 0-[address] [facility] Comment on above: Performed By: #### L 400.0100, L100.0200, L500.2900 #### [facility] [address] [place], [address] Platelet mean volume (Bld) [Entitic vol] 9.6 fL Normal 6.2-12.[address] [facility] Comment on above: Performed By: #### L 400.0100, L100.0200, L500.2900 #### [facility] [address] [place], [address] Platelets (Bld) [#/Vol] 306 10*3/uL Normal 150-[address] [facility] Comment on above: Performed By: #### L 400.0100, L100.0200, L500.2900 #### [facility] [address] [place], [address] RBC (Bld) [#/Vol] 4.45 10*6/uL Normal 4.2-5.4 [facility] Comment on above: Performed By: #### L 400.0100, L100.0200, L500.2900 #### [facility] [address] [place], [address] RDW SD 44.5 fl High 35.1-43.[address] [facility] Comment on above: Performed By: #### L 400.0100, L100.0200, L500.2900 #### [facility] [address] [place], [address] WBC (Bld) [#/Vol] 6.6 10*3/uL Normal 4.4-11.0 [facility] Comment on above: Performed By: #### L 400.0100, L100.0200, L500.2900 #### [facility] [address] [place], [place], [address] Calculated very low density lipoprotein (VLDL) cholesterol measurementOrdered By: HEALTH ASSESSMENT on 09-08-2024 Calculated very low density lipoprotein (VLDL) cholesterol measurement 20 mg/dL 5-[address] [facility] Carbon dioxide, total [Moles /volume] in Central venous bloodOrdered By: HEALTH ASSESSMENT on 09-08-2024 CO2 [Moles/Vol] 20.8 mmol/L Low 21.0-32.[address] [facility] Chloride assayOrdered By: HE ALTH ASSESSMENT on 09-08-2024 Chloride [Moles/Vol] 105 mmol/L 98-108 [facility] Employee Profileon LDH 236 U/L Normal 84-[address] [facility] Comment on above: Performed By: #### L 400.0100, L100.0200, L500.2900 #### [facility] [address] [place], [place], [address] Erythrocyte distribution wid th ratioOrdered By: HEALTH ASSESSMENT on 09-08-2024 Erythrocyte distribution width (RBC) [Ratio] 13.2 % 11.6-14.[address] [facility] Erythrocyte distribution wid th standard deviationOrdered By: HEALTH ASSESSMENT on 09-08-2024 Erythrocyte distribution width (RBC) [Ratio] 44.5 fl High 35.1-43.[address] [facility] Glomerular filtration rate ( GFR) estimation/1.73 sq m using serum, plasma, or whole bOrdered By: HEALTH ASSESSMENT on 09-08-2024 GFR/1.73 sq M.predicted among non-blacks MDRD (S/P/Bld) [Vol rate/Area] 102 mL/min/{1.73_m2} >[address] [facility] Comment on above: mL/min/1.73m2 CKD-EP I Creatinine Equation (2020) Hematocrit Auto (Bld) [Volum e fraction]Ordered By: HEALTH ASSESSMENT on 09-08-2024 Hematocrit (Bld) [Volume fraction] 40.7 % 37-[address] [facility] Hemoglobin measurementOrdere d By: HEALTH ASSESSMENT on 09-08-2024 Hemoglobin (Bld) [Mass/Vol] 13.2 g/dL 12.0-15.[address] [facility] Laboratory - Chemistry and C hemistry - challengeOrdered By: HEALTH ASSESSMENT on 09-08-2024 AST [Catalytic activity/Vol] 19 U/L <[address] [facility] Lactate dehydrogenase (LDH) measurementOrdered By: HEALTH ASSESSMENT on 09-08-2024 LDH [Catalytic activity/Vol] 236 U/L 84-[address] [facility] MCV (mean corpuscular volume ) determinationOrdered By: HEALTH ASSESSMENT on 09-08-2024 MCV (RBC) [Entitic vol] 91.5 fL 81-99 [facility] Mean corpuscular hemoglobin (MCH) determinationOrdered By: HEALTH ASSESSMENT on 09-08-2024 MCH (RBC) [Entitic mass] 29.7 pg 27.0-32.[address] [facility] Mean corpuscular hemoglobin concentration (MCHC) determinationOrdered By: HEALTH ASSESSMENT on 09-08-2024 MCHC (RBC) [Mass/Vol] 32.4 g/dL 32-36 [facility] Mean platelet volume determi nationOrdered By: HEALTH ASSESSMENT on 09-08-2024 Platelet mean volume (Bld) [Entitic vol] 9.6 fL 6.2-12.[address] [facility] Nucleated red blood cell per centageOrdered By: HEALTH ASSESSMENT on 09-08-2024 Nucleated RBC/100 WBC (Bld) [Ratio] 0 % 0-[address] [facility] Platelet countOrdered By: HE ALTH ASSESSMENT on 09-08-2024 Platelets (Bld) [#/Vol] 306 10*3/uL 150-[address] [facility] Potassium measurement (mass/ volume)Ordered By: HEALTH ASSESSMENT on 09-08-2024 Potassium (Unsp spec) [Mass/Vol] 3.7 mmol/L 3.3-5.[address] [facility] RBC Auto (Bld) [#/Vol]Ordere d By: HEALTH ASSESSMENT on 09-08-2024 RBC (Bld) [#/Vol] 4.45 10*6/uL 4.2-5.4 [facility] Screening total cholesterol/ high density lipoprotein (HDL) cholesterol ratioOrdered By: HEALTH ASSESSMENT on 09-08-2024 Cholesterol.total/Choles terol in HDL [Mass ratio] 4.01 {ratio} [facility] Serum creatinine measurement (mass/volume)Ordered By: HEALTH ASSESSMENT on 09-08-2024 Creatinine [Mass/Vol] 0.74 mg/dL 0.70-1.20 [facility] Serum globulin measurementOr dered By: HEALTH ASSESSMENT on 09-08-2024 Globulin (S) [Mass/Vol] 3.2 g/dL 2.2-4.2 [facility] Serum glucose measurement (m ass/volume)Ordered By: HEALTH ASSESSMENT on 09-08-2024 Glucose [Mass/Vol] 85 mg/dL 70-99 [facility] Serum or plasma alanine cid otransferase (ALT) measurementOrdered By: HEALTH ASSESSMENT on 09-08-2024 ALT [Catalytic activity/Vol] 22 U/L <[address] [facility] Serum or plasma albumin domenica urement (mass/volume)Ordered By: HEALTH ASSESSMENT on 09-08-2024 Albumin [Mass/Vol] 4.4 g/dL 3.5-5.0 [facility] Serum or plasma albumin/glob ulin mass ratioOrdered By: HEALTH ASSESSMENT on 09-08-2024 Albumin/Globulin [Mass ratio] 1.4 {ratio} 0.9-2.[address] [facility] Serum or plasma alkaline dylan sphatase measurementOrdered By: HEALTH ASSESSMENT on 09-08-2024 ALP [Catalytic activity/Vol] 39 U/L 35-[address] [facility] Serum or plasma calcium domenica urement (mass/volume)Ordered By: HEALTH ASSESSMENT on 09-08-2024 Calcium [Mass/Vol] 9.4 mg/dL 7.6-11.0 [facility] Serum or plasma cholesterol in HDL measurement (mass/volume)Ordered By: HEALTH ASSESSMENT on 09-08-2024 Cholesterol in HDL [Mass/Vol] 42 mg/dL >[address] [facility] Comment on above: National Cholesterol Education Program (NCEP) guidelines:<40 mg/dL: Low HDL-cholesterol (major risk factor for CHD)>= 60 mg/dL: High HDL-cholesterol (negative risk factor for CHD)HDL-cholesterol is affected by a number of factors, e.g. smoking, exercise, hormones, sex and age. Serum or plasma cholesterol in LDL measurement (mass/volume)Ordered By: HEALTH ASSESSMENT on 09-08-2024 Cholesterol in LDL [Mass/Vol] 105 mg/dL 0-[address] [facility] Serum or plasma cholesterol measurement (mass/volume)Ordered By: HEALTH ASSESSMENT on 09-08-2024 Cholesterol [Mass/Vol] 167 mg/dL <201 [facility] Comment on above: Cholesterol level, D esirable <200 mg/dLBorderline high cholesterol 200-239 mg/dLHigh cholesterol >=240 mg/dLRecommendations of the NCEP Adult Treatment Panel for the following risk-cutoff thresholds for the [place] population. Serum or plasma urea nitroge n measurement (mass/volume)Ordered By: HEALTH ASSESSMENT on 09-08-2024 Urea nitrogen [Mass/Vol] 10 mg/dL 4-[address] [facility] Serum or plasma uric acid me asurement (mass/volume)Ordered By: HEALTH ASSESSMENT on 09-08-2024 Urate [Mass/Vol] 4.4 mg/dL 2.6-6.[address] [facility] Comment on above: The drugs N-Acetylcy steine and Metamizole may falsely depress this assay. Sodium levelOrdered By: [facility] ASSESSMENT on 09-08-2024 Sodium [Moles/Vol] 139 mmol/L 133-145 [facility] Total proteinOrdered By: A [facility] ASSESSMENT on 09-08-2024 Protein [Mass/Vol] 7.7 g/dL 5.9-8.4 [facility] Triglycerides measurementOrd ered By: HEALTH ASSESSMENT on 09-08-2024 Triglyceride [Mass/Vol] 99 mg/dL <199 [facility] Comment on above: The drugs N-Acetylcy steine and Metamizole may falsely depress this assay. Normal range: <150 mg/dLBorderline High: 150-199 mg/dLHigh: 200-499 mg/dLVery High: >500 mg/dL Urinalysis, Employeeon 09-08 BILIRUBIN URINE Normal Negative [facility] Comment on above: Order Comment: Urine , Random Result Comment: @PT DIDNT WANT URINE Performed By: #### L 400.0100, L100.0200, L500.2900 #### [facility] [address] [place], [address] Clarity (U) Normal Clear [facility] Comment on above: Order Comment: Urine , Random Result Comment: @PT DIDNT WANT URINE Performed By: #### L 400.0100, L100.0200, L500.2900 #### [facility] [address] [place], [address] Color (U) Normal Yellow [facility] Comment on above: Order Comment: Urine , Random Result Comment: @PT DIDNT WANT URINE Performed By: #### L 400.0100, L100.0200, L500.2900 #### [facility] [address] [place], [address] GLUCOSE, UR Normal Normal [facility] Comment on above: Order Comment: Urine , Random Result Comment: @PT DIDNT WANT URINE Performed By: #### L 400.0100, L100.0200, L500.2900 #### [facility] [address] [place], [address] KETONE UR Normal Negative [facility] Comment on above: Order Comment: Urine , Random Result Comment: @PT DIDNT WANT URINE Performed By: #### L 400.0100, L100.0200, L500.2900 #### [facility] [address] [place], [address] LEUK ESTERASE Normal Negative [facility] Comment on above: Order Comment: Urine , Random Result Comment: @PT DIDNT WANT URINE Performed By: #### L 400.0100, L100.0200, L500.2900 #### [facility] [address] [place], [address] Nitrite Ql (U) Normal Negative [facility] Comment on above: Order Comment: Urine , Random Result Comment: @PT DIDNT WANT URINE Performed By: #### L 400.0100, L100.0200, L500.2900 #### [facility] [address] [place], [address] OCCULT BLOOD-UR Normal Negative [facility] Comment on above: Order Comment: Urine , Random Result Comment: @PT DIDNT WANT URINE Performed By: #### L 400.0100, L100.0200, L500.2900 #### [facility] [address] [place], [address] pH UR Normal 5.0 - 8.[address] [facility] Comment on above: Order Comment: Urine , Random Result Comment: @PT DIDNT WANT URINE Performed By: #### L 400.0100, L100.0200, L500.2900 #### [facility] [address] [place], [address] PROT DIPSTX Normal Negative [facility] Comment on above: Order Comment: Urine , Random Result Comment: @PT DIDNT WANT URINE Performed By: #### L 400.0100, L100.0200, L500.2900 #### [facility] [address] [place], [address] SP.GR. DIPSTX Normal 1.002-1.[address] [facility] Comment on above: Order Comment: Urine , Random Result Comment: @PT DIDNT WANT URINE Performed By: #### L 400.0100, L100.0200, L500.2900 #### [facility] [address] [place], [address] UR Preservative Normal [facility] Comment on above: Order Comment: Urine , Random Result Comment: @PT DIDNT WANT URINE Performed By: #### L 400.0100, L100.0200, L500.2900 #### [facility] [address] [place], [address] UROBILI Normal Normal [facility] Comment on above: Order Comment: Urine , Random Result Comment: @PT DIDNT WANT URINE Performed By: #### L 400.0100, L100.0200, L500.2900 #### [facility] [address] [place], [address] White blood cell (WBC) count Ordered By: HEALTH ASSESSMENT on 09-08-2024 WBC (Bld) [#/Vol] 6.6 10*3/uL 4.4-11.0 [facility] 08-12-2024 [facility] Telephone (PPDaiN) -------- LAISHA ROMERO ([id number]) 1980 F Date Time Provider Department 08/12/24 [...] Encounter Status:Closed by SHIRLENE ZAVALA on 08/12/24 [facility] Telephone (CORSMSheree) -------- LAISAH ROMERO ([id number]) 1980 F Date Time Provider Department 08/12/24 CLARE MOBLEY During your visit today, we recorded the following information about you: Shirlene Zavala RN 08/12/2024 1:24 PM Signed SPECIALTY CARE COORDINATION FOLLOW-UP NOTE Spoke to Laisha. She accepted 10/08 for her procedure in [place]. Discussed doing split enemas (fleets) OTC the evening before and the day of the procedure. Will send a 71lbs message about a week before with general information. She thanked me for the phone call. 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 Chief Complaint: [...] and repair. She is followed by a certified social workers in health care but has not seen him recently. She [...] COPD, dyspnea (more content not included)... Normal [facility] HISTORY PHYSICALon HISTORY PHYSICAL HNO ID: [id number] Author: CLARE MOBLEY DO Service: ? Author Type: Physician Type: H&P Filed: 08/10/2024 19:21 Note Text: [facility] August 02, 2024 Laisha Romero 44 year old This consult was requested by Dr. Herrera and my final recommendations will be communicated to the requesting health care provider by way of the shared medical record for internal providers or letter via the [employer] Service for external providers. Chief Complaint: [...] and repair. She is followed by a certified social workers in health care but has not seen him recently. She [...] No history of dysuria, frequency or incontinence CABINET MAKER: Negative for abnormal vaginal bleeding, abnormal vaginal discharge MUSCULOSKELETAL: Negative for joint (more content not included)... Normal [facility] Thyroid Peroxidase ABon 06-22 THYR PEROX AB 17 IU/mL Normal 0-[address] [facility] Comment on above: Result Comment: Perf ormed at: CB - [facility] [address] [id number] Gem Setter: Edgar Lanza PhD, Phone: [phone] Performed By: #### L 750.2108, V675.7442, X4037.4647, J169.7640 ####[facility] [id number] [place], [address] Absolute lymphocyte countOrd ered By: Liz Iraheta on 06-30-2024 Lymphocytes Auto (Unsp spec) [#/Vol] 2.26 10*3/uL 0.83-4.[address] [facility] Absolute neutrophil countOrd ered By: Liz Iraheta on 06-30-2024 Neutrophils (Bld) [#/Vol] 4.2 10*3/uL 2.0-7.[address] [facility] Automated lymphocyte count a s percentage of total leukocytesOrdered By: Liz Iraheta on 06-30-2024 Lymphocytes/100 WBC Auto (Unsp spec) 31.7 % 19-[address] [facility] Basophil percentageOrdered B y: Liz Iraheta on 06-30-2024 Basophils/100 WBC (Bld) 0.6 % 0-1 [facility] CBC W/Diff, Automatedon Absolute Lymph 2.26 X10 3/uL Normal 0.83-4.[address] [facility] Comment on above: Performed By: #### L 506.0400, L501.9520, L3300.6900, L100.0100 #### [facility] [address] [place], [address] Absolute Neut 4.2 X10 3/uL Normal 2.0-7.[address] [facility] Comment on above: Performed By: #### L 506.0400, L501.9520, L3300.6900, L100.0100 #### [facility] [address] [place], [address] Basophils/100 WBC (Bld) 0.6 % Normal 0-1 [facility] Comment on above: Performed By: #### L 506.0400, L501.9520, L3300.6900, L100.0100 #### [facility] [address] [place], [address] Eosinophils/100 WBC (Bld) 1.8 % Normal 0-[address] [facility] Comment on above: Performed By: #### L 506.0400, L501.9520, L3300.6900, L100.0100 #### [facility] [address] [place], [address] Erythrocyte distribution width (RBC) [Ratio] 13.1 % Normal 11.6-14.[address] [facility] Comment on above: Performed By: #### L 506.0400, L501.9520, L3300.6900, L100.0100 #### [facility] [address] [place], [address] Hematocrit (Bld) [Volume fraction] 41.8 % Normal 37-[address] [facility] Comment on above: Performed By: #### L 506.0400, L501.9520, L3300.6900, L100.0100 #### [facility] [address] [place], [address] Hemoglobin (Bld) [Mass/Vol] 13.6 g/dL Normal 12.0-15.[address] [facility] Comment on above: Performed By: #### L 506.0400, L501.9520, L3300.6900, L100.0100 #### [facility] [address] [place], [address] IG% 0.100 Normal 0.0-0.[address] [facility] Comment on above: Result Comment: IG% - Immature Granulocytes (promyelocytes, myelocytes and metamyelocytes) > 1% indicates that a LEFT SHIFT is Present. Performed By: #### L 506.0400, L501.9520, L3300.6900, L100.0100 #### [facility] [address] [place], [address] Lymphocytes/100 WBC (Bld) 31.7 % Normal 19-[address] [facility] Comment on above: Performed By: #### L 506.0400, L501.9520, L3300.6900, L100.0100 #### [facility] [address] [place], [address] MCH (RBC) [Entitic mass] 29.7 pg Normal 27.0-32.[address] [facility] Comment on above: Performed By: #### L 506.0400, L501.9520, L3300.6900, L100.0100 #### [facility] [address] [place], [address] MCHC (RBC) [Mass/Vol] 32.5 g/dL Normal 32-36 [facility] Comment on above: Performed By: #### L 506.0400, L501.9520, L3300.6900, L100.0100 #### [facility] [address] [place], [address] MCV (RBC) [Entitic vol] 91.3 fL Normal 81-99 [facility] Comment on above: Performed By: #### L 506.0400, L501.9520, L3300.6900, L100.0100 #### [facility] [address] [place], [address] Monocytes/100 WBC (Bld) 7.7 % Normal 0-10 [facility] Comment on above: Performed By: #### L 506.0400, L501.9520, L3300.6900, L100.0100 #### [facility] [address] [place], [address] Neutrophils/100 WBC (Bld) 58.1 % Normal 47-[address] [facility] Comment on above: Performed By: #### L 506.0400, L501.9520, L3300.6900, L100.0100 #### [facility] [address] [place], [address] Nucleated RBC (Bld) [#/Vol] 0 10*3/uL Normal 0-[address] [facility] Comment on above: Performed By: #### L 506.0400, L501.9520, L3300.6900, L100.0100 #### [facility] [address] [place], [address] Platelet mean volume (Bld) [Entitic vol] 9.3 fL Normal 6.2-12.[address] [facility] Comment on above: Performed By: #### L 506.0400, L501.9520, L3300.6900, L100.0100 #### [facility] [address] [place], [address] Platelets (Bld) [#/Vol] 320 10*3/uL Normal 150-[address] [facility] Comment on above: Performed By: #### L 506.0400, L501.9520, L3300.6900, L100.0100 #### [facility] [address] [place], [address] RBC (Bld) [#/Vol] 4.58 10*6/uL Normal 4.2-5.4 [facility] Comment on above: Performed By: #### L 506.0400, L501.9520, L3300.6900, L100.0100 #### [facility] [address] [place], [address] RDW SD 43.9 fl Normal 35.1-43.[address] [facility] Comment on above: Performed By: #### L 506.0400, L501.9520, L3300.6900, L100.0100 #### [facility] [address] [place], [address] WBC (Bld) [#/Vol] 7.1 10*3/uL Normal 4.4-11.0 [facility] Comment on above: Performed By: #### L 506.0400, L501.9520, L3300.6900, L100.0100 #### [facility] [address] [place], [address] Eosinophil percentageOrdered By: Liz Iraheta on 06-30-2024 Eosinophils/100 WBC (Bld) 1.8 % 0-[address] [facility] Erythrocyte distribution wid th (RBC) [Ratio]Ordered By: Liz Iraheta on 06-30-2024 Erythrocyte distribution width (RBC) [Entitic vol] 43.9 fL 35.1-43.[address] [facility] Erythrocyte distribution wid th ratioOrdered By: Liz Iraheta on 06-30-2024 Erythrocyte distribution width (RBC) [Ratio] 13.1 % 11.6-14.[address] [facility] Erythrocyte distribution wid th standard deviationOrdered By: Liz Iraheta on 06-30-2024 Erythrocyte distribution width (RBC) [Ratio] 43.9 fl 35.1-43.[address] [facility] Hematocrit Auto (Bld) [Volum e fraction]Ordered By: Liz Iraheta on 06-30-2024 Hematocrit (Bld) [Volume fraction] 41.8 % 37-[address] [facility] Hemoglobin measurementOrdere d By: Liz Iraheta on 06-30-2024 Hemoglobin (Bld) [Mass/Vol] 13.6 g/dL 12.0-15.[address] [facility] Immature granulocytes/100 WB C Auto (Bld)Ordered By: Liz Iraheta on 06-30-2024 Immature granulocytes/100 WBC (Bld) 0.100 % 0.0-0.[address] [facility] Comment on above: IG% - Immature Granu locytes (promyelocytes, myelocytes and metamyelocytes) > 1% indicates that a LEFT SHIFT is Present. Lymphocytes Auto (Unsp spec) [#/Vol]Ordered By: Liz Iraheta on 06-30-2024 Lymphocytes (Bld) [#/Vol] 2.26 10*3/uL 0.83-4.[address] [facility] Lymphocytes/100 WBC Auto (Un sp spec)Ordered By: Liz Iraheta on 06-30-2024 Lymphocytes/100 WBC (Bld) 31.7 % 19-[address] [facility] MCV (mean corpuscular volume ) determinationOrdered By: Liz Iraheta on 06-30-2024 MCV (RBC) [Entitic vol] 91.3 fL 81-99 [facility] Mean corpuscular hemoglobin (MCH) determinationOrdered By: Liz Iraheta on 06-30-2024 MCH (RBC) [Entitic mass] 29.7 pg 27.0-32.[address] [facility] Mean corpuscular hemoglobin concentration (MCHC) determinationOrdered By: Liz Iraheta on 06-30-2024 MCHC (RBC) [Mass/Vol] 32.5 g/dL 32-36 [facility] Mean platelet volume determi nationOrdered By: Liz Iraheta on 06-30-2024 Platelet mean volume (Bld) [Entitic vol] 9.3 fL 6.2-12.[address] [facility] Monocyte percentageOrdered B y: Liz Iraheta on 06-30-2024 Monocytes/100 WBC (Bld) 7.7 % 0-10 [facility] Neutrophil percentageOrdered By: Liz Iraheta on 06-30-2024 Neutrophils/100 WBC (Bld) 58.1 % 47-[address] [facility] Nucleated red blood cell per centageOrdered By: Liz Iraheta on 06-30-2024 Nucleated RBC/100 WBC (Bld) [Ratio] 0 % 0-[address] [facility] Office Visit Reporton 06-30-2024 [facility] Office Visit Report [facility] [address], [address] [place] [address] OFFICE VISIT Date of Service: 06/30/24 MR#: [id number] Acct: [id number] Name: LAISHA ROMERO Rep #: [id number] : 1980 Provider: JAXSON wood Age/Sex: 44/F Location: [facility] Status: Signed Intake Vital Signs 03/01/24 06:25 06/30/24 14:09 06/30/24 14:15 Height 5 ft 6 in 5 ft 6 in 5 ft 6 in Weight: 156 lb 6 oz BMI 25.2 BP 118/72 Intake Visit Reasons: Menopause sx Chief Complaint: Menopause sx Marketing 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 Normal [facility] Platelet countOrdered By: Wale Iraheta on 06-30-2024 Platelets (Bld) [#/Vol] 320 10*3/uL 150-[address] [facility] RBC Auto (Bld) [#/Vol]Ordere d By: Liz Iraheta on 06-30-2024 RBC (Bld) [#/Vol] 4.58 10*6/uL 4.2-5.4 [facility] Serum or plasma thyroperoxid ase antibody assay (units/volume)Ordered By: Liz Iraheta on 06-30-2024 TPO Ab Qn 17 [IU]/mL 0- [facility] Comment on above: Performed at: [employer] [address] [id number] Director: Edgar Lanza PhD, Phone: [phone] T4 Free Directon 06-30-2024 T4 FREE DIRECT 1.20 ng/dL Normal 0.76-1.[address] [facility] Comment on above: Performed By: #### L 506.0400, L501.9520, L3300.6900, L100.0100 ####[facility] [id number] [place], [address] T4 freeOrdered By: Liz wolfe on 06-30-2024 Free T4 [Mass/Vol] 1.20 ng/dL 0.76-1.46 [facility] TPO Ab QnOrdered By: Liz hood on 06-30-2024 Thyroid Peroxidase Antibodies 17 IU/mL 0- [facility] Comment on above: Performed at: [employer] [address] [id number] Director: Edgar Lanza PhD, Phone: [phone] TSH DL <= 0.005 mIU/L QnOrde red By: Liz Iraheta on 06-30-2024 Thyroid Stimulating Hormone (TSH) 0.981 uIU/mL 0.300-4.[address] [facility] TSH Qn 0.981 uIU/mL 0.300-4.[address] [facility] Thyroid Stim Hormone (TSH)on 06-30-2024 TSH 0.981 uIU/mL Normal 0.300-4.[address] [facility] Comment on above: Performed By: #### L 506.0400, L501.9520, L3300.6900, L100.0100 ####[facility] [id number] [place], [address] White blood cell (WBC) count Ordered By: Liz Iraheta on 06-30-2024 WBC (Bld) [#/Vol] 7.1 10*3/uL 4.4-11.0 [facility] [facility], [place] AT III Func / Immunolon 12-2 AT3 AG, IMMUNOL 109 Normal 72-[address] [facility] Comment on above: Order Comment: Test( s) 038686-Vurtvxlbake; 224437-Nbank Activity, Plasmawas developed and its performance characteristicsdetermined by [facility]. It has not been cleared or approvedby the Food and Drug Administration.N Performed By: #### L 3100.5600, L3100.8408, L4500.0100, L3100.5700, L3100.7325, L101.9900, L801.2600, L3100.5800, L3100.7250, L3100.7050, L4500.2000, L3300.0450, L4500.5000, L3100.5055, L509.6000, L3300.1050, L3400.0200 ####[facility] [address] [place], [place], [phone] AT3 FUNCTIONAL 139 High 75-[address] [facility] Comment on above: Order Comment: Test( s) 875946-Wvkbkofxdqb; 600398-Ipukm Activity, Plasmawas developed and its performance characteristicsdetermined by [facility]. It has not been cleared or approvedby the Food and Drug Administration.N Result Comment: An e levated antithrombin activity is of no known clinical significance. Direct Xa inhibitor anticoagulants such as rivaroxaban, apixaban and edoxaban will lead to spuriously elevated antithrombin activity levels possibly masking a deficiency. Performed By: #### L 3100.5600, L3100.8408, L4500.0100, L3100.5700, L3100.7325, L101.9900, L801.2600, L3100.5800, L3100.7250, L3100.7050, L4500.2000, L3300.0450, L4500.5000, L3100.5055, L509.6000, L3300.1050, L3400.0200 ####[facility] [address] [place], [place], [phone] Anticardiolipin IgA,G,Mon ANTICARDIO IgA < 9 Normal 0-[address] [facility] Comment on above: Order Comment: Test( s) 368111-Giyqcqvqrpx; 345633-Driwe Activity, Plasmawas developed and its performance characteristicsdetermined by [facility]. It has not been cleared or approvedby the Food and Drug Administration.N Result Comment: Nega tive: <12 Indeterminate: 12 - 20 Low-Med Positive: >20 - 80 High Positive: >80 Performed By: #### L 3100.5600, L3100.8408, L4500.0100, L3100.5700, L3100.7325, L101.9900, L801.2600, L3100.5800, L3100.7250, L3100.7050, L4500.2000, L3300.0450, L4500.5000, L3100.5055, L509.6000, L3300.1050, L3400.0200 ####[facility] [address] [place], [address] ANTICARDIO IgG < 9 Normal 0-[address] [facility] Comment on above: Order Comment: Test( s) 904481-Jarazjazuqd; 513656-Ubbqu Activity, Plasmawas developed and its performance characteristicsdetermined by [facility]. It has not been cleared or approvedby the Food and Drug Administration.N Result Comment: Nega tive: <15 Indeterminate: 15 - 20 Low-Med Positive: >20 - 80 High Positive: >80 Performed By: #### L 3100.5600, L3100.8408, L4500.0100, L3100.5700, L3100.7325, L101.9900, L801.2600, L3100.5800, L3100.7250, L3100.7050, L4500.2000, L3300.0450, L4500.5000, L3100.5055, L509.6000, L3300.1050, L3400.0200 ####[facility] [address] [place], [address] Anticardio.IgM 10 MPL U/mL Normal 0-[address] [facility] Comment on above: Order Comment: Test( s) 801953-Lgyawbmufpp; 907134-Oorjw Activity, Plasmawas developed and its performance characteristicsdetermined by [facility]. It has not been cleared or approvedby the Food and Drug Administration.N Result Comment: Nega tive: <13 Indeterminate: 13 - 20 Low-Med Positive: >20 - 80 High Positive: >80 Performed By: #### L 3100.5600, L3100.8408, L4500.0100, L3100.5700, L3100.7325, L101.9900, L801.2600, L3100.5800, L3100.7250, L3100.7050, L4500.2000, L3300.0450, L4500.5000, L3100.5055, L509.6000, L3300.1050, L3400.0200 ####[facility] [address] [place], [address] Complement C3on 03-21-2024 COMP C3 147 mg/dL Normal 82-[address] [facility] Comment on above: Order Comment: Test( s) 593686-Esglwwjtzxv; 986019-Hsozv Activity, Plasmawas developed and its performance characteristicsdetermined by [facility]. It has not been cleared or approvedby the Food and Drug Administration.N Performed By: #### L 3100.5600, L3100.8408, L4500.0100, L3100.5700, L3100.7325, L101.9900, L801.2600, L3100.5800, L3100.7250, L3100.7050, L4500.2000, L3300.0450, L4500.5000, L3100.5055, L509.6000, L3300.1050, L3400.0200 ####[facility] [address] [place], [place], [phone] Complement C4on 03-21-2024 COMPLEMENT, C4 26 mg/dL Normal 12-[address] [facility] Comment on above: Order Comment: Test( s) 848799-Ckuiayfwxfc; 128479-Vmkkc Activity, Plasmawas developed and its performance characteristicsdetermined by [facility]. It has not been cleared or approvedby the Food and Drug Administration.N Performed By: #### L 3100.5600, L3100.8408, L4500.0100, L3100.5700, L3100.7325, L101.9900, L801.2600, L3100.5800, L3100.7250, L3100.7050, L4500.2000, L3300.0450, L4500.5000, L3100.5055, L509.6000, L3300.1050, L3400.0200 ####[facility] [address] [place], [address] Complement CH50on 03-21-2024 COMPLEMENT,CH50 44 U/mL Normal >[address] [facility] Comment on above: Order Comment: Test( s) 088219-Abxiydeplmq; 155340-Cknuf Activity, Plasmawas developed and its performance characteristicsdetermined by [facility]. It has not been cleared or approvedby the Food and Drug Administration.N Result Comment: Age Male Female 1 - [...] of range values. Performed By: #### L 3100.5600, L3100.8408, L4500.0100, L3100.5700, L3100.7325, L101.9900, L801.2600, L3100.5800, L3100.7250, L3100.7050, L4500.2000, L3300.0450, L4500.5000, L3100.5055, L509.6000, L3300.1050, L3400.0200 ####[facility] [address] [place], [address] Estrogen, Total, Serumon ESTROGENS,TOTAL 183 pg/mL Normal . [facility] Comment on above: Order Comment: Test( s) 013924-Ufwupizztzq; 985561-Qicmf Activity, Plasmawas developed and its performance characteristicsdetermined by [facility]. It has not been cleared or approvedby the Food and Drug Administration.N Result Comment: Prep ubertal < 40 Female Cycle: 1-10 Days 16 - 328 11-20 Days 34 - 501 21-30 Days 48 - 350 Post-Menopausal 40 - 244 Performed By: #### L 3100.5600, L3100.8408, L4500.0100, L3100.5700, L3100.7325, L101.9900, L801.2600, L3100.5800, L3100.7250, L3100.7050, L4500.2000, L3300.0450, L4500.5000, L3100.5055, L509.6000, L3300.1050, L3400.0200 ####[facility] [address] [place], [place], [phone] Fact V Leiden Mutationon FACTOR V LEIDEN Comment Normal . [facility] Comment on above: Order Comment: Test( s) 633668-Bbtrehubfnx; 674652-Qegft Activity, Plasmawas developed and its performance characteristicsdetermined by [facility]. It has not been cleared or approvedby the Food and Drug Administration.N Result Comment: Resu lt: c.1601G>A (p.Myf070Jso) - Not Detected This result is not associated with an increased risk for venous thromboembolism. See Additional Clinical Information and Comments. Additional Clinical Information: Venous thromboembolism is a multifactorial disease influenced by genetic, environmental, and circumstantial risk factors. The c.1601G>A (p. Rjv228Ajo) variant in the F5 gene, commonly referred [...] c.*97G>A variant and Factor V Leiden (PMID: 61824541). Additional risk factors include but are not [...] health care providers to discuss results at [phone] ([phone]). Test Details: Variant Analyzed: c.1601G>A (p. Qvv966Avb), referred to as Factor V Leiden Methods/Limitations: [...] developed and its performance characteristics determined by [facility]. It has not been cleared or approved by the Food and Drug Administration. References: Deng S, Nora AK, Yoav R, Jonnathan WW, Modesto JH; ACM[employer] Professional Practice and Guidelines Committee. Addendum: [employer] consensus statement on factor V Leiden mutation testing. Romy Med. 2020May 26. doi: 10.1038/[id number]-q. PMID: 11692650. Steven GHOTRA. Factor V Leiden Thrombophilia. 1998August 04 (Updated 2017Mar 27). In: Faisal MP, Toribio HH, Roman RA, et al., editors. Zen(R) (Internet). [place] ([place]): [facility]; 1496-1454. Available from: https://www.ncbi.nlm.nih.gov/books/XQI1660/ Dexter S, Nora AK, Nowak X, Shahbaz B, Kevin EB, Adrianne P, Warren CS; [facility] Laboratory Compress Engineer Committee. Venous thromboembolism laboratory testing (factor V Leiden and factor II c.*97G>A), 2018 update: a technical standard of the [employer] and [employer] (ACMG). Romy Med. 2018 Feb;20(12):3144-1381. doi: 10.1038/[id number]-o. Epub 2017Dec 26. PMID: 47747576. Performed By: #### L 3100.5600, L3100.8408, L4500.0100, L3100.5700, L3100.7325, L101.9900, L801.2600, L3100.5800, L3100.7250, L3100.7050, L4500.2000, L3300.0450, L4500.5000, L3100.5055, L509.6000, L3300.1050, L3400.0200 ####[facility] [address] [place], [place], [phone] Reviewed By Comment Normal . [facility] Comment on above: Order Comment: Test( s) 669045-Xzaydkhkbvk; 322944-Exmrj Activity, Plasmawas developed and its performance characteristicsdetermined by [facility]. It has not been cleared or approvedby the Food and Drug Administration.N Result Comment: Tech nical Component performed at [facility] RTP Professional Component performed by: Krys Ruano, Ph.D., [facility] Director, Molecular Genetics [address] [place] [address] [facility] [address] Performed By: #### L 3100.5600, L3100.8408, L4500.0100, L3100.5700, L3100.7325, L101.9900, L801.2600, L3100.5800, L3100.7250, L3100.7050, L4500.2000, L3300.0450, L4500.5000, L3100.5055, L509.6000, L3300.1050, L3400.0200 ####[facility] [address] [place], [address] Factor II, DNA Analysison FACTOR II, DNA Comment Normal . [facility] Comment on above: Order Comment: Test( s) 573702-Jfpltgvosbj; 276634-Ipkfr Activity, Plasmawas developed and its performance characteristicsdetermined by [facility]. It has not been cleared or approvedby [...] the F2 gene and a c.1601G>A (p. Pbd882Hme) variant in the F5 gene (commonly referred to as Factor V Leiden) have an approximately 20- fold increased risk for venous thromboembolism. Risks are likely to be even higher in more complex genotype combinations involving the F2 c.*97G>A variant and Factor V Leiden (PMID: 65262872). Additional risk factors include but are not [...] health care providers to discuss results at [phone] ([phone]). Test Details: Variant analyzed: c.*97G>A, previously referred to as H51064Y Methods/Limitations: DNA analysis of the F2 gene [...] developed and its performance characteristics determined by [facility]. It has not been cleared or approved by the Food and Drug Administration. References: Deng S, Nora MURRIETA, Yoav R, Jonnathan WW, [place] JH; [employer] Professional Practice and Guidelines Committee. Addendum: [employer] consensus statement on factor V Leiden mutation testing. Romy Med. 2020May 26. doi: 10.1038/[id number]-b. PMID: 16328124. Steven GHOTRA. Prothrombin Thrombophilia. 2005Oct 15 [Updated 2020Apr 27]. In: Faisal MP, Toribio HH, Roman RA, et al., editors. Zen(R) [Internet]. [place] ([place]): [facility]; 6956-6542. Available from: https://www.ncbi.nlm.nih.gov/books/QTK9252/ Dexter Levine, Nora MURRIETA, Eliu X, Shahbaz B, Kevin EB, Adrianne P, Warren CS; [employer] Laboratory Compress Engineer Committee. Venous thromboembolism laboratory testing (factor V Leiden and factor II c.*97G>A), 2018 update: a technical standard of the [employer] (ACMG). Romy Med. 2018 Feb;20(12):8097-7591. doi: 10.1038/[id number]-h. Epub 2017Dec 26. PMID: 07147430. Performed By: #### L 3100.5600, L3100.8408, L4500.0100, L3100.5700, L3100.7325, L101.9900, L801.2600, L3100.5800, L3100.7250, L3100.7050, L4500.2000, L3300.0450, L4500.5000, L3100.5055, L509.6000, L3300.1050, L3400.0200 ####[facility] [address] [facility]. [place], [place], [phone] Lupus Anticoagulant Compon 1 05-22-2023 aPTT Coag (Bld) [Time] 34.2 s Normal 0.0-43.5 [facility] Comment on above: Order Comment: Test( s) 819032-Olbjmtdtprj; 506790-Hvrah Activity, Plasmawas developed and its performance characteristicsdetermined by [facility]. It has not been cleared or approvedby the Food and Drug Administration.N Performed By: #### L 3100.5600, L3100.8408, L4500.0100, L3100.5700, L3100.7325, L101.9900, L801.2600, L3100.5800, L3100.7250, L3100.7050, L4500.2000, L3300.0450, L4500.5000, L3100.5055, L509.6000, L3300.1050, L3400.0200 ####[facility] [address] [place], [place], [phone] DILUTE PT (dPT) 34.9 sec Normal 0.0-47.[address] [facility] Comment on above: Order Comment: Test( s) 778752-Tuhntdhzhoy; 184215-Roydm Activity, Plasmawas developed and its performance characteristicsdetermined by [facility]. It has not been cleared or approvedby the Food and Drug Administration.N Performed By: #### L 3100.5600, L3100.8408, L4500.0100, L3100.5700, L3100.7325, L101.9900, L801.2600, L3100.5800, L3100.7250, L3100.7050, L4500.2000, L3300.0450, L4500.5000, L3100.5055, L509.6000, L3300.1050, L3400.0200 ####[facility] [address] [place], [place], [phone] dPT Conf. Ratio 1.02 Ratio Normal 0.00-1.[address] [facility] Comment on above: Order Comment: Test( s) 465782-Tnczeggbkpv; 595469-Xkkxv Activity, Plasmawas developed and its performance characteristicsdetermined by [facility]. It has not been cleared or approvedby the Food and Drug Administration.N Performed By: #### L 3100.5600, L3100.8408, L4500.0100, L3100.5700, L3100.7325, L101.9900, L801.2600, L3100.5800, L3100.7250, L3100.7050, L4500.2000, L3300.0450, L4500.5000, L3100.5055, L509.6000, L3300.1050, L3400.0200 ####[facility] [address] [place], [place], [phone] DRVVT 33.6 sec Normal 0.0-47.[address] [facility] Comment on above: Order Comment: Test( s) 458899-Mizydodxunw; 466484-Zlzqt Activity, Plasmawas developed and its performance characteristicsdetermined by [facility]. It has not been cleared or approvedby the Food and Drug Administration.N Performed By: #### L 3100.5600, L3100.8408, L4500.0100, L3100.5700, L3100.7325, L101.9900, L801.2600, L3100.5800, L3100.7250, L3100.7050, L4500.2000, L3300.0450, L4500.5000, L3100.5055, L509.6000, L3300.1050, L3400.0200 ####[facility] [address] [place], [place], [phone] Interpretation Comment: Normal . [facility] Comment on above: Order Comment: Test( s) 721756-Kynraccwctc; 030801-Bszgw Activity, Plasmawas developed and its performance characteristicsdetermined by [facility]. It has not been cleared or approvedby the Food and Drug Administration.N Result Comment: No l upus anticoagulant was detected. Performed By: #### L 3100.5600, L3100.8408, L4500.0100, L3100.5700, L3100.7325, L101.9900, L801.2600, L3100.5800, L3100.7250, L3100.7050, L4500.2000, L3300.0450, L4500.5000, L3100.5055, L509.6000, L3300.1050, L3400.0200 ####[facility] [address] [place], [address] THROMBIN TIME 16.1 sec Normal 0.0-23.[address] [facility] Comment on above: Order Comment: Test( s) 148672-Alpywajksbu; 097325-Awlid Activity, Plasmawas developed and its performance characteristicsdetermined by [facility]. It has not been cleared or approvedby the Food and Drug Administration.N Performed By: #### L 3100.5600, L3100.8408, L4500.0100, L3100.5700, L3100.7325, L101.9900, L801.2600, L3100.5800, L3100.7250, L3100.7050, L4500.2000, L3300.0450, L4500.5000, L3100.5055, L509.6000, L3300.1050, L3400.0200 ####[facility] [address] [place], [address] Protein C, Functionalon 12-2 PROTEIN C,FUNC 124 Normal 73-[address] [facility] Comment on above: Order Comment: Test( s) 662946-Vuzyfjalbcs; 253165-Dmqhc Activity, Plasmawas developed and its performance characteristicsdetermined by [facility]. It has not been cleared or approvedby the Food and Drug Administration.N Result Comment: Perf ormed at: - [address] [id number] Gem Setter: Sydni Crabtree MD, Phone: [phone] Performed at: [facility] [id number] [place], [place] [id number] Gem Setter: Edgar Lanza PhD, Phone: [phone] Performed at: [facility] [address] [place], [place] [id number] Gem Setter: Robert Joyce [facility], Phone: [phone] Performed By: #### L 3100.5600, L3100.8408, L4500.0100, L3100.5700, L3100.7325, L101.9900, L801.2600, L3100.5800, L3100.7250, L3100.7050, L4500.2000, L3300.0450, L4500.5000, L3100.5055, L509.6000, L3300.1050, L3400.0200 ####[facility] [address] [facility] [place], [address](922) Protein S Antigenon 03-21-20 24 PROTEIN S, FREE 124 Normal 61-[address] [facility] Comment on above: Order Comment: Test( s) 456368-Sqvesfpunvp; 536575-Chpro Activity, Plasmawas developed and its performance characteristicsdetermined by [facility]. It has not been cleared or approvedby the Food and Drug Administration.N Performed By: #### L 3100.5600, L3100.8408, L4500.0100, L3100.5700, L3100.7325, L101.9900, L801.2600, L3100.5800, L3100.7250, L3100.7050, L4500.2000, L3300.0450, L4500.5000, L3100.5055, L509.6000, L3300.1050, L3400.0200 ####[facility] [address] [facility]. [place], [place], [phone]) PROTEIN S,TOTAL 110 Normal 60-[address] [facility] Comment on above: Order Comment: Test( s) 054745-Lisnucxxvwg; 869494-Rdzhd Activity, Plasmawas developed and its performance characteristicsdetermined by [facility]. It has not been cleared or approvedby the Food and Drug Administration.N Result Comment: This test was developed and its performance characteristics determined by [facility]. It has not been cleared or approved by the Food and Drug Administration. Performed By: #### L 3100.5600, L3100.8408, L4500.0100, L3100.5700, L3100.7325, L101.9900, L801.2600, L3100.5800, L3100.7250, L3100.7050, L4500.2000, L3300.0450, L4500.5000, L3100.5055, L509.6000, L3300.1050, L3400.0200 ####[facility] [address] [facility] [address] [address] [place], [place], [address] Protein S, Functionalon 02-22 PROTEIN S, FUNC 105 Normal 63-[address] [facility] Comment on above: Order Comment: Test( s) 868328-Qpnwllevcqf; 442389-Hytdj Activity, Plasmawas developed and its performance characteristicsdetermined by [facility]. It has not been cleared or approvedby the Food and Drug Administration.N Result Comment: Prot ein S activity may be falsely increased (masking an abnormal, low result) in patients receiving direct Xa inhibitor (e.g., rivaroxaban, apixaban, edoxaban) or a direct thrombin inhibitor (e.g., dabigatran) anticoagulant treatment due to assay interference by these drugs. Performed By: #### L 3100.5600, L3100.8408, L4500.0100, L3100.5700, L3100.7325, L101.9900, L801.2600, L3100.5800, L3100.7250, L3100.7050, L4500.2000, L3300.0450, L4500.5000, L3100.5055, L509.6000, L3300.1050, L3400.0200 ####[facility] [address] [place], [address] Renin/Aldosterone Activityon 03-21-2024 ALD/RENIN RATIO 3.2 Normal 0.0-30.[address] [facility] Comment on above: Order Comment: Test( s) 556665-Avhjekgzqlj; 633962-Qnjra Activity, Plasmawas developed and its performance characteristicsdetermined by [facility]. It has not been cleared or approvedby the Food and Drug Administration.N Result Comment: Unit s: ng/dL per ng/mL/hr Performed By: #### L 3100.5600, L3100.8408, L4500.0100, L3100.5700, L3100.7325, L101.9900, L801.2600, L3100.5800, L3100.7250, L3100.7050, L4500.2000, L3300.0450, L4500.5000, L3100.5055, L509.6000, L3300.1050, L3400.0200 ####[facility] [address] [facility] [place], [place], [phone](473) ALDOSTERONE,S 6.4 ng/dL Normal 0.0-30.[address] [facility] Comment on above: Order Comment: Test( s) 178346-Xefehsoelbt; 022361-Nbqin Activity, Plasmawas developed and its performance characteristicsdetermined by [facility]. It has not been cleared or approvedby the Food and Drug Administration.N Performed By: #### L 3100.5600, L3100.8408, L4500.0100, L3100.5700, L3100.7325, L101.9900, L801.2600, L3100.5800, L3100.7250, L3100.7050, L4500.2000, L3300.0450, L4500.5000, L3100.5055, L509.6000, L3300.1050, L3400.0200 ####[facility] [address] [place], [place], [phone](831) RENIN, PLASMA 1.971 ng/mL/hr Normal 0.167-5.[address] [facility] Comment on above: Order Comment: Test( s) 424267-Jrmkuykaqwh; 158399-Myrbd Activity, Plasmawas developed and its performance characteristicsdetermined by [facility]. It has not been cleared or approvedby the Food and Drug Administration.N Performed By: #### L 3100.5600, L3100.8408, L4500.0100, L3100.5700, L3100.7325, L101.9900, L801.2600, L3100.5800, L3100.7250, L3100.7050, L4500.2000, L3300.0450, L4500.5000, L3100.5055, L509.6000, L3300.1050, L3400.0200 ####[facility] [address] [place], [place], [phone] PROGESTERONE 4317on 03-12-20 24 PROGESTERONE 3.1 ng/mL Normal . [facility] Comment on above: Order Comment: N Result Comment: Foll icular phase 0.1 - 0.9 Luteal phase 1.8 - 23.9 Ovulation phase 0.1 - 12.0 First trimester 11.0 - 44.3 Second trimester 25.4 - 83.3 Third trimester 58.7 - 214.0 Postmenopausal 0.0 - 0.1 Performed at: [place] [address] Gem Setter: Edgar Lanza PhD, Phone: [phone] Performed By: #### L 3100.5600, L3100.8408, L4500.0100, L3100.5700, L3100.7325, L101.9900, L801.2600, L3100.5800, L3100.7250, L3100.7050, L4500.2000, L3300.0450, L4500.5000, L3100.5055, L509.6000, L3300.1050, L3400.0200 ####[facility] [address] [place], [place], [phone] CORTISOL SERUMon 03-11-2024 CORTISOL 12.00 ug/dL Normal 3.44-22.[address] [facility] Comment on above: Result Comment: Adul t (AM) 5.27 - 22.45 ug/dL Adult (PM) 3.44 - 16.76 ug/dL Performed By: #### L 3100.5600, L3100.8408, L4500.0100, L3100.5700, L3100.7325, L101.9900, L801.2600, L3100.5800, L3100.7250, L3100.7050, L4500.2000, L3300.0450, L4500.5000, L3100.5055, L509.6000, L3300.1050, L3400.0200 ####[facility] [address] [place], [address] Aldosterone, serumOrdered By : Octavio Rodríguez on 03-10-2024 Aldosterone 6.4 ng/dL 0.0-30.[address] [facility] Aldosterone/Renin (P) [Ratio ]Ordered By: Octavio Rodríguez on 03-10-2024 Aldosterone/Renin Ratio 3.2 0.0-30.0 [facility] Comment on above: Units: ng/dL per ng/ mL/hr Antithrombin Ag IA Ql (PPP)O rdered By: Octavio Rodríguez on 03-10-2024 Anti-Thrombin III Antigen 109 % 72-[address] [facility] Antithrombin actual/normal C hromogenic method (PPP) [Rel catalytic activity/Vol]Ordered By: Octavio Rodríguez on 03-10-2024 Functional Antithrombin III 139 % High 75-[address] [facility] Comment on above: An elevated antithro mbin activity is of no known clinicalsignificance. Direct Xa inhibitor anticoagulants such asrivaroxaban, apixaban and edoxaban will lead to spuriouslyelevated antithrombin activity levels possibly masking adeficiency. Cardiolipin IgA QnOrdered By : Octavio Rodríguez on 03-10-2024 Anti-Cardiolipin IgA Antibody < 9 APL U/mL 0-[address] [facility] Comment on above: Negative: <12 Indete rminate: 12 - 20 Low-Med Positive: >20 - 80 High Positive: >80 Cardiolipin IgG IA Qn (S)Ord ered By: Octavio Rodríguez on 03-10-2024 Anti-Cardiolipin IgG Antibody < 9 GPL U/mL 0-[address] [facility] Comment on above: Negative: <15 Indete rminate: 15 - 20 Low-Med Positive: >20 - 80 High Positive: >80 Clotting factor V Leiden mut ation detectionOrdered By: Octavio Rodríguez on 03-10-2024 Factor V Leiden Mutation Comment . [facility] Comment on above: Result: c.1601G>A (p .Ggh547Zcb) - Not DetectedThis result is not associated with an increased risk for venousthromboembolism. See Additional Clinical Information andComments.Additional Clinical Information:Venous thromboembolism is a multifactorial diseaseinfluenced by genetic, environmental, and circumstantialrisk factors. The c.1601G>A (p. Svi067Vef) variant in theF5 gene, commonly referred to [...] F2 c.*97G>Avariant and Factor V Leiden (PMID: 92147100). Additionalrisk factors include but are not limited [...] for health careproviders to discuss results at [phone] ([phone]).Test Details:Variant Analyzed: c.1601G>A (p. [id number]), referred toas Factor V LeidenMethods/Limitations:DNA analysis of [...] was developed and its performance characteristicsdetermined by [facility]. It has not been cleared orapproved by the Food and Drug Administration.References:eDng Levine, Nora MURRIETA, Yoav R, Jonnathan WW, Modesto JH; ACMGProfessional Practice and Guidelines Committee. Addendum:[employer] consensus statement onfactor V Leiden mutation testing. Romy Med. 2020May 26.doi: 10.1038/o36507-376-64088-y. PMID: 09100756.Steven GHOTRA. Factor V Leiden Thrombophilia. 1998August 04(Updated 2017Mar 27). In: Faisal MP, Toribio HH, Roman RA,et al., editors. Jobdoh(R) (Internet). [place] ([place]):[facility], [place]; 0424-7882. Availablefrom: https://www.ncbi.nlm.nih.gov/books/RAN7845/Dexter Levine, Nora MURRIETA, Eliu X, Shahbaz B, Kevin EB, Adrianne P,Warren CS; ACMG Laboratory Compress Engineer Committee.Venous thromboembolism laboratory testing (factor V Leidenand factor II c.*97G>A), 2018 update: a technical standardof the [employer] and Genomics(ACMG). Romy Med. 2018 Feb;20(12):9402-8447. doi:10.1038/h44270-762-4730-i. Epub 2017Dec 26. PMID: 46372895. Complement C3 assayOrdered B y: Octavio Rodríguez on 03-10-2024 Complement C3 147 mg/dL 82-[address] [facility] Complement C4 [Mass/Vol]Orde red By: Octavio Rodríguez on 03-10-2024 Complement C4 26 mg/dL 12-[address] [facility] Cortisol [Mass/Vol]Ordered B y: Octavio Rodríguez on 03-10-2024 Cortisol 12.00 ug/dL 3.44-22.[address] [facility] Comment on above: Adult (AM) 5.27 - 22 .45 ug/dL Adult (PM) 3.44 - 16.76 ug/dL Dilute prothrombin time rati o confirmationOrdered By: Octaviokoffi Rodríguez on 03-10-2024 Prothrombin Time Ratio 1.02 Ratio 0.00-1.34 [facility] Erythrocyte Sed Rateon 03-10 SED RATE 11 mm/hr Normal 0-[address] [facility] Comment on above: Performed By: #### L 3100.5600, L3100.8408, L4500.0100, L3100.5700, L3100.7325, L101.9900, L801.2600, L3100.5800, L3100.7250, L3100.7050, L4500.2000, L3300.0450, L4500.5000, L3100.5055, L509.6000, L3300.1050, L3400.0200 ####[facility] [address] [place], [place], [id number] Erythrocyte sedimentation ra teOrdered By: Octaviokoffi Rodríguez on 03-10-2024 ESR (Bld) [Velocity] 11 mm/h 0-30 [facility] Estrogen [Mass/Vol]Ordered B y: Octaviokoffi Rodríguez on 03-10-2024 Total Estrogens 183 pg/mL . [facility] Comment on above: Prepubertal < 40 Fem arslan Cycle: 1-10 Days 16 - 328 11-20 Days 34 - 501 21-30 Days 48 - 350 Post-Menopausal 40 - 244 F2 gene targeted mutation an alysis Molgen Nom (Bld/Tiss)Ordered By: Octavio Rodríguez on 03-10-2024 Factor II DNA Analysis Comment . [facility] Comment on above: Result: c.*97G>A - N [...] in theF2 gene and a c.1601G>A (p. Goo541Edk) variant in the F5 gene(commonly referred to as Factor V Leiden) have an approximately 20-fold increased risk for venous thromboembolism. Risks are likely adria even higher in more complex genotype combinations involving theF2 c.*97G>A variant and Factor V Leiden (PMID: 51300354). Additionalrisk factors include but are not limited [...] for health care providers to discussresults at [phone] ([phone]).Test Details:Variant analyzed: c.*97G>A, previously referred to as [id number]/Limitations:DNA analysis of the F2 gene (NM_000506.5) was [...] was developed and its performance characteristics determinedby [employer]. It has not been cleared or approved by the Food and DrugAdministration.References:Deng S, Nora MURRIETA, Yoav R, Jonnathan WW, Modesto JH; ACMG ProfessionalPractice and Guidelines Committee. Addendum: [employer] consensus statement on factor V Leiden mutationtesting. Romy Med. 2020May 26. doi: 10.1038/i78644-657-18111-l.PMID: 14280809.Steven GHOTRA. Prothrombin Thrombophilia. 2005Oct 15[Updated 2020Apr 27]. In: Faisal MP, Toribio HH, Roman RA, et al.,editors. Zen(R) [Internet]. [place] ([place]): [facility]; 6173-9081. Available from:https://www.ncbi.nlm.nih.gov/books/CIR0501/Dexter S, Nora MURRIETA, Eliu X, Shahbaz B, Kevin EB, Adrianne P, Warren CS;ACMG Laboratory Compress Engineer Committee. Venous thromboembolismlaboratory testing (factor V Leiden and factor II c.*97G>A),2018 update: a technical standard of the [employer] MedicalGenetics and Genomics (ACMG). Romy Med. 2018 Feb;20(12):5376-7219.doi: 10.1038/u78800-605-4822-d. Epub 2017Dec 26. PMID: 26393478. FSH and LHon 03-10-2024 FSH 4.4 mIU/mL Normal [facility] Comment on above: Result Comment: NORMAL REFERENCE RANGES FEMALE FOLLICULAR 2.3 - 12.6 mIU/mL MID-CYCLE PEAK 5.2 - 17.5 mIU/mL LUTEAL 1.7 - 12.9 mIU/mL POST-MENOPAUSAL ON MHT 5.9 - 72.8 mIU/mL NOT ON MHT 12.7 - 132.2 mlU/mL MALE 0.7 - 10.8 mIU/mL Performed By: #### L 3100.5600, L3100.8408, L4500.0100, L3100.5700, L3100.7325, L101.9900, L801.2600, L3100.5800, L3100.7250, L3100.7050, L4500.2000, L3300.0450, L4500.5000, L3100.5055, L509.6000, L3300.1050, L3400.0200 ####[facility] [address] [place], [place], [address](629) LH 6.5 mIU/mL Normal [facility] Comment on above: Result Comment: NORMAL REFERENCE RANGES FEMALE FOLLICULAR 1.9 - 26.2 mIU/mL MID-CYCLE PEAK 22.8 - 76.1 mIU/mL LUTEAL 0.6 - 16.6 mIU/mL POST-MENOPAUSAL ON MHT 1.1 - 52.4 mIU/mL NOT ON MHT 8.6 - 61.8 mIU/mL MALE 1.2 - 10.6 mIU/mL Performed By: #### L 3100.5600, L3100.8408, L4500.0100, L3100.5700, L3100.7325, L101.9900, L801.2600, L3100.5800, L3100.7250, L3100.7050, L4500.2000, L3300.0450, L4500.5000, L3100.5055, L509.6000, L3300.1050, L3400.0200 ####[facility] [address] [place], [place], [address] Follicle stimulating hormone (FSH) levelOrdered By: Octavio Rodríguez on 03-10-2024 Follicle Stimulating Hormone 4.4 mIU/mL [facility] Comment on above: NORMAL REFERENCE RAN GES FEMALE FOLLICULAR 2.3 - 12.6 mIU/mL MID-CYCLE PEAK 5.2 - 17.5 mIU/mL LUTEAL 1.7 - 12.9 mIU/mL POST-MENOPAUSAL ON MHT 5.9 - 72.8 mIU/mL NOT ON MHT 12.7 - 132.2 mlU/mL MALE 0.7 - 10.8 mIU/mL Gastroenterology Visit Repor ton 03-10-2024 Gastroenterology Visit Report [facility] Gastroenterology [address] [place] [address] OFFICE VISIT Date of Service: 03/10/24 MR#: [id number] Acct: [id number] Name: LAISHA ROMERO Rep #: [id number] : 1980 Provider: Octavio Rodríguez DO Age/Sex: 44/F Location: [facility] Status: Signed Intake Vital Signs 03/01/24 06:25 [...] at home: Yes 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 Normal [facility] Interpretation of lupus anti coagulant assayOrdered By: Octavio Rodríguez on 03-10-2024 Lupus Anticoagulant Interpretation Comment: . [facility] Comment on above: No lupus anticoagula nt was detected. Lupus anticoagulant neutrali zation dilute phospholipid time in platelet poor plasmaOrdered By: Octavio Rodríguez on 03-10-2024 Prothrombin Time Diluted 34.9 sec 0.0-47.[address] [facility] Lupus anticoagulant-sensitiv e activated partial thromboplastin timeOrdered By: Octavio Rodríguez on 03-10-2024 Lupus Anticoagulant APTT 34.2 sec 0.0-43.[address] [facility] Luteinizing hormone measurem entOrdered By: Octavio Rodríguez on 03-10-2024 Luteinizing Hormone 6.5 mIU/mL [facility] Comment on above: NORMAL REFERENCE RAN GES FEMALE FOLLICULAR 1.9 - 26.2 mIU/mL MID-CYCLE PEAK 22.8 - 76.1 mIU/mL LUTEAL 0.6 - 16.6 mIU/mL POST-MENOPAUSAL ON MHT 1.1 - 52.4 mIU/mL NOT ON MHT 8.6 - 61.8 mIU/mL MALE 1.2 - 10.6 mIU/mL Protein C actual/normal Dumb Waiter Operator mogenic method (PPP) [Rel catalytic activity/Vol]Ordered By: Octavio Rodríguez on 03-10-2024 Functional Protein C 124 % 73-180 [facility] Comment on above: Performed at: [facility] [address] [id number] Director: Sydni Crabtree MD, Phone: [phone] at: [facility] [id number] [place], [place] [id number] Director: Edgar Lanza PhD, Phone: [phone] at: - [facility] [id number] [place], [place] [id number] Director: Robert Joyce [facility], Phone: [phone] Protein C Functional Activity Not Reportable [facility] Protein S Coag Qn (PPP)Order ed By: Octavio Rodríguez on 03-10-2024 Total Protein S 110 % 60-[address] [facility] Comment on above: This test was develo ped and its performance characteristicsdetermined by [employer]. It has not been cleared orapproved by the Food and Drug Administration. Protein S Free Ag IA Qn (PPP )Ordered By: Octavio Rodríguez on 03-10-2024 Free Protein S 124 % 61-[address] [facility] Protein S actual/normal Coag (PPP) [Relative time]Ordered By: Octavio Rodríguez on 03-10-2024 Functional Protein S 105 % 63-140 [facility] Comment on above: Protein S activity m ay be falsely increased (masking anabnormal, low result) in patients receiving direct Xainhibitor (e.g., rivaroxaban, apixaban, edoxaban) or adirect thrombin inhibitor (e.g., dabigatran) anticoagulanttreatment due to assay interference by these drugs. Quantitative serum progester one measurement by electrochemiluminescence immunoassay (Ordered By: Octavio Rodríguez on 03-10-2024 Progesterone Level 3.1 ng/mL . [facility] Comment on above: Follicular phase 0.1 - 0.9 Luteal phase 1.8 - 23.9 Ovulation phase 0.1 - 12.0 First trimester 11.0 - 44.3 Second trimester 25.4 - 83.3 Third trimester 58.7 - 214.0 Postmenopausal 0.0 - 0.1Performed at: [facility] [employer] [id number] Director: Edgar Lanza PhD, Phone: [phone] Renin (P) [Catalytic activit y/Vol]Ordered By: Octavio Rodríguez on 03-10-2024 Renin 1.971 ng/mL/hr 0.167-5.[address] [facility] Serum cardiolipin IgM antibo dy assayOrdered By: Octavio Rodríguez on 03-10-2024 Anti-Cardiolipin IgM Antibody 10 MPL U/mL 0-[address] [facility] Comment on above: Negative: <13 Indete rminate: 13 - 20 Low-Med Positive: >20 - 80 High Positive: >80 Thrombin time Coag (PPP) [Ti me]Ordered By: Octavio Rodríguez on 03-10-2024 Thrombin Time 16.1 sec 0.0-23.[address] [facility] Total hemolytic (CH50) compl ement assayOrdered By: Octavio Rodríguez on 03-10-2024 Total Complement (CH50) 44 U/mL >41 [facility] Comment on above: Age Male Female [...] Gurjit Viper Venom (Lupus) 33.6 sec 0.0-47.[address] [facility] Colonoscopy Reporton 024 Colonoscopy Report [facility] Medical Records Department [address] [place] [address] Colonoscopy Report MR#: [id number] Acct: [id number] Name: LAISHA ROMERO ANGEL LUIS Rep #: [id number] : 1980 44 From: Octavio Rodríguez DO PCP: Dr. Sonia Perez MD Status:REG [place] Patient Name: Laisha Romero Procedure Date: 03/01/2024 [...] for surveillance. Procedure Code(s): --- Professional --- 69739, Colonoscopy, flexible; with biopsy, single or multiple CPT copyright 2021 [employer]. All rights reserved. The codes documented in this report are preliminary and upon camelid fiber sorter review may be revised to meet current compliance requirements. Octavio Rodríguez DO 03/01/2024 7:42:03 AM This report has been signed electronically. Number of Addenda: 0 Note Initiated On: 03/01/2024 7:07 AM 03/01/24 0742 Date Octavio Patel Signature: Date (more content not included)... Normal [facility] MR/POSTOP.JAMESon 03-01-2024 MR/POSTOP.[facility] Medical Records Department [address] [place] [address] Anesthesia Postop Eval I 03/01/24 0744 MR#: [id number] Acct: [id number] Name: LAISHA ROMERO ANGEL LUIS Rep #: [id number] : 1980 44 From: Gregg Nichols PCP: Dr. Sonia Perez MD Status:REG SDC Y Race: C Location: [place] [address] Anesthesia: Postop Eval I Current Vital Signs [...] Anesthesia document: Postop Eval 1 completed: Yes 03/01/2445 Date Gregg Garcia Signature: Date CC: Signed Normal [facility] MR/LKMFDYGA4ge 03-01-2024 MR/POSTOPAN2 [facility] Medical Records Department [address] [place] [address] Anesthesia Postop Eval II 03/01/24 0835 MR#: [id number] Acct: [id number] Name: LAISHA ROMERO ANGEL LUIS Rep #: [id number] : 1980 44 From: Yousif Caban MD PCP: Dr. Sonia Perez MD Status:[facility] Y Race: C Location: [place] Anesthesia Postop [...] Yousif Garcia Signature: Date CC: Signed Normal [facility] ,Urineon 03-01-2024 Beta HCG ( test) Ql (U) Negative Normal [facility] Comment on above: Result Comment: Very dilute urine specimens, as indicated by a low specific gravity, may not contain inside technical sales representative levels of hCG. If is still suspected, a first morning urine specimen should be collected 48 hours later and tested. Performed By: #### L 400.7600 ####[facility] [address] [place], [address] Surgery Specimen Level Nahun 03-01-2024 Surgery Specimen Level IV Patient Age/Sex Location Account Attending Physician LAISHA ROMERO 44/F EN [id number] Octavio Rodríguez DO Specimen: [id number] Received: 03/01/24 Status: ARMOND Riggins Num: [id number] Spec Type: COLON BX Subm Dr: Octavio Rodríguez DO HEADER OPERATION: Colonoscopy with biopsies PRE-OP DIAGNOSIS: Constipation, [...] specimen is totally submitted in one cassette. AM. 03/01/2024 TC:5 CPT:91972b1 Patient Age/Sex Location Account Attending Physician LAISHA ROMERO 44/F EN [id number] Octavio Rodríguez DO Signed (signature on file) Dr. Andrey Finney DO 03/02/[address] [facility] Comment on above: Performed By: #### P DENISSE ####[facility] [address] [place], [place], [id number] Laboratory - Chemistry and C hemistry - challengeOrdered By: Anibal Meadows on 07-14-2023 HCG ( test) Ql (U) Negative [facility] Comment on above: Very dilute urine sp ecimens, as indicated by a low specificgravity, may not contain inside technical sales representative levels of hCG. If is still suspected, a first morning urinespecimen should be collected 48 hours later and tested. Absolute lymphocyte countOrd ered By: Pepe Titus on 06-02-2023 Lymphocytes Auto (Unsp spec) [#/Vol] 2.92 10*3/uL 0.83-4.[address] [facility] Automated lymphocyte count a s percentage of total leukocytesOrdered By: Pepe Titus on 06-02-2023 Lymphocytes/100 WBC Auto (Unsp spec) 33.6 % 19-[address] [facility] Basophil percentageOrdered B y: Pepe Titus on 06-02-2023 Amylase [Catalytic activity/Vol] 59 U/L 25-[address] [facility] Basophils/100 WBC (Bld) 0.5 % 0-1 [facility] Bilirubin [Mass/Vol] 0.60 mg/dL 0.20-1.00 [facility] Comment on above: For patients on eltr ombopag therapy, use of Dimension [place] TBIL is not recommended. Chloride [Moles/Vol] 105 mmol/L 98-107 [facility] Eosinophils/100 WBC (Bld) 0.8 % 0-[address] [facility] Glucose [Mass/Vol] 92 mg/dL 74-106 [facility] Hemoglobin (Bld) [Mass/Vol] 14.9 g/dL 12.0-15.[address] [facility] Monocytes/100 WBC (Bld) 6.9 % 0-10 [facility] Neutrophils (Bld) [#/Vol] 5.0 10*3/uL 2.0-7.[address] [facility] Neutrophils/100 WBC (Bld) 57.7 % 47-[address] [facility] Potassium [Moles/Vol] 4.0 mmol/L 3.5-5.1 [facility] Protein [Mass/Vol] 8.7 g/dL 6.4-8.2 [facility] Sodium [Moles/Vol] 136 mmol/L 136-145 [facility] WBC (Bld) [#/Vol] 8.7 10*3/uL 4.4-11.0 [facility] Determination of erythrocyte mean corpuscular volume (MCV)Ordered By: Pepe Titus on 06-02-2023 MCV (RBC) [Entitic vol] 91.0 fL 81-99 [facility] Erythrocyte distribution wid th ratioOrdered By: Pepe Titus on 06-02-2023 Erythrocyte distribution width (RBC) [Ratio] 13.3 % 11.6-14.[address] [facility] Erythrocyte distribution wid th standard deviationOrdered By: Pepe Titus on 06-02-2023 Erythrocyte distribution width (RBC) [Entitic vol] 44.7 fL 35.1-43.[address] [facility] Hematocrit Auto (Bld) [Volum e fraction]Ordered By: Pepe Titus on 06-02-2023 Hematocrit (Bld) [Volume fraction] 46.4 % 37-[address] [facility] Immature granulocytes/100 WB C Auto (Bld)Ordered By: Pepe Titus on 06-02-2023 Immature granulocytes/100 WBC (Bld) 0.500 % 0.0-0.[address] [facility] Comment on above: IG% - Immature Granu locytes (promyelocytes, myelocytes and metamyelocytes) > 1% indicates that a LEFT SHIFT is Present. Laboratory - Chemistry and C hemistry - challengeOrdered By: Pepe Titus on 06-02-2023 Albumin/Globulin [Mass ratio] 1.1 {ratio} 0.9-2.[address] [facility] ALP [Catalytic activity/Vol] 52 U/L 45-[address] [facility] ALT [Catalytic activity/Vol] 17 U/L 13-[address] [facility] CO2 [Moles/Vol] 26.0 mmol/L 21.0-32.[address] [facility] Globulin (S) [Mass/Vol] 4.1 g/dL 2.2-4.2 [facility] Lipase [Catalytic activity/Vol] 36 U/L 13-[address] [facility] Comment on above: Please note:LIPASE r evised reference range effective 22. New Lipase methodology. Expected to produce lower values than the previous assay method. NEW Reference Range: 13 - 75 U/L Urea nitrogen/Creatinine [Mass ratio] 11.2 mg/mg 10-[address] [facility] Laboratory - Hematology and Cell countsOrdered By: Pepe Titus on 06-02-2023 MCH (RBC) [Entitic mass] 29.2 pg 27.0-32.[address] [facility] MCHC (RBC) [Mass/Vol] 32.1 g/dL 32-36 [facility] Nucleated RBC/100 WBC (Bld) [Ratio] 0 % 0-[address] [facility] Platelet mean volume (Bld) [Entitic vol] 9.3 fL 6.2-12.[address] [facility] Platelets (Bld) [#/Vol] 333 10*3/uL 150-[address] [facility] No Panel InformationOrdered By: Pepe Titus on 06-02-2023 Estimated GFR (MDRD) Amer 89 mL/min >[address] [facility] Comment on above: GFR Calc Estimated GFR (MDRD) Non-Af Amer 73 mL/min >[address] [facility] Comment on above: Non- GFR Calc RBC Auto (Bld) [#/Vol]Ordere d By: Pepe Titus on 06-02-2023 RBC (Bld) [#/Vol] 5.10 10*6/uL 4.2-5.4 [facility] Serum or plasma calcium domenica urement (mass/volume)Ordered By: Pepe Titus on 06-02-2023 Calcium [Mass/Vol] 9.9 mg/dL 8.5-10.1 [facility] Serum or plasma creatinine m easurement (mass/volume)Ordered By: Pepe Titus on 06-02-2023 Creatinine [Mass/Vol] 0.89 mg/dL 0.55-1.02 [facility] Comment on above: The validity of the calculated GFR & GFRAA in patients over 70 years has not been determined. Clinical correlation is essential. Serum or plasma urea nitroge n measurement (mass/volume)Ordered By: Pepe Titus on 06-02-2023 Urea nitrogen [Mass/Vol] 10 mg/dL 7-[address] [facility] Thin prep Papanicolaou smear with manual screeningOrdered By: Pepe Titus on 06-02-2023 Thin prep Papanicolaou smear with manual screening 4.6 g/dL 3.2-5.[address] [facility] Thin prep Papanicolaou smear with manual screening 16 U/L 15-[address] [facility] Thin prep Papanicolaou smear with manual screening 5 5-[address] [facility] Cervical or vaginal specimen microscopic examination by liquid based cytology (reportOrdered By: Liz Iraheta on 01-28-2023 Cytology report Cyto stain.thin prep Doc (Cvx/Vag) Comment . [facility] Comment on above: Criteria not met, HP V Genotype not performed.Performed at: - [facility] [id number] Director: Garima Hodges MD, Phone: [phone] at: =G - [facility] [address] [id number] Director: Garima Hodges MD, Phone: [phone] Cervical or vagninal specime n microscopic examination by cytology stain (reported asOrdered By: Liz Iraheta on 01-28-2023 Cytology report Cyto stain Doc (Cvx/Vag) Comment . [facility] Comment on above: The Pap smear is [...] DNA Probe+sig amp Ql (Cvx) Negative Negative [facility] Comment on above: This nucleic acid am plification test detects fourteen high-risk HPV types (16,18,31,33,35,39,45,51,52,56,58,59,66,68)without differentiation. Laboratory - CytologyOrdered By: Liz Iraheta on 01-28-2023 Edge Molder Cyto stain Nom (Cvx/Vag) [ID] Comment . [facility] Comment on above: Brenna Reyes, Cyto technologist (ASCP) Laboratory - Miscellaneous t estsOrdered By: Liz Iraheta on 01-28-2023 Service comment (Unsp spec) [Interp] Comment . [facility] Comment on above: This liquid based Th inPrep(R) pap test was screened withthe use of an image guided system. Service comment (Unsp spec) [Interp] . . [facility] No Panel InformationOrdered By: Liz Iraheta on 01-28-2023 Pap Smear QC Review Comment . [facility] Comment on above: Avery Still ytotechnologist (ASCP) Pathology report final diagnosis Narrative Comment . [facility] [facility] Comment on above: NEGATIVE FOR INTRAEP ITHELIAL LESION OR MALIGNANCY.THIS SPECIMEN WAS RESCREENED PART OF OUR SUSTAINABLE SYSTEMS ANALYST PROGRAM. Laboratory - Chemistry and C hemistry - challengeOrdered By: Yousif Caban on 12-26-2022 HCG ( test) Ql (U) Negative [facility] Comment on above: Very dilute urine sp ecimens, as indicated by a low specificgravity, may not contain inside technical sales representative levels of hCG. If is still suspected, a first morning urinespecimen should be collected 48 hours later and tested. URINE CULTURE,BACTERIALon URINE CULTURE,BACTERIAL PATIENT: LAISHA MIDDLETON LOCATION: [address]#: [id number] : 78 AGE: SEX: F ORDERED BY: COLTEN TAYLOR SOURCE: URINE COLLECTED: 12/10/22 15:32 ANTIBIOTICS AT [facility].: RECEIVED : 12/11/22 13:14 SITE: Clean Catch/Voided R E S U L T S URINE CULTURE,BACTERIAL FINAL 12/12/22 08:59 NO GROWTH Normal [facility] Comment on above: Performed By: #### U [facility] #### [facility] [id number] [place] [address] Atypical perinuclear antineu trophil cytoplasmic antibodies measurementOrdered By: Kim Waggoner on 09-12-2022 Neutrophil cytoplasmic Ab.perinuclear.atypical IF (S) [Titer] <1:20 titer Neg:<1:[address] [facility] Comment on above: Serum is slightly li pemic.The atypical pANCA pattern has been observed in asignificant percentage of patients with ulcerative colitis,primary sclerosing cholangitis and autoimmune hepatitis.Performed at: [facility] [place] [id number] Director: Edgar Lanza PhD, Phone: [phone] Basophil percentageOrdered B y: Kim Waggoner on 09-12-2022 Basophil percentage < 0.2 AI 0.0-0.9 [facility] No Panel InformationOrdered By: Kim Waggoner on 09-12-2022 Centromere B Antibody <0.2 AI 0.0-0.9 [facility] Endomysial IgA Antibody Negative Negative [facility] Comment on above: Serum is slightly li pemic. ACQUISITIONS LOGISTICS ANALYST Antibody 0.3 AI 0.0-0.[address] [facility] Serum DNA double strand anti body assay (units/volume)Ordered By: Kim Waggoner on 09-12-2022 DNA double strand Ab Qn (S) 1 [IU]/mL 0-[address] [facility] Comment on above: Negative <5 Equivoca l 5 - 9 Positive >9 Serum IgA measurement (units /volume)Ordered By: Kim Waggoner on 09-12-2022 IgA Qn (S) 218 mg/dL 87-[address] [facility] Serum Stacia-1 antibody assay (u nits/volume)Ordered By: Kim Waggoner on 09-12-2022 Stacia-1 extractable nuclear Ab Qn (S) <0.2 AI 0.0-0.[address] [facility] Serum Scl-70 extractable nuc lear antibody assay (units/volume)Ordered By: Kim Waggoner on 09-12-2022 SCL-70 extractable nuclear Ab Qn (S) <0.2 AI 0.0-0.[address] [facility] Serum Martínez extractable nucl ear antibody detectionOrdered By: Kim Waggoner on 09-12-2022 Martínez extractable nuclear Ab Ql (S) <0.2 AI 0.0-0.[address] [facility] Serum classic neutrophil cyt oplasmic antibody assay (units/volume)Ordered By: Kim Waggoner on 09-12-2022 Neutrophil cytoplasmic Ab.classic Qn (S) <1:20 titer Neg:<1:[address] [facility] Comment on above: Serum is slightly li pemic. Serum perinuclear neutrophil cytoplasmic antibody titer by immunofluorescenceOrdered By: Kim Waggoner on 09-12-2022 Neutrophil cytoplasmic Ab.perinuclear IF (S) [Titer] <1:20 titer Neg:<1:[address] [facility] Comment on above: Serum is slightly li pemic.The presence of positive fluorescence exhibiting P-ANCA orC-ANCA patterns alone is not specific for the diagnosis ofWegener's Granulomatosis (WG) or microscopic polyangiitis.Decisions about treatment should not be based solely onANCA IFA results. The International ANCA Group Consensusrecommends follow up testing of positive sera with both NH-3 and MPO-ANCA enzyme immunoassays. As many as 5% serumsamples are positive only by EIA. Ref. AM J Clin [id number];111:507-513. Serum tissue transglutaminas e IgA antibody assay (units/volume)Ordered By: Kim Waggoner on 09-12-2022 tTG IgA Qn (S) <2 U/mL 0-[address] [facility] Comment on above: Negative 0 - 3 Weak Positive 4 - 10 Positive >10 Tissue Transglutaminase (tTG) has been identified as the endomysial antigen. Studies have demonstr- ated that endomysial IgA antibodies have over 99% specificity for gluten sensitive enteropathy. Basophil percentageon 2022 Basophil percentage 0-5 SEEN /hpf 0-5 [facility] Bilirubin [Mass/Vol] 0.50 mg/dL 0.20-1.00 [facility] Comment on above: For patients on eltr ombopag therapy, use of Dimension [place] TBIL is not recommended. Chloride [Moles/Vol] 107 mmol/L 98-107 [facility] Glucose [Mass/Vol] 89 mg/dL 74-106 [facility] Potassium [Moles/Vol] 4.1 mmol/L 3.5-5.1 [facility] Protein [Mass/Vol] 8.1 g/dL 6.4-8.2 [facility] Sodium [Moles/Vol] 137 mmol/L 136-145 [facility] WBC (Bld) [#/Vol] 6.6 10*3/uL 4.4-11.0 [facility] Bilirubin Test strip Ql (U)o n 09-05-2022 Bilirubin Ql (U) Negative Negative [facility] Blood erythrocytes count (nu mber/volume)on 09-05-2022 RBC (Bld) [#/Vol] 4.63 10*6/uL 4.2-5.4 [facility] Blood hemoglobin measurement (mass/volume)on 09-05-2022 Hemoglobin (Bld) [Mass/Vol] 13.5 g/dL 12.0-15.[address] [facility] Blood platelet mean volumeon 09-05-2022 Platelet mean volume (Bld) [Entitic vol] 9.4 fL 6.2-12.[address] [facility] Determination of erythrocyte mean corpuscular volume (MCV)on 09-05-2022 MCV (RBC) [Entitic vol] 92.7 fL 81-99 [facility] Hematocrit Auto (Bld) [Volum e fraction]on 09-05-2022 Hematocrit (Bld) [Volume fraction] 42.9 % 37-[address] [facility] Ketones Test strip Ql (U)on 09-05-2022 Ketones Ql (U) Negative Negative [facility] Laboratory - Chemistry and C hemistry - challengeon 09-05-2022 ALP [Catalytic activity/Vol] 62 U/L 45-[address] [facility] ALT [Catalytic activity/Vol] 21 U/L 13-[address] [facility] CO2 [Moles/Vol] 24.0 mmol/L 21.0-32.[address] [facility] Globulin (S) [Mass/Vol] 4.0 g/dL 2.2-4.2 [facility] Urea nitrogen/Creatinine [Mass ratio] 13.0 mg/mg 10-[address] [facility] Laboratory - Hematology and Cell countson 09-05-2022 Erythrocyte distribution width (RBC) [Entitic vol] 46.4 fL 35.1-43.[address] [facility] Erythrocyte distribution width (RBC) [Ratio] 13.6 % 11.6-14.[address] [facility] MCH (RBC) [Entitic mass] 29.2 pg 27.0-32.[address] [facility] MCHC Auto (RBC) [Mass/Vol]on 09-05-2022 MCHC (RBC) [Mass/Vol] 31.5 g/dL 32-36 [facility] Mucus LM Ql (Urine sed)on Mucus Ql (Urine sed) 0 SEEN /hpf [facility] Nitrite Test strip Ql (U)on 09-05-2022 Nitrite Ql (U) Negative Negative [facility] No Panel Informationon 09-05 Estimated GFR (MDRD) Amer 105 mL/min >[address] [facility] Comment on above: GFR Calc Estimated GFR (MDRD) Non-Af Amer 87 mL/min >[address] [facility] Comment on above: Non- GFR Calc Platelets bldon 09-05-2022 Platelets (Bld) [#/Vol] 313 10*3/uL 150-[address] [facility] Protein Test strip Ql (U)on 09-05-2022 Protein Ql (U) 15 mg/dl Negative [facility] Serum or plasma albumin domenica urement (mass/volume)on 09-05-2022 Albumin [Mass/Vol] 4.1 g/dL 3.2-5.0 [facility] Serum or plasma albumin/glob ulin mass ratioon 09-05-2022 Albumin/Globulin [Mass ratio] 1.0 {ratio} 0.9-2.[address] [facility] Serum or plasma calcium domenica urement (mass/volume)on 09-05-2022 Calcium [Mass/Vol] 10.0 mg/dL 8.5-10.1 [facility] Serum or plasma creatinine m easurement (mass/volume)on 09-05-2022 Creatinine [Mass/Vol] 0.77 mg/dL 0.55-1.02 [facility] Comment on above: The validity of the calculated GFR & GFRAA in patients over 70 years has not been determined. Clinical correlation is essential. Serum or plasma urea nitroge n measurement (mass/volume)on 09-05-2022 Urea nitrogen [Mass/Vol] 10 mg/dL 7-[address] [facility] Squamous epithelial cells de tection in urine sediment by light microscopyon 09-05-2022 Epithelial cells.squamous LM Ql (Urine sed) 0-5 SEEN /hpf 5-[address] [facility] Thin prep Papanicolaou smear with manual screeningon 09-05-2022 Thin prep Papanicolaou smear with manual screening 13 U/L 15-[address] [facility] Thin prep Papanicolaou smear with manual screening 6 -[address] [facility] Urine blood detectionon 08-22 RBC Ql (U) 150 /ul Negative [facility] RBC Ql (U) 0 SEEN /hpf 0-[address] [facility] Urine clarityon 09-05-2022 Clarity (U) Clear Clear [facility] Urine color determinationon 09-05-2022 Color (U) Yellow Yellow [facility] Urine glucose detectionon Glucose Ql (U) Normal mg/dl Normal [facility] Urine leukocyte esterase det ection by dipstickon 09-05-2022 Leukocyte esterase Test strip Ql (U) Negative Negative [facility] Urine pHon 09-05-2022 pH (U) 5.0 [pH] 5.0 - 8.[address] [facility] Urine sediment bacteria coun t by microscopy (number/high power field)on 09-05-2022 Bacteria LM.HPF (Urine sed) [#/Area] 0 /[HPF] None Seen [facility] Urine specific gravity measu rementon 09-05-2022 Specific gravity (U) [Rel density] 1.025 1.002-1.[address] 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. Former smoker (V15.82) (Z87.891) started age 14yrs quit age 36 No advance directives (V49.89) (Z78.9) (more content not included)... Normal [employer] Tobacco Screening.on 022 Tobacco use status [facility] b) No [facility] Work Phone: Absolute lymphocyte counton 10-31-2021 Lymphocytes Auto (Unsp spec) [#/Vol] 2.47 10*3/uL 0.83-4.[address] [facility] Work Phone: Absolute reticulocyte counto n 10-31-2021 Reticulocytes (Bld) [#/Vol] 0.00 10*3/uL 0-[address] [facility] Work Phone: Basophil percentageon 2021 Basophil percentage 3.0 mg/dL 2.5-4.9 [facility] Work Phone: Bilirubin [Mass/Vol] 0.40 mg/dL 0.20-1.00 [facility] Work Phone: Comment on above: For patients on eltr ombopag therapy, use of Dimension [place] TBIL is not recommended. Chloride [Moles/Vol] 104 mmol/L 98-107 [facility] Work Phone: Cholesterol [Mass/Vol] 145 mg/dL <200 [facility] Work Phone: Comment on above: <200 mg/dL Desirable 200-240 mg/dL Borderline >240 mg/dL High Risk Glucose [Mass/Vol] 85 mg/dL 74-106 [facility] Work Phone: Neutrophils (Bld) [#/Vol] 3.1 10*3/uL 2.0-7.[address] [facility] Work Phone: Potassium [Moles/Vol] 3.9 mmol/L 3.5-5.1 [facility] Work Phone: Protein [Mass/Vol] 7.6 g/dL 6.4-8.2 [facility] Work Phone: Sodium [Moles/Vol] 137 mmol/L 136-145 [facility] Work Phone: Triglyceride [Mass/Vol] 96 mg/dL <199 [facility] Work Phone: Comment on above: The drugs N-Acetylcy steine and Metamizole may falsely depress this assay.Serum Triglycerides Reference Interval Normal <150 mg/dL Borderline high 150 - 199 mg/dL High 200 - 499 mg/dL Very High > or = 500 mg/dL WBC (Bld) [#/Vol] 6.3 10*3/uL 4.4-11.0 [facility] Work Phone: [phone] Blood erythrocytes count (nu mber/volume)on 10-31-2021 RBC (Bld) [#/Vol] 4.43 10*6/uL 4.2-5.4 [facility] Work Phone: [phone] Blood hemoglobin measurement (mass/volume)on 10-31-2021 Hemoglobin (Bld) [Mass/Vol] 13.7 g/dL 12.0-15.[address] [facility] Work Phone: [phone] Blood platelet mean volumeon 10-31-2021 Platelet mean volume (Bld) [Entitic vol] 9.3 fL 6.2-12.[address] [facility] Work Phone: [phone] Determination of erythrocyte mean corpuscular volume (MCV)on 10-31-2021 MCV (RBC) [Entitic vol] 92.8 fL 81-99 [facility] Work Phone: [phone] Direct bilirubinon Bilirubin.direct [Mass/Vol] 0.08 mg/dL 0.00-0.[address] [facility] Work Phone: [phone] Hematocrit Auto (Bld) [Volum e fraction]on 10-31-2021 Hematocrit (Bld) [Volume fraction] 41.1 % 37-[address] [facility] Work Phone: [phone] Laboratory - Chemistry and C hemistry - challengeon 10-31-2021 ALP [Catalytic activity/Vol] 51 U/L 45-[address] [facility] Work Phone: [phone] ALT [Catalytic activity/Vol] 22 U/L 13-[address] [facility] Work Phone: [phone] Cholesterol.total/Choles terol in HDL [Mass ratio] 3.40 {ratio} [facility] Work Phone: [phone] CO2 [Moles/Vol] 28.0 mmol/L 21.0-32.[address] [facility] Work Phone: [phone] Globulin (S) [Mass/Vol] 3.6 g/dL 2.2-4.2 [facility] Work Phone: Urea nitrogen/Creatinine [Mass ratio] 14.1 mg/mg 10-[address] [facility] Work Phone: Laboratory - Hematology and Cell countson 10-31-2021 Erythrocyte distribution width (RBC) [Entitic vol] 43.7 fL 35.1-43.[address] [facility] Work Phone: [phone] Erythrocyte distribution width (RBC) [Ratio] 12.9 % 11.6-14.[address] [facility] Work Phone: [phone] MCH (RBC) [Entitic mass] 30.9 pg 27.0-32.[address] [facility] Work Phone: [phone] Nucleated RBC/100 WBC (Bld) [Ratio] 0 % 0-[address] [facility] Work Phone: [phone] MCHC Auto (RBC) [Mass/Vol]on 10-31-2021 MCHC (RBC) [Mass/Vol] 33.3 g/dL 32-36 [facility] Work Phone: No Panel Informationon 10-31 Estimated GFR (MDRD) Amer 116 mL/min >[address] [facility] Work Phone: Comment on above: GFR Calc Estimated GFR (MDRD) Non-Af Amer 96 mL/min >[address] [facility] Work Phone: [phone] Comment on above: Non- GFR Calc Platelets bldon 10-31-2021 Platelets (Bld) [#/Vol] 324 10*3/uL 150-[address] [facility] Work Phone: Segmented neutrophils/100 WB C Auto (Bld)on 10-31-2021 Segmented neutrophils/100 WBC (Bld) 50.1 % 47-[address] [facility] Work Phone: [phone] Serum or plasma albumin domenica urement (mass/volume)on 10-31-2021 Albumin [Mass/Vol] 4.0 g/dL 3.2-5.0 [facility] Work Phone: [phone] Serum or plasma albumin/glob ulin mass ratioon 10-31-2021 Albumin/Globulin [Mass ratio] 1.1 {ratio} 0.9-2.[address] [facility] Work Phone: Serum or plasma calcium domenica urement (mass/volume)on 10-31-2021 Calcium [Mass/Vol] 8.9 mg/dL 8.5-10.1 [facility] Work Phone: Serum or plasma cholesterol in HDL measurement (mass/volume)on 10-31-2021 Cholesterol in HDL [Mass/Vol] 43 mg/dL >[address] [facility] Work Phone: Comment on above: The drugs N-Acetylcy steine and Metamizole may falsely depress this assay. Reference Range HDL <40 mg/dL Low HDL Cholesterol HDL >or= 60 mg/dL High HDL Cholesterol Serum or plasma cholesterol in VLDL measurement (mass/volume)on 10-31-2021 Cholesterol in VLDL [Mass/Vol] 19 mg/dL 5-[address] [facility] Work Phone: Serum or plasma creatinine m easurement (mass/volume)on 10-31-2021 Creatinine [Mass/Vol] 0.71 mg/dL 0.55-1.02 [facility] Work Phone: Comment on above: The validity of the calculated GFR & GFRAA in patients over 70 years has not been determined. Clinical correlation is essential. Serum or plasma low density lipoprotein (LDL) cholesterol measurement (mass/volume)on 10-31-2021 Cholesterol in LDL [Mass/Vol] 83 mg/dL 0-[address] [facility] Work Phone: Serum or plasma urea nitroge n measurement (mass/volume)on 10-31-2021 Urea nitrogen [Mass/Vol] 10 mg/dL 7-[address] [facility] Work Phone: Serum or plasma uric acid me asurement (mass/volume)on 10-31-2021 Urate [Mass/Vol] 3.9 mg/dL 2.6-6.[address] [facility] Work Phone: Comment on above: The drugs N-Acetylcy steine and Metamizole may falsely depress this assay. Thin prep Papanicolaou smear with manual screeningon 10-31-2021 Thin prep Papanicolaou smear with manual screening 14 U/L 15-[address] [facility] Work Phone: Thin prep Papanicolaou smear with manual screening 5 5-[address] [facility] Work Phone: Thin prep Papanicolaou smear with manual screening 148 U/L 84-[address] [facility] Work Phone: Clinical Summary: Юлия simms 05-31-2021 MC75 OP Visit Invalid Interpretation Code [facility] Work Phone: Office Visit: visi t with practice, Rm: 43on 05-31-2021 NEGATED: Highlighted rowMRI (magnetic resonance imaging) history of the lumbar spine on 04/07/[address] [facility] Invalid Interpretation Code [facility] Work Phone: NEGATED: Highlighted rowxray history of the lumbar spine on 01/31/[address] [facility] Invalid Interpretation Code [facility] Work Phone: Clinical Lists Update: Prelo ad Extendedon 05-30-2021 Tobacco smoking status Tobacco smoking status In valid Interpretation Code [facility] Work Phone: Office Visit (Family Lida cisneros)on 04-20-2021 Follow-up visit Diagnoses/Problems Low back pain (724.2) (M54.50) worsening- Reviewed MRI findings Referral to [facility] per patient request Orders Low back pain [...] She would like to go to [facility]. Follow up 1 month. 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 Former smoker (V15.82) (Z87.891) started age 14yrs [...] Vital Signs Recorded: 20Apr2021 02:12PM Heart Rate71 Dtzyxsuv571 Dtqqyptzd34 Height5 ft 5.98 in Ifrmkw644 lb 14.32 oz BMI Ryuzpnzcqq13.79 kg/m2 BSA Calculated1.85 Tobacco Useb) No Physical [...] Apr 20 2021 4:59PM EST (Author) Normal [employer] Tobacco Screening.on 022 Tobacco use status [facility] b) No [facility] Work Phone: Office Visit ([facility])on 03-06-2021 Follow-up visit Diagnoses/Problems Abnormal bone xray (793.7) (R93.7) Low back pain (724.2) (M54.50) Orders Abnormal bone xray, Low back pain MRI L Spine without Contrast; Status:Hold For - Scheduling; Requested for:[id number]; Radiologist to Determine Optimal Study : Y Does the patient have a Cochlear Implant, Pacemaker, Defibrilator, Pacing Wire, Brain Aneurysm Clip, Implanted Nerve or Bone Graft Simulator, Implanted Breast Tissue Auto Leasing Manager, Glucose Monitor, or Neulasta Device? : No Is the patient or breast feeding? : No What are the patient's signs and symptoms? : LS spine pain and abnormal XR Low back pain Follow-Up, Recheck Outpatient Follow-up 6 weeks and as needed Status: Hold For - Scheduling Requested for: [id number] Provider Impressions Low back was improving a little, but then worsened again after baking cookies. XRay from [place] reviewed. Will pursue MRI at [place]. Pt. will do her own precert. She will check to see if S1 could be included, Would consider referral to [facility] depending on further PT and MRI results. Follow up 6 weeks to recheck, sooner worsens/changes/concerns 04/11/21 - MRI Lumbar spine from [place] done 04/07/21 with mild deg changes without [...] slightly less sensation XRay LS done at [place]. Report reviewed from [facility]. IMPRESSION: Grade 2 anterior listhesis of L5 on S1 with spondylolysis of the pars interarticularis of the L5 vertebrae. Disc space narrowing with subchondral sclerosis at the L5-S1 level. Discussed how her back pain is affecting her life. Had to take something to go to sleep last night. Often wakes up with pain. Would be interested in MRI. Will get done at [place]. If needing to see back surgeon would like to go to [facility]. 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. Former smoker (V15.82) (Z87.891) started age 14yrs [...] Tablet Probiotic CAPS Vitals Vital Signs Recorded: [id number] 02:00PM Heart Rate76 Xrdbhahu639 Ufpxdomuw35 Height5 ft 6 in Ymygmo340 lb 2 oz BMI Stbwzkynes25.01 kg/m2 BSA Calculated1.82 Tobacco Useb) No Physical [...] Apr 11 2021 3:34PM EST (Author) Normal [employer] Tobacco Screening.on 021 Tobacco use status [facility] b) No [facility] Work Phone: Office Visit (Family Medicin e)on 01-30-2021 Follow-up visit Diagnoses/Problems Low back [...] this time. [facility] Provider Impressions Has had low back pain for the past 2 months Will get XRay with bending view and start Naproxen PT at [place] since she works there. 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. Former smoker (V15.82) (Z87.891) started age 14yrs [...] Vital Signs Recorded: 30Jan2021 08:39AM Heart Rate68 Yziifkwh461 Vvlypyawe87 Height5 ft 6 in Mkucbp687 lb 9 oz BMI Ycyfkelfbe67.59 kg/m2 BSA Calculated1.81 Tobacco Useb) No Physical [...] Screeningon 2020 [facility] 20[facility] Work Phone: [employer] Screening 20/25 [facility] Work Phone: Tobacco Screening.on 021 Tobacco use status [facility] b) No M [facility] Work Phone: Vital Signs Date Time Vital Sign Value Performing Clinician Facility 12-06-2024 13:28-0400 Body temperature 97.7 [degF] Dr. Sonia Perez MD Work Phone: [facility] 12-06-2024 13:28-0400 Diastolic blood pressure 75 mm[Hg] Dr. Sonia Perez MD Work Phone: [facility] 12-06-2024 13:28-0400 Heart rate 74 /min Dr. Sonia Perez MD Work Phone: [facility] 12-06-2024 13:28-0400 Respiratory rate 16 /min Dr. Sonia Perez MD Work Phone: [facility] 12-06-2024 13:28-0400 SaO2% (BldA) [Mass fraction] 100 % Dr. Sonia Perez MD Work Phone: 8(771)868-373452 [place] [address] 12-06-2024 13:28-0400 Systolic blood pressure 103 mm[Hg] Dr. Sonia Perez MD Work Phone: 8(876)190-448752 [place] [address] 12-06-2024 12:29-0400 Body height 167.[address] Sonia Perez MD Work Phone: 7(148)948-012752 [place] [address] 12-06-2024 12:29-0400 Body mass index (BMI) [Ratio] 23.9 kg/m2 Dr. Sonia Perez MD Work Phone: 9(915)479-520952 [place] [address] 12-06-2024 12:29-0400 Body weight 67.[address] Sonia Perez MD Work Phone: 7(547)125-234452 [place] [address] 10-21-2024 15:35-0400 Body temperature 98.5 [degF] Dr. Sonia Perez MD Work Phone: 1(111)808-107052 [place] [address] 10-21-2024 15:35-0400 Diastolic blood pressure 76 mm[Hg] Dr. Sonia Perez MD Work Phone: 3(076)261-490452 [place] [address] 10-21-2024 15:35-0400 Heart rate 85 /min Dr. Sonia Perez MD Work Phone: 6(333)190-435352 [place] [address] 10-21-2024 15:35-0400 Respiratory rate 17 /min Dr. Sonia Perez MD Work Phone: 2(937)314-680452 [place] [address] 10-21-2024 15:35-0400 SaO2% (BldA) [Mass fraction] 98 % Dr. Sonia Perez MD Work Phone: 5(848)980-088052 [place] [address] 10-21-2024 15:35-0400 Systolic blood pressure 136 mm[Hg] Dr. Sonia Perez MD Work Phone: 9(063)802-226352 [place] [address] 10-13-2024 11:24-0400 Body height 167.6 cm Leticia Mega MINER.NIBBLER OPERATOR Work Phone: [facility] 10-13-2024 11:24-0400 Body mass index (BMI) [Ratio] 24.05 kg/m2 Leticia Mega MINER.NIBBLER OPERATOR Work Phone: [facility] 10-13-2024 11:24-0400 Body weight 67.6 kg Leticia Mega MINER.NIBBLER OPERATOR Work Phone: [facility] 10-12-2024 11:33-0400 Body temperature 98.7 [degF] Dr. Sonia Perez MD Work Phone: [facility] 10-12-2024 11:33-0400 Diastolic blood pressure 78 mm[Hg] Dr. Sonia Perez MD Work Phone: [facility] 10-12-2024 11:33-0400 Heart rate 78 /min Dr. Sonia Perez MD Work Phone: [facility] 10-12-2024 11:33-0400 Respiratory rate 16 /min Dr. Sonia Peerz MD Work Phone: [facility] 10-12-2024 11:33-0400 SaO2% (BldA) [Mass fraction] 98 % Dr. Sonia Perez MD Work Phone: [facility] 10-12-2024 11:33-0400 Systolic blood pressure 138 mm[Hg] Dr. Sonia Perez MD Work Phone: [facility] 10-12-2024 08:39-0400 Body height 167.[address] Sonia Perez MD Work Phone: [facility] 10-12-2024 08:39-0400 Body mass index (BMI) [Ratio] 24.2 kg/m2 Dr. Sonia Perez MD Work Phone: [facility] 10-12-2024 08:39-0400 Body weight 68.[address] Sonia Perez MD Work Phone: 2(654)755-971952 [place] [address] 09-22-2024 10:50-0400 Body height 167.6 cm Pacc 3 Work Phone: [facility] 09-22-2024 10:50-0400 Body mass index (BMI) [Ratio] 23.84 kg/m2 Pacc 3 Work Phone: [facility] 09-22-2024 10:50-0400 Body temperature 97.3 [degF] Pacc 3 Work Phone: [facility] 09-22-2024 10:50-0400 Body weight 67 kg Pacc 3 Work Phone: [facility] 09-22-2024 10:50-0400 Diastolic blood pressure 79 mm[Hg] Pacc 3 Work Phone: [facility] 09-22-2024 10:50-0400 Heart rate 79 /min Pacc 3 Work Phone: [facility] 09-22-2024 10:50-0400 Respiratory rate 16 /min Pacc 3 Work Phone: [facility] 09-22-2024 10:50-0400 SaO2% (BldA) [Mass fraction] 100 % Pacc 3 Work Phone: [facility] 09-22-2024 10:50-0400 Systolic blood pressure 125 mm[Hg] Pacc 3 Work Phone: [facility] 08-30-2024 14:37-0400 Body height 170.2 cm Sonia Perez MD Work Phone: [facility] 08-30-2024 14:37-0400 Body mass index (BMI) [Ratio] 23.49 kg/m2 Sonia Perez MD Work Phone: [facility] 08-30-2024 14:37-0400 Body weight 68.04 kg Sonia Perez MD Work Phone: [facility] 08-30-2024 14:37-0400 Diastolic blood pressure 86 mm[Hg] Sonia Perez MD Work Phone: [facility] 08-30-2024 14:37-0400 Heart rate 86 /min Sonia Perez MD Work Phone: [facility] 08-30-2024 14:37-0400 SaO2% (BldA) [Mass fraction] 98 % Sonia Perez MD Work Phone: [facility] 08-30-2024 14:37-0400 Systolic blood pressure 142 mm[Hg] Sonia Perez MD Work Phone: [facility] 06-30-2024 14:15-0400 Body height 167.[address] Sonia Perez MD Work Phone: [facility] 06-30-2024 14:09-0400 Body mass index (BMI) [Ratio] 25.2 kg/m2 Dr. Sonia Perez MD Work Phone: [facility] 06-30-2024 14:09-0400 Body weight 70.[address] Sonia Perez MD Work Phone: 2(214)856-700852 [place] [address] 06-30-2024 14:09-0400 Diastolic blood pressure 72 mm[Hg] Dr. Sonia Perez MD Work Phone: [facility] 06-30-2024 14:09-0400 Systolic blood pressure 118 mm[Hg] Dr. Sonia Perez MD Work Phone: [facility] 03-12-2024 14:32-0500 Body height 169.9 cm Ashlyn Rm MD Work Phone: [facility] 03-12-2024 14:32-0500 Body mass index (BMI) [Ratio] 24.32 kg/m2 Ashlyn Rm MD Work Phone: [facility] 03-12-2024 14:32-0500 Body weight 70.22 kg Ashlyn Rm MD Work Phone: [facility] 03-12-2024 14:32-0500 Diastolic blood pressure 84 mm[Hg] Ashlyn Rm MD Work Phone: [facility] 03-12-2024 14:32-0500 Heart rate 86 /min Ashlyn Rm MD Work Phone: [facility] 03-12-2024 14:32-0500 SaO2% (BldA) [Mass fraction] 98 % Ashlyn Rm MD Work Phone: [facility] 03-12-2024 14:32-0500 Systolic blood pressure 130 mm[Hg] Ashlyn Rm MD Work Phone: [facility] 08-28-2023 14:33-0400 Body height 169.9 cm Sonia Perez MD Work Phone: [facility] 08-28-2023 14:33-0400 Body mass index (BMI) [Ratio] 23.23 kg/m2 Sonia Perez MD Work Phone: [facility] 08-28-2023 14:33-0400 Body weight 67.09 kg Sonia Perez MD Work Phone: [facility] 08-28-2023 14:33-0400 Diastolic blood pressure 82 mm[Hg] Sonia Perez MD Work Phone: [facility] 08-28-2023 14:33-0400 Heart rate 73 /min Sonia Perez MD Work Phone: [facility] 08-28-2023 14:33-0400 SaO2% (BldA) [Mass fraction] 98 % Sonia Perez MD Work Phone: [facility] 08-28-2023 14:33-0400 Systolic blood pressure 114 mm[Hg] Sonia Perez MD Work Phone: [facility] 07-14-2023 10:55-0400 Body temperature 97.2 [degF] Dr. Reed Herrera Work Phone: [facility] 07-14-2023 10:55-0400 Diastolic blood pressure 68 mm[Hg] Dr. Reed Herrera Work Phone: [facility] 07-14-2023 10:55-0400 Heart rate 56 /min Dr. Reed Herrera Work Phone: [facility] 07-14-2023 10:55-0400 Respiratory rate 16 /min Dr. Reed Herrera Work Phone: [facility] 07-14-2023 10:55-0400 SaO2% (BldA) [Mass fraction] 98 % Dr. Reed Herrera Work Phone: [facility] 07-14-2023 10:55-0400 Systolic blood pressure 102 mm[Hg] Dr. Reed Herrera Work Phone: [facility] 07-14-2023 06:39-0400 Body height 167.[address] Reed Herrera Work Phone: [facility] 07-14-2023 06:39-0400 Body mass index (BMI) [Ratio] 23.5 kg/m2 Dr. Reed Herrera Work Phone: [facility] 07-14-2023 06:39-0400 Body weight [address] Reed Herrera Work Phone: [facility] 05-30-2023 14:10-0500 Body height 167.[address] Reed Herrera Work Phone: [facility] 05-30-2023 14:10-0500 Body mass index (BMI) [Ratio] 23.9 kg/m2 Dr. Reed Herrera Work Phone: [facility] 05-30-2023 14:10-0500 Body temperature 98 [degF] Dr. Reed Herrera Work Phone: [facility] 05-30-2023 14:10-0500 Body weight 67.[address] Reed Herrera Work Phone: [facility] 05-30-2023 14:10-0500 Diastolic blood pressure 87 mm[Hg] Dr. Reed Herrera Work Phone: [facility] 05-30-2023 14:10-0500 Heart rate 92 /min Dr. Reed Herrera Work Phone: [facility] 05-30-2023 14:10-0500 Respiratory rate 18 /min Dr. Reed Herrera Work Phone: [facility] 05-30-2023 14:10-0500 SaO2% (BldA) [Mass fraction] 100 % Dr. Reed Herrera Work Phone: [facility] 05-30-2023 14:10-0500 Systolic blood pressure 146 mm[Hg] Dr. Reed Herrera Work Phone: [facility] 01-28-2023 14:11-0500 Body height 167.[address] Octavio Rodríguez Work Phone: [facility] 01-28-2023 14:03-0500 Body mass index (BMI) [Ratio] 24.9 kg/m2 Dr. Octavio Rodríguez Work Phone: [facility] 01-28-2023 14:03-0500 Body weight 70.[address] Octavio Rodríguez Work Phone: [facility] 01-28-2023 14:03-0500 Diastolic blood pressure 80 mm[Hg] Dr. Octavio Rodríguez Work Phone: [facility] 01-28-2023 14:03-0500 Systolic blood pressure 124 mm[Hg] Dr. Octavio Rodríguez Work Phone: [facility] 12-26-2022 07:35-0400 Body temperature 98.9 [degF] No Primary Care Physician [facility] 12-26-2022 07:35-0400 Diastolic blood pressure 69 mm[Hg] No Primary Care Physician [facility] 12-26-2022 07:35-0400 Heart rate 78 /min No Primary Care Physician [facility] 12-26-2022 07:35-0400 Respiratory rate 16 /min No Primary Care Physician [facility] 12-26-2022 07:35-0400 SaO2% (BldA) [Mass fraction] 100 % No Primary Care Physician [facility] 12-26-2022 07:35-0400 Systolic blood pressure 108 mm[Hg] No Primary Care Physician [facility] 12-26-2022 06:26-0400 Body height 167.64 cm No Primary Care Physician [facility] 12-26-2022 06:26-0400 Body mass index (BMI) [Ratio] 25.6 kg/m2 No Primary Care Physician [facility] 12-26-2022 06:26-0400 Body weight 72 kg No Primary Care Physician [facility] 12-10-2022 17:23-0400 Body height 170.1 cm Estephaniateresa Swantie Other Phone: [facility] 12-10-2022 17:23-0400 Body temperature 98.24 [degF] Estephania Teofilo Other Phone: [facility] 12-10-2022 17:23-0400 Diastolic blood pressure 88 mm[Hg] Estephania Swantie Other Phone: [facility] 12-10-2022 17:23-0400 Heart rate 85 /min Estephania [place] Other Phone: [facility] 12-10-2022 17:23-0400 SaO2% (BldA) [Mass fraction] 97 % Estephania Teofilo Other Phone: [facility] 12-10-2022 17:23-0400 Systolic blood pressure 129 mm[Hg] Estephania [place] Other Phone: [facility] 10-29-2022 08:27-0400 Body height 167.6 cm Ulises HAWKINS Work Phone: [facility] 10-29-2022 08:27-0400 Body mass index (BMI) [Ratio] 27.18 kg/m2 Ulises HAWKINS Work Phone: [facility] 10-29-2022 08:27-0400 Body weight 76.39 kg Ulises Halld ATTENDANT HONOR BAR-NIBBLER OPERATOR Work Phone: [facility] 10-29-2022 08:27-0400 Diastolic blood pressure 74 mm[Hg] Ulises Tyner ATTENDANT HONOR BAR-NIBBLER OPERATOR Work Phone: [facility] 10-29-2022 08:27-0400 Heart rate 76 /min Ulises Angeles ATTENDANT HONOR BAR-NIBBLER OPERATOR Work Phone: [facility] 10-29-2022 08:27-0400 Systolic blood pressure 118 mm[Hg] Ulises Angeles ATTENDANT HONOR BAR-NIBBLER OPERATOR Work Phone: [facility] 10-01-2022 09:37-0400 Body height 167.6 cm Ulises Tyner ATTENDANT HONOR BAR-NIBBLER OPERATOR Work Phone: [facility] 10-01-2022 09:37-0400 Body mass index (BMI) [Ratio] 27.76 kg/m2 Ulises Tyner ATTENDANT HONOR BAR-NIBBLER OPERATOR Work Phone: [facility] 10-01-2022 09:37-0400 Body weight 78.02 kg Ulises Halld ATTENDANT HONOR BAR-NIBBLER OPERATOR Work Phone: [facility] 10-01-2022 09:37-0400 Diastolic blood pressure 70 mm[Hg] Ulises Tyner ATTENDANT HONOR BAR-NIBBLER OPERATOR Work Phone: [facility] 10-01-2022 09:37-0400 Heart rate 77 /min Ulises Halld ATTENDANT HONOR BAR-NIBBLER OPERATOR Work Phone: [facility] 10-01-2022 09:37-0400 Systolic blood pressure 122 mm[Hg] Ulises Tyner ATTENDANT HONOR BAR-NIBBLER OPERATOR Work Phone: [facility] 09-06-2022 15:16-0400 Body height 167.64 cm No Primary Care Physician [facility] 09-06-2022 15:16-0400 Body mass index (BMI) [Ratio] 28.8 kg/m2 No Primary Care Physician [facility] 09-06-2022 15:16-0400 Body weight 81.19 kg No Primary Care Physician [facility] 09-06-2022 15:16-0400 Diastolic blood pressure 91 mm[Hg] No Primary Care Physician [facility] 09-06-2022 15:16-0400 Heart rate 71 /min No Primary Care Physician [facility] 09-06-2022 15:16-0400 SaO2% (BldA) [Mass fraction] 98 % No Primary Care Physician [facility] 09-06-2022 15:16-0400 Systolic blood pressure 138 mm[Hg] No Primary Care Physician [facility] 06-25-2022 08:58-0400 Body height 167.6 cm Ulises Reynoso ATTENDANT HONOR BAR-NIBBLER OPERATOR Work Phone: [facility] 06-25-2022 08:58-0400 Body mass index (BMI) [Ratio] 28.07 kg/m2 Ulises Reynoso ATTENDANT HONOR BAR-NIBBLER OPERATOR Work Phone: [facility] 06-25-2022 08:58-0400 Body weight 78.88 kg Ulises Reynoso ATTENDANT HONOR BAR-NIBBLER OPERATOR Work Phone: [facility] 06-25-2022 08:58-0400 Diastolic blood pressure 80 mm[Hg] Ulises Reynoso ATTENDANT HONOR BAR-NIBBLER OPERATOR Work Phone: [facility] 06-25-2022 08:58-0400 Heart rate 75 /min Ulises Reynoso ATTENDANT HONOR BAR-NIBBLER OPERATOR Work Phone: [facility] 06-25-2022 08:58-0400 Systolic blood pressure 114 mm[Hg] Ulises Reynoso ATTENDANT HONOR BAR-NIBBLER OPERATOR Work Phone: [facility] 05-03-2022 16:03-0500 Body height 167.64 cm No Primary Care Physician [facility] 05-03-2022 16:03-0500 Body temperature 98.2 [degF] No Primary Care Physician [facility] 05-03-2022 16:03-0500 Diastolic blood pressure 82 mm[Hg] No Primary Care Physician [facility] 05-03-2022 16:03-0500 Heart rate 76 /min No Primary Care Physician [facility] 05-03-2022 16:03-0500 Respiratory rate 18 /min No Primary Care Physician [facility] 05-03-2022 16:03-0500 SaO2% (BldA) [Mass fraction] 99 % No Primary Care Physician [facility] 05-03-2022 16:03-0500 Systolic blood pressure 110 mm[Hg] No Primary Care Physician [facility] 05-03-2022 15:52-0500 Body temperature 98 [degF] [facility] 05-03-2022 15:52-0500 Diastolic blood pressure 78 mm[Hg] [facility] 05-03-2022 15:52-0500 Heart rate 105 /min [facility] 05-03-2022 15:52-0500 Respiratory rate 16 /min [facility] 05-03-2022 15:52-0500 SaO2% (BldA) [Mass fraction] 99 % [facility] 05-03-2022 15:52-0500 Systolic blood pressure 124 mm[Hg] [facility] 04-23-2022 16:12-0500 Body temperature 98.8 [degF] [facility] 04-23-2022 16:12-0500 Diastolic blood pressure 80 mm[Hg] [facility] 04-23-2022 16:12-0500 Heart rate 127 /min [facility] 04-23-2022 16:12-0500 Respiratory rate 16 /min [facility] 04-23-2022 16:12-0500 SaO2% (BldA) [Mass fraction] 98 % [facility] 04-23-2022 16:12-0500 Systolic blood pressure 130 mm[Hg] [facility] 01-22-2022 11:09-0400 Body height 167.64 cm [facility] Work Phone: 01-22-2022 11:02-0400 Body mass index (BMI) [Ratio] 28.4 kg/m2 ULISES REYNOSO [facility] 01-22-2022 11:02-0400 Body weight 79.94 kg ULISES REYNOSO [facility] 01-22-2022 11:02-0400 Diastolic blood pressure 72 mm[Hg] ULISES REYNOSO [facility] 01-22-2022 11:02-0400 Systolic blood pressure 130 mm[Hg] ULISES [facility] 11-21-2021 10:52-0400 Body height 167.64 cm Ulises Halld Work Phone: [facility] Work Phone: 11-21-2021 10:52-0400 Body mass index (BMI) [Ratio] 27.16 kg/m2 Ulises Halld Work Phone: [facility] Work Phone: 11-21-2021 10:52-0400 Body surface area Derived from formula 1.86 m2 Ulises Halld Work Phone: [facility] Work Phone: 11-21-2021 10:52-0400 Body weight 76.32 kg Ulises Reynoso Work Phone: [facility] Work Phone: 11-21-2021 10:52-0400 Diastolic blood pressure 64 mm[Hg] Ulises Halld Work Phone: [facility] Work Phone: 11-21-2021 10:52-0400 Heart rate 58 /min Ulises Halld Work Phone: [facility] Work Phone: 11-21-2021 10:52-0400 Systolic blood pressure 122 mm[Hg] Ulises Halld Work Phone: [facility] Work Phone: 04-20-2021 14:12-0500 Body height 167.6 cm Elvia Art Work Phone: [facility] Work Phone: 04-20-2021 14:12-0500 Body mass index (BMI) [Ratio] 26.79 kg/m2 Elvia Art Work Phone: [facility] Work Phone: 04-20-2021 14:12-0500 Body surface area Derived from formula 1.85 m2 Elvia Art Work Phone: [facility] Work Phone: 04-20-2021 14:12-0500 Body weight 75.25 kg Elvia Art Work Phone: [facility] Work Phone: 04-20-2021 14:12-0500 Diastolic blood pressure 64 mm[Hg] Elvia Art Work Phone: [facility] Work Phone: 04-20-2021 14:12-0500 Heart rate 71 /min Elvia Art Work Phone: [facility] Work Phone: 04-20-2021 14:12-0500 Systolic blood pressure 110 mm[Hg] Elvia Art Work Phone: [facility] Work Phone: 03-06-2021 14:00-0500 Body height 167.64 cm Elvia Art Work Phone: [facility] Work Phone: 03-06-2021 14:00-0500 Body mass index (BMI) [Ratio] 26.01 kg/m2 Elvia Art Work Phone: [facility] Work Phone: 03-06-2021 14:00-0500 Body surface area Derived from formula 1.82 m2 Elvia Art Work Phone: [facility] Work Phone: 03-06-2021 14:00-0500 Body weight 73.09 kg Elvia Art Work Phone: [facility] Work Phone: 03-06-2021 14:00-0500 Diastolic blood pressure 80 mm[Hg] Elvia Art Work Phone: [facility] Work Phone: 03-06-2021 14:00-0500 Heart rate 76 /min Elvia Art Work Phone: [facility] Work Phone: 03-06-2021 14:00-0500 Systolic blood pressure 128 mm[Hg] Elvia Art Work Phone: [facility] Work Phone: 10-31-2020 10:48-0400 Body height 167.64 cm Elvia Art Work Phone: [facility] Work Phone: 10-31-2020 10:48-0400 Body mass index (BMI) [Ratio] 25.82 kg/m2 Elvia Art Work Phone: [facility] Work Phone: 10-31-2020 10:48-0400 Body surface area Derived from formula 1.82 m2 Elvia Art Work Phone: [facility] Work Phone: 10-31-2020 10:48-0400 Body weight 72.57 kg Elvia Art Work Phone: [facility] Work Phone: 10-31-2020 10:48-0400 Diastolic blood pressure 64 mm[Hg] Elvia Art Work Phone: [facility] Work Phone: 10-31-2020 10:48-0400 Heart rate 67 /min Elvia Art Work Phone: [facility] Work Phone: 10-31-2020 10:48-0400 Systolic blood pressure 110 mm[Hg] Elvia Art Work Phone: [facility] Work Phone: NEGATED: Highlighted [id number] 15:14-0500 Body height 168.91 cm Cecily Thomas AT [facility] Work Phone: NEGATED: Highlighted [id number] 15:14-0500 Body height 169 cm Cecily Thomas AT [facility] Work Phone: NEGATED: Highlighted [id number] 15:14-0500 Body mass index (BMI) [Ratio] 25.69 kg/m2 Cecily Thomas AT [facility] Work Phone: NEGATED: Highlighted [id number] 15:14-0500 Body weight 73.03 kg Cecily Thomas AT [facility] Work Phone: NEGATED: Highlighted [id number] 15:14-0500 Body weight 73 kg Cecily Thomas AT [facility] Work Phone: Encounters Encounter Date Encounter Type Care Provider Facility Start: 02-03-2025 ambulatory Liz Iraheta NP Facil ity:[facility] Start: 01-14-2025 End: 01-17-2025 ambulatory LETICIA AYOUB Facility:[facility] Start: 12-29-2024 End: 12-29-2024 ambulatory Liz Iraheta NP Facility:[facility] Start: 12-06-2024 End: 12-06-2024 Admission to same day surgery center Dr. David Posey MD -[facility] Start: 12-06-2024 End: 12-06-[address] Sonia Perez MD Work Phone: -[facility] Start: 10-28-2024 End: 10-28-2024 ambulatory LETICIA AYOUB Facility:[facility] Start: 10-25-2024 End: 10-25-[address] Sonia Perez MD Work Phone: -Radiology [facility] Start: 10-25-2024 End: 10-25-[address] David Posey MD -Radiology [facility] Work Phone: Start: 10-25-2024 End: 10-25-2024 ambulatory David Posey Facility:[facility] Start: 10-21-2024 End: 10-21-2024 Patient encounter procedure Mario Avalos [place] -[facility] Work Phone: Start: 10-21-2024 End: 10-21-[address] Sonia Perez MD Work Phone: -Now [facility] Start: 10-13-2024 End: 10-13-2024 Patient encounter procedure Leticia Ayoub ATTENDANT [employer]NIBBLER OPERATOR Work Phone: Colorectal Surgery Comment on above: Infection following procedure; Abscess of anal and rectal regions; Encounter for surgical aftercare following surgery on the digestive system Start: 10-13-2024 End: 10-13-2024 ambulatory LETICIA AYOUB Facility:[facility] Start: 10-12-2024 End: 10-12-2024 Telephone encounter Clare Mobley DO Work Phone: Colorectal Surgery Comment on above: Patient Update Start: 10-12-2024 End: 10-12-2024 Emergency department patient visit Dr. Sonia Perez MD Work Phone: -Emergency Department Work Phone: Start: 10-11-2024 End: 10-11-2024 Telephone encounter Clare Mobley DO Work Phone: Colorectal Surgery Comment on above: Patient Question Start: 10-08-2024 End: 10-08-2024 ambulatory CLARE MOBLEY Facility:[facility] Start: 09-22-2024 End: 09-22-2024 Admission to [facility] 3 Work Phone: Pre Anesthesia Start: 09-22-2024 End: 09-22-2024 Anesthesia consultation [place] [id number] Work Phone: Pre Anesthesia Comment on above: Post-operative nause a and vomiting (Primary Dx); Pre-op evaluation; Gastroesophageal reflux disease without esophagitis; History of hydronephrosis Start: 09-22-2024 End: 09-22-2024 Preprocedural examination done [place] [id number] Work Phone: [facility] Work Phone: Start: 09-22-2024 End: 09-22-2024 ambulatory [facility] Facility:[facility] Start: 09-22-2024 Encounter for other preprocedural examination [facility] Start: 09-10-2024 ambulatory [facility] Facility:[facility] Start: 09-10-2024 End: 09-10-2024 Subsequent hospital visit by physician [facility] Qb1 (I-Stat) Radiology Comment on above: Rectal prolapse [K62 .3] Start: 09-08-2024 Registered Referred HEALTH RIS K ASSESSMENT -Employee Health Start: 09-08-2024 ambulatory Health Risk Assessment Facility:[facility] Start: 08-30-2024 End: 08-30-2024 Patient encounter procedure Sonia Perez MD Work Phone: [facility] Work Phone: Start: 08-30-2024 End: 08-30-2024 Periodic preventive med est patient 40-64yrs Sonia Perez MD Work Phone: [facility] Comment on above: Annual physical exam (Primary Dx); Chronic bilateral low back pain with right-sided sciatica; Chronic right SI joint pain; Screening, lipid; Screening for diabetes mellitus Start: 08-30-2024 End: 08-30-2024 ambulatory SONIA Sagastume [facility] Ambulatory Start: 08-30-2024 End: 08-30-2024 Encounter for general adult medical examination without abnormal findings SONIA Sagastume [facility] Ambulatory Start: 08-10-2024 End: 08-11-2024 Admission to same day surgery center Leticia Ayoub APRN.CNP Work Phone: Colorectal Surgery Comment on above: Manometry Start: 08-10-2024 End: 08-11-2024 Patient encounter procedure Leticia Ayoub APRN.NIBBLER OPERATOR Work Phone: Colorectal Surgery Start: 08-10-2024 End: 08-11-2024 ambulatory LETICIA AYOUB Facility:[facility] Start: 06-30-2024 End: 06-30-2024 Patient encounter procedure Liz Iraheta PM HEAD COOK-C -[facility] Work Phone: Start: 06-30-2024 End: 06-30-[address] Sonia Perez MD Work Phone: [facility] Work Phone: Start: 06-30-2024 End: 06-30-2024 ambulatory Liz Iraheta PM HEAD COOK Facility:[facility] Start: 04-12-2024 End: 07-12-2024 Transcribe Orders Unknown Practice A Work Phone: [facility] Urogynecology Comment on above: Rectocele (Primary D x) Start: 04-03-2024 Encounter for other preprocedural examination Octavio [facility] Start: 03-12-2024 End: 03-12-2024 Office outpatient visit 15 minutes Ashlyn Rm MD Work Phone: [facility] Comment on above: Lesion of tongue (Pr imary Dx) Start: 03-12-2024 End: 03-12-2024 ambulatory ASHLYN RM [facility] Ambulatory Start: 03-10-2024 End: 03-10-2024 Patient encounter procedure Octavio Rodríguez DO -Laboratory, [facility] Pavilion Start: 03-10-2024 End: 03-10-2024 Patient encounter procedure Octavio Rodríguez DO -[facility] Work Phone: Start: 03-10-2024 End: 03-10-2024 ambulatory Sonia Perez Facility:[facility] Start: 03-10-2024 End: 03-10-2024 ambulatory Octavio Rodríguez Facility:[facility] Start: 03-01-2024 End: 03-01-2024 ambulatory Octavio Rodríguez Facility:[facility] Start: 08-28-2023 End: 08-28-2023 Patient encounter procedure Sonia Perez MD Work Phone: [facility] Work Phone: Start: 08-28-2023 End: 08-28-2023 Periodic preventive med est patient 40-64yrs Sonia Perez MD Work Phone: [facility] Comment on above: Annual physical exam (Primary Dx); Gastroesophageal reflux disease without esophagitis Start: 07-14-2023 Non-patient / Non-visit Dr. Castro Work Phone: [facility] Start: 07-14-2023 End: 07-14-2023 Admission to same day surgery center Dr. Reed Herrera Work Phone: [facility]-Surgical Day Care Start: 07-14-2023 End: 07-14-[address] Reed Herrera Work Phone: [facility] Work Phone: Start: 06-02-2023 End: 06-02-[address] Reed Herrera Work Phone: [facility] Work Phone: Start: 06-02-2023 End: 06-02-[address] Reed Herrera Work Phone: [facility]-Laboratory, [facility] Start: 05-30-2023 End: 05-30-[address] Reed Herrera Work Phone: [facility] Work Phone: Start: 05-23-2023 End: 05-23-2023 ambulatory No Primary Care Physician [facility] Work Phone: Start: 05-23-2023 End: 05-23-2023 Patient encounter procedure No Primary Care Physician [facility]-Nuclear Medicine, [facility] Work Phone: Start: 05-06-2023 End: 05-06-2023 ambulatory ULISES REYNOSO [facility] Work Phone: Start: 05-06-2023 End: 05-06-2023 Patient encounter procedure ULISES REYNOSO [facility]-Ultrasound, [facility] Work Phone: Start: 01-28-2023 End: 01-28-[address] Octavio Rodríguez Work Phone: [facility] Work Phone: Start: 01-28-2023 End: 01-28-[address] Octavio Rodríguez Work Phone: [facility]-Laboratory, Specimen Work Phone: Start: 01-28-2023 End: 01-28-[address] Octavio Rodríguez Work Phone: [facility] Work Phone: Start: 01-20-2023 End: 01-20-[address] Octavio Rodríguez Work Phone: [facility] Work Phone: Start: 12-26-2022 Non-patient / Non-visit No [facility] Physician [facility] Start: 12-26-2022 End: 12-26-2022 Admission to same day surgery center No Primary Care Physician [facility]-Endoscopy Work Phone: Start: 12-26-2022 End: 12-26-2022 ambulatory No Primary Care Physician [facility] Work Phone: Start: 12-11-2022 End: 12-11-2022 ambulatory No Primary Care Physician [facility] Work Phone: Start: 12-11-2022 End: 12-11-2022 Patient encounter procedure No Primary Care Physician [facility]-Outpatient Breast Imaging Work Phone: Start: 12-10-2022 End: 12-10-2022 Emergency department patient visit [facility] Start: 10-29-2022 End: 10-29-2022 Patient encounter status Ulises Reynoso ATTENDANT HONOR BAR-NIBBLER OPERATOR Work Phone: [facility] Work Phone: Start: 10-29-2022 End: 10-29-2022 Periodic preventive med est patient 18-39 yrs Ulises Reynoso ATTENDANT HONOR BAR-NIBBLER OPERATOR Work Phone: [facility] Comment on above: Skin abnormality (Pr imary Dx); Epigastric abdominal pain; Wellness examination Start: 10-01-2022 End: 10-01-2022 Office outpatient visit 15 minutes Ulises Halld ATTENDANT HONOR BAR-NIBBLER OPERATOR Work Phone: [facility] Comment on above: Epigastric abdominal pain (Primary Dx) Start: 09-27-2022 End: 09-27-2022 ambulatory No Primary Care Physician [facility] Work Phone: Start: 09-27-2022 End: 09-27-2022 Patient encounter procedure No Primary Care Physician [facility]-Nuclear Medicine, [facility] Work Phone: Start: 09-25-2022 End: 09-25-2022 ambulatory No Primary Care Physician [facility] Work Phone: Start: 09-25-2022 End: 09-25-2022 Patient encounter procedure No Primary Care Physician [facility]-Radiology, [facility] Work Phone: Start: 09-12-2022 End: 09-12-2022 ambulatory No Primary Care Physician [facility] Work Phone: Start: 09-12-2022 End: 09-12-2022 Patient encounter procedure No Primary Care Physician [facility]-Laboratory, [facility] Pav[facility] Start: 09-06-2022 End: 09-06-2022 Patient encounter procedure No Primary Care Physician [facility] Gastroenter[facility] Start: 09-05-2022 End: 09-05-2022 Patient encounter procedure No Primary Care Physician [facility]-Laboratory Start: 06-25-2022 End: 06-25-2022 Office outpatient visit 15 minutes Ulises Reynoso ATTENDANT HONOR BAR-NIBBLER OPERATOR Work Phone: [facility] Comment on above: Gastroesophageal ref lux disease without esophagitis (Primary Dx); Epigastric abdominal pain; Indigestion Start: 06-20-2022 End: 06-20-2022 ambulatory No Primary Care Physician [facility] Work Phone: Start: 06-20-2022 End: 06-20-2022 Patient encounter procedure No Primary Care Physician [facility]-Cat Scan, [facility] Start: 06-07-2022 End: 06-07-2022 ambulatory No Primary Care Physician [facility] Work Phone: Start: 06-07-2022 End: 06-07-2022 Patient encounter procedure No Primary Care Physician [facility]-Radiology, [facility] Start: 05-17-2022 End: 05-17-2022 Patient encounter procedure No Primary Care Physician [facility] Start: 05-03-2022 End: 05-03-2022 Patient encounter procedure ULISES [facility] Start: 04-23-2022 End: 04-23-2022 ambulatory ULISES [facility] Work Phone: Start: 04-23-2022 End: 04-23-2022 Patient encounter procedure ULISES [facility] Start: 01-25-2022 End: 01-25-2022 ambulatory ULISES [facility] Work Phone: Start: 01-25-2022 End: 01-25-2022 Discharged Recurring ULISES [facility]-Physical Therapy Start: 01-22-2022 End: 01-22-2022 Patient encounter procedure ULISES ANGELES [facility] Start: 11-21-2021 Office outpatient vi sit 15 minutes Ulises Reynoso Work Phone: [facility] Work Phone: Start: 11-21-2021 Patient encounter procedure Ulises Reynoso Work Phone: [facility] Work Phone: Start: 11-01-2021 End: 11-01-2021 Patient encounter procedure [facility]-Outpatient Breast Imaging Start: 10-31-2021 Registered Referred [facility]-Laboratory Start: 04-20-2021 Office outpatient vi sit 25 minutes Elvia Art Work Phone: [facility] Work Phone: Start: 03-07-2021 AUDIT Elvia garcía Work Phone: [facility] Work Phone: Start: 03-06-2021 Office outpatient vi sit 15 minutes Elvia Art Work Phone: [facility] Work Phone: Start: 10-31-2020 Periodic preventive med est patient 40-64yrs Elvia Art Work Phone: [facility] Work Phone: Start: 11-18-2017 End: 11-19-2017 Patient encounter Estephania Brent Red Facility:[facility] Start: 03-04-2017 End: 03-05-2017 Patient encounter Estephania Red Facility:[facility] Procedures Date Procedure Procedure Detail Performing Clinician Start: 12-06-2024 Local anesthetic sac ral epidural block Dr. Sonia Perez MD Work Phone: Start: 12-06-2024 Injection of spinal epidural space Dr. Sonia Perez MD Work Phone: Start: 10-28-2024 Follow-up visit Follow Up JAMEE AYOUB Start: 10-25-2024 Complete x-ray serie s of lumbosacral spine including bending views Dr. Sonia Perez MD Work Phone: Start: 10-12-2024 CT of pelvis with contrast Dr. Sonia Perez MD Work Phone: Start: 10-12-[address] Sonia Perez MD Work Phone: Start: 09-10-2024 Radiologic exam colo n single contrast study Clarejaime Mobley DO Work Phone: Start: 09-08-2024 Serum inorganic phos phate measurement Dr. Sonia Perez MD Work Phone: Start: 08-10-2024 [facility]ULT [place] [employer] Leticia Ayoub APRN.NIBBLER OPERATOR Work Phone: Start: 03-01-2024 Colonoscopy Ashlyn Rm [...] 05-31-2021 End: 06-04-2021 Docrev cur meds by jess piper Jasen medeiros DO Work Phone: Start: 05-31-2021 End: 06-04-2021 No doc of pain Jasen Smart DO Work Phone: Start: 05-31-2021 End: 06-04-2021 Patient encounter procedure Jasen Zelaya r DO Work Phone: Start: 08-05-2019 Mammography Ulises Reynoso ATTENDANT HONOR BAR-NIBBLER OPERATOR Work Phone: Anal sphincterotomy Elvia Art Work [...] for Adults (1 - 1-dose 75+ series) [employer] Start: 03-01-2034 Screening for malign ant neoplasm of colon [facility] Start: 2029 Zoster Vaccines (1 of 2) Zoste r Vaccines (1 of 2) [facility] Start: 09-09-2027 Diabetes Screening Diabetes Screenin [facility] Start: 09-01-2025 End: 09-01-2025 Patient encounter procedure 09/01/2025 3:20 PM EDT Office Visit [place] [address] [address] Sonia Perez MD [facility] [address] [address] [facility] Start: 08-31-2025 Yearly Adult Physical Yearly Adult P hysical [facility] Start: 03-01-2025 Screening for malign ant neoplasm of colon [facility] Start: 01-10-2025 End: 01-10-2025 Patient encounter procedure 01/10/2025 11:00 AM EDT Office Visit Colorectal Surgery [address] [address] Clare Mobley DO [address] [place], [place] [id number] POST OP Colorectal Surgery Comment on above: POST OP Start: 12-06-2024 Injection using fluoroscopic guidance [facility] Start: 12-06-2024 Patient discharge [facility] Start: 11-22-2024 Influenza vaccination [facility] Start: 11-08-2024 End: 11-08-2024 Admission to same day surgery center 11/08/2024 3:30 PM EDT [facility] Colorectal Surgery [address] [address] Clare Mobley DO [address] [place], [place] [id number] POST OP Colorectal Surgery Comment on above: POST OP Start: 10-28-2024 End: 10-28-2024 Follow-up encounter 10/28/2024 11:00 AM EDT [facility] Colorectal Surgery [address] [address] Leticia Ayoub APRN.NIBBLER OPERATOR [address] [place] [address] 2 week follow up Colorectal Surgery Comment on above: 2 week follow up Start: 10-12-2024 [facility] Start: 10-08-2024 End: 10-08-2024 Admission to same day surgery center [facility] Comment on above: EXAM UNDER ANESTHESI A RECTAL Start: 10-08-2024 End: 10-08-2024 Anrct xm surg req anes general spi/edrl dx [facility] Start: 10-08-2024 End: 10-08-2024 Sigmoidoscopy flx dx w/collj spec br/wa if pfrmd [facility] Start: 10-08-2024 Subsequent hospital visit by physician [facility] Comment on above: Rectal prolapse [K62 .3] Start: 10-08-2024 End: 10-08-2024 Us transrectal [facility] Start: 09-22-2024 End: 09-22-2024 Admission to same day surgery center 09/22/2024 11:00 AM EDT PAT Pre Anesthesia [address] [place] [address] 3, Pacc Watson [address] [place] [address] surgery date 10/08 Pre Anesthesia Comment on above: surgery date 10/08 Start: 09-10-2024 End: 09-10-2024 Patient encounter procedure 09/10/2024 8:50 AM EDT Appointment Radiology [address] [place] [address] Request: XR DEFECOGRAPHY Radiology Comment on above: Request: XR DEFECOGR APHY Start: 08-30-2024 End: 08-30-2024 Patient encounter procedure [facility] Start: 08-30-2024 End: 08-30-2025 Basic metabolic 2000 panel - Serum or Plasma Basic metabolic panel Lab Routine Screening for diabetes mellitus Expected: 08/30/2024 (Approximate), Expires: 08/30/2025 [facility] Work Phone: Comment on above: Expected: 08/30/2024 (Approximate), Expires: 08/30/2025 Start: 08-30-2024 End: 08-30-2025 Lipid 1996 panel - Serum or Plasma Lipid Panel Lab Routine Screening, lipid Expected: 08/30/2024 (Approximate), Expires: 08/30/2025 [facility] Service Area Work Phone: Comment on above: Expected: 08/30/2024 (Approximate), Expires: 08/30/2025 Start: 08-28-2024 Yearly Adult Physical Yearly Adult P hysical [facility] Start: 01-20-2024 Diabetes Screening Diabetes Screenin g [facility] Start: 01-20-2024 Lipid panel Lipid Screening [facility] Start: 01-20-2024 Screening for malign ant neoplasm of colon [facility] Start: 11-23-2023 COVID-19 Vaccine ( season) COVID-19 Vaccine () [facility] Start: 11-23-2023 Influenza vaccination Influenza Vacc ine (#1) [facility] Start: 10-30-2023 End: 10-30-2023 Patient encounter procedure 10/30/2023 1:00 PM EDT Office Visit [facility] [address] [place] [phone] TynerUlises, ATTENDANT HONOR BAR-NIBBLER OPERATOR [address] [facility], [address] [place] [address] [facility] Start: 07-14-2023 Patient discharge [facility] Start: 01-28-2023 Liquid based cervica l cytology screening [facility] Start: 12-26-2022 Egd insert guide wir e dilator passage esophagus EGD GUIDE WIRE INSERTION [facility] Start: 12-26-2022 Egd transoral biopsy single/multiple EGD BIOPSY SINGLE/MULTIPLE [facility] Start: 12-26-2022 Patient discharge [facility] Start: 11-22-2022 COVID-19 Vaccine ( season) COVID-19 Vaccine ( season) [facility] Start: 11-22-2022 Influenza vaccination [facility] Start: 10-29-2022 End: 10-29-2022 Patient encounter procedure 10/29/2022 8:30 AM EDT Office Visit [facility] [address] [place] [address] Ulises Reynoso, ATTENDANT HONOR BAR-NIBBLER OPERATOR [address] [facility], [address] [place] [address] [facility] Start: 10-01-2022 End: 10-01-2022 Patient encounter procedure 10/01/2022 9:30 AM EDT Office Visit [facility] [address] [place] [id number] Ulises Reynoso, ATTENDANT HONOR BAR-NIBBLER OPERATOR [address] [facility], [address] [place] [address] [facility] Start: 06-25-2022 End: 06-26-2023 CBC panel - Blood by Automated count CBC Lab Routine Epigastric abdominal pain Expected: 06/25/2022 (Approximate), Expires: 06/26/2023 [facility] Service Area Work Phone: Comment on above: Expected: 06/25/2022 (Approximate), Expires: 06/26/2023 Start: 06-25-2022 End: 06-26-2023 Comprehensive metabolic 2000 panel - Serum or Plasma Comprehensive Metabolic Panel Lab Routine Epigastric abdominal pain Expected: 06/25/2022 (Approximate), Expires: 06/26/2023 [facility] Work Phone: Comment on above: Expected: 06/25/2022 (Approximate), Expires: 06/26/2023 Start: 06-25-2022 End: 06-26-2023 Urinalysis complete panel - Urine Urinalysis with Reflex Microscopic Lab Routine Epigastric abdominal pain Expected: 06/25/2022 (Approximate), Expires: 06/26/2023 [facility] Work Phone: Comment on above: Expected: 06/25/2022 (Approximate), Expires: 06/26/2023 Start: 04-20-2021 FUV, Provider: Elvia Art, Status: Pen, Time: 2:00 PM [facility] Work Phone: Start: 08-04-2020 Screening for malign ant neoplasm of breast Mammogram [facility] Start: 2019 Screening for malign ant neoplasm of breast [facility] Start: 2009 Screening for malign ant neoplasm of cervix [facility] Start: 07-11-2005 DTaP/Tdap/Td Vaccine s (6 - Tdap) DTaP/Tdap/Td Vaccines (6 - Tdap) [facility] Start: 07-11-2005 Urine microalbumin profile DTaP,Tdap,Td Vaccine (6 - Tdap) [facility] Start: 01-20-2000 Screening for malign ant neoplasm of cervix [facility] Start: 1998 Hepatitis B Vaccine (1 of 3 - 19+ 3-dose series) Hepatitis B Vaccine (1 of 3 - 19+ 3-dose series) [facility] Start: 1998 Hepatitis B Vaccines (1 of 3 - 19+ 3-dose series) Hepatitis B Vaccines (1 of 3 - 19+ 3-dose series) [facility] Start: 1997 Anxiety Screening Anxiety Screening [facility] Start: 1997 Depression Screening Depression Scre ing [facility] Start: 1997 Diabetes mellitus screening Diabetes Screening [facility] Start: 1997 [facility]atitis [facility] Start: 1997 HIV screening HIV Screening [facility] Start: 1991 Depression Screening Depression Scre ing [facility] Start: 1979 COVID-19 Vaccine (#1) COVID-19 Vacci ne (#1) [facility] Start: 1979 Hepatitis B Vaccines (1 of 3 - 3-dose series) Hepatitis B Vaccines (1 of 3 - 3-dose series) [facility] Start: 1979 HIV screening HIV Screening [facility] Start: 1979 Lipid panel Lipid Panel [facility] Start: 1979 Screening for malign ant neoplasm of colon [facility] Start: 1979 Yearly Adult Physical Yearly Adult P hysical [facility] ADULT [place] [employer] ADULT [place] [employer]ECTAL MANOMETRY Endoscopy Routine Rectal prolapse Other constipation 08/10/2024 [facility] Work Phone: MG Breast - bilatera l Screening [facility] OUTSIDE PROCEDURE SCAN OUTSIDE P ROCEDURE SCAN Procedures Ordered: 04/12/2024 [facility] Comment on above: Ordered: 04/12/2024 Path report.final Dx Spec [facility] Patient Education Managing Post- Op Pain at Home [facility] Work Phone: Patient referral [facility] Work Phone: Radiography of esophagus [facility] Radionuclide gastric emptying study [facility] Immunizations Immunization Date Immunization Notes Care Provider Alex yanes 02-06-2023 influenza, injectabl e, quadrivalent, preservative free ULISES REYNOSO [facility] 02-06-2023 influenza virus vaccine, unspecified formulation Ashlyn Rm MD Work Phone: [facility] Work Phone: 02-11-2022 influenza, injectabl e, quadrivalent, preservative free No Primary Care Physician [facility] 02-11-2022 influenza, seasonal, injectable [facility] 01-24-2021 influenza, injectabl e, quadrivalent, preservative free No Primary Care Physician [facility] 01-24-2021 influenza, seasonal, injectable [facility] 01-24-2021 influenza, seasonal, injectable, preservative free Elvia Art Work Phone: [facility] Work Phone: 12-29-2019 influenza, injectabl e, quadrivalent, preservative free No Primary Care Physician [facility] 12-29-2019 influenza, seasonal, injectable [facility] 12-17-2018 influenza, injectabl e, quadrivalent, preservative free No Primary Care Physician [facility] 12-17-2018 influenza, seasonal, injectable [facility] 01-21-2018 influenza, injectabl e, quadrivalent, preservative free No Primary Care Physician [facility] 01-21-2018 influenza, seasonal, injectable [facility] 01-21-2018 influenza, seasonal, injectable, preservative free Ashlyn Rm MD Work Phone: [facility] Work Phone: 12-18-2016 influenza, injectabl e, quadrivalent, preservative free No Primary Care Physician [facility] 12-18-2016 influenza, seasonal, injectable [facility] 02-12-2016 influenza, injectabl e, quadrivalent, preservative free No Primary Care Physician [facility] 02-12-2016 influenza, seasonal, injectable [facility] 07-10-2005 hepatitis B vaccine, pediatric or pediatric/adolescent dosage [facility] Work Phone: [facility] Work Phone: 07-10-2005 TD(adult) unspecifie d formulation [facility] Work Phone: [facility] Work Phone: 06-12-2005 hepatitis B vaccine, pediatric or pediatric/adolescent dosage [facility] Work Phone: [facility] Work Phone: 07-05-1991 measles, mumps and rubella virus vaccine [facility] Work Phone: [facility] Work Phone: 06-19-1983 diphtheria, tetanus toxoids and acellular pertussis vaccine, unspecified formulation [facility] Work Phone: [facility] Work Phone: 06-19-1983 poliovirus vaccine, inactivated [facility] Work Phone: [facility] Work Phone: 08-23-1981 diphtheria, tetanus toxoids and acellular pertussis vaccine, unspecified formulation [facility] Work Phone: [facility] Work Phone: 07-06-1980 measles, mumps and rubella virus vaccine Elvia M Kaelyn Work Phone: [facility] Work Phone: 1980 diphtheria, tetanus toxoids and pertussis vaccine [employer]o [employer] Work Phone: [facility] Work Phone: 1979 poliovirus vaccine, inactivated [employer]viacleo [employer] Work Phone: [facility] Work Phone: 1979 diphtheria, tetanus toxoids and pertussis vaccine Elviacleo [employer] Work Phone: [facility] Work Phone: 1979 poliovirus vaccine, unspecified formulation Nipomo Mitesh Art Work Phone: [facility] Work Phone: 1979 diphtheria, tetanus toxoids and pertussis vaccine Nipomo Mitesh Art Work Phone: [facility] Work Phone: 1979 poliovirus vaccine, unspecified formulation Nipomo Mitesh Sharper Work Phone: [facility] Work Phone: Payers Date Payer Category Payer Self-pay [id number] 2023 Commercial [facility] [employer] [id number] 2023 Private Health Insurance [id number] 2022 Unknown [id number] 2022 Managed Care (Private) 1.2.8 [id number] 2022 Unknown [id number] 2017 Unknown 1979 Unknown [id number]. 1244 1979 Unknown [id number]. 1244 Unknown [id number] Unknown [facility] [id number] Unknown [id number] [id number]. 462 Unknown [id number] 2.16.840.1.437265.3.579.2. 462 Unknown [id number] 2.16.840.1.209135.3.579.2. 462 Unknown [id number] 2.16.840.1.061726.3.579.2. 462 Unknown [id number] 2.16.840.1.315462.3.579.2. 462 Unknown [id number] 2.16.840.1.342372.3.579.2. 462 Unknown [id number] 2.16.840.1.184367.3.579.2. 462 Unknown [id number] 2.16.840.1.183754.3.579.2. 462 Unknown [id number] 2.16.840.1.132018.3.579.2. 462 Unknown [id number] 2.16.840.1.927721.3.579.2. 462 Unknown [id number] 2.16.840.1.686272.3.579.2. 462 Unknown [id number] 2.16.840.1.853016.3.579.2. 462 Unknown [id number] 2.16.840.1.858731.3.579.2. 462 Social History Date Type Detail Facility Start: 06-25-2022 End: 08-10-2024 Former smoker Former smoker [facility] Work Phone: Comment on above: started age 14yrs qu it age 36; [employer] at [facility].; Start: 03-18-2021 End: 07-02-2023 Assertion Unknown if ever smoked [facility] Work Phone: Start: 1980 Sex Assigned At Female W [facility] Start: 10-30-2019 Occasional [facility] Start: 10-30-2019 None [facility] Start: 10-27-2019 Non-smoker [facility] Start: 06-25-2022 Tobacco smoking status NHIS Never smoked tobacco [facility] Start: 06-25-2022 End: 08-28-2023 Tobacco use and exposure Smokeless tobacco non-user [facility] Work Phone: Start: 1980 Sex Assigned At Not on file [facility] Work Phone: Start: 06-25-2022 End: 08-10-2024 Gender identity Not on file [facility] Work Phone: Start: 06-15-2022 End: 08-30-2024 Exposure to SARS-CoV-2 (event) Not sure [facility] Start: 08-28-2023 End: 12-02-2024 Tobacco smoking status NHIS Ex-smoker [facility] Start: 01-01-2017 History of tobacco use Current smoker [facility] Work Phone: Start: 03-24-2016 History of tobacco use Cigarette Smoker [facility] Work Phone: History of tobacco use Passive smoker [facility] Work Phone: Start: 08-28-2023 End: 08-30-2024 Alcoholic beverage intake Current drinker of alcohol (finding) [facility] Work Phone: Start: 08-28-2023 Alcohol Comment social [facility] Work Phone: Start: 10-22-2021 End: 07-05-2024 Sex Female (finding) [facility] Start: 08-10-2024 Tobacco use and exposure Former smokeless tobacco user [facility] Start: 08-10-2024 End: 10-13-2024 Alcoholic beverage intake Current non-drinker of alcohol (finding) [facility] National Score (1-100), lower number is lower risk 58 [facility] Start: 08-10-2024 Tobacco Comment 2017 Quit Vaping [facility] Start: 08-09-2024 Gender identity Identifies as female gender (finding) [facility] NEGATED: Highlighted rowStart: 05-31-2021 End: 05-31-2021 Employment detail Employment detail [facility] Work Phone: NEGATED: Highlighted row [facility] Medical Equipment Procedure Code Equipment Code Equipment Original Text Equipment Identifier Dates Total cholecystectomy with exploration of common bile duct CLIP,HEMOLOCK MED RODY FDA Start: 07-14-2023 Total cholecystectomy with exploration of common bile duct CLIP,HEMOLOCK MED RODY FDA Start: 07-14-2023 Total cholecystectomy with exploration of common bile duct CLIP,HEMOLOCK BAYLEE FINE FDA Start: 07-14-2023 Total cholecystectomy with exploration of common bile duct DRESSING,FIBRILLA R 1X2 1960 FDA Start: 07-14-2023 Total cholecystectomy with exploration of common bile duct CLIP,HEMOLOKAEL MED RODY FDA Start: 07-14-2023 Total cholecystectomy with exploration of common bile duct CLIP,HEMOLOCK MED RODY FDA Start: 07-14-2023 Total cholecystectomy with exploration [...] DRESSING,FIBRILLA R 1X2 1960 FDA Start: 07-14-2023 Goals Date Patient Goal Desired Activity /State Mental Status Date Assessment Result Facility 12-06-2024 Cognitive function Voice/Name [facility] Work Phone: 10-12-2024 Cognitive function Level Of Cons ciousness Awake;Alert;Appropriate [facility] Work Phone: 07-14-2023 Cognitive function Touch/Shaking [facility] Work Phone: 07-14-2023 Cognitive function Patient Orien tation Person;Place;Time [facility] Work Phone: 12-26-2022 Cognitive function Touch/Shaking [facility] Work Phone: Clinical Notes 03-05-2021 to 01-14-2025 Note Date & Type Note Facility 01-14-2025 Note HNO ID: [id number] Author: LETICIA AYOUB APRN.NIBBLER OPERATOR Service: ? Author Type: Nurse Practitioner Type: Progress Notes Filed: 01/23/2025 14:52 Note Text: COLORECTAL SURGERY Follow-up January 14, 2025 Recording using Lighting by [employer] software for draft documentation of the visit was discussed with the patient/authorized inside technical sales representative; all questions welcomed and answered. Patient/authorized inside technical sales representative agreed to proceed Chief complaint: Post surgical visit HPI: The patient is a 44-year-old female presenting for follow-up of chronic constipation and pelvic floor dysfunction following exam under anesthesia and mucopexy with Dr. Mobley on 10/08/24 for prior rectal prolapse repair. She reports persistent difficulty with bowel movements, characterized by hard stools, difficulty initiating defecation, and a sensation of incomplete evacuation. She often feels unable to defecate until the urge is very strong, and sometimes needs to return to the toilet multiple times to achieve a sense of emptying. She takes magnesium glycinate at night, which has improved her constipation, and also takes fiber tablets. She reports good water intake and does not drink soda. She has not started pelvic floor physical therapy due to lack of local providers and cost barriers, but is interested in self-directed pelvic floor exercises. She underwent rectal prolapse repair in 2022, which improved her rectal closure and eliminated prior issues with mucus leakage and incontinence. She notes that the repair improved the appearance of the perineal area and provided better separation between the anus and vagina. However, she continues to experience functional difficulties with bowel movements and wishes she had pursued surgical repair earlier. Her history is notable for a traumatic episiotomy during her first childbirth at age 17, which resulted in a rectal sphincter defect that was not repaired at the time. She later underwent surgical repair in 2004, which provided some improvement but did not fully restore sphincter function. She has a history of recurrent UTIs and underwent cholecystectomy in 2023. Water intake is good. Gastrointestinal: (+) constipation, (+) difficulty initiating defecation, (+) sensation of incomplete evacuation, (-) diarrhea, (-) rectal mucus discharge, (-) fecal incontinence Musculoskeletal: (-) muscle spasms Physical Exam: Ht 167.6 cm (5' 6) Wt 67.7 kg (149 lb 4 oz) LMP 09/21/2024 (Exact Date) BMI 24.09 kg/m? General: awake, alert, no acute distress Abdominal: Soft, non-tender Anorectal: Perianal skin is intact. No erythema, tenderness, induration, or excoriation. No fissure, fistula, or external hemorrhoids. Asymmetry with bulking on the right side is noted. Digital Rectal Exam: - Anus: closed - Resting tone: Elevated with spasm noted - Squeeze tone: Normal - Process Engineering Manager Present: Yes Process Engineering Manager present: Yes, Laura Restifo Assessment Medical Decision Making: Assessment AND Diagnosis: Laisha Romero is a 44 year old female with chronic constipation and pelvic floor dysfunction following exam under anesthesia and mucopexy with Dr. Mobley on 10/08/24 for prior rectal prolapse repair. Data Reviewed: Tests AND Documents Reviewed/ordered: Review of prior notes from anorectal manometery and OR note. I have discussed Laisha Romero's treatment plan and/or results with pt. Treatment plan: 1. Constipation, unspecified constipation type (K59.00) 2. Pelvic floor dysfunction in female (M62.89) 3. Obstructive defecation (HCC) (K56.41) Chronic constipation and obstructive defecation with persistent difficulty initiating and completing bowel movements, despite some improvement with magnesium glycinate and fiber supplementation. Exam findings consistent with pelvic floor dysfunction. - Continue magnesium glycinate at bedtime and fiber supplementation. - Provided education on pelvic floor strengthening exercises and Kegels; recommended online resources (pelvicrehab.com, pelvicguru.com, womenshealthapta.org, and The Vagina Prepress Operator). - Advised to avoid heavy lifting and continue adequate hydration. - Encouraged to seek pelvic floor physical therapy if local options become available. 4. History of surgical procedure (Z98.890) Status post pelvic floor repair with improved continence and aesthetics, but persistent functional issues. - Continue current management and monitor for further changes. 5. History of herpes zoster (Z86.19) Prior episode of herpes zoster with facial rash, now resolved with residual scarring. - No further intervention required at this time. Risk of morbidity, mortality and/or complications of treatment plan: brooks AYOUB APRN.CNP Digestive Disease [place] Colorectal [facility] [address] [place] [address] [facility] 12-06-2024 Consult note [facility] 12-06-2024 Procedure note [facility] 12-06-2024 Consult note [facility] 10-28-2024 Note HNO ID: [id number] Author: LETICIA AYOUB APRN.CNP Service: ? Author Type: Nurse Practitioner Type: Progress Notes Filed: 10/28/2024 18:10 Note Text: COLORECTAL SURGERY VIRTUAL VISIT FOLLOW UP I have communicated my name and active licensure. The patient's identity and physical location were verified at the time of this visit. Either the patient or their legal inside technical sales representative has been informed of the risks and benefits of -- and alternatives to -- treatment through a remote evaluation and consents to proceed with the evaluation remotely. I had a virtual visit with Ms. Romero today for follow up of undergoing exam under anesthesia, flexible sigmoidoscopy, mucopexy , perianal block, on 10/08/24. . UPDATED HISTORY: Laisha Romero is a 44 year old female being seen for post op follow up apt. Had shingles outbreak recently with diarrhea. Then sinus infection. Now getting back on track with bowel habits. Off antbx. Medrol dose pack ordered and has finished. previously on antivirals now off (Valtrex 7 days). Daily BM, soft, Laser treatments for Rosacea, her shingles is limited to left below the nose. Rectal drainage resolved. Sometimes still feels stool stuck not completely emptying. Clusters at times. no prolapse no urinary issues. feeling much better overall. most of complaints from last visit are resolved. NO fever or chills, no n/v. no abdominal pains. PHYSICAL FINDINGS OF NOTE: Alert and oriented x 3. rash on left side of face/nose Looks well nourished. Pleasant mood. Medical Decision Making: Assessment Assessment AND Diagnosis: Laisha Romero is a 44 year old female 3 weeks status post exam under anesthesia, flexible sigmoidoscopy, mucopexy , perianal block on 10/08/24. . Data Reviewed: Tests AND Documents Reviewed/ordered: Review of prior operative reports I have discussed Laisha Romero's treatment plan and/or results with pt. Treatment plan: Softer foods for 4 more weeks. Miralax to soften stools Metamucil to firm stools. No heavy lifting over 10 lbs for 4 more weeks. Begin PFPT after 6 weeks post op Risk of morbidity, mortality and/or complications of treatment plan: low I spent a total of 20 minutes on the date of the service which included preparing to see the patient, [id number] patient care, completing clinical documentation, obtaining and/or reviewing separately obtained history, performing a medically appropriate examination, counseling and educating the patient/family/caregiver, and ordering medications, tests, or procedures. [facility] 10-25-2024 Radiology Diagnostic study note [facility] Imaging Services [address] [place] [address] L/S Spine Comp/w Bending Views MR#: [id number] Acct: [id number] Name: LAISHA ROMERO ANGEL LUIS Rep #: [id number] : 1980 F 44 From: Homer Mejia MD PCP: Dr. Sonia Perez MD Status: REG CLI Study:L/S Spine Comp/w Bending Views Date of Exam: 10/25/24 Exam# [id number] Ordering Dr: David Posey MD PROCEDURE: L/S SPINE COMP/W BENDING VIEWS 10/25/2024 REASON FOR EXAM: POSTLAMINECTOMY SYNDROME, NOT ELSEWHERE CLASSIFIED TECHNIQUE: 6 view lumbar spine series including lateral flexion and extension and bilateraloblique views Again seen is bilateral L5 spondylolysis, with stable grade 2 anterolisthesis ofL5 upon S1. No significant dynamic instability is seen on lateral flexion and extension views. Mild degenerative changes of the lumbar spine are noted, with probable mild L4-L5 disc narrowing. Lower lumbar posterior facet hypertrophy is also noted. Minimal sacroiliac joint degenerative changes are also seen. COMPARISON: CT examination of 06/20/2022. RAD/L/S Spine Comp/w Bending Views IMPRESSION: Interbody cage with screws at the L5-S1 level noted, alignment unchanged. Interval removal of posterior fixation device and bilateral pedicle screws. Reading Location: [place] [address] CC: Dr. David Posey MD; Dr. Sonia Perez MD ~ Photogrammetry Airplane Pilot: Signed [facility] 10-21-2024 Evaluation note Diagnosis Onset Date Resolution Shingles acute October 21 3:21pm [facility] Work Phone: 1(661) 621-135407-23-2025 Instructions* Patient Instructions* Leticia Ayoub APRN.CNP - 10/13/2024 12:08 PM [...] December for further evaluation. documented in this encounterC[facility] History of Present illness Narrative* Leticia Ayoub APRN.CNP - 10/13/2024 11:30 AM EDT COLORECTAL SURGERY PELVIC FLOOR POST OP VISIT Laisha Romero is a 44 year old female who returns for a post-operative visit after undergoing exam under anesthesia, flexible sigmoidoscopy, mucopexy , perianal block, on 10/08/24. Patient was seen at her local ED yesterday and was put on oral Flagyl and Cefdinir. Patient reportsswelling on the right side of her abdomen, [...] put on oral Flagyl and Cefdinir. Patient reportsswelling on the right side. She got a CT scan done, unable to pull the records from this visit. Scan showed inflammation per patient, ED Dr. Wanted to julia the area however patient denied and wantedto try antibiotics first. The patient returned to [...] stool getting stuck in the rectum. She beganhaving bowel movements on Friday, with approximately five soft stools that day, and about four on Friday before contacting the nurse. She observes that her stool may be mixed with blood and mucus, and describes the appearance as weird looking. She reports a burning sensation and concern for possible urinary tract infection after using a sitzbath, which she began on Friday night. She does not take narcotics, preferring to avoid constipation. She recalls not experiencing a similar odor after prior reconstructive surgery (sphincter bulking), and expresses embarrassment about the current odor, but is relieved that it has improved with treatment. She lives in [place], approximately an hour [place] half away, [...] not completely evacuating and must return to thetoilet multiple times prior to feeling empty. Do [...] non-tender without masses or hernias. lap sites arewell, and perianal wound Is without evidence for [...] 13, 2024 8:32 AM documented in this encounterC[facility]25 NoteHNO ID: [id number] Author: LETICIA AYOUB APRN.GARY Service: ? Author [...] has improved with treatment. She lives in [place], approximately an hour and a half away, [...] is 5 days sta (more content not included)...[facility]07-22-2025 Hospital Discharge instructions Additional Instructions Blood work white count normal at 9. Your CT pelvis no collection seen. You have tenderness in swelling right perianal area. You are being treated for proctitis. Take antibiotic as prescribed. Follow-up with your surgeon for reevaluation.[facility] Work Phone: 1(260) 722-942007-22-2025 Radiology Diagnostic study note [facility] Imaging Services [address] [place] [address] Pelvis WITH IV Contrast MR#: [id number] Acct: [id number] Name: LAISHA ROMERO Rep #: [id number] : 1980 F 44 From: Sylvia Vance MD PCP: Dr. Sonia Perez MD Status: REG ER Study:Pelvis WITH IV Contrast Date of Exam: 10/12/24 Exam# [id number] Ordering Dr: Milton Vance DO EXAM: CT [...] Colonic diverticulosis without acute diverticulitis. Reading Location: [facility] CC: Dr. Sonia Perez MD; Dr. Milton Vance DO ~ Photogrammetry Airplane Pilot: Signed [facility]07-22-2025 Telephone encounter Note* Telephone Encounter - Velma Wei RN - 10/12/2024 10:03 AM EDT See response in MyChart communication that patient sent. Velma Wei RN [facility]07-22-2025 Miscellaneous Notes* Telephone Encounter - Vlema Wei RN - 10/12/2024 10:03 AM EDT See response in MyChart communication that patient sent. Velma Wei RN * Telephone Encounter - Jazzy Sweeney - 10/12/2024 8:13 AM EDT Laisha Romero [phone], experiencing rectal pain, burning with urination along with foul odor. documented in this encounterC[facility]07-[facility]25 Telephone encounter Note * Telephone Encounter - Jazzy Sweeney - 10/12/2024 8:13 AM EDT Laisha Romero [phone], experiencing rectal pain, burning with urination along with foul odor. [facility] Work Phone: 1(234) 551-539707-21-2025 Telephone encounter Note* Telephone Encounter - Velma Wei RN - 10/11/2024 1:43 PM EDT SPECIALTY CARE COORDINATION FOLLOW-UP NOTE Provider Action/FYI [...] odor. She was offered an appointment with [facility] today to assess but she is unable to make it to [place]. She is very tearful and not sure how to proceed. She has noted some brownish/red tingned drainage but no fevers. recommended that she send us a photo of the area she feels is swollen and we can pass information on to Dr. Mobley. CC also recommended patient try sitz baths to help with hygiene and comfort, will send her photo ofsitz bath in a MyChart message as she was unaware of what that is. CC also let patient know that one of our [facility] COOK's can see her this week if she wants to come in. CC let patient know if she has significant drainage, fevers, chills then she should present to the ED for evaluation. Concerns: Foul smell from bottom Brand Marketing Coordinator plan for next outreach: Recommendations: Patient send photo in MyChart of area in question. Use sitz bath TID and after bowel movement Present to ED if she has increased drainage, fevers, chill. Will follow up after discussing with Dr. Mobley Signature Velma Wei RN October 11, 2024 [facility] [facility]07-21-2025 Miscellaneous Notes* Telephone Encounter - Velma Wei RN - 10/11/2024 1:43 PM EDT SPECIALTY CARE COORDINATION FOLLOW-UP NOTE Provider Action/FYI [...] odor. She was offered an appointment with PM HEAD COOK today to assess but she is unable to make it to [place]. She is very tearful and not sure how to proceed. She has noted some brownish/red tingned drainage but no fevers. CC recommended that she send us a photo of the area she feels is swollen and we can pass information on to Dr. Mobley. CC also recommended patient try sitz baths to help with hygiene and comfort, will send her photo ofsitz bath in a MyChart message as she was unaware of what that is. CC also let patient know that one of our PM HEAD COOK's can see her this week if she wants to come in. CC let patient know if she has significant drainage, fevers, chills then she should present to the ED for evaluation. Concerns: Foul smell from bottom Brand Marketing Coordinator plan for next outreach: Recommendations: Patient send photo in MyChart of area in question. Use sitz bath TID and after bowel movement Present to ED if she has increased drainage, fevers, chill. Will follow up after discussing with Dr. Leandra Wei RN October 11, 2024 * Telephone Encounter - Jazzy Sweeney - 10/11/2024 12:05 PM EDT Laisha Romero [phone], have questions concerning foul odor from bottom. documented in this encounterC[facility] Telephone encounter Note * Telephone Encounter - Jazzy Sweeney - 10/11/2024 12:05 PM EDT Laisha Jaime Romero [phone], have questions concerning foul odor from bottom. [facility] Work Phone: 1(431) 176-264907-02-2025 History and physical note* Slava Marin APRN.NIBBLER OPERATOR - 09/22/2024 11:00 AM EDT Images from the original note were not included. [facility] HISTORY AND PHYSICAL EXAMINATION SERVICE DATE: 09/22/2024 SERVICE TIME: 11:14 AM PRIMARY CARE PHYSICIAN: Sonia Garza APRN, ATTENDANT HONOR BAR Assessment Patient has the following medical conditions [...] anesthesia consultation for procedure on 10/08/2024 at [facility]. REVIEW OF SYSTEMS: General: No weight loss, [...] congenital heart defect, DVT/PE, hyperlipidemia, hypertension, recent CA, murmur/valvular heart disease, PTCA, PVD, open heart [...] or any previous visit (from the past 27671 hours). Instructions Given to Patient: Instructions located in the after visit summary. Patient given verbal and written preop instructions and voices comprehension and compliance. SIGNATURE: Slava Marin APRN.CNP PATIENT NAME: Laisha Romero DATE: September 22, 2024 TIME: 11:00 AM PAGER/CONTACT #: [facility]07-02[facility] History and physical note* Slava Marin APRN.CNP - 09/22/2024 11:00 AM EDT Images from the original note were not included. [facility] HISTORY AND PHYSICAL EXAMINATION SERVICE DATE: 09/22/2024 SERVICE TIME: 11:14 AM PRIMARY CARE PHYSICIAN: Sonia Garza APRN, ATTENDANT HONOR BAR Assessment Patient has the following medical conditions [...] anesthesia consultation for procedure on 10/08/2024 at [facility]. REVIEW OF SYSTEMS: General: No weight loss, [...] congenital heart defect, DVT/PE, hyperlipidemia, hypertension, recent CA, murmur/valvular heart disease, PTCA, PVD, open heart [...] or any previous visit (from the past 63768 hours). Instructions Given to Patient: Instructions located in the after visit summary. Patient given verbal and written preop instructions and voices comprehension and compliance. SIGNATURE: Slava Marin APRN.CNP PATIENT NAME: Laisha Romero DATE: September 22, 2024 TIME: 11:00 AM PAGER/CONTACT #: documented in this encounterCleveland Clinic [facility]07-02-2025 Instructions* Patient Instructions* Slava Marin APRN.CNP - 09/22/2024 10:55 AM EDT Images from the original note were not included. [facility] PATIENT PREOPERATIVE INSTRUCTIONS Clare Mobley DO has scheduled you for your procedure at this surgery center: [facility]: [phone] --[address], [place] [address]. Please read below carefully for your personalized [...] surgery. If you are currently using a [id number]-mmec injectable or oral medication for diabetes or weight loss such as Dulaglutide (Trulicity), Exenatide (Byetta, Bydureon), Liraglutide (Victoza, Saxenda), Semaglutide (Ozempic, Wegovy, Rybelsus), or Tirzepatide (Mounjaro), the medicine should be stopped at least 7 days before surgery. These medicines can cause food to remain in your stomach for a very longtime and increase the risks from surgery and [...] Advance Directive, please fax a copy to [phone] or email to for it to be added to your chart. If you do not have an Advance Directive, you can find the appropriate form and more information at [email or web address]. We recommend that youcomplete the Advance Directive form found on the website and bring it with you the day of your surgery. It can be witnessed and scanned into your chart that day. Slava Marin APRN.NIBBLER OPERATOR documented in this encounterCleveland Clinic [facility]06-20-2025 History of Present illness Narrative* Elvia Loza RT(R) - 09/10/2024 8:50 AM EDT Radiology Service Progress Note PATIENT NAME: Laisha Romero DATE OF SERVICE: September 10, 2024 TIME: 9:02 AM PATIENT IDENTITY VERIFICATION COMPLETED USING TWO (2) IDENTIFIERS: Name and Date of confirmedby patient verbally. FALL SCREENING: Has the patient had 2 falls in the last year or 1 fall with injury or currently using an Ambulatory Assistive Device (Walker, Cane, Wheelchair, Crutches, etc.)? No PATIENT GENDER DATA: Assigned female at . status: : No status:NO. PATIENT RELEVANT IMPLANT DATA REVIEWED: Not Applicable PATIENT PRESENTS WITH AN IMPLANTABLE OR ATTACHED MEDIA RECONCILIATION SPECIALIST: No RADIOLOGY DEPARTMENT: General X-ray: Exam(s) Completed: GI/ Procedure(s): Defecating Proctogram PERIPHERAL IV DATA: Not applicable SIGNED BY: MARCIO Eagle) September 10, 2024 9:02 AM documented in this encounterCleveland Clinic [facility]06-20-2025 NoteHNO ID: [id number] Author: ELVIA LOZA RT(R) Service: Radiology Author [...] PATIENT PRESENTS WITH AN IMPLANTABLE OR ATTACHED MEDIA RECONCILIATION SPECIALIST: No RADIOLOGY DEPARTMENT: General X-ray: Exam(s) Completed: GI/ Procedure(s): Defecating Proctogram PERIPHERAL IV DATA: Not applicable SIGNED BY: RT Shagufta(Rosalinda) September 10, 2024 9:02 [facility]06-09-2025 History of Present illness Narrative* Sonia Perez MD - 08/30/2024 2:40 PM EDT Subjective: Laisha Romero is a 44 y.o. [...] have any menstrual concerns? Yes working with senior computer specialist - Do you have any breast concerns? No - Date of last pap smear: telecommunications administrator manages - Date and results of last [...] Previously she was seeing Dr. Smart from [facility]. Review of Systems Assessment/Plan: Laisha Romero is a 44 y.o. female with a history of anxiety, low back pain who presentsto clinic today to address the following issues: [...] Read labels for calories - Use website [employer] for free calorie counting tool [...] LDL, HDL, HGBA1C The ASCVD Risk score ([place] DK, et al., 2019) failed to calculate for the following reasons: Cannot find a previous HDL lab Cannot find a previous total cholesterol lab IMAGES: No new images I spent 29 minutes in total time for this visit including all related clinical activities before, during, and after the visit excluding other billable activities/procedure time. Sonia Perez MD documented in this encounterUniversity [facility]als [facility] Work Phone: 1(274) 221-634006-09-2025 Instructions* Patient Instructions* Sonia Perez MD - 08/30/2024 2:40 PM [...] Read labels for calories - Use website [employer] for free calorie counting tool [...] (shingrix) at age 49 documented in [facility]The [facility] Work Phone: 1([phone]) 912-981504-09-2025 Evaluation note* Diagnosis Onset Date Resolution Status Admit Date Hot flashes acute June 30 2:06pm [facility] Work Phone: 1(199) 413-636312-20-2024 History of Present illness Narrative* Ashlyn Rm [...] ENT Ashlyn Rm MD documented in this encounterThe [facility] Work Phone: 1([phone]) 813-656312-20-2024 Instructions* Patient Instructions* Ashlyn Rm MD - 03/12/2024 2:40 PM EST Will refer to ENT where they should be able to visualize the area she is is describing better and determine if further testing/evaluation is needed. documented in this encounterUniversity Hospitals of [facility] Work Phone: 1([phone]) 527-606712-18-2024 Evaluation note* Diagnosis Onset Date Resolution Status Admit Date Ischemic colitis acute March 10, 2024 1:55pm Rectal prolapse acute March 10, 2024 1:55pm Rectocele acute March 10, 2024 1:55pm Hot flashes acute June 30 2:06pm [facility] Work Phone: [phone]) 292-422012-09-2024 [facility] Medical Records Department [address] [place] [address] History Physical Exam 03/01/24 0643 MR#: [id number] Acct: [id number] Name: LAISHA ROMERO ANGEL LUIS Rep #: [id number] : 1980 44 From: Octavio Friend DO PCP: Dr. Sonia Perez MD Status:[facility] Location: [place] [address] History and Physical Date of Admission: 03/01/24 [...] K59.01 - Slow transit constipation Plan: LAISHA ROMERO, is a 43 F who [...] * increase pantoprazole to 40mg PO BID [id number], then return to 20mg PO BID * sitz marker study to begin Friday, 10.4.24, KUBs ordered days 3 and 5 * call with results Orders: Orders Allergen, Food Profile 14 Today K21.00 - Gastro-esophageal reflux disease with esophagitis, without bleeding, (more content not included)...[facility]06-06-2024 History of Present illness Narrative* Sonia Perez MD - 08/28/2023 2:20 PM EDT Subjective: Laisha ROMERO is a 43 y.o. female who presents to clinic today for annual exam. Employment: - What do you do for work or school? 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 Going [...] of last pap smear: January, done in [place] - Results of last pap smear, if [...] Read labels for calories - Use website [employer] for free calorie counting tool [...] time. Sonia Perez MD documented in this encounterThe [facility] Work Phone: 1([phone]) 614-101906-06-2024 Instructions* Patient Instructions* Sonia Perez MD - [...] Read labels for calories - Use website [employer] for free calorie counting tool [...] (shingrix) at age 49 documented in this encounterThe [facility] Work Phone: 1(364) 982-813304-22-2024 Discharge summary Author Pepe Titus [facility] July 14, 2023 10:36am Note Date/Time July 14, 2023 7:2 6am [facility] Medical Records Department [address] [place] [address] Instructions for Home/Discharge Instructions 07/14/23 0726 MR#: [id number] Acct: [id number] Name: LAISHA ROMERO Rep #:[id number] : 1980 43 From: Pepe Titus MD PCP: SONIA PEREZ Status:[facility] [place] Discharge Instructions Procedure General Surgery Diet Discharge [...] Up With: Pepe Titus MD When: Call [phone] to make an appointment to be seen [...] Titus MD CC: SONIA PEREZ ~ Signed [facility] Work Phone: 1([phone]) 213-169204-22-2024 History and physical note Author Pepe Titus [facility] July 14, 2023 7:25am Note Date/Time July 14, 2023 6:2 2am [facility] Medical Records Department [address] [place] [address] History & Physical Exam 07/14/23 0621 MR#: [id number] Acct: [id number] Name: LAISHA ROMERO Rep #:[id number] : 1980 43 From: Pepe Titus MD PCP: SONIA PEREZ Status:[facility] Location: [place] [address] History and Physical Date of Admission: 07/14/23 Visit Reasons: RUQ PAIN/GALLBLADDER Chief Complaint: ruq pain/ gallbladder Marketing Data Specialist Required: No Is patient in pain?: No [...] at home: Yes 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 She had had weight gain after back [...] Skin Skin: No rash or changing moles Musc Musculoskeletal: Yes back problems; No arthritis, rheumatoid [...] acute distress Nutritional Appearance: average body habitus [facility] Head: normal to inspection Eyes General: [...] quadrant. No guarding or rebound. No mass. 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 She is aware that she will [...] a postoperative ERCP I would request Dr. Cunningham Friend if available. She has hadan opportunity to ask questions answered. We will proceed as noted. The remainder of her history and physical is constant. Pepe Titus M.D., Aimee.Jaime.SuzetteS. 07/14/23 0725 <Electronically signed by Pepe Titus MD> Cosigner Signature (if applicable): CC: Dr. Pepe Titus MD; SONIA PEREZ~ Signed [facility] Work Phone: 1([phone]) 197-944504-22-2024 Procedure [facility] 01-28-2023 NotePap Smear Specimen AdequacyNovember 2022 4:48pmComment. Satisfactory for evaluation. Endocervical and/or squamous metaplasticcells (endocervical component)are present.[facility] INTERFACED A#[id number] Health St. Elizabeth Boardman HospitalComment on above:Satisfactory for evaluation. Endocervical and/or squamous metaplasticcells (endocervical component)are present.01-28-2023 NotePap Smear Specimen AdequacyNov2022 4:48pmComment.Satisfactory for evaluation. Endocervical and/or squamous metaplasticcells (endocervical component)are present.[facility] INTER[facility]ED A#[id number] Health St. [facility] Comment on above:Satisfactory for evaluation. Endocervical and/or squamous metaplasticcells (endocervical component)are present.12-26-20[address] Procedure [address] [facility]10-05-2023 Procedure [facility] 10-29-2022 History of Present illness Narrative* Ulises Reynoso, KRISTOFER-NIBBLER OPERATOR - 10/29/2022 8:30 AM EDT Subjective Patient [...] in December. Wellness examination - Labs from [facility] reviewed -Health insurance wellness form signed Other orders - Follow Up In Primary Care - Health Maintenance; Future documented in this [facility] Work Phone: 1([phone]) 204-192807-11-2023 History of Present illness Narrative* ROSS De León - 10/01/2022 9:30 AM EDT Subjective Patient ID: Laisha Middleton is a 42 y.o. female who presents for GERD (3 month). Continues to have abdominal pain, testing has been negative, is not on any medication. Follow up december with GI They did do some autoimmune [...] Up In Primary Care documented in this [facility] Work Phone: 1([phone]) 143-449504-04-2023 History of Present illness Narrative* Ulises Reynoso, ATTENDANT HONOR BAR-NIBBLER OPERATOR - 06/25/2022 9:00 AM EDT Subjective Patient [...] stopped taking Would like referred to Dr Rodríguez in [place] Review of Systems Constitutional: Negative for activity [...] Care; Future: 3 months documented in this encounterThe [facility] Work Phone: [phone] Instructions* Patient Instructions* ROSS De León - 06/25/2022 9:00 AM EDT Avoid Caffeine Follow bland diet Avoid fast food/high fat food or fried foods documented in this encounterThe [facility] Work Phone: [phone] 519-402403-14-2022 Instructions* Instruction Description Start Date Patient advised to follow-up with Primary Care Physician for BMI management. [facility] Work Phone: [phone]) 612-415601-18-2022 History of Present illness Narrative* Here to [...] less sensation * XRay LS done at [place]. Report reviewed from [facility]. * IMPRESSION: * Grade 2 anterior [...] interested in MRI. Will get done at [place]. If needing to see back surgeon would like to go to [facility]. [facility] Work Phone: [phone]) [phone] History of Present illness Narrative* Here to [...] less sensation * XRay LS done at [place]. Report reviewed from [facility]. * IMPRESSION: * Grade 2 anterior [...] interested in MRI. Will get done at [place]. If needing to see back surgeon would like to go to [facility]. [facility] Work Phone: chief complaint Narrative - Reportedwellness with form -needs annual referral sent for vein specialist [facility] Work Phone: chief complaint Narrative - Reportedwellness with form -needs annual referral sent for vein specialist [facility] Work Phone: Consult note Author Yousif Caban [facility] Note Date/Time December 06, 2024 12:34pm [facility] Medical Records Department [address] [place] [address] Pre-Anesthesia Evaluation 12/06/24 1233 MR#: [id number] Acct: [id number] Name: LAISHA ROMERO Rep #:[id number] : 1980 44 From: Yousif Caban MD PCP: Dr. Sonia Perez MD Status:REG SDC Y Race: C Location: AC AC04-1 ASA Classification* ASA Classification ASA Classification: 2 Assessment & Plan Anesthesia* Anesthesia Assessment Anesthesia Assessment: Discussed sedation and/or anesthesia options, risks, benefits, and alternatives with patient/parents/legal guardian/POA. Questions invited. The patient/parents/legal guardian/POA seems to understand and agrees to proceedwith anesthesia plan. Reviewed the physical assessment, medical history, allergy history and patient home medications list prior to surgery/procedure/anesthetic and documented any changes. Performed airway and anesthesia risk assessments. Anesthesia Type Anesthesia Type: MAC Anesthesia Focused Assessment* Temperature: 98.4 F Pulse Rate: 73 Blood Pressure: 97/72 Respiratory Rate: 12 Pulse Ox: 100 Airway Assessment Mouth opens: >3 cm Mallampati Score: II Labs Anesthesia Preop lab: CBC WBC 9.0 K/mm3 (4.4-11.0) 10/12/24 09:02 10/12/24 RBC 4.91 M/mm3 (4.2-5.4) 10/12/24 09:02 10/12/24 Hgb 14.5 g/dL (12.0-15.0) 10/12/24 09:02 10/12/24 Hct 44.8 % (37-47) 10/12/24 09:02 10/12/24 Plt Count 292 K/mm3 (150-450) 10/12/24 09:02 10/12/24 CHEMISTRY Potassium 3.9 mmol/L (3.3-5.1) 10/12/24 09:02 10/12/24 Sodium 137 mmol/L (133-145) 10/12/24 09:02 10/12/24 Phosphorus 3.1 mg/dL (2.7-4.5) 09/08/24 10:21 09/08/24 BUN 8 mg/dL (4-19) 10/12/24 09:02 10/12/24 Creatinine 0.78 mg/dL (0.70-1.20) 10/12/24 09:02 10/12/24 Glucose 104 mg/dL (70-99) H 10/12/24 09:02 10/12/24 TSH 0.981 uIU/mL (0.300-4.200) 06/30/24 14:27 04/12/16 COAG Urine Test Negative Negative 12/06/24 12:20 12/06/24 Tst Clinic Negative 07/28/19 13:46 07/28/19 Pre-Assessment Diagnosis/Proposed Procedure Planned Operative Procedure(s): BLOCK CAUDAL Anesthesia History Anesthesia History - head inspector and center marker: Anesthesia History - head inspector and center marker Hx Hospitalization No 12/02/24 09:53 Any Problems With Anesthesia No 12/02/24 09:53 Cholinesterase deficiency No 12/02/24 09:53 You/Your Family Experience No 12/02/24 09:53 fever (hyperthermia) with Relationship Recent Exposure to Contagious No 12/06/24 12:29 Disease Does patient have nerve No 12/02/24 09:53 stimulator Patient instructed to have device shut off --Does patient have Pacemaker No 12/06/24 12:29 or ICD? When Was Last Pacemaker Check QUESTION #4 FULL TEXT: You/Your Family Experience fever (hyperthermia) with Anesthesia Last Oral Intake Last Oral intake: Last Oral Intake NPO since 07:30 12/06/24 12:29 Meds taken in AM with sips of water? Meds patient instructed to take am of surgery PONV PONV - head inspector and center marker: PONV - head inspector and center marker Female Yes 12/02/24 09:53 HX of Motion Sickness No 12/02/24 09:53 HX of N/V After Surgery No 12/02/24 09:53 Non-Smoker Yes 12/02/24 09:53 Duration of Surgery greater No 12/02/24 09:53 than 60 minutes Number of Risk Factors 2 12/02/24 09:53 PONV Score Moderate Risk 12/02/24 09:53 Height & Weight Height & Weight: Anesthesia: Height & Weight Height 5 ft 6 in 12/06/24 12:29 Weight: 67.3 kg 12/06/24 12:29 Body Mass Index (BMI) 23.9 12/06/24 12:29 Respiratory Assessment Respiratory Assessment - head inspector and center marker: Respiratory Tract Infection Hx - head inspector and center marker Hx Respiratory Tract Infection No 12/02/24 09:53 STOP Sleep Apnea STOP Sleep Apnea - head inspector and center marker: STOP Sleep Apnea - head inspector and center marker Hx Hypertension No 12/02/24 09:53 Hx Sleep Apnea No 12/02/24 09:53 CPAP BIPAP Do you snore loudly (louder No 12/02/24 09:53 than talking or can be heard Do you often feel tired/ Yes 12/02/24 09:53 fatigued/ sleepy during daytime? Has anyone observed you stop No 12/02/24 09:53 breathing during sleep? STOP Results Negative 12/02/24 09:53 QUESTION #5 FULL TEXT : Do you snore loudly (louder than talking or can be heard through closed doors)? 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 Specify any problems Hx of Preganancy in last 3 No 12/02/24 09:53 Months Nurse Filling Out Transfusion DSCHRIBER 12/02/24 09:53 & Questions: Date: 12/02/24 12/02/24 09:53 Time: 09:54 12/02/24 09:53 Patient unable to answer at this time (ie. confused, unrespo /Reproduction History /Reproductive History - head inspector and center marker: /Reproductive Hx- head inspector and center marker Hx Now No 12/02/24 09:53 Gestational Age (in weeks): EDC: Hx Hx Para Hx Section SAB No 12/02/24 09:53 Active Medications Active Medications: Current Medications Generic Name Dose Route Start Last Admin Trade Name Freq PRN Reason Stop Dose Admin Lactated Ringer's 1,000 mls @ 15 mls/hr 12/06/24 12:15 IV .Q48H BRENDA PFSH Medical History History of steroid therapy History of hiatal hernia History of renal disease GERD (gastroesophageal reflux disease) Gastric reflux Wears glasses Loose, teeth Alcohol use Back pain History of diverticulitis Former smoker History of pain when walking vericose vein surgery Leg swelling Leg pain Home Medications ?Medication ?Instructions ?Recorded ?Last Taken ?Type multivitamin 1 tab PO DAILY 10/24/2011/22 History Lactobacillus acidophilus 250 500 mmu cells PO DAILY 1 12/05/24 History million cell capsule (Probiotic Acidophilus) psyllium husk 0.4 gram capsule 0.8 g PO DAILY 07/02/23 12/05/24 History (Daily Fiber) pantoprazole 20 mg tablet,delayed 20 mg PO Q12H #60 ta bs 11/01/24 12/05/24 Rx release magnesium 250 mg tablet 250 mg PO QHS 12/02/2412/05 History Allergy/AdvReac Type Severity Reaction Status Date / Time latex Allergy Severe Other Verified 12/06/24 12:29 nitrofurantoin (From Allergy Intermediate Nausea Verified 12/06/24 12:29 Macrobid) esomeprazole (From Nexium) AdvReac Intermediate Other Verified 12/06/24 12:29 Family History Mother Diabetes Cancer renal cell carsinoma Surgical History Hx of surgical procedure History of endometrial ablation Hx of oral surgery Hx of colonoscopy History of esophagogastroduodenoscopy (EGD) History of back surgery H/O spinal [...] at home: Yes 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 12/06/24 1234 <Electronically signed by Yousif Caban MD > Date _ Yousif Caban MD Cosigner Signature: Date CC: ~ Signed [facility] Work Phone: Consult note Author Lis Timmons [facility] Note Date/Time December 06, 2024 1:47pm [facility] Medical Records Department [address] [place], [place] [address] [address] Anesthesia Postop Eval I 12/06/241315 MR#: [id number] Acct: [id number] Name: LAISHA ROMERO Rep #:[id number] : 1980 44 From: Lis mathur PACKAGING MACHINE OPERATOR PCP: Dr. Sonia Perez MD Status:REG [place] Y Race: C Location: [place] [address] Anesthesia: Postop Eval I Current Vital Signs Temperature: 97.4 F Pulse Rate: 78 Blood Pressure: 103/67 Respiratory Rate: 16 Pulse Ox: 100 Oxygen Delivery Method: Room Air Assessment Airway patent: Yes Spontaneous unlabored respirations: Yes Mental status: Awake and Calm nausea: No Vomiting: No Anesthesia Complication: No Fluid Hydration Crystalloid volume administer (ml): 200 Total IV fluid infused: 200 Progress Note Anesthesia document: Postop Eval 1 completed: Yes 12/06/241315 <Electronically signed by Lis majano CRNA> Date _ Lis Newtonigner Signature: Date CC: ~ Signed [facility] Work Phone: Evaluation noteThere may be information available, but it has not been provided by the sender.[facility] Work Phone: Evaluation noteNo assessment information available [facility] Work Phone: Evaluation note* Diagnosis Onset Date Resolution Status Encounter for routine gynecological examination noneactive Postoperative pain noneactiv e [facility] Work Phone: Evaluation note* Diagnosis Onset Date Resolution Status Encounter for routine gynecological examination noneactive Postoperative pain noneactiv e Strain of tendon of lower back acute Strain of tendon of lower back acute [facility] Work Phone: Evaluation note* Diagnosis Onset Date Resolution Status Strain of tendon of lower back acute Strain of tendon of lower back acute Strain of tendon of lower back acute [facility] Work Phone: Evaluation note* Diagnosis Gastroesophageal reflux disease without esophagitis- Primary Esophageal reflux Epigastric abdominal pain Abdominal pain, epigastric Indigestion Dyspepsia and other specified disorders of function of stomach documented in this encounter [facility] Work Phone: Evaluation note* Diagnosis Onset Date Resolution Status Early satiety acute Constipation chronic Dysphagia chronic GERD (gastroesophageal reflux disease) [facility] Work Phone: Evaluation note* Diagnosis Epigastric abdominal pain- Primary Abdominal pain, epigastric documented in this encounter [facility] Work Phone: Evaluation note* Diagnosis Skin 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 Epigastric abdominal pain Abdominal pain, epigastric Wellness examination documented in this encounter [facility] Work Phone: Evaluation note* Diagnosis Onset Date Resolution Status Constipation chronic Dysphagia chronic Encounter for routine gynecological examination noneactive Lack of libido noneactive [facility] Work Phone: Evaluation note* Diagnosis Onset Date Resolution Status Encounter for routine gynecological examination noneactive Lack of libido noneactive [facility] Work Phone: Evaluation note* Diagnosis Onset Date Resolution Status Cholelithiasis with chronic cholecystitis chronic GERD (gastroesophageal reflux disease) chronic [facility] Work Phone: Evaluation note* Diagnosis Annual physical exam- Primary Routine general medical examination at a health care facility Gastroesophageal reflux disease without esophagitis Esophageal reflux documented in this encounter [facility] Work Phone: Evaluation note* Diagnosis Lesion of tongue- Primary documented in this encounter [facility] Work Phone: Evaluation note* Diagnosis Rectocele- Primary [facility]* Diagnosis Rectal prolapse- Primary Other constipation Rectal prolapse [facility]* Diagnosis Annual physical exam- Primary Routine general medical examination at a health care facility Chronic bilateral low back pain with right-sided sciatica Chronic right SI joint pain Disorders of sacrum Screening, lipid Screening for diabetes mellitus documented in this encounter [facility] Work Phone: Evaluation note* Diagnosis Rectal prolapse Rectal prolapse [facility]* Diagnosis Post-operative nausea and vomiting- Primary Nausea with vomiting Pre-op evaluation Preoperative examination, unspecified Gastroesophageal reflux disease without esophagitis Esophageal reflux History of hydronephrosis Personal history of other disorder of urinary system Rectal prolapse * Assessment & Plan Note - Slava Marin APRN.CNP - 09/22/2024 11:14 AM EDT Associated Problem(s): [...] Assessment & Plan Note - Slava Marin APRN.NIBBLER OPERATOR - 09/22/2024 11:02 AM EDT Associated Problem(s): Post-operative nausea and vomiting Assessment: Reports from prior procedures. Requesting antiemetics for control of N/V. [facility] Diagnosis Post-operative nausea and vomiting- Primary Nausea with vomiting Pre-op evaluation Preoperative examination, unspecified Gastroesophageal reflux disease without esophagitis Esophageal reflux History of hydronephrosis Personal history of other disorder of urinary system Infection following procedure Other postoperative infection Abscess of anal and rectal regions Encounter for surgical aftercare following surgery on the digestive system [facility] this [facility] Author Octavio Rodríguez [facility] December 26, 2022 6:55am Note Date/Time December 26, 2022 6: 55am [facility] Medical Records Department [address] [place] [address] History & Physical Exam 12/26/22 0655 MR#: [id number] Acct: [id number] Name: LAISHA JENSEN ANGEL LUIS Rep #:[id number] : 1980 42 From: Octavio Rodríguez DO PCP: ULISES REYNOSO Status:[facility] Location: [place] [address] History and Physical Date of Admission: 12/26/22 [...] and oriented x3 Quality Reporting Tobacco Screening ([facility] 138) Smoking Status: Former smoker Assessment and [...] longer taking 1 ea PO DAILY supplement [id number]-[id number]-be-oxt 7-7-1.5 gram (Angel (with collagen)) Discontinued Reason: Pt no longer taking 1 ea PO DAILY I have examined the patient and the H&P has been reviewed. There are no clinicalchanges since date of exam. 12/26/22 0655 <Electronically signed by Octavio Rodríguez DO> Cosigner Signature (if applicable): CC: ULISES REYNOSO; Octavio Rodríguez DO~ Signed [facility] Work Phone: History of Present illness [...] the last visit is described as good [facility] Work Phone: History of Present illness Narrative* [...] the last visit is described as good [facility] Work Phone: History of Present illness NarrativePatient [...] medication for her symptoms stating they don't work.-[facility] Work Phone: History of Present illness [...] having sever stress/anxiety related to upcoming surgery [facility] Work Phone: History of Present illness Narrative* [...] in medication to help with acute stress/anxiety -[facility] Work Phone: Reason for referral (narrative)* Consultation (Routine) - Authorized Specialty Diagnoses / Procedures Referred By Dari gomez Referred To Contact Primary Care Procedures Follow Up In Primary Care Ulises Reynoso, ATTENDANT HONOR BAR-NIBBLER OPERATOR [address] [facility], [facility] [address] [place] [address] Referral ID Status Reason Start Date Expiration Date V isits Requested Visits Authorized [id number] Authorized 06/25/2022 12/22/2022 1 1 * Consultation (Routine) - Authorized Specialty Diagnoses / Procedures Referred By Contac t Referred To Contact Gastroenterology Diagnoses Gastroesophageal reflux disease without esophagitis Epigastric abdominal pain Indigestion Procedures [place] OFFICE/OUTPATIENT NEW HIGH MDM 60-74 MINUTES Uilses Reynoso APRN-CNP [address] [facility], [address] [address] Octavio Rodríguez DO [address] [place] [facility] [address] [address] Referral ID Status Reason Start Date Expiration Date Visits Requested Visits Authorized [id number] Authorized Specialty Services Required 06/25/2022 12/22/2022 1 1 [facility] Work Phone: Reason for referral (narrative)* Consultation (Routine) - Authorized Specialty Diagnoses / Procedures Referred By Contac t Referred To Contact Dermatology Diagnoses Skin abnormality Procedures [place] OFFICE/OUTPATIENT NEW [facility] 60-74 MINUTES Ulises Reynoso APRN-CNP [address] [facility], [address] [address] Karey Bone MD [address] [facility] [place] [address] Referral ID Status Reason Start Date Expiration Date Visits Requested Visits Authorized [id number] Authorized Specialty Services Required 10/29/2022 04/27/2023 1 1 * Consultation (Routine) - Authorized Specialty Diagnoses / Procedures Referred By Contac t Referred To Contact Primary Care Procedures Follow Up In Primary Care - Health Maintenance Ulises Reynoso APRN-CNP [address] [facility], [address] [place] [address] Referral ID Status Reason Start Date Expiration Date V isits Requested Visits Authorized [id number] Authorized 10/29/2022 04/27/2023 1 1 [facility] Work Phone: Reason for referral (narrative)No [facility] for [facility] Work Phone: Summary Purpose Family History [...] Recorded Date/ Time Living Will No November 29, 2 021 2:28pm Power of Emergency Room Tech No November 29, 2020 2:28pm Advance Directive Response Recorded Date/ Time Living Will No May 03, 2 023 4:03pm Power of Emergency Room Tech No May 03, 2022 4:03pm Advance Directive Response Recorded Date/ Time Living Will No May 03, 2 023 5:03pm Power of Emergency Room Tech No May 03, 2022 5:03pm Advance Directive Response Recorded Date/ Time Living Will No December 23 3 3:29pm Power of Emergency Room Tech No December 23, 2 023 3:29pm Advance Directive Response Recorded Date/ Time Living Will No December 23 3 2:29pm Power of Emergency Room Tech No December 23, 2 023 2:29pm Advance Directive Response Recorded Date/ Time Living Will No July 02, 2023 10:31am Power of Emergency Room Tech No July 01 10:31am Advance Directive Response Recorded Date/ Time Do you have a Healthcare Power of Emergency Room Tech? No October 12, 2024 8:56am Advance Directive Response Recorded Date/ Time Do you have a Healthcare Power of Emergency Room Tech? No October 12, 2024 8:56am Do you have a Healthcare Power of Emergency Room Tech? No December 02, 2024 9:53am Chief Complaint Chief Complaint Description Start Date lower back pain Preliminary chief co mplaint data, not yet signed by the author as of Chief Complaint and Reason for Visit Chief Complaint SCREENING Chief Complaint SCREENING Annual (CABINET MAKER) S/P LUMBAR FUSION/PT HAS RX Reason for Visit Encounter for routin e gynecological examination Postoperative pain Chief Complaint Annual (CABINET MAKER) S/P LUMBAR FUSION/PT HAS RX LOWER BACK [...] mammogram for malignant ne Follow up Annual (CABINET MAKER) PAP Reason for Visit Constipation Dysphagia Encounter for routine gynecological examination Lack of libido Chief Complaint Follow up Annual (CABINET MAKER) PAP EPIGASTRIC PAIN Reason for Visit Constipation Dysphagia Encounter for routine gynecological examination Lack of libido Chief Complaint Annual (CABINET MAKER) PAP EPIGASTRIC PAIN EPIGASTRIC PAIN Reason for [...] UNDER NOSE October 21, 2024 3:21 pm Chief Complaint Admit Date EMPLOYEE LAB September 08, 2024 10:1 8am pain October 12, 2024 8:38 am RASH UNDER NOSE October 21, 2024 3:21 pm Reason for Visit Admit Date Shingles October 21, 2024 3:21 pm Chief Complaint Admit Date EMPLOYEE LAB September 08, 2024 10:1 8am pain October 12, 2024 8:38 am RASH UNDER NOSE October 21, 2024 3:21 pm Block, Caudal December 06, 2024 12:01pm Additional Source Comments INFORMATION SOURCE (unrecogn ized section and content) DATE CREATED AUTHOR 11/21/2017 [facility] DATE CREATED AUTHOR AUTHOR'S ORGANIZ ATION 11/23/2021 [employer] DATE CREATED AUTHOR AUTHOR'S ORGANIZ ATION 12/14/2022 [facility] DATE CREATED AUTHOR AUTHOR'S ORGANIZ ATION 08/31/2024 [facility] DATE CREATED AUTHOR AUTHOR'S ORGANIZ ATION 09/24/2024 [facility] DATE CREATED AUTHOR AUTHOR'S ORGANIZ ATION 01/23/2025 [facility] DATE CREATED AUTHOR AUTHOR'S ORGANIZ ATION 02/02/2025 [facility] Reason for Visit (unrecogniz ed section and content) Reason For Visit Description New - 1st visit with practice Preliminary reason f or visit data, not yet signed by the author as of lower back pain Reason Comments GI referral Reason Comments GERD 3 month Specialty Diagnoses / Procedures Referred By Dari t Referred To Contact Primary Care Procedures Follow Up In Primary Care Ulises Reynoso, ATTENDANT HONOR BAR-NIBBLER OPERATOR [address] [facility], [address] [place] [address] Referral ID Status Reason Start Date Expiration Date V isits Requested Visits Authorized [id number] Authorized 06/25/2022 12/22/2022 1 1 Reason Comments [...] COLON SINGLE CONTRAST STUDY Clare Mobley DO [address] [place] [address] Phone: tel: fax: [place] [phone] Referral ID Status Reason Start Date Expiration Date V isits Requested Visits Authorized [id number] Closed Auto-Generate d Referral 08/10/2024 09/09/2025 1 [...] Active Member Role Status Dates Estephania Red PM HEAD COOK, PM HEAD COOK-C Family Provider Active No Primary Care Physician Primary Care Provider Active Team Status: Inactive Member Role Status Dates Liz Iraheta PM HEAD COOK, PM HEAD COOK-C Attending Provider Active ANGELES MONTGOMERY Primary Care Provider, Referring Provider Active Team Status: Inactive Member Role Status Dates Mario Avalos PA, PA Attending Provider Active Team Status: Inactive Member Role Status Dates No Primary Care Physician Primary Care Provider, Refer ring Provider Active MELIA Munoz Attending Provider Active Team Status: Inactive Member Role Status Dates Soraya Landry PM HEAD COOK, PM HEAD COOK-C Attending Provider, Referr ing Provider Active ANGELES MONTGOMERY Primary Care Provider Active Team Status: Inactive Member Role Status Dates Mario CÁRDENAS PA Attending Provider, Referring Provi adrianna Active No Primary Care Physician Primary Care Provider Active Team Status: Inactive Member Role Status Dates No Primary Care Physician Primary Care Provider Active Dr. Jasen Smart , DO Attending Provider, Referring P roabimaelder Active Installations Inspector Relationship Specialty Start Date End Date Ulises Reynoso, ATTENDANT HONOR BAR-NIBBLER OPERATOR [address] [facility], [address] [place] [id number] PCP - General Family Medicine 06/20/22 Team Status: Inactive Member Role Status Dates No Primary Care Physician Primary Care Provider Active Dr. Jasen Smart , Attending Provider Active Team Status: Inactive Member Role Status Dates No Primary Care Physician Referring Provider Active Kim Waggoner PM HEAD COOK, PM HEAD COOK-C Attending Provider Active ANGELES MONTGOMERY Primary Care Provider Active Team Status: Inactive Member Role Status Dates ANGELES MONTGOMERY Primary Care Provide r, Attending Provider, Referring Provider Active Team Status: Inactive Member Role Status Dates No Primary Care Physician Primary Care Provider Active Kim Waggoner PM HEAD COOK, PM HEAD COOK-C Attending Provider, Referrin g Provider Active Team Status: Inactive Member Role Status Dates Kim Waggoner PM HEAD COOK, PM HEAD COOK-C Attending Provider, Referrin g Provider Active No Primary Care Physician Primary Care Provider Active Team Status: Active Member Role Status Dates Kim Waggoner PM HEAD COOK, PM HEAD COOK-C Attending Provider, Referrin g Provider Active No Primary Care Physician Primary Care Provider Active Installations Inspector Relationship Specialty Start Date End Date Ulises Reynoso, ATTENDANT HONOR BAR-NIBBLER OPERATOR [address] [facility], [address] [place] [id number] PCP - General Family Medicine 06/20/22 Installations Inspector Relationship Specialty Start Date End Date Ulises Reynoso, ATTENDANT HONOR BAR-NIBBLER OPERATOR [address] [facility], [address] [place] [address] PCP - General Family Medicine 06/20/22 Team Status: Inactive Member Role Status Dates No Primary Care Physician Primary Care Provider Active Liz Iraheta PM HEAD COOK, PM HEAD COOK-C Attending Provider, Referring Provider Active Team Status: Active Member Role Status Dates Estephania Red PM HEAD COOK, PM HEAD COOK-C Family Provider Active ULISES REYNOSO Primary Care [...] Care Physician Referring Provider Active Liz Iraheta PM HEAD COOK, PM HEAD COOK-C Attending Provider Active ANGELES MONTGOMERY Primary Care Provider Active Team Status: Inactive Member Role Status Dates No Primary Care Physician Primary Care Provider Active Liz Iraheta PM HEAD COOK, PM HEAD COOK-C Attending Provider Active Team Status: Inactive Member Role Status Dates No Primary Care Physician Primary Care Provider Active Dr. Octavio Rodríguez DO Attending Provider, Referring Provider Active Team Status: Active Member Role Status Dates Estephania Red PM HEAD COOK, PM HEAD COOK-C Family Provider Active Dr. Reed Herrera MD [...] Active Member Role Status Dates Estephania Red PM HEAD COOK, PM HEAD COOK-C Family Provider Active SONIA PEREZ Primary Care Provider Active Team Status: Active Member Role Status Dates Dr. Pepe Titus MD Attending Provid er, Referring Provider, Other Provider Active CHRIS SCOTT Primary Care Provider Active Team Status: Inactive Member Role Status Dates Dr. Pepe Titus MD Attending Provider, Referring Provider Active CHRIS SCOTT Primary Care Provider Active Installations Inspector Relationship Specialty Start Date End Date Sonia Perez MD [address] [place] [address] PCP - General Family Medicine 08/28/23 Installations Inspector Relationship Specialty Start Date End Date Sonia Perez MD [address] [address] PCP - General Family Medicine 03/12/24 Team Status: Active Member Role Status Dates Estephania Red PM HEAD COOK, PM HEAD COOK-C Family Provider Active Dr. Sonia Perez MD Primary Care Provider [...] 2024 End: June 30, 2024 Liz Iraheta PM HEAD COOK, PM HEAD COOK-C Attending Provider Active Start: June 30, 2024 End: June 30, 2024 Team Status: Inactive Member Role Status Dates Dr. Sonia Perez MD Primary Care Provider Active Start: June 30, 2024 End: June 30, 2024 Liz Iraheta PM HEAD COOK, PM HEAD COOK-C Attending Provider Active Start: June 30, 2024 End: June 30, 2024 Liz Iraheta PM HEAD COOK, PM HEAD COOK-C Referring Provider Active Start: June 30, 2024 End: June 30, 2024 Installations Inspector Relationship Specialty Start Date End Date Reed Herrera [address] [facility] [address] [place] [address] PCP - General 03/07/20 Installations Inspector Relationship Specialty Start Date End Date Reed Herrera MD [address] [place] [address] PCP - General 05/18/04 Installations Inspector Relationship Specialty Start Date End Date Sonia Perez MD [address] [facility] [address] [place] [id number] PCP - General Family Medicine 03/12/24 Installations Inspector Relationship Specialty Start Date End Date Sonia Garza APRN [address] [place] [address] [place] [address] PCP - General Family Medicine 09/09/24 Installations Inspector Relationship Specialty Start Date End Date Sonia Garza APRN [address] [place] [address] [place] [address] PCP - General Family Medicine 09/09/24 Installations Inspector Relationship Specialty Start Date End Date Sonia Garza APRN [address] [place] [address] [place] [address] PCP - General Family Medicine 09/09/24 Installations Inspector Relationship Specialty Start Date End Date Sonia Garza APRN [address] [place] [address] [place] [address] PCP - General Family Medicine 09/09/24 Team Status: Active Member Role/Relationship Status Dates Dr. Sonia Perez MD Primary Care Provider Active Team Status: Inactive Member Role/Relationship Status Dates Dr. Sonia Perez MD Primary Care Provider Active Start: June 30, 2024 End: June 30, 2024 Dr. Sonia Perez MD Referring Provider Active Start: June 30, 2024 End: June 30, 2024 Liz Iraheta PM HEAD COOK, PM HEAD COOK-C Attending Provider Active Start: June 30, 2024 End: June 30, 2024 Team Status: Inactive Member Role/Relationship Status Dates Dr. Sonia Perez MD Primary Care Provider Active Start: June 30, 2024 End: June 30, 2024 Liz Iraheta PM HEAD COOK, PM HEAD COOK-C Attending Provider Active Start: June 30, 2024 End: June 30, 2024 Liz Iraheta PM HEAD COOK, PM HEAD COOK-C Referring Provider Active Start: June 30, 2024 [...] October 12, 2024 End: October 12, 2024 Installations Inspector Relationship Specialty Start Date End Date Sonia Garza APRN [address] [place] [address] PCP - General Family Medicine 09/09/24 Installations Inspector Relationship Specialty Start Date End Date Sonia Garza APRN [address] [place] [address] PCP - General Family Medicine 09/09/24 Team [...] October 21, 2024 End: October 21, 2024 MELIA Munoz Attending Provider Active Sta rt: October 21, 2024 End: October 21, 2024 Team Status: Active Member Role/Relationship Status [...] October 21, 2024 End: October 21, 2024 MELIA Munoz Attending Provider Active Sta rt: October 21, 2024 End: October 21, 2024 Team Status: Inactive Member Role/Relationship Status Dates Dr. Sonia Perez MD Primary Care Provider Active Start: October 25, 2024 End: October 25, 2024 Dr. David Posey MD Attending Provider Active Start: October 25, 2024 End: October 25, 2024 Dr. David Posey MD Referring Provider Active Start: October 25, 2024 End: October 25, 2024 Team Status: Inactive Member Role/Relationship Status Dates Dr. Sonia Perez MD Primary Care Provider Active Start: December 06, 2024 End: December 06, 2024 Dr. David Posey MD Attending Provider Active Start: December 06, 2024 End: December 06, 2024 Dr. David Posey MD Referring Provider Active Start: December 06, 2024 End: December 06, 2024 <item> Privacy Markings (unrecogniz ed section [...] or prosecute any alcohol or drug abuse patient.[facility] RehabilitationIn the event this information is protected by the Federal Confidentiality of Alcohol and Drug Abuse Patient Records regulations: The Federal rules restrict any use of the information to criminally investigate or prosecute any alcohol or drug abuse patient.[facility] RehabilitationIn the event this information is protected by the Federal Confidentiality of Alcohol and Drug Abuse Patient Records regulations: The Federal rules restrict any use of the information to criminally investigate or prosecute any alcohol or drug abuse patient.[facility] RehabilitationIn the event this information is protected by the Federal Confidentiality of Alcohol and Drug Abuse Patient Records regulations: The Federal rules restrict any use of the information to criminally investigate or prosecute any alcohol or drug abuse patient.[facility] RehabilitationIn the event this information is protected by the Federal Confidentiality of Alcohol and Drug Abuse Patient Records regulations: The Federal rules restrict any use of the information to criminally investigate or prosecute any alcohol or drug abuse patient.[facility] RehabilitationIn the event this information is protected by the Federal Confidentiality of Alcohol and Drug Abuse Patient Records regulations: The Federal rules restrict any use of the information to criminally investigate or prosecute any alcohol or drug abuse patient.[facility] the event this information is protected by the Federal Confidentiality of Alcohol and Drug Abuse Patient Records regulations: The Federal rules restrict any use of the information to criminally investigate or prosecute any alcohol or drug abuse patient.[facility] FOR RECORDS PERTAINING TO PATIENTS WHO ARE [...] BE BASED ON THE PRIMARY CLINICAL RECORDS. [facility] [employer] [facility]. provides no warranty or guarantee of the accuracy or completeness of information in this document.
[2025-03-07 07:08] VITALS: BP 131/81; PULSE 80; RESP 18; TEMP 36.7; O2SAT 100; BMI 23.8
[2025-03-07 07:19] LABS: Internal QC Validated? YES +Cl - CLEAR BKGD; Pregnancy, Urine Negative Negative
[2025-03-07] MEDS: Lactated Ringers 1,000 ML 15 ML IV (07:20)
--- NOTE | 2025-03-07 07:30 | RAD_ITS ---
PROCEDURE: Intraoperative fluoroscopic services. 03/07/2025 REASON FOR EXAM: MEDIAL BRANCH BLOCK, LUMBAR L4, L5, S1 TECHNIQUE: Procedure Code: RADSPLS Modality: DX Procedure: L/S SPINE MIN 4 VIEWS. Intraoperative fluoroscopic services provided for L4-L5 and L5-S1 level medial branch nerve block. Fluoroscopy: 13.1 seconds. Radiation dose: 3.09 mGy. 7 images were submitted. COMPARISON: None FINDINGS: Intraoperative fluoroscopic services provided for left L4-L5 and L5-S1 medial branch block. RAD/L/S Spine Min 4 Views IMPRESSION: Intraoperative fluoroscopic services provided for left L4-L5 and L5-S1 medial b ranch block. Reading Location: [facility]
--- NOTE | 2025-03-07 07:36 | PRE.ANES_ITS ---
ASA Classification* ASA Classification ASA Classification: 2 Assessment & Plan Anesthesia* Anesthesia Assessment Anesthesia Assessment: Discussed sedation and/or anesthesia options, risks, benefits, and alternatives with patient/parents/legal guardian/POA. Questions invited. The patient/parents/legal guardian/POA seems to understand and agrees to proceed with anesthesia plan. Reviewed the physical assessment, medical history, allergy history and patient home medications list prior to surgery/procedure/anesthetic and documented any changes. Performed airway and anesthesia risk assessments. Anesthesia Type Anesthesia Type: MAC History Source History Obtained from:: Patient and Chart Anesthesia Focused Assessment* Temperature: 98.0 F Pulse Rate: 80 Blood Pressure: 131/81 Respiratory Rate: 18 Pulse Ox: 100 Oxygen Delivery Method: Room Air Airway Assessment Mouth opens: 2 cm Mallampati Score: II Teeth Condition: Intact Neck Range of motion (ROM): Full ROM Labs Anesthesia Preop lab: CBC WBC, (4.4-11.0) 9.0 K/mm3 10/12/24, 09:02 RBC, (4.2-5.4) 4.91 M/mm3 10/12/24, 09:02 Hgb, (12.0-15.0) 14.5 g/dL 10/12/24, 09:02 Hct, (37-47) 44.8 % 10/12/24, 09:02 Plt Count, (150-450) 292 K/mm3 10/12/24, 09:02 CHEMISTRY Potassium, (3.3-5.1) 3.9 mmol/L 10/12/24, 09:02 Sodium, (133-145) 137 mmol/L 10/12/24, 09:02 Phosphorus, (2.7-4.5) 3.1 mg/dL 09/08/24, 10:21 BUN, (4-19) 8 mg/dL 10/12/24, 09:02 Creatinine, (0.70-1.20) 0.78 mg/dL 10/12/24, 09:02 Glucose, (70-99) 104 mg/dL H 10/12/24, 09:02 TSH, (0.300-4.200) 0.981 uIU/mL 06/30/24, 14:27 COAG Urine Test Negative Negative Today, 07:00 [facility] Negative 07/28/19, 13:46 Pre-Assessment Diagnosis/Proposed Procedure Planned Operative Procedure(s): (B) Block, Medial Branch Nerve, Lumbar Anesthesia History Anesthesia History - lining finisher: Anesthesia History - lining finisher Hx Hospitalization No 03/02/25 13:46 Any Problems With Anesthesia No 03/02/25 13:46 Cholinesterase deficiency No 03/02/25 13:46 You/Your Family Experience No 03/02/25 13:46 fever (hyperthermia) with Relationship Recent Exposure to Contagious No 03/07/25 07:08 Disease Does patient have nerve No 03/02/25 13:46 stimulator Patient instructed to have device shut off --Does patient have Pacemaker No 03/07/25 07:08 or ICD? When Was Last Pacemaker Check QUESTION #4 FULL TEXT: You/Your Family Experience fever (hyperthermia) with Anesthesia Any additional information?: No Last Oral Intake Last Oral intake: Last Oral Intake NPO since 21:30 03/07/25 07:08 Meds taken in AM with sips of No 03/07/25 07:08 water? Meds patient instructed to take am of surgery Any additional information?: No PONV PONV - lining finisher: PONV - lining finisher Female Yes 03/02/25 13:46 HX of Motion Sickness No 03/02/25 13:46 HX of N/V After Surgery No 03/02/25 13:46 Non-Smoker Yes 03/02/25 13:46 Duration of Surgery greater No 03/02/25 13:46 than 60 minutes Number of Risk Factors 2 03/02/25 13:46 PONV Score Moderate Risk 03/02/25 13:46 Any additional information?: No Height & Weight Height & Weight: Anesthesia: Height & Weight Height 5 ft 6 in 03/07/25 07:08 Weight: 67 kg 03/07/25 07:08 Body Mass Index (BMI) 23.8 03/07/25 07:08 Respiratory Assessment Respiratory Assessment - lining finisher: Respiratory Tract Infection Hx - lining finisher Hx Respiratory Tract Infection No 03/02/25 13:46 Any additional information?: No STOP Sleep Apnea STOP Sleep Apnea - lining finisher: STOP Sleep Apnea - lining finisher Hx Hypertension No 03/02/25 13:46 Hx Sleep Apnea No 03/02/25 13:46 CPAP BIPAP Do you snore loudly (louder No 03/02/25 13:46 than talking or can be heard Do you often feel tired/ No 03/02/25 13:46 fatigued/ sleepy during daytime? Has anyone observed you stop No 03/02/25 13:46 breathing during sleep? STOP Results Negative 03/02/25 13:46 QUESTION #5 FULL TEXT : Do you snore loudly (louder than talking or can be heard through closed doors)? 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 Specify any problems Hx of Preganancy in last 3 N/A 03/02/25 13:46 Months Nurse Filling Out Transfusion NBUCHER 03/02/25 13:46 & Questions: Date: 03/02/25 03/02/25 13:46 Time: 13:46 03/02/25 13:46 Patient unable to answer at this time (ie. confused, unrespo Any additional information?: No /Reproduction History /Reproductive History - lining finisher: /Reproductive Hx- lining finisher Hx Now No 03/02/25 13:46 Gestational Age (in weeks): EDC: Hx Hx Para Hx Section SAB No 03/02/25 13:46 Does the father of the baby or his family experience fever w Father of the baby Malignant Hypertension history comment Any additional information?: No Active Medications Active Medications: Current Medications Generic Name Dose Route Start Last Admin Trade Name Freq PRN Reason Stop Dose Admin Lactated Ringer's 1,000 mls @ 15 mls/hr 03/07/25 07:00 03/07/25 07:20 IV 15 mls/hr .Q48H BRENDA Administration PFSH Medical History History of steroid therapy History of hiatal hernia History of renal disease GERD (gastroesophageal reflux disease) Gastric reflux Wears glasses Loose, teeth Alcohol use Back pain History of diverticulitis Former smoker History of pain when walking vericose vein surgery Leg swelling Leg pain Home Medications ?Medication ?Instructions ?Recorded ?Last Taken ?Type multivitamin 1 tab PO DAILY 10/24/2002/21 History Lactobacillus acidophilus 250 500 mmu cells PO DAILY 1 03/06/25 History million cell capsule (Probiotic Acidophilus) pantoprazole 20 mg tablet,delayed 20 mg PO Q12H #60 ta bs 11/01/24 03/06/25 Rx release magnesium 250 mg tablet 250 mg PO QHS 12/02/2403/06 History psyllium husk 0.4 gram capsule 0.4 g PO DAILY 03/02/25 03/06/25 History (Daily Fiber) Allergy/AdvReac Type Severity Reaction Status Date / Time latex Allergy Severe Other Verified 03/07/25 07:07 nitrofurantoin (From Allergy Intermediate Nausea Verified 03/07/25 07:07 Macrobid) esomeprazole (From Nexium) AdvReac Intermediate Other Verified 03/07/25 07:07 Family History Mother Diabetes Cancer renal cell carsinoma Surgical History Hx of surgical procedure History of endometrial ablation Hx of oral surgery Hx of colonoscopy History of esophagogastroduodenoscopy (EGD) History of back surgery H/O spinal fusion Hx of vein stripping Hx of rectal sphincterotomy History of hysteroscopy H/O dilation and curettage 4th degree tear in sphincterplasty delivery delivered Social History Smoking Status: Former smoker alcohol intake: current details: social substance use type: does not use caffeine: Yes frequency: 1-2 times per week seatbelt use: always do you feel safe at home: Yes 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 Physical Exam Const alert and oriented x3 Orientation / Consciousness: awake HEENT dentition normal Neck full ROM Resp normal respiratory effort, normal air movement and clear to auscultation bilaterally Auscultation: clear to auscultation bilaterally Cardio regular rate, regular rhythm and no murmurs Extremity full ROM Skin Rashes: no rashes Neuro oriented x3 and moves all extremities
[2025-03-07 07:37] VITALS: BP 131/81; PULSE 80; RESP 18; TEMP 36.7; O2SAT 100
[2025-03-07] MEDS: Lidocaine 1% (5 ml sdv) 5 ML Vial (08:32)
[2025-03-07 08:40] VITALS: BP 105/75; BP 131/81; PULSE 76; RESP 16; TEMP 36.5; O2SAT 100
[2025-03-07 08:45] VITALS: BP 105/75; BP 113/74; BP 131/81; PULSE 75; PULSE 78; RESP 16; TEMP 36.5; O2SAT 100; O2SAT 99
--- NOTE | 2025-03-07 08:45 | PCM.POST.ANE ---
Anesthesia: Postop Eval I Current Vital Signs Temperature: 97.7 F Pulse Rate: 78 Blood Pressure: 105/75 Respiratory Rate: 16 Pulse Ox: 99 Assessment Airway patent: Yes Spontaneous unlabored respirations: Yes nausea: No Vomiting: No Anesthesia Complication: No Fluid Hydration Crystalloid volume administer (ml): 200 Total IV fluid infused: 200 Progress Note Anesthesia document: Postop Eval 1 completed: Yes
--- NOTE | 2025-03-07 08:48 | PCM.OPRPT ---
Operative Report (Standard) Operative Information Date of Procedure: 03/07/25 Pre-Operative Diagnosis: Lumbosacral spondylosis, lumbosacral degenerative disc disease, lumbar facet arthropathy Post-Operative Diagnosis: Lumbosacral spondylosis, lumbosacral degenerative disc disease, lumbar facet arthropathy Surgery/Procedure Performed: Bilateral lumbar medial branch block at L4, L5, S1 under fluoroscopic guidance irrigation worker: No Type of Anesthesia: Local MAC RN Documented Start/Stop Times: Operation Date: 03/07/25 08:30 Case Time Into Pre-Op 03/07/25 06:55 Anesthesia Start 03/07/25 08:25 Into Room 03/07/25 08:25 Procedure Start 03/07/25 08:31 Procedure End 03/07/25 08:35 Anesthesia End 03/07/25 08:38 Out of Room 03/07/25 08:38 Into Recovery 03/07/25 08:40 Procedure Start Time: 08:48 Procedure Stop Time: 08:48 Select all DRAINS/GRAFTS/IMPLANTS that apply: None Estimated Blood Loss: 0 Specimen collected: No Description of surgery: ANESTHESIA: MAC. BLOOD LOSS: Minimal. COMPLICATIONS: None. DESCRIPTION OF PROCEDURE: History and physical of today was reviewed. Risks and benefits of the procedure were explained. The patient understood and agreed to proceed. Informed consent was obtained. IV inserted per routine protocol. The patient was taken to the operating room and placed in the prone position with a pillow positioned underneath the abdomen. The lower back was prepped and draped in a sterile fashion using iodine x3. Under fluoroscopy on oblique view, the L3 through S1 vertebral bodies were visualized. The skin and subcutaneous tissue was anesthetized with approximately 5 mL of 1% lidocaine using a 25-gauge regular needle. Under direct visualization with fluoroscopy, at approximately 25-degree angle starting on the left L4, ending on the right L4, passing through the L5 and S1 bilaterally, using a 22-gauge 3-1/2-inch spinal needle, the needle was advanced via the skin. The tip of the needle was maneuvered and directed towards the superior medial gutter of the transverse process at the vicinity of the medial branch. Once tip of the needle was in contact with the bone, the needle was pulled approximately 2 mm off the bone. After negative aspiration of blood or CSF and confirmation on AP as well as oblique view, a total of 12 mL of preservative-free 0.25% Marcaine with 80 mg of Depo-Medrol was injected in divided doses between those four levels. The needles were then removed intact. The patient experienced no sign or symptoms of intrathecal or intravascular injection. The patient experienced no paresthesia. The procedure was completed without any apparent difficulty or any complications. The patient appeared to tolerate it well. ASSESSMENT AND PLAN: This is a 45-year-old female with lumbosacral spondylosis, lumbosacral degenerative disc disease, lumbar facet arthropathy, status post bilateral lumbar medial branch block at L4-S1, patient will continue her current medications, patient will follow-up in approximately 2 weeks for reevaluation. Surgical Findings: 0 Complications Complications: No Admit VTE Documentation VTE Present on Admission: No VTE Mechan Device Prophylaxis: None VTE Pharm Prophylaxis ordered?: No
[2025-03-07 08:50] VITALS: BP 104/55; BP 131/81; PULSE 71; RESP 16; TEMP 36.7; O2SAT 98
[2025-03-07 09:00] VITALS: BP 131/81
--- NOTE | 2025-03-07 14:54 | POSTOPAN2_ITS ---
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 Spontaneous unlabored Yes 03/07/25 08:45 HEAD TURBINE OPERATOR.[email or web address] respirations Mental status nausea No 03/07/25 08:45 HEAD TURBINE OPERATOR.[email or web address] Vomiting No 03/07/25 08:45 HEAD TURBINE [email or web address].[email or web address] Anesthesia Postop Eval I: Fluid Summary Crystalloid volume administer 200 03/07/25 08:45 HEAD TURBINE OPERATOR.TNES (ml) Colloids volume administered ( ml) Blood Product volume administered (ml) Total IV fluid infused 200 03/07/25 08:45 HEAD TURBINE OPERATOR.TNES Anesthesia Postop Eval I: Summary Notes Anesthesia Complication No 03/07/25 08:45 HEAD TURBINE [email or web address].TNES Anesthesia Complication Comment: Post-operative progress note Anesthesia: Postop Eval II Evaluation Mental status: Awake and Calm Pain Level: 0 nausea: No Vomiting: No Complications Anesthesia Complication: No
--- NOTE | 2025-03-07 14:54 | PCM.POSTANE2 ---
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 Spontaneous unlabored Yes 03/07/25 08:45 WIRER PASSENGER CAR.[email or web address] respirations Mental status nausea No 03/07/25 08:45 WIRER PASSENGER CAR.TNES Vomiting No 03/07/25 08:45 WIRER PASSENGER CAR.TNES Anesthesia Postop Eval I: Fluid Summary Crystalloid volume administer 200 03/07/25 08:45 WIRER PASSENGER CAR.TNES (ml) Colloids volume administered ( ml) Blood Product volume administered (ml) Total IV fluid infused 200 03/07/25 08:45 WIRER PASSENGER CAR.TNES Anesthesia Postop Eval I: Summary Notes Anesthesia Complication No 03/07/25 08:45 WIRER PASSENGER CAR.TNES Anesthesia Complication Comment: Post-operative progress note Anesthesia: Postop Eval II Evaluation Mental status: Awake and Calm Pain Level: 0 nausea: No Vomiting: No Complications Anesthesia Complication: No
== END 2025-03-07 09:18 | disposition home or self-care (01) ==
LOC: SDC 06:53 → AC 06:54
PROVIDERS: Anesthesiology; PCP Family Medicine; Referring Provider Anesthesiology Pain Medicine; Visit Provider Anesthesiology Pain Medicine
PROC: 3E0S3BZ Introduction of Anesthetic Agent into Epidural Space, Percutaneous Approach (ICD-10-PCS; CPT 62322; principal; 2025-03-07 08:25)
DX: M47.817 Spondylosis without myelopathy or radiculopathy, lumbosacral region (principal); M51.379 Other intervertebral disc degeneration, lumbosacral region without mention of lumbar back pain or lower extremity pain; M46.96 Unspecified inflammatory spondylopathy, lumbar region; K21.9 Gastro-esophageal reflux disease without esophagitis; Z79.899 Other long term (current) drug therapy; Z87.891 Personal history of nicotine dependence
CPT/HCPCS: 64493; 64494; 01992; 64483; 72110; 81025